=== PATIENT | male | born 2000 | race Caucasian/White ===

== ENCOUNTER 2022-01-24 13:25 | Inpatient (IN) | payer OTHER, MEDICAID, SELFPAY ==
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
[2022-01-24 14:04] VITALS: BP 133/87; PULSE 103; RESP 18; TEMP 37.3; O2SAT 97; BMI 18.3
[2022-01-24 14:35] LABS: MANUAL DIFF FLAG NO
[2022-01-24 14:39] LABS: Appearance Urine HAZY; Color Urine YELLOW; Glucose Urine UA NEG (NEG); Leukocyte Esterase Urine NEG (NEG); Nitrite Urine NEG (NEG); Specific Gravity - Urine 1.015 (1.005-1.025); Urine Blood NEG (NEG); Urine Ketones NEG (NEG); Urine Protein NEG (NEG-TRACE)
[2022-01-24 14:39] LABS: Basophils Percent Auto 0.5 % (0-2); Eosinophils Percent Auto 0.2 % (0-4); Hematocrit 44.8 % (42.0-52.0); Hemoglobin 14.4 g/dl (14.0-18.0); Imm Gran Abs Auto 0.03 X10*3/uL (0.00-0.03); Imm Gran Pct Auto 0.5 % (0.0-0.4); Lymphocytes Absolute Auto 1.4 X10*3/uL (1.2-4.9); Lymphocytes Percent Auto 23.1 % (20-40); Mean Corpuscular HGB Conc 32.1 g/dl (31.0-36.0); Mean Corpuscular Hemoglobin 29.4 pg (27.0-33.0); Mean Corpuscular Volume 91.4 fL (80.0-98.0); Monocytes Absolute Auto 0.4 X10*3/uL (0.1-1.2); Monocytes Percent Auto 7.1 % (2-11); Neutrophils Percent Auto 68.6 % (45-73); Platelet Count 352 X10*3/uL (160-400); Red Cell Distribution Width 12.4 % (11.0-16.0); White Blood Count 5.9 X10*3/uL (4.8-10.8)
[2022-01-24] MEDS: OLANZapine 5 MG TABLET PO (14:42)
--- NOTE | 2022-01-24 14:46 | PC.NURSE ---
Pt medicated with zyprexa as charted, pt states he is going to try to take a nap.
[2022-01-24 14:54] LABS: Ethanol 35 mg/dL
[2022-01-24 14:55] LABS: COVID-19 Test Negative (Negative); IDNOW Serial# 16C4AD1C
[2022-01-24 14:56] LABS: Amphetamine Screen Urine Not Detected (Not Detect); Barbiturates, Urine Not Detected (Not Detect); Benzodiazepines Screen Urine Not Detected (Not Detect); Cannabinoid Screen Urine POSITIVE (Not Detect); Cocaine Screen Urine Not Detected (Not Detect); Fentanyl, urine Not Detected (Not Detect); Opiate Screen Urine Not Detected (Not Detect); Phencyclidine Screen Urine Not Detected (Not Detect)
[2022-01-24 14:58] LABS: Alanine Aminotransferase 16 U/L (0-40); Albumin Level 5.2 g/dL (3.5-5.0); Alkaline Phosphatase 48 U/L (39-117); Anion Gap 13 (12-20); Aspartate Amino Transferase 20 U/L (5-37); Bilirubin Direct 0.3 mg/dL (0.0-0.5); Bilirubin Total 0.6 mg/dL (0.0-1.0); Blood Urea Nitrogen 10 mg/dL (9-16); Calcium 10.7 mg/dL (8.4-10.2); Carbon Dioxide 28 mmol/L (22-29); Chloride 106 mmol/L (96-108); Creatinine Clr Calc Pharmacy 106.9; Estimated Glomerular Filt Rate > 60; Glucose Random 77 mg/dL (60-115); Magnesium 2.6 mg/dL (1.6-2.6); Potassium 4.8 mmol/L (3.3-5.1); Sodium 142 mmol/L (135-145); Total Protein 7.7 g/dL (6.5-8.0)
--- NOTE | 2022-01-24 15:45 | PC.NURSE ---
Pt sleeping at thsi time
--- NOTE | 2022-01-24 16:10 | PC.NURSE ---
Marlee sent to [facility]
--- NOTE | 2022-01-25 00:58 | MHC.CARE ---
Late entry- [facility] was unable to send a clinician for evaluation. CARE team completed assessment, plan is for inpt psych admission. Sect 12a is in chart.
[2022-01-25 06:06] VITALS: BP 97/62; PULSE 70; RESP 16; TEMP 36.7; O2SAT 99
[2022-01-25] MEDS: Nicotine Polacrilex 2 MG GUM BUCCAL ×2 (06:35→23:08)
--- NOTE | 2022-01-25 06:39 | PC.NURSE ---
Patient slept through the night, no distress observed/reported, med rec completed/off medication/ pending provider's approval, disposition per care team is section 12 inpatient bed search, VSS, behavior pleasant and respectful, thought process coherent without any paranoia
--- NOTE | 2022-01-25 07:02 | PC.NURSE ---
Report received. Pt currently resting, denies complaints, in no apparent distress. PT is inpatient bedsearch.
[2022-01-25 10:37] VITALS: BP 112/76; PULSE 76; TEMP 36.9; O2SAT 99
[2022-01-25 11:26] LABS: COVID-19 Test Negative (Negative); IDNOW Serial# 55D5AD1C
[2022-01-25 15:48] VITALS: BP 128/77; PULSE 68; RESP 16; TEMP 36.7
[2022-01-25 16:35] VITALS: BP 159/84; PULSE 72; RESP 20; TEMP 36.1; O2SAT 99
[2022-01-25 18:00] VITALS: BP 120/71; PULSE 60; RESP 16
--- NOTE | 2022-01-25 18:16 | PC.NURSE ---
PT signed a 3 day notice
--- NOTE | 2022-01-25 18:17 | PC.NURSE ---
PT signed a 3 day notice on 01/25/2022
--- NOTE | 2022-01-25 18:17 | PC.ADMIT ---
PT is a 21 year old bahamian speaking male that was admitted onto this unit at 16:32 via wheelchair from [facility] on a conditional voluntary basis. PT was brought to the ED by his mother due to recent delusional and paranoid thought processes. PT has not been attending to ADLS at home, has been drinking alcohol everyday and currently believes there are bots implanted in him and only Francesco Henryk can help him and he has been in contact with him. PT is tearful on admission and speech is tangential and delusional. COVID antigen negative, TOX screen + for marijuana, ETOH 35 upon arrival to ER. PT denies any symptoms of ETOH withdrawl at this time. PT is a current everyday drinker of approximately 4 beers and uses a nicotine vape pen daily. Smoking cessation initiated. PT has not had a flu vaccine this season and refuses upon admission. PT denies SI/HI, AH/VH at this time but describes seeing figures in the past, feels safe on unit. PT signed a 3 day notice shortly after arriving on unit. All legals signed, treatment plan done, safety tool still needs to be completed as patient is unable to complete it due to mental status at this time.
[2022-01-25] MEDS: traZODone HCL 50 MG TABLET PO ×3 (20:49→23:06)
--- NOTE | 2022-01-25 20:55 | PC.NURSE ---
PT currently scoring 0 on CIWA scale. Discussed w/ pt that symptoms may occur due to amount and frequency of alcohol intake and to seek out RN if any symptoms begin to occur. VSS at this time, resting in bed, respirations even and unlabored.
[2022-01-25] MEDS: LORazepam 1 MG TABLET PO (23:07)
[2022-01-25] MEDS: Acetaminophen 325 MG TABLET 650 MG PO (23:07)
--- NOTE | 2022-01-26 | ECG_ITS ---
Test Reason : check qt Blood Pressure : / mmHG Vent. Rate : 070 BPM Atrial Rate : 070 BPM P-R Int : 158 ms QRS Dur : 086 ms QT Int : 366 ms P-R-T Axes : 012 074 042 degrees QTc Int : 395 ms Normal sinus rhythm with sinus arrhythmia Normal ECG No previous ECGs available Referred By: Albino Miranda Electronically Signed By:URSULA CRUM MD
[2022-01-26] MEDS: LORazepam 1 MG TABLET PO ×3 (08:27→20:22)
[2022-01-26] MEDS: Thiamine HCL 100 MG TABLET PO (08:27)
[2022-01-26] MEDS: Multivitamin TABLET 1 TAB PO (08:28)
[2022-01-26 08:30] VITALS: BP 133/81; PULSE 81; TEMP 36.9
[2022-01-26 09:42] LABS: Alanine Aminotransferase 12 U/L (0-40); Albumin Level 4.7 g/dL (3.5-5.0); Alkaline Phosphatase 44 U/L (39-117); Aspartate Amino Transferase 17 U/L (5-37); Bilirubin Direct 0.2 mg/dL (0.0-0.5); Bilirubin Total 0.4 mg/dL (0.0-1.0); Cholesterol 137 mg/dL; HDL Cholesterol 50 mg/dL; LDL Cholesterol Calculated 65 mg/dl; Magnesium 2.3 mg/dL (1.6-2.6); Total Protein 6.9 g/dL (6.5-8.0); Triglycerides 111 mg/dL
[2022-01-26 10:07] LABS: Free T4 (Free Thyroxine) 1.14 ng/dL (0.71-1.85); Thyroid Stimulating Hormone 0.91 uIU/mL (0.32-4.0)
[2022-01-26 10:21] LABS: Estimated Average Glucose 91 mg/dL; Hemoglobin A1c % 4.8 %
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
[2022-01-26 10:28] LABS: Folate 12.9 ng/mL (> or = 4.0); Vitamin B12 296 pg/mL (200-900)
[2022-01-26] MEDS: OLANZapine 10 MG TABLET PO (11:14)
[2022-01-26] MEDS: Divalproex Sodium ER 250 MG TAB.ER.24H PO (12:56)
[2022-01-26 18:00] VITALS: BP 124/66; PULSE 81; TEMP 36.8
[2022-01-26] MEDS: Divalproex Sodium ER 500 MG TAB.ER.24H PO (20:22)
[2022-01-26] MEDS: Magnesium Hydrox/Alum Hydrox 30 ML ORAL.SUSP PO (22:26)
[2022-01-27 06:00] VITALS: BP 124/66; PULSE 118; RESP 18; TEMP 36.7; O2SAT 99
[2022-01-27] MEDS: Divalproex Sodium ER 500 MG TAB.ER.24H PO (09:22)
[2022-01-27] MEDS: Thiamine HCL 100 MG TABLET PO (09:22)
[2022-01-27] MEDS: LORazepam 1 MG TABLET PO ×2 (09:22→20:41)
[2022-01-27] MEDS: Multivitamin TABLET 1 TAB PO (09:22)
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
[2022-01-27 17:32] VITALS: BP 146/72; PULSE 104; RESP 14; TEMP 36.9; O2SAT 99
[2022-01-27] MEDS: Divalproex Sodium ER 250 MG TAB.ER.24H 750 MG PO (20:41)
[2022-01-27] MEDS: risperiDONE 2 MG TABLET PO (20:41)
[2022-01-27] MEDS: traZODone HCL 50 MG TABLET PO (21:56)
[2022-01-27] MEDS: Nicotine Polacrilex 2 MG GUM BUCCAL (21:58)
[2022-01-28 06:00] VITALS: BP 118/75; PULSE 101; RESP 16; TEMP 37; O2SAT 98
[2022-01-28] MEDS: Thiamine HCL 100 MG TABLET PO (08:33)
[2022-01-28] MEDS: Divalproex Sodium ER 250 MG TAB.ER.24H PO (08:33)
[2022-01-28] MEDS: Multivitamin TABLET 1 TAB PO (08:33)
[2022-01-28] MEDS: LORazepam 1 MG TABLET PO ×2 (08:33→21:05)
--- NOTE | 2022-01-28 13:08 | PC.NURSE ---
pt retracted three day notice
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
[2022-01-28 18:00] VITALS: BP 111/76; PULSE 91; RESP 20; TEMP 37.2; O2SAT 97
[2022-01-28] MEDS: traZODone HCL 50 MG TABLET PO (21:05)
[2022-01-29 06:00] VITALS: BP 123/70; PULSE 103; RESP 16; TEMP 37.1; O2SAT 97
[2022-01-29] MEDS: LORazepam 1 MG TABLET PO ×2 (08:18→20:13)
[2022-01-29] MEDS: Divalproex Sodium ER 250 MG TAB.ER.24H PO (08:18)
[2022-01-29] MEDS: Thiamine HCL 100 MG TABLET PO (08:18)
[2022-01-29] MEDS: Multivitamin TABLET 1 TAB PO (08:18)
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
[2022-01-29 18:00] VITALS: BP 128/80; PULSE 113; RESP 16; TEMP 36.8; O2SAT 98
[2022-01-29] MEDS: Divalproex Sodium ER 250 MG TAB.ER.24H 750 MG PO (20:13)
[2022-01-29] MEDS: risperiDONE 2 MG TABLET 4 MG PO (20:13)
[2022-01-30 06:00] VITALS: BP 121/77; PULSE 100; RESP 18; TEMP 36.3; O2SAT 99
[2022-01-30] MEDS: LORazepam 1 MG TABLET PO (07:52)
[2022-01-30] MEDS: Thiamine HCL 100 MG TABLET PO (07:52)
[2022-01-30] MEDS: Divalproex Sodium ER 250 MG TAB.ER.24H PO (07:52)
[2022-01-30] MEDS: Multivitamin TABLET 1 TAB PO (07:52)
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
[2022-01-30] MEDS: Acetaminophen 325 MG TABLET 650 MG PO (12:25)
--- NOTE | 2022-01-30 16:24 | PC.NURSE ---
Patient retracted his 3 day notice on 01/30/22
[2022-01-30 18:00] VITALS: BP 136/66; PULSE 95; TEMP 36.8; O2SAT 99
[2022-01-30] MEDS: Divalproex Sodium ER 250 MG TAB.ER.24H 750 MG PO (20:38)
[2022-01-30] MEDS: risperiDONE 2 MG TABLET 4 MG PO (20:39)
[2022-01-31 05:13] VITALS: BP 107/65; PULSE 78; RESP 16; TEMP 36.3; O2SAT 99
[2022-01-31 08:30] LABS: Ammonia 35 umol/L (13-55)
[2022-01-31 08:33] LABS: Alanine Aminotransferase 23 U/L (0-40); Albumin Level 4.6 g/dL (3.5-5.0); Alkaline Phosphatase 43 U/L (39-117); Aspartate Amino Transferase 19 U/L (5-37); Total Protein 6.8 g/dL (6.5-8.0)
[2022-01-31 08:38] LABS: Valproate 43.5 mcg/mL (50.0-100.0)
[2022-01-31 08:48] LABS: Bilirubin Direct < 0.2 mg/dL (0.0-0.5); Bilirubin Total 0.2 mg/dL (0.0-1.0)
[2022-01-31] MEDS: Multivitamin TABLET 1 TAB PO (09:16)
[2022-01-31] MEDS: Divalproex Sodium ER 250 MG TAB.ER.24H PO (09:16)
[2022-01-31] MEDS: Thiamine HCL 100 MG TABLET PO (09:16)
[2022-01-31] MEDS: Magnesium Hydrox/Alum Hydrox 30 ML ORAL.SUSP PO (12:41)
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
--- NOTE | 2022-01-31 19:15 | PC.NURSE ---
Pt submitted a 3-Day Notice on Sunday01/31/2022, up on Sunday02/03/2022.
[2022-01-31 19:25] VITALS: BP 139/89; PULSE 94; TEMP 36.9
[2022-01-31] MEDS: Divalproex Sodium ER 500 MG TAB.ER.24H 1000 MG PO (21:55)
[2022-01-31] MEDS: risperiDONE 2 MG TABLET 4 MG PO (21:56)
[2022-02-01 06:00] VITALS: BP 128/77; PULSE 92; RESP 16; TEMP 36.8; O2SAT 99
[2022-02-01] MEDS: Multivitamin TABLET 1 TAB PO (08:13)
[2022-02-01] MEDS: Divalproex Sodium ER 250 MG TAB.ER.24H PO (08:13)
[2022-02-01] MEDS: Thiamine HCL 100 MG TABLET PO (08:13)
[2022-02-01 18:00] VITALS: BP 141/72; PULSE 99; TEMP 36.9; O2SAT 98
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
[2022-02-01] MEDS: Divalproex Sodium ER 500 MG TAB.ER.24H 1000 MG PO (20:37)
[2022-02-01] MEDS: risperiDONE 2 MG TABLET 4 MG PO (20:37)
[2022-02-02] MEDS: traZODone HCL 50 MG TABLET PO ×2 (00:07→20:00)
[2022-02-02 06:00] VITALS: BP 132/58; PULSE 103; RESP 18; TEMP 36.8; O2SAT 98
[2022-02-02] MEDS: Divalproex Sodium ER 250 MG TAB.ER.24H PO (08:59)
[2022-02-02] MEDS: Acetaminophen 325 MG TABLET 650 MG PO ×2 (08:59→21:01)
[2022-02-02] MEDS: Thiamine HCL 100 MG TABLET PO (08:59)
[2022-02-02] MEDS: Multivitamin TABLET 1 TAB PO (08:59)
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
--- NOTE | 2022-02-02 16:53 | P.DS_ITS ---
DS: Providers Provider Date of Service: 02/03/22 Date of admission: 01/25/22 15:22 Date of discharge: 02/03/22 Primary care physician: Unknown Physician Attending physician on admission: Albino Miranda Attending physician on discharge: Albino Miranda DS: Diagnosis Discharge Diagnosis (1) Bipolar disorder, current episode manic severe with psychotic features: Status: Acute DS: Medications Discharge Medications Home Medications: Previous Rx's Medication Instructions Recorded divalproex 250 mg tablet,extended 250 mg PO BEDTIME 30 Days #30 tab 02/02/22 release 24 hr divalproex 500 mg tablet,extended 1,000 mg PO BEDTIME 30 Days #60 tab 02/02/22 release 24 hr risperidone 4 mg tablet 4 mg PO BEDTIME 30 Days #30 tab 02/02/22 trazodone 50 mg tablet 50 mg PO BEDTIME PRN 30 Days #30 02/02/22 tab Mental Status Exam Mental Status Exam Narrative: Alert, oriented, mood and affect are euthymic, flat. Thought process/content without perceptual alterations, paranoia or delusions. Denies SI, HI. Data Data Completed and Pending Completed studies during hospitalization [Text1]: 01/31/22 01/31/22 07:49 07:49 Total Bilirubin 0.2 Direct Bilirubin < 0.2 AST 19 ALT 23 Alkaline Phosphatase 43 Ammonia 35 Total Protein 6.8 Albumin 4.6 Valproic Acid 43.5 L DS: Summary Hospital Course Hospital Course: HPI: Patient is a 21-year-old male with unknown psychiatric history who presents for chauncey and persecutory delusions.? Patient is hyperverbal but interruptible.? He explains in detail how he came to the conclusion that he is in the middle of a Zaira bot wore and the need to defend himself against evil Zaira-bots. On admission Patient has pressured speech however his thought process is linear and he is interruptible.? Per care team note and patient's report he has not been sleeping much or at all for the past few weeks making bipolar disorder leading diagnosis.? Patient reportedly has some genetic loading for bipolar disorder, his mother saying that his biological father may also have this illness.? It? is not clear how long patient has been struggling with symptoms; he says this started about 2 and half years ago.? Hospital course: On Admission, Patient was floridly delusional wth manic symptoms, pressured speech and paranoid delusions believing he was being persecuted by space aliens and that he is part of a space force program to combat these aliens, headed by Francesco Merlos...? which he believes is 100% true. However although patient lacked all insight into his delusional thoughts he was willing to take medication and agreed to Ativan and Depakote which started to mitigate his symptoms. Zyprexa had been started but was discontinued since not helpful and Depakote Risperdal started instead. For several days patient remained floridly delusional with persecutory paranoid thoughts. However he remained willing to stay for treatment, thankful to staff and he retracted his 3 day notice. Patient's medications were titrated and were well tolerated. Patient started to sleep through the night and no longer felt attacked by aliens. He continued to sleep well and his paranoid delusions slowly began to subside. Also his speech became much less pressured. Patient's delusional thinking lingered but he was aware that they were concerning to others and was willing to keep him private. He said I just want to go back to normal life... ? 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 Computer System Specialist Inquired how he envisions handling working with others and navigating his beliefs to which patient shared that he Has no intention at all of discussing his beliefs on the job and that while at working that is all he will be doing; he says he understands this topic is controversial for others and will keep his beliefs to himself.? Patient remained on the unit however and as more time continued and medications were therapeutic his paranoid delusions also began to kishor and eventually seemed to fully resolve. Patients insight significantly improved and he accepted that he has a psychiatric illness of bipolar disorder and that he needed medications in order to remain stable. Throughout his time in the unit, patient was appropriate with peers and staff, interacting in a respectful and polite manner; he did not demonstrate any dangerous behaviors to himself or others and rather demonstrated impulse control and overall good behaviors. He denied any SI or HI or AVH. Patient said he was feeling much better and placed a 3 day notice feeling ready to discharge. Patient's mother Lenora was involved and confirmed the patient had no history of aggression or being unsafe with himself or anyone else and she agreed that he was ready for discharge. Discharging to supportive environment at [facility], future oriented. Safe, stable, appropriate for discharge. He is not in imminent risk for harm to self or others and is able to take care of himself in the community. Patient's request for discharge honored Time spent discussing smoking cessation with patient: 3 to 10 minutes Status at Discharge Functional status at discharge: independent ambulation Overall status at discharge: patient is back to baseline Time Spent with Patient Time attestation: Total time spent providing and/or coordinating discharge services: Time spent: Less than 30 minutes Discharge Plan Discharge Patient Disposition: Home, Self-Care Discharge Diagnosis: Bipolar disorder type 1, single episode, severe with psychotic features in remission Referrals: [facility] ([facility]) [Other] - 1 Week (Please contact [facility] at the above number for assistance with obtaining work) Therapy: Vita Arredondo [Other] - 02/07/22 10:00 am (This is an in-office appointment ) Psychiatric Med Evaluation: Marlene Amador [Other] - 03/06/22 2:00 pm (This is a virtual Telehealth appointment) Psychiatric Med Management: Marlene Amador [Other] - 04/03/22 10:00 am (This is a virtual Telehealth appointment ) leana peacock [Other] - 02/17/22 11:00 am (in house) Discharge Medications: New divalproex 500 mg Tablet Extended Release 24 Hr 1,000 mg PO BEDTIME 30 Days Qty: 60 0RF Rx Instructions: take with 250mg tab divalproex 250 mg Tablet Extended Release 24 Hr 250 mg PO BEDTIME 30 Days Qty: 30 0RF risperidone 4 mg tablet 4 mg PO BEDTIME 30 Days Qty: 30 0RF trazodone 50 mg Tablet 50 mg PO BEDTIME PRN (Reason: Insomnia) 30 Days Qty: 30 0RF Discontinued amitriptyline 50 mg tablet 1 tab PO BEDTIME 0RF No Action levofloxacin 750 mg tablet 750 mg PO Q24H Qty: 6 0RF metronidazole 500 mg tablet 500 mg PO Q8H 7 Days Qty: 21 0RF Discharge Orders: Discharge Order (Routine); Ordered 02/03/22 Ordered By: Albino Miranda Diet: regular diet Activity on Discharge: As tolerated Stand Alone Forms: Patient Portal Discharge page, Community Support Care Plan Goals: Maintain mood and safe behaviors Take medications as prescribed Continue to pursue sobriety Practice coping skills Continue with outpatient providers and reach out to them as needed Health Concerns: Mood stability and behaviors Sobriety Plan of Treatment: Follow up with your psychiatric provider and other outpatient providers regarding above concerns Take medications as prescribed Assessment: Risk assessment at time of discharge:? Patient was interviewed prior to discharge and found to be fully oriented and without any SI or HI. Patient has insight and demonstrates good judgment in terms of wanting to pursue treatment. Patient is not in imminent risk of harm to self or others and has a safety plan that includes presenting to the closest ER or calling 911 if feeling unsafe.? Patient has been observed closely by nursing and unit staff throughout admission; patient has not engaged in any behaviors that suggest dangerousness to self or others and has demonstrated appropriate behaviors and impulse control Discharge Date/Time: 02/03/22 13:40
[2022-02-02] MEDS: risperiDONE 2 MG TABLET 4 MG PO (19:59)
[2022-02-02] MEDS: Divalproex Sodium ER 500 MG TAB.ER.24H 1000 MG PO (20:00)
[2022-02-03 06:00] VITALS: BP 123/68; PULSE 103; RESP 16; TEMP 36.6; O2SAT 98
[2022-02-03] MEDS: Thiamine HCL 100 MG TABLET PO (08:09)
[2022-02-03] MEDS: Multivitamin TABLET 1 TAB PO (08:09)
[2022-02-03] MEDS: Divalproex Sodium ER 250 MG TAB.ER.24H PO (08:09)
[2022-02-03 09:16] LABS: Ammonia 34 umol/L (13-55)
[2022-02-03 09:26] LABS: Valproate 50.7 mcg/mL (50.0-100.0)
[2022-02-03 09:42] LABS: Alanine Aminotransferase 62 U/L (0-40); Albumin Level 4.7 g/dL (3.5-5.0); Alkaline Phosphatase 42 U/L (39-117); Aspartate Amino Transferase 45 U/L (5-37); Bilirubin Direct < 0.2 mg/dL (0.0-0.5); Bilirubin Total 0.3 mg/dL (0.0-1.0); Total Protein 7.1 g/dL (6.5-8.0)
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
== END 2022-02-03 13:40 | disposition home or self-care (01) | DRG 753 ==
LOC: HO.ED 01-25 08:57 → HO.PM5 01-25 15:39
PROVIDERS: Clinical Nurse Specialist Psychiatric/Mental Health, Adult; Nurse Practitioner Family; Physician Assistant; Admitting Provider Psychiatry & Neurology Psychiatry; Emergency Provider Emergency Medicine; Visit Provider Psychiatry & Neurology Psychiatry
DX: F31.2 Bipolar disorder, current episode manic severe with psychotic features (principal); F10.10 Alcohol abuse, uncomplicated; F17.290 Nicotine dependence, other tobacco product, uncomplicated; Z71.6 Tobacco abuse counseling; Z20.822 Contact with and (suspected) exposure to COVID-19; Z79.899 Other long term (current) drug therapy
CPT/HCPCS: 36415; 80048; 80061; 80076; 80164; 80307; 81003; 82077; 82140; 82607; 82746; 83036; 83735; 84439; 84443; 85025; 87635; 93005; 99285

== ENCOUNTER 2022-02-22 15:51 | Emergency (ER) | payer MEDICAID, SELFPAY ==
--- NOTE | ~2022-02-22 | CT_ITS ---
EXAMINATION: CT ABDOMEN AND PELVIS WITHOUT CONTRAST CLINICAL INFORMATION: Red blood per rectum, family history of colon cancer COMPARISON: None TECHNIQUE: Multidetector volumetric imaging was performed from the superior aspect of the liver through the pubic symphysis. Sagittal and coronal reformatted images were obtained on the technologist's workstation. This CT examination was performed using dose optimization techniques as appropriate, variously including the following: *Automated exposure control *Adjustment of mA and/or kV according to patient size (this includes techniques or standardized protocols for targeted exams where dose is matched to indication/reason for exam; i.e. extremities or head) *Use of iterative reconstruction technique DLP: 389 mGy-cm FINDINGS: LUNG BASES: The visualized lung bases are unremarkable. LIVER, GALLBLADDER, AND BILIARY TREE: The liver is normal in size, shape, and attenuation. No focal hepatic lesion or biliary ductal dilatation is present. The gallbladder is unremarkable with no evidence of radiopaque gallstones, gallbladder wall thickening, or obvious pericholecystic inflammatory changes. PANCREAS: Unremarkable. SPLEEN: Unremarkable. ADRENAL GLANDS: Unremarkable. KIDNEYS AND URETERS: The kidneys are normal in size, shape, and attenuation. No hydronephrosis, hydroureter, or calculi seen. No perinephric stranding. BLADDER: Unremarkable. GASTROINTESTINAL TRACT: The bowel pattern is felt to be nonobstructing. There is no free fluid. The appendix is felt to be within normal limits. Cannot exclude some mild mucosal thickening of the jejunal loops ABDOMINAL WALL: No significant hernia is appreciated. LYMPH NODES: Some mildly prominent nodes in the mesentery. No bulky adenopathy. VASCULAR: Unremarkable. PELVIC VISCERA: Unremarkable. OSSEOUS STRUCTURES: Unremarkable. CT/CT abdomen pelvis wo con IMPRESSION: Cannot exclude some mild thickening of the jejunal loops. Enteritis would be a consideration. The bowel pattern is nonobstructing. There is no free fluid. Fleischner guidelines were followed.
[2022-02-22 16:26] VITALS: BP 124/70; PULSE 86; RESP 17; TEMP 37; O2SAT 98; BMI 21.2
[2022-02-22 16:34] LABS: MANUAL DIFF FLAG NO
[2022-02-22 16:38] LABS: Basophils Percent Auto 0.7 % (0-2); Eosinophils Percent Auto 0.7 % (0-4); Hematocrit 41.9 % (42.0-52.0); Hemoglobin 13.9 g/dl (14.0-18.0); Imm Gran Abs Auto 0.03 X10*3/uL (0.00-0.03); Imm Gran Pct Auto 0.5 % (0.0-0.4); Lymphocytes Absolute Auto 2.1 X10*3/uL (1.2-4.9); Lymphocytes Percent Auto 36.8 % (20-40); Mean Corpuscular HGB Conc 33.2 g/dl (31.0-36.0); Mean Corpuscular Hemoglobin 30.6 pg (27.0-33.0); Mean Corpuscular Volume 92.3 fL (80.0-98.0); Monocytes Absolute Auto 0.5 X10*3/uL (0.1-1.2); Monocytes Percent Auto 9.6 % (2-11); Neutrophils Absolute Auto 2.9 x10*3/uL (2.0-8.3); Neutrophils Percent Auto 51.7 % (45-73); Platelet Count 303 X10*3/uL (160-400); Red Blood Count 4.54 X10*6/uL (4.60-5.80); Red Cell Distribution Width 12.7 % (11.0-16.0); White Blood Count 5.6 X10*3/uL (4.8-10.8)
[2022-02-22 16:53] LABS: Alanine Aminotransferase 14 U/L (0-40); Albumin Level 5.3 g/dL (3.5-5.0); Alkaline Phosphatase 35 U/L (39-117); Anion Gap 15 (12-20); Aspartate Amino Transferase 18 U/L (5-37); Bilirubin Total 0.4 mg/dL (0.0-1.0); Blood Urea Nitrogen 9 mg/dL (9-16); Calcium 10.9 mg/dL (8.4-10.2); Carbon Dioxide 28 mmol/L (22-29); Chloride 104 mmol/L (96-108); Creatinine Clr Calc Pharmacy 125.9; Estimated Glomerular Filt Rate > 60; Glucose Random 84 mg/dL (60-115); Potassium 4.5 mmol/L (3.3-5.1); Sodium 142 mmol/L (135-145)
[2022-02-22 16:57] LABS: COVID-19 Test Negative (Negative); IDNOW Serial# 55D5AD1C
[2022-02-22 17:01] LABS: Influenza A Negative (Negative); Influenza B2 Negative (Negative)
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
[2022-02-22 17:21] VITALS: BP 109/62; PULSE 65; RESP 16; TEMP 36.8; O2SAT 97
[2022-02-22 18:09] LABS: Valproate 2.6 mcg/mL (50.0-100.0)
[2022-02-22 19:14] VITALS: BP 101/59; PULSE 79; RESP 14; TEMP 36.6; O2SAT 99
[2022-02-22] MEDS: levoFLOXacin 750 MG TABLET PO (19:15)
[2022-02-22] MEDS: Divalproex Sodium 500 MG TABLET.DR 1000 MG PO (19:15)
== END 2022-02-22 19:23 | disposition home or self-care (01) ==
PROVIDERS: Nurse Practitioner Family; Emergency Provider Emergency Medicine
DX: K52.9 Noninfective gastroenteritis and colitis, unspecified (principal); K62.5 Hemorrhage of anus and rectum; F31.9 Bipolar disorder, unspecified; Z79.899 Other long term (current) drug therapy; Z20.822 Contact with and (suspected) exposure to COVID-19
CPT/HCPCS: 36415; 74176; 80053; 80164; 85025; 87502; 87635; 99284

== ENCOUNTER 2022-04-18 16:34 | Inpatient (IN) | payer OTHER, MEDICAID, SELFPAY ==
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
--- NOTE | 2022-04-18 17:06 | ECG_ITS ---
Test Reason : MEDICAL CLEARANCE Blood Pressure : / mmHG Vent. Rate : 063 BPM Atrial Rate : 063 BPM P-R Int : 156 ms QRS Dur : 088 ms QT Int : 362 ms P-R-T Axes : 050 077 070 degrees QTc Int : 370 ms Sinus rhythm with marked sinus arrhythmia Early repolarization Otherwise normal ECG When compared with ECG of 26-JAN-2022 18:27, No significant change was found Referred By: Mariia Hidalgo Electronically Signed By:ZOHREH SHABAZZ
[2022-04-18 17:10] VITALS: BP 122/72; BP 122/77; PULSE 80; RESP 18; TEMP 36.9; O2SAT 98; O2SAT 99; BMI 21.4
[2022-04-18 18:01] LABS: Appearance Urine CLEAR; COVID-19 Test Negative (Negative); Color Urine YELLOW; Glucose Urine UA NEG (NEG); Leukocyte Esterase Urine NEG (NEG); Nitrite Urine NEG (NEG); PH 6.5 (5.0-8.0); Urine Blood NEG (NEG); Urine Ketones >=80 MG/DL (NEG); Urine Protein NEG (NEG-TRACE)
[2022-04-18 18:03] LABS: Fentanyl, urine Not Detected (Not Detect)
[2022-04-18 18:11] LABS: Amphetamine Screen Urine Not Detected (Not Detect); Barbiturates, Urine Not Detected (Not Detect); Cannabinoid Screen Urine POSITIVE (Not Detect); Cocaine Screen Urine Not Detected (Not Detect); Opiate Screen Urine Not Detected (Not Detect); Phencyclidine Screen Urine Not Detected (Not Detect)
[2022-04-18 18:15] LABS: MANUAL DIFF FLAG NO
[2022-04-18 18:29] LABS: Basophils Percent Auto 0.2 % (0-2); Eosinophils Percent Auto 0.5 % (0-4); Hematocrit 35.2 % (42.0-52.0); Hemoglobin 11.6 g/dl (14.0-18.0); Lymphocytes Absolute Auto 1.7 X10*3/uL (1.2-4.9); Lymphocytes Percent Auto 29.5 % (20-40); Mean Platelet Volume 9.6 fL (9.4-12.4); Monocytes Absolute Auto 0.6 X10*3/uL (0.1-1.2); Monocytes Percent Auto 9.7 % (2-11); Neutrophils Absolute Auto 3.4 x10*3/uL (2.0-8.3); Neutrophils Percent Auto 60.1 % (45-73); Platelet Count 288 X10*3/uL (160-400); Red Cell Distribution Width 11.9 % (11.0-16.0); White Blood Count 5.7 X10*3/uL (4.8-10.8)
[2022-04-18 18:36] LABS: Anion Gap 12 (12-20); Blood Urea Nitrogen 6 mg/dL (9-16); Calcium 9.8 mg/dL (8.4-10.2); Carbon Dioxide 26 mmol/L (22-29); Chloride 107 mmol/L (96-108); Creatinine Clr Calc Pharmacy 128.1; Estimated Glomerular Filt Rate > 60; Ethanol < 10 mg/dL; Glucose Random 83 mg/dL (60-115); Sodium 141 mmol/L (135-145)
[2022-04-19 00:56] VITALS: BP 125/86; PULSE 80; RESP 16; TEMP 37.1; O2SAT 100
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
[2022-04-19 09:52] VITALS: BP 122/69; PULSE 93; TEMP 37.3; O2SAT 95
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
[2022-04-19] MEDS: Ziprasidone 20 MG CAPSULE PO ×2 (13:16→18:00)
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
[2022-04-19] MEDS: clonazePAM 0.5 MG TABLET PO (18:00)
[2022-04-19 19:50] VITALS: BP 189/86; PULSE 76; TEMP 36.4
[2022-04-19] MEDS: Zolpidem Tartrate 5 MG TABLET PO (22:34)
[2022-04-20 08:41] LABS: Benzodiazepines Screen Urine NOT DETECTED (Not Detect)
[2022-04-20] MEDS: clonazePAM 0.5 MG TABLET PO (08:56)
[2022-04-20] MEDS: Ziprasidone 20 MG CAPSULE PO (08:57)
[2022-04-20] MEDS: Multivitamin TABLET 1 TAB PO (08:57)
[2022-04-20 09:07] VITALS: BP 125/78; PULSE 104; RESP 15; TEMP 36.6; O2SAT 95
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
[2022-04-20 10:29] LABS: Alanine Aminotransferase 14 U/L (0-40); Albumin Level 4.8 g/dL (3.5-5.0); Alkaline Phosphatase 36 U/L (39-117); Anion Gap 11 (12-20); Aspartate Amino Transferase 15 U/L (5-37); Bilirubin Total 0.5 mg/dL (0.0-1.0); Blood Urea Nitrogen 7 mg/dL (9-16); Calcium 9.6 mg/dL (8.4-10.2); Carbon Dioxide 25 mmol/L (22-29); Chloride 108 mmol/L (96-108); Cholesterol 131 mg/dL; Creatinine Clr Calc Pharmacy 131.2; Estimated Glomerular Filt Rate > 60; Glucose Fasting 95 mg/dL (60-99); HDL Cholesterol 54 mg/dL; LDL Cholesterol Calculated 67 mg/dl; Magnesium 2.2 mg/dL (1.6-2.6); Potassium 4.4 mmol/L (3.3-5.1); Sodium 140 mmol/L (135-145); Total Protein 6.8 g/dL (6.5-8.0); Triglycerides 53 mg/dL
[2022-04-20 10:52] LABS: Free T4 (Free Thyroxine) 1.26 ng/dL (0.71-1.85); Thyroid Stimulating Hormone 0.98 uIU/mL (0.32-4.0)
[2022-04-20 11:23] LABS: Folate 14.7 ng/mL (> or = 4.0); Vitamin B12 369 pg/mL (200-900)
[2022-04-20] MEDS: Ziprasidone 40 MG CAPSULE PO (17:04)
[2022-04-20 18:00] VITALS: BP 115/78; PULSE 95; RESP 16; TEMP 36.6; O2SAT 99
[2022-04-20] MEDS: Zolpidem Tartrate 5 MG TABLET PO (20:44)
[2022-04-21 06:00] VITALS: BP 121/76; PULSE 94; RESP 16; TEMP 36.6; O2SAT 98
[2022-04-21] MEDS: Multivitamin TABLET 1 TAB PO (08:37)
[2022-04-21] MEDS: clonazePAM 0.5 MG TABLET PO (08:38)
[2022-04-21] MEDS: Ziprasidone 40 MG CAPSULE PO ×2 (08:38→16:47)
--- NOTE | 2022-04-21 13:50 | PC.NURSE ---
PT SIGNED A 3 DAY NOTICE ON Sunday04/21/22 THAT WILL BE UP ON Sunday04/27/22.
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
[2022-04-21 18:00] VITALS: BP 121/76; PULSE 94; RESP 16; TEMP 36.6; O2SAT 98
[2022-04-21] MEDS: Lithium Carbonate ER 300 MG TABLET.ER PO (20:16)
[2022-04-21] MEDS: Zolpidem Tartrate 5 MG TABLET PO (20:16)
[2022-04-22 06:00] VITALS: BP 128/71; PULSE 84; TEMP 36.7; O2SAT 98
[2022-04-22] MEDS: Ziprasidone 40 MG CAPSULE PO ×2 (08:50→18:51)
[2022-04-22] MEDS: Multivitamin TABLET 1 TAB PO (08:50)
[2022-04-22] MEDS: clonazePAM 0.5 MG TABLET PO (08:50)
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
[2022-04-22] MEDS: LORazepam 1 MG TABLET PO (16:52)
[2022-04-22] MEDS: Acetaminophen 325 MG TABLET 650 MG PO (16:52)
[2022-04-22 18:00] VITALS: BP 124/82; PULSE 86; TEMP 36.8; O2SAT 98
[2022-04-22] MEDS: Lithium Carbonate ER 300 MG TABLET.ER PO (20:46)
[2022-04-22] MEDS: Zolpidem Tartrate 5 MG TABLET PO (20:46)
[2022-04-23 06:43] VITALS: BP 123/70; PULSE 107; RESP 14; TEMP 36.7; O2SAT 98
[2022-04-23] MEDS: Ziprasidone 40 MG CAPSULE PO ×2 (08:35→18:27)
[2022-04-23] MEDS: clonazePAM 0.5 MG TABLET PO (08:36)
[2022-04-23] MEDS: Multivitamin TABLET 1 TAB PO (08:36)
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
[2022-04-23 18:25] VITALS: BP 115/71; PULSE 82; TEMP 36.6; O2SAT 97
[2022-04-23] MEDS: Zolpidem Tartrate 5 MG TABLET PO (22:01)
[2022-04-23] MEDS: Lithium Carbonate ER 300 MG TABLET.ER PO (22:01)
[2022-04-24 06:00] VITALS: BP 111/62; PULSE 72; TEMP 36.8; O2SAT 100
[2022-04-24] MEDS: Ziprasidone 40 MG CAPSULE PO ×2 (09:25→16:30)
[2022-04-24] MEDS: clonazePAM 0.5 MG TABLET PO (09:25)
[2022-04-24] MEDS: Multivitamin TABLET 1 TAB PO (09:26)
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
[2022-04-24 21:40] VITALS: BP 105/71; PULSE 100; TEMP 36.6
[2022-04-24] MEDS: traZODone HCL 50 MG TABLET PO (22:12)
[2022-04-24] MEDS: diphenhydrAMINE HCL 25 MG TABLET 50 MG PO (22:13)
[2022-04-24] MEDS: Lithium Carbonate ER 300 MG TABLET.ER PO (22:13)
[2022-04-25 06:00] VITALS: BP 117/60; PULSE 77; RESP 16; TEMP 36.6; O2SAT 100
[2022-04-25] MEDS: Ziprasidone 40 MG CAPSULE PO ×2 (09:12→17:55)
[2022-04-25] MEDS: Multivitamin TABLET 1 TAB PO (09:12)
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
[2022-04-25] MEDS: chlorproMAZINE HCl 25 MG TABLET PO (12:42)
[2022-04-25] MEDS: Lithium Carbonate ER 300 MG TABLET.ER PO (12:42)
[2022-04-25 21:15] VITALS: BP 134/85; PULSE 100; TEMP 36.4; O2SAT 99
[2022-04-25] MEDS: diphenhydrAMINE HCL 25 MG TABLET 50 MG PO (21:22)
[2022-04-25] MEDS: Lithium Carbonate ER 300 MG TABLET.ER 600 MG PO (21:22)
[2022-04-26 06:00] VITALS: BP 115/55; PULSE 96; TEMP 36.6; O2SAT 99
[2022-04-26] MEDS: Ziprasidone 40 MG CAPSULE PO ×2 (09:12→18:08)
[2022-04-26] MEDS: Multivitamin TABLET 1 TAB PO (09:13)
[2022-04-26] MEDS: Lithium Carbonate ER 300 MG TABLET.ER PO (11:27)
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
[2022-04-26] MEDS: OLANZapine 5 MG TABLET PO (12:07)
[2022-04-26] MEDS: chlorproMAZINE HCl 25 MG TABLET 50 MG PO (14:03)
[2022-04-26] MEDS: clonazePAM 0.5 MG TABLET PO ×2 (14:22→21:45)
[2022-04-26 18:00] VITALS: BP 120/72; PULSE 92; TEMP 36.6; O2SAT 99
--- NOTE | 2022-04-26 20:14 | PC.NURSE ---
Patient's mother called at 1999 this evening worried about the patient. She said she will be working tomorrow and was concerned the patient was coming home. This play writer told her that patient retracted his 3 day notice. Mother also said she has not heard from anyone about the [facility] paperwork she sent over. Mother wanted to know why no one is calling her back about her son's progress or lack thereof. Mother was reassured information would be passed along.
[2022-04-26] MEDS: Lithium Carbonate ER 300 MG TABLET.ER 600 MG PO (21:45)
[2022-04-27 06:00] VITALS: BP 108/66; PULSE 88; TEMP 36.9; O2SAT 98
[2022-04-27 07:00] VITALS: BMI 20.9
[2022-04-27] MEDS: Lithium Carbonate 300 MG TABLET PO (08:37)
[2022-04-27] MEDS: clonazePAM 0.5 MG TABLET PO ×2 (08:37→20:14)
[2022-04-27] MEDS: Ziprasidone 40 MG CAPSULE PO ×2 (08:37→16:23)
[2022-04-27] MEDS: Multivitamin TABLET 1 TAB PO (08:37)
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
[2022-04-27 18:00] VITALS: BP 137/77; PULSE 101; TEMP 35.8; O2SAT 99
[2022-04-27] MEDS: Lithium Carbonate ER 300 MG TABLET.ER 600 MG PO (20:15)
[2022-04-27] MEDS: chlorproMAZINE HCl 25 MG TABLET 50 MG PO (20:37)
[2022-04-28 06:00] VITALS: BP 119/62; PULSE 98; RESP 18; TEMP 36.4; O2SAT 99
--- NOTE | 2022-04-28 07:00 | ECG_ITS ---
Test Reason : CHECK QTC Blood Pressure : / mmHG Vent. Rate : 079 BPM Atrial Rate : 079 BPM P-R Int : 178 ms QRS Dur : 090 ms QT Int : 362 ms P-R-T Axes : 065 074 055 degrees QTc Int : 415 ms Normal sinus rhythm with sinus arrhythmia Normal ECG When compared with ECG of 18-APR-2022 19:09, No significant change was found Referred By: Albino Miranda Electronically Signed By:Gio Juarez
[2022-04-28] MEDS: clonazePAM 0.5 MG TABLET PO ×2 (09:07→20:37)
[2022-04-28] MEDS: Multivitamin TABLET 1 TAB PO (09:07)
[2022-04-28] MEDS: Lithium Carbonate 300 MG TABLET PO (09:07)
[2022-04-28] MEDS: Ziprasidone 40 MG CAPSULE PO (09:07)
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
[2022-04-28] MEDS: Ziprasidone 20 MG CAPSULE PO (12:27)
[2022-04-28] MEDS: chlorproMAZINE HCl 25 MG TABLET 50 MG PO ×2 (12:28→20:45)
[2022-04-28] MEDS: diphenhydrAMINE HCL 25 MG TABLET 50 MG PO ×2 (15:53→20:44)
[2022-04-28 16:55] VITALS: BP 112/72; PULSE 88; TEMP 36.2
[2022-04-28] MEDS: Ziprasidone 60 MG CAPSULE PO (18:14)
[2022-04-28] MEDS: Lithium Carbonate ER 300 MG TABLET.ER 600 MG PO (20:36)
[2022-04-29 04:31] VITALS: BP 115/70; PULSE 93; RESP 16; TEMP 36.1; O2SAT 100
[2022-04-29] MEDS: chlorproMAZINE HCl 25 MG TABLET 50 MG PO ×2 (04:34→11:31)
[2022-04-29] MEDS: OLANZapine 5 MG TABLET PO (04:34)
[2022-04-29] MEDS: Ziprasidone 60 MG CAPSULE PO ×2 (08:30→16:44)
[2022-04-29] MEDS: Lithium Carbonate 300 MG TABLET PO (08:30)
[2022-04-29] MEDS: clonazePAM 0.5 MG TABLET PO ×2 (08:30→21:32)
[2022-04-29] MEDS: Multivitamin TABLET 1 TAB PO (08:30)
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
[2022-04-29 18:00] VITALS: BP 124/77; PULSE 97; RESP 14
[2022-04-29] MEDS: Lithium Carbonate ER 300 MG TABLET.ER 600 MG PO (21:32)
[2022-04-30 06:00] VITALS: BP 113/59; PULSE 99; RESP 18; TEMP 36.9; O2SAT 99
[2022-04-30 07:38] LABS: Lithium 0.36 mmol/L (0.60-1.20)
[2022-04-30 07:46] LABS: Anion Gap 13 (12-20); Blood Urea Nitrogen 13 mg/dL (9-16); Carbon Dioxide 28 mmol/L (22-29); Chloride 103 mmol/L (96-108); Estimated Glomerular Filt Rate > 60; Potassium 4.5 mmol/L (3.3-5.1); Sodium 139 mmol/L (135-145)
[2022-04-30 08:09] LABS: TSH reflex Free T4 1.96 uIU/mL (0.32-4.0)
[2022-04-30] MEDS: Lithium Carbonate 300 MG TABLET PO (08:43)
[2022-04-30] MEDS: Ziprasidone 60 MG CAPSULE PO ×2 (08:43→18:19)
[2022-04-30] MEDS: Multivitamin TABLET 1 TAB PO (08:43)
[2022-04-30] MEDS: clonazePAM 0.5 MG TABLET PO ×2 (08:43→21:18)
[2022-04-30] MEDS: chlorproMAZINE HCl 25 MG TABLET 50 MG PO ×2 (12:50→19:33)
[2022-04-30] MEDS: diphenhydrAMINE HCL 25 MG TABLET 50 MG PO ×2 (13:44→21:21)
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
[2022-04-30 18:00] VITALS: BP 112/68; PULSE 68
[2022-04-30] MEDS: Lithium Carbonate ER 300 MG TABLET.ER 600 MG PO (21:18)
[2022-04-30] MEDS: traZODone HCL 50 MG TABLET PO (22:30)
[2022-05-01 06:00] VITALS: BP 130/75; PULSE 101; RESP 18; TEMP 36.6; O2SAT 98
[2022-05-01] MEDS: Ziprasidone 60 MG CAPSULE PO (08:31)
[2022-05-01] MEDS: clonazePAM 0.5 MG TABLET PO ×2 (08:31→19:48)
[2022-05-01] MEDS: Lithium Carbonate 300 MG TABLET PO (08:32)
[2022-05-01] MEDS: Multivitamin TABLET 1 TAB PO (08:33)
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
[2022-05-01] MEDS: chlorproMAZINE HCl 25 MG TABLET 50 MG PO (13:50)
[2022-05-01] MEDS: diphenhydrAMINE HCL 25 MG TABLET 50 MG PO (13:50)
[2022-05-01] MEDS: OLANZapine 5 MG TABLET PO (15:04)
[2022-05-01] MEDS: Ziprasidone 80 MG CAPSULE PO (16:49)
[2022-05-01 17:38] VITALS: BP 123/81; PULSE 104; RESP 15; TEMP 36.4; O2SAT 98
[2022-05-01] MEDS: Lithium Carbonate ER 450 MG TABLET.ER 900 MG PO (19:48)
[2022-05-02 06:00] VITALS: BP 108/69; PULSE 80; RESP 16; TEMP 36.2; O2SAT 98
[2022-05-02] MEDS: Multivitamin TABLET 1 TAB PO (08:42)
[2022-05-02] MEDS: Lithium Carbonate 300 MG TABLET PO (08:43)
[2022-05-02] MEDS: Ziprasidone 80 MG CAPSULE PO ×2 (08:43→17:47)
[2022-05-02] MEDS: clonazePAM 0.5 MG TABLET PO ×2 (08:43→21:21)
[2022-05-02] MEDS: OLANZapine 5 MG TABLET PO (11:46)
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
[2022-05-02 17:18] VITALS: BP 118/75; PULSE 95; RESP 16; TEMP 37.1; O2SAT 99
[2022-05-02] MEDS: Lithium Carbonate ER 450 MG TABLET.ER 900 MG PO (21:21)
[2022-05-02] MEDS: diphenhydrAMINE HCL 25 MG TABLET 50 MG PO (21:21)
[2022-05-02] MEDS: traZODone HCL 50 MG TABLET PO (23:16)
[2022-05-03] MEDS: diphenhydrAMINE HCL 25 MG TABLET 50 MG PO ×2 (03:58→23:54)
[2022-05-03 06:00] VITALS: BP 111/65; PULSE 85; TEMP 36.4; O2SAT 98
[2022-05-03] MEDS: Multivitamin TABLET 1 TAB PO (08:47)
[2022-05-03] MEDS: Lithium Carbonate 300 MG TABLET PO (08:47)
[2022-05-03] MEDS: clonazePAM 0.5 MG TABLET PO ×2 (08:47→20:58)
[2022-05-03] MEDS: Ziprasidone 80 MG CAPSULE PO ×2 (08:47→17:27)
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
[2022-05-03] MEDS: chlorproMAZINE HCl 25 MG TABLET 50 MG PO (14:29)
[2022-05-03] MEDS: Acetaminophen 325 MG TABLET 650 MG PO (15:21)
[2022-05-03] MEDS: Lithium Carbonate ER 450 MG TABLET.ER 900 MG PO (20:58)
[2022-05-03 21:00] VITALS: BP 132/82; PULSE 94; TEMP 35.9; O2SAT 99
[2022-05-03] MEDS: traZODone HCL 50 MG TABLET PO (21:43)
[2022-05-04 07:01] VITALS: BP 115/67; PULSE 93; RESP 16; TEMP 36.1; O2SAT 98
[2022-05-04] MEDS: clonazePAM 0.5 MG TABLET PO (08:50)
[2022-05-04] MEDS: Ziprasidone 80 MG CAPSULE PO (08:50)
[2022-05-04] MEDS: Lithium Carbonate 300 MG TABLET PO (08:50)
[2022-05-04] MEDS: Multivitamin TABLET 1 TAB PO (08:51)
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
== END 2022-05-04 16:15 | disposition home or self-care (01) | DRG 753 ==
LOC: HO.ED 18:04 → HO.PM5 04-19 04:58
PROVIDERS: Clinical Nurse Specialist Psychiatric/Mental Health, Adult; Nurse Practitioner Family; Admitting Provider Psychiatry & Neurology Psychiatry; Emergency Provider Internal Medicine; Visit Provider Psychiatry & Neurology Psychiatry
DX: F31.2 Bipolar disorder, current episode manic severe with psychotic features (principal); F17.290 Nicotine dependence, other tobacco product, uncomplicated; F43.12 Post-traumatic stress disorder, chronic; Z71.6 Tobacco abuse counseling; Z20.822 Contact with and (suspected) exposure to COVID-19; Z79.899 Other long term (current) drug therapy
CPT/HCPCS: 36415; 80048; 80051; 80053; 80061; 80178; 80307; 81003; 82077; 82565; 82607; 82746; 83735; 84439; 84443; 84520; 85025; 87635; 93005; 99285; Q0163

== ENCOUNTER 2022-05-08 11:35 | Outpatient (REF) | payer MEDICAID, SELFPAY ==
[2022-05-08 12:49] LABS: Lithium 0.38 mmol/L (0.60-1.20)
[2022-05-08 12:59] LABS: Blood Urea Nitrogen 13 mg/dL (9-16); Estimated Glomerular Filt Rate > 60
[2022-05-08 13:20] LABS: TSH reflex Free T4 2.06 uIU/mL (0.32-4.0)
== END 2022-05-08 11:36 | disposition home or self-care (01) ==
LOC: HO.LAB 11:35
PROVIDERS: Visit Provider Psychiatry & Neurology Psychiatry
DX: Z51.81 Encounter for therapeutic drug level monitoring (principal); Z79.899 Other long term (current) drug therapy
CPT/HCPCS: 36415; 80178; 82565; 84443; 84520

== ENCOUNTER 2022-05-09 15:14 | Outpatient (REF) | payer MEDICAID, SELFPAY ==
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
== END 2022-05-09 15:15 | disposition home or self-care (01) ==
LOC: HO.XRAY 15:14
PROVIDERS: Visit Provider Psychiatry & Neurology Neurology
DX: S06.0X9A Concussion with loss of consciousness of unspecified duration, initial encounter (principal)
CPT/HCPCS: 70260

== ENCOUNTER 2022-06-09 07:59 | Emergency (ER) | payer MEDICAID, SELFPAY ==
[2022-06-09 08:53] VITALS: BP 102/63; PULSE 71; RESP 17; TEMP 36.7; O2SAT 98; BMI 18.8
[2022-06-09 09:19] LABS: MANUAL DIFF FLAG NO
[2022-06-09] MEDS: 0.9 % Sodium Chloride 1,000 ML 999 ML IVCONT (09:19)
[2022-06-09 09:23] LABS: Appearance Urine Clear; Color Urine Colorless; Glucose Urine UA Negative (Negative); Leukocyte Esterase Urine Negative (Negative); Nitrite Urine Negative (Negative); PH 7.5 (5.0-8.0); Specific Gravity - Urine <= 1.005 (1.005-1.025); Urine Blood Negative (Negative); Urine Ketones Negative (Negative); Urine Protein Negative (Neg-Trace)
[2022-06-09 09:28] LABS: Basophils Percent Auto 0.4 % (0-2); Eosinophils Percent Auto 0.6 % (0-4); Hematocrit 39.1 % (42.0-52.0); Hemoglobin 12.7 g/dl (14.0-18.0); Imm Gran Abs Auto 0.02 X10*3/uL (0.00-0.03); Imm Gran Pct Auto 0.3 % (0.0-0.4); Lymphocytes Absolute Auto 1.2 X10*3/uL (1.2-4.9); Lymphocytes Percent Auto 17.7 % (20-40); Mean Corpuscular HGB Conc 32.5 g/dl (31.0-36.0); Mean Corpuscular Hemoglobin 29.7 pg (27.0-33.0); Mean Corpuscular Volume 91.4 fL (80.0-98.0); Mean Platelet Volume 9.9 fL (9.4-12.4); Monocytes Absolute Auto 0.5 X10*3/uL (0.1-1.2); Monocytes Percent Auto 6.6 % (2-11); Neutrophils Absolute Auto 5.2 x10*3/uL (2.0-8.3); Neutrophils Percent Auto 74.4 % (45-73); Platelet Count 327 X10*3/uL (160-400); Red Blood Count 4.28 X10*6/uL (4.60-5.80); Red Cell Distribution Width 12.3 % (11.0-16.0)
--- NOTE | 2022-06-09 09:28 | ED_ITS ---
HPI - Abdominal Pain General Chief Complaint: Abdominal Pain Stated Complaint: abd pain Time Seen by Provider: 06/09/22 08:48 Source: patient, family and old records reviewed Mode of arrival: ambulatory Limitations: no limitations History of Present Illness HPI narrative: 22-year-old male with history of bipolar disorder, history of chauncey with psychotic features, PTSD, presents to the ER for evaluation of middle abdominal pain for the last 6 weeks. He also reports intermittent nausea, diarrhea and vomiting for the last couple of days. He has been drinking alcohol, last drink a six-pack last night. He threw up last night as well. His mom instructed him not to take his lithium because he was drinking. Mom is worried about his alcohol consumption and taking his psychiatric medications at the same time. MD elicited complaint: abdominal pain Pertinent past history: none Onset (ago): week(s) (6) Pain Consistency: intermittent Location: diffuse Severity: mild Quality: cramping Radiation: none Migration to: no migration Exacerbating factors: eating and other (Alcohol) Relieving factors: nothing Context: history of similar episodes Associated symptoms: nausea, vomiting and diarrhea Related Data Previous Rx's Medication Instructions Recorded chlorpromazine 50 mg tablet 50 mg PO TID PRN anxiety 30 days 05/04/22 #60 tabs clonazepam 0.5 mg tablet 0.5 mg PO DAILY 5 days #5 tabs 05/04/22 diphenhydramine HCl 50 mg capsule 50 mg PO BID PRN anxiety 30 days 05/04/22 #30 caps lithium carbonate 300 mg tablet 300 mg PO BID 30 days #60 tabs 05/04/22 lithium carbonate 600 mg capsule 600 mg PO BEDTIME 30 days #30 caps 05/04/22 ziprasidone HCl 80 mg capsule 80 mg PO BIDWM 30 days #60 caps 05/04/22 ondansetron 4 mg disintegrating 4 mg PO Q8H PRN nausea and 06/09/22 tablet vomiting #10 tabs pantoprazole 40 mg tablet,delayed 40 mg PO DAILY #14 tabs 06/09/22 release (Protonix) Allergies Allergy/AdvReac Type Severity Reaction Status Date / Time No Known Allergies Allergy Verified 02/22/22 16:29 Review of Systems Review of Systems Constitutional: No Fever, No Chills ENT/Mouth: No sore throat, No Rhinorrhea, No Swallowing Difficulty Eyes: No Eye Pain, No Swelling, No Redness Cardiovascular: No Chest Pain, No SOB, No Orthopnea, No Edema Respiratory: No Cough, No Sputum, No Wheezing, No dyspnea Gastrointestinal: + Nausea, + Vomiting, No Diarrhea, + abdominal Pain, No Hematochezia, No Melena Genitourinary: No Dysuria, No Urinary Frequency, No Hematuria Musculoskeletal: No joint pain, No Myalgias Skin: No Skin Lesions, No rash Neuro: No Weakness, No Numbness, No Dizziness, No Headache Psych: + Anxiety/Panic, No Depression, No SI, No HI Heme/Lymph: No Bruising, No Lymphadenopathy Endocrine: No Polyuria, No Polydipsia [facility] Past Medical History Medical History (Updated 06/09/22 @ 11:06 by CALEB Marie) Bipolar disorder, current episode manic severe with psychotic features Social History Social History Household Members: Family Housing: House Do you presently have visiting nurse or other home services: No Alcohol intake: never Patient Tobacco Use Status: Never used Tobacco Tobacco use type: Smokeless Tobacco e-Cigarette/Vaping Use: Currently Using Second Hand Smoke Exposure: No Substance Use Type: Marijuana Advance Directives: No Advance Directives Information Provided: No service: No Sexual orientation: Did not discuss Physical Exam ED Vital Signs: Vital Signs - 24 hr 06/09/22 08:53 Temperature 98.1 F Pulse Rate 71 Respiratory Rate 17 Blood Pressure 102/63 Pulse Oximetry 98 Oxygen Delivery Method Room Air BMI result Body Mass Index 18.8 Appearance: Alert. Oriented X3. No acute distress. Eyes: Pupils equal, round and reactive to light. ENT: Pharynx normal. Neck: Normal inspection. Neck supple. CVS: Normal heart rate and rhythm. Pulses normal. Respiratory: No respiratory distress. Breath sounds normal. Abdomen: Soft and nontender. +BS x4 Skin: Skin warm and dry. Normal skin color. Normal skin turgor. No rashes. Extremities: No lower extremity edema. Neuro/psych: Oriented X 3. No motor deficit. No sensory deficit. Conversant, normal thought process. No hallucinations Course Course Course Narrative: 22-year-old male with a history of bipolar disorder, PTSD presenting with intermittent abdominal pain and vomiting. His exam is benign and he appears well. He wants to go home. Spoke with his mother at length who is concerned about his alcohol intake in combination with his psychiatric medications. He did not take his lithium last night. Will check lab workup, lithium level. Will hold off on CT scan given he is nontender at this time. Reevaluation(s) Reevaluation #1: Lab workup was unremarkable. He is tolerating p.o.. [place] level slightly low, which it has been in the past. He does not meet inpatient psychiatric criteria at this time, he is stable for discharge home with plan to follow up with his outpatient psychiatrist. Will start him on a PPI for probable alcoholic gastritis. No evidence of upper GI bleeding. Patient counseled on the importance of abstaining from alcohol, he declined need for detox. Stable for DC home with his mom. MDM - Abdominal Pain Lab Data Result diagrams: 06/09/22 09:14 06/09/22 09:14 Labs: Lab Results 06/09/22 06/09/22 06/09/22 Range/Units 09:04 09:07 09:14 WBC 7.0 (4.8-10.8) X10*3/uL RBC 4.28 L (4.60-5.80) X10*6/uL Hgb 12.7 L (14.0-18.0) g/dl Hct 39.1 L (42.0-52.0) % MCV 91.4 (80.0-98.0) fL MCH 29.7 (27.0-33.0) pg MCHC 32.5 (31.0-36.0) g/dl RDW 12.3 (11.0-16.0) % Plt Count 327 (160-400) X10*3/uL MPV 9.9 (9.4-12.4) fL Immature Gran % (Auto) 0.3 (0.0-0.4) % Neut % (Auto) 74.4 H (45-73) % Lymph % (Auto) 17.7 L (20-40) % [place] % (Auto) 6.6 (2-11) % Eos % (Auto) 0.6 (0-4) % Baso % (Auto) 0.4 (0-2) % Lymph # (Auto) 1.2 (1.2-4.9) X10*3/uL [place] # (Auto) 0.5 (0.1-1.2) X10*3/uL Eos # (Auto) 0.0 (0.0-0.4) X10*3/uL Baso # (Auto) 0.0 (0.0-0.2) X10*3/uL Abs Immat Gran (auto) 0.02 (0.00-0.03) X10*3/uL Absolute Neuts (auto) 5.2 (2.0-8.3) x10*3/uL Absolute Nucleated RBC 0.000 (0.0-0.012) X10*3/uL Nucleated RBC % (auto) 0.0 (0.0-0.2) /100WBC Sodium (135-145) mmol/L Potassium (3.3-5.1) mmol/L Chloride (96-108) mmol/L Carbon Dioxide (22-29) mmol/L Anion Gap (12-20) BUN (9-16) mg/dL Creatinine (0.5-1.4) mg/dL Estim Creat Clear Calc Estimated GFR Random Glucose (60-115) mg/dL Calcium (8.4-10.2) mg/dL Magnesium (1.6-2.6) mg/dL Total Bilirubin (0.0-1.0) mg/dL Direct Bilirubin (0.0-0.5) mg/dL AST (5-37) U/L ALT (0-40) U/L Alkaline Phosphatase (39-117) U/L Total Protein (6.5-8.0) g/dL Albumin (3.5-5.0) g/dL Lipase (8-78) U/L Urine Color Colorless Urine Appearance Clear Urine pH 7.5 (5.0-8.0) Ur Specific [place] <= 1.005 (1.005-1.025) Urine Protein Negative (Neg-Trace) mg/dL Urine Glucose (UA) Negative (Negative) mg/dL Urine Ketones Negative (Negative) mg/dL Urine Blood Negative (Negative) Urine Nitrite Negative (Negative) Ur Leukocyte Esterase Negative (Negative) [place] (0.60-1.20) mmol/L Ethyl Alcohol mg/dL COVID-19 (CATHERINE) Negative (Negative) COVID-19 Clin Com See Note 06/09/22 06/09/2222 Range/Units 09:14 10:02 10:02 WBC (4.8-10.8) X10*3/uL RBC (4.60-5.80) X10*6/uL Hgb (14.0-18.0) g/dl Hct (42.0-52.0) % MCV (80.0-98.0) fL MCH (27.0-33.0) pg MCHC (31.0-36.0) g/dl RDW (11.0-16.0) % Plt Count (160-400) X10*3/uL MPV (9.4-12.4) fL Immature Gran % (Auto) (0.0-0.4) % Neut % (Auto) (45-73) % Lymph % (Auto) (20-40) % [place] % (Auto) (2-11) % Eos % (Auto) (0-4) % Baso % (Auto) (0-2) % Lymph # (Auto) (1.2-4.9) X10*3/uL [place] # (Auto) (0.1-1.2) X10*3/uL Eos # (Auto) (0.0-0.4) X10*3/uL Baso # (Auto) (0.0-0.2) X10*3/uL Abs Immat Gran (auto) (0.00-0.03) X10*3/uL Absolute Neuts (auto) (2.0-8.3) x10*3/uL Absolute Nucleated RBC (0.0-0.012) X10*3/uL Nucleated RBC % (auto) (0.0-0.2) /100WBC Sodium 139 (135-145) mmol/L Potassium 4.2 (3.3-5.1) mmol/L Chloride 102 (96-108) mmol/L Carbon Dioxide 28 (22-29) mmol/L Anion Gap 13 (12-20) BUN 6 L D (9-16) mg/dL Creatinine 0.89 (0.5-1.4) mg/dL Estim Creat Clear Calc 110.8 Estimated GFR > 60 Random Glucose 88 (60-115) mg/dL Calcium 10.2 D (8.4-10.2) mg/dL Magnesium 2.4 (1.6-2.6) mg/dL Total Bilirubin 0.6 (0.0-1.0) mg/dL Direct Bilirubin 0.2 (0.0-0.5) mg/dL AST 21 (5-37) U/L ALT 13 (0-40) U/L Alkaline Phosphatase 35 L (39-117) U/L Total Protein 7.3 (6.5-8.0) g/dL Albumin 5.0 (3.5-5.0) g/dL Lipase 17 (8-78) U/L Urine Color Urine Appearance Urine pH (5.0-8.0) Ur Specific [place] (1.005-1.025) Urine Protein (Neg-Trace) mg/dL Urine Glucose (UA) (Negative) mg/dL Urine Ketones (Negative) mg/dL Urine Blood (Negative) Urine Nitrite (Negative) Ur Leukocyte Esterase (Negative) [place] 0.36 L (0.60-1.20) mmol/L Ethyl Alcohol < 10 mg/dL COVID-19 (CATHERINE) (Negative) COVID-19 Clin Com Discharge Plan Discharge Clinical Impression: Alcoholic gastritis Patient Disposition: Home, Self-Care Instructions: Gastritis (ED), Diet for Stomach Ulcers and Gastritis (ED), Abuse of Alcohol (ED) Additional Instructions: Your lab workup today was unremarkable. Your pain is most likely due to gastritis which is and irritation and inflammation of your stomach lining. Start taking the prescribed medication as directed for this. Stick to a bland diet. Avoid foods high in acid, avoid alcohol and NSAID medications like Aleve, Motrin, Advil or ibuprofen. STOP DRINKING ALCOHOL. Follow up with your doctor as needed. Follow up with GI doctor if you symptoms persist despite dietary modifications and medication. Recommend following up with Dr. Miranda as well. Take all of you medications as prescribed. If you develop new or worsening symptoms call 911 or come back to the ER for further evaluation. Prescriptions: New pantoprazole [Protonix] 40 mg tablet,delayed release (DR/EC) 40 mg PO DAILY Qty: 14 0RF ondansetron 4 mg tablet,disintegrating 4 mg PO Q8H PRN (Reason: nausea and vomiting) Qty: 10 0RF No Action diphenhydramine HCl 50 mg capsule 50 mg PO BID PRN (Reason: anxiety) 30 Days Qty: 30 1RF chlorpromazine 50 mg tablet 50 mg PO TID PRN (Reason: anxiety) 30 Days Qty: 60 1RF clonazepam 0.5 mg Tablet 0.5 mg PO DAILY 5 Days Qty: 5 0RF lithium carbonate 300 mg Tablet 300 mg PO BID 30 Days Qty: 60 1RF Rx Instructions: take 1 capsule in morning and 1 capsule at bedtime (with the 600mg cap) lithium carbonate 600 mg capsule 600 mg PO BEDTIME 30 Days Qty: 30 1RF Rx Instructions: take with one 300mg capsule ziprasidone HCl 80 mg Capsule 80 mg PO BIDWM 30 Days Qty: 60 1RF Rx Instructions: take 1 WITH breakfast and 1 WITH dinner Referrals: Albino Miranda MD [Physician] - (bipolar) Jeremy Oro [Physician] - (alcoholic gastritis) Interventions: ED Discharge Assessment Last Done: 06/09/22 11:19 Discharge Date/Time: 06/09/22 11:20
[2022-06-09 09:42] LABS: COVID-19 Test Negative (Negative); IDNOW Serial# 16C4AD1C
[2022-06-09 09:50] LABS: Alanine Aminotransferase 13 U/L (0-40); Alkaline Phosphatase 35 U/L (39-117); Anion Gap 13 (12-20); Aspartate Amino Transferase 21 U/L (5-37); Bilirubin Direct 0.2 mg/dL (0.0-0.5); Bilirubin Total 0.6 mg/dL (0.0-1.0); Blood Urea Nitrogen 6 mg/dL (9-16); Calcium 10.2 mg/dL (8.4-10.2); Carbon Dioxide 28 mmol/L (22-29); Chloride 102 mmol/L (96-108); Creatinine Clr Calc Pharmacy 110.8; Estimated Glomerular Filt Rate > 60; Glucose Random 88 mg/dL (60-115); Lipase 17 U/L (8-78); Magnesium 2.4 mg/dL (1.6-2.6); Potassium 4.2 mmol/L (3.3-5.1); Sodium 139 mmol/L (135-145); Total Protein 7.3 g/dL (6.5-8.0)
[2022-06-09 10:15] LABS: Lithium 0.36 mmol/L (0.60-1.20)
[2022-06-09 10:28] LABS: Ethanol < 10 mg/dL
== END 2022-06-09 11:20 | disposition home or self-care (01) ==
PROVIDERS: Physician Assistant; Emergency Provider Student in an Organized Health Care Education/Training Program
DX: K29.20 Alcoholic gastritis without bleeding (principal); R10.9 Unspecified abdominal pain; Z20.822 Contact with and (suspected) exposure to COVID-19; Z79.899 Other long term (current) drug therapy
CPT/HCPCS: 36415; 80048; 80076; 80178; 81003; 82077; 83690; 83735; 85025; 87635; 96360; 99284

== ENCOUNTER 2022-10-27 21:38 | Inpatient (IN) | payer MEDICAID, OTHER, SELFPAY ==
[2022-10-27 21:42] VITALS: BP 127/85; PULSE 80; RESP 16; TEMP 36.9; O2SAT 99; BMI 18.8
[2022-10-27 22:08] LABS: MANUAL DIFF FLAG NO
[2022-10-27 22:08] LABS: Amphetamine Screen Urine Not Detected (Not Detect); Barbiturates, Urine Not Detected (Not Detect); Benzodiazepines Screen Urine Not Detected (Not Detect); Cannabinoid Screen Urine POSITIVE (Not Detect); Cocaine Screen Urine Not Detected (Not Detect); Fentanyl, urine Not Detected (Not Detect); Opiate Screen Urine Not Detected (Not Detect); Phencyclidine Screen Urine Not Detected (Not Detect)
[2022-10-27 22:09] LABS: Basophils Percent Auto 0.4 % (0-2); Eosinophils Absolute Auto 0.1 X10*3/uL (0.0-0.4); Hematocrit 39.8 % (42.0-52.0); Hemoglobin 13.2 g/dl (14.0-18.0); Imm Gran Abs Auto 0.02 X10*3/uL (0.00-0.03); Imm Gran Pct Auto 0.4 % (0.0-0.4); Lymphocytes Percent Auto 41.6 % (20-40); Mean Corpuscular HGB Conc 33.2 g/dl (31.0-36.0); Mean Corpuscular Hemoglobin 29.7 pg (27.0-33.0); Mean Corpuscular Volume 89.4 fL (80.0-98.0); Mean Platelet Volume 9.8 fL (9.4-12.4); Monocytes Absolute Auto 0.4 X10*3/uL (0.1-1.2); Monocytes Percent Auto 8.6 % (2-11); Neutrophils Absolute Auto 2.3 x10*3/uL (2.0-8.3); Platelet Count 269 X10*3/uL (160-400); Red Blood Count 4.45 X10*6/uL (4.60-5.80); Red Cell Distribution Width 12.2 % (11.0-16.0); White Blood Count 4.9 X10*3/uL (4.8-10.8)
[2022-10-27 22:23] LABS: Lithium < 0.10 mmol/L (0.60-1.20)
[2022-10-27 22:38] LABS: Alanine Aminotransferase 14 U/L (0-40); Albumin Level 4.6 g/dL (3.5-5.0); Alkaline Phosphatase 47 U/L (39-117); Aspartate Amino Transferase 18 U/L (5-37); Bilirubin Total 0.3 mg/dL (0.0-1.0); Blood Urea Nitrogen 9 mg/dL (9-16); Calcium 9.6 mg/dL (8.4-10.2); Carbon Dioxide 23 mmol/L (22-29); Creatinine Clr Calc Pharmacy 129.8; Estimated Glomerular Filt Rate > 60; Ethanol 15 mg/dL; Glucose Random 87 mg/dL (60-115); Total Protein 6.7 g/dL (6.5-8.0)
[2022-10-27 22:40] LABS: COVID-19 Test Negative (Negative); IDNOW Serial# 6674DD1D
[2022-10-27 22:46] LABS: Chloride 107 mmol/L (96-108); Potassium 3.8 mmol/L (3.3-5.1); Sodium 140 mmol/L (135-145)
[2022-10-27 22:52] LABS: Anion Gap 14 (12-20)
--- NOTE | 2022-10-28 01:24 | ED_ITS ---
HPI - Psych General Chief Complaint: Psychiatric Symptoms Stated Complaint: SEC 12, AMS per EMS Time Seen by Provider: 10/27/22 21:55 Source: patient and EMS Mode of arrival: EMS Limitations: no limitations History of Present Illness HPI Narrative: Patient comes to the emergency room complaining that he is delusional, hallucinations. Patient states that he is aware that he is not doing well and is also aware that he is seeing things and having believes that do not make sense. Patient has been off his medications for approximately 3 or more months. Patient denies suicidal or homicidal ideation. Patient called himself 911, escorted by police department. Patient admits being not compliant with his medication. Related Data Home Medications Medication Instructions Recorded Confirmed ziprasidone HCl 80 mg capsule 80 mg PO BID 10/27/22 10/27/22 Previous Rx's Medication Instructions Recorded lithium carbonate 300 mg tablet 300 mg PO BID 30 days #60 tabs 05/04/22 lithium carbonate 600 mg capsule 600 mg PO BEDTIME 30 days #30 caps 05/04/22 Allergies Allergy/AdvReac Type Severity Reaction Status Date / Time No Known Allergies Allergy Verified 02/22/22 16:29 Review of Systems Review of Systems: Constitutional : No Weight loss, No Fever, No Chills, No Night Sweats, No Fatigue, No Malaise ENT/Mouth : No Hearing loss, No Ear Pain, No Nasal Congestion, No Sinus Pain, No Hoarseness, No sore throat, No Rhinorrhea, No Swallowing Difficulty Eyes: No Eye Pain, No Swelling, No Redness, No Foreign Body, No Discharge, No Vision Changes Cardiovascular : No Chest Pain, No SOB, No Dyspnea on Exertion, No Orthopnea, No Edema, No Palpitations Respiratory : No Cough, No Sputum, No Wheezing, No Smoke Exposure, No Dyspnea Gastrointestinal : No Nausea, No Vomiting, No Diarrhea, No Constipation, No abdominal Pain, No Hematochezia, No Melena Genitourinary : no irregular bleeding, No Dysuria, No Urinary Frequency, No Hematuria, No Urinary Incontinence, No Urgency, No Flank Pain, No Urinary Flow Changes, No Hesitancy Musculoskeletal : No joint pain, No Myalgias, No Joint Swelling Skin : No Skin Lesions, No rash Neuro : No Weakness, No Numbness, No Paresthesias, No Loss of Consciousness, No Dizziness, No Headache Psych : No Anxiety/Panic, No Depression, denies SI or HI, complaining of delusions and hallucinations Heme/Lymph: No Bruising, No Bleeding,No Lymphadenopathy Endocrine : No Polyuria, No Polydipsia, No Temperature Intolerance [facility] Past Medical History Medical History Bipolar disorder, current episode manic severe with psychotic features Social History Social History Household Members: Family Housing: House Do you presently have visiting nurse or other home services: No Alcohol intake: never Patient Tobacco Use Status: Never used Tobacco Tobacco use type: Smokeless Tobacco e-Cigarette/Vaping Use: Currently Using Second Hand Smoke Exposure: No Substance Use Type: Marijuana Advance Directives: No Advance Directives Information Provided: No service: No Sexual orientation: Did not discuss Physical Exam Vital Signs: Vital Signs: Last Vital Signs Temp 98.5 F 10/27/22 21:42 Pulse 80 10/27/22 21:42 Resp 16 10/27/22 21:42 BP 127/85 10/27/22 21:42 Pulse Ox 99 10/27/22 21:42 O2 Del Method 10/27/22 21:42 BMI result Body Mass Index 18.8 Const: Other: Appearance: Alert. Oriented X3. No acute distress. Eyes: Pupils equal, round and reactive to light. ENT: Pharynx normal. Neck: Normal inspection. Neck supple. No lymph nodes noted. No crepitus CVS: Normal heart rate and rhythm. Pulses normal. Normal S1 and S2 Respiratory: No respiratory distress. Breath sounds normal. No Wheezing. No rales Abdomen: Soft and nontender. No rigidity. No distention. Skin: Skin warm and dry. Normal skin color. Normal skin turgor. Extremities: No lower extremity edema. No Lacerations. No Rash Neuro: Oriented X 3. No motor deficit. No sensory deficit. Moving all extremities. No slurred speech. CN 2 through 12 grossly intact Psych: calm, cooperative, normal affect, coherent Course Course Course Narrative: Care team consult pending. I was informed by the patient's nurse that patient is pacing, getting naked, trying to walk around the butt naked. Patient is willing to take p.o. medications. Patient states that he has not been able to sleep in 15 days. Patient agreeable to take Haldol, Benadryl, Ativan p.o. Sign-out given to Dr. Wallace Medical Decision Making Differential Diagnosis Differential Diagnoses: The differential diagnosis associated with the presentation includes (Delusional, substance abuse, schizophrenia, multiple psychiatric disorders) Admission/Observation Consideration of admission/observation: Escalation of care including admission/observation considered (We will observe the patient until the morning, care team consult pending) Lab Data MDM Lab Attestation statement: I reviewed the patient's lab results. 10/27/22 22:03 10/27/22 22:03 Labs: Lab Results 10/27/22 10/27/22 10/27/22 Range/Units 21:52 21:52 22:03 WBC (4.8-10.8) X10*3/uL RBC (4.60-5.80) X10*6/uL Hgb (14.0-18.0) g/dl Hct (42.0-52.0) % MCV (80.0-98.0) fL MCH (27.0-33.0) pg MCHC (31.0-36.0) g/dl RDW (11.0-16.0) % Plt Count (160-400) X10*3/uL MPV (9.4-12.4) fL Immature Gran % (Auto) (0.0-0.4) % Neut % (Auto) (45-73) % Lymph % (Auto) (20-40) % [place] % (Auto) (2-11) % Eos % (Auto) (0-4) % Baso % (Auto) (0-2) % Lymph # (Auto) (1.2-4.9) X10*3/uL [place] # (Auto) (0.1-1.2) X10*3/uL Eos # (Auto) (0.0-0.4) X10*3/uL Baso # (Auto) (0.0-0.2) X10*3/uL Abs Immat Gran (auto) (0.00-0.03) X10*3/uL Absolute Neuts (auto) (2.0-8.3) x10*3/uL Absolute Nucleated RBC (0.0-0.012) X10*3/uL Nucleated RBC % (auto) (0.0-0.2) /100WBC Sodium 140 (135-145) mmol/L Potassium 3.8 (3.3-5.1) mmol/L Chloride 107 (96-108) mmol/L Carbon Dioxide 23 (22-29) mmol/L Anion Gap 14 (12-20) BUN 9 (9-16) mg/dL Creatinine 0.76 (0.5-1.4) mg/dL Estim Creat Clear Calc 129.8 Estimated GFR > 60 Random Glucose 87 (60-115) mg/dL Calcium 9.6 (8.4-10.2) mg/dL Total Bilirubin 0.3 (0.0-1.0) mg/dL AST 18 (5-37) U/L ALT 14 (0-40) U/L Alkaline Phosphatase 47 (39-117) U/L Total Protein 6.7 (6.5-8.0) g/dL Albumin 4.6 (3.5-5.0) g/dL Urine Opiates Screen Not Detected (Not Detect) Urine Fentanyl Screen Not Detected (Not Detect) Ur Barbiturates Screen Not Detected (Not Detect) Ur Phencyclidine Scrn Not Detected (Not Detect) Ur Amphetamines Screen Not Detected (Not Detect) U Benzodiazepines Scrn Not Detected (Not Detect) [place] (0.60-1.20) mmol/L Urine Cocaine Screen Not Detected (Not Detect) U Marijuana (THC) Screen POSITIVE H (Not Detect) Ethyl Alcohol 15 mg/dL COVID-19 (CATHERINE) Negative (Negative) COVID-19 Clin Com See Note 10/27/22 10/27/22 Range/Units 22:03 22:03 WBC 4.9 (4.8-10.8) X10*3/uL RBC 4.45 L (4.60-5.80) X10*6/uL Hgb 13.2 L (14.0-18.0) g/dl Hct 39.8 L (42.0-52.0) % MCV 89.4 (80.0-98.0) fL MCH 29.7 (27.0-33.0) pg MCHC 33.2 (31.0-36.0) g/dl RDW 12.2 (11.0-16.0) % Plt Count 269 (160-400) X10*3/uL MPV 9.8 (9.4-12.4) fL Immature Gran % (Auto) 0.4 (0.0-0.4) % Neut % (Auto) 47.0 (45-73) % Lymph % (Auto) 41.6 H (20-40) % [place] % (Auto) 8.6 (2-11) % Eos % (Auto) 2.0 (0-4) % Baso % (Auto) 0.4 (0-2) % Lymph # (Auto) 2.0 (1.2-4.9) X10*3/uL [place] # (Auto) 0.4 (0.1-1.2) X10*3/uL Eos # (Auto) 0.1 (0.0-0.4) X10*3/uL Baso # (Auto) 0.0 (0.0-0.2) X10*3/uL Abs Immat Gran (auto) 0.02 (0.00-0.03) X10*3/uL Absolute Neuts (auto) 2.3 (2.0-8.3) x10*3/uL Absolute Nucleated RBC 0.000 (0.0-0.012) X10*3/uL Nucleated RBC % (auto) 0.0 (0.0-0.2) /100WBC Sodium (135-145) mmol/L Potassium (3.3-5.1) mmol/L Chloride (96-108) mmol/L Carbon Dioxide (22-29) mmol/L Anion Gap (12-20) BUN (9-16) mg/dL Creatinine (0.5-1.4) mg/dL Estim Creat Clear Calc Estimated GFR Random Glucose (60-115) mg/dL Calcium (8.4-10.2) mg/dL Total Bilirubin (0.0-1.0) mg/dL AST (5-37) U/L ALT (0-40) U/L Alkaline Phosphatase (39-117) U/L Total Protein (6.5-8.0) g/dL Albumin (3.5-5.0) g/dL Urine Opiates Screen (Not Detect) Urine Fentanyl Screen (Not Detect) Ur Barbiturates Screen (Not Detect) Ur Phencyclidine Scrn (Not Detect) Ur Amphetamines Screen (Not Detect) U Benzodiazepines Scrn (Not Detect) [place] < 0.10 L (0.60-1.20) mmol/L Urine Cocaine Screen (Not Detect) U Marijuana (THC) Screen (Not Detect) Ethyl Alcohol mg/dL COVID-19 (CATHERINE) (Negative) COVID-19 Clin Com Discharge Plan Discharge Clinical Impression: Delusions Patient Disposition: Still a Patient Prescriptions: No Action lithium carbonate 300 mg Tablet 300 mg PO BID 30 Days Qty: 60 1RF Rx Instructions: take 1 capsule in morning and 1 capsule at bedtime (with the 600mg cap) lithium carbonate 600 mg capsule 600 mg PO BEDTIME 30 Days Qty: 30 1RF Rx Instructions: take with one 300mg capsule ziprasidone HCl 80 mg capsule 80 mg PO BID Rx Instructions: take 1 WITH breakfast and 1 WITH dinner
[2022-10-28] MEDS: diphenhydrAMINE HCL 25 MG CAPSULE 50 MG PO (01:48)
[2022-10-28] MEDS: HaloperidoL 5 MG TABLET PO (01:48)
[2022-10-28] MEDS: LORazepam 1 MG TABLET 2 MG PO (01:48)
[2022-10-28 04:04] VITALS: BP 125/82; PULSE 79; RESP 16; TEMP 37.1; O2SAT 99
--- NOTE | 2022-10-28 06:29 | PC.NURSE ---
Patient has been off his medication for months, thought content paranoid delusional, hyper-sexual at time disrobing in his room, self dialoguing, provider notified/ordered Ativan 2 mg PO, Haldol 5 mg po, and Benadryl 50 mg PO administered at 0148 with + effect, patient slept intermittently, no distress observed/reported, disposition per care team is section 12 inpatient bed search, will continue to monitor.
--- NOTE | 2022-10-28 08:02 | PC.NURSE ---
Pt calm and cooperative at this time, requesting shower, set up for shower by staff. No complaints at this time, NAD.
[2022-10-28 08:51] VITALS: BP 121/71; PULSE 74; RESP 16; TEMP 36.8; O2SAT 100
[2022-10-28] MEDS: Lithium Carbonate 300 MG CAPSULE PO ×2 (09:09→19:39)
--- NOTE | 2022-10-28 09:18 | PC.NURSE ---
Pt informed he will be going to [facility] today, pt agreeable to this plan at this time.
[2022-10-28] MEDS: Ziprasidone 80 MG CAPSULE PO ×2 (09:28→19:39)
--- NOTE | 2022-10-28 09:45 | PC.NURSE ---
Pt medicated as charted, CV signed and on chart.
--- NOTE | 2022-10-28 10:11 | ECG_ITS ---
Test Reason : MED CLEARANCE Blood Pressure : / mmHG Vent. Rate : 062 BPM Atrial Rate : 062 BPM P-R Int : 192 ms QRS Dur : 084 ms QT Int : 390 ms P-R-T Axes : -23 072 052 degrees QTc Int : 395 ms Sinus rhythm with marked sinus arrhythmia Otherwise normal ECG When compared with ECG of 28-APR-2022 09:57, No significant change was found Referred By: Bautista Parekh Electronically Signed By:ZOHREH SHABAZZ
--- NOTE | 2022-10-28 15:33 | PC.ADMIT ---
22 y/o male admitted from [facility] psychiatric POD. He has been non compliant with his medications at home. As a result he has been hallucinating and has been delusional. Pt. realizes taht he is not at his baseline and is requesting help in getting back on his medications so he can stabilize. He was fully cooperative with the admimssion process though somewhat sleepy. Legal signatures deferred.
[2022-10-28] MEDS: clonazePAM 0.5 MG TABLET PO ×2 (16:50→19:39)
[2022-10-28 18:00] VITALS: BP 130/78; PULSE 82; RESP 16; TEMP 36.6; O2SAT 99
[2022-10-28] MEDS: traZODone HCL 50 MG TABLET PO (19:39)
[2022-10-28] MEDS: Lithium Carbonate 300 MG CAPSULE 600 MG PO (19:39)
[2022-10-29 06:00] VITALS: BP 118/81; PULSE 120; RESP 14; TEMP 36.7; O2SAT 97
[2022-10-29 08:10] LABS: Estimated Average Glucose 94 mg/dL; Hemoglobin A1C 120.0421 umol/L; Hemoglobin A1c % 4.9 %
[2022-10-29 08:18] LABS: Cholesterol 160 mg/dL; HDL Cholesterol 68 mg/dL; LDL Cholesterol Calculated 79 mg/dl; Triglycerides 69 mg/dL
[2022-10-29] MEDS: Multivitamin TABLET 1 TAB PO (08:46)
[2022-10-29] MEDS: Lithium Carbonate 300 MG CAPSULE PO ×2 (08:46→20:32)
[2022-10-29] MEDS: clonazePAM 0.5 MG TABLET PO ×2 (08:46→20:34)
[2022-10-29] MEDS: Ziprasidone 80 MG CAPSULE PO (08:47)
[2022-10-29] MEDS: Folic Acid 1 MG TABLET PO (08:47)
[2022-10-29] MEDS: Thiamine HCL 100 MG TABLET PO (08:47)
--- NOTE | 2022-10-29 11:04 | P.HPPS_ITS ---
HPI Date of Service: 10/29/22 Chief Complaint: chauncey Sources of Information: patient interviewed, chart reviewed and crisis/core team assessment reviewed HPI Subjective Notes: Mendoza Warning and Conditional Voluntary Narrative: Patient is a 22-year-old male with history of bipolar disorder type 1, alcohol abuse/dependence, PtSD, discharged from 05/04/2022, who Self presents for paranoid ideations that he is being followed by people who want to harm him in the face of having gone off his medication this past summer and relapsing with alcohol. Patient was restarted on medications in the ED however when he 1st presented it is recorded that patient was pacing, getting naked, trying to walk around the butt naked...Patient states that he has not been able to sleep in 15 days. ?Patient is calm and cooperative on approach. He says he stopped his medications about a month after discharge because did not want them to get in the way of drinking alcohol. Photo Mask Inspector inquired further and he says I like to drink a lot of alcohol and that the amount he intakes would interfere with medications. He then went on to say he does not like taking medications and does not want to take them. However on further discussion he agreed that off me dications, he feels scared and anxious that people are coming after him to harm him but since taking medications now this anxiety has resolved; to this and he agrees to get back on his medications but would like them to be at a lower dose. Patient denies any SI or HI. He says he was having auditory hallucinations but not since coming to the emergency room and getting back on medication. To this medical technical writer he denied and did not express any other paranoid ideations, however to staff he talked about UFO's. Patient denies alcohol withdrawal symptoms Patient had purging dystonic reaction which resolved with Benadryl; started on Cogentin Past Psychiatric History: Psychiatrically hospitalized January 2022 at [facility] Possibly psychiatric hospitalization february 2022 Some traumatic events in childhood relating to living with his father who is a combination of bipolar and antisocial. Patient has had several years in his 20's of trouble holding down a job with what seems to be relational conflicts with either peers or the boss. Some mild low level scientologist preoccupation over the past 3 years in early but mother says nothing out of the ordinary and was only in December 2021 that his obsessive thinking and delusional ideas intensified and patient had manic symptoms. Med trials: Risperdal plus Depakote: No effect per patient (discharged on these 2 meds January 2022) Zyprexa: short trial; not sure effect Medical Evaluation Reviewed: Yes [facility] Medical History (Updated 10/28/22 @ 01:29 by Luna Marcum MD) Alcohol abuse Bipolar disorder, current episode manic severe with psychotic features Family History: Father: bipolar/antisocial Social History: Did not graduate high school and only completed the 9th grade. He says he does did not fit in. 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, staying at a friend's house Trauma History: Childhood trauma from living with his father Diagnostics Vital Signs (24Hr): Vital Signs - 24 hr 10/28/22 18:00 10/29/22 06:00 Temperature 98 F 98.1 F Pulse Rate 82 120 H Respiratory Rate 16 14 Blood Pressure 130/78 118/81 Pulse Oximetry 99 97 Oxygen Delivery Method Room Air Room Air BMI result Body Mass Index 1.8 Labs 10/27/22 22:03 10/27/22 22:03 Labs: Laboratory Results - last 48 hr 10/27/22 10/27/22 10/27/22 21:52 21:52 22:03 WBC RBC Hgb Hct MCV MCH MCHC RDW Plt Count MPV Immature Gran % (Auto) Neut % (Auto) Lymph % (Auto) Hendry % (Auto) Eos % (Auto) Baso % (Auto) Lymph # (Auto) Hendry # (Auto) Eos # (Auto) Baso # (Auto) Abs Immat Gran (auto) Absolute Neuts (auto) Absolute Nucleated RBC Nucleated RBC % (auto) Sodium 140 Potassium 3.8 Chloride 107 Carbon Dioxide 23 Anion Gap 14 BUN 9 Creatinine 0.76 Estim Creat Clear Calc 129.8 Estimated GFR > 60 Random Glucose 87 Estimat Average Glucose Hemoglobin A1c % Calcium 9.6 Total Bilirubin 0.3 AST 18 ALT 14 Alkaline Phosphatase 47 Total Protein 6.7 Albumin 4.6 Triglycerides Cholesterol LDL Cholesterol, Calc HDL Cholesterol Urine Opiates Screen Not Detected Urine Fentanyl Screen Not Detected Ur Barbiturates Screen Not Detected Ur Phencyclidine Scrn Not Detected Ur Amphetamines Screen Not Detected U Benzodiazepines Scrn Not Detected Hildebran Urine Cocaine Screen Not Detected U Marijuana (THC) Screen POSITIVE H Ethyl Alcohol 15 COVID-19 (CATHERINE) Negative COVID-19 Clin Com See Note 10/27/22 10/27/22 10/29/22 22:03 22:03 07:49 WBC 4.9 RBC 4.45 L Hgb 13.2 L Hct 39.8 L MCV 89.4 MCH 29.7 MCHC 33.2 RDW 12.2 Plt Count 269 MPV 9.8 Immature Gran % (Auto) 0.4 Neut % (Auto) 47.0 Lymph % (Auto) 41.6 H Hendry % (Auto) 8.6 Eos % (Auto) 2.0 Baso % (Auto) 0.4 Lymph # (Auto) 2.0 Hendry # (Auto) 0.4 Eos # (Auto) 0.1 Baso # (Auto) 0.0 Abs Immat Gran (auto) 0.02 Absolute Neuts (auto) 2.3 Absolute Nucleated RBC 0.000 Nucleated RBC % (auto) 0.0 Sodium Potassium Chloride Carbon Dioxide Anion Gap BUN Creatinine Estim Creat Clear Calc Estimated GFR Random Glucose Estimat Average Glucose 94 Hemoglobin A1c % 4.9 Calcium Total Bilirubin AST ALT Alkaline Phosphatase Total Protein Albumin Triglycerides Cholesterol LDL Cholesterol, Calc HDL Cholesterol Urine Opiates Screen Urine Fentanyl Screen Ur Barbiturates Screen Ur Phencyclidine Scrn Ur Amphetamines Screen U Benzodiazepines Scrn Hildebran < 0.10 L Urine Cocaine Screen U Marijuana (THC) Screen Ethyl Alcohol COVID-19 (CATHERINE) COVID-19 Clin Com 10/29/22 07:49 WBC RBC Hgb Hct MCV MCH MCHC RDW Plt Count MPV Immature Gran % (Auto) Neut % (Auto) Lymph % (Auto) Hendry % (Auto) Eos % (Auto) Baso % (Auto) Lymph # (Auto) Hendry # (Auto) Eos # (Auto) Baso # (Auto) Abs Immat Gran (auto) Absolute Neuts (auto) Absolute Nucleated RBC Nucleated RBC % (auto) Sodium Potassium Chloride Carbon Dioxide Anion Gap BUN Creatinine Estim Creat Clear Calc Estimated GFR Random Glucose Estimat Average Glucose Hemoglobin A1c % Calcium Total Bilirubin AST ALT Alkaline Phosphatase Total Protein Albumin Triglycerides 69 Cholesterol 160 LDL Cholesterol, Calc 79 HDL Cholesterol 68 Urine Opiates Screen Urine Fentanyl Screen Ur Barbiturates Screen Ur Phencyclidine Scrn Ur Amphetamines Screen U Benzodiazepines Scrn Hildebran Urine Cocaine Screen U Marijuana (THC) Screen Ethyl Alcohol COVID-19 (CATHERINE) COVID-19 Clin Com Meds/Allergies Meds Home Medications Medication Instructions Recorded Confirmed Type ziprasidone HCl 80 mg capsule 80 mg PO BID 10/27/22 10/27/22 History Allergies Allergies Allergy/AdvReac Type Severity Reaction Status Date / Time No Known Allergies Allergy Verified 02/22/22 16:29 Mental Status Exam Mental Status Exam Narrative: Pt is alert and oriented; behavior is cooperative, though also guarded; dressed in casual attire with long, unkempt hair but adequate hygiene; mood is described as ok and affect constricted, anxious; eye contact appropriate; Speech is normal rate, volume and prosody and not pressured; no psychomotor agitation/retardation present; thought process is goal directed; Thought content is on dealing with delusional thoughts, tx; otherwise pertinent to relevant topics; no grandiose ideas expressed; denies any SI/HI. Denies AVH however seems internally preoccupied at times. Patients insight and judgment are impaired Assessment & Plan Assessment & Plan (1) Bipolar disorder, current episode manic severe with psychotic features: Status: Acute Code(s): F31.2 - Bipolar disorder, current episode manic severe with psychotic features (2) Chronic post-traumatic stress disorder (PTSD): Status: Acute Code(s): F43.12 - Post-traumatic stress disorder, chronic (3) Alcohol abuse: Status: Acute Code(s): F10.10 - Alcohol abuse, uncomplicated Plan Patient is a 22-year-old male with history of bipolar disorder type 1, alcohol abuse/dependence, PTSD discharged from 05/04/2022, who Self presents for paranoid ideations that he is being followed by people who want to harm him in the face of having gone off his medication this past summer and relapsing with alcohol. -patient has history of severe manic episodes with significant psychotic features and extensive delusional beliefs that render him unable to function. Patient also has PTSD and seems to frequently looked alcohol as a coping strategy. On medication symptoms significantly decrease but it has never been clear whether patient has insight Plan: CV Q 15 minute checks CIWA Restart Geodon but will lowered to 40 mg b.i.d. (normally 80 mg) at patient's request Restart lithium. Will try to make it all 1 time dose Will check lithium and associated lab work Start Cogentin 0.5 mg b.i.d.; not sure if dystonic reaction was from Haldol received in the ED or from Geodon or just combination; might make it a p.r.n.. -reviewed ED note; reviewed medical technical writer's notes from past admission Patient educated on: diagnosis, medication risk/benefits and substance abuse Informed Consent: understands, does not understand and further education needed Reason for continued inpatient stay Substantial Risk for: inability to function and rapid decompensation Statement Statement: I have reviewed the history and physical and performed a pertinent examination on my patient. No changes have occurred unless specified. If the History and Physical was not performed prior to admission, the Hospitalist's service will be consulted for completing the admission physical. Time Spent With Patient Time: Total time managing care of this patient today ____ minutes.
[2022-10-29] MEDS: diphenhydrAMINE HCL 25 MG CAPSULE 50 MG PO (13:25)
[2022-10-29] MEDS: Benztropine Mesylate 0.5 MG TABLET PO ×2 (15:56→20:32)
[2022-10-29 16:00] VITALS: BP 115/72; PULSE 111; TEMP 36.2
[2022-10-29] MEDS: chlorproMAZINE HCl 25 MG TABLET 50 MG PO (16:11)
[2022-10-29] MEDS: Ziprasidone 40 MG CAPSULE PO (20:33)
[2022-10-29] MEDS: Lithium Carbonate 300 MG CAPSULE 600 MG PO (20:33)
[2022-10-30 06:00] VITALS: BP 131/67; PULSE 82; RESP 14; TEMP 36.6; O2SAT 100
[2022-10-30] MEDS: Benztropine Mesylate 0.5 MG TABLET PO ×2 (07:59→21:36)
[2022-10-30] MEDS: Folic Acid 1 MG TABLET PO (07:59)
[2022-10-30] MEDS: Multivitamin TABLET 1 TAB PO (07:59)
[2022-10-30] MEDS: Lithium Carbonate 300 MG CAPSULE PO ×2 (07:59→21:36)
[2022-10-30] MEDS: Thiamine HCL 100 MG TABLET PO (07:59)
[2022-10-30] MEDS: clonazePAM 0.5 MG TABLET PO ×2 (07:59→21:36)
[2022-10-30] MEDS: Ziprasidone 40 MG CAPSULE PO ×2 (07:59→21:36)
--- NOTE | 2022-10-30 10:29 | P.PNPSI_ITS ---
Subjective Subjective Date of Service: 10/30/22 Reason For Visit: chauncey Interim History: late entry note for patient seen on 10/30/22 Patient walking around making the sign of the cross to people who passed by.; talking to staff about UFO's; walking rose internally preoccupied. Patient odd ly overly polite with literary writer, bowing with head down saying yes sir/no sir. He says think you very much for the medications and that he is feeling more clear minded and is no longer or feeling worried. Difficult to engage with further Mental Status Exam Mental Status Exam Narrative: Pt is alert and oriented; behavior is cooperative, but odd and guarded; dressed in casual attire with long, unkempt hair, marginal hygiene; mood is described as better yet affect constricted, anxious; eye contact appropriate; Speech is normal rate, volume and prosody and not pressured; no psychomotor agitation/retardation present; thought process is goal directed; Thought content is with delusional thoughts; otherwise pertinent to relevant topics when asked; denies any SI/HI. Denies AVH however is internally preoccupied at times. Patients insight and judgment are impaired Diagnostics Vital Signs (24Hr): Vital Signs - 24 hr 10/30/22 19:30 10/31/22 08:30 Temperature 98.0 F 99.3 F Pulse Rate 104 H 83 Respiratory Rate 16 Blood Pressure 121/78 129/86 Pulse Oximetry 99 98 Oxygen Delivery Method Room Air Room Air BMI result Body Mass Index 1.8 Labs 10/27/22 22:03 10/27/22 22:03 Medications Medications Current Medications Acetaminophen (Acetaminophen 325 Mg Tablet) 650 mg PO Q6H PRN PRN Reason: Headache/Pain Mild Scale (1-3) Al Hydroxide/Mg Hydroxide (Magnesium Hydrox/Alum Hydrox 30 Ml Oral.Susp) 30 ml PO Q6H PRN PRN Reason: Heartburn/Nausea Benztropine Mesylate (Benztropine Mesylate 0.5 Mg Tablet) 0.5 mg PO BID [facility] Last Admin: 10/31/22 09:20 Dose: 0.5 mg Benztropine Mesylate (Benztropine Mesylate 0.5 Mg Tablet) 0.5 mg PO TID PRN PRN Reason: Extrapyramidal Effects Chlorpromazine HCl (Chlorpromazine Hcl 25 Mg Tablet) 50 mg PO Q4H PRN PRN Reason: anxiety/agitation Last Admin: 10/29/22 16:11 Dose: 50 mg Clonazepam (Clonazepam 0.5 Mg Tablet) 0.5 mg PO BID [facility] Last Admin: 10/31/22 09:15 Dose: 0.5 mg Folic Acid (Folic Acid 1 Mg Tablet) 1 mg PO DAILY [facility] Last Admin: 10/31/22 09:16 Dose: 1 mg Driftwood Carbonate (Driftwood Carbonate 300 Mg Capsule) 300 mg PO BID [facility] Last Admin: 10/31/22 09:16 Dose: 300 mg Driftwood Carbonate (Driftwood Carbonate 300 Mg Capsule) 600 mg PO BEDTIME [facility] Last Admin: 10/30/22 21:36 Dose: 600 mg Magnesium Hydroxide (Milk Of Magnesia 30 Ml Oral.Susp) 30 ml PO DAILY PRN PRN Reason: Constipation Multivitamins/Vitamin C (Multivitamin Tablet) 1 tab PO DAILY [facility] Last Admin: 10/31/22 09:16 Dose: 1 tab Nicotine Polacrilex (Nicotine Polacrilex 2 Mg Gum) 4 mg BUCCAL Q2H PRN PRN Reason: Nicotine Cravings Thiamine HCl (Thiamine Hcl 100 Mg Tablet) 100 mg PO DAILY [facility] Last Admin: 10/31/22 09:21 Dose: 100 mg Trazodone HCl (Trazodone Hcl 50 Mg Tablet) 50 mg PO BEDTIME PRN PRN Reason: Insomnia Last Admin: 10/28/22 19:39 Dose: 50 mg Allergies Allergies Allergy/AdvReac Type Severity Reaction Status Date / Time No Known Allergies Allergy Verified 02/22/22 16:29 Assessment & Plan Assessment & Plan (1) Bipolar disorder, current episode manic severe with psychotic features: Status: Acute Code(s): F31.2 - Bipolar disorder, current episode manic severe with psychotic features (2) Chronic post-traumatic stress disorder (PTSD): Status: Acute Code(s): F43.12 - Post-traumatic stress disorder, chronic (3) Alcohol abuse: Status: Acute Code(s): F10.10 - Alcohol abuse, uncomplicated Plan Patient is a 22-year-old male with history of bipolar disorder type 1, alcohol abuse/dependence, PTSD discharged from 05/04/2022, who Self presents for paranoid ideations that he is being followed by people who want to harm him in the face of having gone off his medication this past summer and relapsing with alcohol. In the ED patient disrobing, disorganized; received Haldol for p.r.n. received Haldol as a p.r.n. -patient has history of severe manic episodes with significant psychotic feat ures and extensive delusional beliefs that render him unable to function. Patient also has PTSD and seems to frequently looked alcohol as a coping strategy. On medication symptoms significantly decrease but it has never been clear whether patient has insight 10/30 patient remains with odd behavior; he is guarded and does not reveal much; remains internally preoccupied Plan: CV Q 15 minute checks CIWA Restarted Geodon but at lower dose of 40 mg b.i.d. (normally 80 mg) at patient's request Restarted lithium. Will try to make it all 1 time dose Will check lithium and associated lab work Start Cogentin 0.5 mg b.i.d.; not sure if dystonic reaction was from Haldol received in the ED or from Geodon or just combination; might make it a p.r.n.. -reviewed ED note; reviewed literary writer's notes from past admission Patient educated on: diagnosis Informed Consent: does not understand Reason for contiued inpatient stay Substantial Risk for: inability to function Time Spent With Patient Time: Total time managing care of this patient today ____ minutes.
[2022-10-30 19:30] VITALS: BP 121/78; PULSE 104; TEMP 36.7; O2SAT 99
[2022-10-30] MEDS: Lithium Carbonate 300 MG CAPSULE 600 MG PO (21:36)
--- NOTE | 2022-10-30 23:28 | PC.NURSE ---
Patient was very labile this shift. At times he was polite and cooperative and at other times he was yelling and demanding a security office to come speak with him. The patient is convinced that another patient wants to kill him and he does not feel safe. His CIWA assessments were low.
[2022-10-31 08:30] VITALS: BP 129/86; PULSE 83; RESP 16; TEMP 37.4; O2SAT 98
[2022-10-31] MEDS: Ziprasidone 40 MG CAPSULE PO (09:15)
[2022-10-31] MEDS: clonazePAM 0.5 MG TABLET PO ×2 (09:15→19:46)
[2022-10-31] MEDS: Folic Acid 1 MG TABLET PO (09:16)
[2022-10-31] MEDS: Multivitamin TABLET 1 TAB PO (09:16)
[2022-10-31] MEDS: Lithium Carbonate 300 MG CAPSULE PO ×2 (09:16→19:46)
[2022-10-31] MEDS: Benztropine Mesylate 0.5 MG TABLET PO ×2 (09:20→19:47)
[2022-10-31] MEDS: Thiamine HCL 100 MG TABLET PO (09:21)
--- NOTE | 2022-10-31 17:51 | HO.PSYCHPN ---
Subjective Subjective Date of Service: 10/31/22 Reason For Visit: chauncey Interim History: Late entry note for patient seen 10/31 Patient says Francesco Merlos has sent people to harm him in the hospital. Patient is visibly upset and points out 3 peers whom he says have banded together to intimidate him and were sent by Francesco Merlos. Patient makes references to staff who he believes are also partially involved in conspiracy. Patient says that these 3 peers were making stabbing gestures at him and that 1 peer said he was going to kill him. Tractor Crane Engineer discussed case with staff who was present during these interactions which occurred last night and staff denies that any threats at all over made or that these 3 peers hardly even interacted with patient though it is accurate that 1 of them was yelling in a silly way last night outside patient's room. Patient showed sign writer hand a shrine he made for protection and explained the rolled up his pants he placed on a sock, with some art work next to it and another item; he then demonstrated to sign writer hand how he prayed to it. Patient said he is staying in his room for safety. He was relieved to know that staff will be attentive to him to help no he safe. Regarding alcohol consumption, patient says he has been drinking only a little the past few weeks since he has no money, maybe a beer a day if even that. Discussed case with team who talked with patient's mother who reports patient been acting bizarrely at home, screaming out the street, wants took off his pants in the middle of the street yelling Mental Status Exam Mental Status Exam Narrative: Pt is alert and oriented; behavior is cooperative, guarded; dressed in casual attire with long, unkempt hair, marginal hygiene; mood is described as not safe and affect constricted, anxious; eye contact appropriate; Speech is normal rate, volume and prosody and not pressured; no psychomotor agitation/retardation present; thought process is goal directed; Thought content is with paranoid delusional thoughts; otherwise pertinent to relevant topics when asked; denies any SI/HI. Denies AVH however is internally preoccupied at times. Patients insight and judgment are impaired Diagnostics Vital Signs (24Hr): Vital Signs - 24 hr 10/31/22 18:00 11/01/22 08:45 Temperature 97.6 F 97.3 F Pulse Rate 69 93 Respiratory Rate 16 18 Blood Pressure 128/69 125/82 Pulse Oximetry 98 99 Oxygen Delivery Method Room Air Room Air BMI result Body Mass Index 1.8 Labs 10/27/22 22:03 10/27/22 22:03 Medications Medications Current Medications Acetaminophen (Acetaminophen 325 Mg Tablet) 650 mg PO Q6H PRN PRN Reason: Headache/Pain Mild Scale (1-3) Last Admin: 11/01/22 12:15 Dose: 650 mg Al Hydroxide/Mg Hydroxide (Magnesium Hydrox/Alum Hydrox 30 Ml Oral.Susp) 30 ml PO Q6H PRN PRN Reason: Heartburn/Nausea Benztropine Mesylate (Benztropine Mesylate 0.5 Mg Tablet) 0.5 mg PO BID [facility] Last Admin: 11/01/22 09:02 Dose: 0.5 mg Benztropine Mesylate (Benztropine Mesylate 0.5 Mg Tablet) 0.5 mg PO TID PRN PRN Reason: Extrapyramidal Effects Chlorpromazine HCl (Chlorpromazine Hcl 25 Mg Tablet) 50 mg PO Q4H PRN PRN Reason: anxiety/agitation Last Admin: 11/01/22 10:24 Dose: 50 mg Clonazepam (Clonazepam 0.5 Mg Tablet) 0.5 mg PO BID [facility] Last Admin: 11/01/22 08:58 Dose: 0.5 mg Folic Acid (Folic Acid 1 Mg Tablet) 1 mg PO DAILY [facility] Last Admin: 11/01/22 08:58 Dose: 1 mg Morrill Carbonate (Morrill Carbonate 300 Mg Capsule) 300 mg PO BID [facility] Last Admin: 11/01/22 08:58 Dose: 300 mg Morrill Carbonate (Morrill Carbonate 300 Mg Capsule) 600 mg PO BEDTIME [facility] Last Admin: 10/31/22 19:44 Dose: 600 mg Magnesium Hydroxide (Milk Of Magnesia 30 Ml Oral.Susp) 30 ml PO DAILY PRN PRN Reason: Constipation Multivitamins/Vitamin C (Multivitamin Tablet) 1 tab PO DAILY [facility] Last Admin: 11/01/22 08:58 Dose: 1 tab Nicotine Polacrilex (Nicotine Polacrilex 2 Mg Gum) 4 mg BUCCAL Q2H PRN PRN Reason: Nicotine Cravings Last Admin: 11/01/22 16:54 Dose: 4 mg Thiamine HCl (Thiamine Hcl 100 Mg Tablet) 100 mg PO DAILY [facility] Last Admin: 11/01/22 08:58 Dose: 100 mg Trazodone HCl (Trazodone Hcl 50 Mg Tablet) 50 mg PO BEDTIME PRN PRN Reason: Insomnia Last Admin: 10/31/22 23:54 Dose: 50 mg Ziprasidone (Ziprasidone 80 Mg Capsule) 80 mg PO BID [facility] Last Admin: 11/01/22 08:58 Dose: 80 mg Allergies Allergies Allergy/AdvReac Type Severity Reaction Status Date / Time No Known Allergies Allergy Verified 02/22/22 16:29 Assessment & Plan Assessment & Plan (1) Schizoaffective disorder, bipolar type: Status: Acute Code(s): F25.0 - Schizoaffective disorder, bipolar type (2) Chronic post-traumatic stress disorder (PTSD): Status: Acute Code(s): F43.12 - Post-traumatic stress disorder, chronic (3) Alcohol abuse: Status: Acute Code(s): F10.10 - Alcohol abuse, uncomplicated Plan Patient is a 22-year-old male with history of bipolar disorder type 1, alcohol abuse/dependence, PTSD discharged from 05/04/2022, who Self presents for paranoid ideations that he is being followed by people who want to harm him in the face of having gone off his medication this past summer and relapsing with alcohol. In the ED patient disrobing, disorganized; received Haldol for p.r.n. received Haldol as a p.r.n. -patient has history of severe manic episodes with significant psychotic features and extensive delusional beliefs that render him unable to function. Patient also has PTSD and seems to frequently looked alcohol as a coping strategy. On medication symptoms significantly decrease but it has never been clear whether patient has insight 10/30 patient remains with odd behavior; he is guarded and does not reveal much; remains internally preoccupied 10/31 patient psychotic with paranoid delusions. Tractor Crane Engineer reassess is diagnosis and sees that patient has psychotic symptoms even when not manic and will change diagnosis to schizoaffective. Patient says it is okay for sign writer hand to adjust medications and that he will take whatever sign writer hand thinks past Plan: CV Q 15 minute checks DC CIWA; patient not scoring Increase Geodon back to previous home dose of 80 mg b.i.d. Continue lithium. Will try to make it all 1 time dose Will check lithium and associated lab work Start Cogentin 0.5 mg b.i.d.; not sure if dystonic reaction was from Haldol received in the ED or from Geodon or just combination; might make it a p.r.n.. -reviewed ED note; reviewed sign writer hand's notes from past admission Patient educated on: diagnosis and medication risk/benefits Informed Consent: does not understand Reason for contiued inpatient stay Substantial Risk for: inability to function Time Spent With Patient Time: Total time managing care of this patient today ____ minutes.
[2022-10-31 18:00] VITALS: BP 128/69; PULSE 69; RESP 16; TEMP 36.4; O2SAT 98
[2022-10-31] MEDS: traZODone HCL 50 MG TABLET PO ×2 (19:44→23:54)
[2022-10-31] MEDS: Lithium Carbonate 300 MG CAPSULE 600 MG PO (19:44)
[2022-10-31] MEDS: Ziprasidone 80 MG CAPSULE PO (19:47)
[2022-10-31] MEDS: chlorproMAZINE HCl 25 MG TABLET 50 MG PO (23:54)
[2022-11-01 08:45] VITALS: BP 125/82; PULSE 93; RESP 18; TEMP 36.3; O2SAT 99
[2022-11-01] MEDS: Lithium Carbonate 300 MG CAPSULE PO ×2 (08:58→20:59)
[2022-11-01] MEDS: Thiamine HCL 100 MG TABLET PO (08:58)
[2022-11-01] MEDS: Folic Acid 1 MG TABLET PO (08:58)
[2022-11-01] MEDS: Ziprasidone 80 MG CAPSULE PO ×2 (08:58→21:00)
[2022-11-01] MEDS: clonazePAM 0.5 MG TABLET PO ×2 (08:58→21:00)
[2022-11-01] MEDS: Multivitamin TABLET 1 TAB PO (08:58)
[2022-11-01] MEDS: Benztropine Mesylate 0.5 MG TABLET PO ×2 (09:02→20:59)
[2022-11-01] MEDS: chlorproMAZINE HCl 25 MG TABLET 50 MG PO (10:24)
[2022-11-01] MEDS: Acetaminophen 325 MG TABLET 650 MG PO (12:15)
[2022-11-01] MEDS: Nicotine Polacrilex 2 MG GUM 4 MG BUCCAL (16:54)
[2022-11-01 18:00] VITALS: BP 133/78; PULSE 108; TEMP 36.9; O2SAT 99
--- NOTE | 2022-11-01 18:02 | P.PNPSI_ITS ---
Subjective Subjective Date of Service: 11/01/22 Reason For Visit: chauncey Interim History: Patient remains anxious with paranoid delusions. He says he feels he is being hunted. He says of 4th fully on the unit as joint forces and got in his personal space in order to lead the attack on him. He saw this 4th female peer talking on the phone and says he knows she was talking about him, telling someone on the outside to hurt him. He agrees he did not actually hear her say this but knows it is true. One reason he knows it is true is because there are sit living across the street from his house who once flashed a green light at him from their house which he knows was a sign they want to kill. He later saw 1 of these people walking on the street talking on his cell phone and overheard him say let us go which patient is convinced was a call to insight violence against him. Police Shift Commander discussed medications and brought up the option of clozapine. Patient does not like weekly blood draws saying he does not know what type of clandestine testing will be done on his blood and does not want any Shady shit to go on. Patient said he is willing to retract his 3 day and stay on the unit longer; patient did so Mental Status Exam Mental Status Exam Narrative: Pt is alert and oriented; behavior is cooperative, guarded; dressed in casual attire with long, unkempt but washed hair, adequate hygiene; mood is described as anxious and affect constricted, anxious; eye contact appropriate; Speech is normal rate, volume and prosody and not pressured; no psychomotor agitation/ retardation present; thought process is goal directed; Thought content is with paranoid delusional thoughts; otherwise pertinent to relevant topics when asked; denies any SI/HI. Denies AVH however is internally preoccupied at times. Patients insight and judgment are impaired Diagnostics Vital Signs (24Hr): Vital Signs - 24 hr 11/01/22 08:45 Temperature 97.3 F Pulse Rate 93 Respiratory Rate 18 Blood Pressure 125/82 Pulse Oximetry 99 Oxygen Delivery Method Room Air BMI result Body Mass Index 1.8 Labs 10/27/22 22:03 10/27/22 22:03 Medications Medications Current Medications Acetaminophen (Acetaminophen 325 Mg Tablet) 650 mg PO Q6H PRN PRN Reason: Headache/Pain Mild Scale (1-3) Last Admin: 11/01/22 12:15 Dose: 650 mg Al Hydroxide/Mg Hydroxide (Magnesium Hydrox/Alum Hydrox 30 Ml Oral.Susp) 30 ml PO Q6H PRN PRN Reason: Heartburn/Nausea Benztropine Mesylate (Benztropine Mesylate 0.5 Mg Tablet) 0.5 mg PO BID [facility] Last Admin: 11/01/22 09:02 Dose: 0.5 mg Benztropine Mesylate (Benztropine Mesylate 0.5 Mg Tablet) 0.5 mg PO TID PRN PRN Reason: Extrapyramidal Effects Chlorpromazine HCl (Chlorpromazine Hcl 25 Mg Tablet) 50 mg PO Q4H PRN PRN Reason: anxiety/agitation Last Admin: 11/01/22 10:24 Dose: 50 mg Clonazepam (Clonazepam 0.5 Mg Tablet) 0.5 mg PO BID [facility] Last Admin: 11/01/22 08:58 Dose: 0.5 mg Folic Acid (Folic Acid 1 Mg Tablet) 1 mg PO DAILY [facility] Last Admin: 11/01/22 08:58 Dose: 1 mg [place] Carbonate ([place] Carbonate 300 Mg Capsule) 300 mg PO BID [facility] Last Admin: 11/01/22 08:58 Dose: 300 mg [place] Carbonate ([place] Carbonate 300 Mg Capsule) 600 mg PO BEDTIME [facility] Last Admin: 10/31/22 19:44 Dose: 600 mg Magnesium Hydroxide (Milk Of Magnesia 30 Ml Oral.Susp) 30 ml PO DAILY PRN PRN Reason: Constipation Multivitamins/Vitamin C (Multivitamin Tablet) 1 tab PO DAILY [facility] Last Admin: 11/01/22 08:58 Dose: 1 tab Nicotine Polacrilex (Nicotine Polacrilex 2 Mg Gum) 4 mg BUCCAL Q2H PRN PRN Reason: Nicotine Cravings Last Admin: 11/01/22 16:54 Dose: 4 mg Thiamine HCl (Thiamine Hcl 100 Mg Tablet) 100 mg PO DAILY [facility] Last Admin: 11/01/22 08:58 Dose: 100 mg Trazodone HCl (Trazodone Hcl 50 Mg Tablet) 50 mg PO BEDTIME PRN PRN Reason: Insomnia Last Admin: 10/31/22 23:54 Dose: 50 mg Ziprasidone (Ziprasidone 80 Mg Capsule) 80 mg PO BID [facility] Last Admin: 11/01/22 08:58 Dose: 80 mg Allergies Allergies Allergy/AdvReac Type Severity Reaction Status Date / Time No Known Allergies Allergy Verified 02/22/22 16:29 Assessment & Plan Assessment & Plan (1) Schizoaffective disorder, bipolar type: Status: Acute Code(s): F25.0 - Schizoaffective disorder, bipolar type (2) Chronic post-traumatic stress disorder (PTSD): Status: Acute Code(s): F43.12 - Post-traumatic stress disorder, chronic (3) Alcohol abuse: Status: Acute Code(s): F10.10 - Alcohol abuse, uncomplicated Plan Patient is a 22-year-old male with history of bipolar disorder type 1, alcohol abuse/dependence, PTSD discharged from 05/04/2022, who Self presents for paranoid ideations that he is being followed by people who want to harm him in the face of having gone off his medication this past summer and relapsing with alcohol. In the ED patient disrobing, disorganized; received Haldol for p.r.n. received Haldol as a p.r.n. -patient has history of severe manic episodes with significant psychotic features and extensive delusional beliefs that render him unable to function. Patient also has PTSD and seems to frequently looked alcohol as a coping strategy. On medication symptoms significantly decrease but it has never been clear whether patient has insight 10/30 patient remains with odd behavior; he is guarded and does not reveal much; remains internally preoccupied 10/31 patient psychotic with paranoid delusions. Police Shift Commander reassess is diagnosis and sees that patient has psychotic symptoms even when not manic and will devi ge diagnosis to schizoaffective. Patient says it is okay for board writer to adjust medications and that he will take whatever board writer thinks past 11/01 remains with severe paranoid delusions Plan: CV; retracted 3 day Q 15 minute checks DC CIWA; patient not scoring Increase Geodon back to previous home dose of 80 mg b.i.d. Continue lithium. Will try to make it all 1 time dose Will check lithium and associated lab work Start Cogentin 0.5 mg b.i.d.; not sure if dystonic reaction was from Haldol received in the ED or from Geodon or just combination; might make it a p.r.n.. -reviewed ED note; reviewed board writer's notes from past admission Patient educated on: diagnosis and medication risk/benefits Informed Consent: understands, does not understand and further education needed Reason for contiued inpatient stay Substantial Risk for: inability to function Time Spent With Patient Time: Total time managing care of this patient today ____ minutes.
--- NOTE | 2022-11-01 18:36 | PC.NURSE ---
Pt signed a 3-day up on November 07. SW, MORAIMA, and aware.
[2022-11-01] MEDS: Lithium Carbonate 300 MG CAPSULE 600 MG PO (20:59)
[2022-11-01] MEDS: traZODone HCL 50 MG TABLET PO (21:00)
--- NOTE | 2022-11-02 | ECG_ITS ---
Test Reason : Check QTC Blood Pressure : / mmHG Vent. Rate : 088 BPM Atrial Rate : 088 BPM P-R Int : 202 ms QRS Dur : 074 ms QT Int : 338 ms P-R-T Axes : 060 065 037 degrees QTc Int : 408 ms Normal sinus rhythm with sinus arrhythmia Normal ECG When compared with ECG of 28-OCT-2022 10:14, No significant change was found Referred By: Albino Miranda Electronically Signed By:Gio Juarez
[2022-11-02 07:00] VITALS: BMI 22.6
[2022-11-02 08:00] VITALS: BP 100/61; PULSE 98; RESP 16; TEMP 36.3; O2SAT 98
[2022-11-02] MEDS: Ziprasidone 80 MG CAPSULE PO ×2 (08:33→19:34)
[2022-11-02] MEDS: clonazePAM 0.5 MG TABLET PO ×2 (08:33→19:33)
[2022-11-02] MEDS: Lithium Carbonate 300 MG CAPSULE PO ×2 (08:33→19:31)
[2022-11-02] MEDS: Benztropine Mesylate 0.5 MG TABLET PO ×2 (08:33→19:33)
[2022-11-02] MEDS: Folic Acid 1 MG TABLET PO (08:33)
[2022-11-02] MEDS: Thiamine HCL 100 MG TABLET PO (08:33)
[2022-11-02 09:02] LABS: Lithium 0.48 mmol/L (0.60-1.20)
[2022-11-02 09:07] LABS: Anion Gap 9 (12-20); Blood Urea Nitrogen 10 mg/dL (9-16); Carbon Dioxide 26 mmol/L (22-29); Chloride 108 mmol/L (96-108); Creatinine Clr Calc Pharmacy 11.5; Estimated Glomerular Filt Rate > 60; Potassium 3.9 mmol/L (3.3-5.1); Sodium 139 mmol/L (135-145)
[2022-11-02 09:25] LABS: TSH reflex Free T4 1.72 uIU/mL (0.32-4.0)
[2022-11-02] MEDS: chlorproMAZINE HCl 25 MG TABLET 50 MG PO ×3 (13:52→19:32)
--- NOTE | 2022-11-02 13:58 | PC.NURSE ---
pt refused EKG this morning; provider notified
--- NOTE | 2022-11-02 16:19 | P.PNPSI_ITS ---
Subjective Subjective Date of Service: 11/02/22 Reason For Visit: chauncey Interim History: Continued psychotic symptoms. Patient remains convinced that several peers are in conspiracy to bully him. Patient place another 3 day notice saying that he really wants to go home on promises to continue taking his medications. 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 Junior Administrative Assistant overheard patient telling another peer that he was a spy and something about technology he is aware of and its relationship to a flying saucer. Also overheard telling peer about the people he perceives or bullies on the unit and to watch out for them. Mental Status Exam Mental Status Exam Narrative: Pt is alert and oriented; behavior is cooperative, guarded; dressed in casual a ttire with long, unkempt but washed hair, adequate hygiene; mood is described as ok and affect constricted, anxious; eye contact appropriate; Speech is normal rate, volume and prosody and not pressured; no psychomotor agitation/retardation present; thought process is goal directed; Thought content is with paranoid delusional thoughts; otherwise pertinent to relevant topics when asked; denies any SI/HI. Denies AVH however is internally preoccupied at times. Patients insight and judgment are impaired Diagnostics Vital Signs (24Hr): Vital Signs - 24 hr 11/01/22 18:00 11/02/22 08:00 Temperature 98.4 F 97.4 F Pulse Rate 108 H 98 Respiratory Rate 16 Blood Pressure 133/78 100/61 Pulse Oximetry 99 98 Oxygen Delivery Method Room Air Room Air BMI result Body Mass Index 22.6 Labs 10/27/22 22:03 11/02/22 08:41 Labs: Laboratory Results - last 48 hr 11/02/22 11/02/22 08:41 08:41 Sodium 139 Potassium 3.9 Chloride 108 Carbon Dioxide 26 Anion Gap 9 L BUN 10 Creatinine 0.82 Estim Creat Clear Calc 11.5 Estimated GFR > 60 TSH 1.72 Alvan 0.48 L Medications Medications Current Medications Acetaminophen (Acetaminophen 325 Mg Tablet) 650 mg PO Q6H PRN PRN Reason: Headache/Pain Mild Scale (1-3) Last Admin: 11/01/22 12:15 Dose: 650 mg Al Hydroxide/Mg Hydroxide (Magnesium Hydrox/Alum Hydrox 30 Ml Oral.Susp) 30 ml PO Q6H PRN PRN Reason: Heartburn/Nausea Benztropine Mesylate (Benztropine Mesylate 0.5 Mg Tablet) 0.5 mg PO BID [facility] Last Admin: 11/02/22 08:33 Dose: 0.5 mg Benztropine Mesylate (Benztropine Mesylate 0.5 Mg Tablet) 0.5 mg PO TID PRN PRN Reason: Extrapyramidal Effects Chlorpromazine HCl (Chlorpromazine Hcl 25 Mg Tablet) 50 mg PO Q4H PRN PRN Reason: anxiety/agitation Last Admin: 11/02/22 13:52 Dose: 50 mg Clonazepam (Clonazepam 0.5 Mg Tablet) 0.5 mg PO BID [facility] Last Admin: 11/02/22 08:33 Dose: 0.5 mg Folic Acid (Folic Acid 1 Mg Tablet) 1 mg PO DAILY [facility] Last Admin: 11/02/22 08:33 Dose: 1 mg [place] Carbonate ([place] Carbonate 300 Mg Capsule) 300 mg PO BID [facility] Last Admin: 11/02/22 08:33 Dose: 300 mg [place] Carbonate ([place] Carbonate 300 Mg Capsule) 600 mg PO BEDTIME [facility] Last Admin: 11/01/22 20:59 Dose: 600 mg Magnesium Hydroxide (Milk Of Magnesia 30 Ml Oral.Susp) 30 ml PO DAILY PRN PRN Reason: Constipation Multivitamins/Vitamin C (Multivitamin Tablet) 1 tab PO DAILY [facility] Last Admin: 11/02/22 08:36 Dose: Not Given Nicotine Polacrilex (Nicotine Polacrilex 2 Mg Gum) 4 mg BUCCAL Q2H PRN PRN Reason: Nicotine Cravings Last Admin: 11/01/22 16:54 Dose: 4 mg Thiamine HCl (Thiamine Hcl 100 Mg Tablet) 100 mg PO DAILY [facility] Last Admin: 11/02/22 08:33 Dose: 100 mg Trazodone HCl (Trazodone Hcl 50 Mg Tablet) 50 mg PO BEDTIME PRN PRN Reason: Insomnia Last Admin: 11/01/22 21:00 Dose: 50 mg Ziprasidone (Ziprasidone 80 Mg Capsule) 80 mg PO BID [facility] Last Admin: 11/02/22 08:33 Dose: 80 mg Allergies Allergies Allergy/AdvReac Type Severity Reaction Status Date / Time No Known Allergies Allergy Verified 02/22/22 16:29 Assessment & Plan Assessment & Plan (1) Schizoaffective disorder, bipolar type: Status: Acute Code(s): F25.0 - Schizoaffective disorder, bipolar type (2) Chronic post-traumatic stress disorder (PTSD): Status: Acute Code(s): F43.12 - Post-traumatic stress disorder, chronic (3) Alcohol abuse: Status: Acute Code(s): F10.10 - Alcohol abuse, uncomplicated Plan Patient is a 22-year-old male with history of bipolar disorder type 1, alcohol abuse/dependence, PTSD discharged from 05/04/2022, who Self presents for paranoid ideations that he is being followed by people who want to harm him in the face of having gone off his medication this past summer and relapsing with alcohol. In the ED patient disrobing, disorganized; received Haldol for p.r.n. received Haldol as a p.r.n. -patient has history of severe manic episodes with significant psychotic f eatures and extensive delusional beliefs that render him unable to function. Patient also has PTSD and seems to frequently looked alcohol as a coping strategy. On medication symptoms significantly decrease but it has never been clear whether patient has insight 10/30 patient remains with odd behavior; he is guarded and does not reveal much; remains internally preoccupied 10/31 patient psychotic with paranoid delusions. Junior Administrative Assistant reassess is diagnosis and sees that patient has psychotic symptoms even when not manic and will change diagnosis to schizoaffective. Patient says it is okay for personal lines underwriter to adjust medications and that he will take whatever personal lines underwriter thinks past 11/01 remains with severe paranoid delusions 11/02 patient sleeping and hypomanic; remains with intense paranoid delusions including feeling that there are peers on the unit conspiring to intimidate him; patient does agree that he seems to run into trouble when he stops taking his medications, however no insight into psychiatric illness Plan: CV; retracted 3 day Q 15 minute checks Increase Geodon back to previous home dose of 80 mg b.i.d. Continue lithium. Will try to make it all 1 time dose Will check lithium and associated lab work Start Cogentin 0.5 mg b.i.d.; not sure if dystonic reaction was from Haldol received in the ED or from Geodon or just combination; might make it a p.r.n.. -reviewed ED note; reviewed personal lines underwriter's notes from past admission Patient educated on: diagnosis and medication risk/benefits Informed Consent: does not understand Reason for contiued inpatient stay Substantial Risk for: inability to function Time Spent With Patient Time: Total time managing care of this patient today ____ minutes.
[2022-11-02 18:00] VITALS: BP 127/68; PULSE 82; RESP 16; TEMP 36.4; O2SAT 98
[2022-11-02] MEDS: Lithium Carbonate 300 MG CAPSULE 600 MG PO (19:31)
[2022-11-02] MEDS: traZODone HCL 50 MG TABLET PO ×2 (19:33→23:51)
[2022-11-02] MEDS: Nicotine Polacrilex 2 MG GUM 4 MG BUCCAL (23:51)
[2022-11-03] MEDS: chlorproMAZINE HCl 25 MG TABLET 50 MG PO ×4 (01:48→16:36)
[2022-11-03] MEDS: Acetaminophen 325 MG TABLET 650 MG PO ×2 (02:56→16:36)
[2022-11-03 07:59] VITALS: BP 128/64; PULSE 98; RESP 16; TEMP 36.4; O2SAT 98
[2022-11-03 08:23] LABS: Lithium 0.46 mmol/L (0.60-1.20)
[2022-11-03] MEDS: clonazePAM 0.5 MG TABLET PO ×2 (08:30→19:16)
[2022-11-03] MEDS: Benztropine Mesylate 0.5 MG TABLET PO ×2 (08:30→19:16)
[2022-11-03] MEDS: Thiamine HCL 100 MG TABLET PO (08:30)
[2022-11-03] MEDS: Multivitamin TABLET 1 TAB PO (08:31)
[2022-11-03] MEDS: Ziprasidone 80 MG CAPSULE PO ×2 (08:31→19:16)
[2022-11-03] MEDS: Folic Acid 1 MG TABLET PO (08:31)
[2022-11-03] MEDS: Lithium Carbonate 300 MG CAPSULE PO (08:31)
[2022-11-03 08:33] LABS: Anion Gap 11 (12-20); Blood Urea Nitrogen 11 mg/dL (9-16); Carbon Dioxide 26 mmol/L (22-29); Chloride 107 mmol/L (96-108); Creatinine Clr Calc Pharmacy 150.3; Estimated Glomerular Filt Rate > 60; Potassium 3.8 mmol/L (3.3-5.1); Sodium 140 mmol/L (135-145)
[2022-11-03 08:52] LABS: TSH reflex Free T4 2.54 uIU/mL (0.32-4.0)
--- NOTE | 2022-11-03 16:52 | HO.PSYCHPN ---
Subjective Subjective Date of Service: 11/03/22 Reason For Visit: chauncey Interim History: Patient remains with paranoid delusions and with manic behaviors. last night patient yelling and swearing into a banana he was using as a phone; also yelling that the Reji Ricans in the kitchen are messing with his food. Patient asked female staff member on a date; pt patient broke a pitcher to use it as a make shift pick for the guitar and when asked for back yelled FU to staff. This morning, Patient screaming about another female peer sexually harassing him (peer has been no where near patient); he then yelled at this female peer you know what you're doing...you're sexually harassing me... which triggered this patient who started yelling back until patient was able to be redirected. Patient told his mother who reported to social science instructor that he believes there are 9 patient's on the unit conspiring with plans to hurt him and he says he has been getting hit notes. Patient remains without any insight. Focused Factory Manager went to see patient later on in the day who was asleep; patient woke from sleep and said hello but that he is really tired and wants to continue sleeping to which service writer agreed. Mental Status Exam Mental Status Exam Narrative: Pt is alert and oriented; behavior is hypomanic, guarded. disorganized; can be cooperative; dressed in casual attire with long, unkempt but adequate hygiene; mood is described as paranoid and affect constricted, anxious; eye contact appropriate; Speech is normal rate, volume and prosody and not pressured; psychomotor agitation present; thought process is goal directed; Thought content is with paranoid, delusional thoughts; otherwise pertinent to relevant topics when asked; denies any SI/HI. Denies AVH however is internally preoccupied at times. Patients insight and judgment are impaired Diagnostics Vital Signs (24Hr): Vital Signs - 24 hr 11/02/22 18:00 11/03/22 07:59 Temperature 97.6 F 97.6 F Pulse Rate 82 98 Respiratory Rate 16 16 Blood Pressure 127/68 128/64 Pulse Oximetry 98 98 Oxygen Delivery Method Room Air Room Air BMI result Body Mass Index 22.6 Labs 10/27/22 22:03 11/03/22 07:51 Labs: Laboratory Results - last 48 hr 11/02/22 11/02/22 11/03/22 08:41 08:41 07:51 Sodium 139 140 Potassium 3.9 3.8 Chloride 108 107 Carbon Dioxide 26 26 Anion Gap 9 L 11 L BUN 10 11 Creatinine 0.82 0.79 Estim Creat Clear Calc 11.5 150.3 Estimated GFR > 60 > 60 TSH 1.72 2.54 [place] 0.48 L 11/03/22 07:51 Sodium Potassium Chloride Carbon Dioxide Anion Gap BUN Creatinine Estim Creat Clear Calc Estimated GFR TSH [place] 0.46 L Medications Medications Current Medications Acetaminophen (Acetaminophen 325 Mg Tablet) 650 mg PO Q6H PRN PRN Reason: Headache/Pain Mild Scale (1-3) Last Admin: 11/03/22 16:36 Dose: 650 mg Al Hydroxide/Mg Hydroxide (Magnesium Hydrox/Alum Hydrox 30 Ml Oral.Susp) 30 ml PO Q6H PRN PRN Reason: Heartburn/Nausea Benztropine Mesylate (Benztropine Mesylate 0.5 Mg Tablet) 0.5 mg PO BID [facility] Last Admin: 11/03/22 08:30 Dose: 0.5 mg Benztropine Mesylate (Benztropine Mesylate 0.5 Mg Tablet) 0.5 mg PO TID PRN PRN Reason: Extrapyramidal Effects Chlorpromazine HCl (Chlorpromazine Hcl 25 Mg Tablet) 50 mg PO Q4H PRN PRN Reason: anxiety/agitation Last Admin: 11/03/22 16:36 Dose: 50 mg Clonazepam (Clonazepam 0.5 Mg Tablet) 0.5 mg PO BID [facility] Last Admin: 11/03/22 08:30 Dose: 0.5 mg Folic Acid (Folic Acid 1 Mg Tablet) 1 mg PO DAILY [facility] Last Admin: 11/03/22 08:31 Dose: 1 mg [place] Carbonate ([place] Carbonate 300 Mg Capsule) 300 mg PO DAILY [facility] [place] Carbonate ([place] Carbonate 300 Mg Capsule) 1,200 mg PO BEDTIME [facility] Magnesium Hydroxide (Milk Of Magnesia 30 Ml Oral.Susp) 30 ml PO DAILY PRN PRN Reason: Constipation Multivitamins/Vitamin C (Multivitamin Tablet) 1 tab PO DAILY [facility] Last Admin: 11/03/22 08:31 Dose: 1 tab Nicotine Polacrilex (Nicotine Polacrilex 2 Mg Gum) 4 mg BUCCAL Q2H PRN PRN Reason: Nicotine Cravings Last Admin: 11/02/22 23:51 Dose: 4 mg Thiamine HCl (Thiamine Hcl 100 Mg Tablet) 100 mg PO DAILY [facility] Last Admin: 11/03/22 08:30 Dose: 100 mg Trazodone HCl (Trazodone Hcl 50 Mg Tablet) 50 mg PO BEDTIME PRN PRN Reason: Insomnia Last Admin: 11/02/22 23:51 Dose: 50 mg Ziprasidone (Ziprasidone 80 Mg Capsule) 80 mg PO BID [facility] Last Admin: 11/03/22 08:31 Dose: 80 mg Allergies Allergies Allergy/AdvReac Type Severity Reaction Status Date / Time No Known Allergies Allergy Verified 02/22/22 16:29 Assessment & Plan Assessment & Plan (1) Schizoaffective disorder, bipolar type: Status: Acute Code(s): F25.0 - Schizoaffective disorder, bipolar type (2) Chronic post-traumatic stress disorder (PTSD): Status: Acute Code(s): F43.12 - Post-traumatic stress disorder, chronic (3) Alcohol abuse: Status: Acute Code(s): F10.10 - Alcohol abuse, uncomplicated Plan Patient is a 22-year-old male with history of bipolar disorder type 1, alcohol abuse/dependence, PTSD discharged from 05/04/2022, who Self presents for paranoid ideations that he is being followed by people who want to harm him in the face of having gone off his medication this past summer and relapsing with alcohol. In the ED patient disrobing, disorganized; received Haldol for p.r.n. received Haldol as a p.r.n. -patient has history of severe manic episodes with significant psychotic features and extensive delusional beliefs that render him unable to function. Patient also has PTSD and seems to frequently looked alcohol as a coping strategy. On medication symptoms significantly decrease but it has never been clear whether patient has insight 10/30 patient remains with odd behavior; he is guarded and does not reveal much; remains internally preoccupied 10/31 patient psychotic with paranoid delusions. Focused Factory Manager reassess is diagnosis and sees that patient has psychotic symptoms even when not manic and will change diagnosis to schizoaffective. Patient says it is okay for service writer to adjust medications and that he will take whatever service writer thinks past 11/01 remains with severe paranoid delusions 11/02 patient sleeping and hypomanic; remains with intense paranoid delusions including feeling that there are peers on the unit conspiring to intimidate him; patient does agree that he seems to run into trouble when he stops taking his medications, however no insight into psychiatric illness 11/03 paranoid delusions and manic behaviors persist; patient is paranoid making accusations against multiple peers thinking there conspiring against him. Patient has no insight. Labs returned today showing subtherapeutic lithium dose so will increase. Patient put in another 3 day. However he remains paranoid and accusatory to other peers, provoking them and at this time is unsafe to return to the community Plan: 3 day Q 15 minute checks Continue Geodon 80 mg b.i.d. Continue lithium ER 300 mg daily Increase lithium ER to 1200 mg q.h.s. since level is subtherapeutic; BUN creatinine, TSH, lytes within normal limits Will recheck lithium and associated lab work Started Cogentin 0.5 mg b.i.d.; not sure if dystonic reaction was from Haldol received in the ED or from Geodon or just combination; might make it a p.r.n.. -reviewed ED note; reviewed service writer's notes from past admission Reason for contiued inpatient stay Substantial Risk for: inability to function Time Spent With Patient Time: Total time managing care of this patient today ____ minutes.
[2022-11-03 19:15] VITALS: BP 126/76; PULSE 102; RESP 16; TEMP 36.5
[2022-11-03] MEDS: traZODone HCL 50 MG TABLET PO (19:16)
[2022-11-03] MEDS: Lithium Carbonate 300 MG CAPSULE 1200 MG PO (19:17)
[2022-11-04] MEDS: chlorproMAZINE HCl 25 MG TABLET 50 MG PO ×3 (05:26→21:18)
[2022-11-04 08:10] VITALS: BP 112/58; PULSE 117; RESP 16; TEMP 36.5; O2SAT 98
[2022-11-04] MEDS: Thiamine HCL 100 MG TABLET PO (08:22)
[2022-11-04] MEDS: Ziprasidone 80 MG CAPSULE PO ×2 (08:22→21:17)
[2022-11-04] MEDS: Multivitamin TABLET 1 TAB PO (08:22)
[2022-11-04] MEDS: Benztropine Mesylate 0.5 MG TABLET PO ×2 (08:22→21:18)
[2022-11-04] MEDS: clonazePAM 0.5 MG TABLET PO ×2 (08:22→22:04)
[2022-11-04] MEDS: Folic Acid 1 MG TABLET PO (08:22)
[2022-11-04] MEDS: Lithium Carbonate 300 MG CAPSULE PO (08:23)
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
[2022-11-04 18:00] VITALS: BP 117/71; PULSE 97; RESP 18; TEMP 36.9; O2SAT 99
[2022-11-04] MEDS: Magnesium Hydrox/Alum Hydrox 30 ML ORAL.SUSP PO (18:23)
[2022-11-04] MEDS: Lithium Carbonate 300 MG CAPSULE 1200 MG PO (21:18)
[2022-11-04] MEDS: traZODone HCL 50 MG TABLET PO (21:18)
[2022-11-05] MEDS: Nicotine Polacrilex 2 MG GUM 4 MG BUCCAL ×2 (06:11→11:23)
[2022-11-05] MEDS: chlorproMAZINE HCl 25 MG TABLET 50 MG PO ×3 (06:12→21:15)
[2022-11-05] MEDS: Folic Acid 1 MG TABLET PO (08:29)
[2022-11-05] MEDS: Ziprasidone 80 MG CAPSULE PO ×2 (08:29→21:15)
[2022-11-05] MEDS: clonazePAM 0.5 MG TABLET PO ×2 (08:29→21:14)
[2022-11-05] MEDS: Lithium Carbonate 300 MG CAPSULE PO (08:29)
[2022-11-05] MEDS: Benztropine Mesylate 0.5 MG TABLET PO ×2 (08:30→21:14)
[2022-11-05] MEDS: Thiamine HCL 100 MG TABLET PO (08:30)
[2022-11-05] MEDS: Multivitamin TABLET 1 TAB PO (08:30)
[2022-11-05 09:33] VITALS: BP 117/63; PULSE 113; RESP 16; TEMP 36.8; O2SAT 98
[2022-11-05] MEDS: Magnesium Hydrox/Alum Hydrox 30 ML ORAL.SUSP PO ×2 (12:29→18:07)
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
[2022-11-05 18:00] VITALS: BP 138/79; PULSE 110; RESP 18; TEMP 36; O2SAT 98
[2022-11-05] MEDS: traZODone HCL 50 MG TABLET PO (21:15)
[2022-11-05] MEDS: Lithium Carbonate 300 MG CAPSULE 1200 MG PO (21:44)
[2022-11-06 06:00] VITALS: BP 127/68; PULSE 91; RESP 14; TEMP 36.4; O2SAT 98
[2022-11-06] MEDS: Ziprasidone 80 MG CAPSULE PO (08:37)
[2022-11-06] MEDS: Folic Acid 1 MG TABLET PO (08:37)
[2022-11-06] MEDS: Thiamine HCL 100 MG TABLET PO (08:37)
[2022-11-06] MEDS: Benztropine Mesylate 0.5 MG TABLET PO ×2 (08:37→20:06)
[2022-11-06] MEDS: Lithium Carbonate 300 MG CAPSULE PO (08:37)
[2022-11-06] MEDS: Multivitamin TABLET 1 TAB PO (08:37)
[2022-11-06] MEDS: clonazePAM 0.5 MG TABLET PO ×2 (08:37→20:06)
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
[2022-11-06] MEDS: chlorproMAZINE HCl 25 MG TABLET 50 MG PO ×2 (10:59→23:57)
[2022-11-06] MEDS: Magnesium Hydrox/Alum Hydrox 30 ML ORAL.SUSP PO ×2 (11:42→16:38)
[2022-11-06] MEDS: Nicotine Polacrilex 2 MG GUM 4 MG BUCCAL ×2 (16:01→23:04)
[2022-11-06 18:00] VITALS: BP 130/68; PULSE 94; RESP 14; TEMP 36.6; O2SAT 99
[2022-11-06] MEDS: traZODone HCL 100 MG TABLET PO (20:06)
[2022-11-07] MEDS: chlorproMAZINE HCl 25 MG TABLET 50 MG PO ×4 (03:58→14:54)
[2022-11-07] MEDS: Nicotine Polacrilex 2 MG GUM 4 MG BUCCAL (03:59)
[2022-11-07] MEDS: Acetaminophen 325 MG TABLET 650 MG PO ×2 (05:22→12:28)
[2022-11-07 08:15] VITALS: BP 131/63; PULSE 97; RESP 16; TEMP 36.8; O2SAT 98
[2022-11-07] MEDS: Benztropine Mesylate 0.5 MG TABLET PO ×2 (08:26→21:28)
[2022-11-07] MEDS: Ziprasidone 80 MG CAPSULE PO ×2 (08:26→21:28)
[2022-11-07] MEDS: clonazePAM 0.5 MG TABLET PO ×3 (08:26→21:28)
[2022-11-07] MEDS: Multivitamin TABLET 1 TAB PO (08:26)
[2022-11-07] MEDS: Lithium Carbonate 300 MG CAPSULE PO (08:26)
[2022-11-07] MEDS: Thiamine HCL 100 MG TABLET PO (08:26)
[2022-11-07] MEDS: Folic Acid 1 MG TABLET PO (08:26)
[2022-11-07 21:20] VITALS: BP 99/54; PULSE 114; TEMP 36.4; O2SAT 97
[2022-11-07] MEDS: Lithium Carbonate 300 MG CAPSULE 900 MG PO (21:28)
[2022-11-07] MEDS: traZODone HCL 100 MG TABLET PO (21:32)
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
[2022-11-08 09:21] LABS: Lithium 0.66 mmol/L (0.60-1.20)
[2022-11-08 09:27] LABS: Anion Gap 12 (12-20); Blood Urea Nitrogen 10 mg/dL (9-16); Carbon Dioxide 27 mmol/L (22-29); Chloride 104 mmol/L (96-108); Creatinine Clr Calc Pharmacy 146.5; Estimated Glomerular Filt Rate > 60; Potassium 4.4 mmol/L (3.3-5.1); Sodium 139 mmol/L (135-145)
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
[2022-11-08 10:10] VITALS: BP 126/71; PULSE 94; RESP 16; TEMP 36.8; O2SAT 100
[2022-11-08] MEDS: Ziprasidone 80 MG CAPSULE PO ×2 (10:10→20:43)
[2022-11-08] MEDS: Lithium Carbonate 300 MG CAPSULE PO (10:10)
[2022-11-08] MEDS: Thiamine HCL 100 MG TABLET PO (10:10)
[2022-11-08] MEDS: Benztropine Mesylate 0.5 MG TABLET PO ×2 (10:10→20:43)
[2022-11-08] MEDS: Folic Acid 1 MG TABLET PO (10:10)
[2022-11-08] MEDS: clonazePAM 0.5 MG TABLET PO ×2 (10:10→20:43)
[2022-11-08] MEDS: Multivitamin TABLET 1 TAB PO (10:11)
[2022-11-08] MEDS: Lithium Carbonate 300 MG CAPSULE 900 MG PO (20:43)
[2022-11-08] MEDS: traZODone HCL 100 MG TABLET PO (20:55)
[2022-11-09] MEDS: chlorproMAZINE HCl 25 MG TABLET 50 MG PO ×2 (02:55→18:44)
[2022-11-09 07:00] VITALS: BMI 22.9
[2022-11-09] MEDS: Multivitamin TABLET 1 TAB PO (09:50)
[2022-11-09] MEDS: Folic Acid 1 MG TABLET PO (09:50)
[2022-11-09] MEDS: Lithium Carbonate 300 MG CAPSULE PO (09:50)
[2022-11-09] MEDS: Thiamine HCL 100 MG TABLET PO (09:50)
[2022-11-09] MEDS: Benztropine Mesylate 0.5 MG TABLET PO ×2 (09:51→18:40)
[2022-11-09] MEDS: Ziprasidone 80 MG CAPSULE PO (09:51)
[2022-11-09] MEDS: clonazePAM 0.5 MG TABLET PO ×2 (09:51→18:41)
--- NOTE | 2022-11-09 10:10 | P.PNPSI_ITS ---
Subjective Subjective Date of Service: 11/09/22 Reason For Visit: chauncey Interim History: met w/ patient; discussed with nursing on several occasions; discussed with SW pt refused zypexa this morning and told writer technical publications it's my right to refuse medication to which writer technical publications agreed. Then patient said he wants to be med complaint and avoid court... after talking about medications he agreed to take Zyprexa. Lot's of talking about Francesco Musk, UFO's and telecommunication with aliens...Says staff is harassing him by purposely slamming door to nursing station to keep him up at night (though this was complaint earlier this week and he is now in room away from nursing station); does not accept it is accidental. Mental Status Exam Mental Status Exam Narrative: Pt is alert and oriented; behavior is manic, predominantly agitated, accusatory, guarded and disorganized; can be cooperative and calm at times; dressed in casual attire with long, unkempt, glasses, sometimes wearing a blanket as a cape; with adequate hygiene; mood is described as paranoid and affect constricted to angry; often anxious; eye contact appropriate to glaring; Speech is normal rate, volume often loud; normal prosody; not pressured; psychomotor agitation present; thought process is goal directed; Thought content is with paranoid, persecutory delusional thoughts; can be pertinent to relevant topics when asked; denies any SI/HI. Denies AVH however is internally preoccupied at times. Patients insight and judgment are impaired Diagnostics Vital Signs (24Hr): BMI result Body Mass Index 22.6 Labs 10/27/22 22:03 11/08/22 08:34 Labs: Laboratory Results - last 48 hr 11/08/22 11/08/22 08:34 08:34 Sodium 139 Potassium 4.4 Chloride 104 Carbon Dioxide 27 Anion Gap 12 BUN 10 Creatinine 0.81 Estim Creat Clear Calc 146.5 Estimated GFR > 60 [place] 0.66 Medications Medications Current Medications Acetaminophen (Acetaminophen 325 Mg Tablet) 650 mg PO Q6H PRN PRN Reason: Headache/Pain Mild Scale (1-3) Last Admin: 11/07/22 12:28 Dose: 650 mg Al Hydroxide/Mg Hydroxide (Magnesium Hydrox/Alum Hydrox 30 Ml Oral.Susp) 30 ml PO Q6H PRN PRN Reason: Heartburn/Nausea Last Admin: 11/06/22 16:38 Dose: 30 ml Benztropine Mesylate (Benztropine Mesylate 0.5 Mg Tablet) 0.5 mg PO BID [facility] Last Admin: 11/09/22 09:51 Dose: 0.5 mg Benztropine Mesylate (Benztropine Mesylate 0.5 Mg Tablet) 0.5 mg PO TID PRN PRN Reason: Extrapyramidal Effects Chlorpromazine HCl (Chlorpromazine Hcl 25 Mg Tablet) 50 mg PO Q4H PRN PRN Reason: anxiety/agitation Last Admin: 11/09/22 02:55 Dose: 50 mg Clonazepam (Clonazepam 0.5 Mg Tablet) 0.5 mg PO BID [facility] Last Admin: 11/09/22 09:51 Dose: 0.5 mg Folic Acid (Folic Acid 1 Mg Tablet) 1 mg PO DAILY [facility] Last Admin: 11/09/22 09:50 Dose: 1 mg [place] Carbonate ([place] Carbonate 300 Mg Capsule) 300 mg PO DAILY [facility] Last Admin: 11/09/22 09:50 Dose: 300 mg [place] Carbonate ([place] Carbonate 300 Mg Capsule) 900 mg PO BEDTIME [facility] Last Admin: 11/08/22 20:43 Dose: 900 mg Magnesium Hydroxide (Milk Of Magnesia 30 Ml Oral.Susp) 30 ml PO DAILY PRN PRN Reason: Constipation Multivitamins/Vitamin C (Multivitamin Tablet) 1 tab PO DAILY [facility] Last Admin: 11/09/22 09:50 Dose: 1 tab Nicotine Polacrilex (Nicotine Polacrilex 2 Mg Gum) 4 mg BUCCAL Q2H PRN PRN Reason: Nicotine Cravings Last Admin: 11/07/22 03:59 Dose: 4 mg Olanzapine (Olanzapine 10 Mg Tablet) 10 mg PO BID [facility] Thiamine HCl (Thiamine Hcl 100 Mg Tablet) 100 mg PO DAILY [facility] Last Admin: 11/09/22 09:50 Dose: 100 mg Trazodone HCl (Trazodone Hcl 100 Mg Tablet) 100 mg PO BEDTIME PRN PRN Reason: Insomnia Last Admin: 11/08/22 20:55 Dose: 100 mg Allergies Allergies Allergy/AdvReac Type Severity Reaction Status Date / Time No Known Allergies Allergy Verified 02/22/22 16:29 Assessment & Plan Assessment & Plan (1) Schizoaffective disorder, bipolar type: Status: Acute Code(s): F25.0 - Schizoaffective disorder, bipolar type (2) Chronic post-traumatic stress disorder (PTSD): Status: Acute Code(s): F43.12 - Post-traumatic stress disorder, chronic (3) Alcohol abuse: Status: Acute Code(s): F10.10 - Alcohol abuse, uncomplicated Plan Patient is a 22-year-old male with history of bipolar disorder type 1, alcohol abuse/dependence, PTSD discharged from 05/04/2022 and here for his 3rd [facility], [place], operated by [facility] admission in less than 1 year,, who Self presents for paranoid ideations that he is being followed by people who want to harm him in the face of having gone off his medication this past summer and relapsing with alcohol. In the ED patient disrobing, disorganized; received Haldol for p.r.n. received Haldol as a p.r.n. -patient has history of severe manic episodes with significant psychotic fe atures and extensive delusional beliefs that render him unable to function. Patient also has PTSD and seems to frequently looked alcohol as a coping strategy. On medication symptoms significantly decrease but it has never been clear whether patient has insight 10/30 patient remains with odd behavior; he is guarded and does not reveal much; remains internally preoccupied 10/31 patient psychotic with paranoid delusions. Dip Painter reassess is diagnosis and sees that patient has psychotic symptoms even when not manic and will change diagnosis to schizoaffective. Patient says it is okay for writer technical publications to adjust medications and that he will take whatever writer technical publications thinks past 11/01 remains with severe paranoid delusions 11/02 patient sleeping and hypomanic; remains with intense paranoid delusions including feeling that there are peers on the unit conspiring to intimidate him; patient does agree that he seems to run into trouble when he stops taking his medications, however no insight into psychiatric illness 11/03 paranoid delusions and manic behaviors persist; patient is paranoid making accusations against multiple peers thinking there conspiring against him. Patient has no insight. Labs returned today showing subtherapeutic lithium dose so will increase. Patient put in another 3 day. However he remains paranoid and accusatory to other peers, provoking them and at this time is unsafe to r eturn to the community 11/04 remains with paranoid delusions;?Discussed case with nursing; met with isha deras; reviewed vitals and tachycardic 11/05 no change; continues to have paranoid and delusional thoughts; unwanted approaches to other peers on the unit who are afraid of him due to his behaviors. Continues to insist that multiple people on the unit and in the community have plans to harm him and that he is afraid. At this time writer technical publications is concerned for his safety. [place] dose recently increased and needs time to become therapeutic. Will continue to assess. 11/06 patient remains with severe paranoid and grandiose delusions; he thinks that peers are conspiring against him and says he is afraid for his safety; remains without any insight. Says he does not want to take Geodon or lithium. Patient is accusatory and sometimes aggressively posturing towards staff and peers. Patient is at risk for inciting pre-emptive or retaliatory aggression from others he is accusing and challenging. Dip Painter and team agreed that patient is not safe for discharge to the community. Discussed with team who agree that while sometimes patients chauncey can be addressed with medication, medications have yet to significantly erode paranoid delusions; however patient is not open to medication changes at this time. 11/07 severe, paranoid persecutory delusions, just during provoking to others whom he delusionally believes are conspiring against him. Refused medications last night, though took them today. 11/08 remains with paranoid delusions, but did sleep last night. Agrees to trial of Zyprexa (will go with this med since some partial response in past and may have gotten dystonia from typical antipsychotic in ED) Plan: Petition court for involuntary commitment and medication Q 15 minute checks STARTed Zyprexa 10mg BID (and dc Geodon since has not helped resolve psychotic symptoms) Continue lithium ER 1200mg 300 mg qhs (this does was subtherapeutic but said nauseus at higher dose); BUN creatinine, TSH, lytes within normal limits Started Cogentin 0.5 mg b.i.d.; not sure if dystonic reaction was from Haldol received in the ED or from Geodon or just combination; might make it a p.r.n.. -reviewed ED note; reviewed writer technical publications's notes from past admission In the past, these meds partially stabilized manic behaviors but did not resolve delusions: -Depakote ER 250 mg in the morning and 1000 mg q.h.s. -Risperdal 4 mg Med trial Zyprexa: ?partially helpful as prn. Patient educated on: diagnosis and medication risk/benefits Informed Consent: does not understand and further education needed Reason for contiued inpatient stay Substantial Risk for: harm to self, harm to others and inability to function Time Spent With Patient Time: Total time managing care of this patient today ____ minutes.
[2022-11-09] MEDS: OLANZapine 10 MG TABLET PO ×2 (12:56→18:42)
[2022-11-09] MEDS: Magnesium Hydrox/Alum Hydrox 30 ML ORAL.SUSP PO (15:54)
[2022-11-09 18:00] VITALS: BP 118/72; PULSE 109; TEMP 36.6; O2SAT 98
[2022-11-09] MEDS: traZODone HCL 100 MG TABLET PO (18:41)
[2022-11-10] MEDS: chlorproMAZINE HCl 25 MG TABLET 50 MG PO ×2 (04:38→14:42)
[2022-11-10] MEDS: Magnesium Hydrox/Alum Hydrox 30 ML ORAL.SUSP PO ×2 (05:23→15:00)
[2022-11-10 06:00] VITALS: BP 133/83; PULSE 93; RESP 14; TEMP 36.9; O2SAT 99
[2022-11-10] MEDS: OLANZapine 10 MG TABLET PO ×2 (08:12→20:57)
[2022-11-10] MEDS: Folic Acid 1 MG TABLET PO (08:12)
[2022-11-10] MEDS: Benztropine Mesylate 0.5 MG TABLET PO ×2 (08:12→20:57)
[2022-11-10] MEDS: clonazePAM 0.5 MG TABLET PO ×2 (08:12→20:57)
[2022-11-10] MEDS: Multivitamin TABLET 1 TAB PO (08:12)
[2022-11-10] MEDS: Thiamine HCL 100 MG TABLET PO (08:12)
--- NOTE | 2022-11-10 11:47 | HO.PSYCHPN ---
Subjective Subjective Date of Service: 11/10/22 Reason For Visit: chauncey Subjective Notes: Section 7 Interim History: Pt reports sleeping better which he reports due to trazodone and people are not knocking on my door all night long telling me they will kill me. He reports he will keep his agreement, which he states he discussed with his trial attorney: 1) medication compliance, 2)avoid court, 3) ask Dr. Miranda what he hopes to see so I can be discharged. He denies SI/HI. He reports less AH. Per nursing, pt asked them to mail letters to Francesco Merlos. No behavioral concerns, taking meds as prescribed. Review of Systems Review of Systems Constitutional : No Weight loss, No Fever, No Chills, No Night Sweats, No Fatigue, No Malaise ENT/Mouth : No Hearing loss, No Ear Pain, No Nasal Congestion, No Sinus Pain, No Hoarseness, No sore throat, No Rhinorrhea, No Swallowing Difficulty Eyes: No Eye Pain, No Swelling, No Redness, No Foreign Body, No Discharge, No Vision Changes Cardiovascular : No Chest Pain, No SOB, No Dyspnea on Exertion, No Orthopnea, No Edema, No Palpitations Respiratory : No Cough, No Sputum, No Wheezing, No Smoke Exposure, No Dyspnea Gastrointestinal : No Nausea, No Vomiting, No Diarrhea, No Constipation, No abdominal Pain, No Hematochezia, No Melena Genitourinary : no irregular bleeding, No Dysuria, No Urinary Frequency, No Hematuria, No Urinary Incontinence, No Urgency, No Flank Pain, No Urinary Flow Changes, No Hesitancy Musculoskeletal : No joint pain, No Myalgias, No Joint Swelling Skin : No Skin Lesions, No rash Neuro : No Weakness, No Numbness, No Paresthesias, No Loss of Consciousness, No Dizziness, No Headache Psych : No Anxiety/Panic, No Depression, denies SI or HI, complaining of delusions and hallucinations Heme/Lymph: No Bruising, No Bleeding,No Lymphadenopathy Endocrine : No Polyuria, No Polydipsia, No Temperature Intolerance Mental Status Exam Mental Status Exam Narrative: Pt is alert and oriented; behavior is cooperative and pleasant; dressed in casual attire with long, unkempt, glasses, sometimes wearing a blanket as a cape; with adequate hygiene; mood is described as paranoid and affect constricted to angry; often anxious; eye contact appropriate to glaring; Speech is normal rate, volume often loud; normal prosody; not pressured; psychomotor agitation present; thought process is goal directed; Thought content is with paranoid, persecutory delusional thoughts; can be pertinent to relevant topics when asked; denies any SI/HI. Denies AVH however is internally preoccupied at times. Patients insight and judgment are impaired Diagnostics Vital Signs (24Hr): Vital Signs - 24 hr 11/09/22 18:00 11/10/22 06:00 Temperature 98 F 98.4 F Pulse Rate 109 H 93 Respiratory Rate 14 Blood Pressure 118/72 133/83 Pulse Oximetry 98 99 Oxygen Delivery Method Room Air Room Air BMI result Body Mass Index 22.9 Labs 10/27/22 22:03 11/08/22 08:34 Medications Medications Current Medications Acetaminophen (Acetaminophen 325 Mg Tablet) 650 mg PO Q6H PRN PRN Reason: Headache/Pain Mild Scale (1-3) Last Admin: 11/07/22 12:28 Dose: 650 mg Al Hydroxide/Mg Hydroxide (Magnesium Hydrox/Alum Hydrox 30 Ml Oral.Susp) 30 ml PO Q6H PRN PRN Reason: Heartburn/Nausea Last Admin: 11/10/22 05:23 Dose: 30 ml Benztropine Mesylate (Benztropine Mesylate 0.5 Mg Tablet) 0.5 mg PO BID [facility] Last Admin: 11/10/22 08:12 Dose: 0.5 mg Benztropine Mesylate (Benztropine Mesylate 0.5 Mg Tablet) 0.5 mg PO TID PRN PRN Reason: Extrapyramidal Effects Chlorpromazine HCl (Chlorpromazine Hcl 25 Mg Tablet) 50 mg PO Q4H PRN PRN Reason: anxiety/agitation Last Admin: 11/10/22 04:38 Dose: 50 mg Clonazepam (Clonazepam 0.5 Mg Tablet) 0.5 mg PO BID [facility] Last Admin: 11/10/22 08:12 Dose: 0.5 mg Folic Acid (Folic Acid 1 Mg Tablet) 1 mg PO DAILY [facility] Last Admin: 11/10/22 08:12 Dose: 1 mg [place] Carbonate ([place] Carbonate 300 Mg Capsule) 1,200 mg PO BEDTIME [facility] Magnesium Hydroxide (Milk Of Magnesia 30 Ml Oral.Susp) 30 ml PO DAILY PRN PRN Reason: Constipation Multivitamins/Vitamin C (Multivitamin Tablet) 1 tab PO DAILY [facility] Last Admin: 11/10/22 08:12 Dose: 1 tab Nicotine Polacrilex (Nicotine Polacrilex 2 Mg Gum) 4 mg BUCCAL Q2H PRN PRN Reason: Nicotine Cravings Last Admin: 11/07/22 03:59 Dose: 4 mg Olanzapine (Olanzapine 10 Mg Tablet) 10 mg PO BID [facility] Last Admin: 11/10/22 08:12 Dose: 10 mg Thiamine HCl (Thiamine Hcl 100 Mg Tablet) 100 mg PO DAILY [facility] Last Admin: 11/10/22 08:12 Dose: 100 mg Trazodone HCl (Trazodone Hcl 100 Mg Tablet) 100 mg PO BEDTIME PRN PRN Reason: Insomnia Last Admin: 11/09/22 18:41 Dose: 100 mg Allergies Allergies Allergy/AdvReac Type Severity Reaction Status Date / Time No Known Allergies Allergy Verified 02/22/22 16:29 Assessment & Plan Assessment & Plan (1) Schizoaffective disorder, bipolar type: Status: Acute Code(s): F25.0 - Schizoaffective disorder, bipolar type (2) Chronic post-traumatic stress disorder (PTSD): Status: Acute Code(s): F43.12 - Post-traumatic stress disorder, chronic (3) Alcohol abuse: Status: Acute Code(s): F10.10 - Alcohol abuse, uncomplicated Plan Patient is a 22-year-old male with history of bipolar disorder type 1, alcohol abuse/dependence, PTSD discharged from 05/04/2022 and here for his 3rd inpatient admission in less than 1 year,, who Self presents for paranoid ideations that he is being followed by people who want to harm him in the face of having gone off his medication this past summer and relapsing with alcohol. In the ED patient disrobing, disorganized; received Haldol for p.r.n. received Haldol as a p.r.n. -patient has history of severe manic episodes with significant psychotic features and extensive delusional beliefs that render him unable to function. Patient also has PTSD and seems to frequently looked alcohol as a coping strategy. On medication symptoms significantly decrease but it has never been clear whether patient has insight 10/30 patient remains with odd behavior; he is guarded and does not reveal much; remains internally preoccupied 10/31 patient psychotic with paranoid delusions. Petrophysicist reassess is diagnosis and sees that patient has psychotic symptoms even when not manic and will change diagnosis to schizoaffective. Patient says it is okay for technical writer and editor to adjust medications and that he will take whatever technical writer and editor thinks past 11/01 remains with severe paranoid delusions 11/02 patient sleeping and hypomanic; remains with intense paranoid delusions including feeling that there are peers on the unit conspiring to intimidate him; patient does agree that he seems to run into trouble when he stops taking his medications, however no insight into psychiatric illness 11/03 paranoid delusions and manic behaviors persist; patient is paranoid making accusations against multiple peers thinking there conspiring against him. Patient has no insight. Labs returned today showing subtherapeutic lithium dose so will increase. Patient put in another 3 day. However he remains paranoid and accusatory to other peers, provoking them and at this time is unsafe to return to the community 11/04 remains with paranoid delusions;?Discussed case with nursing; met with patient; reviewed vitals and tachycardic 11/05 no change; continues to have paranoid and delusional thoughts; unwanted approaches to other peers on the unit who are afraid of him due to his behaviors. Continues to insist that multiple people on the unit and in the community have plans to harm him and that he is afraid. At this time technical writer and editor is concerned for his safety. [place] dose recently increased and needs time to become therapeutic. Will continue to assess. 11/06 patient remains with severe paranoid and grandiose delusions; he thinks that peers are conspiring against him and says he is afraid for his safety; remains without any insight. Says he does not want to take Geodon or lithium. Patient is accusatory and sometimes aggressively posturing towards staff and peers. Patient is at risk for inciting pre-emptive or retaliatory aggression from others he is accusing and challenging. Petrophysicist and team agreed that patient is not safe for discharge to the community. Discussed with team who agree that while sometimes patients chauncey can be addressed with medication, medications have yet to significantly erode paranoid delusions; however patient is not open to medication changes at this time. 11/07 severe, paranoid persecutory delusions, just during provoking to others whom he delusionally believes are conspiring against him. Refused medications last night, though took them today. 11/08 remains with paranoid delusions, but did sleep last night. Agrees to trial of Zyprexa (will go with this med since some partial response in past and may have gotten dystonia from typical antipsychotic in ED) 11/[address] Miranda, continue current tx. Plan: Petition court for involuntary commitment and medication Q 15 minute checks Will likely switch to Zyprexa and dc Geodon but for now, Continue Geodon 80 mg b.i.d. Continue lithium ER 300 mg daily; will convert to bedtime dose Lower back to lithium ER to 900 mg q.h.s. (patient said increase makes him nauseous and he will not take increased dose even though level was subtherapeutic); BUN creatinine, TSH, lytes within normal limits Will recheck lithium and associated lab work Started Cogentin 0.5 mg b.i.d.; not sure if dystonic reaction was from Haldol received in the ED or from Geodon or just combination; might make it a p.r.n.. -reviewed ED note; reviewed technical writer and editor's notes from past admission In the past, these meds partially stabilized manic behaviors but did not resolve delusions: -Depakote ER 250 mg in the morning and 1000 mg q.h.s. -Risperdal 4 mg Med trial Zyprexa: ?partially helpful as prn. Reason for contiued inpatient stay Substantial Risk for: inability to function Time Spent With Patient Time: Total time managing care of this patient today ____ minutes.
[2022-11-10] MEDS: Acetaminophen 325 MG TABLET 650 MG PO (15:54)
[2022-11-10 17:00] VITALS: BP 111/78; PULSE 110; TEMP 36.6
[2022-11-10] MEDS: Lithium Carbonate 300 MG CAPSULE 1200 MG PO (20:55)
[2022-11-10] MEDS: traZODone HCL 100 MG TABLET PO (20:57)
[2022-11-11] MEDS: chlorproMAZINE HCl 25 MG TABLET 50 MG PO ×2 (02:52→12:08)
[2022-11-11] MEDS: Acetaminophen 325 MG TABLET 650 MG PO (02:52)
[2022-11-11] MEDS: traZODone HCL 100 MG TABLET PO ×2 (02:52→20:05)
[2022-11-11] MEDS: Magnesium Hydrox/Alum Hydrox 30 ML ORAL.SUSP PO ×2 (05:28→17:24)
[2022-11-11 06:00] VITALS: BP 130/82; PULSE 105; RESP 14; TEMP 36.1; O2SAT 98
[2022-11-11] MEDS: Multivitamin TABLET 1 TAB PO (08:56)
[2022-11-11] MEDS: Folic Acid 1 MG TABLET PO (08:56)
[2022-11-11] MEDS: OLANZapine 10 MG TABLET PO ×2 (08:56→20:05)
[2022-11-11] MEDS: Thiamine HCL 100 MG TABLET PO (08:56)
[2022-11-11] MEDS: Benztropine Mesylate 0.5 MG TABLET PO ×2 (08:56→20:05)
[2022-11-11] MEDS: clonazePAM 0.5 MG TABLET PO ×2 (08:56→20:05)
[2022-11-11] MEDS: Nicotine Polacrilex 2 MG GUM 4 MG BUCCAL (16:52)
[2022-11-11 17:25] VITALS: BP 118/70; PULSE 70; RESP 18; TEMP 37.2; O2SAT 100
[2022-11-11] MEDS: Lithium Carbonate 300 MG CAPSULE 1200 MG PO (20:05)
--- NOTE | 2022-11-11 20:14 | P.PNPSI_ITS ---
Subjective Subjective Date of Service: 11/11/22 Reason For Visit: chauncey Interim History: Reviewed with nursing. Continues with lability and at times inappropriate with peers. Approachable, disorganized and isolative. Reports he feels well. Did discuss why medicine is needed however responded well to that discussion, Medication Compliance: Yes Side effects from medications: No Attending Groups: No Review of Systems Acute medical concerns: No Medical Review of Systems: unchanged Mental Status Exam Mental Status Exam Patient Appearance: Unkempt Patient Orientation: Person and Place Level of Consciousness: Alert Patient Behavior: Talkative and Distractible Mood Description: Hostile and Labile Affect Description: Hostile and Labile Patient Cognition Impaired: Yes Ability to Follow Directions: Fair Speech Pattern: Spontaneous Speech Memory Description: Remote Impaired and Episodic Impaired Hallucinations: Auditory Delusions: Paranoid Ideation and Present Thought Process: Illogical and Distracted Thought Content: positive for Racing, positive for Tangential, positive for Disorganized and positive for Suicidal Ideation (denies) Judgement: Poor Diagnostics Vital Signs (24Hr): Vital Signs - 24 hr 11/11/22 06:00 11/11/22 17:25 Temperature 97 F 98.9 F Pulse Rate 105 H 70 Respiratory Rate 14 18 Blood Pressure 130/82 118/70 Pulse Oximetry 98 100 Oxygen Delivery Method Room Air Room Air BMI result Body Mass Index 22.9 Labs 10/27/22 22:03 11/08/22 08:34 Medications Medications Current Medications Acetaminophen (Acetaminophen 325 Mg Tablet) 650 mg PO Q6H PRN PRN Reason: Headache/Pain Mild Scale (1-3) Last Admin: 11/11/22 02:52 Dose: 650 mg Al Hydroxide/Mg Hydroxide (Magnesium Hydrox/Alum Hydrox 30 Ml Oral.Susp) 30 ml PO Q6H PRN PRN Reason: Heartburn/Nausea Last Admin: 11/11/22 17:24 Dose: 30 ml Benztropine Mesylate (Benztropine Mesylate 0.5 Mg Tablet) 0.5 mg PO BID [facility] Last Admin: 11/11/22 20:05 Dose: 0.5 mg Benztropine Mesylate (Benztropine Mesylate 0.5 Mg Tablet) 0.5 mg PO TID PRN PRN Reason: Extrapyramidal Effects Chlorpromazine HCl (Chlorpromazine Hcl 25 Mg Tablet) 50 mg PO Q4H PRN PRN Reason: anxiety/agitation Last Admin: 11/11/22 12:08 Dose: 50 mg Clonazepam (Clonazepam 0.5 Mg Tablet) 0.5 mg PO BID [facility] Last Admin: 11/11/22 20:05 Dose: 0.5 mg Folic Acid (Folic Acid 1 Mg Tablet) 1 mg PO DAILY [facility] Last Admin: 11/11/22 08:56 Dose: 1 mg [place] Carbonate ([place] Carbonate 300 Mg Capsule) 1,200 mg PO BEDTIME [facility] Last Admin: 11/11/22 20:05 Dose: 1,200 mg Magnesium Hydroxide (Milk Of Magnesia 30 Ml Oral.Susp) 30 ml PO DAILY PRN PRN Reason: Constipation Multivitamins/Vitamin C (Multivitamin Tablet) 1 tab PO DAILY [facility] Last Admin: 11/11/22 08:56 Dose: 1 tab Nicotine Polacrilex (Nicotine Polacrilex 2 Mg Gum) 4 mg BUCCAL Q2H PRN PRN Reason: Nicotine Cravings Last Admin: 11/11/22 16:52 Dose: 4 mg Olanzapine (Olanzapine 10 Mg Tablet) 10 mg PO BID [facility] Last Admin: 11/11/22 20:05 Dose: 10 mg Omeprazole (Omeprazole 20 Mg Capsule.Dr) 20 mg PO DAILY@0630 [facility] Thiamine HCl (Thiamine Hcl 100 Mg Tablet) 100 mg PO DAILY [facility] Last Admin: 11/11/22 08:56 Dose: 100 mg Trazodone HCl (Trazodone Hcl 100 Mg Tablet) 100 mg PO BEDTIME PRN PRN Reason: Insomnia Last Admin: 11/11/22 20:05 Dose: 100 mg Allergies Allergies Allergy/AdvReac Type Severity Reaction Status Date / Time No Known Allergies Allergy Verified 02/22/22 16:29 Assessment & Plan Assessment & Plan (1) Schizoaffective disorder, bipolar type: Status: Acute Code(s): F25.0 - Schizoaffective disorder, bipolar type (2) Chronic post-traumatic stress disorder (PTSD): Status: Acute Code(s): F43.12 - Post-traumatic stress disorder, chronic (3) Alcohol abuse: Status: Acute Code(s): F10.10 - Alcohol abuse, uncomplicated Plan Patient is a 22-year-old male with history of bipolar disorder type 1, alcohol abuse/dependence, PTSD discharged from 05/04/2022 and here for his 3rd inpatient admission in less than 1 year,, who Self presents for paranoid ideations that he is being followed by people who want to harm him in the face of having gone off his medication this past summer and relapsing with alcohol. In the ED patient disrobing, disorganized; received Haldol for p.r.n. received Haldol as a p.r.n. -patient has history of severe manic episodes with significant psychotic features and extensive delusional beliefs that render him unable to function. Patient also has PTSD and seems to frequently looked alcohol as a coping strategy. On medication symptoms significantly decrease but it has never been clear whether patient has insight 10/30 patient remains with odd behavior; he is guarded and does not reveal much; remains internally preoccupied 10/31 patient psychotic with paranoid delusions. Folder Stitcher Operator reassess is diagnosis and sees that patient has psychotic symptoms even when not manic and will change diagnosis to schizoaffective. Patient says it is okay for ad copy writer to adjust medications and that he will take whatever ad copy writer thinks past 11/01 remains with severe paranoid delusions 11/02 patient sleeping and hypomanic; remains with intense paranoid delusions including feeling that there are peers on the unit conspiring to intimidate him; patient does agree that he seems to run into trouble when he stops taking his medications, however no insight into psychiatric illness 11/03 paranoid delusions and manic behaviors persist; patient is paranoid making accusations against multiple peers thinking there conspiring against him. Patient has no insight. Labs returned today showing subtherapeutic lithium dose so will increase. Patient put in another 3 day. However he remains paranoid and accusatory to other peers, provoking them and at this time is unsafe to return to the community 11/04 remains with paranoid delusions;?Discussed case with nursing; met with patient; reviewed vitals and tachycardic 11/05 no change; continues to have paranoid and delusional thoughts; unwanted approaches to other peers on the unit who are afraid of him due to his behaviors. Continues to insist that multiple people on the unit and in the community have plans to harm him and that he is afraid. At this time ad copy writer is concerned for his safety. [place] dose recently increased and needs time to become therapeutic. Will continue to assess. 11/06 patient remains with severe paranoid and grandiose delusions; he thinks that peers are conspiring against him and says he is afraid for his safety; remains without any insight. Says he does not want to take Geodon or lithium. Patient is accusatory and sometimes aggressively posturing towards staff and pee rs. Patient is at risk for inciting pre-emptive or retaliatory aggression from others he is accusing and challenging. Folder Stitcher Operator and team agreed that patient is not safe for discharge to the community. Discussed with team who agree that while sometimes patients chauncey can be addressed with medication, medications have yet to significantly erode paranoid delusions; however patient is not open to medication changes at this time. 11/07 severe, paranoid persecutory delusions, just during provoking to others whom he delusionally believes are conspiring against him. Refused medications last night, though took them today. 11/08 remains with paranoid delusions, but did sleep last night. Agrees to trial of Zyprexa (will go with this med since some partial response in past and may have gotten dystonia from typical antipsychotic in ED) 11/[address] Miranda, continue current tx. 11/11/22- continue current plan of care. Section VII Plan: Petition court for involuntary commitment and medication Q 15 minute checks Will likely switch to Zyprexa and dc Geodon but for now, Continue Geodon 80 mg b.i.d. Continue lithium ER 300 mg daily; will convert to bedtime dose Lower back to lithium ER to 900 mg q.h.s. (patient said increase makes him nauseous and he will not take increased dose even though level was subtherapeutic); BUN creatinine, TSH, lytes within normal limits Will recheck lithium and associated lab work Started Cogentin 0.5 mg b.i.d.; not sure if dystonic reaction was from Haldol received in the ED or from Geodon or just combination; might make it a p.r.n.. -reviewed ED note; reviewed ad copy writer's notes from past admission In the past, these meds partially stabilized manic behaviors but did not resolve delusions: -Depakote ER 250 mg in the morning and 1000 mg q.h.s. -Risperdal 4 mg Med trial Zyprexa: ?partially helpful as prn. Informed Consent: does not understand Reason for contiued inpatient stay Substantial Risk for: rapid decompensation Time Spent With Patient Time: Total time managing care of this patient today ____ minutes.
[2022-11-12 06:00] VITALS: BP 128/73; PULSE 100; RESP 14; TEMP 36.6; O2SAT 99
[2022-11-12] MEDS: Omeprazole 20 MG CAPSULE.DR PO (06:33)
[2022-11-12] MEDS: Thiamine HCL 100 MG TABLET PO (08:28)
[2022-11-12] MEDS: Folic Acid 1 MG TABLET PO (08:28)
[2022-11-12] MEDS: Multivitamin TABLET 1 TAB PO (08:28)
[2022-11-12] MEDS: Benztropine Mesylate 0.5 MG TABLET PO ×2 (08:28→19:45)
[2022-11-12] MEDS: clonazePAM 0.5 MG TABLET PO ×2 (08:28→19:45)
[2022-11-12] MEDS: OLANZapine 10 MG TABLET PO ×2 (08:28→19:45)
[2022-11-12] MEDS: Nicotine Polacrilex 2 MG GUM 4 MG BUCCAL (16:10)
[2022-11-12] MEDS: chlorproMAZINE HCl 25 MG TABLET 50 MG PO (16:11)
[2022-11-12 18:00] VITALS: BP 136/86; PULSE 104; RESP 16; TEMP 36.8; O2SAT 97
--- NOTE | 2022-11-12 19:27 | HO.PSYCHPN ---
Subjective Subjective Date of Service: 11/12/22 Reason For Visit: chauncey Subjective Notes: [facility] Proxy: No Guardianship: No Medical Problems Affecting Mental Status: No Interim History: Pt continues to be intrusive. Team have asked him to stay out of the common area at this time as he is targeting of others, making inappropriate comments to peers. Reports he is feeling well. Denies struggling with peers, just speaking honestly . Brief periods of clarity when approached today. Side effects from medications: No Attending Groups: No Review of Systems Acute medical concerns: No Medical Review of Systems: unchanged Mental Status Exam Mental Status Exam Patient Appearance: Unkempt Patient Orientation: Person and Place Level of Consciousness: Alert Patient Behavior: Talkative and Distractible Mood Description: Hostile and Labile Affect Description: Hostile and Labile Patient Cognition Impaired: Yes Ability to Follow Directions: Fair Speech Pattern: Spontaneous Speech Memory Description: Remote Impaired and Episodic Impaired Hallucinations: Auditory Delusions: Paranoid Ideation and Present Thought Process: Illogical and Distracted Thought Content: positive for Racing, positive for Tangential, positive for Disorganized and positive for Suicidal Ideation (denies) Judgement: Poor Diagnostics Vital Signs (24Hr): Vital Signs - 24 hr 11/12/22 06:00 11/12/22 18:00 Temperature 97.8 F 98.2 F Pulse Rate 100 104 H Respiratory Rate 14 16 Blood Pressure 128/73 136/86 Pulse Oximetry 99 97 Oxygen Delivery Method Room Air Room Air BMI result Body Mass Index 22.9 Labs 10/27/22 22:03 11/08/22 08:34 Medications Medications Current Medications Acetaminophen (Acetaminophen 325 Mg Tablet) 650 mg PO Q6H PRN PRN Reason: Headache/Pain Mild Scale (1-3) Last Admin: 11/11/22 02:52 Dose: 650 mg Al Hydroxide/Mg Hydroxide (Magnesium Hydrox/Alum Hydrox 30 Ml Oral.Susp) 30 ml PO Q6H PRN PRN Reason: Heartburn/Nausea Last Admin: 11/11/22 17:24 Dose: 30 ml Benztropine Mesylate (Benztropine Mesylate 0.5 Mg Tablet) 0.5 mg PO BID [facility] Last Admin: 11/12/22 08:28 Dose: 0.5 mg Benztropine Mesylate (Benztropine Mesylate 0.5 Mg Tablet) 0.5 mg PO TID PRN PRN Reason: Extrapyramidal Effects Chlorpromazine HCl (Chlorpromazine Hcl 25 Mg Tablet) 50 mg PO Q4H PRN PRN Reason: anxiety/agitation Last Admin: 11/12/22 16:11 Dose: 50 mg Clonazepam (Clonazepam 0.5 Mg Tablet) 0.5 mg PO BID [facility] Last Admin: 11/12/22 08:28 Dose: 0.5 mg Folic Acid (Folic Acid 1 Mg Tablet) 1 mg PO DAILY [facility] Last Admin: 11/12/22 08:28 Dose: 1 mg [place] Carbonate ([place] Carbonate 300 Mg Capsule) 1,200 mg PO BEDTIME [facility] Last Admin: 11/11/22 20:05 Dose: 1,200 mg Magnesium Hydroxide (Milk Of Magnesia 30 Ml Oral.Susp) 30 ml PO DAILY PRN PRN Reason: Constipation Multivitamins/Vitamin C (Multivitamin Tablet) 1 tab PO DAILY [facility] Last Admin: 11/12/22 08:28 Dose: 1 tab Nicotine Polacrilex (Nicotine Polacrilex 2 Mg Gum) 4 mg [place]CC[place] Q2H PRN PRN Reason: Nicotine Cravings Last Admin: 11/12/22 16:10 Dose: 4 mg Olanzapine (Olanzapine 10 Mg Tablet) 10 mg PO BID [facility] Last Admin: 11/12/22 08:28 Dose: 10 mg Omeprazole (Omeprazole 20 Mg Capsule.Dr) 20 mg PO DAILY@0630 [facility] Last Admin: 11/12/22 06:33 Dose: 20 mg Thiamine HCl (Thiamine Hcl 100 Mg Tablet) 100 mg PO DAILY [facility] Last Admin: 11/12/22 08:28 Dose: 100 mg Trazodone HCl (Trazodone Hcl 100 Mg Tablet) 100 mg PO BEDTIME PRN PRN Reason: Insomnia Last Admin: 11/11/22 20:05 Dose: 100 mg Allergies Allergies Allergy/AdvReac Type Severity Reaction Status Date / Time No Known Allergies Allergy Verified 02/22/22 16:29 Assessment & Plan Assessment & Plan (1) Schizoaffective disorder, bipolar type: Status: Acute Code(s): F25.0 - Schizoaffective disorder, bipolar type (2) Chronic post-traumatic stress disorder (PTSD): Status: Acute Code(s): F43.12 - Post-traumatic stress disorder, chronic (3) Alcohol abuse: Status: Acute Code(s): F10.10 - Alcohol abuse, uncomplicated Plan Patient is a 22-year-old male with history of bipolar disorder type 1, alcohol abuse/dependence, PTSD discharged from 05/04/2022 and here for his 3rd inpatient admission in less than 1 year,, who Self presents for paranoid ideations that he is being followed by people who want to harm him in the face of having gone off his medication this past summer and relapsing with alcohol. In the ED patient disrobing, disorganized; received Haldol for p.r.n. received Haldol as a p.r.n. -patient has history of severe manic episodes with significant psychotic features and extensive delusional beliefs that render him unable to function. Patient also has PTSD and seems to frequently looked alcohol as a coping strategy. On medication symptoms significantly decrease but it has never been clear whether patient has insight 10/30 patient remains with odd behavior; he is guarded and does not reveal much; remains internally preoccupied 10/31 patient psychotic with paranoid delusions. Rn Research reassess is diagnosis and sees that patient has psychotic symptoms even when not manic and will change diagnosis to schizoaffective. Patient says it is okay for proposal manager writer to adjust medications and that he will take whatever proposal manager writer thinks past 11/01 remains with severe paranoid delusions 11/02 patient sleeping and hypomanic; remains with intense paranoid delusions including feeling that there are peers on the unit conspiring to intimidate him; patient does agree that he seems to run into trouble when he stops taking his medications, however no insight into psychiatric illness 11/03 paranoid delusions and manic behaviors persist; patient is paranoid making accusations against multiple peers thinking there conspiring against him. Patient has no insight. Labs returned today showing subtherapeutic lithium dose so will increase. Patient put in another 3 day. However he remains paranoid and accusatory to other peers, provoking them and at this time is unsafe to return to the community 11/04 remains with paranoid delusions;?Discussed case with nursing; met with patient; reviewed vitals and tachycardic 11/05 no change; continues to have paranoid and delusional thoughts; unwanted approaches to other peers on the unit who are afraid of him due to his behaviors. Continues to insist that multiple people on the unit and in the community have plans to harm him and that he is afraid. At this time proposal manager writer is concerned for his safety. [place] dose recently increased and needs time to become therapeutic. Will continue to assess. 11/06 patient remains with severe paranoid and grandiose delusions; he thinks that peers are conspiring against him and says he is afraid for his safety; remains without any insight. Says he does not want to take Geodon or lithium. Patient is accusatory and sometimes aggressively posturing towards staff and peers. Patient is at risk for inciting pre-emptive or retaliatory aggression from others he is accusing and challenging. Rn Research and team agreed that patient is not safe for discharge to the community. Discussed with team who agree that while sometimes patients chauncey can be addressed with medication, medications have yet to significantly erode paranoid delusions; however patient is not open to medication changes at this time. 11/07 severe, paranoid persecutory delusions, just during provoking to others whom he delusionally believes are conspiring against him. Refused medications last night, though took them today. 11/08 remains with paranoid delusions, but did sleep last night. Agrees to trial of Zyprexa (will go with this med since some partial response in past and may have gotten dystonia from typical antipsychotic in ED) 11/[address] Miranda, continue current tx. 11/12/22 continue current treatment plan. Plan: Petition court for involuntary commitment and medication Q 15 minute checks Will likely switch to Zyprexa and dc Geodon but for now, Continue Geodon 80 mg b.i.d. Continue lithium ER 300 mg daily; will convert to bedtime dose Lower back to lithium ER to 900 mg q.h.s. (patient said increase makes him nauseous and he will not take increased dose even though level was subtherapeutic); BUN creatinine, TSH, lytes within normal limits Will recheck lithium and associated lab work Started Cogentin 0.5 mg b.i.d.; not sure if dystonic reaction was from Haldol received in the ED or from Geodon or just combination; might make it a p.r.n.. -reviewed ED note; reviewed proposal manager writer's notes from past admission In the past, these meds partially stabilized manic behaviors but did not resolve delusions: -Depakote ER 250 mg in the morning and 1000 mg q.h.s. -Risperdal 4 mg Med trial Zyprexa: ?partially helpful as prn. Informed Consent: does not understand Reason for contiued inpatient stay Substantial Risk for: rapid decompensation Time Spent With Patient Time: Total time managing care of this patient today ____ minutes.
[2022-11-12] MEDS: traZODone HCL 100 MG TABLET PO (19:45)
[2022-11-12] MEDS: Lithium Carbonate 300 MG CAPSULE 1200 MG PO (19:45)
[2022-11-13 06:00] VITALS: BP 120/77; PULSE 106; RESP 14; TEMP 36.6; O2SAT 97
[2022-11-13] MEDS: Acetaminophen 325 MG TABLET 650 MG PO (08:19)
[2022-11-13] MEDS: Thiamine HCL 100 MG TABLET PO (08:20)
[2022-11-13] MEDS: clonazePAM 0.5 MG TABLET PO ×2 (08:20→13:55)
[2022-11-13] MEDS: Folic Acid 1 MG TABLET PO (08:20)
[2022-11-13] MEDS: Omeprazole 20 MG CAPSULE.DR PO (08:20)
[2022-11-13] MEDS: Multivitamin TABLET 1 TAB PO (08:20)
[2022-11-13] MEDS: OLANZapine 10 MG TABLET PO (08:20)
--- NOTE | 2022-11-13 09:30 | HO.PSYCHPN ---
Subjective Subjective Date of Service: 11/13/22 Reason For Visit: chauncey Interim History: Met with patient; discussed with team; reviewed covering providers weekend notes Patient remains manic with paranoid delusions. Over the weekend patient was barred from the day room for antagonizing patient is having called 1 patient fat and another queer. Told staff that staff person would be left behind when the aliens come. Today patient remains paranoid, and provocative and aggressively said to peer stop looking at me you fat idiot.. Called another peer a junky which angered peer but who stayed in self-control. Patient told another staff member there was a vampire in the [employer]. [employer] attempted reality testing but patient remains adamant that peers on the unit conspire against him. He agreed to increasing Zyprexa at bedtime for not sleeping. Mental Status Exam Mental Status Exam Narrative: Pt is alert and oriented; behavior is manic, predominantly agitated, accusatory, guarded and disorganized; can be cooperative and calm at times; dressed in casual attire with long, unkempt, glasses, sometimes wearing a blanket as a cape; with adequate hygiene; mood is described as paranoid and affect constricted to angry; often anxious; eye contact appropriate to glaring; Speech is normal rate, volume often loud; normal prosody; not pressured; psychomotor agitation present; thought process is goal directed; Thought content is with paranoid, persecutory delusional thoughts; can be pertinent to relevant topics when asked; denies any SI/HI. Denies AVH however is internally preoccupied at times. Patients insight and judgment are impaired Diagnostics Vital Signs (24Hr): Vital Signs - 24 hr 11/12/22 18:00 Temperature 98.2 F Pulse Rate 104 H Respiratory Rate 16 Blood Pressure 136/86 Pulse Oximetry 97 Oxygen Delivery Method Room Air BMI result Body Mass Index 22.9 Labs 10/27/22 22:03 11/08/22 08:34 Medications Medications Current Medications Acetaminophen (Acetaminophen 325 Mg Tablet) 650 mg PO Q6H PRN PRN Reason: Headache/Pain Mild Scale (1-3) Last Admin: 11/13/22 08:19 Dose: 650 mg Al Hydroxide/Mg Hydroxide (Magnesium Hydrox/Alum Hydrox 30 Ml Oral.Susp) 30 ml PO Q6H PRN PRN Reason: Heartburn/Nausea Last Admin: 11/11/22 17:24 Dose: 30 ml Benztropine Mesylate (Benztropine Mesylate 0.5 Mg Tablet) 0.5 mg PO BID [facility] Last Admin: 11/12/22 19:45 Dose: 0.5 mg Benztropine Mesylate (Benztropine Mesylate 0.5 Mg Tablet) 0.5 mg PO TID PRN PRN Reason: Extrapyramidal Effects Chlorpromazine HCl (Chlorpromazine Hcl 25 Mg Tablet) 50 mg PO Q4H PRN PRN Reason: anxiety/agitation Last Admin: 11/12/22 16:11 Dose: 50 mg Clonazepam (Clonazepam 0.5 Mg Tablet) 0.5 mg PO BID [facility] Last Admin: 11/13/22 08:20 Dose: 0.5 mg Folic Acid (Folic Acid 1 Mg Tablet) 1 mg PO DAILY [facility] Last Admin: 11/13/22 08:20 Dose: 1 mg [place] Carbonate ([place] Carbonate 300 Mg Capsule) 1,200 mg PO BEDTIME [facility] Last Admin: 11/12/22 19:45 Dose: 1,200 mg Magnesium Hydroxide (Milk Of Magnesia 30 Ml Oral.Susp) 30 ml PO DAILY PRN PRN Reason: Constipation Multivitamins/Vitamin C (Multivitamin Tablet) 1 tab PO DAILY [facility] Last Admin: 11/13/22 08:20 Dose: 1 tab Nicotine Polacrilex (Nicotine Polacrilex 2 Mg Gum) 4 mg BUCCAL Q2H PRN PRN Reason: Nicotine Cravings Last Admin: 11/12/22 16:10 Dose: 4 mg Olanzapine (Olanzapine 10 Mg Tablet) 10 mg PO DAILY [facility] Last Admin: 11/13/22 08:20 Dose: 10 mg Olanzapine (Olanzapine 10 Mg Tablet) 20 mg PO BEDTIME [facility] Omeprazole (Omeprazole 20 Mg Capsule.Dr) 20 mg PO DAILY@0630 [facility] Last Admin: 11/13/22 08:20 Dose: 20 mg Thiamine HCl (Thiamine Hcl 100 Mg Tablet) 100 mg PO DAILY [facility] Last Admin: 11/13/22 08:20 Dose: 100 mg Trazodone HCl (Trazodone Hcl 100 Mg Tablet) 100 mg PO BEDTIME PRN PRN Reason: Insomnia Last Admin: 11/12/22 19:45 Dose: 100 mg Allergies Allergies Allergy/AdvReac Type Severity Reaction Status Date / Time No Known Allergies Allergy Verified 02/22/22 16:29 Assessment & Plan Assessment & Plan (1) Schizoaffective disorder, bipolar type: Status: Acute Code(s): F25.0 - Schizoaffective disorder, bipolar type (2) Chronic post-traumatic stress disorder (PTSD): Status: Acute Code(s): F43.12 - Post-traumatic stress disorder, chronic (3) Alcohol abuse: Status: Acute Code(s): F10.10 - Alcohol abuse, uncomplicated Plan Patient is a 22-year-old male with history of bipolar disorder type 1, alcohol abuse/dependence, PTSD discharged from 05/04/2022 and here for his 3rd inpatient admission in less than 1 year,, who Self presents for paranoid ideations that he is being followed by people who want to harm him in the face of having gone off his medication this past summer and relapsing with alcohol. In the ED patient disrobing, disorganized; received Haldol for p.r.n. received Haldol as a p.r.n. -patient has history of severe manic episodes with significant psychotic features and extensive delusional beliefs that render him unable to function. Patient also has PTSD and seems to frequently looked alcohol as a coping strategy. On medication symptoms significantly decrease but it has never been clear whether patient has insight 10/30 patient remains with odd behavior; he is guarded and does not reveal much; remains internally preoccupied 10/31 patient psychotic with paranoid delusions. [employer] reassess is diagnosis and sees that patient has psychotic symptoms even when not manic and will change diagnosis to schizoaffective. Patient says it is okay for grant writer to adjust medications and that he will take whatever grant writer thinks past 11/01 remains with severe paranoid delusions 11/02 patient sleeping and hypomanic; remains with intense paranoid delusions including feeling that there are peers on the unit conspiring to intimidate him; patient does agree that he seems to run into trouble when he stops taking his medications, however no insight into psychiatric illness 11/03 paranoid delusions and manic behaviors persist; patient is paranoid making accusations against multiple peers thinking there conspiring against him. Patient has no insight. Labs returned today showing subtherapeutic lithium dose so will increase. Patient put in another 3 day. However he remains paranoid and accusatory to other peers, provoking them and at this time is unsafe to return to the community 11/04 remains with paranoid delusions;?Discussed case with nursing; met with patient; reviewed vitals and tachycardic 11/05 no change; continues to have paranoid and delusional thoughts; unwanted approaches to other peers on the unit who are afraid of him due to his behaviors. Continues to insist that multiple people on the unit and in the community have plans to harm him and that he is afraid. At this time grant writer is concerned for his safety. [place] dose recently increased and needs time to become therapeutic. Will continue to assess. 11/06 patient remains with severe paranoid and grandiose delusions; he thinks that peers are conspiring against him and says he is afraid for his safety; remains without any insight. Says he does not want to take Geodon or lithium. Patient is accusatory and sometimes aggressively posturing towards staff and peers. Patient is at risk for inciting pre-emptive or retaliatory aggression from others he is accusing and challenging. [employer] and team agreed that patient is not safe for discharge to the community. Discussed with team who agree that while sometimes patients chauncey can be addressed with medication, medications have yet to significantly erode paranoid delusions; however patient is not open to medication changes at this time. 11/07 severe, paranoid persecutory delusions, just during provoking to others whom he delusionally believes are conspiring against him. Refused medications last night, though took them today. 11/08 remains with paranoid delusions, but did sleep last night. Agrees to trial of Zyprexa (will go with this med since some partial response in past and may have gotten dystonia from typical antipsychotic in ED) 11/13 remains with paranoid delusions, grandiose, or provocative towards peers whom he believes are conspiring against him. Plan: Petition court for involuntary commitment and medication Q 15 minute checks Increase to Zyprexa 10mg daily and 20 mg q.h.s. Continue lithium ER 1200mg 300 mg qhs (this does was subtherapeutic but said nauseus at higher dose); BUN creatinine, TSH, lytes within normal limits Changed to Cogentin 0.5 mg PRN (not sure if dystonic reaction was from Haldol received in the ED or from Geodon or just combination, but has not returned) -reviewed ED note; reviewed grant writer's notes from past admission In the past, these meds partially stabilized manic behaviors but did not resolve delusions: -Depakote ER 250 mg in the morning and 1000 mg q.h.s. -Risperdal 4 mg -Geodon: not effective Med trial Zyprexa: ?partially helpful as prn. Patient educated on: diagnosis and medication risk/benefits Informed Consent: does not understand and further education needed Reason for contiued inpatient stay Substantial Risk for: inability to function Time Spent With Patient Time: Total time managing care of this patient today ____ minutes.
[2022-11-13] MEDS: chlorproMAZINE HCl 25 MG TABLET 50 MG PO (15:43)
[2022-11-13 17:00] VITALS: BP 120/64; PULSE 98; TEMP 36.8
[2022-11-13] MEDS: Lithium Carbonate 300 MG CAPSULE 1200 MG PO (19:55)
[2022-11-13] MEDS: clonazePAM 1 MG TABLET PO (19:56)
[2022-11-13] MEDS: traZODone HCL 100 MG TABLET PO (19:57)
[2022-11-13] MEDS: OLANZapine 10 MG TABLET 20 MG PO (19:57)
[2022-11-14] MEDS: Multivitamin TABLET 1 TAB PO (08:56)
[2022-11-14] MEDS: OLANZapine 10 MG TABLET PO (08:56)
[2022-11-14] MEDS: Omeprazole 20 MG CAPSULE.DR PO (08:56)
[2022-11-14] MEDS: clonazePAM 0.5 MG TABLET PO ×2 (08:56→14:21)
[2022-11-14] MEDS: Folic Acid 1 MG TABLET PO (08:56)
[2022-11-14] MEDS: chlorproMAZINE HCl 25 MG TABLET 50 MG PO (08:56)
[2022-11-14] MEDS: Thiamine HCL 100 MG TABLET PO (08:56)
[2022-11-14 11:49] VITALS: BP 129/80; PULSE 108; RESP 18; TEMP 37.2; O2SAT 97
--- NOTE | 2022-11-14 14:02 | HO.PSYCHPN ---
Subjective Subjective Date of Service: 11/14/22 Reason For Visit: chauncey Interim History: Late entry note for patient seen 11/14 Met with patient; discussed in teams Patient remains with paranoid delusions and is anxious and provocative towards peers. Patient continues to refer his relationshiop with Francesco Merlos. He tells functional tester typewriters that one peer made a sh sh sh noise near him and accused a new peer of making a stabbing sign...which is a shank sign. He continues to say that peers are making threats against him and trying to kill me. Patient says he does not want to go to court and that if he does it will break [his] mothers heart... Steam Trap Worker and patient discussed his past more which involves traumatic upbringing with overbearing and bullying family members. Patient said that he realized he never emotionally matured past 8 years old and that he still thinks and behaves like a 8-year-old. Steam Trap Worker tried to make a connection between this traumatic history and his current paranoid feelings with peers however patient was without insight. Mental Status Exam Mental Status Exam Narrative: Pt is alert and oriented; behavior is manic, predominantly agitated, accusatory, guarded and disorganized; can be cooperative and calm at times; dressed in casual attire with long, unkempt, glasses, sometimes wearing a blanket as a cape; with adequate hygiene; mood is described as paranoid and affect constricted to angry; often anxious; eye contact appropriate to glaring; Speech is normal rate, volume often loud; normal prosody; not pressured; psychomotor agitation present; thought process is goal directed; Thought content is with paranoid, persecutory delusional thoughts; can be pertinent to relevant topics when asked; denies any SI/HI. Denies AVH however is internally preoccupied at times. Patients insight and judgment are impaired Diagnostics Vital Signs (24Hr): Vital Signs - 24 hr 11/14/22 18:50 11/15/22 08:25 Temperature 99 F 98.3 F Pulse Rate 99 91 Respiratory Rate 16 16 Blood Pressure 132/80 124/85 Pulse Oximetry 98 97 Oxygen Delivery Method Room Air Room Air BMI result Body Mass Index 22.9 Labs 10/27/22 22:03 11/08/22 08:34 Medications Medications Current Medications Acetaminophen (Acetaminophen 325 Mg Tablet) 650 mg PO Q6H PRN PRN Reason: Headache/Pain Mild Scale (1-3) Last Admin: 11/13/22 08:19 Dose: 650 mg Al Hydroxide/Mg Hydroxide (Magnesium Hydrox/Alum Hydrox 30 Ml Oral.Susp) 30 ml PO Q6H PRN PRN Reason: Heartburn/Nausea Last Admin: 11/11/22 17:24 Dose: 30 ml Benztropine Mesylate (Benztropine Mesylate 0.5 Mg Tablet) 0.5 mg PO TID PRN PRN Reason: Extrapyramidal Effects Chlorpromazine HCl (Chlorpromazine Hcl 25 Mg Tablet) 50 mg PO Q4H PRN PRN Reason: anxiety/agitation Last Admin: 11/15/22 02:40 Dose: 50 mg Clonazepam (Clonazepam 0.5 Mg Tablet) 0.5 mg PO BID@0900,1400 [facility] Last Admin: 11/15/22 13:52 Dose: 0.5 mg Clonazepam (Clonazepam 1 Mg Tablet) 1 mg PO BEDTIME [facility] Last Admin: 11/14/22 19:43 Dose: 1 mg Folic Acid (Folic Acid 1 Mg Tablet) 1 mg PO DAILY [facility] Last Admin: 11/15/22 08:28 Dose: 1 mg [place] Carbonate ([place] Carbonate 300 Mg Capsule) 1,200 mg PO BEDTIME [facility] Last Admin: 11/14/22 19:43 Dose: 1,200 mg Magnesium Hydroxide (Milk Of Magnesia 30 Ml Oral.Susp) 30 ml PO DAILY PRN PRN Reason: Constipation Multivitamins/Vitamin C (Multivitamin Tablet) 1 tab PO DAILY [facility] Last Admin: 11/15/22 08:29 Dose: 1 tab Nicotine Polacrilex (Nicotine Polacrilex 2 Mg Gum) 4 mg BUCCAL Q2H PRN PRN Reason: Nicotine Cravings Last Admin: 11/12/22 16:10 Dose: 4 mg Olanzapine (Olanzapine 10 Mg Tablet) 10 mg PO DAILY [facility] Last Admin: 11/15/22 08:29 Dose: 10 mg Olanzapine (Olanzapine 10 Mg Tablet) 30 mg PO BEDTIME [facility] Omeprazole (Omeprazole 20 Mg Capsule.Dr) 20 mg PO DAILY@0630 [facility] Last Admin: 11/15/22 08:28 Dose: 20 mg Thiamine HCl (Thiamine Hcl 100 Mg Tablet) 100 mg PO DAILY [facility] Last Admin: 11/15/22 08:29 Dose: 100 mg Zolpidem Tartrate (Zolpidem Tartrate 5 Mg Tablet) 5 mg PO BEDTIME [facility] Allergies Allergies Allergy/AdvReac Type Severity Reaction Status Date / Time No Known Allergies Allergy Verified 02/22/22 16:29 Assessment & Plan Assessment & Plan (1) Schizoaffective disorder, bipolar type: Status: Acute Code(s): F25.0 - Schizoaffective disorder, bipolar type (2) Chronic post-traumatic stress disorder (PTSD): Status: Acute Code(s): F43.12 - Post-traumatic stress disorder, chronic (3) Alcohol abuse: Status: Acute Code(s): F10.10 - Alcohol abuse, uncomplicated Plan Patient is a 22-year-old male with history of bipolar disorder type 1, alcohol abuse/dependence, PTSD discharged from 05/04/2022 and here for his 3rd inpatient admission in less than 1 year,, who Self presents for paranoid ideations that he is being followed by people who want to harm him in the face of having gone off his medication this past summer and relapsing with alcohol. In the ED patient disrobing, disorganized; received Haldol for p.r.n. received Haldol as a p.r.n. -patient has history of severe manic episodes with significant psychotic features and extensive delusional beliefs that render him unable to function. Patient also has PTSD and seems to frequently looked alcohol as a coping strategy. On medication symptoms significantly decrease but it has never been clear whether patient has insight 10/30 patient remains with odd behavior; he is guarded and does not reveal much; remains internally preoccupied 10/31 patient psychotic with paranoid delusions. Steam Trap Worker reassess is diagnosis and sees that patient has psychotic symptoms even when not manic and will change diagnosis to schizoaffective. Patient says it is okay for functional tester typewriters to adjust medications and that he will take whatever functional tester typewriters thinks past 11/01 remains with severe paranoid delusions 11/02 patient sleeping and hypomanic; remains with intense paranoid delusions including feeling that there are peers on the unit conspiring to intimidate him; patient does agree that he seems to run into trouble when he stops taking his medications, however no insight into psychiatric illness 11/03 paranoid delusions and manic behaviors persist; patient is paranoid making accusations against multiple peers thinking there conspiring against him. Patient has no insight. Labs returned today showing subtherapeutic lithium dose so will increase. Patient put in another 3 day. However he remains paranoid and accusatory to other peers, provoking them and at this time is unsafe to return to the community 11/04 remains with paranoid delusions;?Discussed case with nursing; met with patient; reviewed vitals and tachycardic 11/05 no change; continues to have paranoid and delusional thoughts; unwanted approaches to other peers on the unit who are afraid of him due to his behaviors. Continues to insist that multiple people on the unit and in the community have plans to harm him and that he is afraid. At this time functional tester typewriters is concerned for his safety. [place] dose recently increased and needs time to become therapeutic. Will continue to assess. 11/06 patient remains with severe paranoid and grandiose delusions; he thinks that peers are conspiring against him and says he is afraid for his safety; remains without any insight. Says he does not want to take Geodon or lithium. Patient is accusatory and sometimes aggressively posturing towards staff and peers. Patient is at risk for inciting pre-emptive or retaliatory aggression from others he is accusing and challenging. Steam Trap Worker and team agreed that patient is not safe for discharge to the community. Discussed with team who agree that while sometimes patients chauncey can be addressed with medication, medications have yet to significantly erode paranoid delusions; however patient is not open to medication changes at this time. 11/07 severe, paranoid persecutory delusions, just during provoking to others whom he delusionally believes are conspiring against him. Refused medications last night, though took them today. 11/08 remains with paranoid delusions, but did sleep last night. Agrees to trial of Zyprexa (will go with this med since some partial response in past and may have gotten dystonia from typical antipsychotic in ED) 11/13 remains with paranoid delusions, grandiose, or provocative towards peers whom he believes are conspiring against him. 11/14 remains with paranoid delusions, thinks people on the unit are trying to kill him. Plan: Petition court for involuntary commitment and medication Q 15 minute checks Continue Zyprexa 10mg daily and 20 mg q.h.s. Continue lithium ER 1200mg 300 mg qhs (this does was subtherapeutic but said nauseus at higher dose); BUN creatinine, TSH, lytes within normal limits Changed to Cogentin 0.5 mg PRN (not sure if dystonic reaction was from Haldol received in the ED or from Geodon or just combination, but has not returned) -reviewed ED note; reviewed functional tester typewriters's notes from past admission In the past, these meds partially stabilized manic behaviors but did not resolve delusions: -Depakote ER 250 mg in the morning and 1000 mg q.h.s. -Risperdal 4 mg -Geodon: not effective Med trial Zyprexa: ?partially helpful as prn. Patient educated on: diagnosis Informed Consent: does not understand Reason for contiued inpatient stay Substantial Risk for: harm to self, harm to others and inability to function Time Spent With Patient Time: Total time managing care of this patient today ____ minutes.
[2022-11-14 18:50] VITALS: BP 132/80; PULSE 99; RESP 16; TEMP 37.2; O2SAT 98
[2022-11-14] MEDS: traZODone HCL 100 MG TABLET PO (19:43)
[2022-11-14] MEDS: Lithium Carbonate 300 MG CAPSULE 1200 MG PO (19:43)
[2022-11-14] MEDS: clonazePAM 1 MG TABLET PO (19:43)
[2022-11-14] MEDS: OLANZapine 10 MG TABLET 20 MG PO (19:43)
[2022-11-15] MEDS: chlorproMAZINE HCl 25 MG TABLET 50 MG PO (02:40)
[2022-11-15 08:25] VITALS: BP 124/85; PULSE 91; RESP 16; TEMP 36.8; O2SAT 97
[2022-11-15] MEDS: Omeprazole 20 MG CAPSULE.DR PO (08:28)
[2022-11-15] MEDS: Folic Acid 1 MG TABLET PO (08:28)
[2022-11-15] MEDS: OLANZapine 10 MG TABLET PO (08:29)
[2022-11-15] MEDS: Thiamine HCL 100 MG TABLET PO (08:29)
[2022-11-15] MEDS: Multivitamin TABLET 1 TAB PO (08:29)
[2022-11-15] MEDS: clonazePAM 0.5 MG TABLET PO ×2 (08:29→13:52)
--- NOTE | 2022-11-15 14:11 | HO.PSYCHPN ---
Subjective Subjective Date of Service: 11/15/22 Reason For Visit: chauncey Interim History: Met with Patient and discussed patient with team Patient reports that he did not sleep very much at all last night. He thinks that while the trazodone was 1st helpful, it is now having the opposite effect. Patient again reports that a peer made stabbing motion, implying a threat. With staff, patient makes frequent comments about Francesco Merlos. Patient's mother communicated she is worried about a vitamin-D and B deficiency and patient agrees to having labs drawn. Mental Status Exam Mental Status Exam Narrative: Pt is alert and oriented; behavior is manic, predominantly agitated, accusatory, guarded and disorganized; can be cooperative and calm at times; dressed in casual attire with long, unkempt, glasses, sometimes wearing a blanket as a cape; with adequate hygiene; mood is described as paranoid and affect constricted to angry; often anxious; eye contact appropriate to glaring; Speech is normal rate, volume often loud; normal prosody; not pressured; psychomotor agitation present; thought process is goal directed; Thought content is with paranoid, persecutory delusional thoughts; can be pertinent to relevant topics when asked; denies any SI/HI. Denies AVH however is internally preoccupied at times. Patients insight and judgment are impaired Diagnostics Vital Signs (24Hr): Vital Signs - 24 hr 11/14/22 18:50 11/15/22 08:25 Temperature 99 F 98.3 F Pulse Rate 99 91 Respiratory Rate 16 16 Blood Pressure 132/80 124/85 Pulse Oximetry 98 97 Oxygen Delivery Method Room Air Room Air BMI result Body Mass Index 22.9 Labs 10/27/22 22:03 11/08/22 08:34 Medications Medications Current Medications Acetaminophen (Acetaminophen 325 Mg Tablet) 650 mg PO Q6H PRN PRN Reason: Headache/Pain Mild Scale (1-3) Last Admin: 11/13/22 08:19 Dose: 650 mg Al Hydroxide/Mg Hydroxide (Magnesium Hydrox/Alum Hydrox 30 Ml Oral.Susp) 30 ml PO Q6H PRN PRN Reason: Heartburn/Nausea Last Admin: 11/11/22 17:24 Dose: 30 ml Benztropine Mesylate (Benztropine Mesylate 0.5 Mg Tablet) 0.5 mg PO TID PRN PRN Reason: Extrapyramidal Effects Chlorpromazine HCl (Chlorpromazine Hcl 25 Mg Tablet) 50 mg PO Q4H PRN PRN Reason: anxiety/agitation Last Admin: 11/15/22 02:40 Dose: 50 mg Clonazepam (Clonazepam 0.5 Mg Tablet) 0.5 mg PO BID@0900,1400 [facility] Last Admin: 11/15/22 13:52 Dose: 0.5 mg Clonazepam (Clonazepam 1 Mg Tablet) 1 mg PO BEDTIME [facility] Last Admin: 11/14/22 19:43 Dose: 1 mg Folic Acid (Folic Acid 1 Mg Tablet) 1 mg PO DAILY [facility] Last Admin: 11/15/22 08:28 Dose: 1 mg [place] Carbonate ([place] Carbonate 300 Mg Capsule) 1,200 mg PO BEDTIME [facility] Last Admin: 11/14/22 19:43 Dose: 1,200 mg Magnesium Hydroxide (Milk Of Magnesia 30 Ml Oral.Susp) 30 ml PO DAILY PRN PRN Reason: Constipation Multivitamins/Vitamin C (Multivitamin Tablet) 1 tab PO DAILY [facility] Last Admin: 11/15/22 08:29 Dose: 1 tab Nicotine Polacrilex (Nicotine Polacrilex 2 Mg Gum) 4 mg BUCCAL Q2H PRN PRN Reason: Nicotine Cravings Last Admin: 11/12/22 16:10 Dose: 4 mg Olanzapine (Olanzapine 10 Mg Tablet) 10 mg PO DAILY [facility] Last Admin: 11/15/22 08:29 Dose: 10 mg Olanzapine (Olanzapine 10 Mg Tablet) 30 mg PO BEDTIME [facility] Omeprazole (Omeprazole 20 Mg Capsule.Dr) 20 mg PO DAILY@0630 [facility] Last Admin: 11/15/22 08:28 Dose: 20 mg Thiamine HCl (Thiamine Hcl 100 Mg Tablet) 100 mg PO DAILY [facility] Last Admin: 11/15/22 08:29 Dose: 100 mg Zolpidem Tartrate (Zolpidem Tartrate 5 Mg Tablet) 5 mg PO BEDTIME [facility] Allergies Allergies Allergy/AdvReac Type Severity Reaction Status Date / Time No Known Allergies Allergy Verified 02/22/22 16:29 Assessment & Plan Assessment & Plan (1) Schizoaffective disorder, bipolar type: Status: Acute Code(s): F25.0 - Schizoaffective disorder, bipolar type (2) Chronic post-traumatic stress disorder (PTSD): Status: Acute Code(s): F43.12 - Post-traumatic stress disorder, chronic (3) Alcohol abuse: Status: Acute Code(s): F10.10 - Alcohol abuse, uncomplicated Plan Patient is a 22-year-old male with history of bipolar disorder type 1, alcohol abuse/dependence, PTSD discharged from 05/04/2022 and here for his 3rd inpatient admission in less than 1 year,, who Self presents for paranoid ideations that he is being followed by people who want to harm him in the face of having gone off his medication this past summer and relapsing with alcohol. In the ED patient disrobing, disorganized; received Haldol for p.r.n. received Haldol as a p.r.n. -patient has history of severe manic episodes with significant psychotic features and extensive delusional beliefs that render him unable to function. Patient also has PTSD and seems to frequently looked alcohol as a coping strategy. On medication symptoms significantly decrease but it has never been clear whether patient has insight 10/30 patient remains with odd behavior; he is guarded and does not reveal much; remains internally preoccupied 10/31 patient psychotic with paranoid delusions. Assistant Golf Coach reassess is diagnosis and sees that patient has psychotic symptoms even when not manic and will change diagnosis to schizoaffective. Patient says it is okay for health technical writer to adjust medications and that he will take whatever health technical writer thinks past 11/01 remains with severe paranoid delusions 11/02 patient sleeping and hypomanic; remains with intense paranoid delusions including feeling that there are peers on the unit conspiring to intimidate him; patient does agree that he seems to run into trouble when he stops taking his medications, however no insight into psychiatric illness 11/03 paranoid delusions and manic behaviors persist; patient is paranoid making accusations against multiple peers thinking there conspiring against him. Patient has no insight. Labs returned today showing subtherapeutic lithium dose so will increase. Patient put in another 3 day. However he remains paranoid and accusatory to other peers, provoking them and at this time is unsafe to return to the community 11/04 remains with paranoid delusions;?Discussed case with nursing; met with patient; reviewed vitals and tachycardic 11/05 no change; continues to have paranoid and delusional thoughts; unwanted approaches to other peers on the unit who are afraid of him due to his behaviors. Continues to insist that multiple people on the unit and in the community have plans to harm him and that he is afraid. At this time health technical writer is concerned for his safety. [place] dose recently increased and needs time to become therapeutic. Will continue to assess. 11/06 patient remains with severe paranoid and grandiose delusions; he thinks that peers are conspiring against him and says he is afraid for his safety; remains without any insight. Says he does not want to take Geodon or lithium. Patient is accusatory and sometimes aggressively posturing towards staff and peers. Patient is at risk for inciting pre-emptive or retaliatory aggression from others he is accusing and challenging. Assistant Golf Coach and team agreed that patient is not safe for discharge to the community. Discussed with team who agree that while sometimes patients chauncey can be addressed with medication, medications have yet to significantly erode paranoid delusions; however patient is not open to medication changes at this time. 11/07 severe, paranoid persecutory delusions, just during provoking to others whom he delusionally believes are conspiring against him. Refused medications last night, though took them today. 11/08 remains with paranoid delusions, but did sleep last night. Agrees to trial of Zyprexa (will go with this med since some partial response in past and may have gotten dystonia from typical antipsychotic in ED) 11/13 remains with paranoid delusions, grandiose, or provocative towards peers whom he believes are conspiring against him. 11/14 remains with paranoid delusions, thinks people on the unit are trying to kill him. 11/15 no reduction in symptoms; will increase total daily Zyprexa dose to 40 mg. Literature shows that typically if an antipsychotic is going to work terminal manager for a person, it affords some reduction in symptoms early on even within a day or two; if patient's psychotic symptoms do not improve soon, will conclude that Zyprexa is not effective. Clozapine remains the preferred medication however patient currently refuses. Some concern for dystonic reaction from Haldol received in the emergency room; will consider alternative 1st generation antipsychotics as well. -patient's mother is worried about vitamin-D and vitamin B deficiency; while these are rare and even less likely to have a clinical significance, will order lab work as patient agrees. Plan: Petition court for involuntary commitment and medication Q 15 minute checks START Ambien 5mg qhs; if patient can sleep, this will help chauncey to break; conversely insomnia risks worsening symptoms Discontinue trazodone; patient says seems to have activated him Obtain [place] level: Was subtherapeutic at last blood drawl, however patient at that time did not tolerate increase. Continue Zyprexa 10mg daily Increased to Zyprexa 30 mg q.h.s.. Continue lithium ER 1200mg 300 mg qhs (this does was subtherapeutic but said nauseus at higher dose); BUN creatinine, TSH, lytes within normal limits Changed to Cogentin 0.5 mg PRN (not sure if dystonic reaction was from Haldol received in the ED or from Geodon or just combination, but has not returned) -reviewed ED note; reviewed health technical writer's notes from past admission In the past, these meds partially stabilized manic behaviors but did not resolve delusions: -Depakote ER 250 mg in the morning and 1000 mg q.h.s. -Risperdal 4 mg -Geodon: not effective Med trial Zyprexa: ?partially helpful as prn. Patient educated on: diagnosis and medication risk/benefits Informed Consent: does not understand and further education needed Reason for contiued inpatient stay Substantial Risk for: harm to self, harm to others and inability to function Time Spent With Patient Time: Total time managing care of this patient today ____ minutes.
[2022-11-15 17:18] VITALS: BP 140/75; PULSE 98; TEMP 37.5; O2SAT 98
[2022-11-15] MEDS: OLANZapine 10 MG TABLET 30 MG PO (19:42)
[2022-11-15] MEDS: Zolpidem Tartrate 5 MG TABLET PO (19:42)
[2022-11-15] MEDS: clonazePAM 1 MG TABLET PO (19:42)
[2022-11-15] MEDS: Lithium Carbonate 300 MG CAPSULE 1200 MG PO (19:43)
[2022-11-16 06:00] VITALS: BP 126/82; PULSE 100; RESP 14; TEMP 36.6; O2SAT 100
[2022-11-16 07:00] VITALS: BMI 23.3
[2022-11-16] MEDS: clonazePAM 0.5 MG TABLET PO ×2 (08:35→13:21)
[2022-11-16] MEDS: Thiamine HCL 100 MG TABLET PO (08:35)
[2022-11-16] MEDS: Omeprazole 20 MG CAPSULE.DR PO (08:35)
[2022-11-16] MEDS: OLANZapine 10 MG TABLET PO (08:35)
[2022-11-16] MEDS: Folic Acid 1 MG TABLET PO (08:35)
[2022-11-16] MEDS: Multivitamin TABLET 1 TAB PO (08:35)
[2022-11-16 17:49] VITALS: BP 116/67; PULSE 97; TEMP 36.9; O2SAT 98
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
[2022-11-16] MEDS: clonazePAM 1 MG TABLET PO (19:38)
[2022-11-16] MEDS: Lithium Carbonate 300 MG CAPSULE 1200 MG PO (19:38)
--- NOTE | 2022-11-16 19:40 | PC.NURSE ---
Addendum entered by Adan Rendon RN 11/16/22 23:09: Pt changed his mind and took night meds. Original Note: Pt verbalized around 6pm that he was not going to take night time meds. He turned around later and requested to take klonopin and lithium refusing ambien and zyprexa. Provider made aware.
[2022-11-16] MEDS: OLANZapine ODT 10 MG TAB.RAPDIS 30 MG TRANSLINGU (20:01)
[2022-11-16] MEDS: Zolpidem Tartrate 5 MG TABLET PO (20:08)
[2022-11-17 06:00] VITALS: BP 118/74; PULSE 105; RESP 16; TEMP 36.6; O2SAT 98
[2022-11-17] MEDS: Omeprazole 20 MG CAPSULE.DR PO (06:20)
[2022-11-17] MEDS: clonazePAM 0.5 MG TABLET PO ×2 (08:36→13:15)
[2022-11-17] MEDS: Multivitamin TABLET 1 TAB PO (08:36)
[2022-11-17] MEDS: Folic Acid 1 MG TABLET PO (08:36)
[2022-11-17] MEDS: OLANZapine ODT 10 MG TAB.RAPDIS TRANSLINGU (08:36)
[2022-11-17] MEDS: Thiamine HCL 100 MG TABLET PO (08:36)
[2022-11-17 13:53] LABS: Lithium 0.31 mmol/L (0.60-1.20)
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
[2022-11-17 18:00] VITALS: BP 126/70; PULSE 88; RESP 14; TEMP 36.4
[2022-11-17] MEDS: OLANZapine ODT 10 MG TAB.RAPDIS 30 MG TRANSLINGU (20:39)
[2022-11-17] MEDS: Melatonin 3 MG TABLET 9 MG PO (20:40)
[2022-11-17] MEDS: Lithium Carbonate 300 MG CAPSULE 1200 MG PO (20:40)
[2022-11-17] MEDS: clonazePAM 1 MG TABLET PO (20:40)
[2022-11-18 08:17] VITALS: BP 131/82; PULSE 114; RESP 18; TEMP 36.8; O2SAT 98
[2022-11-18] MEDS: Omeprazole 20 MG CAPSULE.DR PO (08:19)
[2022-11-18] MEDS: Folic Acid 1 MG TABLET PO (08:19)
[2022-11-18] MEDS: OLANZapine ODT 10 MG TAB.RAPDIS TRANSLINGU (08:19)
[2022-11-18] MEDS: Multivitamin TABLET 1 TAB PO (08:19)
[2022-11-18] MEDS: Thiamine HCL 100 MG TABLET PO (08:19)
[2022-11-18] MEDS: clonazePAM 0.5 MG TABLET PO ×2 (08:19→13:42)
--- NOTE | 2022-11-18 12:00 | P.PNPSI_ITS ---
Subjective Subjective Date of Service: 11/18/22 Reason For Visit: chauncey Interim History: Met with patient; discussed with RN Patient continues to present as paranoid. Patient reports he is feeling happy today. He however appeared intense and serious. He kept referring to this entry writer and answering with yes sir . Out of respect for authority. He denied hallucinations. He continues paranoid per staff. He is somewhat intrusive. Concern for patient cheeking medications, but RN reports doing mouth checks. Mental Status Exam Mental Status Exam Narrative: Pt is alert and oriented; behavior is manic, predominantly guarded and disorganized; can be cooperative and calm at times; dressed in casual attire with long, unkempt, glasses,; with adequate hygiene; mood is described good...i 'm happy however affect is anxious and? constricted; eye contact appropriate to glaring; Speech is normal rate, volume; normal prosody; not pressured; psychomotor agitation present; thought process is goal directed; Thought content is with paranoid, persecutory delusional and grandiose thoughts; can be pertinent to relevant topics when asked;? denies any SI/HI.? Denies AVH however is internally preoccupied at times. ?Patients insight and judgment are impaired Patient Appearance: Unkempt Patient Orientation: Person and Place Level of Consciousness: Alert Patient Behavior: Talkative and Distractible Mood Description: Hostile and Labile Affect Description: Hostile and Labile Patient Cognition Impaired: Yes Ability to Follow Directions: Fair Speech Pattern: Spontaneous Speech Memory Description: Remote Impaired and Episodic Impaired Diagnostics Vital Signs (24Hr): Vital Signs - 24 hr 11/18/22 08:17 11/18/22 18:00 Temperature 98.2 F 98.3 F Pulse Rate 114 H 120 H Respiratory Rate 18 Blood Pressure 131/82 132/83 Pulse Oximetry 98 98 Oxygen Delivery Method Room Air Room Air BMI result Body Mass Index 23.3 Labs 10/27/22 22:03 11/08/22 08:34 Labs: Laboratory Results - last 48 hr 11/17/22 13:35 [place] 0.31 L Medications Medications Current Medications Acetaminophen (Acetaminophen 325 Mg Tablet) 650 mg PO Q6H PRN PRN Reason: Headache/Pain Mild Scale (1-3) Last Admin: 11/13/22 08:19 Dose: 650 mg Al Hydroxide/Mg Hydroxide (Magnesium Hydrox/Alum Hydrox 30 Ml Oral.Susp) 30 ml PO Q6H PRN PRN Reason: Heartburn/Nausea Last Admin: 11/11/22 17:24 Dose: 30 ml Benztropine Mesylate (Benztropine Mesylate 0.5 Mg Tablet) 0.5 mg PO TID PRN PRN Reason: Extrapyramidal Effects Chlorpromazine HCl (Chlorpromazine Hcl 25 Mg Tablet) 50 mg PO Q4H PRN PRN Reason: anxiety/agitation Last Admin: 11/18/22 16:15 Dose: 50 mg Clonazepam (Clonazepam 0.5 Mg Tablet) 0.5 mg PO BID@0900,1400 [facility] Last Admin: 11/18/22 13:42 Dose: 0.5 mg Clonazepam (Clonazepam 1 Mg Tablet) 1 mg PO BEDTIME [facility] Last Admin: 11/18/22 21:19 Dose: 1 mg Folic Acid (Folic Acid 1 Mg Tablet) 1 mg PO DAILY [facility] Last Admin: 11/18/22 08:19 Dose: 1 mg [place] Carbonate ([place] Carbonate 300 Mg Capsule) 1,200 mg PO BEDTIME [facility] Last Admin: 11/18/22 21:19 Dose: 1,200 mg Magnesium Hydroxide (Milk Of Magnesia 30 Ml Oral.Susp) 30 ml PO DAILY PRN PRN Reason: Constipation Melatonin (Melatonin 3 Mg Tablet) 9 mg PO BEDTIME PRN PRN Reason: Insomnia Last Admin: 11/18/22 23:53 Dose: 9 mg Multivitamins/Vitamin C (Multivitamin Tablet) 1 tab PO DAILY [facility] Last Admin: 11/18/22 08:19 Dose: 1 tab Nicotine Polacrilex (Nicotine Polacrilex 2 Mg Gum) 4 mg BUCCAL Q2H PRN PRN Reason: Nicotine Cravings Last Admin: 11/12/22 16:10 Dose: 4 mg Olanzapine (Olanzapine Odt 10 Mg Tab.Rapdis) 30 mg TRANSLINGU BEDTIME [facility] Last Admin: 11/18/22 21:19 Dose: 30 mg Olanzapine (Olanzapine Odt 10 Mg Tab.Rapdis) 10 mg TRANSLINGU DAILY [facility] Last Admin: 11/18/22 08:19 Dose: 10 mg Omeprazole (Omeprazole 20 Mg Capsule.Dr) 20 mg PO DAILY@0630 [facility] Last Admin: 11/18/22 08:19 Dose: 20 mg Thiamine HCl (Thiamine Hcl 100 Mg Tablet) 100 mg PO DAILY [facility] Last Admin: 11/18/22 08:19 Dose: 100 mg Allergies Allergies Allergy/AdvReac Type Severity Reaction Status Date / Time No Known Allergies Allergy Verified 02/22/22 16:29 Assessment & Plan Assessment & Plan (1) Schizoaffective disorder, bipolar type: Status: Acute Code(s): F25.0 - Schizoaffective disorder, bipolar type (2) Chronic post-traumatic stress disorder (PTSD): Status: Acute Code(s): F43.12 - Post-traumatic stress disorder, chronic (3) Alcohol abuse: Status: Acute Code(s): F10.10 - Alcohol abuse, uncomplicated Plan Patient is a 22-year-old male with history of bipolar disorder type 1, alcohol abuse/dependence, PTSD discharged from 05/04/2022 and here for his 3rd inpatient admission in less than 1 year,, who Self presents for paranoid ideations that he is being followed by people who want to harm him in the face of having gone off his medication this past summer and relapsing with alcohol.? In the ED patient disrobing, disorganized; received Haldol for p.r.n. received Haldol as a p.r.n. -patient has history of severe manic episodes with significant psychotic features and extensive delusional beliefs that render him unable to function.? Patient also has PTSD and seems to frequently looked alcohol as a coping strategy.? On medication symptoms significantly decrease but it has never been clear whether patient has insight 10/30 patient remains with odd behavior; he is guarded and does not reveal much; remains internally preoccupied 10/31 patient psychotic with paranoid delusions.? Professor In Family Studies reassess is diagnosis and sees that patient has psychotic symptoms even when not? manic and will change diagnosis to schizoaffective.? Patient says it is okay for entry writer to adjust medications and that he will take whatever entry writer thinks past 11/01 remains with severe paranoid delusions 11/02 patient sleeping and hypomanic; remains with intense paranoid delusions including feeling that there are peers on the unit conspiring to intimidate him; patient does agree that he seems to run into trouble when he stops taking his medications, however no insight into psychiatric illness 11/03 paranoid delusions and manic behaviors persist; patient is paranoid making accusations against multiple peers thinking there conspiring against him.? Patient has no insight.? Labs returned today showing subtherapeutic lithium dose so will increase.? Patient put in another 3 day.? However he remains paranoid and accusatory to other peers, provoking them and at this time is unsafe to return to the community 11/04 remains with paranoid delusions;?Discussed case with nursing; met with patient; reviewed vitals and tachycardic 11/05 no change; continues to have paranoid and delusional thoughts; unwanted approaches to other peers on the unit who are afraid of him due to his behaviors.? Continues to insist that multiple people on the unit and in the community have plans to harm him and that he is afraid.? At this time entry writer is concerned for his safety.? [place] dose recently increased and needs time to become therapeutic.? Will continue to assess. 11/06 patient remains with severe paranoid and grandiose delusions; he thinks that peers are conspiring against him and says he is afraid for his safety; remains without any insight.? Says he does not want to take Geodon or lithium.? Patient is accusatory and sometimes aggressively posturing towards staff and peers.? Patient is at risk for inciting pre-emptive or retaliatory aggression from others he is accusing and challenging.? Professor In Family Studies and team agreed that patient is not safe for discharge to the community.? Discussed with team who agree that while sometimes patients chauncey can be addressed with medication, medications have yet to significantly erode paranoid delusions; however patient is not open to medication changes at this time. 11/07 severe, paranoid persecutory delusions, just during provoking to others whom he delusionally believes are conspiring against him.? Refused medications last night, though took them today. 11/08 remains with paranoid delusions, but did sleep last night. Agrees to trial of Zyprexa (will go with this med since some partial response in past and may have gotten dystonia from typical antipsychotic in ED) 11/13 remains with paranoid delusions, grandiose, or provocative towards peers whom he believes are conspiring against him. 11/14 remains with paranoid delusions, thinks people on the unit are trying to kill him. 11/15 no reduction in symptoms; will increase total daily Zyprexa dose to 40 mg.? Literature shows that typically if an antipsychotic is going to work halfway for a person, it affords some reduction in symptoms early on even within a day or two; if patient's psychotic symptoms do not improve soon, will conclude that Zyprexa is not effective.? Clozapine remains the preferred medication however patient currently refuses.? Some concern for dystonic reaction from Haldol received in the emergency room;? will consider alternative 1st generation antipsychotics as well. -patient's mother is worried about vitamin-D and vitamin B deficiency; while these are rare and even less likely to have a clinical significance, will order lab work as patient agrees. 11/16 pt opening up about hx of trauma; unable to make connection with current paranoid delusion. Pt says he hates medications and thinks they are hurting him. Nursing concerned that patient is trying to check medication; will switch to Zydis 11/17 little less provocative towards peers but remains with florid paranoid and grandiose delusions. Last night patient initially refused his medications, but then later decided to take them. Today patient said he is trying to decide whether or not he should stop taking all the medications and challenge this entry writer in court or just continue taking medications, be in compliance and discharge.? He says he does not think the meds are working; does not think he needs them... 11/18: Continue current tx plan. Professor In Family Studies has concerns that patient is not taking medication as prescribed.? He consistently says things like he does not like them, thinks they are bad for him, does not want them.? Nursing concerned that patient trying to cheek his medication, prompting entry writer to change Zyprexa to oral disintegrating tablet Zydis, which is much more quickly bioavailable.? Also his lithium level on 11/17 is subtherapeutic at 0.31 And it is lower than it was when patient was taking a lower dose of lithium measured on 11/03 (0.46)implying that patient has been avoiding taking this medication consistently. Pt taking total daily [place] dose of 900mg. [place] level 0.46 on 11/03/22 Pt taking total daily [place] dose of 1200mg. [place] level 0.31 on 11/17/22 At this point entry writer still does not know if these medications can be effective as it seems likely patient is not adhering with regimen; this also makes it hard to know if they should be titrated (given risk of lithium toxicity). And Even while he's getting some amount of medication in him, he remains with florid paranoid, persecutory and grandiose delusions and mistakenly thinks others are conspiring and threatening to harm him. Patient has little to no insight into his psychiatric illness.? Professor In Family Studies has no reason to believe that patient will continue taking medications on discharge; almost daily, he expresses his belief that the medications are bad for him and he does not need them...and, it's questionable that he's fully taking them even now, despite having 24/ supervision and redirection from trained staff.? If patient to discharge at this time, he would remain unsafe in the community. Plan: Petition court for involuntary commitment and medication Q 15 minute checks add melatonin (at pt's request) GILSON Serna; pt does not like (did help sleep however) Discontinue trazodone; patient says seems to have activated him [place] level: 0.31 (subtherapeutic despite being therapeutic at 0.6 6 at same dose). Continue ZYDIS 10 mg daily (switched to zydis out of concern for cheeking meds) Continue ZYIDIS 30mg qhs . Continue lithium ER 1200mg qhs (this does was subtherapeutic but said nauseus at higher dose); BUN creatinine, TSH, lytes within normal limits Changed to Cogentin 0.5 mg PRN (not sure if dystonic reaction was from Haldol received in the ED or from Geodon or just combination, but has not returned) -reviewed ED note; reviewed entry writer's notes from past admission In the past, these meds partially stabilized manic behaviors but did not resolve delusions: -Depakote ER 250 mg in the morning and 1000 mg q.h.s. -Risperdal 4 mg -Geodon: not effective Med trial Zyprexa: ?partially helpful as prn. Reason for contiued inpatient stay Substantial Risk for: inability to function and rapid decompensation Time Spent With Patient Time: Total time managing care of this patient today ____ minutes.
[2022-11-18] MEDS: chlorproMAZINE HCl 25 MG TABLET 50 MG PO (16:15)
[2022-11-18 18:00] VITALS: BP 132/83; PULSE 120; TEMP 36.8; O2SAT 98
[2022-11-18] MEDS: Lithium Carbonate 300 MG CAPSULE 1200 MG PO (21:19)
[2022-11-18] MEDS: OLANZapine ODT 10 MG TAB.RAPDIS 30 MG TRANSLINGU (21:19)
[2022-11-18] MEDS: clonazePAM 1 MG TABLET PO (21:19)
--- NOTE | 2022-11-18 23:21 | PC.NURSE ---
Patient was pleasant with this flex o writer operator, compliant with medications and meals. He asked permission to play one song in the art group and said it was a song he personally wrote. Patient seemed pleased with the applause he received from other patients.
[2022-11-18] MEDS: Melatonin 3 MG TABLET 9 MG PO (23:53)
[2022-11-19 08:16] VITALS: BP 124/67; PULSE 104; RESP 18; TEMP 36.6; O2SAT 98
[2022-11-19] MEDS: Omeprazole 20 MG CAPSULE.DR PO (09:16)
[2022-11-19] MEDS: OLANZapine ODT 10 MG TAB.RAPDIS TRANSLINGU (09:16)
[2022-11-19] MEDS: Folic Acid 1 MG TABLET PO (09:16)
[2022-11-19] MEDS: Thiamine HCL 100 MG TABLET PO (09:17)
[2022-11-19] MEDS: clonazePAM 0.5 MG TABLET PO ×2 (09:17→14:22)
[2022-11-19] MEDS: Multivitamin TABLET 1 TAB PO (09:21)
--- NOTE | 2022-11-19 15:00 | HO.PSYCHPN ---
Subjective Subjective Date of Service: 11/20/22 Reason For Visit: chauncey Interim History: Met with patient; discussed with RN Patient has been more relaxed than other days. He says the medications have been helpfu; He denies side effects. His affect continues to be guarded. Patient continues to present as paranoid. Patient reports he is feeling happy today. He however appeared intense and serious. He kept referring to this insurance underwriter sales and answering with yes sir . Out of respect for authority. He denied hallucinations. He continues paranoid per staff. He is somewhat intrusive. Concern for patient cheeking medications, but RN reports doing mouth checks. Mental Status Exam Mental Status Exam Narrative: Pt is alert and oriented; behavior is manic, predominantly guarded and disorganized; can be cooperative and calm at times; dressed in casual attire with long, unkempt, glasses,; with adequate hygiene; mood is described good...i'm happy however affect is anxious and? constricted; eye contact appropriate to glaring; Speech is normal rate, volume; normal prosody; not pressured; psychomotor agitation present; thought process is goal directed; Thought content is with paranoid, persecutory delusional and grandiose thoughts; can be pertinent to relevant topics when asked;? denies any SI/HI.? Denies AVH however is internally preoccupied at times. ?Patients insight and judgment are impaired Patient Appearance: Unkempt Patient Orientation: Person and Place Level of Consciousness: Alert Patient Behavior: Talkative and Distractible Mood Description: Hostile and Labile Affect Description: Hostile and Labile Patient Cognition Impaired: Yes Ability to Follow Directions: Fair Speech Pattern: Spontaneous Speech Memory Description: Remote Impaired and Episodic Impaired Diagnostics Vital Signs (24Hr): Vital Signs - 24 hr 11/19/22 08:16 11/19/22 17:25 Temperature 97.8 F 97.0 F Pulse Rate 104 H 104 H Respiratory Rate 18 Blood Pressure 124/67 121/79 Pulse Oximetry 98 98 Oxygen Delivery Method Room Air Room Air BMI result Body Mass Index 23.3 Labs 10/27/22 22:03 11/08/22 08:34 Medications Medications Current Medications Acetaminophen (Acetaminophen 325 Mg Tablet) 650 mg PO Q6H PRN PRN Reason: Headache/Pain Mild Scale (1-3) Last Admin: 11/13/22 08:19 Dose: 650 mg Al Hydroxide/Mg Hydroxide (Magnesium Hydrox/Alum Hydrox 30 Ml Oral.Susp) 30 ml PO Q6H PRN PRN Reason: Heartburn/Nausea Last Admin: 11/11/22 17:24 Dose: 30 ml Benztropine Mesylate (Benztropine Mesylate 0.5 Mg Tablet) 0.5 mg PO TID PRN PRN Reason: Extrapyramidal Effects Chlorpromazine HCl (Chlorpromazine Hcl 25 Mg Tablet) 50 mg PO Q4H PRN PRN Reason: anxiety/agitation Last Admin: 11/18/22 16:15 Dose: 50 mg Clonazepam (Clonazepam 0.5 Mg Tablet) 0.5 mg PO BID@0900,1400 [facility] Last Admin: 11/19/22 14:22 Dose: 0.5 mg Clonazepam (Clonazepam 1 Mg Tablet) 1 mg PO BEDTIME [facility] Last Admin: 11/19/22 20:15 Dose: 1 mg Folic Acid (Folic Acid 1 Mg Tablet) 1 mg PO DAILY [facility] Last Admin: 11/19/22 09:16 Dose: 1 mg [place] Carbonate ([place] Carbonate 300 Mg Capsule) 1,200 mg PO BEDTIME [facility] Last Admin: 11/19/22 20:15 Dose: 1,200 mg Magnesium Hydroxide (Milk Of Magnesia 30 Ml Oral.Susp) 30 ml PO DAILY PRN PRN Reason: Constipation Melatonin (Melatonin 3 Mg Tablet) 9 mg PO BEDTIME PRN PRN Reason: Insomnia Last Admin: 11/19/22 22:04 Dose: 9 mg Multivitamins/Vitamin C (Multivitamin Tablet) 1 tab PO DAILY [facility] Last Admin: 11/19/22 09:21 Dose: 1 tab Nicotine Polacrilex (Nicotine Polacrilex 2 Mg Gum) 4 mg BUCCAL Q2H PRN PRN Reason: Nicotine Cravings Last Admin: 11/12/22 16:10 Dose: 4 mg Olanzapine (Olanzapine Odt 10 Mg Tab.Rapdis) 30 mg TRANSLINGU BEDTIME [facility] Last Admin: 11/19/22 20:14 Dose: 30 mg Olanzapine (Olanzapine Odt 10 Mg Tab.Rapdis) 10 mg TRANSLINGU DAILY [facility] Last Admin: 11/19/22 09:16 Dose: 10 mg Omeprazole (Omeprazole 20 Mg Capsule.Dr) 20 mg PO DAILY@0630 [facility] Last Admin: 11/19/22 09:16 Dose: 20 mg Thiamine HCl (Thiamine Hcl 100 Mg Tablet) 100 mg PO DAILY [facility] Last Admin: 11/19/22 09:17 Dose: 100 mg Allergies Allergies Allergy/AdvReac Type Severity Reaction Status Date / Time No Known Allergies Allergy Verified 02/22/22 16:29 Assessment & Plan Assessment & Plan (1) Schizoaffective disorder, bipolar type: Status: Acute Code(s): F25.0 - Schizoaffective disorder, bipolar type (2) Chronic post-traumatic stress disorder (PTSD): Status: Acute Code(s): F43.12 - Post-traumatic stress disorder, chronic (3) Alcohol abuse: Status: Acute Code(s): F10.10 - Alcohol abuse, uncomplicated Plan Patient is a 22-year-old male with history of bipolar disorder type 1, alcohol abuse/dependence, PTSD discharged from 05/04/2022 and here for his 3rd inpatient admission in less than 1 year,, who Self presents for paranoid ideations that he is being followed by people who want to harm him in the face of having gone off his medication this past summer and relapsing with alcohol.? In the ED patient disrobing, disorganized; received Haldol for p.r.n. received Haldol as a p.r.n. -patient has history of severe manic episodes with significant psychotic features and extensive delusional beliefs that render him unable to function.? Patient also has PTSD and seems to frequently looked alcohol as a coping strategy.? On medication symptoms significantly decrease but it has never been clear whether patient has insight 10/30 patient remains with odd behavior; he is guarded and does not reveal much; remains internally preoccupied 10/31 patient psychotic with paranoid delusions.? Legal Assistant reassess is diagnosis and sees that patient has psychotic symptoms even when not? manic and will change diagnosis to schizoaffective.? Patient says it is okay for insurance underwriter sales to adjust medications and that he will take whatever insurance underwriter sales thinks past 11/01 remains with severe paranoid delusions 11/02 patient sleeping and hypomanic; remains with intense paranoid delusions including feeling that there are peers on the unit conspiring to intimidate him; patient does agree that he seems to run into trouble when he stops taking his medications, however no insight into psychiatric illness 11/03 paranoid delusions and manic behaviors persist; patient is paranoid making accusations against multiple peers thinking there conspiring against him.? Patient has no insight.? Labs returned today showing subtherapeutic lithium dose so will increase.? Patient put in another 3 day.? However he remains paranoid and accusatory to other peers, provoking them and at this time is unsafe to return to the community 11/04 remains with paranoid delusions;?Discussed case with nursing; met with patient; reviewed vitals and tachycardic 11/05 no change; continues to have paranoid and delusional thoughts; unwanted approaches to other peers on the unit who are afraid of him due to his behaviors.? Continues to insist that multiple people on the unit and in the community have plans to harm him and that he is afraid.? At this time insurance underwriter sales is concerned for his safety.? [place] dose recently increased and needs time to become therapeutic.? Will continue to assess. 11/06 patient remains with severe paranoid and grandiose delusions; he thinks that peers are conspiring against him and says he is afraid for his safety; remains without any insight.? Says he does not want to take Geodon or lithium.? Patient is accusatory and sometimes aggressively posturing towards staff and peers.? Patient is at risk for inciting pre-emptive or retaliatory aggression from others he is accusing and challenging.? Legal Assistant and team agreed that patient is not safe for discharge to the community.? Discussed with team who agree that while sometimes patients chauncey can be addressed with medication, medications have yet to significantly erode paranoid delusions; however patient is not open to medication changes at this time. 11/07 severe, paranoid persecutory delusions, just during provoking to others whom he delusionally believes are conspiring against him.? Refused medications last night, though took them today. 11/08 remains with paranoid delusions, but did sleep last night. Agrees to trial of Zyprexa (will go with this med since some partial response in past and may have gotten dystonia from typical antipsychotic in ED) 11/13 remains with paranoid delusions, grandiose, or provocative towards peers whom he believes are conspiring against him. 11/14 remains with paranoid delusions, thinks people on the unit are trying to kill him. 11/15 no reduction in symptoms; will increase total daily Zyprexa dose to 40 mg.? Literature shows that typically if an antipsychotic is going to work fpc for a person, it affords some reduction in symptoms early on even within a day or two; if patient's psychotic symptoms do not improve soon, will conclude that Zyprexa is not effective.? Clozapine remains the preferred medication however patient currently refuses.? Some concern for dystonic reaction from Haldol received in the emergency room;? will consider alternative 1st generation antipsychotics as well. -patient's mother is worried about vitamin-D and vitamin B deficiency; while these are rare and even less likely to have a clinical significance, will order lab work as patient agrees. 11/16 pt opening up about hx of trauma; unable to make connection with current paranoid delusion. Pt says he hates medications and thinks they are hurting him. Nursing concerned that patient is trying to check medication; will switch to Zydis 11/17 little less provocative towards peers but remains with florid paranoid and grandiose delusions. Last night patient initially refused his medications, but then later decided to take them. Today patient said he is trying to decide whether or not he should stop taking all the medications and challenge this insurance underwriter sales in court or just continue taking medications, be in compliance and discharge.? He says he does not think the meds are working; does not think he needs them... 11/18: Continue current tx plan. Legal Assistant has concerns that patient is not taking medication as prescribed.? He consistently says things like he does not like them, thinks they are bad for him, does not want them.? Nursing concerned that patient trying to cheek his medication, prompting insurance underwriter sales to change Zyprexa to oral disintegrating tablet Zydis, which is much more quickly bioavailable.? Also his lithium level on 11/17 is subtherapeutic at 0.31 And it is lower than it was when patient was taking a lower dose of lithium measured on 11/03 (0.46)implying that patient has been avoiding taking this medication consistently. Pt taking total daily [place] dose of 900mg. [place] level 0.46 on 11/03/22 Pt taking total daily [place] dose of 1200mg. [place] level 0.31 on 11/17/22 At this point insurance underwriter sales still does not know if these medications can be effective as it seems likely patient is not adhering with regimen; this also makes it hard to know if they should be titrated (given risk of lithium toxicity). And Even while he's getting some amount of medication in him, he remains with florid paranoid, persecutory and grandiose delusions and mistakenly thinks others are conspiring and threatening to harm him. Patient has little to no insight into his psychiatric illness.? Legal Assistant has no reason to believe that patient will continue taking medications on discharge; almost daily, he expresses his belief that the medications are bad for him and he does not need them...and, it's questionable that he's fully taking them even now, despite having 24/ supervision and redirection from trained staff.? If patient to discharge at this time, he would remain unsafe in the community. Plan: Petition court for involuntary commitment and medication Q 15 minute checks add melatonin (at pt's request) GILSON Serna; pt does not like (did help sleep however) Discontinue trazodone; patient says seems to have activated him [place] level: 0.31 (subtherapeutic despite being therapeutic at 0.6 6 at same dose). Continue ZYDIS 10 mg daily (switched to zydis out of concern for cheeking meds) Continue ZYIDIS 30mg qhs . Continue lithium ER 1200mg qhs (this does was subtherapeutic but said nauseus at higher dose); BUN creatinine, TSH, lytes within normal limits Changed to Cogentin 0.5 mg PRN (not sure if dystonic reaction was from Haldol received in the ED or from Geodon or just combination, but has not returned) -reviewed ED note; reviewed insurance underwriter sales's notes from past admission In the past, these meds partially stabilized manic behaviors but did not resolve delusions: -Depakote ER 250 mg in the morning and 1000 mg q.h.s. -Risperdal 4 mg -Geodon: not effective Med trial Zyprexa: ?partially helpful as prn. Reason for contiued inpatient stay Substantial Risk for: harm to self and inability to function Time Spent With Patient Time: Total time managing care of this patient today ____ minutes.
[2022-11-19 17:25] VITALS: BP 121/79; PULSE 104; TEMP 36.1; O2SAT 98
[2022-11-19] MEDS: OLANZapine ODT 10 MG TAB.RAPDIS 30 MG TRANSLINGU (20:14)
[2022-11-19] MEDS: Lithium Carbonate 300 MG CAPSULE 1200 MG PO (20:15)
[2022-11-19] MEDS: clonazePAM 1 MG TABLET PO (20:15)
[2022-11-19] MEDS: Melatonin 3 MG TABLET 9 MG PO (22:04)
[2022-11-20 06:00] VITALS: BP 138/73; PULSE 120; RESP 16; TEMP 37.1; O2SAT 96
[2022-11-20] MEDS: Omeprazole 20 MG CAPSULE.DR PO (06:48)
[2022-11-20] MEDS: Multivitamin TABLET 1 TAB PO (08:45)
[2022-11-20] MEDS: OLANZapine ODT 10 MG TAB.RAPDIS TRANSLINGU (08:45)
[2022-11-20] MEDS: clonazePAM 0.5 MG TABLET PO ×2 (08:45→13:20)
[2022-11-20] MEDS: Thiamine HCL 100 MG TABLET PO (08:45)
[2022-11-20] MEDS: Folic Acid 1 MG TABLET PO (08:45)
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
[2022-11-20 18:00] VITALS: BP 128/78; PULSE 86; RESP 14; TEMP 36.1
[2022-11-20] MEDS: Lithium Carbonate 300 MG CAPSULE 1200 MG PO (20:17)
[2022-11-20] MEDS: OLANZapine ODT 10 MG TAB.RAPDIS 30 MG TRANSLINGU (20:18)
[2022-11-20] MEDS: clonazePAM 1 MG TABLET PO (20:18)
[2022-11-21 06:00] VITALS: BP 133/69; PULSE 99; RESP 16; TEMP 37.1; O2SAT 98
[2022-11-21] MEDS: Multivitamin TABLET 1 TAB PO (08:45)
[2022-11-21] MEDS: clonazePAM 0.5 MG TABLET PO ×2 (08:45→14:55)
[2022-11-21] MEDS: Thiamine HCL 100 MG TABLET PO (08:45)
[2022-11-21] MEDS: Omeprazole 20 MG CAPSULE.DR PO (08:45)
[2022-11-21] MEDS: Folic Acid 1 MG TABLET PO (08:46)
[2022-11-21] MEDS: OLANZapine ODT 10 MG TAB.RAPDIS TRANSLINGU (08:46)
--- NOTE | 2022-11-21 10:19 | HO.PSYCHPN ---
Subjective Subjective Date of Service: 11/21/22 Reason For Visit: chauncey Interim History: Met with patient; discussed with team Patient little more calm on the milieu. Daily letters to Francesco Merlos. Interacts with remote mortgage underwriter in an overly formal way, calling remote mortgage underwriter and and jesus. He denies that there have been any current threats made from peers. Says he is sleeping better and reiterates he hopes to go home next week. Mental Status Exam Mental Status Exam Narrative: Pt is alert and oriented; behavior is manic, predominantly agitated, accusatory, guarded and disorganized; can be cooperative and calm at times; dressed in casual attire with long, unkempt, glasses,; with adequate hygiene; mood is described It's going and affect is anxious and constricted; eye contact appropriate to glaring; Speech is normal rate, volume; normal prosody; not pressured; psychomotor agitation present; thought process is goal directed; Thought content is with paranoid, persecutory delusional and grandiose thoughts; can be pertinent to relevant topics when asked; denies any SI/HI. Denies AVH however is internally preoccupied at times. Patients insight and judgment are impaired Diagnostics Vital Signs (24Hr): Vital Signs - 24 hr 11/20/22 18:00 11/21/22 06:00 Temperature 97 F 98.7 F Pulse Rate 86 99 Respiratory Rate 14 16 Blood Pressure 128/78 133/69 Pulse Oximetry 98 Oxygen Delivery Method Room Air BMI result Body Mass Index 23.3 Labs 10/27/22 22:03 11/08/22 08:34 Medications Medications Current Medications Acetaminophen (Acetaminophen 325 Mg Tablet) 650 mg PO Q6H PRN PRN Reason: Headache/Pain Mild Scale (1-3) Last Admin: 11/13/22 08:19 Dose: 650 mg Al Hydroxide/Mg Hydroxide (Magnesium Hydrox/Alum Hydrox 30 Ml Oral.Susp) 30 ml PO Q6H PRN PRN Reason: Heartburn/Nausea Last Admin: 11/11/22 17:24 Dose: 30 ml Benztropine Mesylate (Benztropine Mesylate 0.5 Mg Tablet) 0.5 mg PO TID PRN PRN Reason: Extrapyramidal Effects Chlorpromazine HCl (Chlorpromazine Hcl 25 Mg Tablet) 50 mg PO Q4H PRN PRN Reason: anxiety/agitation Last Admin: 11/18/22 16:15 Dose: 50 mg Clonazepam (Clonazepam 0.5 Mg Tablet) 0.5 mg PO BID@0900,1400 [facility] Last Admin: 11/21/22 08:45 Dose: 0.5 mg Clonazepam (Clonazepam 1 Mg Tablet) 1 mg PO BEDTIME [facility] Last Admin: 11/20/22 20:18 Dose: 1 mg Folic Acid (Folic Acid 1 Mg Tablet) 1 mg PO DAILY [facility] Last Admin: 11/21/22 08:46 Dose: 1 mg [place] Carbonate ([place] Carbonate 300 Mg Capsule) 1,200 mg PO BEDTIME [facility] Last Admin: 11/20/22 20:17 Dose: 1,200 mg Magnesium Hydroxide (Milk Of Magnesia 30 Ml Oral.Susp) 30 ml PO DAILY PRN PRN Reason: Constipation Melatonin (Melatonin 3 Mg Tablet) 9 mg PO BEDTIME PRN PRN Reason: Insomnia Last Admin: 11/19/22 22:04 Dose: 9 mg Multivitamins/Vitamin C (Multivitamin Tablet) 1 tab PO DAILY [facility] Last Admin: 11/21/22 08:45 Dose: 1 tab Nicotine Polacrilex (Nicotine Polacrilex 2 Mg Gum) 4 mg BUCCAL Q2H PRN PRN Reason: Nicotine Cravings Last Admin: 11/12/22 16:10 Dose: 4 mg Olanzapine (Olanzapine Odt 10 Mg Tab.Rapdis) 30 mg TRANSLINGU BEDTIME [facility] Last Admin: 11/20/22 20:18 Dose: 30 mg Olanzapine (Olanzapine Odt 10 Mg Tab.Rapdis) 10 mg TRANSLINGU DAILY [facility] Last Admin: 11/21/22 08:46 Dose: 10 mg Omeprazole (Omeprazole 20 Mg Capsule.Dr) 20 mg PO DAILY@0630 [facility] Last Admin: 11/21/22 08:45 Dose: 20 mg Thiamine HCl (Thiamine Hcl 100 Mg Tablet) 100 mg PO DAILY [facility] Last Admin: 11/21/22 08:45 Dose: 100 mg Allergies Allergies Allergy/AdvReac Type Severity Reaction Status Date / Time No Known Allergies Allergy Verified 02/22/22 16:29 Assessment & Plan Assessment & Plan (1) Schizoaffective disorder, bipolar type: Status: Acute Code(s): F25.0 - Schizoaffective disorder, bipolar type (2) Chronic post-traumatic stress disorder (PTSD): Status: Acute Code(s): F43.12 - Post-traumatic stress disorder, chronic (3) Alcohol abuse: Status: Acute Code(s): F10.10 - Alcohol abuse, uncomplicated Plan Patient is a 22-year-old male with history of bipolar disorder type 1, alcohol abuse/dependence, PTSD discharged from 05/04/2022 and here for his 3rd inpatient admission in less than 1 year,, who Self presents for paranoid ideations that he is being followed by people who want to harm him in the face of having gone off his medication this past summer and relapsing with alcohol.? In the ED patient disrobing, disorganized; received Haldol for p.r.n. received Haldol as a p.r.n. -patient has history of severe manic episodes with significant psychotic features and extensive delusional beliefs that render him unable to function.? Patient also has PTSD and seems to frequently looked alcohol as a coping strategy.? On medication symptoms significantly decrease but it has never been clear whether patient has insight 10/30 patient remains with odd behavior; he is guarded and does not reveal much; remains internally preoccupied 10/31 patient psychotic with paranoid delusions.? [employer] reassess is diagnosis and sees that patient has psychotic symptoms even when not? manic and will change diagnosis to schizoaffective.? Patient says it is okay for remote mortgage underwriter to adjust medications and that he will take whatever remote mortgage underwriter thinks past 11/01 remains with severe paranoid delusions 11/02 patient sleeping and hypomanic; remains with intense paranoid delusions including feeling that there are peers on the unit conspiring to intimidate him; patient does agree that he seems to run into trouble when he stops taking his medications, however no insight into psychiatric illness 11/03 paranoid delusions and manic behaviors persist; patient is paranoid making accusations against multiple peers thinking there conspiring against him.? Patient has no insight.? Labs returned today showing subtherapeutic lithium dose so will increase.? Patient put in another 3 day.? However he remains paranoid and accusatory to other peers, provoking them and at this time is unsafe to return to the community 11/04 remains with paranoid delusions;?Discussed case with nursing; met with patient; reviewed vitals and tachycardic 11/05 no change; continues to have paranoid and delusional thoughts; unwanted approaches to other peers on the unit who are afraid of him due to his behaviors.? Continues to insist that multiple people on the unit and in the community have plans to harm him and that he is afraid.? At this time remote mortgage underwriter is concerned for his safety.? [place] dose recently increased and needs time to become therapeutic.? Will continue to assess. 11/06 patient remains with severe paranoid and grandiose delusions; he thinks that peers are conspiring against him and says he is afraid for his safety; remains without any insight.? Says he does not want to take Geodon or lithium.? Patient is accusatory and sometimes aggressively posturing towards staff and peers.? Patient is at risk for inciting pre-emptive or retaliatory aggression from others he is accusing and challenging.? [employer] and team agreed that patient is not safe for discharge to the community.? Discussed with team who agree that while sometimes patients chauncey can be addressed with medication, medications have yet to significantly erode paranoid delusions; however patient is not open to medication changes at this time. 11/07 severe, paranoid persecutory delusions, just during provoking to others whom he delusionally believes are conspiring against him.? Refused medications last night, though took them today. 11/08 remains with paranoid delusions, but did sleep last night. Agrees to trial of Zyprexa (will go with this med since some partial response in past and may have gotten dystonia from typical antipsychotic in ED) 11/13 remains with paranoid delusions, grandiose, or provocative towards peers whom he believes are conspiring against him. 11/14 remains with paranoid delusions, thinks people on the unit are trying to kill him. 11/15 no reduction in symptoms; will increase total daily Zyprexa dose to 40 mg.? Literature shows that typically if an antipsychotic is going to work moth exterminator for a person, it affords some reduction in symptoms early on even within a day or two; if patient's psychotic symptoms do not improve soon, will conclude that Zyprexa is not effective.? Clozapine remains the preferred medication however patient currently refuses.? Some concern for dystonic reaction from Haldol received in the emergency room;? will consider alternative 1st generation antipsychotics as well. -patient's mother is worried about vitamin-D and vitamin B deficiency; while these are rare and even less likely to have a clinical significance, will order lab work as patient agrees. 11/16 pt opening up about hx of trauma; unable to make connection with current paranoid delusion. Pt says he hates medications and thinks they are hurting him. Nursing concerned that patient is trying to check medication; will switch to Zydis 11/17 little less provocative towards peers but remains with florid paranoid and grandiose delusions. Last night patient initially refused his medications, but then later decided to take them. Today patient said he is trying to decide whether or not he should stop taking all the medications and challenge this remote mortgage underwriter in court or just continue taking medications, be in compliance and discharge.? He says he does not think the meds are working; does not think he needs them... 11/18: Continue current tx plan. [employer] has concerns that patient is not taking medication as prescribed.? He consistently says things like he does not like them, thinks they are bad for him, does not want them.? Nursing concerned that patient trying to cheek his medication, prompting remote mortgage underwriter to change Zyprexa to oral disintegrating tablet Zydis, which is much more quickly bioavailable.? Also his lithium level on 11/17 is subtherapeutic at 0.31 And it is lower than it was when patient was taking a lower dose of lithium measured on 11/03 (0.46)implying that patient has been avoiding taking this medication consistently. Pt taking total daily [place] dose of 900mg. [place] level 0.46 on 11/03/22 Pt taking total daily [place] dose of 1200mg. [place] level 0.31 on 11/17/22 At this point remote mortgage underwriter still does not know if these medications can be effective as it seems likely patient is not adhering with regimen; this also makes it hard to know if they should be titrated (given risk of lithium toxicity). And Even while he's getting some amount of medication in him, he remains with florid paranoid, persecutory and grandiose delusions and mistakenly thinks others are conspiring and threatening to harm him. Patient has little to no insight into his psychiatric illness.? [employer] has no reason to believe that patient will continue taking medications on discharge; almost daily, he expresses his belief that the medications are bad for him and he does not need them...and, it's questionable that he's fully taking them even now, despite having 14/05 supervision and redirection from trained staff.? If patient to discharge at this time, he would remain unsafe in the community. 11/21 patient less agitated and provocative on the unit, more calm. He does not bring up paranoid delusional thinking unless it is solicited. That said, patient remains with paranoid and grandiose delusions. And remote mortgage underwriter thinks it is unlikely that patient will continue medications once discharged. Concern is that current medication regimen seems able to calm down the chauncey, and perhaps taken edge off some of the moment to moment paranoid thinking, however they do not seem to resolve the paranoid/grandiose delusions. Plan: Petition court for involuntary commitment and medication Q 15 minute checks add melatonin (at pt's request) DC Daphne; pt does not like (did help sleep however) Discontinue trazodone; patient says seems to have activated him [place] level: 0.31 (subtherapeutic despite being therapeutic at 0.6 6 at same dose). Continue ZYDIS 10 mg daily (switched to zydis out of concern for cheeking meds) Continue ZYIDIS 30mg qhs . Continue lithium ER 1200mg qhs (this does was subtherapeutic but said nauseus at higher dose); BUN creatinine, TSH, lytes within normal limits Changed to Cogentin 0.5 mg PRN (not sure if dystonic reaction was from Haldol received in the ED or from Geodon or just combination, but has not returned) -reviewed ED note; reviewed remote mortgage underwriter's notes from past admission In the past, these meds partially stabilized manic behaviors but did not resolve delusions: -Depakote ER 250 mg in the morning and 1000 mg q.h.s. -Risperdal 4 mg -Geodon: not effective Med trial Zyprexa: ?partially helpful as prn. Patient educated on: diagnosis and medication risk/benefits Informed Consent: does not understand and further education needed Reason for contiued inpatient stay Substantial Risk for: rapid decompensation Time Spent With Patient Time: Total time managing care of this patient today ____ minutes.
[2022-11-21 14:39] LABS: Vitamin B6 36.5 ng/mL (2.1-21.7)
[2022-11-21 16:43] LABS: Vitamin B1 41 nmol/L (8-30)
[2022-11-21 17:45] VITALS: BP 123/74; PULSE 106; TEMP 36
[2022-11-21] MEDS: Lithium Carbonate 300 MG CAPSULE 1200 MG PO (21:00)
[2022-11-21] MEDS: Melatonin 3 MG TABLET PO (21:01)
[2022-11-21] MEDS: OLANZapine ODT 10 MG TAB.RAPDIS 30 MG TRANSLINGU (21:01)
[2022-11-21] MEDS: clonazePAM 1 MG TABLET PO (21:05)
[2022-11-22 06:00] VITALS: BP 118/64; PULSE 89; RESP 16
[2022-11-22] MEDS: Multivitamin TABLET 1 TAB PO (07:55)
[2022-11-22] MEDS: Folic Acid 1 MG TABLET PO (07:55)
[2022-11-22] MEDS: OLANZapine ODT 10 MG TAB.RAPDIS TRANSLINGU (07:55)
[2022-11-22] MEDS: Thiamine HCL 100 MG TABLET PO (07:55)
[2022-11-22] MEDS: Omeprazole 20 MG CAPSULE.DR PO (07:55)
[2022-11-22] MEDS: clonazePAM 0.5 MG TABLET PO ×2 (07:55→13:54)
--- NOTE | 2022-11-22 12:18 | P.PNPSI_ITS ---
Subjective Subjective Date of Service: 11/22/22 Reason For Visit: chauncey Interim History: Met with patient; discussed with social work Patient still intermittently provocative to others, giving 1 peer the middle finger. Still refers to past bullying but says no new threats from peers; slept; more calm on unit overall Mental Status Exam Mental Status Exam Narrative: Pt is alert and oriented; behavior is more calm, more cooperative; still some accusatory remarks; odd excessive formality with life insurance underwriter yes sir ; dressed in casual attire with long, unkempt hair but adequate hygiene; glasses; mood is described good but affect is anxious and constricted; eye contact appropriate; Speech is normal rate, volume; normal prosody; not pressured; no psychomotor agitation; thought process is goal directed; Thought content is with paranoid, persecutory delusional and grandiose thoughts but expressing them much less; can be pertinent to relevant topics when asked; denies any SI/HI. Denies AVH however is internally preoccupied at times. Patients insight and judgment are impaired Diagnostics Vital Signs (24Hr): Vital Signs - 24 hr 11/21/22 17:45 11/22/22 06:00 Temperature 96.8 F Pulse Rate 106 H 89 Respiratory Rate 16 Blood Pressure 123/74 118/64 Oxygen Delivery Method Room Air BMI result Body Mass Index 23.3 Labs 10/27/22 22:03 11/08/22 08:34 Labs: Laboratory Results - last 48 hr 11/16/22 08:29 Vitamin B1 41 H Vitamin B6 36.5 H Medications Medications Current Medications Acetaminophen (Acetaminophen 325 Mg Tablet) 650 mg PO Q6H PRN PRN Reason: Headache/Pain Mild Scale (1-3) Last Admin: 11/13/22 08:19 Dose: 650 mg Al Hydroxide/Mg Hydroxide (Magnesium Hydrox/Alum Hydrox 30 Ml Oral.Susp) 30 ml PO Q6H PRN PRN Reason: Heartburn/Nausea Last Admin: 11/11/22 17:24 Dose: 30 ml Benztropine Mesylate (Benztropine Mesylate 0.5 Mg Tablet) 0.5 mg PO TID PRN PRN Reason: Extrapyramidal Effects Chlorpromazine HCl (Chlorpromazine Hcl 25 Mg Tablet) 50 mg PO Q4H PRN PRN Reason: anxiety/agitation Last Admin: 11/18/22 16:15 Dose: 50 mg Clonazepam (Clonazepam 0.5 Mg Tablet) 0.5 mg PO BID@0900,1400 [facility] Last Admin: 11/22/22 07:55 Dose: 0.5 mg Clonazepam (Clonazepam 1 Mg Tablet) 1 mg PO BEDTIME [facility] Last Admin: 11/21/22 21:05 Dose: 1 mg Folic Acid (Folic Acid 1 Mg Tablet) 1 mg PO DAILY [facility] Last Admin: 11/22/22 07:55 Dose: 1 mg [place] Carbonate ([place] Carbonate 300 Mg Capsule) 1,200 mg PO BEDTIME [facility] Last Admin: 11/21/22 21:00 Dose: 1,200 mg Magnesium Hydroxide (Milk Of Magnesia 30 Ml Oral.Susp) 30 ml PO DAILY PRN PRN Reason: Constipation Melatonin (Melatonin 3 Mg Tablet) 3 mg PO BEDTIME [facility] Last Admin: 11/21/22 21:01 Dose: 3 mg Melatonin (Melatonin 3 Mg Tablet) 3 mg PO BEDTIME PRN PRN Reason: continued insomnia Multivitamins/Vitamin C (Multivitamin Tablet) 1 tab PO DAILY [facility] Last Admin: 11/22/22 07:55 Dose: 1 tab Nicotine Polacrilex (Nicotine Polacrilex 2 Mg Gum) 4 mg BUCCAL Q2H PRN PRN Reason: Nicotine Cravings Last Admin: 11/12/22 16:10 Dose: 4 mg Olanzapine (Olanzapine Odt 10 Mg Tab.Rapdis) 30 mg TRANSLINGU BEDTIME [facility] Last Admin: 11/21/22 21:01 Dose: 30 mg Olanzapine (Olanzapine Odt 10 Mg Tab.Rapdis) 10 mg TRANSLINGU DAILY [facility] Last Admin: 11/22/22 07:55 Dose: 10 mg Omeprazole (Omeprazole 20 Mg Capsule.Dr) 20 mg PO DAILY@0630 [facility] Last Admin: 11/22/22 07:55 Dose: 20 mg Thiamine HCl (Thiamine Hcl 100 Mg Tablet) 100 mg PO DAILY [facility] Last Admin: 11/22/22 07:55 Dose: 100 mg Allergies Allergies Allergy/AdvReac Type Severity Reaction Status Date / Time No Known Allergies Allergy Verified 02/22/22 16:29 Assessment & Plan Assessment & Plan (1) Schizoaffective disorder, bipolar type: Status: Acute Code(s): F25.0 - Schizoaffective disorder, bipolar type (2) Chronic post-traumatic stress disorder (PTSD): Status: Acute Code(s): F43.12 - Post-traumatic stress disorder, chronic (3) Alcohol abuse: Status: Acute Code(s): F10.10 - Alcohol abuse, uncomplicated Plan Patient is a 22-year-old male with history of bipolar disorder type 1, alcohol abuse/dependence, PTSD discharged from 05/04/2022 and here for his 3rd inpatient admission in less than 1 year,, who Self presents for paranoid ideations that he is being followed by people who want to harm him in the face of having gone off his medication this past summer and relapsing with alcohol.? In the ED patient disrobing, disorganized; received Haldol for p.r.n. received Haldol as a p.r.n. -patient has history of severe manic episodes with significant psychotic features and extensive delusional beliefs that render him unable to function.? Patient also has PTSD and seems to frequently looked alcohol as a coping strategy.? On medication symptoms significantly decrease but it has never been clear whether patient has insight 10/30 patient remains with odd behavior; he is guarded and does not reveal much; remains internally preoccupied 10/31 patient psychotic with paranoid delusions.? Wirer Helper reassess is diagnosis and sees that patient has psychotic symptoms even when not? manic and will change diagnosis to schizoaffective.? Patient says it is okay for life insurance underwriter to adjust medications and that he will take whatever life insurance underwriter thinks past 11/01 remains with severe paranoid delusions 11/02 patient sleeping and hypomanic; remains with intense paranoid delusions including feeling that there are peers on the unit conspiring to intimidate him; patient does agree that he seems to run into trouble when he stops taking his medications, however no insight into psychiatric illness 11/03 paranoid delusions and manic behaviors persist; patient is paranoid making accusations against multiple peers thinking there conspiring against him.? Patient has no insight.? Labs returned today showing subtherapeutic lithium dose so will increase.? Patient put in another 3 day.? However he remains paranoid and accusatory to other peers, provoking them and at this time is unsafe to return to the community 11/04 remains with paranoid delusions;?Discussed case with nursing; met with patient; reviewed vitals and tachycardic 1/15 no change; continues to have paranoid and delusional thoughts; unwanted approaches to other peers on the unit who are afraid of him due to his behaviors.? Continues to insist that multiple people on the unit and in the community have plans to harm him and that he is afraid.? At this time life insurance underwriter is concerned for his safety.? [place] dose recently increased and needs time to become therapeutic.? Will continue to assess. 11/06 patient remains with severe paranoid and grandiose delusions; he thinks that peers are conspiring against him and says he is afraid for his safety; remains without any insight.? Says he does not want to take Geodon or lithium.? Patient is accusatory and sometimes aggressively posturing towards staff and peers.? Patient is at risk for inciting pre-emptive or retaliatory aggression from others he is accusing and challenging.? Wirer Helper and team agreed that patient is not safe for discharge to the community.? Discussed with team who agree that while sometimes patients chauncey can be addressed with medication, medications have yet to significantly erode paranoid delusions; however patient is not open to medication changes at this time. 11/07 severe, paranoid persecutory delusions, just during provoking to others whom he delusionally believes are conspiring against him.? Refused medications last night, though took them today. 11/08 remains with paranoid delusions, but did sleep last night. Agrees to trial of Zyprexa (will go with this med since some partial response in past and may have gotten dystonia from typical antipsychotic in ED) 11/13 remains with paranoid delusions, grandiose, or provocative towards peers whom he believes are conspiring against him. 11/14 remains with paranoid delusions, thinks people on the unit are trying to kill him. 11/15 no reduction in symptoms; will increase total daily Zyprexa dose to 40 mg.? Literature shows that typically if an antipsychotic is going to work detention for a person, it affords some reduction in symptoms early on even within a day or two; if patient's psychotic symptoms do not improve soon, will conclude that Zyprexa is not effective.? Clozapine remains the preferred medication however patient currently refuses.? Some concern for dystonic reaction from Haldol received in the emergency room;? will consider alternative 1st generation antipsychotics as well. -patient's mother is worried about vitamin-D and vitamin B deficiency; while these are rare and even less likely to have a clinical significance, will order lab work as patient agrees. 11/16 pt opening up about hx of trauma; unable to make connection with current paranoid delusion. Pt says he hates medications and thinks they are hurting him. Nursing concerned that patient is trying to check medication; will switch to Zydis 11/17 little less provocative towards peers but remains with florid paranoid and grandiose delusions. Last night patient initially refused his medications, but then later decided to take them. Today patient said he is trying to decide whether or not he should stop taking all the medications and challenge this life insurance underwriter in court or just continue taking medications, be in compliance and discharge.? He says he does not think the meds are working; does not think he needs them... 11/18: Continue current tx plan. Wirer Helper has concerns that patient is not taking medication as prescribed.? He consistently says things like he does not like them, thinks they are bad for him, does not want them.? Nursing concerned that patient trying to cheek his medication, prompting life insurance underwriter to change Zyprexa to oral disintegrating tablet Zydis, which is much more quickly bioavailable.? Also his lithium level on 11/17 is subtherapeutic at 0.31 And it is lower than it was when patient was taking a lower dose of lithium measured on 11/03 (0.46)implying that patient has been avoiding taking this medication consistently. Pt taking total daily [place] dose of 900mg. [place] level 0.46 on 11/03/22 Pt taking total daily [place] dose of 1200mg. [place] level 0.31 on 11/17/22 At this point life insurance underwriter still does not know if these medications can be effective as it seems likely patient is not adhering with regimen; this also makes it hard to know if they should be titrated (given risk of lithium toxicity). And Even while he's getting some amount of medication in him, he remains with florid paranoid, persecutory and grandiose delusions and mistakenly thinks others are conspiring and threatening to harm him. Patient has little to no insight into his psychiatric illness.? Wirer Helper has no reason to believe that patient will continue taking medications on discharge; almost daily, he expresses his belief that the medications are bad for him and he does not need them...and, it's questionable that he's fully taking them even now, despite having 14/05 supervision and redirection from trained staff.? If patient to discharge at this time, he would remain unsafe in the community. 11/21 patient less agitated and provocative on the unit, more calm. He does not bring up paranoid delusional thinking unless it is solicited. That said, patient remains with paranoid and grandiose delusions. And life insurance underwriter thinks it is unlikely that patient will continue medications once discharged. Concern is that current medication regimen seems able to calm down the chauncey, and perhaps taken edge off some of the moment to moment paranoid thinking, however they do not seem to resolve the paranoid/grandiose delusions. 11/22 less manic; less intrusive to others; still delusional but not expressing as much Plan: Petition court for involuntary commitment and medication Q 15 minute checks add melatonin (at pt's request) GILSON Serna; pt does not like (did help sleep however) Discontinue trazodone; patient says seems to have activated him [place] level: 0.31 (subtherapeutic despite being therapeutic at 0.6 6 at same dose). Continue ZYDIS 10 mg daily (switched to zydis out of concern for cheeking meds) Continue ZYIDIS 30mg qhs . Continue lithium ER 1200mg qhs (this does was subtherapeutic but said nauseus at higher dose); BUN creatinine, TSH, lytes within normal limits Changed to Cogentin 0.5 mg PRN (not sure if dystonic reaction was from Haldol received in the ED or from Geodon or just combination, but has not returned) -reviewed ED note; reviewed life insurance underwriter's notes from past admission In the past, these meds partially stabilized manic behaviors but did not resolve delusions: -Depakote ER 250 mg in the morning and 1000 mg q.h.s. -Risperdal 4 mg -Geodon: not effective Med trial Zyprexa: ?partially helpful as prn. Patient educated on: diagnosis Informed Consent: does not understand Reason for contiued inpatient stay Substantial Risk for: inability to function Time Spent With Patient Time: Total time managing care of this patient today ____ minutes.
[2022-11-22 18:00] VITALS: BP 130/80; PULSE 78; RESP 16; TEMP 36.6; O2SAT 97
[2022-11-22] MEDS: Lithium Carbonate 300 MG CAPSULE 1200 MG PO (20:13)
[2022-11-22] MEDS: clonazePAM 1 MG TABLET PO (20:14)
[2022-11-22] MEDS: OLANZapine ODT 10 MG TAB.RAPDIS 30 MG TRANSLINGU (20:14)
[2022-11-22] MEDS: Melatonin 3 MG TABLET PO (20:14)
[2022-11-23 06:00] VITALS: BP 118/69; PULSE 103; RESP 16; TEMP 36.7; O2SAT 98
[2022-11-23 07:00] VITALS: BMI 24.1
[2022-11-23] MEDS: Folic Acid 1 MG TABLET PO (08:41)
[2022-11-23] MEDS: Thiamine HCL 100 MG TABLET PO (08:41)
[2022-11-23] MEDS: Omeprazole 20 MG CAPSULE.DR PO (08:41)
[2022-11-23] MEDS: clonazePAM 0.5 MG TABLET PO ×3 (08:41→21:09)
[2022-11-23] MEDS: Multivitamin TABLET 1 TAB PO (08:41)
[2022-11-23] MEDS: OLANZapine ODT 10 MG TAB.RAPDIS TRANSLINGU (08:41)
[2022-11-23 18:00] VITALS: BP 123/79; PULSE 98; TEMP 36.8; O2SAT 99
[2022-11-23] MEDS: Nicotine Polacrilex 2 MG GUM 4 MG BUCCAL (20:56)
[2022-11-23] MEDS: Melatonin 3 MG TABLET PO (21:08)
[2022-11-23] MEDS: Lithium Carbonate 300 MG CAPSULE 1200 MG PO (21:08)
[2022-11-23] MEDS: OLANZapine ODT 10 MG TAB.RAPDIS 30 MG TRANSLINGU (21:08)
--- NOTE | 2022-11-23 23:18 | HO.PSYCHPN ---
Subjective Subjective Date of Service: 11/23/22 Reason For Visit: chauncey Interim History: met w/ patient; discussed in teams; called and discussed case with mother pt calmer on unit; polite w/ staff and peers; again, denies any new perceived threats by staff, though believes earlier perceived threats were real. Says he would like to discharge, that he will be able to best heal if he goes home to his momma but accepts staying longer. Pt continues to write daily letters to Francesco Merlos. Pt had list of questions for magnetic tape typewriter operator such as if there were concerns which magnetic tape typewriter operator said remain, though agreed pt is improving. SW and magnetic tape typewriter operator discussed case with his mother, including improved behaviors, resolution of overt chauncey but ongoing delusional thoughts; risk of stopping meds. Mental Status Exam Mental Status Exam Narrative: Pt is alert and oriented; behavior is more calm, cooperative; still some accusatory remarks; odd excessive formality with magnetic tape typewriter operator yes sir ; dressed in casual attire with long, unkempt hair but adequate hygiene; glasses; mood is described ok but affect is anxious and constricted; eye contact appropriate; Speech is normal rate, volume; normal prosody; not pressured; no psychomotor agitation; thought process is goal directed; Thought content is with paranoid, persecutory delusional and grandiose thoughts but not expressing them unless asked about and even then, hesitantly so; otherwise, pertinent to relevant topics; denies any SI/HI. Denies AVH however is internally preoccupied at times. Patients insight and judgment are impaired though some improvement. Diagnostics Vital Signs (24Hr): Vital Signs - 24 hr 11/23/22 06:00 11/23/22 18:00 Temperature 98.1 F 98.3 F Pulse Rate 103 H 98 Respiratory Rate 16 Blood Pressure 118/69 123/79 Pulse Oximetry 98 99 Oxygen Delivery Method Room Air Room Air BMI result Body Mass Index 23.3 Labs 10/27/22 22:03 11/08/22 08:34 Medications Medications Current Medications Acetaminophen (Acetaminophen 325 Mg Tablet) 650 mg PO Q6H PRN PRN Reason: Headache/Pain Mild Scale (1-3) Last Admin: 11/13/22 08:19 Dose: 650 mg Al Hydroxide/Mg Hydroxide (Magnesium Hydrox/Alum Hydrox 30 Ml Oral.Susp) 30 ml PO Q6H PRN PRN Reason: Heartburn/Nausea Last Admin: 11/11/22 17:24 Dose: 30 ml Benztropine Mesylate (Benztropine Mesylate 0.5 Mg Tablet) 0.5 mg PO TID PRN PRN Reason: Extrapyramidal Effects Chlorpromazine HCl (Chlorpromazine Hcl 25 Mg Tablet) 50 mg PO Q4H PRN PRN Reason: anxiety/agitation Last Admin: 11/18/22 16:15 Dose: 50 mg Clonazepam (Clonazepam 0.5 Mg Tablet) 0.5 mg PO BEDTIME [facility] Last Admin: 11/23/22 21:09 Dose: 0.5 mg Folic Acid (Folic Acid 1 Mg Tablet) 1 mg PO DAILY [facility] Last Admin: 11/23/22 08:41 Dose: 1 mg [place] Carbonate ([place] Carbonate 300 Mg Capsule) 1,200 mg PO BEDTIME [facility] Last Admin: 11/23/22 21:08 Dose: 1,200 mg Magnesium Hydroxide (Milk Of Magnesia 30 Ml Oral.Susp) 30 ml PO DAILY PRN PRN Reason: Constipation Melatonin (Melatonin 3 Mg Tablet) 3 mg PO BEDTIME [facility] Last Admin: 11/23/22 21:08 Dose: 3 mg Melatonin (Melatonin 3 Mg Tablet) 3 mg PO BEDTIME PRN PRN Reason: continued insomnia Nicotine Polacrilex (Nicotine Polacrilex 2 Mg Gum) 4 mg BUCCAL Q2H PRN PRN Reason: Nicotine Cravings Last Admin: 11/23/22 20:56 Dose: 4 mg Olanzapine (Olanzapine Odt 10 Mg Tab.Rapdis) 30 mg TRANSLINGU BEDTIME [facility] Last Admin: 11/23/22 21:08 Dose: 30 mg Allergies Allergies Allergy/AdvReac Type Severity Reaction Status Date / Time No Known Allergies Allergy Verified 02/22/22 16:29 Assessment & Plan Assessment & Plan (1) Schizoaffective disorder, bipolar type: Status: Acute Code(s): F25.0 - Schizoaffective disorder, bipolar type (2) Chronic post-traumatic stress disorder (PTSD): Status: Acute Code(s): F43.12 - Post-traumatic stress disorder, chronic (3) Alcohol abuse: Status: Acute Code(s): F10.10 - Alcohol abuse, uncomplicated Plan Patient is a 22-year-old male with history of bipolar disorder type 1, alcohol abuse/dependence, PTSD discharged from [facility] 05/04/2022 and here for his 3rd inpatient admission in less than 1 year,, who Self presents for paranoid ideations that he is being followed by people who want to harm him in the face of having gone off his medication this past summer and relapsing with alcohol.? In the ED patient disrobing, disorganized; received Haldol for p.r.n. received Haldol as a p.r.n. -patient has history of severe manic episodes with significant psychotic features and extensive delusional beliefs that render him unable to function.? Patient also has PTSD and seems to frequently looked alcohol as a coping strategy.? On medication symptoms significantly decrease but it has never been clear whether patient has insight 10/30 patient remains with odd behavior; he is guarded and does not reveal much; remains internally preoccupied 10/31 patient psychotic with paranoid delusions.? Connie Scratcher reassess is diagnosis and sees that patient has psychotic symptoms even when not? manic and will change diagnosis to schizoaffective.? Patient says it is okay for magnetic tape typewriter operator to adjust medications and that he will take whatever magnetic tape typewriter operator thinks past 11/01 remains with severe paranoid delusions 11/02 patient sleeping and hypomanic; remains with intense paranoid delusions including feeling that there are peers on the unit conspiring to intimidate him; patient does agree that he seems to run into trouble when he stops taking his medications, however no insight into psychiatric illness 11/03 paranoid delusions and manic behaviors persist; patient is paranoid making accusations against multiple peers thinking there conspiring against him.? Patient has no insight.? Labs returned today showing subtherapeutic lithium dose so will increase.? Patient put in another 3 day.? However he remains paranoid and accusatory to other peers, provoking them and at this time is unsafe to return to the community 11/04 remains with paranoid delusions;?Discussed case with nursing; met with patient; reviewed vitals and tachycardic 11/05 no change; continues to have paranoid and delusional thoughts; unwanted approaches to other peers on the unit who are afraid of him due to his behaviors.? Continues to insist that multiple people on the unit and in the community have plans to harm him and that he is afraid.? At this time magnetic tape typewriter operator is concerned for his safety.? [place] dose recently increased and needs time to become therapeutic.? Will continue to assess. 11/06 patient remains with severe paranoid and grandiose delusions; he thinks that peers are conspiring against him and says he is afraid for his safety; remains without any insight.? Says he does not want to take Geodon or lithium.? Patient is accusatory and sometimes aggressively posturing towards staff and peers.? Patient is at risk for inciting pre-emptive or retaliatory aggression from others he is accusing and challenging.? Connie Scratcher and team agreed that patient is not safe for discharge to the community.? Discussed with team who agree that while sometimes patients chauncey can be addressed with medication, medications have yet to significantly erode paranoid delusions; however patient is not open to medication changes at this time. 11/07 severe, paranoid persecutory delusions, just during provoking to others whom he delusionally believes are conspiring against him.? Refused medications last night, though took them today. 11/08 remains with paranoid delusions, but did sleep last night. Agrees to trial of Zyprexa (will go with this med since some partial response in past and may have gotten dystonia from typical antipsychotic in ED) 11/13 remains with paranoid delusions, grandiose, or provocative towards peers whom he believes are conspiring against him. 11/14 remains with paranoid delusions, thinks people on the unit are trying to kill him. 11/15 no reduction in symptoms; will increase total daily Zyprexa dose to 40 mg.? Literature shows that typically if an antipsychotic is going to work machine long goods helper for a person, it affords some reduction in symptoms early on even within a day or two; if patient's psychotic symptoms do not improve soon, will conclude that Zyprexa is not effective.? Clozapine remains the preferred medication however patient currently refuses.? Some concern for dystonic reaction from Haldol received in the emergency room;? will consider alternative 1st generation antipsychotics as well. -patient's mother is worried about vitamin-D and vitamin B deficiency; while these are rare and even less likely to have a clinical significance, will order lab work as patient agrees. 11/16 pt opening up about hx of trauma; unable to make connection with current paranoid delusion. Pt says he hates medications and thinks they are hurting him. Nursing concerned that patient is trying to check medication; will switch to Zydis 11/17 little less provocative towards peers but remains with florid paranoid and grandiose delusions. Last night patient initially refused his medications, but then later decided to take them. Today patient said he is trying to decide whether or not he should stop taking all the medications and challenge this magnetic tape typewriter operator in court or just continue taking medications, be in compliance and discharge.? He says he does not think the meds are working; does not think he needs them... 11/18: Continue current tx plan. Connie Scratcher has concerns that patient is not taking medication as prescribed.? He consistently says things like he does not like them, thinks they are bad for him, does not want them.? Nursing concerned that patient trying to cheek his medication, prompting magnetic tape typewriter operator to change Zyprexa to oral disintegrating tablet Zydis, which is much more quickly bioavailable.? Also his lithium level on 11/17 is subtherapeutic at 0.31 And it is lower than it was when patient was taking a lower dose of lithium measured on 11/03 (0.46)implying that patient has been avoiding taking this medication consistently. Pt taking total daily [place] dose of 900mg. [place] level 0.46 on 11/03/22 Pt taking total daily [place] dose of 1200mg. [place] level 0.31 on 11/17/22 At this point magnetic tape typewriter operator still does not know if these medications can be effective as it seems likely patient is not adhering with regimen; this also makes it hard to know if they should be titrated (given risk of lithium toxicity). And Even while he's getting some amount of medication in him, he remains with florid paranoid, persecutory and grandiose delusions and mistakenly thinks others are conspiring and threatening to harm him. Patient has little to no insight into his psychiatric illness.? Connie Scratcher has no reason to believe that patient will continue taking medications on discharge; almost daily, he expresses his belief that the medications are bad for him and he does not need them...and, it's questionable that he's fully taking them even now, despite having 24/ supervision and redirection from trained staff.? If patient to discharge at this time, he would remain unsafe in the community. 11/21 patient less agitated and provocative on the unit, more calm. He does not bring up paranoid delusional thinking unless it is solicited. That said, patient remains with paranoid and grandiose delusions. And magnetic tape typewriter operator thinks it is unlikely that patient will continue medications once discharged. Concern is that current medication regimen seems able to calm down the chauncey, and perhaps taken edge off some of the moment to moment paranoid thinking, however they do not seem to resolve the paranoid/grandiose delusions. 11/22 less manic; less intrusive to others; still delusional but not expressing as much 11/23 dc morning Zydis since pt may remain at current stability at total daily dose of 30mg and once a day dosing will help encourage continued adherence post discharge; will also dc vitamins as pt is eating well and again, to lessen pill-taking burden in effort to enhance adherence Plan: Petition court for involuntary commitment and medication Q 15 minute checks add melatonin (at pt's request) DC Ambien; pt does not like (did help sleep however) Discontinue trazodone; patient says seems to have activated him [place] level: 0.31 (subtherapeutic despite being therapeutic at 0.6 6 at same dose). DC ZYDIS 10 mg daily Continue ZYIDIS 30mg qhs . Continue lithium ER 1200mg qhs (this does was subtherapeutic but said nauseus at higher dose); BUN creatinine, TSH, lytes within normal limits Changed to Cogentin 0.5 mg PRN (not sure if dystonic reaction was from Haldol received in the ED or from Geodon or just combination, but has not returned) dc omeprazole; pt says only had couple days of gerd and does not think needs it In the past, these meds partially stabilized manic behaviors but did not resolve delusions: -Depakote ER 250 mg in the morning and 1000 mg q.h.s. -Risperdal 4 mg -Geodon: not effective Med trial Zyprexa: ?partially helpful as prn. Patient educated on: diagnosis Informed Consent: does not understand and further education needed Reason for contiued inpatient stay Substantial Risk for: rapid decompensation Time Spent With Patient Time: Total time managing care of this patient today ____ minutes.
[2022-11-24 06:00] VITALS: BP 107/66; PULSE 86; RESP 14; TEMP 36.2; O2SAT 98
[2022-11-24] MEDS: Folic Acid 1 MG TABLET PO (08:35)
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
[2022-11-24] MEDS: Nicotine Polacrilex 2 MG GUM 4 MG BUCCAL (17:22)
[2022-11-24 18:00] VITALS: BP 141/86; PULSE 103; TEMP 36.7; O2SAT 96
[2022-11-24] MEDS: Lithium Carbonate 300 MG CAPSULE 1200 MG PO (20:03)
[2022-11-24] MEDS: OLANZapine ODT 10 MG TAB.RAPDIS 30 MG TRANSLINGU (20:04)
[2022-11-24] MEDS: Melatonin 3 MG TABLET PO (20:04)
[2022-11-24] MEDS: clonazePAM 0.5 MG TABLET PO (20:04)
[2022-11-25 06:00] VITALS: BP 130/78; PULSE 103; RESP 14; TEMP 36.6; O2SAT 97
--- NOTE | 2022-11-25 17:18 | P.PNPSI_ITS ---
Subjective Subjective Date of Service: 11/25/22 Reason For Visit: chauncey Medical Problems Affecting Mental Status: No Interim History: chart reviewed. Met with patient. Discussed with Nursing. Overall remains psychotic. Adherent with meds. Patient today presents is overly bright, intrusive, reports feeling good and has slept well for the last 3-4 days. Repo rts looking forward to going home and seeing his mother. 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 Medication Compliance: Yes Side effects from medications: No Attending Groups: Intermittent Review of Systems Acute medical concerns: No Review of Systems Review of Systems Yes all other systems are reviewed and are negative Mental Status Exam Mental Status Exam Narrative: pleasant. Engaged. Fairly presented. Intrusive. Does appear euphoric. No SI. No HI. Does appear to have grandiose delusions. Insight and judgment limited Diagnostics Vital Signs (24Hr): Vital Signs - 24 hr 11/24/22 18:00 11/25/22 06:00 Temperature 98.1 F 97.9 F Pulse Rate 103 H 103 H Respiratory Rate 14 Blood Pressure 141/86 H 130/78 Pulse Oximetry 96 97 Oxygen Delivery Method Room Air Room Air BMI result Body Mass Index 24.1 Labs 10/27/22 22:03 11/08/22 08:34 Medications Medications Current Medications Acetaminophen (Acetaminophen 325 Mg Tablet) 650 mg PO Q6H PRN PRN Reason: Headache/Pain Mild Scale (1-3) Last Admin: 11/13/22 08:19 Dose: 650 mg Al Hydroxide/Mg Hydroxide (Magnesium Hydrox/Alum Hydrox 30 Ml Oral.Susp) 30 ml PO Q6H PRN PRN Reason: Heartburn/Nausea Last Admin: 11/11/22 17:24 Dose: 30 ml Benztropine Mesylate (Benztropine Mesylate 0.5 Mg Tablet) 0.5 mg PO TID PRN PRN Reason: Extrapyramidal Effects Chlorpromazine HCl (Chlorpromazine Hcl 25 Mg Tablet) 50 mg PO Q4H PRN PRN Reason: anxiety/agitation Last Admin: 11/18/22 16:15 Dose: 50 mg Clonazepam (Clonazepam 0.5 Mg Tablet) 0.5 mg PO BEDTIME VIC Last Admin: 11/24/22 20:04 Dose: 0.5 mg [place] Carbonate ([place] Carbonate 300 Mg Capsule) 1,200 mg PO BEDTIME VIC Last Admin: 11/24/22 20:03 Dose: 1,200 mg Magnesium Hydroxide (Milk Of Magnesia 30 Ml Oral.Susp) 30 ml PO DAILY PRN PRN Reason: Constipation Melatonin (Melatonin 3 Mg Tablet) 3 mg PO BEDTIME VIC Last Admin: 11/24/22 20:04 Dose: 3 mg Melatonin (Melatonin 3 Mg Tablet) 3 mg PO BEDTIME PRN PRN Reason: continued insomnia Nicotine Polacrilex (Nicotine Polacrilex 2 Mg Gum) 4 mg BUCCAL Q2H PRN PRN Reason: Nicotine Cravings Last Admin: 11/24/22 17:22 Dose: 4 mg Olanzapine (Olanzapine Odt 10 Mg Tab.Rapdis) 30 mg TRANSLINGU BEDTIME VIC Last Admin: 11/24/22 20:04 Dose: 30 mg Allergies Allergies Allergy/AdvReac Type Severity Reaction Status Date / Time No Known Allergies Allergy Verified 02/22/22 16:29 Assessment & Plan Assessment & Plan (1) Schizoaffective disorder, bipolar type: Status: Acute Code(s): F25.0 - Schizoaffective disorder, bipolar type (2) Chronic post-traumatic stress disorder (PTSD): Status: Acute Code(s): F43.12 - Post-traumatic stress disorder, chronic (3) Alcohol abuse: Status: Acute Code(s): F10.10 - Alcohol abuse, uncomplicated Plan Patient is a 22-year-old male with history of bipolar disorder type 1, alcohol abuse/dependence, PTSD discharged from 05/04/2022 and here for his 3rd inpatient admission in less than 1 year,, who Self presents for paranoid ideations that he is being followed by people who want to harm him in the face of having gone off his medication this past summer and relapsing with alcohol.? In the ED patient disrobing, disorganized; received Haldol for p.r.n. received Haldol as a p.r.n. -patient has history of severe manic episodes with significant psychotic features and extensive delusional beliefs that render him unable to function.? Patient also has PTSD and seems to frequently looked alcohol as a coping strategy.? On medication symptoms significantly decrease but it has never been clear whether patient has insight 10/30 patient remains with odd behavior; he is guarded and does not reveal much; remains internally preoccupied 10/31 patient psychotic with paranoid delusions.? Simulation Analyst reassess is diagnosis and sees that patient has psychotic symptoms even when not? manic and will change diagnosis to schizoaffective.? Patient says it is okay for lyric writer to adjust medications and that he will take whatever lyric writer thinks past 11/01 remains with severe paranoid delusions 11/02 patient sleeping and hypomanic; remains with intense paranoid delusions including feeling that there are peers on the unit conspiring to intimidate him; patient does agree that he seems to run into trouble when he stops taking his medications, however no insight into psychiatric illness 11/03 paranoid delusions and manic behaviors persist; patient is paranoid making accusations against multiple peers thinking there conspiring against him.? Patient has no insight.? Labs returned today showing subtherapeutic lithium dose so will increase.? Patient put in another 3 day.? However he remains paranoid and accusatory to other peers, provoking them and at this time is unsafe to return to the community 11/04 remains with paranoid delusions;?Discussed case with nursing; met with patient; reviewed vitals and tachycardic 11/05 no change; continues to have paranoid and delusional thoughts; unwanted approaches to other peers on the unit who are afraid of him due to his behaviors.? Continues to insist that multiple people on the unit and in the community have plans to harm him and that he is afraid.? At this time lyric writer is concerned for his safety.? [place] dose recently increased and needs time to become therapeutic.? Will continue to assess. 11/06 patient remains with severe paranoid and grandiose delusions; he thinks that peers are conspiring against him and says he is afraid for his safety; remains without any insight.? Says he does not want to take Geodon or lithium.? Patient is accusatory and sometimes aggressively posturing towards staff and peers.? Patient is at risk for inciting pre-emptive or retaliatory aggression from others he is accusing and challenging.? Simulation Analyst and team agreed that patient is not safe for discharge to the community.? Discussed with team who agree that while sometimes patients chauncey can be addressed with medication, medications have yet to significantly erode paranoid delusions; however patient is not open to medication changes at this time. 11/07 severe, paranoid persecutory delusions, just during provoking to others whom he delusionally believes are conspiring against him.? Refused medications last night, though took them today. 11/08 remains with paranoid delusions, but did sleep last night. Agrees to trial of Zyprexa (will go with this med since some partial response in past and may have gotten dystonia from typical antipsychotic in ED) 11/13 remains with paranoid delusions, grandiose, or provocative towards peers whom he believes are conspiring against him. 11/14 remains with paranoid delusions, thinks people on the unit are trying to kill him. 11/15 no reduction in symptoms; will increase total daily Zyprexa dose to 40 mg.? Literature shows that typically if an antipsychotic is going to work termite inspector for a person, it affords some reduction in symptoms early on even within a day or two; if patient's psychotic symptoms do not improve soon, will conclude that Zyprexa is not effective.? Clozapine remains the preferred medication however patient currently refuses.? Some concern for dystonic reaction from Haldol received in the emergency room;? will consider alternative 1st generation antipsychotics as well. -patient's mother is worried about vitamin-D and vitamin B deficiency; while these are rare and even less likely to have a clinical significance, will order lab work as patient agrees. 11/16 pt opening up about hx of trauma; unable to make connection with current paranoid delusion. Pt says he hates medications and thinks they are hurting him. Nursing concerned that patient is trying to check medication; will switch to Zydis 11/17 little less provocative towards peers but remains with florid paranoid and grandiose delusions. Last night patient initially refused his medications, but then later decided to take them. Today patient said he is trying to decide whether or not he should stop taking all the medications and challenge this lyric writer in court or just continue taking medications, be in compliance and discharge.? He says he does not think the meds are working; does not think he needs them... 11/18: Continue current tx plan. Simulation Analyst has concerns that patient is not taking medication as prescribed.? He consistently says things like he does not like them, thinks they are bad for him, does not want them.? Nursing concerned that patient trying to cheek his medication, prompting lyric writer to change Zyprexa to oral disintegrating tablet Zydis, which is much more quickly bioavailable.? Also his lithium level on 11/17 is subtherapeutic at 0.31 And it is lower than it was when patient was taking a lower dose of lithium measured on 11/03 (0.46)implying that patient has been avoiding taking this medication consistently. Pt taking total daily [place] dose of 900mg. [place] level 0.46 on 11/03/22 Pt taking total daily [place] dose of 1200mg. [place] level 0.31 on 11/17/22 At this point lyric writer still does not know if these medications can be effective as it seems likely patient is not adhering with regimen; this also makes it hard to know if they should be titrated (given risk of lithium toxicity). And Even while he's getting some amount of medication in him, he remains with florid paranoid, persecutory and grandiose delusions and mistakenly thinks others are conspiring and threatening to harm him. Patient has little to no insight into his psychiatric illness.? Simulation Analyst has no reason to believe that patient will continue taking medications on discharge; almost daily, he expresses his belief that the medications are bad for him and he does not need them...and, it's questionable that he's fully taking them even now, despite having 24/ supervision and redirection from trained staff.? If patient to discharge at this time, he would remain unsafe in the community. 11/21 patient less agitated and provocative on the unit, more calm. He does not bring up paranoid delusional thinking unless it is solicited. That said, patient remains with paranoid and grandiose delusions. And lyric writer thinks it is unlikely that patient will continue medications once discharged. Concern is that current medication regimen seems able to calm down the chauncey, and perhaps taken edge off some of the moment to moment paranoid thinking, however they do not seem to resolve the paranoid/grandiose delusions. 2/1 less manic; less intrusive to others; still delusional but not expressing as much 2/2 dc morning Zydis since pt may remain at current stability at total daily dose of 30mg and once a day dosing will help encourage continued adherence post discharge; will also dc vitamins as pt is eating well and again, to lessen pill- taking burden in effort to enhance adherence 2/3 expresses improved insight, sharing his consideration that beliefs may have been dreams and current ambivalence regarding if beliefs are delusional vs true. That said, in the past, pt once admitted to lyric writer that he fooled lyric writer by pretending to no longer believe his delusional thoughts, saying they delusions....only since he knew that was what lyric writer wanted to hear. It's possible that pt is ambivalent and also that if he remains on meds, insight will improve -currently pt is no longer perceiving threats from peers and he's no longer intrusive; not talking about delusional thoughts to others; he's sleeping and eating well; taking his meds; if he remains at current level of stability will consider dc home as mother feels ok about his discharge. He refuses to try clozapine which would be main reason to keep him longer. 11/25/22: no changes Plan: Petition court for involuntary commitment and medication Q 15 minute checks add melatonin (at pt's request) DC [place]; pt does not like (did help sleep however) Discontinue trazodone; patient says seems to have activated him [place] level: 0.31 (subtherapeutic despite being therapeutic at 0.6 6 at same dose). DC ZYDIS 10 mg daily Continue ZYIDIS 30mg qhs . Continue lithium ER 1200mg qhs (this does was subtherapeutic but said nauseus at higher dose); BUN creatinine, TSH, lytes within normal limits Changed to Cogentin 0.5 mg PRN (not sure if dystonic reaction was from Haldol r eceived in the ED or from Geodon or just combination, but has not returned) dc omeprazole; pt says only had couple days of gerd and does not think needs it In the past, these meds partially stabilized manic behaviors but did not resolve delusions: -Depakote ER 250 mg in the morning and 1000 mg q.h.s. -Risperdal 4 mg -Geodon: not effective Med trial Zyprexa: ?partially helpful as prn. Reason for contiued inpatient stay Substantial Risk for: rapid decompensation Time Spent With Patient Time: Total time managing care of this patient today ____ minutes.
[2022-11-25 18:49] VITALS: BP 154/84; PULSE 106; RESP 14; TEMP 37.1
[2022-11-25] MEDS: clonazePAM 0.5 MG TABLET PO (19:45)
[2022-11-25] MEDS: Melatonin 3 MG TABLET PO (19:45)
[2022-11-25] MEDS: OLANZapine ODT 10 MG TAB.RAPDIS 30 MG TRANSLINGU (19:45)
[2022-11-25] MEDS: Lithium Carbonate 300 MG CAPSULE 1200 MG PO (19:45)
[2022-11-26 06:00] VITALS: BP 128/77; PULSE 110; RESP 14; TEMP 36.9; O2SAT 96
[2022-11-26] MEDS: chlorproMAZINE HCl 25 MG TABLET 50 MG PO ×2 (12:45→17:28)
--- NOTE | 2022-11-26 13:17 | HO.PSYCHPN ---
Subjective Subjective Date of Service: 11/26/22 Reason For Visit: chauncey Interim History: chart reviewed. Met with patient. Discussed with Nursing. Overall remains psychotic. Adherent with meds. Continues to present as he is euphoric. Was talking about 10 as low a. 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 Less intrusive today. R Medication Compliance: Yes Side effects from medications: No Attending Groups: Yes Review of Systems Review of Systems Yes all other systems are reviewed and are negative Mental Status Exam Mental Status Exam Narrative: pleasant. Engaged. Fairly presented. Intrusive. Does appear euphoric. No SI. No HI. Appears to have grandiose delusions. Insight and judgment limited Diagnostics Vital Signs (24Hr): Vital Signs - 24 hr 11/25/22 18:49 11/26/22 06:00 Temperature 98.8 F 98.5 F Pulse Rate 106 H 110 H Respiratory Rate 14 14 Blood Pressure 154/84 H 128/77 Pulse Oximetry 96 Oxygen Delivery Method Room Air BMI result Body Mass Index 24.1 Labs 10/27/22 22:03 11/08/22 08:34 Medications Medications Current Medications Acetaminophen (Acetaminophen 325 Mg Tablet) 650 mg PO Q6H PRN PRN Reason: Headache/Pain Mild Scale (1-3) Last Admin: 11/13/22 08:19 Dose: 650 mg Al Hydroxide/Mg Hydroxide (Magnesium Hydrox/Alum Hydrox 30 Ml Oral.Susp) 30 ml PO Q6H PRN PRN Reason: Heartburn/Nausea Last Admin: 11/11/22 17:24 Dose: 30 ml Benztropine Mesylate (Benztropine Mesylate 0.5 Mg Tablet) 0.5 mg PO TID PRN PRN Reason: Extrapyramidal Effects Chlorpromazine HCl (Chlorpromazine Hcl 25 Mg Tablet) 50 mg PO Q4H PRN PRN Reason: anxiety/agitation Last Admin: 11/26/22 12:45 Dose: 50 mg Clonazepam (Clonazepam 0.5 Mg Tablet) 0.5 mg PO BEDTIME VIC Last Admin: 11/25/22 19:45 Dose: 0.5 mg [place] Carbonate ([place] Carbonate 300 Mg Capsule) 1,200 mg PO BEDTIME VIC Last Admin: 11/25/22 19:45 Dose: 1,200 mg Magnesium Hydroxide (Milk Of Magnesia 30 Ml Oral.Susp) 30 ml PO DAILY PRN PRN Reason: Constipation Melatonin (Melatonin 3 Mg Tablet) 3 mg PO BEDTIME [facility] Last Admin: 11/25/22 19:45 Dose: 3 mg Melatonin (Melatonin 3 Mg Tablet) 3 mg PO BEDTIME PRN PRN Reason: continued insomnia Nicotine Polacrilex (Nicotine Polacrilex 2 Mg Gum) 4 mg BUCCAL Q2H PRN PRN Reason: Nicotine Cravings Last Admin: 11/24/22 17:22 Dose: 4 mg Olanzapine (Olanzapine Odt 10 Mg Tab.Rapdis) 30 mg TRANSLINGU BEDTIME [facility] Last Admin: 11/25/22 19:45 Dose: 30 mg Allergies Allergies Allergy/AdvReac Type Severity Reaction Status Date / Time No Known Allergies Allergy Verified 02/22/22 16:29 Assessment & Plan Assessment & Plan (1) Schizoaffective disorder, bipolar type: Status: Acute Code(s): F25.0 - Schizoaffective disorder, bipolar type (2) Chronic post-traumatic stress disorder (PTSD): Status: Acute Code(s): F43.12 - Post-traumatic stress disorder, chronic (3) Alcohol abuse: Status: Acute Code(s): F10.10 - Alcohol abuse, uncomplicated Plan Patient is a 22-year-old male with history of bipolar disorder type 1, alcohol abuse/dependence, PTSD discharged from 05/04/2022 and here for his 3rd inpatient admission in less than 1 year,, who Self presents for paranoid ideations that he is being followed by people who want to harm him in the face of having gone off his medication this past summer and relapsing with alcohol.? In the ED patient disrobing, disorganized; received Haldol for p.r.n. received Haldol as a p.r.n. -patient has history of severe manic episodes with significant psychotic features and extensive delusional beliefs that render him unable to function.? Patient also has PTSD and seems to frequently looked alcohol as a coping strategy.? On medication symptoms significantly decrease but it has never been clear whether patient has insight 10/30 patient remains with odd behavior; he is guarded and does not reveal much; remains internally preoccupied 10/31 patient psychotic with paranoid delusions.? [employer] reassess is diagnosis and sees that patient has psychotic symptoms even when not? manic and will change diagnosis to schizoaffective.? Patient says it is okay for selling underwriter to adjust medications and that he will take whatever selling underwriter thinks past 11/01 remains with severe paranoid delusions 11/02 patient sleeping and hypomanic; remains with intense paranoid delusions including feeling that there are peers on the unit conspiring to intimidate him; patient does agree that he seems to run into trouble when he stops taking his medications, however no insight into psychiatric illness 11/03 paranoid delusions and manic behaviors persist; patient is paranoid making accusations against multiple peers thinking there conspiring against him.? Patient has no insight.? Labs returned today showing subtherapeutic lithium dose so will increase.? Patient put in another 3 day.? However he remains paranoid and accusatory to other peers, provoking them and at this time is unsafe to return to the community 11/04 remains with paranoid delusions;?Discussed case with nursing; met with patient; reviewed vitals and tachycardic 11/05 no change; continues to have paranoid and delusional thoughts; unwanted approaches to other peers on the unit who are afraid of him due to his behaviors.? Continues to insist that multiple people on the unit and in the community have plans to harm him and that he is afraid.? At this time selling underwriter is concerned for his safety.? Kaneo[place] dose recently increased and needs time to become therapeutic.? Will continue to assess. 11/06 patient remains with severe paranoid and grandiose delusions; he thinks that peers are conspiring against him and says he is afraid for his safety; remains without any insight.? Says he does not want to take Geodon or lithium.? Patient is accusatory and sometimes aggressively posturing towards staff and peers.? Patient is at risk for inciting pre-emptive or retaliatory aggression from others he is accusing and challenging.? [employer] and team agreed that patient is not safe for discharge to the community.? Discussed with team who agree that while sometimes patients chauncey can be addressed with medication, medications have yet to significantly erode paranoid delusions; however patient is not open to medication changes at this time. 11/07 severe, paranoid persecutory delusions, just during provoking to others whom he delusionally believes are conspiring against him.? Refused medications last night, though took them today. 11/08 remains with paranoid delusions, but did sleep last night. Agrees to trial of Zyprexa (will go with this med since some partial response in past and may have gotten dystonia from typical antipsychotic in ED) 11/13 remains with paranoid delusions, grandiose, or provocative towards peers whom he believes are conspiring against him. 11/14 remains with paranoid delusions, thinks people on the unit are trying to kill him. 11/15 no reduction in symptoms; will increase total daily Zyprexa dose to 40 mg.? Literature shows that typically if an antipsychotic is going to work [facility] for a person, it affords some reduction in symptoms early on even within a day or two; if patient's psychotic symptoms do not improve soon, will conclude that Zyprexa is not effective.? Clozapine remains the preferred medication however patient currently refuses.? Some concern for dystonic reaction from Haldol received in the emergency room;? will consider alternative 1st generation antipsychotics as well. -patient's mother is worried about vitamin-D and vitamin B deficiency; while these are rare and even less likely to have a clinical significance, will order lab work as patient agrees. 11/16 pt opening up about hx of trauma; unable to make connection with current paranoid delusion. Pt says he hates medications and thinks they are hurting him. Nursing concerned that patient is trying to check medication; will switch to Zydis 11/17 little less provocative towards peers but remains with florid paranoid and grandiose delusions. Last night patient initially refused his medications, but then later decided to take them. Today patient said he is trying to decide whether or not he should stop taking all the medications and challenge this selling underwriter in court or just continue taking medications, be in compliance and discharge.? He says he does not think the meds are working; does not think he needs them... 11/18: Continue current tx plan. [employer] has concerns that patient is not taking medication as prescribed.? He consistently says things like he does not like them, thinks they are bad for him, does not want them.? Nursing concerned that patient trying to cheek his medication, prompting selling underwriter to change Zyprexa to oral disintegrating tablet Zydis, which is much more quickly bioavailable.? Also his lithium level on 11/17 is subtherapeutic at 0.31 And it is lower than it was when patient was taking a lower dose of lithium measured on 11/03 (0.46)implying that patient has been avoiding taking this medication consistently. Pt taking total daily [place] dose of 900mg. [place] level 0.46 on 11/03/22 Pt taking total daily [place] dose of 1200mg. [place] level 0.31 on 11/17/22 At this point selling underwriter still does not know if these medications can be effective as it seems likely patient is not adhering with regimen; this also makes it hard to know if they should be titrated (given risk of lithium toxicity). And Even while he's getting some amount of medication in him, he remains with florid paranoid, persecutory and grandiose delusions and mistakenly thinks others are conspiring and threatening to harm him. Patient has little to no insight into his psychiatric illness.? [employer] has no reason to believe that patient will continue taking medications on discharge; almost daily, he expresses his belief that the medications are bad for him and he does not need them...and, it's questionable that he's fully taking them even now, despite having / supervision and redirection from trained staff.? If patient to discharge at this time, he would remain unsafe in the community. 11/21 patient less agitated and provocative on the unit, more calm. He does not bring up paranoid delusional thinking unless it is solicited. That said, patient remains with paranoid and grandiose delusions. And selling underwriter thinks it is unlikely that patient will continue medications once discharged. Concern is that current medication regimen seems able to calm down the chauncey, and perhaps taken edge off some of the moment to moment paranoid thinking, however they do not seem to resolve the paranoid/grandiose delusions. 2/1 less manic; less intrusive to others; still delusional but not expressing as much 2/2 dc morning Zydis since pt may remain at current stability at total daily dose of 30mg and once a day dosing will help encourage continued adherence post discharge; will also dc vitamins as pt is eating well and again, to lessen pill-taking burden in effort to enhance adherence 2/3 expresses improved insight, sharing his consideration that beliefs may have been dreams and current ambivalence regarding if beliefs are delusional vs true. That said, in the past, pt once admitted to selling underwriter that he fooled selling underwriter by pretending to no longer believe his delusional thoughts, saying they delusions....only since he knew that was what selling underwriter wanted to hear. It's possible that pt is ambivalent and also that if he remains on meds, insight will improve -currently pt is no longer perceiving threats from peers and he's no longer intrusive; not talking about delusional thoughts to others; he's sleeping and eating well; taking his meds; if he remains at current level of stability will consider dc home as mother feels ok about his discharge. He refuses to try clozapine which would be main reason to keep him longer. 11/26/22: no changes Plan: Petition court for involuntary commitment and medication Q 15 minute checks add melatonin (at pt's request) GILSON Serna; pt does not like (did help sleep however) Discontinue trazodone; patient says seems to have activated him [place] level: 0.31 (subtherapeutic despite being therapeutic at 0.6 6 at same dose). DC ZYDIS 10 mg daily Continue ZYIDIS 30mg qhs . Continue lithium ER 1200mg qhs (this does was subtherapeutic but said nauseus at higher dose); BUN creatinine, TSH, lytes within normal limits Changed to Cogentin 0.5 mg PRN (not sure if dystonic reaction was from Haldol received in the ED or from Geodon or just combination, but has not returned) dc omeprazole; pt says only had couple days of gerd and does not think needs it In the past, these meds partially stabilized manic behaviors but did not resolve delusions: -Depakote ER 250 mg in the morning and 1000 mg q.h.s. -Risperdal 4 mg -Geodon: not effective Med trial Zyprexa: ?partially helpful as prn. Reason for contiued inpatient stay Substantial Risk for: inability to function Time Spent With Patient Time: Total time managing care of this patient today ____ minutes.
[2022-11-26 18:00] VITALS: BP 134/76; PULSE 111; RESP 14; TEMP 36.7
[2022-11-26] MEDS: Acetaminophen 325 MG TABLET 650 MG PO (19:51)
[2022-11-26] MEDS: Lithium Carbonate 300 MG CAPSULE 1200 MG PO (19:52)
[2022-11-26] MEDS: OLANZapine ODT 10 MG TAB.RAPDIS 30 MG TRANSLINGU (19:52)
[2022-11-26] MEDS: Melatonin 3 MG TABLET PO (19:53)
[2022-11-26] MEDS: clonazePAM 0.5 MG TABLET PO (19:53)
[2022-11-27 09:42] VITALS: BP 122/65; PULSE 103; RESP 18; TEMP 37.2; O2SAT 96
[2022-11-27 17:10] VITALS: BP 134/88; PULSE 97; RESP 16; TEMP 37.1; O2SAT 98
[2022-11-27] MEDS: chlorproMAZINE HCl 25 MG TABLET 50 MG PO (17:14)
[2022-11-27] MEDS: Lithium Carbonate 300 MG CAPSULE 1200 MG PO (19:05)
[2022-11-27] MEDS: OLANZapine ODT 10 MG TAB.RAPDIS 30 MG TRANSLINGU (19:05)
[2022-11-27] MEDS: clonazePAM 0.5 MG TABLET PO (19:06)
[2022-11-27] MEDS: Melatonin 3 MG TABLET PO (19:06)
[2022-11-28 08:47] VITALS: BP 128/78; PULSE 96; RESP 18; TEMP 36.4; O2SAT 98
[2022-11-28] MEDS: chlorproMAZINE HCl 25 MG TABLET 50 MG PO ×2 (08:49→14:08)
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
[2022-11-28 11:03] LABS: MANUAL DIFF FLAG NO
[2022-11-28 11:05] LABS: Basophils Percent Auto 0.3 % (0-2); Eosinophils Absolute Auto 0.1 X10*3/uL (0.0-0.4); Eosinophils Percent Auto 1.7 % (0-4); Hemoglobin 12.8 g/dl (14.0-18.0); Imm Gran Abs Auto 0.02 X10*3/uL (0.00-0.03); Imm Gran Pct Auto 0.3 % (0.0-0.4); Lymphocytes Absolute Auto 1.2 X10*3/uL (1.2-4.9); Lymphocytes Percent Auto 19.6 % (20-40); Mean Corpuscular HGB Conc 32.8 g/dl (31.0-36.0); Mean Corpuscular Hemoglobin 29.2 pg (27.0-33.0); Mean Corpuscular Volume 88.8 fL (80.0-98.0); Monocytes Absolute Auto 0.5 X10*3/uL (0.1-1.2); Monocytes Percent Auto 8.2 % (2-11); Neutrophils Absolute Auto 4.2 x10*3/uL (2.0-8.3); Neutrophils Percent Auto 69.9 % (45-73); Platelet Count 275 X10*3/uL (160-400); Red Blood Count 4.39 X10*6/uL (4.60-5.80); Red Cell Distribution Width 12.3 % (11.0-16.0)
[2022-11-28 11:17] LABS: Lithium 0.39 mmol/L (0.60-1.20)
[2022-11-28] MEDS: cloZAPine 25 MG TABLET PO (11:17)
--- NOTE | 2022-11-28 17:13 | HO.PSYCHPN ---
Subjective Subjective Date of Service: 11/28/22 Reason For Visit: chauncey Interim History: Met with patient; discussed in teams; met again with patient and social director. Called Dr. Brian outpatient provider and left message. Enrolled patient in clozapine rems program Patient ambivalent about clozapine but agrees to continue taking it. He is adamant that he will be discharged in 2 weeks which loan underwriter said that is the goal but reiterated that will continue taking 1 day at a time and have to continually assess. Patient accepted this. Patient came to loan underwriter several other times during the day to have the same conversation again but seemed to be accepting. No medication side effect He denies any new perceived threats from patients, though continues to believe the old ones are real. Mental Status Exam Mental Status Exam Narrative: Pt is alert and oriented; behavior is less agitated,but anxious and guarded; overly formal calling loan underwriter sir; little more can be cooperative and calm; dressed in casual attire with long, unkempt, glasses,; with adequate hygiene; mood is described ok and affect is anxious and constricted; eye contact appropriate to glaring; Speech is normal rate, volume; normal prosody; not pressured; psychomotor agitation present; thought process is goal directed; Thought content is with paranoid, persecutory delusional and grandiose thoughts and on discharge; can be pertinent to relevant topics when asked; denies any SI/HI. Denies AVH however is internally preoccupied at times. Patients insight and judgment are impaired Diagnostics Vital Signs (24Hr): Vital Signs - 24 hr 11/28/22 08:47 Temperature 97.6 F Pulse Rate 96 Respiratory Rate 18 Blood Pressure 128/78 Pulse Oximetry 98 Oxygen Delivery Method Room Air BMI result Body Mass Index 24.1 Labs 11/28/22 10:59 11/08/22 08:34 Labs: Laboratory Results - last 48 hr 11/28/22 11/28/22 10:59 10:59 WBC 6.0 RBC 4.39 L Hgb 12.8 L Hct 39.0 L MCV 88.8 MCH 29.2 MCHC 32.8 RDW 12.3 Plt Count 275 MPV 10.0 Immature Gran % (Auto) 0.3 Neut % (Auto) 69.9 Lymph % (Auto) 19.6 L [place] % (Auto) 8.2 Eos % (Auto) 1.7 Baso % (Auto) 0.3 Lymph # (Auto) 1.2 [place] # (Auto) 0.5 Eos # (Auto) 0.1 Baso # (Auto) 0.0 Abs Immat Gran (auto) 0.02 Absolute Neuts (auto) 4.2 Absolute Nucleated RBC 0.000 Nucleated RBC % (auto) 0.0 [place] 0.39 L Medications Medications Current Medications Acetaminophen (Acetaminophen 325 Mg Tablet) 650 mg PO Q6H PRN PRN Reason: Headache/Pain Mild Scale (1-3) Last Admin: 11/26/22 19:51 Dose: 650 mg Al Hydroxide/Mg Hydroxide (Magnesium Hydrox/Alum Hydrox 30 Ml Oral.Susp) 30 ml PO Q6H PRN PRN Reason: Heartburn/Nausea Last Admin: 11/11/22 17:24 Dose: 30 ml Benztropine Mesylate (Benztropine Mesylate 0.5 Mg Tablet) 0.5 mg PO TID PRN PRN Reason: Extrapyramidal Effects Chlorpromazine HCl (Chlorpromazine Hcl 25 Mg Tablet) 50 mg PO Q4H PRN PRN Reason: anxiety/agitation Last Admin: 11/28/22 14:08 Dose: 50 mg Clonazepam (Clonazepam 0.5 Mg Tablet) 0.5 mg PO BEDTIME VIC Last Admin: 11/27/22 19:06 Dose: 0.5 mg [place] Carbonate ([place] Carbonate 300 Mg Capsule) 1,200 mg PO BEDTIME VIC Last Admin: 11/27/22 19:05 Dose: 1,200 mg Magnesium Hydroxide (Milk Of Magnesia 30 Ml Oral.Susp) 30 ml PO DAILY PRN PRN Reason: Constipation Melatonin (Melatonin 3 Mg Tablet) 3 mg PO BEDTIME VIC Last Admin: 11/27/22 19:06 Dose: 3 mg Melatonin (Melatonin 3 Mg Tablet) 3 mg PO BEDTIME PRN PRN Reason: continued insomnia Nicotine Polacrilex (Nicotine Polacrilex 2 Mg Gum) 4 mg BUCCAL Q2H PRN PRN Reason: Nicotine Cravings Last Admin: 11/24/22 17:22 Dose: 4 mg Olanzapine (Olanzapine Odt 10 Mg Tab.Rapdis) 30 mg TRANSLINGU BEDTIME VIC Last Admin: 11/27/22 19:05 Dose: 30 mg Allergies Allergies Allergy/AdvReac Type Severity Reaction Status Date / Time No Known Allergies Allergy Verified 02/22/22 16:29 Assessment & Plan Assessment & Plan (1) Schizoaffective disorder, bipolar type: Status: Acute Code(s): F25.0 - Schizoaffective disorder, bipolar type (2) Chronic post-traumatic stress disorder (PTSD): Status: Acute Code(s): F43.12 - Post-traumatic stress disorder, chronic (3) Alcohol abuse: Status: Acute Code(s): F10.10 - Alcohol abuse, uncomplicated Plan Patient is a 22-year-old male with history of bipolar disorder type 1, alcohol abuse/dependence, PTSD discharged from 05/04/2022 and here for his 3rd inpatient admission in less than 1 year,, who Self presents for paranoid ideations that he is being followed by people who want to harm him in the face of having gone off his medication this past summer and relapsing with alcohol.? In the ED patient disrobing, disorganized; received Haldol for p.r.n. received Haldol as a p.r.n. -patient has history of severe manic episodes with significant psychotic features and extensive delusional beliefs that render him unable to function.? Patient also has PTSD and seems to frequently looked alcohol as a coping strategy.? On medication symptoms significantly decrease but it has never been clear whether patient has insight 10/30 patient remains with odd behavior; he is guarded and does not reveal much; remains internally preoccupied 10/31 patient psychotic with paranoid delusions.? Edging Machine Setter reassess is diagnosis and sees that patient has psychotic symptoms even when not? manic and will change diagnosis to schizoaffective.? Patient says it is okay for loan underwriter to adjust medications and that he will take whatever loan underwriter thinks past 11/01 remains with severe paranoid delusions 11/02 patient sleeping and hypomanic; remains with intense paranoid delusions including feeling that there are peers on the unit conspiring to intimidate him; patient does agree that he seems to run into trouble when he stops taking his medications, however no insight into psychiatric illness 11/03 paranoid delusions and manic behaviors persist; patient is paranoid making accusations against multiple peers thinking there conspiring against him.? Patient has no insight.? Labs returned today showing subtherapeutic lithium dose so will increase.? Patient put in another 3 day.? However he remains paranoid and accusatory to other peers, provoking them and at this time is unsafe to return to the community 11/04 remains with paranoid delusions;?Discussed case with nursing; met with patient; reviewed vitals and tachycardic 11/05 no change; continues to have paranoid and delusional thoughts; unwanted approaches to other peers on the unit who are afraid of him due to his behaviors.? Continues to insist that multiple people on the unit and in the community have plans to harm him and that he is afraid.? At this time loan underwriter is concerned for his safety.? Mahtowa dose recently increased and needs time to become therapeutic.? Will continue to assess. 11/06 patient remains with severe paranoid and grandiose delusions; he thinks that peers are conspiring against him and says he is afraid for his safety; remains without any insight.? Says he does not want to take Geodon or lithium.? Patient is accusatory and sometimes aggressively posturing towards staff and peers.? Patient is at risk for inciting pre-emptive or retaliatory aggression from others he is accusing and challenging.? Edging Machine Setter and team agreed that patient is not safe for discharge to the community.? Discussed with team who agree that while sometimes patients chauncey can be addressed with medication, medications have yet to significantly erode paranoid delusions; however patient is not open to medication changes at this time. 11/07 severe, paranoid persecutory delusions, just during provoking to others whom he delusionally believes are conspiring against him.? Refused medications last night, though took them today. 11/08 remains with paranoid delusions, but did sleep last night. Agrees to trial of Zyprexa (will go with this med since some partial response in past and may have gotten dystonia from typical antipsychotic in ED) 11/13 remains with paranoid delusions, grandiose, or provocative towards peers whom he believes are conspiring against him. 11/14 remains with paranoid delusions, thinks people on the unit are trying to kill him. 11/15 no reduction in symptoms; will increase total daily Zyprexa dose to 40 mg.? Literature shows that typically if an antipsychotic is going to work skilled nursing for a person, it affords some reduction in symptoms early on even within a day or two; if patient's psychotic symptoms do not improve soon, will conclude that Zyprexa is not effective.? Clozapine remains the preferred medication however patient currently refuses.? Some concern for dystonic reaction from Haldol received in the emergency room;? will consider alternative 1st generation antipsychotics as well. -patient's mother is worried about vitamin-D and vitamin B deficiency; while these are rare and even less likely to have a clinical significance, will order lab work as patient agrees. 11/16 pt opening up about hx of trauma; unable to make connection with current paranoid delusion. Pt says he hates medications and thinks they are hurting him. Nursing concerned that patient is trying to check medication; will switch to Zydis 11/17 little less provocative towards peers but remains with florid paranoid and grandiose delusions. Last night patient initially refused his medications, but then later decided to take them. Today patient said he is trying to decide whether or not he should stop taking all the medications and challenge this loan underwriter in court or just continue taking medications, be in compliance and discharge.? He says he does not think the meds are working; does not think he needs them... 11/18: Continue current tx plan. Edging Machine Setter has concerns that patient is not taking medication as prescribed.? He consistently says things like he does not like them, thinks they are bad for him, does not want them.? Nursing concerned that patient trying to cheek his medication, prompting loan underwriter to change Zyprexa to oral disintegrating tablet Zydis, which is much more quickly bioavailable.? Also his lithium level on 11/17 is subtherapeutic at 0.31 And it is lower than it was when patient was taking a lower dose of lithium measured on 11/03 (0.46)implying that patient has been avoiding taking this medication consistently. Pt taking total daily Mahtowa dose of 900mg. Mahtowa level 0.46 on 11/03/22 Pt taking total daily Mahtowa dose of 1200mg. Mahtowa level 0.31 on 11/17/22 At this point loan underwriter still does not know if these medications can be effective as it seems likely patient is not adhering with regimen; this also makes it hard to know if they should be titrated (given risk of lithium toxicity). And Even while he's getting some amount of medication in him, he remains with florid paranoid, persecutory and grandiose delusions and mistakenly thinks others are conspiring and threatening to harm him. Patient has little to no insight into his psychiatric illness.? Edging Machine Setter has no reason to believe that patient will continue taking medications on discharge; almost daily, he expresses his belief that the medications are bad for him and he does not need them...and, it's questionable that he's fully taking them even now, despite having 14/05 supervision and redirection from trained staff.? If patient to discharge at this time, he would remain unsafe in the community. 11/21 patient less agitated and provocative on the unit, more calm. He does not bring up paranoid delusional thinking unless it is solicited. That said, patient remains with paranoid and grandiose delusions. And loan underwriter thinks it is unlikely that patient will continue medications once discharged. Concern is that current medication regimen seems able to calm down the chauncey, and perhaps taken edge off some of the moment to moment paranoid thinking, however they do not seem to resolve the paranoid/grandiose delusions. 2/ less manic; less intrusive to others; still delusional but not expressing as much 2/2 dc morning Zydis since pt may remain at current stability at total daily dose of 30mg and once a day dosing will help encourage continued adherence post discharge; will also dc vitamins as pt is eating well and again, to lessen pill-taking burden in effort to enhance adherence 2/3 expresses improved insight, sharing his consideration that beliefs may have been dreams and current ambivalence regarding if beliefs are delusional vs true. That said, in the past, pt once admitted to loan underwriter that he fooled loan underwriter by pretending to no longer believe his delusional thoughts, saying they delusions....only since he knew that was what loan underwriter wanted to hear. It's possible that pt is ambivalent and also that if he remains on meds, insight will improve -currently pt is no longer perceiving threats from peers and he's no longer intrusive; not talking about delusional thoughts to others; he's sleeping and eating well; taking his meds; if he remains at current level of stability will consider dc home as mother feels ok about his discharge. He refuses to try clozapine which would be main reason to keep him longer. 11/26/22: no changes 11/27 patient decompensated, and is again expressing feeling threatened on the unit by peers and going on about paranoid, grandiose delusions; possibly due to Zyprexa being lowered to 30 mg, down from 40 mg; patient however also revealed that last week he was just telling loan underwriter what loan underwriter wanted to hear. Regardless, patient has regressed back to being unable to contain paranoid delusions. Patient at 1st refused any medication changes demanding discharge or court. Later patient changed his mind and said he is willing to stay longer intake clozapine. Despite taking medications which her delivered to him by staff, patient's symptoms have worsened and Patient is again mistakenly accusing others of making violent threats towards him; he is again confrontational. Currently patient requires staff supervision 14/05 to help with redirection and to avert conflict with peers. Patient is also checked every 15 minutes. At this time there is no less restrictive setting for patient. He has no insight at all and has almost daily said he does not want medication or treatment and does not think he needs it. The only time he says he will take it is and a written statement saying that he will be adherent with his medication as it pertains to him being allowed to discharge. Edging Machine Setter has no reason to believe patient will continue taking medications in the community. Furthermore in the community patient is without trained staff present 24 hours a day to help patient avoid conflict with others. Patient is accusatory and willing to confront people he delusionally perceives is threatening and risks being harmed in the community. 11/28 starting clozapine 25 mg; will titrate; will cross taper Zyprexa as clinically indicated Plan: Petition court for involuntary commitment and medication Q 15 minute checks Start clozapine 25 mg; will titrate ANC weekly ANC checked and within normal limits; patient registered in clozapine rems program add melatonin (at pt's request) GILSON Serna; pt does not like (did help sleep however) Discontinue trazodone; patient says seems to have activated him [place]owa level: 0.31 (subtherapeutic despite being therapeutic at 0.6 6 at same dose). DC ZYDIS 10 mg daily Continue ZYIDIS 30mg qhs . Continue lithium ER 1200mg qhs (this does was subtherapeutic but said nauseus at higher dose); BUN creatinine, TSH, lytes within normal limits Changed to Cogentin 0.5 mg PRN (not sure if dystonic reaction was from Haldol received in the ED or from Geodon or just combination, but has not returned) dc omeprazole; pt says only had couple days of gerd and does not think needs it In the past, these meds partially stabilized manic behaviors but did not resolve delusions: -Depakote ER 250 mg in the morning and 1000 mg q.h.s. -Risperdal 4 mg -Geodon: not effective Med trial Zyprexa: ?partially helpful as prn. Patient educated on: diagnosis and medication risk/benefits Informed Consent: does not understand and further education needed Reason for contiued inpatient stay Substantial Risk for: inability to function Time Spent With Patient Time: Total time managing care of this patient today ____ minutes.
[2022-11-28 19:27] VITALS: BP 118/78; PULSE 82; RESP 16; TEMP 36.6; O2SAT 98
[2022-11-28] MEDS: Lithium Carbonate 300 MG CAPSULE 1200 MG PO (20:07)
[2022-11-28] MEDS: Melatonin 3 MG TABLET PO (20:08)
[2022-11-28] MEDS: OLANZapine ODT 10 MG TAB.RAPDIS 30 MG TRANSLINGU (20:08)
[2022-11-28] MEDS: clonazePAM 0.5 MG TABLET PO (20:08)
[2022-11-29] MEDS: cloZAPine 25 MG TABLET PO ×2 (08:20→20:05)
[2022-11-29 08:30] VITALS: BP 122/76; PULSE 116; RESP 18; TEMP 36.7; O2SAT 98
--- NOTE | 2022-11-29 10:07 | HO.PSYCHPN ---
Subjective Subjective Date of Service: 11/29/22 Reason For Visit: chauncey Interim History: met with patient; discussed in teams pt expressed some paranoid thinking about peers to other staff, but to specification writer said he is not feeling any new threats from peers. He told specification writer that he now believes he was having delusional thinking; however, specification writer discussed that it's ok to believe things different from specification writer and that it's better if he can remain open w/ specification writer regarding what he does and does not believe. Pt expressed much relief hearing this and acknowledged that he does in fact believe these things are true, adding that he experiences them as true, but now will feel more comfortable let specification writer know. He continuous to say he'll take Clozapine and deneis side-effects. Mental Status Exam Mental Status Exam Narrative: Pt is alert and oriented; behavior is less agitated,but anxious and guarded; overly formal calling specification writer sir; little more can be cooperative and calm; dressed in casual attire with long, unkempt, glasses,; with adequate hygiene; mood is described ok and affect is anxious and constricted; eye contact appropriate to glaring; Speech is normal rate, volume; normal prosody; not pressured; psychomotor agitation present; thought process is goal directed; Thought content is with paranoid, persecutory delusional and grandiose thoughts and on discharge; can be pertinent to relevant topics when asked; denies any SI/HI. Denies AVH however is internally preoccupied at times. Patients insight and judgment are impaired Diagnostics Vital Signs (24Hr): Vital Signs - 24 hr 11/28/22 19:27 11/29/22 08:30 Temperature 97.8 F 98.0 F Pulse Rate 82 116 H Respiratory Rate 16 18 Blood Pressure 118/78 122/76 Pulse Oximetry 98 98 Oxygen Delivery Method Room Air Room Air BMI result Body Mass Index 24.1 Labs 11/28/22 10:59 11/08/22 08:34 Labs: Laboratory Results - last 48 hr 11/28/22 11/28/22 10:59 10:59 WBC 6.0 RBC 4.39 L Hgb 12.8 L Hct 39.0 L MCV 88.8 MCH 29.2 MCHC 32.8 RDW 12.3 Plt Count 275 MPV 10.0 Immature Gran % (Auto) 0.3 Neut % (Auto) 69.9 Lymph % (Auto) 19.6 L Fergus % (Auto) 8.2 Eos % (Auto) 1.7 Baso % (Auto) 0.3 Lymph # (Auto) 1.2 Fergus # (Auto) 0.5 Eos # (Auto) 0.1 Baso # (Auto) 0.0 Abs Immat Gran (auto) 0.02 Absolute Neuts (auto) 4.2 Absolute Nucleated RBC 0.000 Nucleated RBC % (auto) 0.0 Lindstrom 0.39 L Medications Medications Current Medications Acetaminophen (Acetaminophen 325 Mg Tablet) 650 mg PO Q6H PRN PRN Reason: Headache/Pain Mild Scale (1-3) Last Admin: 11/26/22 19:51 Dose: 650 mg Al Hydroxide/Mg Hydroxide (Magnesium Hydrox/Alum Hydrox 30 Ml Oral.Susp) 30 ml PO Q6H PRN PRN Reason: Heartburn/Nausea Last Admin: 11/11/22 17:24 Dose: 30 ml Benztropine Mesylate (Benztropine Mesylate 0.5 Mg Tablet) 0.5 mg PO TID PRN PRN Reason: Extrapyramidal Effects Chlorpromazine HCl (Chlorpromazine Hcl 25 Mg Tablet) 50 mg PO Q4H PRN PRN Reason: anxiety/agitation Last Admin: 11/28/22 14:08 Dose: 50 mg Clozapine (Clozapine 25 Mg Tablet) 25 mg PO BID [facility] Last Admin: 11/29/22 08:20 Dose: 25 mg Lindstrom Carbonate (Lindstrom Carbonate 300 Mg Capsule) 1,200 mg PO BEDTIME VIC Last Admin: 11/28/22 20:07 Dose: 1,200 mg Magnesium Hydroxide (Milk Of Magnesia 30 Ml Oral.Susp) 30 ml PO DAILY PRN PRN Reason: Constipation Melatonin (Melatonin 3 Mg Tablet) 3 mg PO BEDTIME VIC Last Admin: 11/28/22 20:08 Dose: 3 mg Melatonin (Melatonin 3 Mg Tablet) 3 mg PO BEDTIME PRN PRN Reason: continued insomnia Nicotine Polacrilex (Nicotine Polacrilex 2 Mg Gum) 4 mg BUCCAL Q2H PRN PRN Reason: Nicotine Cravings Last Admin: 11/24/22 17:22 Dose: 4 mg Olanzapine (Olanzapine Odt 10 Mg Tab.Rapdis) 30 mg TRANSLINGU BEDTIME VIC Last Admin: 11/28/22 20:08 Dose: 30 mg Allergies Allergies Allergy/AdvReac Type Severity Reaction Status Date / Time No Known Allergies Allergy Verified 02/22/22 16:29 Assessment & Plan Assessment & Plan (1) Schizoaffective disorder, bipolar type: Status: Acute Code(s): F25.0 - Schizoaffective disorder, bipolar type (2) Chronic post-traumatic stress disorder (PTSD): Status: Acute Code(s): F43.12 - Post-traumatic stress disorder, chronic (3) Alcohol abuse: Status: Acute Code(s): F10.10 - Alcohol abuse, uncomplicated Plan Patient is a 22-year-old male with history of bipolar disorder type 1, alcohol abuse/dependence, PTSD discharged from 05/04/2022 and here for his 3rd inpatient admission in less than 1 year,, who Self presents for paranoid ideations that he is being followed by people who want to harm him in the face of having gone off his medication this past summer and relapsing with alcohol.? In the ED patient disrobing, disorganized; received Haldol for p.r.n. received Haldol as a p.r.n. -patient has history of severe manic episodes with significant psychotic features and extensive delusional beliefs that render him unable to function.? Patient also has PTSD and seems to frequently looked alcohol as a coping strategy.? On medication symptoms significantly decrease but it has never been clear whether patient has insight 10/30 patient remains with odd behavior; he is guarded and does not reveal much; remains internally preoccupied 10/31 patient psychotic with paranoid delusions.? Skein Winder reassess is diagnosis and sees that patient has psychotic symptoms even when not? manic and will change diagnosis to schizoaffective.? Patient says it is okay for specification writer to adjust medications and that he will take whatever specification writer thinks past 11/01 remains with severe paranoid delusions 11/02 patient sleeping and hypomanic; remains with intense paranoid delusions including feeling that there are peers on the unit conspiring to intimidate him; patient does agree that he seems to run into trouble when he stops taking his medications, however no insight into psychiatric illness 11/03 paranoid delusions and manic behaviors persist; patient is paranoid making accusations against multiple peers thinking there conspiring against him.? Patient has no insight.? Labs returned today showing subtherapeutic lithium dose so will increase.? Patient put in another 3 day.? However he remains paranoid and accusatory to other peers, provoking them and at this time is unsafe to return to the community 11/04 remains with paranoid delusions;?Discussed case with nursing; met with patient; reviewed vitals and tachycardic 11/05 no change; continues to have paranoid and delusional thoughts; unwanted approaches to other peers on the unit who are afraid of him due to his behaviors.? Continues to insist that multiple people on the unit and in the community have plans to harm him and that he is afraid.? At this time specification writer is concerned for his safety.? Lindstrom dose recently increased and needs time to become therapeutic.? Will continue to assess. 11/06 patient remains with severe paranoid and grandiose delusions; he thinks that peers are conspiring against him and says he is afraid for his safety; remains without any insight.? Says he does not want to take Geodon or lithium.? Patient is accusatory and sometimes aggressively posturing towards staff and peers.? Patient is at risk for inciting pre-emptive or retaliatory aggression from others he is accusing and challenging.? Skein Winder and team agreed that patient is not safe for discharge to the community.? Discussed with team who agree that while sometimes patients chauncey can be addressed with medication, medications have yet to significantly erode paranoid delusions; however patient is not open to medication changes at this time. 11/07 severe, paranoid persecutory delusions, just during provoking to others whom he delusionally believes are conspiring against him.? Refused medications last night, though took them today. 11/08 remains with paranoid delusions, but did sleep last night. Agrees to trial of Zyprexa (will go with this med since some partial response in past and may have gotten dystonia from typical antipsychotic in ED) 11/13 remains with paranoid delusions, grandiose, or provocative towards peers whom he believes are conspiring against him. 11/14 remains with paranoid delusions, thinks people on the unit are trying to kill him. 11/15 no reduction in symptoms; will increase total daily Zyprexa dose to 40 mg.? Literature shows that typically if an antipsychotic is going to work jail for a person, it affords some reduction in symptoms early on even within a day or two; if patient's psychotic symptoms do not improve soon, will conclude that Zyprexa is not effective.? Clozapine remains the preferred medication however patient currently refuses.? Some concern for dystonic reaction from Haldol received in the emergency room;? will consider alternative 1st generation antipsychotics as well. -patient's mother is worried about vitamin-D and vitamin B deficiency; while these are rare and even less likely to have a clinical significance, will order lab work as patient agrees. 11/16 pt opening up about hx of trauma; unable to make connection with current paranoid delusion. Pt says he hates medications and thinks they are hurting him. Nursing concerned that patient is trying to check medication; will switch to Zydis 11/17 little less provocative towards peers but remains with florid paranoid and grandiose delusions. Last night patient initially refused his medications, but then later decided to take them. Today patient said he is trying to decide whether or not he should stop taking all the medications and challenge this specification writer in court or just continue taking medications, be in compliance and discharge.? He says he does not think the meds are working; does not think he needs them... 11/18: Continue current tx plan. Skein Winder has concerns that patient is not taking medication as prescribed.? He consistently says things like he does not like them, thinks they are bad for him, does not want them.? Nursing concerned that patient trying to cheek his medication, prompting specification writer to change Zyprexa to oral disintegrating tablet Zydis, which is much more quickly bioavailable.? Also his lithium level on 11/17 is subtherapeutic at 0.31 And it is lower than it was when patient was taking a lower dose of lithium measured on 11/03 (0.46)implying that patient has been avoiding taking this medication consistently. Pt taking total daily Lindstrom dose of 900mg. Lindstrom level 0.46 on 11/03/22 Pt taking total daily Lindstrom dose of 1200mg. Lindstrom level 0.31 on 11/17/22 At this point specification writer still does not know if these medications can be effective as it seems likely patient is not adhering with regimen; this also makes it hard to know if they should be titrated (given risk of lithium toxicity). And Even while he's getting some amount of medication in him, he remains with florid paranoid, persecutory and grandiose delusions and mistakenly thinks others are conspiring and threatening to harm him. Patient has little to no insight into his psychiatric illness.? Skein Winder has no reason to believe that patient will continue taking medications on discharge; almost daily, he expresses his belief that the medications are bad for him and he does not need them...and, it's questionable that he's fully taking them even now, despite having 14/05 supervision and redirection from trained staff.? If patient to discharge at this time, he would remain unsafe in the community. 11/21 patient less agitated and provocative on the unit, more calm. He does not bring up paranoid delusional thinking unless it is solicited. That said, patient remains with paranoid and grandiose delusions. And specification writer thinks it is unlikely that patient will continue medications once discharged. Concern is that current medication regimen seems able to calm down the chauncey, and perhaps taken edge off some of the moment to moment paranoid thinking, however they do not seem to resolve the paranoid/grandiose delusions. 2/1 less manic; less intrusive to others; still delusional but not expressing as much 2/2 dc morning Zydis since pt may remain at current stability at total daily dose of 30mg and once a day dosing will help encourage continued adherence post discharge; will also dc vitamins as pt is eating well and again, to lessen pill-taking burden in effort to enhance adherence 2/3 expresses improved insight, sharing his consideration that beliefs may have been dreams and current ambivalence regarding if beliefs are delusional vs true. That said, in the past, pt once admitted to specification writer that he fooled specification writer by pretending to no longer believe his delusional thoughts, saying they delusions....only since he knew that was what specification writer wanted to hear. It's possible that pt is ambivalent and also that if he remains on meds, insight will improve -currently pt is no longer perceiving threats from peers and he's no longer intrusive; not talking about delusional thoughts to others; he's sleeping and eating well; taking his meds; if he remains at current level of stability will consider dc home as mother feels ok about his discharge. He refuses to try clozapine which would be main reason to keep him longer. 11/26/22: no changes 11/27 patient decompensated, and is again expressing feeling threatened on the unit by peers and going on about paranoid, grandiose delusions; possibly due to Zyprexa being lowered to 30 mg, down from 40 mg; patient however also revealed that last week he was just telling specification writer what specification writer wanted to hear. Regardless, patient has regressed back to being unable to contain paranoid delusions. Patient at 1st refused any medication changes demanding discharge or court. Later patient changed his mind and said he is willing to stay longer intake clozapine. Despite taking medications which her delivered to him by staff, patient's symptoms have worsened and Patient is again mistakenly accusing others of making violent threats towards him; he is again confrontational. Currently patient requires staff supervision 14/05 to help with redirection and to avert conflict with peers. Patient is also checked every 15 minutes. At this time there is no less restrictive setting for patient. He has no insight at all and has almost daily said he does not want medication or treatment and does not think he needs it. The only time he says he will take it is and a written statement saying that he will be adherent with his medication as it pertains to him being allowed to discharge. Skein Winder has no reason to believe patient will continue taking medications in the community. Furthermore in the community patient is without trained staff present 24 hours a day to help patient avoid conflict with others. Patient is accusatory and willing to confront people he delusionally perceives is threatening and risks being harmed in the community. 11/28 starting clozapine 25 mg; will titrate; will cross taper Zyprexa as clinically indicated 11/29 continue tx Plan: Petition court for involuntary commitment and medication Q 15 minute checks Continue clozapine 25 mg in AM Clozapine 25mg qhs; will titrate, increase by 25mg daily as tolerated ANC weekly ANC checked and within normal limits; patient registered in clozapine rems program add melatonin (at pt's request) DC Daphne; pt does not like (did help sleep however) Discontinue trazodone; patient says seems to have activated him Lindstrom level: 0.31 (subtherapeutic despite being therapeutic at 0.6 6 at same dose). DC ZYDIS 10 mg daily Continue ZYIDIS 30mg qhs . Continue lithium ER 1200mg qhs (this does was subtherapeutic but said nauseus at higher dose); BUN creatinine, TSH, lytes within normal limits Changed to Cogentin 0.5 mg PRN (not sure if dystonic reaction was from Haldol received in the ED or from Geodon or just combination, but has not returned) dc omeprazole; pt says only had couple days of gerd and does not think needs it In the past, these meds partially stabilized manic behaviors but did not resolve delusions: -Depakote ER 250 mg in the morning and 1000 mg q.h.s. -Risperdal 4 mg -Geodon: not effective Med trial Zyprexa: ?partially helpful as prn. Patient educated on: diagnosis, medication risk/benefits and therapeutic strategies Informed Consent: understands Reason for contiued inpatient stay Substantial Risk for: inability to function Time Spent With Patient Time: Total time managing care of this patient today ____ minutes.
[2022-11-29] MEDS: chlorproMAZINE HCl 25 MG TABLET 50 MG PO (14:09)
[2022-11-29 18:00] VITALS: BP 130/77; PULSE 96; TEMP 36.7; O2SAT 99
[2022-11-29] MEDS: Lithium Carbonate 300 MG CAPSULE 1200 MG PO (20:05)
[2022-11-29] MEDS: OLANZapine ODT 10 MG TAB.RAPDIS 30 MG TRANSLINGU (20:05)
[2022-11-29] MEDS: Melatonin 3 MG TABLET PO (20:05)
[2022-11-30 06:00] VITALS: BP 130/75; PULSE 76; RESP 16; TEMP 36.7; O2SAT 100
[2022-11-30] MEDS: cloZAPine 25 MG TABLET PO (08:13)
[2022-11-30 08:46] VITALS: BMI 24.0
--- NOTE | 2022-11-30 10:26 | P.PNPSI_ITS ---
Subjective Subjective Date of Service: 11/30/22 Reason For Visit: chauncey Interim History: Met with patient; discussed in teams Patient says he is doing okay and agrees to continue taking clozapine and stay the remaining 2 weeks. He says he is very anxious that he will be discharged to weeks from now but accepted that this is the overall plan and that teletypewriter installer is hopeful it will work out this way. Patient said that he talked with his mother who is very encouraged he is on clozapine and says she will take him every week to get his blood drawn. Patient denies having feeling any threats from an AP years; says he slept well last night. No other complaints or requests. Mental Status Exam Mental Status Exam Narrative: Pt is alert and oriented; behavior is cooperative and more calm; anxious but less so; overly formal calling teletypewriter installer sir; ; dressed in casual attire with long, unkempt hair, glasses,; with adequate hygiene; mood is described ok and affect is anxious and constricted; eye contact appropriate; Speech is normal rate, volume; normal prosody; not pressured; some mild to moderate psychomotor agitation present; thought process is goal directed; Thought content is with paranoid delusions and grandiose thoughts but not expressing unless asked; able to be pertinent to relevant topics discussed; denies any SI/HI. Denies AVH; though some internal preoccupations. Patients insight and judgment are impaired Diagnostics Vital Signs (24Hr): Vital Signs - 24 hr 11/29/22 18:00 11/30/22 06:00 Temperature 98.0 F 98.1 F Pulse Rate 96 76 Respiratory Rate 16 Blood Pressure 130/77 130/75 Pulse Oximetry 99 100 Oxygen Delivery Method Room Air Room Air BMI result Body Mass Index 24.0 Labs 11/28/22 10:59 11/08/22 08:34 Labs: Laboratory Results - last 48 hr 11/28/22 11/28/22 10:59 10:59 WBC 6.0 RBC 4.39 L Hgb 12.8 L Hct 39.0 L MCV 88.8 MCH 29.2 MCHC 32.8 RDW 12.3 Plt Count 275 MPV 10.0 Immature Gran % (Auto) 0.3 Neut % (Auto) 69.9 Lymph % (Auto) 19.6 L [place] % (Auto) 8.2 Eos % (Auto) 1.7 Baso % (Auto) 0.3 Lymph # (Auto) 1.2 [place] # (Auto) 0.5 Eos # (Auto) 0.1 Baso # (Auto) 0.0 Abs Immat Gran (auto) 0.02 Absolute Neuts (auto) 4.2 Absolute Nucleated RBC 0.000 Nucleated RBC % (auto) 0.0 Penrose 0.39 L Medications Medications Current Medications Acetaminophen (Acetaminophen 325 Mg Tablet) 650 mg PO Q6H PRN PRN Reason: Headache/Pain Mild Scale (1-3) Last Admin: 11/26/22 19:51 Dose: 650 mg Al Hydroxide/Mg Hydroxide (Magnesium Hydrox/Alum Hydrox 30 Ml Oral.Susp) 30 ml PO Q6H PRN PRN Reason: Heartburn/Nausea Last Admin: 11/11/22 17:24 Dose: 30 ml Benztropine Mesylate (Benztropine Mesylate 0.5 Mg Tablet) 0.5 mg PO TID PRN PRN Reason: Extrapyramidal Effects Chlorpromazine HCl (Chlorpromazine Hcl 25 Mg Tablet) 50 mg PO Q4H PRN PRN Reason: anxiety/agitation Last Admin: 11/29/22 14:09 Dose: 50 mg Clonazepam (Clonazepam 0.5 Mg Tablet) 0.5 mg PO BEDTIME PRN PRN Reason: insomnia Clozapine (Clozapine 25 Mg Tablet) 25 mg PO BID PENDING SALE TO [facility] Last Admin: 11/30/22 08:13 Dose: 25 mg Penrose Carbonate (Penrose Carbonate 300 Mg Capsule) 1,200 mg PO BEDTIME VIC Last Admin: 11/29/22 20:05 Dose: 1,200 mg Magnesium Hydroxide (Milk Of Magnesia 30 Ml Oral.Susp) 30 ml PO DAILY PRN PRN Reason: Constipation Melatonin (Melatonin 3 Mg Tablet) 3 mg PO BEDTIME VIC Last Admin: 11/29/22 20:05 Dose: 3 mg Melatonin (Melatonin 3 Mg Tablet) 3 mg PO BEDTIME PRN PRN Reason: continued insomnia Nicotine Polacrilex (Nicotine Polacrilex 2 Mg Gum) 4 mg BUCCAL Q2H PRN PRN Reason: Nicotine Cravings Last Admin: 11/24/22 17:22 Dose: 4 mg Olanzapine (Olanzapine Odt 10 Mg Tab.Rapdis) 30 mg TRANSLINGU BEDTIME VIC Last Admin: 11/29/22 20:05 Dose: 30 mg Allergies Allergies Allergy/AdvReac Type Severity Reaction Status Date / Time No Known Allergies Allergy Verified 02/22/22 16:29 Assessment & Plan Assessment & Plan (1) Schizoaffective disorder, bipolar type: Status: Acute Code(s): F25.0 - Schizoaffective disorder, bipolar type (2) Chronic post-traumatic stress disorder (PTSD): Status: Acute Code(s): F43.12 - Post-traumatic stress disorder, chronic (3) Alcohol abuse: Status: Acute Code(s): F10.10 - Alcohol abuse, uncomplicated Plan Patient is a 22-year-old male with history of bipolar disorder type 1, alcohol abuse/dependence, PTSD discharged from 05/04/2022 and here for his 3rd inpatient admission in less than 1 year,, who Self presents for paranoid ideations that he is being followed by people who want to harm him in the face of having gone off his medication this past summer and relapsing with alcohol.? In the ED patient disrobing, disorganized; received Haldol for p.r.n. received Haldol as a p.r.n. -patient has history of severe manic episodes with significant psychotic features and extensive delusional beliefs that render him unable to function.? Patient also has PTSD and seems to frequently looked alcohol as a coping strategy.? On medication symptoms significantly decrease but it has never been clear whether patient has insight 10/30 patient remains with odd behavior; he is guarded and does not reveal much; remains internally preoccupied 10/31 patient psychotic with paranoid delusions.? Rehabilitation Consultant reassess is diagnosis and sees that patient has psychotic symptoms even when not? manic and will change diagnosis to schizoaffective.? Patient says it is okay for teletypewriter installer to adjust medications and that he will take whatever teletypewriter installer thinks past 11/01 remains with severe paranoid delusions 11/02 patient sleeping and hypomanic; remains with intense paranoid delusions including feeling that there are peers on the unit conspiring to intimidate him; patient does agree that he seems to run into trouble when he stops taking his medications, however no insight into psychiatric illness 11/03 paranoid delusions and manic behaviors persist; patient is paranoid making accusations against multiple peers thinking there conspiring against him.? Patient has no insight.? Labs returned today showing subtherapeutic lithium dose so will increase.? Patient put in another 3 day.? However he remains paranoid and accusatory to other peers, provoking them and at this time is unsafe to return to the community 11/04 remains with paranoid delusions;?Discussed case with nursing; met with patient; reviewed vitals and tachycardic 11/05 no change; continues to have paranoid and delusional thoughts; unwanted approaches to other peers on the unit who are afraid of him due to his be haviors.? Continues to insist that multiple people on the unit and in the community have plans to harm him and that he is afraid.? At this time teletypewriter installer is concerned for his safety.? Penrose dose recently increased and needs time to become therapeutic.? Will continue to assess. 11/06 patient remains with severe paranoid and grandiose delusions; he thinks that peers are conspiring against him and says he is afraid for his safety; remains without any insight.? Says he does not want to take Geodon or lithium.? Patient is accusatory and sometimes aggressively posturing towards staff and peers.? Patient is at risk for inciting pre-emptive or retaliatory aggression from others he is accusing and challenging.? Rehabilitation Consultant and team agreed that patient is not safe for discharge to the community.? Discussed with team who agree that while sometimes patients chauncey can be addressed with medication, medications have yet to significantly erode paranoid delusions; however patient is not open to medication changes at this time. 11/07 severe, paranoid persecutory delusions, just during provoking to others whom he delusionally believes are conspiring against him.? Refused medications last night, though took them today. 11/08 remains with paranoid delusions, but did sleep last night. Agrees to trial of Zyprexa (will go with this med since some partial response in past and may have gotten dystonia from typical antipsychotic in ED) 11/13 remains with paranoid delusions, grandiose, or provocative towards peers whom he believes are conspiring against him. 11/14 remains with paranoid delusions, thinks people on the unit are trying to kill him. 11/15 no reduction in symptoms; will increase total daily Zyprexa dose to 40 mg.? Literature shows that typically if an antipsychotic is going to work custodial for a person, it affords some reduction in symptoms early on even within a day or two; if patient's psychotic symptoms do not improve soon, will conclude that Zyprexa is not effective.? Clozapine remains the preferred medication however patient currently refuses.? Some concern for dystonic reaction from Haldol received in the emergency room;? will consider alternative 1st generation antipsychotics as well. -patient's mother is worried about vitamin-D and vitamin B deficiency; while these are rare and even less likely to have a clinical significance, will order lab work as patient agrees. 11/16 pt opening up about hx of trauma; unable to make connection with current paranoid delusion. Pt says he hates medications and thinks they are hurting him. Nursing concerned that patient is trying to check medication; will switch to Zydis 11/17 little less provocative towards peers but remains with florid paranoid and grandiose delusions. Last night patient initially refused his medications, but then later decided to take them. Today patient said he is trying to decide whether or not he should stop taking all the medications and challenge this teletypewriter installer in court or just continue taking medications, be in compliance and discharge.? He says he does not think the meds are working; does not think he needs them... 11/18: Continue current tx plan. Rehabilitation Consultant has concerns that patient is not taking medication as prescribed.? He consistently says things like he does not like them, thinks they are bad for hi m, does not want them.? Nursing concerned that patient trying to cheek his medication, prompting teletypewriter installer to change Zyprexa to oral disintegrating tablet Zydis, which is much more quickly bioavailable.? Also his lithium level on 11/17 is subtherapeutic at 0.31 And it is lower than it was when patient was taking a lower dose of lithium measured on 11/03 (0.46)implying that patient has been avoiding taking this medication consistently. Pt taking total daily Penrose dose of 900mg. Penrose level 0.46 on 11/03/22 Pt taking total daily Penrose dose of 1200mg. Penrose level 0.31 on 11/17/22 At this point teletypewriter installer still does not know if these medications can be effective as it seems likely patient is not adhering with regimen; this also makes it hard to know if they should be titrated (given risk of lithium toxicity). And Even while he's getting some amount of medication in him, he remains with florid p aranoid, persecutory and grandiose delusions and mistakenly thinks others are conspiring and threatening to harm him. Patient has little to no insight into his psychiatric illness.? Rehabilitation Consultant has no reason to believe that patient will continue taking medications on discharge; almost daily, he expresses his belief that the medications are bad for him and he does not need them...and, it's questionable that he's fully taking them even now, despite having 14/05 supervision and redirection from trained staff.? If patient to discharge at this time, he would remain unsafe in the community. 11/21 patient less agitated and provocative on the unit, more calm. He does not bring up paranoid delusional thinking unless it is solicited. That said, patient remains with paranoid and grandiose delusions. And teletypewriter installer thinks it is unlikely that patient will continue medications once discharged. Concern is th at current medication regimen seems able to calm down the chauncey, and perhaps taken edge off some of the moment to moment paranoid thinking, however they do not seem to resolve the paranoid/grandiose delusions. 2/1 less manic; less intrusive to others; still delusional but not expressing as much 2/2 dc morning Zydis since pt may remain at current stability at total daily dose of 30mg and once a day dosing will help encourage continued adherence post discharge; will also dc vitamins as pt is eating well and again, to lessen pill- taking burden in effort to enhance adherence 2/3 expresses improved insight, sharing his consideration that beliefs may have been dreams and current ambivalence regarding if beliefs are delusional vs true. That said, in the past, pt once admitted to teletypewriter installer that he fooled teletypewriter installer by pretending to no longer believe his delusional thoughts, saying they delusions....only since he knew that was what teletypewriter installer wanted to hear. It's possible that pt is ambivalent and also that if he remains on meds, insight will improve -currently pt is no longer perceiving threats from peers and he's no longer intrusive; not talking about delusional thoughts to others; he's sleeping and eating well; taking his meds; if he remains at current level of stability will consider dc home as mother feels ok about his discharge. He refuses to try clozapine which would be main reason to keep him longer. 11/26/22: no changes 11/27 patient decompensated, and is again expressing feeling threatened on the unit by peers and going on about paranoid, grandiose delusions; possibly due to Zyprexa being lowered to 30 mg, down from 40 mg; patient however also revealed that last week he was just telling teletypewriter installer what teletypewriter installer wanted to hear. Regardless, patient has regressed back to being unable to contain paranoid delusions. Patient at 1st refused any medication changes demanding discharge or court. Later patient changed his mind and said he is willing to stay longer intake clozapine. Despite taking medications which her delivered to him by staff, patient's symptoms have worsened and Patient is again mistakenly accusing others of making violent threats towards him; he is again confrontational. Currently patient requires staff supervision 14/05 to help with redirection and to avert conflict with peers. Patient is also checked every 15 minutes. At this time there is no less restrictive setting for patient. He has no insight at all and has almost daily said he does not want medication or treatment and does not think he needs it. The only time he says he will take it is and a written statement saying that he will be adherent with his medication as it pertains to him being allowed to discharge. Rehabilitation Consultant has no reason to believe patient will continue taking medications in the community. Furthermore in the community patient is without trained staff present 24 hours a day to help patient avoid conflict with others. Patient is accusatory and willing to confront people he delusionally perceives is threatening and risks being harmed in the community. 11/28 starting clozapine 25 mg; will titrate; will cross taper Zyprexa as clinically indicated 11/29 continue tx 11/30 continue titration of clozapine; patient denies any new experiences of threats from peers Plan: Petition court for involuntary commitment and medication; currently continuance Q 15 minute checks Continue clozapine 25 mg in AM INCrease to Clozapine 50mg qhs; (will titrate, increase by 25mg daily as tolerated) ANC weekly ANC checked and within normal limits; patient registered in clozapine rems program add melatonin (at pt's request) GILSON Serna; pt does not like (did help sleep however) Discontinue trazodone; patient says seems to have activated him Penrose level: 0.31 (subtherapeutic despite being therapeutic at 0.6 6 at same dose). DC ZYDIS 10 mg daily Continue ZYIDIS 30mg qhs . Continue lithium ER 1200mg qhs (this does was subtherapeutic but said nauseus at higher dose); BUN creatinine, TSH, lytes within normal limits Changed to Cogentin 0.5 mg PRN (not sure if dystonic reaction was from Haldol received in the ED or from Geodon or just combination, but has not returned) dc omeprazole; pt says only had couple days of gerd and does not think needs it In the past, these meds partially stabilized manic behaviors but did not resolve delusions: -Depakote ER 250 mg in the morning and 1000 mg q.h.s. -Risperdal 4 mg -Geodon: not effective Med trial Zyprexa: ?partially helpful as prn. Patient educated on: diagnosis Informed Consent: understands and further education needed Reason for contiued inpatient stay Substantial Risk for: rapid decompensation Time Spent With Patient Time: Total time managing care of this patient today ____ minutes.
[2022-11-30] MEDS: chlorproMAZINE HCl 25 MG TABLET 50 MG PO ×2 (10:49→16:46)
[2022-11-30] MEDS: cloZAPine 25 MG TABLET 50 MG PO (20:59)
[2022-11-30] MEDS: Lithium Carbonate 300 MG CAPSULE 1200 MG PO (20:59)
[2022-11-30] MEDS: OLANZapine ODT 10 MG TAB.RAPDIS 30 MG TRANSLINGU (21:00)
[2022-11-30] MEDS: clonazePAM 0.5 MG TABLET PO (21:01)
[2022-11-30] MEDS: Melatonin 3 MG TABLET PO (21:02)
[2022-11-30 21:10] VITALS: BP 118/69; PULSE 101; RESP 14; TEMP 36.6
[2022-12-01] MEDS: cloZAPine 25 MG TABLET PO (08:24)
[2022-12-01 08:50] VITALS: BP 128/79; PULSE 106; RESP 16; TEMP 36.4; O2SAT 100
[2022-12-01] MEDS: chlorproMAZINE HCl 25 MG TABLET 50 MG PO (09:43)
--- NOTE | 2022-12-01 10:15 | HO.PSYCHPN ---
Subjective Subjective Date of Service: 12/01/22 Reason For Visit: chauncey Interim History: Met with patient; discussed in teams Patient reports that he is doing well; again asked about discharge and if it could be early but accepts to continue with current plan. Says he remains on board with clozapine and that his mother will drive him to and from for blood draws. Says no perceived threats from peers. Sleeping fine Mental Status Exam Mental Status Exam Narrative: Pt is alert and oriented; behavior is cooperative and more calm; anxious but less so; overly formal calling senior mortgage underwriter sir; dressed in casual attire with long, unkempt hair, glasses,; with adequate hygiene; mood is described good and affect is sometimes anxious and constricted but can be calm too; eye contact appropriate; Speech is normal rate, volume; normal prosody; not pressured; some mild to moderate psychomotor agitation present; thought process is goal directed; Thought content is with paranoid delusions and grandiose thoughts but not expressing unless asked; able to be pertinent to relevant topics discussed; denies any SI/HI. Denies AVH; though some internal preoccupations. Patients insight and judgment are impaired Diagnostics Vital Signs (24Hr): Vital Signs - 24 hr 11/30/22 21:10 12/01/22 08:50 Temperature 97.8 F 97.5 F Pulse Rate 101 H 106 H Respiratory Rate 14 16 Blood Pressure 118/69 128/79 Pulse Oximetry 100 Oxygen Delivery Method Room Air BMI result Body Mass Index 24.0 Labs 11/28/22 10:59 11/08/22 08:34 Medications Medications Current Medications Acetaminophen (Acetaminophen 325 Mg Tablet) 650 mg PO Q6H PRN PRN Reason: Headache/Pain Mild Scale (1-3) Last Admin: 11/26/22 19:51 Dose: 650 mg Al Hydroxide/Mg Hydroxide (Magnesium Hydrox/Alum Hydrox 30 Ml Oral.Susp) 30 ml PO Q6H PRN PRN Reason: Heartburn/Nausea Last Admin: 11/11/22 17:24 Dose: 30 ml Benztropine Mesylate (Benztropine Mesylate 0.5 Mg Tablet) 0.5 mg PO TID PRN PRN Reason: Extrapyramidal Effects Chlorpromazine HCl (Chlorpromazine Hcl 25 Mg Tablet) 50 mg PO Q4H PRN PRN Reason: anxiety/agitation Last Admin: 12/01/22 09:43 Dose: 50 mg Clonazepam (Clonazepam 0.5 Mg Tablet) 0.5 mg PO BEDTIME PRN PRN Reason: insomnia Last Admin: 11/30/22 21:01 Dose: 0.5 mg Clozapine (Clozapine 25 Mg Tablet) 25 mg PO DAILY VIC Last Admin: 12/01/22 08:24 Dose: 25 mg Clozapine (Clozapine 25 Mg Tablet) 50 mg PO BEDTIME VIC Last Admin: 11/30/22 20:59 Dose: 50 mg [place] Carbonate ([place] Carbonate 300 Mg Capsule) 1,200 mg PO BEDTIME VIC Last Admin: 11/30/22 20:59 Dose: 1,200 mg Magnesium Hydroxide (Milk Of Magnesia 30 Ml Oral.Susp) 30 ml PO DAILY PRN PRN Reason: Constipation Melatonin (Melatonin 3 Mg Tablet) 3 mg PO BEDTIME VIC Last Admin: 11/30/22 21:02 Dose: 3 mg Melatonin (Melatonin 3 Mg Tablet) 3 mg PO BEDTIME PRN PRN Reason: continued insomnia Nicotine Polacrilex (Nicotine Polacrilex 2 Mg Gum) 4 mg BUCCAL Q2H PRN PRN Reason: Nicotine Cravings Last Admin: 11/24/22 17:22 Dose: 4 mg Olanzapine (Olanzapine Odt 10 Mg Tab.Rapdis) 30 mg TRANSLINGU BEDTIME VIC Last Admin: 11/30/22 21:00 Dose: 30 mg Allergies Allergies Allergy/AdvReac Type Severity Reaction Status Date / Time No Known Allergies Allergy Verified 02/22/22 16:29 Assessment & Plan Assessment & Plan (1) Schizoaffective disorder, bipolar type: Status: Acute Code(s): F25.0 - Schizoaffective disorder, bipolar type (2) Chronic post-traumatic stress disorder (PTSD): Status: Acute Code(s): F43.12 - Post-traumatic stress disorder, chronic (3) Alcohol abuse: Status: Acute Code(s): F10.10 - Alcohol abuse, uncomplicated Plan Patient is a 22-year-old male with history of bipolar disorder type 1, alcohol abuse/dependence, PTSD discharged from 05/04/2022 and here for his 3rd inpatient admission in less than 1 year,, who Self presents for paranoid ideations that he is being followed by people who want to harm him in the face of having gone off his medication this past summer and relapsing with alcohol.? In the ED patient disrobing, disorganized; received Haldol for p.r.n. received Haldol as a p.r.n. -patient has history of severe manic episodes with significant psychotic features and extensive delusional beliefs that render him unable to function.? Patient also has PTSD and seems to frequently looked alcohol as a coping strategy.? On medication symptoms significantly decrease but it has never been clear whether patient has insight 10/30 patient remains with odd behavior; he is guarded and does not reveal much; remains internally preoccupied 10/31 patient psychotic with paranoid delusions.? Bleach Plant Operator reassess is diagnosis and sees that patient has psychotic symptoms even when not? manic and will change diagnosis to schizoaffective.? Patient says it is okay for senior mortgage underwriter to adjust medications and that he will take whatever senior mortgage underwriter thinks past 11/01 remains with severe paranoid delusions 11/02 patient sleeping and hypomanic; remains with intense paranoid delusions including feeling that there are peers on the unit conspiring to intimidate him; patient does agree that he seems to run into trouble when he stops taking his medications, however no insight into psychiatric illness 11/03 paranoid delusions and manic behaviors persist; patient is paranoid making accusations against multiple peers thinking there conspiring against him.? Patient has no insight.? Labs returned today showing subtherapeutic lithium dose so will increase.? Patient put in another 3 day.? However he remains paranoid and accusatory to other peers, provoking them and at this time is unsafe to return to the community 11/04 remains with paranoid delusions;?Discussed case with nursing; met with patient; reviewed vitals and tachycardic 11/05 no change; continues to have paranoid and delusional thoughts; unwanted approaches to other peers on the unit who are afraid of him due to his behaviors.? Continues to insist that multiple people on the unit and in the community have plans to harm him and that he is afraid.? At this time senior mortgage underwriter is concerned for his safety.? [place] dose recently increased and needs time to become therapeutic.? Will continue to assess. 11/06 patient remains with severe paranoid and grandiose delusions; he thinks that peers are conspiring against him and says he is afraid for his safety; remains without any insight.? Says he does not want to take Geodon or lithium.? Patient is accusatory and sometimes aggressively posturing towards staff and peers.? Patient is at risk for inciting pre-emptive or retaliatory aggression from others he is accusing and challenging.? Bleach Plant Operator and team agreed that patient is not safe for discharge to the community.? Discussed with team who agree that while sometimes patients chauncey can be addressed with medication, medications have yet to significantly erode paranoid delusions; however patient is not open to medication changes at this time. 11/07 severe, paranoid persecutory delusions, just during provoking to others whom he delusionally believes are conspiring against him.? Refused medications last night, though took them today. 11/08 remains with paranoid delusions, but did sleep last night. Agrees to trial of Zyprexa (will go with this med since some partial response in past and may have gotten dystonia from typical antipsychotic in ED) 11/13 remains with paranoid delusions, grandiose, or provocative towards peers whom he believes are conspiring against him. 11/14 remains with paranoid delusions, thinks people on the unit are trying to kill him. 11/15 no reduction in symptoms; will increase total daily Zyprexa dose to 40 mg.? Literature shows that typically if an antipsychotic is going to work oysterman for a person, it affords some reduction in symptoms early on even within a day or two; if patient's psychotic symptoms do not improve soon, will conclude that Zyprexa is not effective.? Clozapine remains the preferred medication however patient currently refuses.? Some concern for dystonic reaction from Haldol received in the emergency room;? will consider alternative 1st generation antipsychotics as well. -patient's mother is worried about vitamin-D and vitamin B deficiency; while these are rare and even less likely to have a clinical significance, will order lab work as patient agrees. 11/16 pt opening up about hx of trauma; unable to make connection with current paranoid delusion. Pt says he hates medications and thinks they are hurting him. Nursing concerned that patient is trying to check medication; will switch to Zydis 11/17 little less provocative towards peers but remains with florid paranoid and grandiose delusions. Last night patient initially refused his medications, but then later decided to take them. Today patient said he is trying to decide whether or not he should stop taking all the medications and challenge this senior mortgage underwriter in court or just continue taking medications, be in compliance and discharge.? He says he does not think the meds are working; does not think he needs them... 11/18: Continue current tx plan. Bleach Plant Operator has concerns that patient is not taking medication as prescribed.? He consistently says things like he does not like them, thinks they are bad for him, does not want them.? Nursing concerned that patient trying to cheek his medication, prompting senior mortgage underwriter to change Zyprexa to oral disintegrating tablet Zydis, which is much more quickly bioavailable.? Also his lithium level on 11/17 is subtherapeutic at 0.31 And it is lower than it was when patient was taking a lower dose of lithium measured on 11/03 (0.46)implying that patient has been avoiding taking this medication consistently. Pt taking total daily [place] dose of 900mg. [place] level 0.46 on 11/03/22 Pt taking total daily [place] dose of 1200mg. [place] level 0.31 on 11/17/22 At this point senior mortgage underwriter still does not know if these medications can be effective as it seems likely patient is not adhering with regimen; this also makes it hard to know if they should be titrated (given risk of lithium toxicity). And Even while he's getting some amount of medication in him, he remains with florid paranoid, persecutory and grandiose delusions and mistakenly thinks others are conspiring and threatening to harm him. Patient has little to no insight into his psychiatric illness.? Bleach Plant Operator has no reason to believe that patient will continue taking medications on discharge; almost daily, he expresses his belief that the medications are bad for him and he does not need them...and, it's questionable that he's fully taking them even now, despite having / supervision and redirection from trained staff.? If patient to discharge at this time, he would remain unsafe in the community. 11/21 patient less agitated and provocative on the unit, more calm. He does not bring up paranoid delusional thinking unless it is solicited. That said, patient remains with paranoid and grandiose delusions. And senior mortgage underwriter thinks it is unlikely that patient will continue medications once discharged. Concern is that current medication regimen seems able to calm down the chauncey, and perhaps taken edge off some of the moment to moment paranoid thinking, however they do not seem to resolve the paranoid/grandiose delusions. 2/1 less manic; less intrusive to others; still delusional but not expressing as much 2/2 dc morning Zydis since pt may remain at current stability at total daily dose of 30mg and once a day dosing will help encourage continued adherence post discharge; will also dc vitamins as pt is eating well and again, to lessen pill-taking burden in effort to enhance adherence 2/3 expresses improved insight, sharing his consideration that beliefs may have been dreams and current ambivalence regarding if beliefs are delusional vs true. That said, in the past, pt once admitted to senior mortgage underwriter that he fooled senior mortgage underwriter by pretending to no longer believe his delusional thoughts, saying they delusions....only since he knew that was what senior mortgage underwriter wanted to hear. It's possible that pt is ambivalent and also that if he remains on meds, insight will improve -currently pt is no longer perceiving threats from peers and he's no longer intrusive; not talking about delusional thoughts to others; he's sleeping and eating well; taking his meds; if he remains at current level of stability will consider dc home as mother feels ok about his discharge. He refuses to try clozapine which would be main reason to keep him longer. 11/26/22: no changes 2/ patient decompensated, and is again expressing feeling threatened on the unit by peers and going on about paranoid, grandiose delusions; possibly due to Zyprexa being lowered to 30 mg, down from 40 mg; patient however also revealed that last week he was just telling senior mortgage underwriter what senior mortgage underwriter wanted to hear. Regardless, patient has regressed back to being unable to contain paranoid delusions. Patient at 1st refused any medication changes demanding discharge or court. Later patient changed his mind and said he is willing to stay longer intake clozapine. Despite taking medications which her delivered to him by staff, patient's symptoms have worsened and Patient is again mistakenly accusing others of making violent threats towards him; he is again confrontational. Currently patient requires staff supervision 14/05 to help with redirection and to avert conflict with peers. Patient is also checked every 15 minutes. At this time there is no less restrictive setting for patient. He has no insight at all and has almost daily said he does not want medication or treatment and does not think he needs it. The only time he says he will take it is and a written statement saying that he will be adherent with his medication as it pertains to him being allowed to discharge. Bleach Plant Operator has no reason to believe patient will continue taking medications in the community. Furthermore in the community patient is without trained staff present 24 hours a day to help patient avoid conflict with others. Patient is accusatory and willing to confront people he delusionally perceives is threatening and risks being harmed in the community. 11/28 starting clozapine 25 mg; will titrate; will cross taper Zyprexa as clinically indicated 11/29 continue tx 11/30 continue titration of clozapine; patient denies any new experiences of threats from peers Plan: Petition court for involuntary commitment and medication; currently continuance Q 15 minute checks Continue clozapine 25 mg in AM INCreased to Clozapine 75mg qhs; (will titrate, increase by 25mg daily as tolerated) ANC weekly ANC checked and within normal limits; patient registered in clozapine rems program add melatonin (at pt's request) GILSON Serna; pt does not like (did help sleep however) Discontinue trazodone; patient says seems to have activated him [place] level: 0.31 (subtherapeutic despite being therapeutic at 0.6 6 at same dose). DC ZYDIS 10 mg daily Continue ZYIDIS 30mg qhs . Continue lithium ER 1200mg qhs (this does was subtherapeutic but said nauseus at higher dose); BUN creatinine, TSH, lytes within normal limits Changed to Cogentin 0.5 mg PRN (not sure if dystonic reaction was from Haldol received in the ED or from Geodon or just combination, but has not returned) dc omeprazole; pt says only had couple days of gerd and does not think needs it In the past, these meds partially stabilized manic behaviors but did not resolve delusions: -Depakote ER 250 mg in the morning and 1000 mg q.h.s. -Risperdal 4 mg -Geodon: not effective Med trial Zyprexa: ?partially helpful as prn. Patient educated on: diagnosis and medication risk/benefits Informed Consent: understands, does not understand and further education needed Reason for contiued inpatient stay Substantial Risk for: rapid decompensation Time Spent With Patient Time: Total time managing care of this patient today ____ minutes.
[2022-12-01] MEDS: Melatonin 3 MG TABLET PO (19:09)
[2022-12-01] MEDS: cloZAPine 25 MG TABLET 75 MG PO (19:09)
[2022-12-01] MEDS: clonazePAM 0.5 MG TABLET PO (19:10)
[2022-12-01] MEDS: OLANZapine ODT 10 MG TAB.RAPDIS 30 MG TRANSLINGU (19:10)
[2022-12-01] MEDS: Lithium Carbonate 300 MG CAPSULE 1200 MG PO (19:10)
[2022-12-01 19:12] VITALS: BP 128/78; PULSE 106; RESP 14; TEMP 36.8
[2022-12-02] MEDS: cloZAPine 25 MG TABLET PO (08:27)
[2022-12-02 09:30] VITALS: BP 124/71; PULSE 106; RESP 18; TEMP 36.3; O2SAT 98
[2022-12-02 18:00] VITALS: BP 137/80; PULSE 115; RESP 16; TEMP 36.2; O2SAT 98
--- NOTE | 2022-12-02 18:30 | P.PNPSI_ITS ---
Subjective Subjective Date of Service: 12/02/22 Reason For Visit: chauncey Interim History: Met with patient; discussed in teams Patient said that he had a talk with his father today which was nice. He says he has not talked him in quite a while. Otherwise patient reports he is doing well no side effects. Asks again about discharge wanted to confirm when it will be. Says sleeping well; denies any perceived threats on the unit Mental Status Exam Mental Status Exam Narrative: Pt is alert and oriented; behavior is cooperative and more calm; anxious but less so; overly formal calling typewriter assembler sir; dressed in casual attire with long, unkempt hair, glasses,; with adequate hygiene; mood is described good and affect is sometimes anxious and constricted but can be calm too; eye contact appropriate; Speech is normal rate, volume; normal prosody; not pressured; some mild to moderate psychomotor agitation present; thought process is goal directed; Thought content is with paranoid delusions and grandiose thoughts but not expressing unless asked; able to be pertinent to relevant topics discussed; denies any SI/HI. Denies AVH; though some internal preoccupations. Patients insight and judgment are impaired Diagnostics Vital Signs (24Hr): Vital Signs - 24 hr 12/01/22 19:12 12/02/22 09:30 12/02/22 18:00 Temperature 98.2 F 97.3 F 97.1 F Pulse Rate 106 H 106 H 115 H Respiratory Rate 14 18 16 Blood Pressure 128/78 124/71 137/80 Pulse Oximetry 98 98 Oxygen Delivery Method Room Air Room Air BMI result Body Mass Index 24.0 Labs 11/28/22 10:59 11/08/22 08:34 Medications Medications Current Medications Acetaminophen (Acetaminophen 325 Mg Tablet) 650 mg PO Q6H PRN PRN Reason: Headache/Pain Mild Scale (1-3) Last Admin: 11/26/22 19:51 Dose: 650 mg Al Hydroxide/Mg Hydroxide (Magnesium Hydrox/Alum Hydrox 30 Ml Oral.Susp) 30 ml PO Q6H PRN PRN Reason: Heartburn/Nausea Last Admin: 11/11/22 17:24 Dose: 30 ml Benztropine Mesylate (Benztropine Mesylate 0.5 Mg Tablet) 0.5 mg PO TID PRN PRN Reason: Extrapyramidal Effects Chlorpromazine HCl (Chlorpromazine Hcl 25 Mg Tablet) 50 mg PO Q4H PRN PRN Reason: anxiety/agitation Last Admin: 12/01/22 09:43 Dose: 50 mg Clonazepam (Clonazepam 0.5 Mg Tablet) 0.5 mg PO BEDTIME PRN PRN Reason: insomnia Last Admin: 12/01/22 19:10 Dose: 0.5 mg Clozapine (Clozapine 25 Mg Tablet) 25 mg PO DAILY VIC Last Admin: 12/02/22 08:27 Dose: 25 mg Clozapine (Clozapine 100 Mg Tablet) 100 mg PO BEDTIME VIC [place] Carbonate ([place] Carbonate 300 Mg Capsule) 1,200 mg PO BEDTIME VIC Last Admin: 12/01/22 19:10 Dose: 1,200 mg Magnesium Hydroxide (Milk Of Magnesia 30 Ml Oral.Susp) 30 ml PO DAILY PRN PRN Reason: Constipation Melatonin (Melatonin 3 Mg Tablet) 3 mg PO BEDTIME VIC Last Admin: 12/01/22 19:09 Dose: 3 mg Melatonin (Melatonin 3 Mg Tablet) 3 mg PO BEDTIME PRN PRN Reason: continued insomnia Nicotine Polacrilex (Nicotine Polacrilex 2 Mg Gum) 4 mg BUCCAL Q2H PRN PRN Reason: Nicotine Cravings Last Admin: 11/24/22 17:22 Dose: 4 mg Olanzapine (Olanzapine Odt 10 Mg Tab.Rapdis) 30 mg TRANSLINGU BEDTIME VIC Last Admin: 12/01/22 19:10 Dose: 30 mg Allergies Allergies Allergy/AdvReac Type Severity Reaction Status Date / Time No Known Allergies Allergy Verified 02/22/22 16:29 Assessment & Plan Assessment & Plan (1) Schizoaffective disorder, bipolar type: Status: Acute Code(s): F25.0 - Schizoaffective disorder, bipolar type (2) Chronic post-traumatic stress disorder (PTSD): Status: Acute Code(s): F43.12 - Post-traumatic stress disorder, chronic (3) Alcohol abuse: Status: Acute Code(s): F10.10 - Alcohol abuse, uncomplicated Plan Patient is a 22-year-old male with history of bipolar disorder type 1, alcohol abuse/dependence, PTSD discharged from 05/04/2022 and here for his 3rd inp atient admission in less than 1 year,, who Self presents for paranoid ideations that he is being followed by people who want to harm him in the face of having gone off his medication this past summer and relapsing with alcohol.? In the ED patient disrobing, disorganized; received Haldol for p.r.n. received Haldol as a p.r.n. -patient has history of severe manic episodes with significant psychotic features and extensive delusional beliefs that render him unable to function.? Patient also has PTSD and seems to frequently looked alcohol as a coping strategy.? On medication symptoms significantly decrease but it has never been clear whether patient has insight 10/30 patient remains with odd behavior; he is guarded and does not reveal much; remains internally preoccupied 10/31 patient psychotic with paranoid delusions.? Sewing Machine Maintenance Mechanic reassess is diagnosis and sees that patient has psychotic symptoms even when not? manic and will change diagnosis to schizoaffective.? Patient says it is okay for typewriter assembler to adjust medications and that he will take whatever typewriter assembler thinks past 11/01 remains with severe paranoid delusions 11/02 patient sleeping and hypomanic; remains with intense paranoid delusions including feeling that there are peers on the unit conspiring to intimidate him; patient does agree that he seems to run into trouble when he stops taking his medications, however no insight into psychiatric illness 11/03 paranoid delusions and manic behaviors persist; patient is paranoid making accusations against multiple peers thinking there conspiring against him.? Patient has no insight.? Labs returned today showing subtherapeutic lithium dose so will increase.? Patient put in another 3 day.? However he remains paranoid and accusatory to other peers, provoking them and at this time is unsafe to return to the community 11/04 remains with paranoid delusions;?Discussed case with nursing; met with patient; reviewed vitals and tachycardic 11/05 no change; continues to have paranoid and delusional thoughts; unwanted approaches to other peers on the unit who are afraid of him due to his behaviors.? Continues to insist that multiple people on the unit and in the community have plans to harm him and that he is afraid.? At this time typewriter assembler is concerned for his safety.? [place] dose recently increased and needs time to become therapeutic.? Will continue to assess. 11/06 patient remains with severe paranoid and grandiose delusions; he thinks that peers are conspiring against him and says he is afraid for his safety; remains without any insight.? Says he does not want to take Geodon or lithium.? Patient is accusatory and sometimes aggressively posturing towards staff and peers.? Patient is at risk for inciting pre-emptive or retaliatory aggression from others he is accusing and challenging.? Sewing Machine Maintenance Mechanic and team agreed that patient is not safe for discharge to the community.? Discussed with team who agree that while sometimes patients chauncey can be addressed with medication, medications have yet to significantly erode paranoid delusions; however patient is not open to medication changes at this time. 11/07 severe, paranoid persecutory delusions, just during provoking to others whom he delusionally believes are conspiring against him.? Refused medications last night, though took them today. 11/08 remains with paranoid delusions, but did sleep last night. Agrees to trial of Zyprexa (will go with this med since some partial response in past and may have gotten dystonia from typical antipsychotic in ED) 11/13 remains with paranoid delusions, grandiose, or provocative towards peers whom he believes are conspiring against him. 11/14 remains with paranoid delusions, thinks people on the unit are trying to kill him. 11/15 no reduction in symptoms; will increase total daily Zyprexa dose to 40 mg.? Literature shows that typically if an antipsychotic is going to work usp for a person, it affords some reduction in symptoms early on even within a day or two; if patient's psychotic symptoms do not improve soon, will conclude that Zyprexa is not effective.? Clozapine remains the preferred medication however patient currently refuses.? Some concern for dystonic reaction from Haldol r eceived in the emergency room;? will consider alternative 1st generation antipsychotics as well. -patient's mother is worried about vitamin-D and vitamin B deficiency; while these are rare and even less likely to have a clinical significance, will order lab work as patient agrees. 11/16 pt opening up about hx of trauma; unable to make connection with current paranoid delusion. Pt says he hates medications and thinks they are hurting him. Nursing concerned that patient is trying to check medication; will switch to Zydis 11/17 little less provocative towards peers but remains with florid paranoid and grandiose delusions. Last night patient initially refused his medications, but then later decided to take them. Today patient said he is trying to decide whether or not he should stop taking all the medications and challenge this typewriter assembler in court or just continue taking medications, be in compliance and discharge.? He says he does not think the meds are working; does not think he needs them... 11/18: Continue current tx plan. Sewing Machine Maintenance Mechanic has concerns that patient is not taking medication as prescribed.? He consistently says things like he does not like them, thinks they are bad for him, does not want them.? Nursing concerned that patient trying to cheek his medication, prompting typewriter assembler to change Zyprexa to oral disintegrating tablet Zydis, which is much more quickly bioavailable.? Also his lithium level on 11/17 is subtherapeutic at 0.31 And it is lower than it was when patient was taking a lower dose of lithium measured on 11/03 (0.46)implying that patient has been avoiding taking this medication consistently. Pt taking total daily [place] dose of 900mg. [place] level 0.46 on 11/03/22 Pt taking total daily [place] dose of 1200mg. [place] level 0.31 on 11/17/22 At this point typewriter assembler still does not know if these medications can be effective as it seems likely patient is not adhering with regimen; this also makes it hard to know if they should be titrated (given risk of lithium toxicity). And Even while he's getting some amount of medication in him, he remains with florid paranoid, persecutory and grandiose delusions and mistakenly thinks others are conspiring and threatening to harm him. Patient has little to no insight into his psychiatric illness.? Sewing Machine Maintenance Mechanic has no reason to believe that patient will continue taking medications on discharge; almost daily, he expresses his belief that the medications are bad for him and he does not need them...and, it's questionable that he's fully taking them even now, despite having 24/ supervision and redirection from trained staff.? If patient to discharge at this time, he would remain unsafe in the community. 11/21 patient less agitated and provocative on the unit, more calm. He does not bring up paranoid delusional thinking unless it is solicited. That said, patient remains with paranoid and grandiose delusions. And typewriter assembler thinks it is unlikely that patient will continue medications once discharged. Concern is that current medication regimen seems able to calm down the chauncey, and perhaps taken edge off some of the moment to moment paranoid thinking, however they do not seem to resolve the paranoid/grandiose delusions. 2/1 less manic; less intrusive to others; still delusional but not expressing as much 2/2 dc morning Zydis since pt may remain at current stability at total daily dose of 30mg and once a day dosing will help encourage continued adherence post discharge; will also dc vitamins as pt is eating well and again, to lessen pill- taking burden in effort to enhance adherence 2/3 expresses improved insight, sharing his consideration that beliefs may have been dreams and current ambivalence regarding if beliefs are delusional vs true. That said, in the past, pt once admitted to typewriter assembler that he fooled typewriter assembler by pretending to no longer believe his delusional thoughts, saying they delusions....only since he knew that was what typewriter assembler wanted to hear. It's possible that pt is ambivalent and also that if he remains on meds, insight will improve -currently pt is no longer perceiving threats from peers and he's no longer intrusive; not talking about delusional thoughts to others; he's sleeping and eating well; taking his meds; if he remains at current level of stability will consider dc home as mother feels ok about his discharge. He refuses to try clozapine which would be main reason to keep him longer. 11/26/22: no changes 2/6 patient decompensated, and is again expressing feeling threatened on the unit by peers and going on about paranoid, grandiose delusions; possibly due to Zyprexa being lowered to 30 mg, down from 40 mg; patient however also revealed that last week he was just telling typewriter assembler what typewriter assembler wanted to hear. Regardless, patient has regressed back to being unable to contain paranoid delusions. Patient at 1st refused any medication changes demanding discharge or court. Later patient changed his mind and said he is willing to stay longer intake clozapine. Despite taking medications which her delivered to him by staff, patient's symptoms have worsened and Patient is again mistakenly accusing others of making violent threats towards him; he is again confrontational. Cu rrently patient requires staff supervision 14/05 to help with redirection and to avert conflict with peers. Patient is also checked every 15 minutes. At this time there is no less restrictive setting for patient. He has no insight at all and has almost daily said he does not want medication or treatment and does not think he needs it. The only time he says he will take it is and a written state ment saying that he will be adherent with his medication as it pertains to him being allowed to discharge. Sewing Machine Maintenance Mechanic has no reason to believe patient will continue taking medications in the community. Furthermore in the community patient is without trained staff present 24 hours a day to help patient avoid conflict with others. Patient is accusatory and willing to confront people he delusionally perceives is threatening and risks being harmed in the community. 11/28 starting clozapine 25 mg; will titrate; will cross taper Zyprexa as clinically indicated 11/29 continue tx 11/30 continue titration of clozapine; patient denies any new experiences of threats from peers 12/02 patient continues with clozapine; overall more calm on the unit. Plan: Petition court for involuntary commitment and medication; currently continuance Q 15 minute checks Continue clozapine 25 mg in AM INCreased to Clozapine 100mg qhs; (will titrate, increase by 25mg daily as tolerated) ANC weekly ANC checked and within normal limits; patient registered in clozapine rems program add melatonin (at pt's request) GILSON Serna; pt does not like (did help sleep however) Discontinue trazodone; patient says seems to have activated him [place] level: 0.31 (subtherapeutic despite being therapeutic at 0.6 6 at same dose). DC ZYDIS 10 mg daily Continue ZYIDIS 30mg qhs . Continue lithium ER 1200mg qhs (this does was subtherapeutic but said nauseus at higher dose); BUN creatinine, TSH, lytes within normal limits Changed to Cogentin 0.5 mg PRN (not sure if dystonic reaction was from Haldol received in the ED or from Geodon or just combination, but has not returned) dc omeprazole; pt says only had couple days of gerd and does not think needs it In the past, these meds partially stabilized manic behaviors but did not resolve delusions: -Depakote ER 250 mg in the morning and 1000 mg q.h.s. -Risperdal 4 mg -Geodon: not effective Med trial Zyprexa: ?partially helpful as prn. Reason for contiued inpatient stay Substantial Risk for: rapid decompensation Time Spent With Patient Time: Total time managing care of this patient today ____ minutes.
[2022-12-02] MEDS: OLANZapine ODT 10 MG TAB.RAPDIS 30 MG TRANSLINGU (19:45)
[2022-12-02] MEDS: Lithium Carbonate 300 MG CAPSULE 1200 MG PO (19:45)
[2022-12-02] MEDS: cloZAPine 100 MG TABLET PO (19:45)
[2022-12-02] MEDS: Melatonin 3 MG TABLET PO (19:46)
[2022-12-03] MEDS: cloZAPine 25 MG TABLET PO (09:03)
[2022-12-03 09:06] VITALS: BP 117/79; PULSE 112; RESP 18; TEMP 36.5; O2SAT 99
[2022-12-03] MEDS: Magnesium Hydrox/Alum Hydrox 30 ML ORAL.SUSP PO (12:23)
--- NOTE | 2022-12-03 13:33 | P.PNPSI_ITS ---
Subjective Subjective Date of Service: 12/03/22 Reason For Visit: chauncey Interim History: With patient; discussed in teams Patient reports he felt a little lightheaded this morning which lasted about an hour. Also said it was a little harder to sleep up few times overnight. Overall says he is doing well. Staff reports still writing [place] [employer] letters. Mental Status Exam Mental Status Exam Narrative: Pt is alert and oriented; behavior is cooperative and more calm; anxious but less so; overly formal calling screenplay writer sir; dressed in casual attire with long, unkempt hair, glasses,; with adequate hygiene; mood is described good and affect is sometimes anxious and constricted but can be calm too; eye contact appropriate; Speech is normal rate, volume; normal prosody; not pressured; some mild to moderate psychomotor agitation present; thought process is goal directed; Thought content is with paranoid delusions and grandiose thoughts but not expressing unless asked; able to be pertinent to relevant topics discussed; denies any SI/HI. Denies AVH; though some internal preoccupations. Patients insight and judgment are impaired Diagnostics Vital Signs (24Hr): Vital Signs - 24 hr 12/02/22 18:00 12/03/22 09:06 Temperature 97.1 F 97.7 F Pulse Rate 115 H 112 H Respiratory Rate 16 18 Blood Pressure 137/80 117/79 Pulse Oximetry 98 99 Oxygen Delivery Method Room Air Room Air BMI result Body Mass Index 24.0 Labs 11/28/22 10:59 11/08/22 08:34 Medications Medications Current Medications Acetaminophen (Acetaminophen 325 Mg Tablet) 650 mg PO Q6H PRN PRN Reason: Headache/Pain Mild Scale (1-3) Last Admin: 11/26/22 19:51 Dose: 650 mg Al Hydroxide/Mg Hydroxide (Magnesium Hydrox/Alum Hydrox 30 Ml Oral.Susp) 30 ml PO Q6H PRN PRN Reason: Heartburn/Nausea Last Admin: 12/03/22 12:23 Dose: 30 ml Benztropine Mesylate (Benztropine Mesylate 0.5 Mg Tablet) 0.5 mg PO TID PRN PRN Reason: Extrapyramidal Effects Chlorpromazine HCl (Chlorpromazine Hcl 25 Mg Tablet) 50 mg PO Q4H PRN PRN Reason: anxiety/agitation Last Admin: 12/01/22 09:43 Dose: 50 mg Clonazepam (Clonazepam 0.5 Mg Tablet) 0.5 mg PO BEDTIME PRN PRN Reason: insomnia Last Admin: 12/01/22 19:10 Dose: 0.5 mg Clozapine (Clozapine 25 Mg Tablet) 25 mg PO DAILY VIC Last Admin: 12/03/22 09:03 Dose: 25 mg Clozapine (Clozapine 100 Mg Tablet) 100 mg PO BEDTIME VIC Last Admin: 12/02/22 19:45 Dose: 100 mg [place] Carbonate ([place] Carbonate 300 Mg Capsule) 1,200 mg PO BEDTIME VIC Last Admin: 12/02/22 19:45 Dose: 1,200 mg Magnesium Hydroxide (Milk Of Magnesia 30 Ml Oral.Susp) 30 ml PO DAILY PRN PRN Reason: Constipation Melatonin (Melatonin 3 Mg Tablet) 3 mg PO BEDTIME VIC Last Admin: 12/02/22 19:46 Dose: 3 mg Melatonin (Melatonin 3 Mg Tablet) 3 mg PO BEDTIME PRN PRN Reason: continued insomnia Nicotine Polacrilex (Nicotine Polacrilex 2 Mg Gum) 4 mg BUCCAL Q2H PRN PRN Reason: Nicotine Cravings Last Admin: 11/24/22 17:22 Dose: 4 mg Olanzapine (Olanzapine Odt 10 Mg Tab.Rapdis) 30 mg TRANSLINGU BEDTIME VIC Last Admin: 12/02/22 19:45 Dose: 30 mg Allergies Allergies Allergy/AdvReac Type Severity Reaction Status Date / Time No Known Allergies Allergy Verified 02/22/22 16:29 Assessment & Plan Assessment & Plan (1) Schizoaffective disorder, bipolar type: Status: Acute Code(s): F25.0 - Schizoaffective disorder, bipolar type (2) Chronic post-traumatic stress disorder (PTSD): Status: Acute Code(s): F43.12 - Post-traumatic stress disorder, chronic (3) Alcohol abuse: Status: Acute Code(s): F10.10 - Alcohol abuse, uncomplicated Plan Patient is a 22-year-old male with history of bipolar disorder type 1, alcohol abuse/dependence, PTSD discharged from 05/04/2022 and here for his 3rd inpatient admission in less than 1 year,, who Self presents for paranoid i deations that he is being followed by people who want to harm him in the face of having gone off his medication this past summer and relapsing with alcohol.? In the ED patient disrobing, disorganized; received Haldol for p.r.n. received Haldol as a p.r.n. -patient has history of severe manic episodes with significant psychotic features and extensive delusional beliefs that render him unable to function.? Patient also has PTSD and seems to frequently looked alcohol as a coping strategy.? On medication symptoms significantly decrease but it has never been clear whether patient has insight 10/30 patient remains with odd behavior; he is guarded and does not reveal much; remains internally preoccupied 10/31 patient psychotic with paranoid delusions.? Acute Care Nurse Practitioner reassess is diagnosis and sees that patient has psychotic symptoms even when not? manic and will change diagnosis to schizoaffective.? Patient says it is okay for screenplay writer to adjust medications and that he will take whatever screenplay writer thinks past 11/01 remains with severe paranoid delusions 11/02 patient sleeping and hypomanic; remains with intense paranoid delusions including feeling that there are peers on the unit conspiring to intimidate him; patient does agree that he seems to run into trouble when he stops taking his medications, however no insight into psychiatric illness 11/03 paranoid delusions and manic behaviors persist; patient is paranoid making accusations against multiple peers thinking there conspiring against him.? Patie nt has no insight.? Labs returned today showing subtherapeutic lithium dose so will increase.? Patient put in another 3 day.? However he remains paranoid and accusatory to other peers, provoking them and at this time is unsafe to return to the community 11/04 remains with paranoid delusions;?Discussed case with nursing; met with patient; reviewed vitals and tachycardic 11/05 no change; continues to have paranoid and delusional thoughts; unwanted approaches to other peers on the unit who are afraid of him due to his behaviors.? Continues to insist that multiple people on the unit and in the community have plans to harm him and that he is afraid.? At this time screenplay writer is concerned for his safety.? [place] dose recently increased and needs time to become therapeutic.? Will continue to assess. 11/06 patient remains with severe paranoid and grandiose delusions; he thinks that peers are conspiring against him and says he is afraid for his safety; remains without any insight.? Says he does not want to take Geodon or lithium.? Patient is accusatory and sometimes aggressively posturing towards staff and peers.? Patient is at risk for inciting pre-emptive or retaliatory aggression from others he is accusing and challenging.? Acute Care Nurse Practitioner and team agreed that patient is not safe for discharge to the community.? Discussed with team who agree that while sometimes patients chauncey can be addressed with medication, medications have yet to significantly erode paranoid delusions; however patient is not open to medication changes at this time. 11/07 severe, paranoid persecutory delusions, just during provoking to others whom he delusionally believes are conspiring against him.? Refused medications last night, though took them today. 11/08 remains with paranoid delusions, but did sleep last night. Agrees to trial of Zyprexa (will go with this med since some partial response in past and may have gotten dystonia from typical antipsychotic in ED) 11/13 remains with paranoid delusions, grandiose, or provocative towards peers whom he believes are conspiring against him. 11/14 remains with paranoid delusions, thinks people on the unit are trying to kill him. 11/15 no reduction in symptoms; will increase total daily Zyprexa dose to 40 mg.? Literature shows that typically if an antipsychotic is going to work jail for a person, it affords some reduction in symptoms early on even within a day or two; if patient's psychotic symptoms do not improve soon, will conclude that Zyprexa is not effective.? Clozapine remains the preferred medication however patient currently refuses.? Some concern for dystonic reaction from Haldol received in the emergency room;? will consider alternative 1st generation antipsychotics as well. -patient's mother is worried about vitamin-D and vitamin B deficiency; while these are rare and even less likely to have a clinical significance, will order lab work as patient agrees. 11/16 pt opening up about hx of trauma; unable to make connection with current paranoid delusion. Pt says he hates medications and thinks they are hurting him. Nursing concerned that patient is trying to check medication; will switch to Zydis 11/17 little less provocative towards peers but remains with florid paranoid and grandiose delusions. Last night patient initially refused his medications, but then later decided to take them. Today patient said he is trying to decide whether or not he should stop taking all the medications and challenge this screenplay writer in court or just continue taking medications, be in compliance and discharge.? He says he does not think the meds are working; does not think he needs them... 11/18: Continue current tx plan. Acute Care Nurse Practitioner has concerns that patient is not taking medication as prescribed.? He consistently says things like he does not like them, thinks they are bad for him, does not want them.? Nursing concerned that patient trying to cheek his medication, prompting screenplay writer to change Zyprexa to oral disintegrating tablet Zydis, which is much more quickly bioavailable.? Also his lithium level on 11/17 is subtherapeutic at 0.31 And it is lower than it was when patient was taking a lower dose of lithium measured on 11/03 (0.46)implying that patient has been avoiding taking this medication consistently. Pt taking total daily [place] dose of 900mg. [place] level 0.46 on 11/03/22 Pt taking total daily [place] dose of 1200mg. [place] level 0.31 on 11/17/22 At this point screenplay writer still does not know if these medications can be effective as it seems likely patient is not adhering with regimen; this also makes it hard to know if they should be titrated (given risk of lithium toxicity). And Even while he's getting some amount of medication in him, he remains with florid paranoid, persecutory and grandiose delusions and mistakenly thinks others are c onspiring and threatening to harm him. Patient has little to no insight into his psychiatric illness.? Acute Care Nurse Practitioner has no reason to believe that patient will continue taking medications on discharge; almost daily, he expresses his belief that the medications are bad for him and he does not need them...and, it's questionable that he's fully taking them even now, despite having / supervision and redir ection from trained staff.? If patient to discharge at this time, he would remain unsafe in the community. 11/21 patient less agitated and provocative on the unit, more calm. He does not bring up paranoid delusional thinking unless it is solicited. That said, patient remains with paranoid and grandiose delusions. And screenplay writer thinks it is unlikely that patient will continue medications once discharged. Concern is that current medication regimen seems able to calm down the chauncey, and perhaps taken edge off some of the moment to moment paranoid thinking, however they do not seem to resolve the paranoid/grandiose delusions. 2/1 less manic; less intrusive to others; still delusional but not expressing as much 2/2 dc morning Zydis since pt may remain at current stability at total daily dose of 30mg and once a day dosing will help encourage continued adherence post discharge; will also dc vitamins as pt is eating well and again, to lessen pill- taking burden in effort to enhance adherence 2/3 expresses improved insight, sharing his consideration that beliefs may have been dreams and current ambivalence regarding if beliefs are delusional vs true. That said, in the past, pt once admitted to screenplay writer that he fooled screenplay writer by pretending to no longer believe his delusional thoughts, saying they delusions....only since he knew that was what screenplay writer wanted to hear. It's possible that pt is ambivalent and also that if he remains on meds, insight will improve -currently pt is no longer perceiving threats from peers and he's no longer intrusive; not talking about delusional thoughts to others; he's sleeping and eating well; taking his meds; if he remains at current level of stability will consider dc home as mother feels ok about his discharge. He refuses to try clozapine which would be main reason to keep him longer. 11/26/22: no changes 2/ patient decompensated, and is again expressing feeling threatened on the unit by peers and going on about paranoid, grandiose delusions; possibly due to Zyprexa being lowered to 30 mg, down from 40 mg; patient however also revealed that last week he was just telling screenplay writer what screenplay writer wanted to hear. Regardless, patient has regressed back to being unable to contain paranoid delusions. Patient at 1st refused any medication changes demanding discharge or court. Later patient changed his mind and said he is willing to stay longer intake clozapine. Despite taking medications which her delivered to him by staff, patient's symptoms have worsened and Patient is again mistakenly accusing others of making violent threats towards him; he is again confrontational. Currently patient requires staff supervision 14/05 to help with redirection and to avert conflict with peers. Patient is also checked every 15 minutes. At this time there is no less restrictive setting for patient. He has no insight at all and has almost daily said he does not want medication or treatment and does not think he needs it. The only time he says he will take it is and a written statement saying that he will be adherent with his medication as it pertains to him being allowed to discharge. Acute Care Nurse Practitioner has no reason to believe patient will continue taking medications in the community. Furthermore in the community patient is without trained staff present 24 hours a day to help patient avoid conflict with others. Patient is accusatory and willing to conf ront people he delusionally perceives is threatening and risks being harmed in the community. 11/28 starting clozapine 25 mg; will titrate; will cross taper Zyprexa as clinically indicated 11/29 continue tx 11/30 continue titration of clozapine; patient denies any new experiences of threats from peers 12/02 patient continues with clozapine; overall more calm on the unit. 12/03 will leave Clozapine bedtime dose at 100mg given lightheadedness this am Plan: Petition court for involuntary commitment and medication; currently continuance Q 15 minute checks Continue clozapine 25 mg in AM Continue Clozapine 100mg qhs; (will titrate, increase by 25mg daily as tolerated) ANC weekly ANC checked and within normal limits; patient registered in clozapine rems program add melatonin (at pt's request) GILSON Serna; pt does not like (did help sleep however) Discontinue trazodone; patient says seems to have activated him [place] level: 0.31 (subtherapeutic despite being therapeutic at 0.6 6 at same dose). DC ZYDIS 10 mg daily Continue ZYIDIS 30mg qhs . Continue lithium ER 1200mg qhs (this does was subtherapeutic but said nauseus at higher dose); BUN creatinine, TSH, lytes within normal limits Changed to Cogentin 0.5 mg PRN (not sure if dystonic reaction was from Haldol received in the ED or from Geodon or just combination, but has not returned) dc omeprazole; pt says only had couple days of gerd and does not think needs it In the past, these meds partially stabilized manic behaviors but did not resolve delusions: -Depakote ER 250 mg in the morning and 1000 mg q.h.s. -Risperdal 4 mg -Geodon: not effective Med trial Zyprexa: ?partially helpful as prn. Patient educated on: diagnosis and medication risk/benefits Informed Consent: understands and further education needed Reason for contiued inpatient stay Substantial Risk for: med/psych decompensation Time Spent With Patient Time: Total time managing care of this patient today ____ minutes.
[2022-12-03 18:00] VITALS: BP 118/70; PULSE 110; RESP 18; TEMP 36.6; O2SAT 18
[2022-12-03] MEDS: clonazePAM 0.5 MG TABLET PO (20:38)
[2022-12-03] MEDS: Lithium Carbonate 300 MG CAPSULE 1200 MG PO (20:38)
[2022-12-03] MEDS: Melatonin 3 MG TABLET PO ×2 (20:38→20:39)
[2022-12-03] MEDS: cloZAPine 100 MG TABLET PO (20:38)
[2022-12-03] MEDS: OLANZapine ODT 10 MG TAB.RAPDIS 30 MG TRANSLINGU (20:39)
[2022-12-04 06:00] VITALS: BP 133/84; PULSE 110; RESP 18; TEMP 36.7
[2022-12-04] MEDS: cloZAPine 25 MG TABLET PO (08:21)
--- NOTE | 2022-12-04 16:43 | HO.PSYCHPN ---
Subjective Subjective Date of Service: 12/04/22 Reason For Visit: chauncey Interim History: Late entry note for patient seen on 12/04 Met with patient; discussed with team. Patient reported to staff that he has decided to no longer send letters to [facility]. Patient denies medication side effects says he is well. Says he thinks that the clozapine is helping though vague reasoning Mental Status Exam Mental Status Exam Narrative: Pt is alert and oriented; behavior is cooperative and more calm; anxious but less so; overly formal calling music writer sir; dressed in casual attire with long, unkempt hair, glasses,; with adequate hygiene; mood is described good and affect is sometimes anxious and constricted but can be calm too; eye contact appropriate; Speech is normal rate, volume; normal prosody; not pressured; some mild to moderate psychomotor agitation present; thought process is goal directed; Thought content is with paranoid delusions and grandiose thoughts but not expressing unless asked; able to be pertinent to relevant topics discussed; denies any SI/HI. Denies AVH; though some internal preoccupations. Patients insight and judgment are impaired Diagnostics Vital Signs (24Hr): Vital Signs - 24 hr 12/04/22 19:54 12/05/22 06:00 12/05/22 16:30 Temperature 98.7 F 98.3 F Pulse Rate 107 H 112 H 102 H Respiratory Rate 14 16 Blood Pressure 140/83 H 131/85 129/78 Oxygen Delivery Method Room Air BMI result Body Mass Index 24.0 Labs 11/28/22 10:59 11/08/22 08:34 Labs: Laboratory Results - last 48 hr 12/05/22 07:57 Absolute Neuts (auto) 3.6 Medications Medications Current Medications Acetaminophen (Acetaminophen 325 Mg Tablet) 650 mg PO Q6H PRN PRN Reason: Headache/Pain Mild Scale (1-3) Last Admin: 11/26/22 19:51 Dose: 650 mg Al Hydroxide/Mg Hydroxide (Magnesium Hydrox/Alum Hydrox 30 Ml Oral.Susp) 30 ml PO Q6H PRN PRN Reason: Heartburn/Nausea Last Admin: 12/03/22 12:23 Dose: 30 ml Benztropine Mesylate (Benztropine Mesylate 0.5 Mg Tablet) 0.5 mg PO TID PRN PRN Reason: Extrapyramidal Effects Chlorpromazine HCl (Chlorpromazine Hcl 25 Mg Tablet) 50 mg PO Q4H PRN PRN Reason: anxiety/agitation Last Admin: 12/01/22 09:43 Dose: 50 mg Clonazepam (Clonazepam 0.5 Mg Tablet) 0.5 mg PO BEDTIME PRN PRN Reason: insomnia Last Admin: 12/04/22 19:48 Dose: 0.5 mg Clozapine (Clozapine 25 Mg Tablet) 125 mg PO BEDTIME VIC [place] Carbonate ([place] Carbonate 300 Mg Capsule) 1,200 mg PO BEDTIME VIC Last Admin: 12/04/22 19:47 Dose: 1,200 mg Magnesium Hydroxide (Milk Of Magnesia 30 Ml Oral.Susp) 30 ml PO DAILY PRN PRN Reason: Constipation Melatonin (Melatonin 3 Mg Tablet) 3 mg PO BEDTIME VIC Last Admin: 12/04/22 19:48 Dose: 3 mg Melatonin (Melatonin 3 Mg Tablet) 3 mg PO BEDTIME PRN PRN Reason: continued insomnia Last Admin: 12/03/22 20:39 Dose: 3 mg Nicotine Polacrilex (Nicotine Polacrilex 2 Mg Gum) 4 mg BUCCAL Q2H PRN PRN Reason: Nicotine Cravings Last Admin: 11/24/22 17:22 Dose: 4 mg Olanzapine (Olanzapine Odt 10 Mg Tab.Rapdis) 30 mg TRANSLINGU BEDTIME VIC Last Admin: 12/04/22 19:48 Dose: 30 mg Allergies Allergies Allergy/AdvReac Type Severity Reaction Status Date / Time No Known Allergies Allergy Verified 02/22/22 16:29 Assessment & Plan Assessment & Plan (1) Schizoaffective disorder, bipolar type: Status: Acute Code(s): F25.0 - Schizoaffective disorder, bipolar type (2) Chronic post-traumatic stress disorder (PTSD): Status: Acute Code(s): F43.12 - Post-traumatic stress disorder, chronic (3) Alcohol abuse: Status: Acute Code(s): F10.10 - Alcohol abuse, uncomplicated Plan Patient is a 22-year-old male with history of bipolar disorder type 1, alcohol abuse/dependence, PTSD discharged from 05/04/2022 and here for his 3rd inpatient admission in less than 1 year,, who Self presents for paranoid ideations that he is being followed by people who want to harm him in the face of having gone off his medication this past summer and relapsing with alcohol.? In the ED patient disrobing, disorganized; received Haldol for p.r.n. received Haldol as a p.r.n. -patient has history of severe manic episodes with significant psychotic features and extensive delusional beliefs that render him unable to function.? Patient also has PTSD and seems to frequently looked alcohol as a coping strategy.? On medication symptoms significantly decrease but it has never been clear whether patient has insight 10/30 patient remains with odd behavior; he is guarded and does not reveal much; remains internally preoccupied 10/31 patient psychotic with paranoid delusions.? [employer] reassess is diagnosis and sees that patient has psychotic symptoms even when not? manic and will change diagnosis to schizoaffective.? Patient says it is okay for music writer to adjust medications and that he will take whatever music writer thinks past 11/01 remains with severe paranoid delusions 11/02 patient sleeping and hypomanic; remains with intense paranoid delusions including feeling that there are peers on the unit conspiring to intimidate him; patient does agree that he seems to run into trouble when he stops taking his medications, however no insight into psychiatric illness 11/03 paranoid delusions and manic behaviors persist; patient is paranoid making accusations against multiple peers thinking there conspiring against him.? Patient has no insight.? Labs returned today showing subtherapeutic lithium dose so will increase.? Patient put in another 3 day.? However he remains paranoid and accusatory to other peers, provoking them and at this time is unsafe to return to the community 11/04 remains with paranoid delusions;?Discussed case with nursing; met with patient; reviewed vitals and tachycardic 11/05 no change; continues to have paranoid and delusional thoughts; unwanted approaches to other peers on the unit who are afraid of him due to his behaviors.? Continues to insist that multiple people on the unit and in the community have plans to harm him and that he is afraid.? At this time music writer is concerned for his safety.? Rock[place] dose recently increased and needs time to become therapeutic.? Will continue to assess. 11/06 patient remains with severe paranoid and grandiose delusions; he thinks that peers are conspiring against him and says he is afraid for his safety; remains without any insight.? Says he does not want to take Geodon or lithium.? Patient is accusatory and sometimes aggressively posturing towards staff and peers.? Patient is at risk for inciting pre-emptive or retaliatory aggression from others he is accusing and challenging.? [employer] and team agreed that patient is not safe for discharge to the community.? Discussed with team who agree that while sometimes patients chauncey can be addressed with medication, medications have yet to significantly erode paranoid delusions; however patient is not open to medication changes at this time. 11/07 severe, paranoid persecutory delusions, just during provoking to others whom he delusionally believes are conspiring against him.? Refused medications last night, though took them today. 11/08 remains with paranoid delusions, but did sleep last night. Agrees to trial of Zyprexa (will go with this med since some partial response in past and may have gotten dystonia from typical antipsychotic in ED) 11/13 remains with paranoid delusions, grandiose, or provocative towards peers whom he believes are conspiring against him. 11/14 remains with paranoid delusions, thinks people on the unit are trying to kill him. 11/15 no reduction in symptoms; will increase total daily Zyprexa dose to 40 mg.? Literature shows that typically if an antipsychotic is going to work correction for a person, it affords some reduction in symptoms early on even within a day or two; if patient's psychotic symptoms do not improve soon, will conclude that Zyprexa is not effective.? Clozapine remains the preferred medication however patient currently refuses.? Some concern for dystonic reaction from Haldol received in the emergency room;? will consider alternative 1st generation antipsychotics as well. -patient's mother is worried about vitamin-D and vitamin B deficiency; while these are rare and even less likely to have a clinical significance, will order lab work as patient agrees. 11/16 pt opening up about hx of trauma; unable to make connection with current paranoid delusion. Pt says he hates medications and thinks they are hurting him. Nursing concerned that patient is trying to check medication; will switch to Zydis 11/17 little less provocative towards peers but remains with florid paranoid and grandiose delusions. Last night patient initially refused his medications, but then later decided to take them. Today patient said he is trying to decide whether or not he should stop taking all the medications and challenge this music writer in court or just continue taking medications, be in compliance and discharge.? He says he does not think the meds are working; does not think he needs them... 11/18: Continue current tx plan. [employer] has concerns that patient is not taking medication as prescribed.? He consistently says things like he does not like them, thinks they are bad for him, does not want them.? Nursing concerned that patient trying to cheek his medication, prompting music writer to change Zyprexa to oral disintegrating tablet Zydis, which is much more quickly bioavailable.? Also his lithium level on 11/17 is subtherapeutic at 0.31 And it is lower than it was when patient was taking a lower dose of lithium measured on 11/03 (0.46)implying that patient has been avoiding taking this medication consistently. Pt taking total daily [place] dose of 900mg. [place] level 0.46 on 11/03/22 Pt taking total daily [place] dose of 1200mg. [place] level 0.31 on 11/17/22 At this point music writer still does not know if these medications can be effective as it seems likely patient is not adhering with regimen; this also makes it hard to know if they should be titrated (given risk of lithium toxicity). And Even while he's getting some amount of medication in him, he remains with florid paranoid, persecutory and grandiose delusions and mistakenly thinks others are conspiring and threatening to harm him. Patient has little to no insight into his psychiatric illness.? [employer] has no reason to believe that patient will continue taking medications on discharge; almost daily, he expresses his belief that the medications are bad for him and he does not need them...and, it's questionable that he's fully taking them even now, despite having / supervision and redirection from trained staff.? If patient to discharge at this time, he would remain unsafe in the community. 11/21 patient less agitated and provocative on the unit, more calm. He does not bring up paranoid delusional thinking unless it is solicited. That said, patient remains with paranoid and grandiose delusions. And music writer thinks it is unlikely that patient will continue medications once discharged. Concern is that current medication regimen seems able to calm down the chauncey, and perhaps taken edge off some of the moment to moment paranoid thinking, however they do not seem to resolve the paranoid/grandiose delusions. 2/1 less manic; less intrusive to others; still delusional but not expressing as much 2/2 dc morning Zydis since pt may remain at current stability at total daily dose of 30mg and once a day dosing will help encourage continued adherence post discharge; will also dc vitamins as pt is eating well and again, to lessen pill-taking burden in effort to enhance adherence 2/3 expresses improved insight, sharing his consideration that beliefs may have been dreams and current ambivalence regarding if beliefs are delusional vs true. That said, in the past, pt once admitted to music writer that he fooled music writer by pretending to no longer believe his delusional thoughts, saying they delusions....only since he knew that was what music writer wanted to hear. It's possible that pt is ambivalent and also that if he remains on meds, insight will improve -currently pt is no longer perceiving threats from peers and he's no longer intrusive; not talking about delusional thoughts to others; he's sleeping and eating well; taking his meds; if he remains at current level of stability will consider dc home as mother feels ok about his discharge. He refuses to try clozapine which would be main reason to keep him longer. 11/26/22: no changes 2/6 patient decompensated, and is again expressing feeling threatened on the unit by peers and going on about paranoid, grandiose delusions; possibly due to Zyprexa being lowered to 30 mg, down from 40 mg; patient however also revealed that last week he was just telling music writer what music writer wanted to hear. Regardless, patient has regressed back to being unable to contain paranoid delusions. Patient at 1st refused any medication changes demanding discharge or court. Later patient changed his mind and said he is willing to stay longer intake clozapine. Despite taking medications which her delivered to him by staff, patient's symptoms have worsened and Patient is again mistakenly accusing others of making violent threats towards him; he is again confrontational. Currently patient requires staff supervision 14/05 to help with redirection and to avert conflict with peers. Patient is also checked every 15 minutes. At this time there is no less restrictive setting for patient. He has no insight at all and has almost daily said he does not want medication or treatment and does not think he needs it. The only time he says he will take it is and a written statement saying that he will be adherent with his medication as it pertains to him being allowed to discharge. [employer] has no reason to believe patient will continue taking medications in the community. Furthermore in the community patient is without trained staff present 24 hours a day to help patient avoid conflict with others. Patient is accusatory and willing to confront people he delusionally perceives is threatening and risks being harmed in the community. 11/28 starting clozapine 25 mg; will titrate; will cross taper Zyprexa as clinically indicated 11/29 continue tx 11/30 continue titration of clozapine; patient denies any new experiences of threats from peers 12/02 patient continues with clozapine; overall more calm on the unit. 12/03 will leave Clozapine bedtime dose at 100mg given lightheadedness this am 12/04 says he will stop sending letters Mosesn Chelita; increasing Clozapine Plan: Petition court for involuntary commitment and medication; currently continuance Q 15 minute checks Continue clozapine 25 mg in AM Increase Clozapine 125mg qhs; (will titrate, increase by 25mg daily as tolerated) ANC weekly ANC checked and within normal limits; patient registered in clozapine rems program add melatonin (at pt's request) GILSON Serna; pt does not like (did help sleep however) Discontinue trazodone; patient says seems to have activated him [place] level: 0.31 (subtherapeutic despite being therapeutic at 0.6 6 at same dose). DC ZYDIS 10 mg daily Continue ZYIDIS 30mg qhs . Continue lithium ER 1200mg qhs (this does was subtherapeutic but said nauseus at higher dose); BUN creatinine, TSH, lytes within normal limits Changed to Cogentin 0.5 mg PRN (not sure if dystonic reaction was from Haldol received in the ED or from Geodon or just combination, but has not returned) dc omeprazole; pt says only had couple days of gerd and does not think needs it In the past, these meds partially stabilized manic behaviors but did not resolve delusions: -Depakote ER 250 mg in the morning and 1000 mg q.h.s. -Risperdal 4 mg -Geodon: not effective Med trial Zyprexa: ?partially helpful as prn. Reason for contiued inpatient stay Substantial Risk for: med/psych decompensation Time Spent With Patient Time: Total time managing care of this patient today ____ minutes.
[2022-12-04] MEDS: Lithium Carbonate 300 MG CAPSULE 1200 MG PO (19:47)
[2022-12-04] MEDS: cloZAPine 25 MG TABLET 125 MG PO (19:47)
[2022-12-04] MEDS: clonazePAM 0.5 MG TABLET PO (19:48)
[2022-12-04] MEDS: Melatonin 3 MG TABLET PO (19:48)
[2022-12-04] MEDS: OLANZapine ODT 10 MG TAB.RAPDIS 30 MG TRANSLINGU (19:48)
[2022-12-04 19:54] VITALS: BP 140/83; PULSE 107; RESP 14; TEMP 37.1
[2022-12-05 06:00] VITALS: BP 131/85; PULSE 112; RESP 16
[2022-12-05] MEDS: cloZAPine 25 MG TABLET PO ×2 (08:25→20:02)
[2022-12-05 08:44] LABS: Neut%MD 61.4 %; Neutrophils Absolute Auto 3.6 x10*3/uL (2.0-8.3); WBCANC 5.8 X10*3/uL
[2022-12-05 16:30] VITALS: BP 129/78; PULSE 102; TEMP 36.8
--- NOTE | 2022-12-05 16:46 | HO.PSYCHPN ---
Subjective Subjective Date of Service: 12/05/22 Reason For Visit: chauncey Interim History: Met with patient; discussed in teams; reviewed labs and ANC 3.6 Patient reports he again felt dizzy this morning and a little jittery; screenplay writer examines hands and they are mildly tremulous. He again says that the medications are helping. On inquiry patient says he is feeling more clear minded. Rip Saw Operator inquired about letter writing and he said he is going to stop writing Francesco Musk. He feels he has communicated enough and that the 2 of them understand each other. He does say that he requested to be a was ordered for Francesco Musk for the bargan garcia of $500,000 but says he has not heard back. Mental Status Exam Mental Status Exam Narrative: Pt is alert and oriented; behavior is cooperative and more calm; anxious but less so; overly formal calling screenplay writer sir; dressed in casual attire with long, unkempt hair, glasses,; with adequate hygiene; mood is described good and affect is sometimes anxious and constricted but can be calm too; eye contact appropriate; Speech is normal rate, volume; normal prosody; not pressured; some mild to moderate psychomotor agitation present; thought process is goal directed; Thought content is with paranoid delusions and grandiose thoughts but not expressing unless asked; able to be pertinent to relevant topics discussed; denies any SI/HI. Denies AVH; though some internal preoccupations. Patients insight and judgment are impaired Diagnostics Vital Signs (24Hr): Vital Signs - 24 hr 12/04/22 19:54 12/05/22 06:00 12/05/22 16:30 Temperature 98.7 F 98.3 F Pulse Rate 107 H 112 H 102 H Respiratory Rate 14 16 Blood Pressure 140/83 H 131/85 129/78 Oxygen Delivery Method Room Air BMI result Body Mass Index 24.0 Labs 11/28/22 10:59 11/08/22 08:34 Labs: Laboratory Results - last 48 hr 12/05/22 07:57 Absolute Neuts (auto) 3.6 Medications Medications Current Medications Acetaminophen (Acetaminophen 325 Mg Tablet) 650 mg PO Q6H PRN PRN Reason: Headache/Pain Mild Scale (1-3) Last Admin: 11/26/22 19:51 Dose: 650 mg Al Hydroxide/Mg Hydroxide (Magnesium Hydrox/Alum Hydrox 30 Ml Oral.Susp) 30 ml PO Q6H PRN PRN Reason: Heartburn/Nausea Last Admin: 12/03/22 12:23 Dose: 30 ml Benztropine Mesylate (Benztropine Mesylate 0.5 Mg Tablet) 0.5 mg PO TID PRN PRN Reason: Extrapyramidal Effects Chlorpromazine HCl (Chlorpromazine Hcl 25 Mg Tablet) 50 mg PO Q4H PRN PRN Reason: anxiety/agitation Last Admin: 12/01/22 09:43 Dose: 50 mg Clonazepam (Clonazepam 0.5 Mg Tablet) 0.5 mg PO BEDTIME PRN PRN Reason: insomnia Last Admin: 12/04/22 19:48 Dose: 0.5 mg Clozapine (Clozapine 25 Mg Tablet) 125 mg PO BEDTIME VIC Clozapine (Clozapine 100 Mg Tablet) 100 mg PO BEDTIME VIC Clozapine (Clozapine 25 Mg Tablet) 25 mg PO BEDTIME VIC [place] Carbonate ([place] Carbonate 300 Mg Capsule) 1,200 mg PO BEDTIME VIC Last Admin: 12/04/22 19:47 Dose: 1,200 mg Magnesium Hydroxide (Milk Of Magnesia 30 Ml Oral.Susp) 30 ml PO DAILY PRN PRN Reason: Constipation Melatonin (Melatonin 3 Mg Tablet) 3 mg PO BEDTIME VIC Last Admin: 12/04/22 19:48 Dose: 3 mg Melatonin (Melatonin 3 Mg Tablet) 3 mg PO BEDTIME PRN PRN Reason: continued insomnia Last Admin: 12/03/22 20:39 Dose: 3 mg Nicotine Polacrilex (Nicotine Polacrilex 2 Mg Gum) 4 mg BUCCAL Q2H PRN PRN Reason: Nicotine Cravings Last Admin: 11/24/22 17:22 Dose: 4 mg Olanzapine (Olanzapine Odt 10 Mg Tab.Rapdis) 30 mg TRANSLINGU BEDTIME VIC Last Admin: 12/04/22 19:48 Dose: 30 mg Allergies Allergies Allergy/AdvReac Type Severity Reaction Status Date / Time No Known Allergies Allergy Verified 02/22/22 16:29 Assessment & Plan Assessment & Plan (1) Schizoaffective disorder, bipolar type: Status: Acute Code(s): F25.0 - Schizoaffective disorder, bipolar type (2) Chronic post-traumatic stress disorder (PTSD): Status: Acute Code(s): F43.12 - Post-traumatic stress disorder, chronic (3) Alcohol abuse: Status: Acute Code(s): F10.10 - Alcohol abuse, uncomplicated Plan Patient is a 22-year-old male with history of bipolar disorder type 1, alcohol abuse/dependence, PTSD discharged from 05/04/2022 and here for his 3rd inpatient admission in less than 1 year,, who Self presents for paranoid ideations that he is being followed by people who want to harm him in the face of having gone off his medication this past summer and relapsing with alcohol.? In the ED patient disrobing, disorganized; received Haldol for p.r.n. received Haldol as a p.r.n. -patient has history of severe manic episodes with significant psychotic features and extensive delusional beliefs that render him unable to function.? Patient also has PTSD and seems to frequently looked alcohol as a coping strategy.? On medication symptoms significantly decrease but it has never been clear whether patient has insight 10/30 patient remains with odd behavior; he is guarded and does not reveal much; remains internally preoccupied 10/31 patient psychotic with paranoid delusions.? Rip Saw Operator reassess is diagnosis and sees that patient has psychotic symptoms even when not? manic and will change diagnosis to schizoaffective.? Patient says it is okay for screenplay writer to adjust medications and that he will take whatever screenplay writer thinks past 11/01 remains with severe paranoid delusions 11/02 patient sleeping and hypomanic; remains with intense paranoid delusions including feeling that there are peers on the unit conspiring to intimidate him; patient does agree that he seems to run into trouble when he stops taking his medications, however no insight into psychiatric illness 11/03 paranoid delusions and manic behaviors persist; patient is paranoid making accusations against multiple peers thinking there conspiring against him.? Patient has no insight.? Labs returned today showing subtherapeutic lithium dose so will increase.? Patient put in another 3 day.? However he remains paranoid and accusatory to other peers, provoking them and at this time is unsafe to return to the community 11/04 remains with paranoid delusions;?Discussed case with nursing; met with patient; reviewed vitals and tachycardic 11/05 no change; continues to have paranoid and delusional thoughts; unwanted approaches to other peers on the unit who are afraid of him due to his behaviors.? Continues to insist that multiple people on the unit and in the community have plans to harm him and that he is afraid.? At this time screenplay writer is concerned for his safety.? [place] dose recently increased and needs time to become therapeutic.? Will continue to assess. 11/06 patient remains with severe paranoid and grandiose delusions; he thinks that peers are conspiring against him and says he is afraid for his safety; remains without any insight.? Says he does not want to take Geodon or lithium.? Patient is accusatory and sometimes aggressively posturing towards staff and peers.? Patient is at risk for inciting pre-emptive or retaliatory aggression from others he is accusing and challenging.? Rip Saw Operator and team agreed that patient is not safe for discharge to the community.? Discussed with team who agree that while sometimes patients chauncey can be addressed with medication, medications have yet to significantly erode paranoid delusions; however patient is not open to medication changes at this time. 11/07 severe, paranoid persecutory delusions, just during provoking to others whom he delusionally believes are conspiring against him.? Refused medications last night, though took them today. 11/08 remains with paranoid delusions, but did sleep last night. Agrees to trial of Zyprexa (will go with this med since some partial response in past and may have gotten dystonia from typical antipsychotic in ED) 11/13 remains with paranoid delusions, grandiose, or provocative towards peers whom he believes are conspiring against him. 11/14 remains with paranoid delusions, thinks people on the unit are trying to kill him. 11/15 no reduction in symptoms; will increase total daily Zyprexa dose to 40 mg.? Literature shows that typically if an antipsychotic is going to work jail for a person, it affords some reduction in symptoms early on even within a day or two; if patient's psychotic symptoms do not improve soon, will conclude that Zyprexa is not effective.? Clozapine remains the preferred medication however patient currently refuses.? Some concern for dystonic reaction from Haldol received in the emergency room;? will consider alternative 1st generation antipsychotics as well. -patient's mother is worried about vitamin-D and vitamin B deficiency; while these are rare and even less likely to have a clinical significance, will order lab work as patient agrees. 11/16 pt opening up about hx of trauma; unable to make connection with current paranoid delusion. Pt says he hates medications and thinks they are hurting him. Nursing concerned that patient is trying to check medication; will switch to Zydis 11/17 little less provocative towards peers but remains with florid paranoid and grandiose delusions. Last night patient initially refused his medications, but then later decided to take them. Today patient said he is trying to decide whether or not he should stop taking all the medications and challenge this screenplay writer in court or just continue taking medications, be in compliance and discharge.? He says he does not think the meds are working; does not think he needs them... 11/18: Continue current tx plan. Rip Saw Operator has concerns that patient is not taking medication as prescribed.? He consistently says things like he does not like them, thinks they are bad for him, does not want them.? Nursing concerned that patient trying to cheek his medication, prompting screenplay writer to change Zyprexa to oral disintegrating tablet Zydis, which is much more quickly bioavailable.? Also his lithium level on 11/17 is subtherapeutic at 0.31 And it is lower than it was when patient was taking a lower dose of lithium measured on 11/03 (0.46)implying that patient has been avoiding taking this medication consistently. Pt taking total daily [place] dose of 900mg. [place] level 0.46 on 11/03/22 Pt taking total daily [place] dose of 1200mg. [place] level 0.31 on 11/17/22 At this point screenplay writer still does not know if these medications can be effective as it seems likely patient is not adhering with regimen; this also makes it hard to know if they should be titrated (given risk of lithium toxicity). And Even while he's getting some amount of medication in him, he remains with florid paranoid, persecutory and grandiose delusions and mistakenly thinks others are conspiring and threatening to harm him. Patient has little to no insight into his psychiatric illness.? Rip Saw Operator has no reason to believe that patient will continue taking medications on discharge; almost daily, he expresses his belief that the medications are bad for him and he does not need them...and, it's questionable that he's fully taking them even now, despite having 24/ supervision and redirection from trained staff.? If patient to discharge at this time, he would remain unsafe in the community. 11/21 patient less agitated and provocative on the unit, more calm. He does not bring up paranoid delusional thinking unless it is solicited. That said, patient remains with paranoid and grandiose delusions. And screenplay writer thinks it is unlikely that patient will continue medications once discharged. Concern is that current medication regimen seems able to calm down the chauncey, and perhaps taken edge off some of the moment to moment paranoid thinking, however they do not seem to resolve the paranoid/grandiose delusions. 11/22 less manic; less intrusive to others; still delusional but not expressing as much 2/ dc morning Zydis since pt may remain at current stability at total daily dose of 30mg and once a day dosing will help encourage continued adherence post discharge; will also dc vitamins as pt is eating well and again, to lessen pill-taking burden in effort to enhance adherence 2/3 expresses improved insight, sharing his consideration that beliefs may have been dreams and current ambivalence regarding if beliefs are delusional vs true. That said, in the past, pt once admitted to screenplay writer that he fooled screenplay writer by pretending to no longer believe his delusional thoughts, saying they delusions....only since he knew that was what screenplay writer wanted to hear. It's possible that pt is ambivalent and also that if he remains on meds, insight will improve -currently pt is no longer perceiving threats from peers and he's no longer intrusive; not talking about delusional thoughts to others; he's sleeping and eating well; taking his meds; if he remains at current level of stability will consider dc home as mother feels ok about his discharge. He refuses to try clozapine which would be main reason to keep him longer. 11/26/22: no changes 11/27 patient decompensated, and is again expressing feeling threatened on the unit by peers and going on about paranoid, grandiose delusions; possibly due to Zyprexa being lowered to 30 mg, down from 40 mg; patient however also revealed that last week he was just telling screenplay writer what screenplay writer wanted to hear. Regardless, patient has regressed back to being unable to contain paranoid delusions. Patient at 1st refused any medication changes demanding discharge or court. Later patient changed his mind and said he is willing to stay longer intake clozapine. Despite taking medications which her delivered to him by staff, patient's symptoms have worsened and Patient is again mistakenly accusing others of making violent threats towards him; he is again confrontational. Currently patient requires staff supervision 14/05 to help with redirection and to avert conflict with peers. Patient is also checked every 15 minutes. At this time there is no less restrictive setting for patient. He has no insight at all and has almost daily said he does not want medication or treatment and does not think he needs it. The only time he says he will take it is and a written statement saying that he will be adherent with his medication as it pertains to him being allowed to discharge. Rip Saw Operator has no reason to believe patient will continue taking medications in the community. Furthermore in the community patient is without trained staff present 24 hours a day to help patient avoid conflict with others. Patient is accusatory and willing to confront people he delusionally perceives is threatening and risks being harmed in the community. 11/28 starting clozapine 25 mg; will titrate; will cross taper Zyprexa as clinically indicated 11/29 continue tx 11/30 continue titration of clozapine; patient denies any new experiences of threats from peers 12/02 patient continues with clozapine; overall more calm on the unit. 12/03 will leave Clozapine bedtime dose at 100mg given lightheadedness this am 12/04 says he will stop sending letters Sherwin Merlos; increasing Clozapine 12/05 maybe some side effects from clozapine; will hold tonight's dose, discontinue the morning dose and leave bedtime dose at 125 mg starting 12/06. Is hard to say if patient has improved much since starting clozapine. The fact that he says he will no longer write letters to Francesco Merlos is possibly progress; he has also been overall more calm and peaceful on the unit, not feeling threatened by anyone. He remains without insight. Plan: Petition court for involuntary commitment and medication; currently continuance Q 15 minute checks DC clozapine in AM HOLD Clozapine 125mg qhs, due to side effects; restart 12/06 Continue Zydis 30mg qhs Continue lithium ER 1200mg qhs (this does was subtherapeutic but said nauseus at higher dose); BUN creatinine, TSH, lytes within normal limits ANC weekly ANC checked and within normal limits; patient registered in clozapine rems program add melatonin (at pt's request) DC Ambien; pt does not like (did help sleep however) Dc trazodone; patient says seems to have activated him DC ZYDIS 10 mg daily Changed to Cogentin 0.5 mg PRN (not sure if dystonic reaction was from Haldol received in the ED or from Geodon or just combination, but has not returned) dc omeprazole; pt says only had couple days of gerd and does not think needs it In the past, these meds partially stabilized manic behaviors but did not resolve delusions: -Depakote ER 250 mg in the morning and 1000 mg q.h.s. -Risperdal 4 mg -Geodon: not effective Med trial Zyprexa: ?partially helpful Patient educated on: diagnosis and medication risk/benefits Informed Consent: understands, does not understand and further education needed Reason for contiued inpatient stay Substantial Risk for: med/psych decompensation Time Spent With Patient Time: Total time managing care of this patient today ____ minutes.
[2022-12-05] MEDS: OLANZapine ODT 10 MG TAB.RAPDIS 30 MG TRANSLINGU (20:01)
[2022-12-05] MEDS: cloZAPine 100 MG TABLET PO (20:02)
[2022-12-05] MEDS: Lithium Carbonate 300 MG CAPSULE 1200 MG PO (20:02)
[2022-12-05] MEDS: Melatonin 3 MG TABLET PO (20:03)
[2022-12-06 09:25] VITALS: BP 135/76; PULSE 119; RESP 16; TEMP 36.6; O2SAT 98
--- NOTE | 2022-12-06 09:53 | P.PNPSI_ITS ---
Subjective Subjective Date of Service: 12/06/22 Reason For Visit: chauncey Interim History: met with patient; discussed in teams discussed delusional thoughts; pt said he still believes these things are true (EDGARDO maurice, thinks his book got leaked), but then qualified his comments saying at least they're real to me...but i'm done with it...i'm done with kaylene...it does not matter if i believe it or not it just gets me in trouble...idon't want to go down the rabbit hole again... says will keep taking clozapine and other medications on discharge Mental Status Exam Mental Status Exam Narrative: Pt is alert and oriented; behavior is cooperative, calm, friendly; dressed in casual attire with long, combed hair, glasses; with adequate hygiene; mood is described good and affect is sometimes anxious and constricted but can be calm too; eye contact appropriate; Speech is normal rate, volume; normal prosody; not pressured; no psychomotor agitation present; thought process is goal directed; Thought content is with paranoid delusions and grandiose thoughts but not expressing unless asked; able to be pertinent to relevant topics discussed; denies any SI/HI. Denies AVH; Patients insight and judgment are impaired but improved. Diagnostics Vital Signs (24Hr): Vital Signs - 24 hr 12/05/22 16:30 12/06/22 09:25 Temperature 98.3 F 97.8 F Pulse Rate 102 H 119 H Respiratory Rate 16 Blood Pressure 129/78 135/76 Pulse Oximetry 98 Oxygen Delivery Method Room Air Room Air BMI result Body Mass Index 24.0 Labs 11/28/22 10:59 11/08/22 08:34 Labs: Laboratory Results - last 48 hr 12/05/22 07:57 Absolute Neuts (auto) 3.6 Medications Medications Current Medications Acetaminophen (Acetaminophen 325 Mg Tablet) 650 mg PO Q6H PRN PRN Reason: Headache/Pain Mild Scale (1-3) Last Admin: 11/26/22 19:51 Dose: 650 mg Al Hydroxide/Mg Hydroxide (Magnesium Hydrox/Alum Hydrox 30 Ml Oral.Susp) 30 ml PO Q6H PRN PRN Reason: Heartburn/Nausea Last Admin: 12/03/22 12:23 Dose: 30 ml Benztropine Mesylate (Benztropine Mesylate 0.5 Mg Tablet) 0.5 mg PO TID PRN PRN Reason: Extrapyramidal Effects Chlorpromazine HCl (Chlorpromazine Hcl 25 Mg Tablet) 50 mg PO Q4H PRN PRN Reason: anxiety/agitation Last Admin: 12/01/22 09:43 Dose: 50 mg Clonazepam (Clonazepam 0.5 Mg Tablet) 0.5 mg PO BEDTIME PRN PRN Reason: insomnia Last Admin: 12/04/22 19:48 Dose: 0.5 mg Clozapine (Clozapine 100 Mg Tablet) 100 mg PO BEDTIME VIC Last Admin: 12/05/22 20:02 Dose: 100 mg Clozapine (Clozapine 25 Mg Tablet) 25 mg PO BEDTIME VIC Last Admin: 12/05/22 20:02 Dose: 25 mg [place] Carbonate ([place] Carbonate 300 Mg Capsule) 1,200 mg PO BEDTIME VIC Last Admin: 12/05/22 20:02 Dose: 1,200 mg Magnesium Hydroxide (Milk Of Magnesia 30 Ml Oral.Susp) 30 ml PO DAILY PRN PRN Reason: Constipation Melatonin (Melatonin 3 Mg Tablet) 3 mg PO BEDTIME VIC Last Admin: 12/05/22 20:03 Dose: 3 mg Melatonin (Melatonin 3 Mg Tablet) 3 mg PO BEDTIME PRN PRN Reason: continued insomnia Last Admin: 12/03/22 20:39 Dose: 3 mg Nicotine Polacrilex (Nicotine Polacrilex 2 Mg Gum) 4 mg BUCCAL Q2H PRN PRN Reason: Nicotine Cravings Last Admin: 11/24/22 17:22 Dose: 4 mg Olanzapine (Olanzapine Odt 10 Mg Tab.Rapdis) 30 mg TRANSLINGU BEDTIME VIC Last Admin: 12/05/22 20:01 Dose: 30 mg Allergies Allergies Allergy/AdvReac Type Severity Reaction Status Date / Time No Known Allergies Allergy Verified 02/22/22 16:29 Assessment & Plan Assessment & Plan (1) Schizoaffective disorder, bipolar type: Status: Acute Code(s): F25.0 - Schizoaffective disorder, bipolar type (2) Chronic post-traumatic stress disorder (PTSD): Status: Acute Code(s): F43.12 - Post-traumatic stress disorder, chronic (3) Alcohol abuse: Status: Acute Code(s): F10.10 - Alcohol abuse, uncomplicated Plan Patient is a 22-year-old male with history of bipolar disorder type 1, alcohol abuse/dependence, PTSD discharged from 05/04/2022 and here for his 3rd inpatient admission in less than 1 year,, who Self presents for paranoid ideations that he is being followed by people who want to harm him in the face of having gone off his medication this past summer and relapsing with alcohol.? In the ED patient disrobing, disorganized; received Haldol for p.r.n. received Haldol as a p.r.n. -patient has history of severe manic episodes with significant psychotic features and extensive delusional beliefs that render him unable to function.? Patient also has PTSD and seems to frequently looked alcohol as a coping strategy.? On medication symptoms significantly decrease but it has never been clear whether patient has insight 10/30 patient remains with odd behavior; he is guarded and does not reveal much; remains internally preoccupied 10/31 patient psychotic with paranoid delusions.? Salvage Machine Operator reassess is diagnosis and sees that patient has psychotic symptoms even when not? manic and will change diagnosis to schizoaffective.? Patient says it is okay for aligner typewriter to adjust medications and that he will take whatever aligner typewriter thinks past 11/01 remains with severe paranoid delusions 11/02 patient sleeping and hypomanic; remains with intense paranoid delusions including feeling that there are peers on the unit conspiring to intimidate him; patient does agree that he seems to run into trouble when he stops taking his medications, however no insight into psychiatric illness 11/03 paranoid delusions and manic behaviors persist; patient is paranoid making accusations against multiple peers thinking there conspiring against him.? Patient has no insight.? Labs returned today showing subtherapeutic lithium dose so will increase.? Patient put in another 3 day.? However he remains paranoid and accusatory to other peers, provoking them and at this time is unsafe to return to the community 11/04 remains with paranoid delusions;?Discussed case with nursing; met with patient; reviewed vitals and tachycardic 11/05 no change; continues to have paranoid and delusional thoughts; unwanted approaches to other peers on the unit who are afraid of him due to his behaviors.? Continues to insist that multiple people on the unit and in the community have plans to harm him and that he is afraid.? At this time aligner typewriter is concerned for his safety.? [place] dose recently increased and needs time to become therapeutic.? Will continue to assess. 11/06 patient remains with severe paranoid and grandiose delusions; he thinks that peers are conspiring against him and says he is afraid for his safety; remains without any insight.? Says he does not want to take Geodon or lithium.? Patient is accusatory and sometimes aggressively posturing towards staff and peers.? Patient is at risk for inciting pre-emptive or retaliatory aggression from others he is accusing and challenging.? Salvage Machine Operator and team agreed that patient is not safe for discharge to the community.? Discussed with team who agree that while sometimes patients chauncey can be addressed with medication, medications have yet to significantly erode paranoid delusions; however patient is not open to medication changes at this time. 11/07 severe, paranoid persecutory delusions, just during provoking to others whom he delusionally believes are conspiring against him.? Refused medications last night, though took them today. 11/08 remains with paranoid delusions, but did sleep last night. Agrees to trial of Zyprexa (will go with this med since some partial response in past and may have gotten dystonia from typical antipsychotic in ED) 11/13 remains with paranoid delusions, grandiose, or provocative towards peers whom he believes are conspiring against him. 11/14 remains with paranoid delusions, thinks people on the unit are trying to kill him. 11/15 no reduction in symptoms; will increase total daily Zyprexa dose to 40 mg.? Literature shows that typically if an antipsychotic is going to work long-term for a person, it affords some reduction in symptoms early on even within a day or two; if patient's psychotic symptoms do not improve soon, will conclude that Zyprexa is not effective.? Clozapine remains the preferred medication however patient currently refuses.? Some concern for dystonic reaction from Haldol received in the emergency room;? will consider alternative 1st generation antips ychotics as well. -patient's mother is worried about vitamin-D and vitamin B deficiency; while these are rare and even less likely to have a clinical significance, will order lab work as patient agrees. 11/16 pt opening up about hx of trauma; unable to make connection with current paranoid delusion. Pt says he hates medications and thinks they are hurting him. Nursing concerned that patient is trying to check medication; will switch to Zydis 11/17 little less provocative towards peers but remains with florid paranoid and grandiose delusions. Last night patient initially refused his medications, but then later decided to take them. Today patient said he is trying to decide whether or not he should stop taking all the medications and challenge this aligner typewriter in court or just continue taking medications, be in compliance and discharge.? He says he does not think the meds are working; does not think he needs them... 11/18: Continue current tx plan. Salvage Machine Operator has concerns that patient is not taking medication as prescribed.? He consistently says things like he does not like them, thinks they are bad for him, does not want them.? Nursing concerned that patient trying to cheek his medication, prompting aligner typewriter to change Zyprexa to oral disintegrating tablet Zydis, which is much more quickly bioavailable.? Also his lithium level on 11/17 is subtherapeutic at 0.31 And it is lower than it was when patient was taking a lower dose of lithium measured on 11/03 (0.46)implying that patient has been avoiding taking this medication consistently. Pt taking total daily [place] dose of 900mg. [place] level 0.46 on 11/03/22 Pt taking total daily [place] dose of 1200mg. [place] level 0.31 on 11/17/22 At this point aligner typewriter still does not know if these medications can be effective as it seems likely patient is not adhering with regimen; this also makes it hard to know if they should be titrated (given risk of lithium toxicity). And Even while he's getting some amount of medication in him, he remains with florid paranoid, persecutory and grandiose delusions and mistakenly thinks others are conspiring and threatening to harm him. Patient has little to no insight into his psychiatric illness.? Salvage Machine Operator has no reason to believe that patient will continue taking medications on discharge; almost daily, he expresses his belief that the medications are bad for him and he does not need them...and, it's questionable that he's fully taking them even now, despite having 24/7 supervision and redirection from trained staff.? If patient to discharge at this time, he would remain unsafe in the community. 11/21 patient less agitated and provocative on the unit, more calm. He does not bring up paranoid delusional thinking unless it is solicited. That said, patient remains with paranoid and grandiose delusions. And aligner typewriter thinks it is unlikely that patient will continue medications once discharged. Concern is that current medication regimen seems able to calm down the chauncey, and perhaps taken edge off some of the moment to moment paranoid thinking, however they do not seem to resolve the paranoid/grandiose delusions. 11/22 less manic; less intrusive to others; still delusional but not expressing as much 2/ dc morning Zydis since pt may remain at current stability at total daily dose of 30mg and once a day dosing will help encourage continued adherence post discharge; will also dc vitamins as pt is eating well and again, to lessen pill- taking burden in effort to enhance adherence 2/3 expresses improved insight, sharing his consideration that beliefs may have been dreams and current ambivalence regarding if beliefs are delusional vs true. That said, in the past, pt once admitted to aligner typewriter that he fooled aligner typewriter by pretending to no longer believe his delusional thoughts, saying they del usions....only since he knew that was what aligner typewriter wanted to hear. It's possible that pt is ambivalent and also that if he remains on meds, insight will improve -currently pt is no longer perceiving threats from peers and he's no longer intrusive; not talking about delusional thoughts to others; he's sleeping and eating well; taking his meds; if he remains at current level of stability will consider dc home as mother feels ok about his discharge. He refuses to try clozapine which would be main reason to keep him longer. 11/26/22: no changes 2 patient decompensated, and is again expressing feeling threatened on the unit by peers and going on about paranoid, grandiose delusions; possibly due to Zyprexa being lowered to 30 mg, down from 40 mg; patient however also revealed that last week he was just telling aligner typewriter what aligner typewriter wanted to hear. Regardless, patient has regressed back to being unable to contain paranoid delusions. Patient at 1st refused any medication changes demanding discharge or court. Later patient changed his mind and said he is willing to stay longer intake clozapine. Despite taking medications which her delivered to him by staff, patient's symptoms have worsened and Patient is again mistakenly accusing others of making violent threats towards him; he is again confrontational. Currently patient requires staff supervision 14/05 to help with redirection and to avert conflict with peers. Patient is also checked every 15 minutes. At this time there is no less restrictive setting for patient. He has no insight at all and has almost daily said he does not want medication or treatment and does not think he needs it. The only time he says he will take it is and a written statement saying that he will be adherent with his medication as it pertains to him being allowed to discharge. Salvage Machine Operator has no reason to believe patient will continue taking medications in the community. Furthermore in the community patient is without trained staff present 24 hours a day to help patient avoid conflict with others. Patient is accusatory and willing to confront people he delusionally perceives is threatening and risks being harmed in the community. 11/28 starting clozapine 25 mg; will titrate; will cross taper Zyprexa as clinically indicated 11/29 continue tx 11/30 continue titration of clozapine; patient denies any new experiences of threats from peers 12/02 patient continues with clozapine; overall more calm on the unit. 12/03 will leave Clozapine bedtime dose at 100mg given lightheadedness this am 12/04 says he will stop sending letters Sherwin Merlos; increasing Clozapine 12/05 maybe some side effects from clozapine; will hold tonight's dose, discontinue the morning dose and leave bedtime dose at 125 mg starting 12/06. Is hard to say if patient has improved much since starting clozapine. The fact that he says he will no longer write letters to Francesco Merlos is possibly progress; he has also been overall more calm and peaceful on the unit, not feeling threate piage by anyone. He remains without insight. 12/06 still has delusional thoughts (grandiose but no longer w/ paranoia) but is more able to compartmentalize them and operate w/out being as influenced by them; no paranoid thoughts about peers, others. More calm, pleasant and able to joke appropriately with others. Plan: Petition court for involuntary commitment and medication; currently continuance Q 15 minute checks DC clozapine in AM Continue Clozapine 125mg qhs, Continue Zydis 30mg qhs Continue lithium ER 1200mg qhs (this does was subtherapeutic but said nauseus at higher dose); BUN creatinine, TSH, lytes within normal limits ANC weekly ANC checked and within normal limits; patient registered in clozapine rems program add melatonin (at pt's request) DC Ambien; pt does not like (did help sleep however) Dc trazodone; patient says seems to have activated him DC ZYDIS 10 mg daily Changed to Cogentin 0.5 mg PRN (not sure if dystonic reaction was from Haldol received in the ED or from Geodon or just combination, but has not returned) dc omeprazole; pt says only had couple days of gerd and does not think needs it In the past, these meds partially stabilized manic behaviors but did not resolve delusions: -Depakote ER 250 mg in the morning and 1000 mg q.h.s. -Risperdal 4 mg -Geodon: not effective Med trial Zyprexa: ?partially helpful Patient educated on: diagnosis and medication risk/benefits Informed Consent: understands, does not understand and further education needed Reason for contiued inpatient stay Substantial Risk for: stable for discharge Time Spent With Patient Time: Total time managing care of this patient today ____ minutes.
[2022-12-06 18:00] VITALS: BP 137/93; PULSE 114; RESP 20; TEMP 36.1; O2SAT 98
[2022-12-06] MEDS: cloZAPine 100 MG TABLET PO (20:03)
[2022-12-06] MEDS: cloZAPine 25 MG TABLET PO (20:03)
[2022-12-06] MEDS: Melatonin 3 MG TABLET PO (20:04)
[2022-12-06] MEDS: Lithium Carbonate 300 MG CAPSULE 1200 MG PO (20:04)
[2022-12-06] MEDS: OLANZapine ODT 10 MG TAB.RAPDIS 30 MG TRANSLINGU (20:04)
[2022-12-07 06:00] VITALS: BP 130/70; PULSE 94; TEMP 36.6; O2SAT 99
[2022-12-07 12:49] VITALS: BMI 23.6
[2022-12-07 16:38] VITALS: BP 127/76; PULSE 105
--- NOTE | 2022-12-07 18:19 | HO.PSYCHPN ---
Subjective Subjective Date of Service: 12/07/22 Reason For Visit: chauncey Interim History: pt seen; discussed in teams pt overheard on phone saying he does not like Clozapine, that it's not good for him and will stop taking it at home. Program Evaluator inquired and he said he does not remember saying this...but that he talked to his mother who made an appointment with [facility] provider that treats with diet rather then medications; he said there are hospitals in [facility] that dont treat psychosis with medications...He said however that he'll continue taking his medications until that appointment. Mental Status Exam Mental Status Exam Narrative: Pt is alert and oriented; behavior is cooperative, calm, friendly; dressed in casual attire with long, combed hair, glasses; with adequate hygiene; mood is described good and affect is sometimes anxious and constricted but can be calm too; eye contact appropriate; Speech is normal rate, volume; normal prosody; not pressured; no psychomotor agitation present; thought process is goal directed; Thought content is with paranoid delusions and grandiose thoughts but not expressing unless asked; able to be pertinent to relevant topics discussed; denies any SI/HI. Denies AVH; Patients insight and judgment are impaired but improved. Diagnostics Vital Signs (24Hr): Vital Signs - 24 hr 12/07/22 06:00 12/07/22 16:38 Temperature 97.8 F Pulse Rate 94 105 H Blood Pressure 130/70 127/76 Pulse Oximetry 99 Oxygen Delivery Method Room Air BMI result Body Mass Index 23.6 Labs 11/28/22 10:59 11/08/22 08:34 Medications Medications Current Medications Acetaminophen (Acetaminophen 325 Mg Tablet) 650 mg PO Q6H PRN PRN Reason: Headache/Pain Mild Scale (1-3) Last Admin: 11/26/22 19:51 Dose: 650 mg Al Hydroxide/Mg Hydroxide (Magnesium Hydrox/Alum Hydrox 30 Ml Oral.Susp) 30 ml PO Q6H PRN PRN Reason: Heartburn/Nausea Last Admin: 12/03/22 12:23 Dose: 30 ml Benztropine Mesylate (Benztropine Mesylate 0.5 Mg Tablet) 0.5 mg PO TID PRN PRN Reason: Extrapyramidal Effects Chlorpromazine HCl (Chlorpromazine Hcl 25 Mg Tablet) 50 mg PO Q4H PRN PRN Reason: anxiety/agitation Last Admin: 12/01/22 09:43 Dose: 50 mg Clonazepam (Clonazepam 0.5 Mg Tablet) 0.5 mg PO BEDTIME PRN PRN Reason: insomnia Last Admin: 12/04/22 19:48 Dose: 0.5 mg Clozapine (Clozapine 100 Mg Tablet) 100 mg PO BEDTIME VIC Last Admin: 12/06/22 20:03 Dose: 100 mg Clozapine (Clozapine 25 Mg Tablet) 25 mg PO BEDTIME VIC Last Admin: 12/06/22 20:03 Dose: 25 mg [place] Carbonate ([place] Carbonate 300 Mg Capsule) 1,200 mg PO BEDTIME IVC Last Admin: 12/06/22 20:04 Dose: 1,200 mg Magnesium Hydroxide (Milk Of Magnesia 30 Ml Oral.Susp) 30 ml PO DAILY PRN PRN Reason: Constipation Melatonin (Melatonin 3 Mg Tablet) 3 mg PO BEDTIME VIC Last Admin: 12/06/22 20:04 Dose: 3 mg Melatonin (Melatonin 3 Mg Tablet) 3 mg PO BEDTIME PRN PRN Reason: continued insomnia Last Admin: 12/03/22 20:39 Dose: 3 mg Nicotine Polacrilex (Nicotine Polacrilex 2 Mg Gum) 4 mg BUCCAL Q2H PRN PRN Reason: Nicotine Cravings Last Admin: 11/24/22 17:22 Dose: 4 mg Olanzapine (Olanzapine Odt 10 Mg Tab.Rapdis) 30 mg TRANSLINGU BEDTIME VIC Last Admin: 12/06/22 20:04 Dose: 30 mg Allergies Allergies Allergy/AdvReac Type Severity Reaction Status Date / Time No Known Allergies Allergy Verified 02/22/22 16:29 Assessment & Plan Assessment & Plan (1) Schizoaffective disorder, bipolar type: Status: Acute Code(s): F25.0 - Schizoaffective disorder, bipolar type (2) Chronic post-traumatic stress disorder (PTSD): Status: Acute Code(s): F43.12 - Post-traumatic stress disorder, chronic (3) Alcohol abuse: Status: Acute Code(s): F10.10 - Alcohol abuse, uncomplicated Plan Patient is a 22-year-old male with history of bipolar disorder type 1, alcohol abuse/dependence, PTSD discharged from 05/04/2022 and here for his 3rd inpatient admission in less than 1 year,, who Self presents for paranoid ideations that he is being followed by people who want to harm him in the face of having gone off his medication this past summer and relapsing with alcohol.? In the ED patient disrobing, disorganized; received Haldol for p.r.n. received Haldol as a p.r.n. -patient has history of severe manic episodes with significant psychotic features and extensive delusional beliefs that render him unable to function.? Patient also has PTSD and seems to frequently looked alcohol as a coping strategy.? On medication symptoms significantly decrease but it has never been clear whether patient has insight 10/30 patient remains with odd behavior; he is guarded and does not reveal much; remains internally preoccupied 10/31 patient psychotic with paranoid delusions.? Program Evaluator reassess is diagnosis and sees that patient has psychotic symptoms even when not? manic and will change diagnosis to schizoaffective.? Patient says it is okay for typewriter operator automatic to adjust medications and that he will take whatever typewriter operator automatic thinks past 11/01 remains with severe paranoid delusions 11/02 patient sleeping and hypomanic; remains with intense paranoid delusions including feeling that there are peers on the unit conspiring to intimidate him; patient does agree that he seems to run into trouble when he stops taking his medications, however no insight into psychiatric illness 11/03 paranoid delusions and manic behaviors persist; patient is paranoid making accusations against multiple peers thinking there conspiring against him.? Patient has no insight.? Labs returned today showing subtherapeutic lithium dose so will increase.? Patient put in another 3 day.? However he remains paranoid and accusatory to other peers, provoking them and at this time is unsafe to return to the community 11/04 remains with paranoid delusions;?Discussed case with nursing; met with patient; reviewed vitals and tachycardic 11/05 no change; continues to have paranoid and delusional thoughts; unwanted approaches to other peers on the unit who are afraid of him due to his behaviors.? Continues to insist that multiple people on the unit and in the community have plans to harm him and that he is afraid.? At this time typewriter operator automatic is concerned for his safety.? [place] dose recently increased and needs time to become therapeutic.? Will continue to assess. 11/06 patient remains with severe paranoid and grandiose delusions; he thinks that peers are conspiring against him and says he is afraid for his safety; remains without any insight.? Says he does not want to take Geodon or lithium.? Patient is accusatory and sometimes aggressively posturing towards staff and peers.? Patient is at risk for inciting pre-emptive or retaliatory aggression from others he is accusing and challenging.? Program Evaluator and team agreed that patient is not safe for discharge to the community.? Discussed with team who agree that while sometimes patients chauncey can be addressed with medication, medications have yet to significantly erode paranoid delusions; however patient is not open to medication changes at this time. 11/07 severe, paranoid persecutory delusions, just during provoking to others whom he delusionally believes are conspiring against him.? Refused medications last night, though took them today. 11/08 remains with paranoid delusions, but did sleep last night. Agrees to trial of Zyprexa (will go with this med since some partial response in past and may have gotten dystonia from typical antipsychotic in ED) 11/13 remains with paranoid delusions, grandiose, or provocative towards peers whom he believes are conspiring against him. 11/14 remains with paranoid delusions, thinks people on the unit are trying to kill him. 11/15 no reduction in symptoms; will increase total daily Zyprexa dose to 40 mg.? Literature shows that typically if an antipsychotic is going to work termite exterminator for a person, it affords some reduction in symptoms early on even within a day or two; if patient's psychotic symptoms do not improve soon, will conclude that Zyprexa is not effective.? Clozapine remains the preferred medication however patient currently refuses.? Some concern for dystonic reaction from Haldol received in the emergency room;? will consider alternative 1st generation antipsychotics as well. -patient's mother is worried about vitamin-D and vitamin B deficiency; while these are rare and even less likely to have a clinical significance, will order lab work as patient agrees. 11/16 pt opening up about hx of trauma; unable to make connection with current paranoid delusion. Pt says he hates medications and thinks they are hurting him. Nursing concerned that patient is trying to check medication; will switch to Zydis 1/27 little less provocative towards peers but remains with florid paranoid and grandiose delusions. Last night patient initially refused his medications, but then later decided to take them. Today patient said he is trying to decide whether or not he should stop taking all the medications and challenge this typewriter operator automatic in court or just continue taking medications, be in compliance and discharge.? He says he does not think the meds are working; does not think he needs them... 11/18: Continue current tx plan. Program Evaluator has concerns that patient is not taking medication as prescribed.? He consistently says things like he does not like them, thinks they are bad for him, does not want them.? Nursing concerned that patient trying to cheek his medication, prompting typewriter operator automatic to change Zyprexa to oral disintegrating tablet Zydis, which is much more quickly bioavailable.? Also his lithium level on 11/17 is subtherapeutic at 0.31 And it is lower than it was when patient was taking a lower dose of lithium measured on 11/03 (0.46)implying that patient has been avoiding taking this medication consistently. Pt taking total daily [place] dose of 900mg. [place] level 0.46 on 11/03/22 Pt taking total daily [place] dose of 1200mg. [place] level 0.31 on 11/17/22 At this point typewriter operator automatic still does not know if these medications can be effective as it seems likely patient is not adhering with regimen; this also makes it hard to know if they should be titrated (given risk of lithium toxicity). And Even while he's getting some amount of medication in him, he remains with florid paranoid, persecutory and grandiose delusions and mistakenly thinks others are conspiring and threatening to harm him. Patient has little to no insight into his psychiatric illness.? Program Evaluator has no reason to believe that patient will continue taking medications on discharge; almost daily, he expresses his belief that the medications are bad for him and he does not need them...and, it's questionable that he's fully taking them even now, despite having 24/ supervision and redirection from trained staff.? If patient to discharge at this time, he would remain unsafe in the community. 11/21 patient less agitated and provocative on the unit, more calm. He does not bring up paranoid delusional thinking unless it is solicited. That said, patient remains with paranoid and grandiose delusions. And typewriter operator automatic thinks it is unlikely that patient will continue medications once discharged. Concern is that current medication regimen seems able to calm down the chauncey, and perhaps taken edge off some of the moment to moment paranoid thinking, however they do not seem to resolve the paranoid/grandiose delusions. 2/1 less manic; less intrusive to others; still delusional but not expressing as much 2/2 dc morning Zydis since pt may remain at current stability at total daily dose of 30mg and once a day dosing will help encourage continued adherence post discharge; will also dc vitamins as pt is eating well and again, to lessen pill-taking burden in effort to enhance adherence 2/3 expresses improved insight, sharing his consideration that beliefs may have been dreams and current ambivalence regarding if beliefs are delusional vs true. That said, in the past, pt once admitted to typewriter operator automatic that he fooled typewriter operator automatic by pretending to no longer believe his delusional thoughts, saying they delusions....only since he knew that was what typewriter operator automatic wanted to hear. It's possible that pt is ambivalent and also that if he remains on meds, insight will improve -currently pt is no longer perceiving threats from peers and he's no longer intrusive; not talking about delusional thoughts to others; he's sleeping and eating well; taking his meds; if he remains at current level of stability will consider dc home as mother feels ok about his discharge. He refuses to try clozapine which would be main reason to keep him longer. 11/26/22: no changes 2/6 patient decompensated, and is again expressing feeling threatened on the unit by peers and going on about paranoid, grandiose delusions; possibly due to Zyprexa being lowered to 30 mg, down from 40 mg; patient however also revealed that last week he was just telling typewriter operator automatic what typewriter operator automatic wanted to hear. Regardless, patient has regressed back to being unable to contain paranoid delusions. Patient at 1st refused any medication changes demanding discharge or court. Later patient changed his mind and said he is willing to stay longer intake clozapine. Despite taking medications which her delivered to him by staff, patient's symptoms have worsened and Patient is again mistakenly accusing others of making violent threats towards him; he is again confrontational. Currently patient requires staff supervision 14/05 to help with redirection and to avert conflict with peers. Patient is also checked every 15 minutes. At this time there is no less restrictive setting for patient. He has no insight at all and has almost daily said he does not want medication or treatment and does not think he needs it. The only time he says he will take it is and a written statement saying that he will be adherent with his medication as it pertains to him being allowed to discharge. Program Evaluator has no reason to believe patient will continue taking medications in the community. Furthermore in the community patient is without trained staff present 24 hours a day to help patient avoid conflict with others. Patient is accusatory and willing to confront people he delusionally perceives is threatening and risks being harmed in the community. 11/28 starting clozapine 25 mg; will titrate; will cross taper Zyprexa as clinically indicated 11/29 continue tx 11/30 continue titration of clozapine; patient denies any new experiences of threats from peers 12/02 patient continues with clozapine; overall more calm on the unit. 12/03 will leave Clozapine bedtime dose at 100mg given lightheadedness this am 12/04 says he will stop sending letters Sherwin Merlos; increasing Clozapine 12/05 maybe some side effects from clozapine; will hold tonight's dose, discontinue the morning dose and leave bedtime dose at 125 mg starting 12/06. Is hard to say if patient has improved much since starting clozapine. The fact that he says he will no longer write letters to Francesco Merlos is possibly progress; he has also been overall more calm and peaceful on the unit, not feeling threatened by anyone. He remains without insight. 12/06 still has delusional thoughts (grandiose but no longer w/ paranoia) but is more able to compartmentalize them and operate w/out being as influenced by them; no paranoid thoughts about peers, others. More calm, pleasant and able to joke appropriately with others.? 12/07 ambivalence about need for medications and whether alternative therapies might work; influenced by his mothers perspective; typewriter operator automatic has discussed patients need for medication with his mother numerous times and how alternative/diet therapy will likely result in complete return of chauncey and delusions. Program Evaluator provided education to patient how going off medications will result in return of symptoms and very likely return to hospital; pt thanked typewriter operator automatic for education and will continue to consider staying on meds -that said, pt remains in good mood, congenial w/ staff and peers, sleeping well, eating well, no paranoia. If patient remains stable, will likely dc next week. Plan: Petition court for involuntary commitment and medication; currently continuance Q 15 minute checks Continue Clozapine 125mg qhs,? Continue Zydis 30mg qhs Continue lithium ER 1200mg qhs (this does was subtherapeutic but said nauseus at higher dose); BUN creatinine, TSH, lytes within normal limits ANC weekly ANC checked and within normal limits; patient registered in clozapine rems program add melatonin (at pt's request) DC Ambien; pt does not like (did help sleep however) Dc trazodone; patient says seems to have activated him DC ZYDIS 10 mg daily Changed to Cogentin 0.5 mg PRN (not sure if dystonic reaction was from Haldol received in the ED or from Geodon or just combination, but has not returned) dc omeprazole; pt says only had couple days of gerd and does not think needs it In the past, these meds partially stabilized manic behaviors but did not resolve delusions: -Depakote ER 250 mg in the morning and 1000 mg q.h.s. -Risperdal 4 mg -Geodon: not effective Med trial Zyprexa: ?partially helpful Patient educated on: diagnosis and medication risk/benefits Informed Consent: does not understand and further education needed Reason for contiued inpatient stay Substantial Risk for: stable for discharge Time Spent With Patient Time: Total time managing care of this patient today ____ minutes.
[2022-12-07] MEDS: cloZAPine 100 MG TABLET PO (19:30)
[2022-12-07] MEDS: Lithium Carbonate 300 MG CAPSULE 1200 MG PO (19:30)
[2022-12-07] MEDS: Melatonin 3 MG TABLET PO (19:31)
[2022-12-07] MEDS: cloZAPine 25 MG TABLET PO (19:31)
[2022-12-07] MEDS: OLANZapine ODT 10 MG TAB.RAPDIS 30 MG TRANSLINGU (19:31)
[2022-12-08 06:00] VITALS: BP 137/76; PULSE 100; RESP 14; TEMP 36.3; O2SAT 99
[2022-12-08 16:37] VITALS: BP 138/84; PULSE 102
--- NOTE | 2022-12-08 18:01 | P.PNPSI_ITS ---
Subjective Subjective Date of Service: 12/08/22 Reason For Visit: chauncey Interim History: met with patient; discussed in teams no change in presentation; friendly calm, no paranoia; limited insight but adherent w/ plan; says will continue meds on discharge. Mental Status Exam Mental Status Exam Narrative: Pt is alert and oriented; behavior is cooperative, calm, friendly; dressed in casual attire with long, combed hair, glasses; with adequate hygiene; mood is described good and affect is congruent, more calm and relaxed; sometimes anxious; eye contact appropriate; Speech is normal rate, volume; normal prosody; not pressured; no psychomotor agitation present; thought process is goal directed; Thought content is with paranoid delusions and grandiose thoughts but not expressing unless asked; able to be pertinent to relevant topics discussed; denies any SI/HI. Denies AVH; Patients insight and judgment are impaired but improved. Diagnostics Vital Signs (24Hr): Vital Signs - 24 hr 12/08/22 06:00 12/08/22 16:37 Temperature 97.3 F Pulse Rate 100 102 H Respiratory Rate 14 Blood Pressure 137/76 138/84 Pulse Oximetry 99 Oxygen Delivery Method Room Air BMI result Body Mass Index 23.6 Labs 11/28/22 10:59 11/08/22 08:34 Medications Medications Current Medications Acetaminophen (Acetaminophen 325 Mg Tablet) 650 mg PO Q6H PRN PRN Reason: Headache/Pain Mild Scale (1-3) Last Admin: 11/26/22 19:51 Dose: 650 mg Al Hydroxide/Mg Hydroxide (Magnesium Hydrox/Alum Hydrox 30 Ml Oral.Susp) 30 ml PO Q6H PRN PRN Reason: Heartburn/Nausea Last Admin: 12/03/22 12:23 Dose: 30 ml Benztropine Mesylate (Benztropine Mesylate 0.5 Mg Tablet) 0.5 mg PO TID PRN PRN Reason: Extrapyramidal Effects Chlorpromazine HCl (Chlorpromazine Hcl 25 Mg Tablet) 50 mg PO Q4H PRN PRN Reason: anxiety/agitation Last Admin: 12/01/22 09:43 Dose: 50 mg Clonazepam (Clonazepam 0.5 Mg Tablet) 0.5 mg PO BEDTIME PRN PRN Reason: insomnia Last Admin: 12/04/22 19:48 Dose: 0.5 mg Clozapine (Clozapine 100 Mg Tablet) 100 mg PO BEDTIME VIC Last Admin: 12/07/22 19:30 Dose: 100 mg Clozapine (Clozapine 25 Mg Tablet) 25 mg PO BEDTIME VIC Last Admin: 12/07/22 19:31 Dose: 25 mg Famotidine (Famotidine 20 Mg Tablet) 20 mg PO BID PRN PRN Reason: gerd Del Aire Carbonate (Del Aire Carbonate 300 Mg Capsule) 1,200 mg PO BEDTIME VIC Last Admin: 12/07/22 19:30 Dose: 1,200 mg Magnesium Hydroxide (Milk Of Magnesia 30 Ml Oral.Susp) 30 ml PO DAILY PRN PRN Reason: Constipation Melatonin (Melatonin 3 Mg Tablet) 3 mg PO BEDTIME VIC Last Admin: 12/07/22 19:31 Dose: 3 mg Melatonin (Melatonin 3 Mg Tablet) 3 mg PO BEDTIME PRN PRN Reason: continued insomnia Last Admin: 12/03/22 20:39 Dose: 3 mg Nicotine Polacrilex (Nicotine Polacrilex 2 Mg Gum) 4 mg BUCCAL Q2H PRN PRN Reason: Nicotine Cravings Last Admin: 11/24/22 17:22 Dose: 4 mg Olanzapine (Olanzapine Odt 10 Mg Tab.Rapdis) 30 mg TRANSLINGU BEDTIME VIC Last Admin: 12/07/22 19:31 Dose: 30 mg Allergies Allergies Allergy/AdvReac Type Severity Reaction Status Date / Time No Known Allergies Allergy Verified 02/22/22 16:29 Assessment & Plan Assessment & Plan (1) Schizoaffective disorder, bipolar type: Status: Acute Code(s): F25.0 - Schizoaffective disorder, bipolar type (2) Chronic post-traumatic stress disorder (PTSD): Status: Acute Code(s): F43.12 - Post-traumatic stress disorder, chronic (3) Alcohol abuse: Status: Acute Code(s): F10.10 - Alcohol abuse, uncomplicated Plan Patient is a 22-year-old male with history of bipolar disorder type 1, alcohol abuse/dependence, PTSD discharged from 05/04/2022 and here for his 3rd inpatient admission in less than 1 year,, who Self presents for paranoid ideations that he is being followed by people who want to harm him in the face of having gone off his medication this past summer and relapsing with alcohol.? In the ED patient disrobing, disorganized; received Haldol for p.r.n. received Haldol as a p.r.n. -patient has history of severe manic episodes with significant psychotic features and extensive delusional beliefs that render him unable to function.? Patient also has PTSD and seems to frequently looked alcohol as a coping strategy.? On medication symptoms significantly decrease but it has never been clear whether patient has insight 10/30 patient remains with odd behavior; he is guarded and does not reveal much; remains internally preoccupied 10/31 patient psychotic with paranoid delusions.? Sheet Rock Taper Helper reassess is diagnosis and sees that patient has psychotic symptoms even when not? manic and will change diagnosis to schizoaffective.? Patient says it is okay for short story writer to adjust medications and that he will take whatever short story writer thinks past 11/01 remains with severe paranoid delusions 11/02 patient sleeping and hypomanic; remains with intense paranoid delusions including feeling that there are peers on the unit conspiring to intimidate him; patient does agree that he seems to run into trouble when he stops taking his medications, however no insight into psychiatric illness 11/03 paranoid delusions and manic behaviors persist; patient is paranoid making accusations against multiple peers thinking there conspiring against him.? Patient has no insight.? Labs returned today showing subtherapeutic lithium dose so will increase.? Patient put in another 3 day.? However he remains paranoid and accusatory to other peers, provoking them and at this time is unsafe to return to the community 11/04 remains with paranoid delusions;?Discussed case with nursing; met with patient; reviewed vitals and tachycardic 11/05 no change; continues to have paranoid and delusional thoughts; unwanted approaches to other peers on the unit who are afraid of him due to his behaviors.? Continues to insist that multiple people on the unit and in the community have plans to harm him and that he is afraid.? At this time short story writer is concerned for his safety.? Del Aire dose recently increased and needs time to become therapeutic.? Will continue to assess. 11/06 patient remains with severe paranoid and grandiose delusions; he thinks that peers are conspiring against him and says he is afraid for his safety; remains without any insight.? Says he does not want to take Geodon or lithium.? Patient is accusatory and sometimes aggressively posturing towards staff and peers.? Patient is at risk for inciting pre-emptive or retaliatory aggression from others he is accusing and challenging.? Sheet Rock Taper Helper and team agreed that patient is not safe for discharge to the community.? Discussed with team who agree that while sometimes patients chauncey can be addressed with medication, medications have yet to significantly erode paranoid delusions; however patient is not open to medication changes at this time. 11/07 severe, paranoid persecutory delusions, just during provoking to others whom he delusionally believes are conspiring against him.? Refused medications last night, though took them today. 11/08 remains with paranoid delusions, but did sleep last night. Agrees to trial of Zyprexa (will go with this med since some partial response in past and may hercules ve gotten dystonia from typical antipsychotic in ED) 11/13 remains with paranoid delusions, grandiose, or provocative towards peers whom he believes are conspiring against him. 11/14 remains with paranoid delusions, thinks people on the unit are trying to kill him. 11/15 no reduction in symptoms; will increase total daily Zyprexa dose to 40 mg.? Literature shows that typically if an antipsychotic is going to work detention for a person, it affords some reduction in symptoms early on even within a day or two; if patient's psychotic symptoms do not improve soon, will conclude that Zyprexa is not effective.? Clozapine remains the preferred medication however patient currently refuses.? Some concern for dystonic reaction from Haldol received in the emergency room;? will consider alternative 1st generation antipsychotics as well. -patient's mother is worried about vitamin-D and vitamin B deficiency; while these are rare and even less likely to have a clinical significance, will order lab work as patient agrees. 11/16 pt opening up about hx of trauma; unable to make connection with current paranoid delusion. Pt says he hates medications and thinks they are hurting him. Nursing concerned that patient is trying to check medication; will switch to Zydis 11/17 little less provocative towards peers but remains with florid paranoid and grandiose delusions. Last night patient initially refused his medications, but then later decided to take them. Today patient said he is trying to decide whether or not he should stop taking all the medications and challenge this short story writer in court or just continue taking medications, be in compliance and discharge.? He says he does not think the meds are working; does not think he needs them... 11/18: Continue current tx plan. Sheet Rock Taper Helper has concerns that patient is not taking medication as prescribed.? He consistently says things like he does not like them, thinks they are bad for him, does not want them.? Nursing concerned that patient trying to cheek his medication, prompting short story writer to change Zyprexa to oral disintegrating tablet Zydis, which is much more quickly bioavailable.? Also his lithium level on 11/17 is subtherapeutic at 0.31 And it is lower than it was when patient was taking a lower dose of lithium measured on 11/03 (0.46)implying that patient has been avoiding taking this medication consistently. Pt taking total daily Del Aire dose of 900mg. Del Aire level 0.46 on 11/03/22 Pt taking total daily Del Aire dose of 1200mg. Del Aire level 0.31 on 11/17/22 At this point short story writer still does not know if these medications can be effective as it seems likely patient is not adhering with regimen; this also makes it hard to know if they should be titrated (given risk of lithium toxicity). And Even while he's getting some amount of medication in him, he remains with florid paranoid, persecutory and grandiose delusions and mistakenly thinks others are conspiring and threatening to harm him. Patient has little to no insight into his psychiatric illness.? Sheet Rock Taper Helper has no reason to believe that patient will continue taking medications on discharge; almost daily, he expresses his belief that the medications are bad for him and he does not need them...and, it's questionable that he's fully taking them even now, despite having 24/ supervision and redirection from trained staff.? If patient to discharge at this time, he would remain unsafe in the community. 11/21 patient less agitated and provocative on the unit, more calm. He does not bring up paranoid delusional thinking unless it is solicited. That said, patient remains with paranoid and grandiose delusions. And short story writer thinks it is unlikely that patient will continue medications once discharged. Concern is that current medication regimen seems able to calm down the chauncey, and perhaps taken edge off some of the moment to moment paranoid thinking, however they do not seem to resolve the paranoid/grandiose delusions. 2/1 less manic; less intrusive to others; still delusional but not expressing as much 2/2 dc morning Zydis since pt may remain at current stability at total daily dose of 30mg and once a day dosing will help encourage continued adherence post discharge; will also dc vitamins as pt is eating well and again, to lessen pill- taking burden in effort to enhance adherence 2/3 expresses improved insight, sharing his consideration that beliefs may have been dreams and current ambivalence regarding if beliefs are delusional vs true. That said, in the past, pt once admitted to short story writer that he fooled short story writer by pretending to no longer believe his delusional thoughts, saying they delusions....only since he knew that was what short story writer wanted to hear. It's possible that pt is ambivalent and also that if he remains on meds, insight will improve -currently pt is no longer perceiving threats from peers and he's no longer intrusive; not talking about delusional thoughts to others; he's sleeping and eating well; taking his meds; if he remains at current level of stability will consider dc home as mother feels ok about his discharge. He refuses to try clozapine which would be main reason to keep him longer. 11/26/22: no changes 2/6 patient decompensated, and is again expressing feeling threatened on the unit by peers and going on about paranoid, grandiose delusions; possibly due to Zyprexa being lowered to 30 mg, down from 40 mg; patient however also revealed that last week he was just telling short story writer what short story writer wanted to hear. Regardless, patient has regressed back to being unable to contain paranoid delusions. Patient at 1st refused any medication changes demanding discharge or court. Later patient changed his mind and said he is willing to stay longer intake clozapine. Despite taking medications which her delivered to him by staff, patient's symptoms have worsened and Patient is again mistakenly accusing others of making violent threats towards him; he is again confrontational. Currently patient requires staff supervision 14/05 to help with redirection and to avert conflict with peers. Patient is also checked every 15 minutes. At this time there is no less restrictive setting for patient. He has no insight at all and has almost daily said he does not want medication or treatment and does not think he needs it. The only time he says he will take it is and a written statement saying that he will be adherent with his medication as it pertains to him being allowed to discharge. Sheet Rock Taper Helper has no reason to believe patient will continue taking medications in the community. Furthermore in the community patient is without trained staff present 24 hours a day to help patient avoid conflict with others. Patient is accusatory and willing to confront people he delusionally perceives is threatening and risks being harmed in the community. 11/28 starting clozapine 25 mg; will titrate; will cross taper Zyprexa as clinically indicated 11/29 continue tx 11/30 continue titration of clozapine; patient denies any new experiences of threats from peers 12/02 patient continues with clozapine; overall more calm on the unit. 12/03 will leave Clozapine bedtime dose at 100mg given lightheadedness this am 12/04 says he will stop sending letters Sherwin Merlos; increasing Clozapine 12/05 maybe some side effects from clozapine; will hold tonight's dose, di scontinue the morning dose and leave bedtime dose at 125 mg starting 12/06. Is hard to say if patient has improved much since starting clozapine. The fact that he says he will no longer write letters to Francesco Merlos is possibly progress; he has also been overall more calm and peaceful on the unit, not feeling threatened by anyone. He remains without insight. 12/06 still has delusional thoughts (grandiose but no longer w/ paranoia) but is more able to compartmentalize them and operate w/out being as influenced by them; no paranoid thoughts about peers, others. More calm, pleasant and able to joke appropriately with others.? 12/07 ambivalence about need for medications and whether alternative therapies might work; influenced by his mothers perspective; short story writer has discussed patients need for medication with his mother numerous times and how alternative/diet therapy will likely result in complete return of chauncey and delusions. Sheet Rock Taper Helper provided education to patient how going off medications will result in return of symptoms and very likely return to hospital; pt thanked short story writer for education and will continue to consider staying on meds -that said, pt remains in good mood, congenial w/ staff and peers, sleeping well, eating well, no paranoia. If patient remains stable, will likely dc next week.? 12/08 pt remains stable. On current regimen, he remains w/ grandiose delusions but much more able to compartmentalize them and avoid being overly influenced by them; they are not expressed unless pt is probed to do so and even then, he is hesitant to discuss; his interactions w/ staff and peers are appropriate. He remains vulnerable to decompenstation as his insight is limited and he remains ambivalent about his needs for meds, but he is not in imminent risk for harm to self or others. Patient had minor side-effect from titration of clozapine so leaving it at 125mg for now. He has outpt providers who know him and at this time, he is appropriate to continue treatment in the community. will proceed w/ discharge planning Plan: Petition court for involuntary commitment and medication; currently continuance Q 15 minute checks Clozapine 125mg qhs, Continue Zydis 30mg qhs Continue lithium ER 1200mg qhs (this does was subtherapeutic but said nauseus at higher dose); BUN creatinine, TSH, lytes within normal limits ANC weekly ANC checked and within normal limits; patient registered in clozapine rems program add melatonin (at pt's request) DC Ambien; pt does not like (did help sleep however) Dc trazodone; patient says seems to have activated him DC ZYDIS 10 mg daily Changed to Cogentin 0.5 mg PRN (not sure if dystonic reaction was from Haldol received in the ED or from Geodon or just combination, but has not returned) dc omeprazole; pt says only had couple days of gerd and does not think needs it In the past, these meds partially stabilized manic behaviors but did not resolve delusions: -Depakote ER 250 mg in the morning and 1000 mg q.h.s. -Risperdal 4 mg -Geodon: not effective Med trial Zyprexa: ?partially helpful Patient educated on: diagnosis and medication risk/benefits Informed Consent: understands, does not understand and further education needed Reason for contiued inpatient stay Substantial Risk for: stable for discharge Time Spent With Patient Time: Total time managing care of this patient today ____ minutes.
[2022-12-08] MEDS: OLANZapine ODT 10 MG TAB.RAPDIS 30 MG TRANSLINGU (19:41)
[2022-12-08] MEDS: Lithium Carbonate 300 MG CAPSULE 1200 MG PO (19:41)
[2022-12-08] MEDS: cloZAPine 100 MG TABLET PO (19:42)
[2022-12-08] MEDS: cloZAPine 25 MG TABLET PO (19:42)
[2022-12-08] MEDS: Melatonin 3 MG TABLET PO (19:42)
[2022-12-09 06:00] VITALS: BP 108/70; PULSE 115; RESP 14; TEMP 36.9; O2SAT 98
--- NOTE | 2022-12-09 10:27 | HO.PSYCHPN ---
Subjective Subjective Date of Service: 12/09/22 Reason For Visit: chauncey Subjective Notes: Conditional Voluntary Healthcare Proxy: No Guardianship: No Medical Problems Affecting Mental Status: No Interim History: Patient was seen and discussed in rounds today. Records and plans were reviewed. He has been mostly pleasant and cooperative. He is compliant with his treatment regimen and medications. He does appear to be improved. He is safe on the unit. He is mostly isolative. He is looking forward to discharge, possibly on 12/11. No changes were made today Medication Compliance: Yes Side effects from medications: No Attending Groups: Yes Diagnostics Vital Signs (24Hr): Vital Signs - 24 hr 12/08/22 16:37 12/09/22 06:00 Temperature 98.5 F Pulse Rate 102 H 115 H Respiratory Rate 14 Blood Pressure 138/84 108/70 Pulse Oximetry 98 Oxygen Delivery Method Room Air BMI result Body Mass Index 23.6 Labs 11/28/22 10:59 11/08/22 08:34 Medications Medications Current Medications Acetaminophen (Acetaminophen 325 Mg Tablet) 650 mg PO Q6H PRN PRN Reason: Headache/Pain Mild Scale (1-3) Last Admin: 11/26/22 19:51 Dose: 650 mg Al Hydroxide/Mg Hydroxide (Magnesium Hydrox/Alum Hydrox 30 Ml Oral.Susp) 30 ml PO Q6H PRN PRN Reason: Heartburn/Nausea Last Admin: 12/03/22 12:23 Dose: 30 ml Benztropine Mesylate (Benztropine Mesylate 0.5 Mg Tablet) 0.5 mg PO TID PRN PRN Reason: Extrapyramidal Effects Chlorpromazine HCl (Chlorpromazine Hcl 25 Mg Tablet) 50 mg PO Q4H PRN PRN Reason: anxiety/agitation Last Admin: 12/01/22 09:43 Dose: 50 mg Clonazepam (Clonazepam 0.5 Mg Tablet) 0.5 mg PO BEDTIME PRN PRN Reason: insomnia Last Admin: 12/04/22 19:48 Dose: 0.5 mg Clozapine (Clozapine 100 Mg Tablet) 100 mg PO BEDTIME VIC Last Admin: 12/08/22 19:42 Dose: 100 mg Clozapine (Clozapine 25 Mg Tablet) 25 mg PO BEDTIME VIC Last Admin: 12/08/22 19:42 Dose: 25 mg Famotidine (Famotidine 20 Mg Tablet) 20 mg PO BID PRN PRN Reason: gerd Dufur Carbonate (Dufur Carbonate 300 Mg Capsule) 1,200 mg PO BEDTIME VIC Last Admin: 12/08/22 19:41 Dose: 1,200 mg Magnesium Hydroxide (Milk Of Magnesia 30 Ml Oral.Susp) 30 ml PO DAILY PRN PRN Reason: Constipation Melatonin (Melatonin 3 Mg Tablet) 3 mg PO BEDTIME VIC Last Admin: 12/08/22 19:42 Dose: 3 mg Melatonin (Melatonin 3 Mg Tablet) 3 mg PO BEDTIME PRN PRN Reason: continued insomnia Last Admin: 12/03/22 20:39 Dose: 3 mg Nicotine Polacrilex (Nicotine Polacrilex 2 Mg Gum) 4 mg BUCCAL Q2H PRN PRN Reason: Nicotine Cravings Last Admin: 11/24/22 17:22 Dose: 4 mg Olanzapine (Olanzapine Odt 10 Mg Tab.Rapdis) 30 mg TRANSLINGU BEDTIME VIC Last Admin: 12/08/22 19:41 Dose: 30 mg Allergies Allergies Allergy/AdvReac Type Severity Reaction Status Date / Time No Known Allergies Allergy Verified 02/22/22 16:29 Assessment & Plan Assessment & Plan (1) Schizoaffective disorder, bipolar type: Status: Acute Code(s): F25.0 - Schizoaffective disorder, bipolar type (2) Chronic post-traumatic stress disorder (PTSD): Status: Acute Code(s): F43.12 - Post-traumatic stress disorder, chronic (3) Alcohol abuse: Status: Acute Code(s): F10.10 - Alcohol abuse, uncomplicated Plan Patient is a 22-year-old male with history of bipolar disorder type 1, alcohol abuse/dependence, PTSD discharged from 05/04/2022 and here for his 3rd inpatient admission in less than 1 year,, who Self presents for paranoid ideations that he is being followed by people who want to harm him in the face of having gone off his medication this past summer and relapsing with alcohol.? In the ED patient disrobing, disorganized; received Haldol for p.r.n. received Haldol as a p.r.n. -patient has history of severe manic episodes with significant psychotic features and extensive delusional beliefs that render him unable to function.? Patient also has PTSD and seems to frequently looked alcohol as a coping strategy.? On medication symptoms significantly decrease but it has never been clear whether patient has insight 10/30 patient remains with odd behavior; he is guarded and does not reveal much; remains internally preoccupied 10/31 patient psychotic with paranoid delusions.? Major Account Representative reassess is diagnosis and sees that patient has psychotic symptoms even when not? manic and will change diagnosis to schizoaffective.? Patient says it is okay for com writer to adjust medications and that he will take whatever com writer thinks past 11/01 remains with severe paranoid delusions 11/02 patient sleeping and hypomanic; remains with intense paranoid delusions including feeling that there are peers on the unit conspiring to intimidate him; patient does agree that he seems to run into trouble when he stops taking his medications, however no insight into psychiatric illness 11/03 paranoid delusions and manic behaviors persist; patient is paranoid making accusations against multiple peers thinking there conspiring against him.? Patient has no insight.? Labs returned today showing subtherapeutic lithium dose so will increase.? Patient put in another 3 day.? However he remains paranoid and accusatory to other peers, provoking them and at this time is unsafe to return to the community 11/04 remains with paranoid delusions;?Discussed case with nursing; met with patient; reviewed vitals and tachycardic 11/05 no change; continues to have paranoid and delusional thoughts; unwanted approaches to other peers on the unit who are afraid of him due to his behaviors.? Continues to insist that multiple people on the unit and in the community have plans to harm him and that he is afraid.? At this time com writer is concerned for his safety.? Dufur dose recently increased and needs time to become therapeutic.? Will continue to assess. 11/06 patient remains with severe paranoid and grandiose delusions; he thinks that peers are conspiring against him and says he is afraid for his safety; remains without any insight.? Says he does not want to take Geodon or lithium.? Patient is accusatory and sometimes aggressively posturing towards staff and peers.? Patient is at risk for inciting pre-emptive or retaliatory aggression from others he is accusing and challenging.? Major Account Representative and team agreed that patient is not safe for discharge to the community.? Discussed with team who agree that while sometimes patients chauncey can be addressed with medication, medications have yet to significantly erode paranoid delusions; however patient is not open to medication changes at this time. 11/07 severe, paranoid persecutory delusions, just during provoking to others whom he delusionally believes are conspiring against him.? Refused medications last night, though took them today. 11/08 remains with paranoid delusions, but did sleep last night. Agrees to trial of Zyprexa (will go with this med since some partial response in past and may have gotten dystonia from typical antipsychotic in ED) 11/13 remains with paranoid delusions, grandiose, or provocative towards peers whom he believes are conspiring against him. 11/14 remains with paranoid delusions, thinks people on the unit are trying to kill him. 11/15 no reduction in symptoms; will increase total daily Zyprexa dose to 40 mg.? 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 Clozapine remains the preferred medication however patient currently refuses.? Some concern for dystonic reaction from Haldol received in the emergency room;? will consider alternative 1st generation antipsychotics as well. -patient's mother is worried about vitamin-D and vitamin B deficiency; while these are rare and even less likely to have a clinical significance, will order lab work as patient agrees. 11/16 pt opening up about hx of trauma; unable to make connection with current paranoid delusion. Pt says he hates medications and thinks they are hurting him. Nursing concerned that patient is trying to check medication; will switch to Zydis 11/17 little less provocative towards peers but remains with florid paranoid and grandiose delusions. Last night patient initially refused his medications, but then later decided to take them. Today patient said he is trying to decide whether or not he should stop taking all the medications and challenge this com writer in court or just continue taking medications, be in compliance and discharge.? He says he does not think the meds are working; does not think he needs them... 11/18: Continue current tx plan. Major Account Representative has concerns that patient is not taking medication as prescribed.? He consistently says things like he does not like them, thinks they are bad for him, does not want them.? Nursing concerned that patient trying to cheek his medication, prompting com writer to change Zyprexa to oral disintegrating tablet Zydis, which is much more quickly bioavailable.? Also his lithium level on 11/17 is subtherapeutic at 0.31 And it is lower than it was when patient was taking a lower dose of lithium measured on 11/03 (0.46)implying that patient has been avoiding taking this medication consistently. Pt taking total daily Dufur dose of 900mg. Dufur level 0.46 on 11/03/22 Pt taking total daily Dufur dose of 1200mg. Dufur level 0.31 on 11/17/22 At this point com writer still does not know if these medications can be effective as it seems likely patient is not adhering with regimen; this also makes it hard to know if they should be titrated (given risk of lithium toxicity). And Even while he's getting some amount of medication in him, he remains with florid paranoid, persecutory and grandiose delusions and mistakenly thinks others are conspiring and threatening to harm him. Patient has little to no insight into his psychiatric illness.? Major Account Representative has no reason to believe that patient will continue taking medications on discharge; almost daily, he expresses his belief that the medications are bad for him and he does not need them...and, it's questionable that he's fully taking them even now, despite having 24/ supervision and redirection from trained staff.? If patient to discharge at this time, he would remain unsafe in the community. 11/21 patient less agitated and provocative on the unit, more calm. He does not bring up paranoid delusional thinking unless it is solicited. That said, patient remains with paranoid and grandiose delusions. And com writer thinks it is unlikely that patient will continue medications once discharged. Concern is that current medication regimen seems able to calm down the chauncey, and perhaps taken edge off some of the moment to moment paranoid thinking, however they do not seem to resolve the paranoid/grandiose delusions. 2/ less manic; less intrusive to others; still delusional but not expressing as much 2/2 dc morning Zydis since pt may remain at current stability at total daily dose of 30mg and once a day dosing will help encourage continued adherence post discharge; will also dc vitamins as pt is eating well and again, to lessen pill-taking burden in effort to enhance adherence 2/3 expresses improved insight, sharing his consideration that beliefs may have been dreams and current ambivalence regarding if beliefs are delusional vs true. That said, in the past, pt once admitted to com writer that he fooled com writer by pretending to no longer believe his delusional thoughts, saying they delusions....only since he knew that was what com writer wanted to hear. It's possible that pt is ambivalent and also that if he remains on meds, insight will improve -currently pt is no longer perceiving threats from peers and he's no longer intrusive; not talking about delusional thoughts to others; he's sleeping and eating well; taking his meds; if he remains at current level of stability will consider dc home as mother feels ok about his discharge. He refuses to try clozapine which would be main reason to keep him longer. 11/26/22: no changes 2/6 patient decompensated, and is again expressing feeling threatened on the unit by peers and going on about paranoid, grandiose delusions; possibly due to Zyprexa being lowered to 30 mg, down from 40 mg; patient however also revealed that last week he was just telling com writer what com writer wanted to hear. Regardless, patient has regressed back to being unable to contain paranoid delusions. Patient at 1st refused any medication changes demanding discharge or court. Later patient changed his mind and said he is willing to stay longer intake clozapine. Despite taking medications which her delivered to him by staff, patient's symptoms have worsened and Patient is again mistakenly accusing others of making violent threats towards him; he is again confrontational. Currently patient requires staff supervision 14/05 to help with redirection and to avert conflict with peers. Patient is also checked every 15 minutes. At this time there is no less restrictive setting for patient. He has no insight at all and has almost daily said he does not want medication or treatment and does not think he needs it. The only time he says he will take it is and a written statement saying that he will be adherent with his medication as it pertains to him being allowed to discharge. Major Account Representative has no reason to believe patient will continue taking medications in the community. Furthermore in the community patient is without trained staff present 24 hours a day to help patient avoid conflict with others. Patient is accusatory and willing to confront people he delusionally perceives is threatening and risks being harmed in the community. 11/28 starting clozapine 25 mg; will titrate; will cross taper Zyprexa as clinically indicated 11/29 continue tx 11/30 continue titration of clozapine; patient denies any new experiences of threats from peers 12/02 patient continues with clozapine; overall more calm on the unit. 12/03 will leave Clozapine bedtime dose at 100mg given lightheadedness this am 12/04 says he will stop sending letters Sherwin Merlos; increasing Clozapine 12/05 maybe some side effects from clozapine; will hold tonight's dose, discontinue the morning dose and leave bedtime dose at 125 mg starting 12/06. Is hard to say if patient has improved much since starting clozapine. The fact that he says he will no longer write letters to Francesco Merlos is possibly progress; he has also been overall more calm and peaceful on the unit, not feeling threatened by anyone. He remains without insight. 12/06 still has delusional thoughts (grandiose but no longer w/ paranoia) but is more able to compartmentalize them and operate w/out being as influenced by them; no paranoid thoughts about peers, others. More calm, pleasant and able to joke appropriately with others.? 12/07 ambivalence about need for medications and whether alternative therapies might work; influenced by his mothers perspective; com writer has discussed patients need for medication with his mother numerous times and how alternative/diet therapy will likely result in complete return of chauncey and delusions. Major Account Representative provided education to patient how going off medications will result in return of symptoms and very likely return to hospital; pt thanked com writer for education and will continue to consider staying on meds -that said, pt remains in good mood, congenial w/ staff and peers, sleeping well, eating well, no paranoia. If patient remains stable, will likely dc next week.? 12/08 pt remains stable. On current regimen, he remains w/ grandiose delusions but much more able to compartmentalize them and avoid being overly influenced by them; they are not expressed unless pt is probed to do so and even then, he is hesitant to discuss; his interactions w/ staff and peers are appropriate. He remains vulnerable to decompenstation as his insight is limited and he remains ambivalent about his needs for meds, but he is not in imminent risk for harm to self or others. Patient had minor side-effect from titration of clozapine so leaving it at 125mg for now. He has outpt providers who know him and at this time, he is appropriate to continue treatment in the community. will proceed w/ discharge planning 12/09: Continue current regimen and plans, possible discharge next week Plan: Petition court for involuntary commitment and medication; currently continuance Q 15 minute checks Clozapine 125mg qhs, Continue Zydis 30mg qhs Continue lithium ER 1200mg qhs (this does was subtherapeutic but said nauseus at higher dose); BUN creatinine, TSH, lytes within normal limits ANC weekly ANC checked and within normal limits; patient registered in clozapine rems program add melatonin (at pt's request) DC Ambien; pt does not like (did help sleep however) Dc trazodone; patient says seems to have activated him DC ZYDIS 10 mg daily Changed to Cogentin 0.5 mg PRN (not sure if dystonic reaction was from Haldol received in the ED or from Geodon or just combination, but has not returned) dc omeprazole; pt says only had couple days of gerd and does not think needs it In the past, these meds partially stabilized manic behaviors but did not resolve delusions: -Depakote ER 250 mg in the morning and 1000 mg q.h.s. -Risperdal 4 mg -Geodon: not effective Med trial Zyprexa: ?partially helpful Reason for contiued inpatient stay Substantial Risk for: med/psych decompensation Time Spent With Patient Time: Total time managing care of this patient today ____ minutes.
[2022-12-09 15:53] VITALS: BP 134/73; PULSE 120; RESP 16; TEMP 37.3; O2SAT 98
[2022-12-09] MEDS: Acetaminophen 325 MG TABLET 650 MG PO (16:47)
[2022-12-09] MEDS: Lithium Carbonate 300 MG CAPSULE 1200 MG PO (19:39)
[2022-12-09] MEDS: cloZAPine 25 MG TABLET PO (19:39)
[2022-12-09] MEDS: Melatonin 3 MG TABLET PO (19:40)
[2022-12-09] MEDS: cloZAPine 100 MG TABLET PO (19:40)
[2022-12-09] MEDS: OLANZapine ODT 10 MG TAB.RAPDIS 30 MG TRANSLINGU (19:40)
[2022-12-10] MEDS: Acetaminophen 325 MG TABLET 650 MG PO ×3 (03:45→16:07)
[2022-12-10 06:00] VITALS: BP 114/65; PULSE 104; RESP 14; TEMP 36.8; O2SAT 98
--- NOTE | 2022-12-10 08:29 | P.PNPSI_ITS ---
Subjective Subjective Date of Service: 12/09/22 Reason For Visit: chauncey Subjective Notes: Conditional Voluntary Healthcare Proxy: No Guardianship: No Medical Problems Affecting Mental Status: No Interim History: Patient was seen and discussed in rounds today. Records and plans were reviewed. He is doing very well and is getting ready for discharge tomorrow which was previously planned. He is eating and sleeping adequately. No SI. No complaints or side effects. No changes were made today Medication Compliance: Yes Side effects from medications: No Attending Groups: Yes Review of Systems Review of Systems Yes all other systems are reviewed and are negative Diagnostics Vital Signs (24Hr): Vital Signs - 24 hr 12/09/22 15:53 12/10/22 06:00 Temperature 99.2 F 98.2 F Pulse Rate 120 H 104 H Respiratory Rate 16 14 Blood Pressure 134/73 114/65 Pulse Oximetry 98 98 Oxygen Delivery Method Room Air Room Air BMI result Body Mass Index 23.6 Labs 11/28/22 10:59 11/08/22 08:34 Medications Medications Current Medications Acetaminophen (Acetaminophen 325 Mg Tablet) 650 mg PO Q6H PRN PRN Reason: Headache/Pain Mild Scale (1-3) Last Admin: 12/10/22 03:45 Dose: 650 mg Al Hydroxide/Mg Hydroxide (Magnesium Hydrox/Alum Hydrox 30 Ml Oral.Susp) 30 ml PO Q6H PRN PRN Reason: Heartburn/Nausea Last Admin: 12/03/22 12:23 Dose: 30 ml Benztropine Mesylate (Benztropine Mesylate 0.5 Mg Tablet) 0.5 mg PO TID PRN PRN Reason: Extrapyramidal Effects Chlorpromazine HCl (Chlorpromazine Hcl 25 Mg Tablet) 50 mg PO Q4H PRN PRN Reason: anxiety/agitation Last Admin: 12/01/22 09:43 Dose: 50 mg Clonazepam (Clonazepam 0.5 Mg Tablet) 0.5 mg PO BEDTIME PRN PRN Reason: insomnia Last Admin: 12/04/22 19:48 Dose: 0.5 mg Clozapine (Clozapine 100 Mg Tablet) 100 mg PO BEDTIME VIC Last Admin: 12/09/22 19:40 Dose: 100 mg Clozapine (Clozapine 25 Mg Tablet) 25 mg PO BEDTIME VIC Last Admin: 12/09/22 19:39 Dose: 25 mg Famotidine (Famotidine 20 Mg Tablet) 20 mg PO BID PRN PRN Reason: gerd [place] Carbonate ([place] Carbonate 300 Mg Capsule) 1,200 mg PO BEDTIME VIC Last Admin: 12/09/22 19:39 Dose: 1,200 mg Magnesium Hydroxide (Milk Of Magnesia 30 Ml Oral.Susp) 30 ml PO DAILY PRN PRN Reason: Constipation Melatonin (Melatonin 3 Mg Tablet) 3 mg PO BEDTIME VIC Last Admin: 12/09/22 19:40 Dose: 3 mg Melatonin (Melatonin 3 Mg Tablet) 3 mg PO BEDTIME PRN PRN Reason: continued insomnia Last Admin: 12/03/22 20:39 Dose: 3 mg Nicotine Polacrilex (Nicotine Polacrilex 2 Mg Gum) 4 mg BUCCAL Q2H PRN PRN Reason: Nicotine Cravings Last Admin: 11/24/22 17:22 Dose: 4 mg Olanzapine (Olanzapine Odt 10 Mg Tab.Rapdis) 30 mg TRANSLINGU BEDTIME VIC Last Admin: 12/09/22 19:40 Dose: 30 mg Allergies Allergies Allergy/AdvReac Type Severity Reaction Status Date / Time No Known Allergies Allergy Verified 02/22/22 16:29 Assessment & Plan Assessment & Plan (1) Schizoaffective disorder, bipolar type: Status: Acute Code(s): F25.0 - Schizoaffective disorder, bipolar type (2) Chronic post-traumatic stress disorder (PTSD): Status: Acute Code(s): F43.12 - Post-traumatic stress disorder, chronic (3) Alcohol abuse: Status: Acute Code(s): F10.10 - Alcohol abuse, uncomplicated Plan Patient is a 22-year-old male with history of bipolar disorder type 1, alcohol abuse/dependence, PTSD discharged from 05/04/2022 and here for his 3rd inpatient admission in less than 1 year,, who Self presents for paranoid ideations that he is being followed by people who want to harm him in the face of having gone off his medication this past summer and relapsing with alcohol.? In the ED patient disrobing, disorganized; received Haldol for p.r.n. received Haldol as a p.r.n. -patient has history of severe manic episodes with significant psychotic features and extensive delusional beliefs that render him unable to function.? Patient also has PTSD and seems to frequently looked alcohol as a coping strategy.? On medication symptoms significantly decrease but it has never been clear whether patient has insight 10/30 patient remains with odd behavior; he is guarded and does not reveal much; remains internally preoccupied 10/31 patient psychotic with paranoid delusions.? Sie[employer] C[employer] Developer reassess is diagnosis and sees that patient has psychotic symptoms even when not? manic and will change diagnosis to schizoaffective.? Patient says it is okay for commercial real estate underwriter to adjust medications and that he will take whatever commercial real estate underwriter thinks past 11/01 remains with severe paranoid delusions 11/02 patient sleeping and hypomanic; remains with intense paranoid delusions i ncluding feeling that there are peers on the unit conspiring to intimidate him; patient does agree that he seems to run into trouble when he stops taking his medications, however no insight into psychiatric illness 11/03 paranoid delusions and manic behaviors persist; patient is paranoid making accusations against multiple peers thinking there conspiring against him.? Patient has no insight.? Labs returned today showing subtherapeutic lithium dose so will increase.? Patient put in another 3 day.? However he remains paranoid and accusatory to other peers, provoking them and at this time is unsafe to return to the community 11/04 remains with paranoid delusions;?Discussed case with nursing; met with patient; reviewed vitals and tachycardic 11/05 no change; continues to have paranoid and delusional thoughts; unwanted approaches to other peers on the unit who are afraid of him due to his behavi ors.? Continues to insist that multiple people on the unit and in the community have plans to harm him and that he is afraid.? At this time commercial real estate underwriter is concerned for his safety.? [place] dose recently increased and needs time to become therapeutic.? Will continue to assess. 11/06 patient remains with severe paranoid and grandiose delusions; he thinks that peers are conspiring against him and says he is afraid for his safety; remains without any insight.? Says he does not want to take Geodon or lithium.? Patient is accusatory and sometimes aggressively posturing towards staff and peers.? Patient is at risk for inciting pre-emptive or retaliatory aggression from others he is accusing and challenging.? [employer] C[employer] Developer and team agreed that patient is not safe for discharge to the community.? Discussed with team who agree that while sometimes patients chauncey can be addressed with medication, medications h ave yet to significantly erode paranoid delusions; however patient is not open to medication changes at this time. 11/07 severe, paranoid persecutory delusions, just during provoking to others whom he delusionally believes are conspiring against him.? Refused medications last night, though took them today. 11/08 remains with paranoid delusions, but did sleep last night. Agrees to trial of Zyprexa (will go with this med since some partial response in past and may have gotten dystonia from typical antipsychotic in ED) 11/13 remains with paranoid delusions, grandiose, or provocative towards peers wh om he believes are conspiring against him. 11/14 remains with paranoid delusions, thinks people on the unit are trying to kill him. 11/15 no reduction in symptoms; will increase total daily Zyprexa dose to 40 mg.? Literature shows that typically if an antipsychotic is going to work manager terminal for a person, it affords some reduction in symptoms early on even within a day or two; if patient's psychotic symptoms do not improve soon, will conclude that Zyprexa is not effective.? Clozapine remains the preferred medication however patient currently refuses.? Some concern for dystonic reaction from Haldol received in the emergency room;? will consider alternative 1st generation antipsychotics as well. -patient's mother is worried about vitamin-D and vitamin B deficiency; while these are rare and even less likely to have a clinical significance, will order lab work as patient agrees. 11/16 pt opening up about hx of trauma; unable to make connection with current paranoid delusion. Pt says he hates medications and thinks they are hurting him. Nursing concerned that patient is trying to check medication; will switch to Zydis 11/17 little less provocative towards peers but remains with florid paranoid and grandiose delusions. Last night patient initially refused his medications, but then later decided to take them. Today patient said he is trying to decide whether or not he should stop taking a ll the medications and challenge this commercial real estate underwriter in court or just continue taking medications, be in compliance and discharge.? He says he does not think the meds are working; does not think he needs them... 11/18: Continue current tx plan. Sie[employer] C[employer] Developer has concerns that patient is not taking medication as prescribed.? He consistently says things like he does not like them, thinks they are bad for him, does not want them.? Nursing concerned that patient trying to cheek his medication, prompting commercial real estate underwriter to change Zyprexa to oral disintegrating tablet Zydis, which is much more quickly bioavailable.? Also his lithium level on 11/17 is subtherapeutic at 0.31 And it is lower than it was when patient was taking a lower dose of lithium measured on 11/03 (0.46)implying that patient has been avoiding taking this medication consistently. Pt taking total daily [place] dose of 900mg. [place] level 0.46 on 11/03/22 Pt taking total daily [place] dose of 1200mg. [place] level 0.31 on 11/17/22 At this point commercial real estate underwriter still does not know if these medications can be effective as it seems likely patient is not adhering with regimen; this also makes it hard to know if they should be titrated (given risk of lithium toxicity). And Even while he's getting some amount of medication in him, he remains with florid paranoid, persecutory and grandiose delusions and mistakenly thinks others are conspiring and threatening to harm him. Patient has little to no insight into his psychiatric illness.? Siebel C[employer] Developer has no reason to believe that patient will continue taking medications on discharge; almost daily, he expresses his belief that the medications are bad for him and he does not need them...and, it's questionable that he's fully taking them even now, despite having / supervision and redirection from trained staff.? If patient to discharge at this time, he would remain unsafe in the community. 11/21 patient less agitated and provocative on the unit, more calm. He does not bring up paranoid delusional thinking unless it is solicited. That said, patient remains with paranoid and grandiose delusions. And commercial real estate underwriter thinks it is unlikely that patient will continue medications once discharged. Concern is that current medication regimen seems able to calm down the chauncey, and perhaps taken edge off some of the moment to moment paranoid thinking, however they do not seem to resolve the paranoid/grandiose delusions. 11/22 less manic; less intrusive to others; still delusional but not expressing as much 2/2 dc morning Zydis since pt may remain at current stability at total daily dose of 30mg and once a day dosing will help encourage continued adherence post discharge; will also dc vitamins as pt is eating well and again, to lessen pill- taking burden in effort to enhance adherence 2/3 expresses improved insight, sharing his consideration that beliefs may have been dreams and current ambivalence regarding if beliefs are delusional vs true. That said, in the past, pt once admitted to commercial real estate underwriter that he fooled commercial real estate underwriter by pretending to no longer believe his delusional thoughts, saying they delusions....only since he knew that was what commercial real estate underwriter wanted to hear. It's possible that pt is ambivalent and also that if he remains on meds, insight will improve -currently pt is no longer perceiving threats from peers and he's no longer intrusive; not talking about delusional thoughts to others; he's sleeping and eating well; taking his meds; if he remains at current level of stability will consider dc home as mother feels ok about his discharge. He refuses to try clozapine which would be main reason to keep him longer. 11/26/22: no changes 2/6 patient decompensated, and is again expressing feeling threatened on the unit by peers and going on about paranoid, grandiose delusions; possibly due to Zyprexa being lowered to 30 mg, down from 40 mg; patient however also revealed that last week he was just telling commercial real estate underwriter what commercial real estate underwriter wanted to hear. Regardless, patient has regressed back to being unable to contain paranoid delusions. Patient at 1st refused any medication changes demanding discharge or court. Later patient changed his mind and said he is willing to stay longer intake clozapine. Despite taking medications which her delivered to him by staff, patient's symptoms have worsened and Patient is again mistakenly accusing others of making violent threats towards him; he is again confrontational. Currently patient requires staff supervision 14/05 to help with redirection and to avert conflict with peers. Patient is also checked every 15 minutes. At this time there is no less restrictive setting for patient. He has no insight at all and has almost daily said he does not want medication or treatment and does not think he needs it. The only time he says he will take it is and a written statement saying that he will be adherent with his medication as it pertains to him being allowed to discharge. Siebel Crm Developer has no reason to believe patient will continue taking medications in the community. Furthermore in the community patient is without trained staff present 24 hours a day to help pat ient avoid conflict with others. Patient is accusatory and willing to confront people he delusionally perceives is threatening and risks being harmed in the community. 11/28 starting clozapine 25 mg; will titrate; will cross taper Zyprexa as clinically indicated 11/29 continue tx 11/30 continue titration of clozapine; patient denies any new experiences of threats from peers 12/02 patient continues with clozapine; overall more calm on the unit. 12/03 will leave Clozapine bedtime dose at 100mg given lightheadedness this am 12/04 says he will stop sending letters Sherwin Merlos; increasing Clozapine 12/05 maybe some side effects from clozapine; will hold tonight's dose, discontinue the morning dose and leave bedtime dose at 125 mg starting 12/06. Is hard to say if patient has improved much since starting clozapine. The fact that he says he will no longer write letters to Francesco Merlos is possibly progress; he has also been overall more calm and peaceful on the unit, not feeling threatened by anyone. He remains without insight. 12/06 still has delusional thoughts (grandiose but no longer w/ paranoia) but is more able to compartmentalize them and operate w/out being as influenced by them; no paranoid thoughts about peers, others. More calm, pleasant and able to joke appropriately with others.? 12/07 ambivalence about need for medications and whether alternative therapies might work; influenced by his mothers perspective; commercial real estate underwriter has discussed patients need for medication with his mother numerous times and how alternative/diet therapy will likely result in complete return of chauncey and delusions. Siebel Crm Developer provided education to patient how going off medications will result in return of symptoms and very likely return to hospital; pt thanked commercial real estate underwriter for education and will continue to consider staying on meds -that said, pt remains in good mood, congenial w/ staff and peers, sleeping well, eating well, no paranoia. If patient remains stable, will likely dc next week.? 12/08 pt remains stable. On current regimen, he remains w/ grandiose delusions but much more able to compartmentalize them and avoid being overly influenced by them; they are not expressed unless pt is probed to do so and even then, he is hesitant to discuss; his interactions w/ staff and peers are appropriate. He remains vulnerable to decompenstation as his insight is limited and he remains ambivalent about his needs for meds, but he is not in imminent risk for harm to self or others. Patient had minor side-effect from titration of clozapine so leaving it at 125mg for now. He has outpt providers who know him and at this time, he is appropriate to continue treatment in the community. will proceed w/ discharge planning 12/09: Continue current regimen and plans, possible discharge next week 12/10: Continue current plans and regimen and possible discharge tomorrow as planned Plan: Petition court for involuntary commitment and medication; currently continuance Q 15 minute checks Clozapine 125mg qhs, Continue Zydis 30mg qhs Continue lithium ER 1200mg qhs (this does was subtherapeutic but said nauseus at higher dose); BUN creatinine, TSH, lytes within normal limits ANC weekly ANC checked and within normal limits; patient registered in clozapine rems program add melatonin (at pt's request) DC Ambien; pt does not like (did help sleep however) Dc trazodone; patient says seems to have activated him DC ZYDIS 10 mg daily Changed to Cogentin 0.5 mg PRN (not sure if dystonic reaction was from Haldol received in the ED or from Geodon or just combination, but has not returned) dc omeprazole; pt says only had couple days of gerd and does not think needs it In the past, these meds partially stabilized manic behaviors but did not resolve delusions: -Depakote ER 250 mg in the morning and 1000 mg q.h.s. -Risperdal 4 mg -Geodon: not effective Med trial Zyprexa: ?partially helpful Reason for contiued inpatient stay Substantial Risk for: med/psych decompensation Time Spent With Patient Time: Total time managing care of this patient today ____ minutes.
--- NOTE | 2022-12-10 16:08 | PC.NURSE ---
PT complaining of neck pain 01/29 that was treated this morning with acetaminophen 650mg. PT requesting another PRN dose for the same pain. Offered Cogentin in case of EPS, pt refused stating I know it's not that .
[2022-12-10 19:34] VITALS: BP 141/75; PULSE 118; RESP 16; TEMP 36.4
[2022-12-10] MEDS: Lithium Carbonate 300 MG CAPSULE 1200 MG PO (19:37)
[2022-12-10] MEDS: Melatonin 3 MG TABLET PO (19:37)
[2022-12-10] MEDS: cloZAPine 25 MG TABLET PO (19:38)
[2022-12-10] MEDS: cloZAPine 100 MG TABLET PO (19:38)
[2022-12-10] MEDS: OLANZapine ODT 10 MG TAB.RAPDIS 30 MG TRANSLINGU (19:38)
[2022-12-11] MEDS: Acetaminophen 325 MG TABLET 650 MG PO (03:40)
[2022-12-11 08:30] LABS: Neut%MD 74.1 %; WBCANC 8.1 X10*3/uL
[2022-12-11 09:35] VITALS: BP 130/76; PULSE 122; RESP 16; TEMP 36.9; O2SAT 99
--- NOTE | 2022-12-11 21:41 | P.DS_ITS ---
DS: Providers Provider Date of Service: 12/11/22 Date of admission: 10/28/22 11:37 Date of discharge: 12/11/22 Primary care physician: Unknown Physician Attending physician on admission: Albino Miranda Attending physician on discharge: Albino Miranda DS: Diagnosis Discharge Diagnosis (1) Schizoaffective disorder, bipolar type: Status: Acute (2) Chronic post-traumatic stress disorder (PTSD): Status: Acute (3) Alcohol abuse: Status: Acute DS: Medications Discharge Medications Home Medications: Previous Rx's Medication Instructions Recorded clozapine 100 mg tablet 100 mg PO BEDTIME 30 days #30 tabs 12/10/22 clozapine 25 mg tablet 25 mg PO BEDTIME 30 days #30 tabs 12/10/22 lithium carbonate 600 mg capsule 1,200 mg PO BEDTIME 30 days #60 12/10/22 caps melatonin 3 mg tablet 3 mg PO BEDTIME PRN continued 12/10/22 insomnia #0 tabs melatonin 3 mg tablet 3 mg PO BEDTIME PRN sleep 30 days 12/10/22 #30 tabs olanzapine 15 mg tablet (Zyprexa) 30 mg PO BEDTIME 30 days #60 tabs 12/10/22 Mental Status Exam Mental Status Exam Narrative: Pt is alert and oriented; behavior is cooperative, calm, friendly; dressed in casual attire with long, combed hair, glasses; with adequate hygiene; mood is described good and affect is congruent, more calm and relaxed; sometimes anxious; eye contact appropriate; Speech is normal rate, volume; normal prosody; not pressured; no psychomotor agitation present; thought process is goal directed; Thought content is with paranoid delusions and grandiose thoughts but not expressing unless asked; able to be pertinent to relevant topics discussed; denies any SI/HI. Denies AVH; Patients insight and judgment are impaired but improved. Data Data Completed and Pending Completed studies during hospitalization [Text1]: 12/05/22 12/07/22 12/09/22 07:57 14:12 14:54 Absolute Neuts (auto) 3.6 Clozapine Pending Pending Norclozapine Pending Pending DS: Summary Hospital Course Hospital Course: HPI: Patient is a 22-year-old male with history of bipolar disorder type 1, alcohol abuse/dependence, PTSD discharged from 05/04/2022 and here for his 3rd inpatient admission in less than 1 year,, who Self presents for paranoid ideations that he is being followed by people who want to harm him in the face of having gone off his medication this past summer and relapsing with alcohol.? In the ED patient disrobing, disorganized; received Haldol for p.r.n. received Haldol as a p.r.n. -patient has history of severe manic episodes with significant psychotic features and extensive delusional beliefs that render him unable to function.? Patient also has PTSD and seems to frequently looked alcohol as a coping strategy.? On medication symptoms significantly decrease but it has never been clear whether patient has insight Hospital course: Admission, patient was with severe paranoid and grandiose delusions for much of his admission. Lupe resolved with lithium however his paranoid delusions remained and affected his ability to function; he was consistently fearful that patient's were conspiring against him and in his misguided response, incited retaliatory aggression from others by accusing and challenging peers; he also remained with grandiose beliefs about aliens and his role in a cosmetic stahl. Zyprexa helped some however did not resolve paranoid delusions, but only took the edge off his interactions. Patient never developed insight however with the encouragement of his litigation attorney associate, agreed to remain on the unit and try clozapine. Patient has paranoid delusions never resolved however ostensibly with the addition of clozapine, they did significantly decrease in their influence over his day-to-day interactions. His grandiose delusions quietly continued, but the paranoid thoughts significantly decreased and he was much more able to compartmentalize these delusions and avoid being overly influenced by them, only expressing them if inquired. Patient's insight remained limited; he understood he has bipolar disorder and can get manic, however continued to believe delusions were true. Patient said he would continue medications on discharge, however there were several times he leaked out that his willingness to do so was ambivalent at best (contributing to this ambivalence was his supportive, well- meaning mother who remained curious about dietary causes and remedies for his p sychiatric illness). That said, patient no longer felt fearful of peers and his demeanor returned to his regular buoyant and affable self; he was cooperative and remained appropriate with peers and staff, demonstrating good behavioral and impulse control throughout the remainder of his time on the unit. Patient requested discharge and the agreed court continuance had come due. Soccer Ball Assembler discussed case with team and outpatient psychiatrist and it is agreed that patient will very likely remained chronically vulnerable to decompensation and/or relapse with alcohol; however this vulnerability will not resolve with a longer inpatient stay and patient is not in imminent risk for harm to self or others and does not rise to the level of involuntary commitment. Patient's request for discharge honored. In the past, these meds partially stabilized manic behaviors but did not resolve delusions: -Depakote ER 250 mg in the morning and 1000 mg q.h.s. -Risperdal 4 mg -Geodon: not effective -Haldol: possible dystonic reaction Time spent discussing smoking cessation with patient: 3 to 10 minutes Status at Discharge Functional status at discharge: independent ambulation Overall status at discharge: patient is progressing back to baseline Time Spent with Patient Time attestation: Total time managing care of this patient today ____ minutes. Time spent: Less than 30 minutes Discharge Plan Discharge Anticipated Discharge Date/Time: 12/11/22 11:00 Patient Disposition: Home, Self-Care Discharge Diagnosis: Schizoaffective disorder, bipolar type in partial remission Referrals: Therapy: Raúl Grimes ([facility]) [Other] - 12/12/22 1:00 pm (Appointment is in person at the office ) Psychiatrist: Dr. Marlene Amador ([facility]) [Other] - 01/08/23 2:00 pm Discharge Medications: New clozapine 100 mg Tablet 100 mg PO BEDTIME 30 Days Qty: 30 1RF Rx Instructions: take with 25mg tab clozapine 25 mg Tablet 25 mg PO BEDTIME 30 Days Qty: 30 1RF Rx Instructions: take with 100mg tab melatonin 3 mg Tablet 3 mg PO BEDTIME PRN (Reason: continued insomnia) Qty: 0 0RF melatonin 3 mg Tablet 3 mg PO BEDTIME PRN (Reason: sleep) 30 Days Qty: 30 1RF olanzapine [Zyprexa] 15 mg tablet 30 mg PO BEDTIME 30 Days Qty: 60 1RF Changed lithium carbonate 600 mg capsule 1,200 mg PO BEDTIME 30 Days Qty: 60 1RF Discontinued lithium carbonate 300 mg Tablet 300 mg PO BID 30 Days Qty: 60 1RF Rx Instructions: take 1 capsule in morning and 1 capsule at bedtime (with the 600mg cap) ziprasidone HCl 80 mg capsule 80 mg PO BID Rx Instructions: take 1 WITH breakfast and 1 WITH dinner Discharge Orders: Discharge Order (Routine); Ordered 12/11/22 Ordered By: Albino Miranda Diet: Regular diet Activity on Discharge: As tolerated Stand Alone Forms: Patient Portal Discharge page, Community Support Other Ambulatory Orders: Absolute Neutrophil Count (QWEEK) Timeframe: 20221219 Facility: [facility] - Location: Laboratory Ordered By: Albino Miranda Absolute Neutrophil Count (QWEEK) Timeframe: 20221226 Facility: [facility] - Location: Laboratory Ordered By: Albino Miranda Absolute Neutrophil Count (QWEEK) Timeframe: 20230102 Facility: [facility] - Location: Laboratory Ordered By: Albino Miranda Absolute Neutrophil Count (QWEEK) Timeframe: 20230109 Facility: [facility] - Location: Laboratory Ordered By: Albino Miranda Absolute Neutrophil Count (QWEEK) Timeframe: 20230116 Facility: [facility] - Location: Laboratory Ordered By: Albino Miranda Care Plan Goals: Maintain mood and safe behaviors Take medications as prescribed Continue to pursue sobriety Practice coping skills Continue with outpatient providers and reach out to them as needed Health Concerns: Mood stability and behaviors Sobriety Plan of Treatment: Follow up with your Psychiatric provider and other outpatient providers regarding above concerns Take medications as prescribed Assessment: Risk assessment at time of discharge:? Patient was interviewed prior to discharge and found to be fully oriented and without any SI or HI. Patient has insight and demonstrates good judgment in terms of wanting to pursue treatment. Patient is not in imminent risk of harm to self or others and has a safety plan that includes presenting to the closest ER or calling 911 if feeling unsafe.? Patient has been observed closely by nursing and unit staff throughout admission; patient has not engaged in any behaviors that suggest dangerousness to self or others and has demonstrated appropriate behaviors and impulse control Discharge Date/Time: 12/11/22 11:49
[2022-12-13 08:54] LABS: Clozapine (Clozaril) 89 mcg/L; Norclozapine 84 mcg/L (25-400)
[2022-12-13 17:38] LABS: Clozapine (Clozaril) 124 mcg/L; Norclozapine 92 mcg/L (25-400)
== END 2022-12-11 11:49 | disposition home or self-care (01) | DRG 750 ==
LOC: HO.ED 10-28 06:30 → HO.PM5 10-28 11:41
PROVIDERS: Emergency Medicine; Admitting Provider Psychiatry & Neurology Psychiatry; Emergency Provider Emergency Medicine Emergency Medical Services; Visit Provider Psychiatry & Neurology Psychiatry
DX: F25.0 Schizoaffective disorder, bipolar type (principal); F10.10 Alcohol abuse, uncomplicated; F43.12 Post-traumatic stress disorder, chronic; Z20.822 Contact with and (suspected) exposure to COVID-19; Z79.899 Other long term (current) drug therapy
CPT/HCPCS: 36415; 80051; 80053; 80061; 80159; 80178; 80307; 82077; 82565; 83036; 84207; 84425; 84443; 84520; 85025; 85048; 87635; 93005; 99285; S9485

== ENCOUNTER 2023-03-10 05:08 | Inpatient (IN) | payer MEDICAID, OTHER, SELFPAY ==
[2023-03-10 05:12] VITALS: BP 134/88; PULSE 92; RESP 16; TEMP 37; O2SAT 97; BMI 23.0
[2023-03-10 05:33] LABS: MANUAL DIFF FLAG NO
[2023-03-10 05:34] LABS: Basophils Percent Auto 0.5 % (0-2); Eosinophils Percent Auto 0.2 % (0-4); Hematocrit 42.4 % (42.0-52.0); Imm Gran Abs Auto 0.02 X10*3/uL (0.00-0.03); Imm Gran Pct Auto 0.3 % (0.0-0.4); Lymphocytes Absolute Auto 1.3 X10*3/uL (1.2-4.9); Lymphocytes Percent Auto 19.6 % (20-40); Mean Corpuscular Hemoglobin 28.5 pg (27.0-33.0); Mean Corpuscular Volume 86.4 fL (80.0-98.0); Mean Platelet Volume 9.9 fL (9.4-12.4); Monocytes Absolute Auto 0.8 X10*3/uL (0.1-1.2); Monocytes Percent Auto 11.9 % (2-11); Neutrophils Absolute Auto 4.5 x10*3/uL (2.0-8.3); Neutrophils Percent Auto 67.5 % (45-73); Platelet Count 362 X10*3/uL (160-400); Red Blood Count 4.91 X10*6/uL (4.60-5.80); Red Cell Distribution Width 12.9 % (11.0-16.0); White Blood Count 6.6 X10*3/uL (4.8-10.8)
[2023-03-10 05:45] LABS: Amphetamine Screen Urine Not Detected (Not Detect); Barbiturates, Urine Not Detected (Not Detect); Benzodiazepines Screen Urine Not Detected (Not Detect); Cannabinoid Screen Urine POSITIVE (Not Detect); Cocaine Screen Urine Not Detected (Not Detect); Fentanyl, urine Not Detected (Not Detect); Opiate Screen Urine Not Detected (Not Detect); Phencyclidine Screen Urine Not Detected (Not Detect)
[2023-03-10 05:45] LABS: COVID-19 Test Negative (Negative); IDNOW Serial# 6674DD1D
[2023-03-10 05:49] LABS: Lithium < 0.10 mmol/L (0.60-1.20)
[2023-03-10 05:55] LABS: Alanine Aminotransferase 59 U/L (0-40); Albumin Level 5.1 g/dL (3.5-5.0); Alkaline Phosphatase 55 U/L (39-117); Anion Gap 17 (12-20); Aspartate Amino Transferase 41 U/L (5-37); Bilirubin Total 1.4 mg/dL (0.0-1.0); Blood Urea Nitrogen 9 mg/dL (9-16); Calcium 10.1 mg/dL (8.4-10.2); Carbon Dioxide 23 mmol/L (22-29); Chloride 104 mmol/L (96-108); Estimated Glomerular Filt Rate > 60; Ethanol < 10 mg/dL; Glucose Random 118 mg/dL (60-115); Potassium 3.6 mmol/L (3.3-5.1); Sodium 140 mmol/L (135-145); Total Protein 7.5 g/dL (6.5-8.0)
--- NOTE | 2023-03-10 06:26 | PC.NURSE ---
Patient currently in bed testing, patient is off his medication since 12/11/22 as evidenced by lithium level (0.10) and patient report admitting off his medication after discharge because it makes him better off medication, care consult ordered/pending evaluation, med rec completed/documented as off medication, thought content paranoid and blocking, will continue to monitor.
--- NOTE | 2023-03-10 06:41 | ED.PSYCH ---
HPI - Psych General Chief Complaint: Psychiatric Symptoms Stated Complaint: Crisis Time Seen by Provider: 03/10/23 05:19 History of Present Illness HPI Narrative: Patient is a 23-year-old male with a history of schizoaffective disorder presented today with having paranoia. Patient suspect the [employer] service is going after him. Patient denies any suicidal homicidal ideations. Baseline patient is on Clozaril, olanzapine. Patient has not been compliant with his medication. He was admitted to the hospital few months ago. Since discharge has not been taking his meds. No fever no chills no chest pain or shortness breath no nausea no vomiting. Patient is still withdrawn. Has no complaints. Related Data Home Medications Medication Instructions Recorded Confirmed No Known Home Meds 03/10/23 03/10/23 Allergies Allergy/AdvReac Type Severity Reaction Status Date / Time No Known Allergies Allergy Verified 02/22/22 16:29 Review of Systems Review of Systems: No fever no chills no chest pain Yes all other systems are reviewed and are negative [facility] Past Medical History Attestation statement: The following information was validated with the patient. Medical History Alcohol abuse Schizoaffective disorder, bipolar type Social History Social History Household Members: Family Housing: House Do you presently have visiting nurse or other home services: No Alcohol intake: never Patient Tobacco Use Status: Never used Tobacco Tobacco use type: Smokeless Tobacco e-Cigarette/Vaping Use: Currently Using Second Hand Smoke Exposure: No Substance Use Type: Marijuana Advance Directives: No Advance Directives Information Provided: Yes service: No Sexual orientation: Did not discuss Physical Exam Vital Signs: Vital Signs: Last Vital Signs Temp 98.6 F 03/10/23 05:12 Pulse 92 03/10/23 05:12 Resp 16 03/10/23 05:12 BP 134/88 03/10/23 05:12 Pulse Ox 97 03/10/23 05:12 O2 Del Method Room Air 03/10/23 05:12 BMI result Body Mass Index 23.0 Appearance: Alert. Oriented X3. No acute distress. Eyes: Pupils equal, round and reactive to light. ENT: Pharynx normal. Neck: Normal inspection. Neck supple. No lymph nodes noted. No crepitus CVS: Normal heart rate and rhythm. Pulses normal. Normal S1 and S2 Respiratory: No respiratory distress. Breath sounds normal. No Wheezing. No rales Abdomen: Soft and nontender. No rigidity. No distention. good BS x4 Skin: Skin warm and dry. Normal skin color. Normal skin turgor. Extremities: No lower extremity edema. Neurovascular intact to all extremities. No Lacerations. No Rash Neuro: Oriented X 3. No motor deficit. No sensory deficit. Moving all extermities. No slurred speech. Cranial nerves grossly intact Medical Decision Making Medical Decision Making [facility] Narrative: Well-appearing no acute distress. Patient have extreme paranoia. History of schizoaffective disorder. Not taking his medication. Will get crisis involved to evaluate patient. Labs are pending. Patient's tox screen positive for marijuana only. Her white count is normal. Hemoglobin is normal. Electrolytes unremarkable. Currently awaiting crisis evaluation Differential Diagnosis Differential Diagnoses: The differential diagnosis associated with the presentation includes Schizoaffective disorder, bipolar Admission/Observation Consideration of admission/observation: Escalation of care including admission/observation considered Lab Data 03/10/23 05:26 03/10/23 05:26 Labs: Lab Results 03/10/23 03/10/23 03/10/23 Range/Units 05:26 05:26 05:26 WBC 6.6 (4.8-10.8) X10*3/uL RBC 4.91 (4.60-5.80) X10*6/uL Hgb 14.0 (14.0-18.0) g/dl Hct 42.4 (42.0-52.0) % MCV 86.4 (80.0-98.0) fL MCH 28.5 (27.0-33.0) pg MCHC 33.0 (31.0-36.0) g/dl RDW 12.9 (11.0-16.0) % Plt Count 362 D (160-400) X10*3/uL MPV 9.9 (9.4-12.4) fL Immature Gran % (Auto) 0.3 (0.0-0.4) % Neut % (Auto) 67.5 (45-73) % Lymph % (Auto) 19.6 L (20-40) % [place] % (Auto) 11.9 H (2-11) % Eos % (Auto) 0.2 (0-4) % Baso % (Auto) 0.5 (0-2) % Lymph # (Auto) 1.3 (1.2-4.9) X10*3/uL [place] # (Auto) 0.8 (0.1-1.2) X10*3/uL Eos # (Auto) 0.0 (0.0-0.4) X10*3/uL Baso # (Auto) 0.0 (0.0-0.2) X10*3/uL Abs Immat Gran (auto) 0.02 (0.00-0.03) X10*3/uL Absolute Neuts (auto) 4.5 (2.0-8.3) x10*3/uL Absolute Nucleated RBC 0.000 (0.0-0.012) X10*3/uL Nucleated RBC % (auto) 0.0 (0.0-0.2) /100WBC Sodium 140 (135-145) mmol/L Potassium 3.6 (3.3-5.1) mmol/L Chloride 104 (96-108) mmol/L Carbon Dioxide 23 (22-29) mmol/L Anion Gap 17 (12-20) BUN 9 (9-16) mg/dL Creatinine 1.03 (0.5-1.4) mg/dL Estim Creat Clear Calc 116.0 Estimated GFR > 60 Random Glucose 118 H (60-115) mg/dL Calcium 10.1 (8.4-10.2) mg/dL Total Bilirubin 1.4 H (0.0-1.0) mg/dL AST 41 H (5-37) U/L ALT 59 H (0-40) U/L Alkaline Phosphatase 55 (39-117) U/L Total Protein 7.5 (6.5-8.0) g/dL Albumin 5.1 H (3.5-5.0) g/dL Urine Opiates Screen (Not Detect) Urine Fentanyl Screen (Not Detect) Ur Barbiturates Screen (Not Detect) Ur Phencyclidine Scrn (Not Detect) Ur Amphetamines Screen (Not Detect) U Benzodiazepines Scrn (Not Detect) [place] (0.60-1.20) mmol/L Urine Cocaine Screen (Not Detect) U Marijuana (THC) Screen (Not Detect) Ethyl Alcohol < 10 mg/dL COVID-19 (CATHERINE) Negative (Negative) COVID-19 Clin Com See Note 03/10/23 03/10/23 Range/Units 05:26 05:27 WBC (4.8-10.8) X10*3/uL RBC (4.60-5.80) X10*6/uL Hgb (14.0-18.0) g/dl Hct (42.0-52.0) % MCV (80.0-98.0) fL MCH (27.0-33.0) pg MCHC (31.0-36.0) g/dl RDW (11.0-16.0) % Plt Count (160-400) X10*3/uL MPV (9.4-12.4) fL Immature Gran % (Auto) (0.0-0.4) % Neut % (Auto) (45-73) % Lymph % (Auto) (20-40) % [place] % (Auto) (2-11) % Eos % (Auto) (0-4) % Baso % (Auto) (0-2) % Lymph # (Auto) (1.2-4.9) X10*3/uL [place] # (Auto) (0.1-1.2) X10*3/uL Eos # (Auto) (0.0-0.4) X10*3/uL Baso # (Auto) (0.0-0.2) X10*3/uL Abs Immat Gran (auto) (0.00-0.03) X10*3/uL Absolute Neuts (auto) (2.0-8.3) x10*3/uL Absolute Nucleated RBC (0.0-0.012) X10*3/uL Nucleated RBC % (auto) (0.0-0.2) /100WBC Sodium (135-145) mmol/L Potassium (3.3-5.1) mmol/L Chloride (96-108) mmol/L Carbon Dioxide (22-29) mmol/L Anion Gap (12-20) BUN (9-16) mg/dL Creatinine (0.5-1.4) mg/dL Estim Creat Clear Calc Estimated GFR Random Glucose (60-115) mg/dL Calcium (8.4-10.2) mg/dL Total Bilirubin (0.0-1.0) mg/dL AST (5-37) U/L ALT (0-40) U/L Alkaline Phosphatase (39-117) U/L Total Protein (6.5-8.0) g/dL Albumin (3.5-5.0) g/dL Urine Opiates Screen Not Detected (Not Detect) Urine Fentanyl Screen Not Detected (Not Detect) Ur Barbiturates Screen Not Detected (Not Detect) Ur Phencyclidine Scrn Not Detected (Not Detect) Ur Amphetamines Screen Not Detected (Not Detect) U Benzodiazepines Scrn Not Detected (Not Detect) [place] < 0.10 L (0.60-1.20) mmol/L Urine Cocaine Screen Not Detected (Not Detect) U Marijuana (THC) Screen POSITIVE H (Not Detect) Ethyl Alcohol mg/dL COVID-19 (CATHERINE) (Negative) COVID-19 Clin Com Discharge Plan Discharge Clinical Impression: Schizoaffective disorder, bipolar type Patient Disposition: Still a Patient Prescriptions: No Action No Known Home Meds Interventions: [place]-Suicide Risk Severity Scale Last Done: 03/10/23 06:23
--- NOTE | 2023-03-10 07:57 | PC.NURSE ---
Pt alert, and oriented to time. He reports having a Birthday recently. He says he is living with his Mother and Grandmother. He ate a small Breakfast. Expresses he has not slept much. He is having VH and AH. He is experiencing delusions. Thinks he just landed a job working for [employer]. He is excited, happy and pacing the hallway at this time.
--- NOTE | 2023-03-10 08:24 | PC.NURSE ---
Pt seems to be having periods of catatonia.
[2023-03-10] MEDS: diphenhydrAMINE HCL 25 MG CAPSULE 50 MG PO (09:36)
[2023-03-10] MEDS: LORazepam 1 MG TABLET 2 MG PO (09:37)
[2023-03-10] MEDS: HaloperidoL 5 MG TABLET 10 MG PO (09:37)
--- NOTE | 2023-03-10 13:22 | MHC.CARE ---
patient seen by CARE team for LOC assessment, determined inpatient psych unit. Pending placement.
--- NOTE | 2023-03-10 13:29 | ECG_ITS ---
Test Reason : CHECK PROLONG QT Blood Pressure : / mmHG Vent. Rate : 067 BPM Atrial Rate : 067 BPM P-R Int : 148 ms QRS Dur : 094 ms QT Int : 384 ms P-R-T Axes : -22 070 034 degrees QTc Int : 405 ms Sinus rhythm with marked sinus arrhythmia Otherwise normal ECG When compared with ECG of 02-NOV-2022 15:00, Nonspecific T wave abnormality now evident in Anterior leads Referred By: Bautista Parehk Electronically Signed By:Gio Juarez
--- NOTE | 2023-03-10 18:13 | PC.NURSE ---
Pt pending admittance to [facility] room [facility]. Report given to Yanni PARK.
--- NOTE | 2023-03-10 21:37 | PC.ADMIT ---
pt is a 23 year old male who presented to [facility] ED with [employer] from [place] [employer] for delusional thought. pt has been reportedly calling the police repeatedly and saying delusional statements. pt was PMH of inpatient hospitalizations, cannabis use, and bipolar disorder with delusional features. pt last hospitalization was on M5 in October 2022. pt signed a CV. during admission, pt signed legals, but appeared to stare into space having to be redirected during the process. pt appears to be thought blocking. pt has been talking to himself and saying some delusional statements. pt reports he showers to cope.
[2023-03-10] MEDS: Melatonin 3 MG TABLET PO (22:02)
[2023-03-11] MEDS: diphenhydrAMINE HCL 25 MG CAPSULE 50 MG PO ×2 (02:31→20:21)
[2023-03-11 06:00] VITALS: BP 131/72; PULSE 89; RESP 18
[2023-03-11 08:05] LABS: Cholesterol 156 mg/dL; HDL Cholesterol 47 mg/dL; LDL Cholesterol Calculated 94 mg/dl; Magnesium 2.2 mg/dL (1.6-2.6); Triglycerides 79 mg/dL
[2023-03-11] MEDS: Lithium Carbonate 300 MG CAPSULE PO ×2 (08:13→20:21)
[2023-03-11 08:30] LABS: Estimated Average Glucose 100 mg/dL; Hemoglobin A1c % 5.1 %
[2023-03-11 08:36] LABS: Folate 15.1 ng/mL (> or = 4.0); Free T4 (Free Thyroxine) 1.27 ng/dL (0.71-1.85); Thyroid Stimulating Hormone 0.78 uIU/mL (0.32-4.0); Vitamin B12 325 pg/mL (200-900)
[2023-03-11] MEDS: hydrOXYzine HCL 25 MG TABLET PO (12:08)
--- NOTE | 2023-03-11 17:11 | HO.PSYADMNOT ---
HPI Date of Service: 03/11/23 Chief Complaint: Schizoaffective disorder, bipolar type Sources of Information: patient interviewed, chart reviewed and crisis/core team assessment reviewed HPI Subjective Notes: [place] Warning and Conditional Voluntary Healthcare Proxy: No Guardianship: No Medical Problems Affecting Mental Status: No Narrative: 23 yo male, section 12 to ER with police for delusional and paranoid symptoms. Stopped Olanzapine and Clozapine 12/11/22 (no current REVS enrollment). He believes he was brought in by special agents of the [facility]. Family tells crisis increase in decompensation since his birthday-increase in showers, self-dialoguing. Denies SI/HI. Met tw at the door this a.m. we have to talk . Quiet, appropriate , tearful, depressed. I will take [place], that is it . Discussed not feeling respected during his last admission- I am not crazy. I don't want to have people treat me like I am, I want Dr. Miranda to have respect for me as a person, not a patient. I will give you all two weeks, because I care about you and I know all of you care about me, but that is it. Past Psychiatric History: Psychiatrically hospitalized January 2022 at [facility] Possibly psychiatric hospitalization february 2022 Some traumatic events in childhood relating to living with his father who is a combination of bipolar and antisocial. Patient has had several years in his 20's of trouble holding down a job with what seems to be relational conflicts with either peers or the boss. Some mild low level mormon preoccupation over the past 3 years in early but mother says nothing out of the ordinary and was only in December 2021 that his obsessive thinking and delusional ideas intensified and patient had manic symptoms. Med trials: Risperdal plus Depakote: No effect per patient (discharged on these 2 meds January 2022) Zyprexa: short trial; not sure effect Medical Evaluation Reviewed: Yes [facility] Medical History Alcohol abuse Schizoaffective disorder, bipolar type Family History: Father: bipolar/antisocial Social History: Did not graduate high school and only completed the 9th grade. He says he does did not fit in. In hindsight he realizes that he was being persecuted by aliens Was recently working in [place] at a [employer], staying at a friend's house Substance History: denies Trauma History: Childhood trauma from living with his father Diagnostics Vital Signs (24Hr): Vital Signs - 24 hr 03/11/23 06:00 Pulse Rate 89 Respiratory Rate 18 Blood Pressure 131/72 Oxygen Delivery Method Room Air BMI result Body Mass Index 23.0 Labs 03/10/23 05:26 03/10/23 05:26 Labs: Laboratory Results - last 48 hr 03/10/23 03/10/23 03/10/23 05:26 05:26 05:26 WBC 6.6 RBC 4.91 Hgb 14.0 Hct 42.4 MCV 86.4 MCH 28.5 MCHC 33.0 RDW 12.9 Plt Count 362 D MPV 9.9 Immature Gran % (Auto) 0.3 Neut % (Auto) 67.5 Lymph % (Auto) 19.6 L [place] % (Auto) 11.9 H Eos % (Auto) 0.2 Baso % (Auto) 0.5 Lymph # (Auto) 1.3 [place] # (Auto) 0.8 Eos # (Auto) 0.0 Baso # (Auto) 0.0 Abs Immat Gran (auto) 0.02 Absolute Neuts (auto) 4.5 Absolute Nucleated RBC 0.000 Nucleated RBC % (auto) 0.0 Sodium 140 Potassium 3.6 Chloride 104 Carbon Dioxide 23 Anion Gap 17 BUN 9 Creatinine 1.03 Estim Creat Clear Calc 116.0 Estimated GFR > 60 Random Glucose 118 H Estimat Average Glucose Hemoglobin A1c % Calcium 10.1 Magnesium Total Bilirubin 1.4 H AST 41 H ALT 59 H Alkaline Phosphatase 55 Total Protein 7.5 Albumin 5.1 H Triglycerides Cholesterol LDL Cholesterol, Calc HDL Cholesterol Vitamin B12 Folate TSH Free T4 Urine Opiates Screen Urine Fentanyl Screen Ur Barbiturates Screen Ur Phencyclidine Scrn Ur Amphetamines Screen U Benzodiazepines Scrn [place] Urine Cocaine Screen U Marijuana (THC) Screen Ethyl Alcohol < 10 COVID-19 (CATHERINE) Negative COVID-19 Clin Com See Note 03/10/23 03/10/23 03/11/23 05:26 05:27 07:15 WBC RBC Hgb Hct MCV MCH MCHC RDW Plt Count MPV Immature Gran % (Auto) Neut % (Auto) Lymph % (Auto) [place] % (Auto) Eos % (Auto) Baso % (Auto) Lymph # (Auto) [place] # (Auto) Eos # (Auto) Baso # (Auto) Abs Immat Gran (auto) Absolute Neuts (auto) Absolute Nucleated RBC Nucleated RBC % (auto) Sodium Potassium Chloride Carbon Dioxide Anion Gap BUN Creatinine Estim Creat Clear Calc Estimated GFR Random Glucose Estimat Average Glucose 100 Hemoglobin A1c % 5.1 Calcium Magnesium Total Bilirubin AST ALT Alkaline Phosphatase Total Protein Albumin Triglycerides Cholesterol LDL Cholesterol, Calc HDL Cholesterol Vitamin B12 Folate TSH Free T4 Urine Opiates Screen Not Detected Urine Fentanyl Screen Not Detected Ur Barbiturates Screen Not Detected Ur Phencyclidine Scrn Not Detected Ur Amphetamines Screen Not Detected U Benzodiazepines Scrn Not Detected [place] < 0.10 L Urine Cocaine Screen Not Detected U Marijuana (THC) Screen POSITIVE H Ethyl Alcohol COVID-19 ([facility]ATH[facility]INE) COVID-[facility] 03/11/23 07:15 WBC RBC Hgb Hct MCV MCH MCHC RDW Plt Count MPV Immature Gran % (Auto) Neut % (Auto) Lymph % (Auto) [place] % (Auto) Eos % (Auto) Baso % (Auto) Lymph # (Auto) [place] # (Auto) Eos # (Auto) Baso # (Auto) Abs Immat Gran (auto) Absolute Neuts (auto) Absolute Nucleated RBC Nucleated RBC % (auto) Sodium Potassium Chloride Carbon Dioxide Anion Gap BUN Creatinine Estim Creat Clear Calc Estimated GFR Random Glucose Estimat Average Glucose Hemoglobin A1c % Calcium Magnesium 2.2 Total Bilirubin AST ALT Alkaline Phosphatase Total Protein Albumin Triglycerides 79 Cholesterol 156 LDL Cholesterol, Calc 94 HDL Cholesterol 47 Vitamin B12 325 Folate 15.1 TSH 0.78 Free T4 1.27 Urine Opiates Screen Urine Fentanyl Screen Ur Barbiturates Screen Ur Phencyclidine Scrn Ur Amphetamines Screen U Benzodiazepines Scrn [place] Urine Cocaine Screen U Marijuana (THC) Screen Ethyl Alcohol COVID-19 (CATHERINE) COVID-19 [place] Meds/Allergies Meds Home Medications Medication Instructions Recorded Confirmed Type No Known Home Meds 03/10/23 03/10/23 History Allergies Allergies Allergy/AdvReac Type Severity Reaction Status Date / Time No Known Allergies Allergy Verified 02/22/22 16:29 Mental Status Exam Mental Status Exam Patient Appearance: Fatigued Patient Orientation: Person, Place, Time and Situation Level of Consciousness: Alert Patient Behavior: Talkative, Cooperative, Good Eye Contact and Crying Mood Description: Depressed Affect Description: Flat Patient Cognition Impaired: No Ability to Follow Directions: Good Speech Pattern: Spontaneous Speech Memory Description: Episodic Impaired Hallucinations: None Delusions: Being Controlled, Paranoid Ideation and Present Perceptual Disturbances: Depersonalization and Derealization Thought Process: Rumination Thought Content: positive for Circumstantial, positive for Perseveration and positive for Disorganized Depressive Symptoms: Thoughts of /Suicide (denies) Abnormal Motor Activity Signs and Symptoms: Restlessness Judgement: Poor Assessment & Plan Assessment & Plan (1) Schizoaffective disorder, bipolar type: Status: Acute Code(s): F25.0 - Schizoaffective disorder, bipolar type (2) Chronic post-traumatic stress disorder (PTSD): Status: Acute Code(s): F43.12 - Post-traumatic stress disorder, chronic Plan 23 yo male, history of schizoaffective disorder and PTSD, well known to M5, returns for admission with active symptoms after stopping medications in Nov 2022 after discharge. Pt experiencing return of psychotic sx, lability. States he is only willing to accept [place]. Plan: Re-establish alliance Encourage medications. Support, educate. Patient educated on: medication risk/benefits and therapeutic strategies Informed Consent: further education needed Reason for continued inpatient stay Substantial Risk for: rapid decompensation Statement Statement: I have reviewed the history and physical and performed a pertinent examination on my patient. No changes have occurred unless specified. If the History and Physical was not performed prior to admission, the Hospitalist's service will be consulted for completing the admission physical. Time Spent With Patient Time: Total time managing care of this patient today ____ minutes.
[2023-03-11 17:24] LABS: Appearance Urine Clear; Color Urine Yellow; Glucose Urine UA Negative (Negative); Leukocyte Esterase Urine Negative (Negative); Nitrite Urine Negative (Negative); Specific Gravity - Urine <= 1.005 (1.005-1.025); Urine Blood Negative (Negative); Urine Ketones Negative (Negative); Urine Protein Negative (Neg-Trace)
[2023-03-11 17:26] VITALS: BP 121/74; PULSE 93; TEMP 36.7; O2SAT 99
[2023-03-11 17:26] LABS: Bacteria Urine None Seen (None Seen); Hyaline Casts Urine 0-2 /LPF (0-2); RBC Urine 0-2 /HPF (0-2); Squamous Epithelial Cell Urine 0-2 /HPF (0-2); WBC Urine 0-5 /HPF (0-5)
[2023-03-11] MEDS: OLANZapine 10 MG TABLET 20 MG PO (20:21)
[2023-03-11] MEDS: Melatonin 3 MG TABLET PO (20:21)
[2023-03-12 08:19] VITALS: BP 134/73; PULSE 79; RESP 16; TEMP 37.4; O2SAT 98
[2023-03-12] MEDS: Lithium Carbonate 300 MG CAPSULE PO (09:03)
--- NOTE | 2023-03-12 10:09 | P.PNPSI_ITS ---
Subjective Subjective Date of Service: 03/12/23 Reason For Visit: Schizoaffective disorder, bipolar type Interim History: Met with patient; discussed with team Patient reports that he stopped taking his medications almost immediately on discharge. He went to 1 appointment but decided he did want medications anyway so quit going. Patient also said he got very busy on a big project that was taking all of his time... A writing projects; patient verifies that it is the same writing project with which he was engaged last admission dealing with his paranoid, grandiose delusional thoughts. Patient has been drinking about a six- pack a day Patient said that about 2 weeks ago his mental health started to decline. He says he was not sleeping well for the past several days. Patient is vague on the details but said he self presented knowing that he needed help. He also said You guys were right.. You said if I stopped taking my medications I would end up coming back to the hospital and here i am.... And that from now on he is going to continue taking his medications. He does not want clozapine saying it made him feel badly, physically. He is willing to take both lithium and Zyprexa. He denies any worries that anyone, including neighbors have thoughts of hurting him and his mother corroborates no dangerousness/no worries about harm. Mental Status Exam Mental Status Exam Narrative: Pt is alert and oriented; behavior is cooperative, calm, friendly; dressed in casual attire with long, combed hair, glasses; with adequate hygiene; mood is described having a hard time and affect is congruent; eye contact appropriate; Speech is normal rate, volume; normal prosody; not pressured; no psychomotor agitation present; thought process is goal directed; Thought content is with paranoid delusions and grandiose thoughts but not expressing unless asked; able to be pertinent to relevant topics discussed; denies any SI/HI. Denies AVH; Patients insight and judgment are impaired but close to baseline. Diagnostics Vital Signs (24Hr): Vital Signs - 24 hr 03/11/23 17:26 03/12/23 08:19 Temperature 98.1 F 99.4 F Pulse Rate 93 79 Respiratory Rate 16 Blood Pressure 121/74 134/73 Pulse Oximetry 99 98 Oxygen Delivery Method Room Air Room Air BMI result Body Mass Index 23.0 Labs 03/10/23 05:26 03/10/23 05:26 Labs: Laboratory Results - last 48 hr 03/11/23 03/11/23 03/11/23 07:15 07:15 17:15 Estimat Average Glucose 100 Hemoglobin A1c % 5.1 Magnesium 2.2 Triglycerides 79 Cholesterol 156 LDL Cholesterol, Calc 94 HDL Cholesterol 47 Vitamin B12 325 Folate 15.1 TSH 0.78 Free T4 1.27 Urine Color Yellow Urine Appearance Clear Urine pH 7.0 Ur Specific [place] <= 1.005 Urine Protein Negative Urine Glucose (UA) Negative Urine Ketones Negative Urine Blood Negative Urine Nitrite Negative Ur Leukocyte Esterase Negative Urine RBC 0-2 Urine WBC 0-5 Ur Squamous Epith Cells 0-2 Urine Bacteria None Seen Hyaline Casts 0-2 Medications Medications Current Medications Acetaminophen (Acetaminophen 325 Mg Tablet) 650 mg PO Q6H PRN PRN Reason: Headache/Pain Mild Scale (1-3) Al Hydroxide/Mg Hydroxide (Magnesium Hydrox/Alum Hydrox 30 Ml Oral.Susp) 30 ml PO Q6H PRN PRN Reason: Heartburn/Nausea Benztropine Mesylate (Benztropine Mesylate 0.5 Mg Tablet) 0.5 mg PO BID PRN PRN Reason: EPS Chlorpromazine HCl (Chlorpromazine Hcl 25 Mg Tablet) 50 mg PO Q4H PRN PRN Reason: psychosis Clonazepam (Clonazepam 0.5 Mg Tablet) 0.5 mg PO BEDTIME PRN PRN Reason: anxiety Diphenhydramine HCl (Diphenhydramine Hcl 25 Mg Capsule) 50 mg PO BEDTIME PRN PRN Reason: Insomnia Last Admin: 03/11/23 20:21 Dose: 50 mg Famotidine (Famotidine 20 Mg Tablet) 20 mg PO BID PRN PRN Reason: dyspepsia Hydroxyzine HCl (Hydroxyzine Hcl 25 Mg Tablet) 25 mg PO Q6H PRN PRN Reason: Anxiety Last Admin: 03/11/23 12:08 Dose: 25 mg [place] Carbonate ([place] Carbonate 300 Mg Capsule) 300 mg PO BID VIC Last Admin: 03/12/23 09:03 Dose: 300 mg Magnesium Hydroxide (Milk Of Magnesia 30 Ml Oral.Susp) 30 ml PO DAILY PRN PRN Reason: Constipation Melatonin (Melatonin 3 Mg Tablet) 3 mg PO BEDTIME PRN PRN Reason: insomnia Last Admin: 03/11/23 20:21 Dose: 3 mg Nicotine Polacrilex (Nicotine Polacrilex 2 Mg Gum) 4 mg BUCCAL Q2H PRN PRN Reason: Nicotine Cravings Olanzapine (Olanzapine 10 Mg Tablet) 20 mg PO BEDTIME VIC Last Admin: 03/11/23 20:21 Dose: 20 mg Trazodone HCl (Trazodone Hcl 50 Mg Tablet) 50 mg PO BEDTIME MRX1 PRN PRN Reason: Insomnia Allergies Allergies Allergy/AdvReac Type Severity Reaction Status Date / Time No Known Allergies Allergy Verified 02/22/22 16:29 Assessment & Plan Assessment & Plan (1) Schizoaffective disorder, bipolar type: Status: Acute Code(s): F25.0 - Schizoaffective disorder, bipolar type (2) Chronic post-traumatic stress disorder (PTSD): Status: Acute Code(s): F43.12 - Post-traumatic stress disorder, chronic Plan 23 yo male, history of schizoaffective disorder and PTSD, well known to M5, returns for admission with active symptoms after stopping medications in Nov 2022 after discharge. Pt experiencing return of psychotic sx, lability. States he is only willing to accept [place]. Hospital course: 03/12 patient with paranoid and grandiose delusions however able to keep them to himself. Agrees to take medication. Will increase lithium ER to 900 mg q.h.s., he was on 1200 mg at last admission; was going to increase Zyprexa to 30 mg however not sure if there was much difference from 20-30 mg so will keep it at 20 mg for now. Plan: CV q15 min checks Increase [place] ER to 900mg qhs (was on 1200 mg at last admission) Zyprexa 20 mg; will consider increasing as he was on 30 mg last time he was here, however not sure how much difference the extra 10 mg made Re-establish alliance Encourage medications. Support, educate. Patient educated on: diagnosis, medication risk/benefits and substance abuse Informed Consent: understands Reason for continued inpatient stay Substantial Risk for: rapid decompensation Time Spent With Patient Time: Total time managing care of this patient today ____ minutes.
[2023-03-12] MEDS: OLANZapine 10 MG TABLET 20 MG PO (20:48)
[2023-03-12] MEDS: Lithium Carbonate 300 MG CAPSULE 600 MG PO (20:48)
[2023-03-12] MEDS: Melatonin 3 MG TABLET PO (20:49)
[2023-03-12 21:30] VITALS: BP 128/76; PULSE 84; TEMP 36.3
[2023-03-12] MEDS: clonazePAM 0.5 MG TABLET PO (22:26)
[2023-03-12] MEDS: diphenhydrAMINE HCL 25 MG CAPSULE 50 MG PO (22:26)
[2023-03-12] MEDS: hydrOXYzine HCL 25 MG TABLET PO (23:04)
[2023-03-12] MEDS: traZODone HCL 50 MG TABLET PO (23:04)
[2023-03-13] MEDS: traZODone HCL 50 MG TABLET PO ×2 (00:31→21:24)
[2023-03-13 06:00] VITALS: BP 121/64; PULSE 77; RESP 16; TEMP 37; O2SAT 96
--- NOTE | 2023-03-13 10:22 | P.PNPSI_ITS ---
Subjective Subjective Date of Service: 03/13/23 Reason For Visit: Schizoaffective disorder, bipolar type Interim History: Met with patient; discussed with team Patient reports he is sleeping well. He says he is feeling better. 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 Patient however says that feeling better would be to feel more grounded and less consumed by this project which he thinks the medications are complicating. Patient said that he hopes to return home soon. Mental Status Exam Mental Status Exam Narrative: Pt is alert and oriented; behavior is cooperative, calm, friendly; dressed in casual attire with long, combed hair, glasses; with adequate hygiene; mood is described good and affect is congruent, brighter, calm; eye contact appropriate; Speech is normal rate, volume; normal prosody; not pressured; no psychomotor agitation present; thought process is goal directed; Thought content is with delusions and grandiose thoughts but not expressing unless asked; able to be pertinent to relevant topics discussed; denies any SI/HI. Denies AVH; Patients insight and judgment are impaired but at baseline. Diagnostics Vital Signs (24Hr): Vital Signs - 24 hr 03/12/23 21:30 Temperature 97.4 F Pulse Rate 84 Blood Pressure 128/76 BMI result Body Mass Index 23.0 Labs 03/10/23 05:26 03/10/23 05:26 Labs: Laboratory Results - last 48 hr 03/11/23 17:15 Urine Color Yellow Urine Appearance Clear Urine pH 7.0 Ur Specific [place] <= 1.005 Urine Protein Negative Urine Glucose (UA) Negative Urine Ketones Negative Urine Blood Negative Urine Nitrite Negative Ur Leukocyte Esterase Negative Urine RBC 0-2 Urine WBC 0-5 Ur Squamous Epith Cells 0-2 Urine Bacteria None Seen Hyaline Casts 0-2 Medications Medications Current Medications Acetaminophen (Acetaminophen 325 Mg Tablet) 650 mg PO Q6H PRN PRN Reason: Headache/Pain Mild Scale (1-3) Al Hydroxide/Mg Hydroxide (Magnesium Hydrox/Alum Hydrox 30 Ml Oral.Susp) 30 ml PO Q6H PRN PRN Reason: Heartburn/Nausea Benztropine Mesylate (Benztropine Mesylate 0.5 Mg Tablet) 0.5 mg PO BID PRN PRN Reason: EPS Chlorpromazine HCl (Chlorpromazine Hcl 25 Mg Tablet) 50 mg PO Q4H PRN PRN Reason: psychosis Clonazepam (Clonazepam 0.5 Mg Tablet) 0.5 mg PO BEDTIME PRN PRN Reason: anxiety Last Admin: 03/12/23 22:26 Dose: 0.5 mg Diphenhydramine HCl (Diphenhydramine Hcl 25 Mg Capsule) 50 mg PO BEDTIME PRN PRN Reason: Insomnia Last Admin: 03/12/23 22:26 Dose: 50 mg Famotidine (Famotidine 20 Mg Tablet) 20 mg PO BID PRN PRN Reason: dyspepsia Hydroxyzine HCl (Hydroxyzine Hcl 25 Mg Tablet) 25 mg PO Q6H PRN PRN Reason: Anxiety Last Admin: 03/12/23 23:04 Dose: 25 mg [place] Carbonate ([place] Carbonate Er 450 Mg Tablet.Er) 900 mg PO BEDTIME VIC Magnesium Hydroxide (Milk Of Magnesia 30 Ml Oral.Susp) 30 ml PO DAILY PRN PRN Reason: Constipation Melatonin (Melatonin 3 Mg Tablet) 3 mg PO BEDTIME PRN PRN Reason: insomnia Last Admin: 03/12/23 20:49 Dose: 3 mg Nicotine Polacrilex (Nicotine Polacrilex 2 Mg Gum) 4 mg BUCCAL Q2H PRN PRN Reason: Nicotine Cravings Olanzapine (Olanzapine 10 Mg Tablet) 20 mg PO BEDTIME VIC Last Admin: 03/12/23 20:48 Dose: 20 mg Trazodone HCl (Trazodone Hcl 50 Mg Tablet) 50 mg PO BEDTIME MRX1 PRN PRN Reason: Insomnia Last Admin: 03/13/23 00:31 Dose: 50 mg Allergies Allergies Allergy/AdvReac Type Severity Reaction Status Date / Time No Known Allergies Allergy Verified 02/22/22 16:29 Assessment & Plan Assessment & Plan (1) Schizoaffective disorder, bipolar type: Status: Acute Code(s): F25.0 - Schizoaffective disorder, bipolar type (2) Chronic post-traumatic stress disorder (PTSD): Status: Acute Code(s): F43.12 - Post-traumatic stress disorder, chronic Plan 23 yo male, history of schizoaffective disorder and PTSD, well known to alisa Mcbride for admission with active symptoms after stopping medications in Nov 2022 after discharge. Pt experiencing return of psychotic sx, lability. States he is only willing to accept [place]. Hospital course: 03/12 patient with paranoid and grandiose delusions however able to keep them to himself. Agrees to take medication. Will increase lithium ER to 900 mg q.h.s., he was on 1200 mg at last admission; was going to increase Zyprexa to 30 mg however not sure if there was much difference from 20-30 mg so will keep it at 20 mg for now. 03/13 patient remains with delusional content however the bothersome part of it seems to be resolving. Patient is friendly, calm and appropriate with peers and staff, demonstrating good behavioral do impulse control. Sleeping through the night. Tolerating medications. Will leave medication doses as they are and get levels; If patient remains stable will proceed with discharge plans. fur floor worker talked with patient's mother who feels good about him coming home soon. Plan: CV q15 min checks Continue [place] ER to 900mg qhs (was on 1200 mg at last admission) Zyprexa 20 mg; will consider increasing as he was on 30 mg last time he was here, however not sure how much difference the extra 10 mg made Will order lithium level and associated labs Re-establish alliance Encourage medications. Support, educate. Patient educated on: diagnosis and medication risk/benefits Informed Consent: understands, does not understand and further education needed Reason for continued inpatient stay Substantial Risk for: rapid decompensation Time Spent With Patient Time: Total time managing care of this patient today ____ minutes.
[2023-03-13 18:00] VITALS: BP 132/87; PULSE 108; RESP 18; TEMP 36.5; O2SAT 99
[2023-03-13] MEDS: diphenhydrAMINE HCL 25 MG CAPSULE 50 MG PO (21:22)
[2023-03-13] MEDS: OLANZapine 10 MG TABLET 20 MG PO (21:22)
[2023-03-13] MEDS: Lithium Carbonate ER 450 MG TABLET.ER 900 MG PO (21:23)
[2023-03-13] MEDS: clonazePAM 0.5 MG TABLET PO (21:24)
[2023-03-14 08:18] LABS: Lithium 0.44 mmol/L (0.60-1.20)
--- NOTE | 2023-03-14 10:01 | P.PNPSI_ITS ---
Subjective Subjective Date of Service: 03/14/23 Reason For Visit: Schizoaffective disorder, bipolar type Interim History: Met with patient; discussed with team Patient remains in good behavioral and impulse control, getting along with peers and staff. 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 Discussed alcoholism and patient says he drinks about 12 beers a day saying that he purposely minimized it earlier. He denies ever having withdrawal symptoms. 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 He says he never wants to stop drinking, does not want any other substitute for dealing with the stress and does not think it is a problem; typewriter assembly and parts inspector discussed the complications and medical problems alcoholism can cause however patient is unconcerned.. That said, he reports that since he has been on the unit he has not thought about beer or having a drink at all. Mental Status Exam Mental Status Exam Narrative: Pt is alert and oriented; behavior is cooperative, calm, friendly; dressed in casual attire with long, combed hair, glasses; with adequate hygiene; mood is described calm and content and affect is congruent, brighter, calm; eye contact appropriate; Speech is normal rate, volume; normal prosody; not pressured; no psychomotor agitation present; thought process is goal directed; Thought content is with paranoid delusions and grandiose thoughts but not expressing unless asked; able to be pertinent to relevant topics discussed; denies any SI/HI. Denies AVH; Patients insight and judgment are impaired but at baseline. Diagnostics Vital Signs (24Hr): Vital Signs - 24 hr 03/13/23 18:00 Temperature 97.7 F Pulse Rate 108 H Respiratory Rate 18 Blood Pressure 132/87 Pulse Oximetry 99 Oxygen Delivery Method Room Air BMI result Body Mass Index 23.0 Labs 03/10/23 05:26 03/10/23 05:26 Labs: Laboratory Results - last 48 hr 03/14/23 07:53 [place] 0.44 L Medications Medications Current Medications Acetaminophen (Acetaminophen 325 Mg Tablet) 650 mg PO Q6H PRN PRN Reason: Headache/Pain Mild Scale (1-3) Al Hydroxide/Mg Hydroxide (Magnesium Hydrox/Alum Hydrox 30 Ml Oral.Susp) 30 ml PO Q6H PRN PRN Reason: Heartburn/Nausea Benztropine Mesylate (Benztropine Mesylate 0.5 Mg Tablet) 0.5 mg PO BID PRN PRN Reason: EPS Chlorpromazine HCl (Chlorpromazine Hcl 25 Mg Tablet) 50 mg PO Q4H PRN PRN Reason: psychosis Clonazepam (Clonazepam 0.5 Mg Tablet) 0.5 mg PO BEDTIME PRN PRN Reason: anxiety Last Admin: 03/13/23 21:24 Dose: 0.5 mg Diphenhydramine HCl (Diphenhydramine Hcl 25 Mg Capsule) 50 mg PO BEDTIME PRN PRN Reason: Insomnia Last Admin: 03/13/23 21:22 Dose: 50 mg Famotidine (Famotidine 20 Mg Tablet) 20 mg PO BID PRN PRN Reason: dyspepsia Hydroxyzine HCl (Hydroxyzine Hcl 25 Mg Tablet) 25 mg PO Q6H PRN PRN Reason: Anxiety Last Admin: 03/12/23 23:04 Dose: 25 mg [place] Carbonate ([place] Carbonate Er 450 Mg Tablet.Er) 900 mg PO BEDTIME VIC Last Admin: 03/13/23 21:23 Dose: 900 mg Magnesium Hydroxide (Milk Of Magnesia 30 Ml Oral.Susp) 30 ml PO DAILY PRN PRN Reason: Constipation Melatonin (Melatonin 3 Mg Tablet) 3 mg PO BEDTIME PRN PRN Reason: insomnia Last Admin: 03/12/23 20:49 Dose: 3 mg Nicotine Polacrilex (Nicotine Polacrilex 2 Mg Gum) 4 mg BUCCAL Q2H PRN PRN Reason: Nicotine Cravings Olanzapine (Olanzapine 10 Mg Tablet) 20 mg PO BEDTIME VIC Last Admin: 03/13/23 21:22 Dose: 20 mg Trazodone HCl (Trazodone Hcl 50 Mg Tablet) 50 mg PO BEDTIME MRX1 PRN PRN Reason: Insomnia Last Admin: 03/13/23 21:24 Dose: 50 mg Allergies Allergies Allergy/AdvReac Type Severity Reaction Status Date / Time No Known Allergies Allergy Verified 02/22/22 16:29 Assessment & Plan Assessment & Plan (1) Schizoaffective disorder, bipolar type: Status: Acute Code(s): F25.0 - Schizoaffective disorder, bipolar type (2) Chronic post-traumatic stress disorder (PTSD): Status: Acute Code(s): F43.12 - Post-traumatic stress disorder, chronic Plan 23 yo male, history of schizoaffective disorder and PTSD, well known to M5, returns for admission with active symptoms after stopping medications in Nov 2022 after discharge. Pt experiencing return of psychotic sx, lability. States he is only willing to accept [place]. Hospital course: 03/12 patient with paranoid and grandiose delusions however able to keep them to himself. Agrees to take medication. Will increase lithium ER to 900 mg q.h.s., he was on 1200 mg at last admission; was going to increase Zyprexa to 30 mg however not sure if there was much difference from 20-30 mg so will keep it at 20 mg for now. 03/13 patient remains with delusional content however the bothersome part of it seems to be resolving. Patient is friendly, calm and appropriate with peers and staff, demonstrating good behavioral do impulse control. Sleeping through the night. Tolerating medications. Will leave medication doses as they are and get levels; If patient remains stable will proceed with discharge plans. stock worker talked with patient's mother who feels good about him coming home soon. 03/14 patient remains in good behavioral control, able to sleep, no manic symptoms; he also remains with strong paranoid, grandiose delusional believes that consume his thoughts; however he does not express these delusional thoughts unless he is asked about them and is otherwise able to interact with peers and s taff appropriately. Patient remains flat any insight however he is utilizing improved judgment saying he needs medications and will continue taking them. No interest in substance abuse treatment Plan: CV q15 min checks Continue [place] ER to 900mg qhs (was on 1200 mg at last admission) Zyprexa 20 mg; will consider increasing as he was on 30 mg last time he was here, however not sure how much difference the extra 10 mg made Will order lithium level and associated labs Re-establish alliance Encourage medications. Support, educate. Patient educated on: diagnosis, medication risk/benefits and substance abuse Informed Consent: understands Reason for continued inpatient stay Substantial Risk for: rapid decompensation and med/psych decompensation Time Spent With Patient Time: Total time managing care of this patient today ____ minutes.
[2023-03-14 10:57] VITALS: BP 129/80; PULSE 100; RESP 16; TEMP 36.8; O2SAT 97
[2023-03-14 16:15] VITALS: BP 126/86; PULSE 78; TEMP 36.8
[2023-03-14] MEDS: clonazePAM 0.5 MG TABLET PO (20:23)
[2023-03-14] MEDS: OLANZapine 10 MG TABLET 20 MG PO (20:23)
[2023-03-14] MEDS: diphenhydrAMINE HCL 25 MG CAPSULE 50 MG PO (20:24)
[2023-03-14] MEDS: Lithium Carbonate ER 450 MG TABLET.ER 900 MG PO (20:24)
[2023-03-14] MEDS: traZODone HCL 50 MG TABLET PO (20:24)
[2023-03-15 06:00] VITALS: BP 121/76; PULSE 91; RESP 16; TEMP 36.7; O2SAT 99
[2023-03-15] MEDS: Acetaminophen 325 MG TABLET 650 MG PO (07:02)
[2023-03-15] MEDS: Magnesium Hydrox/Alum Hydrox 30 ML ORAL.SUSP PO ×2 (07:02→21:47)
--- NOTE | 2023-03-15 08:56 | HO.PSYCHPN ---
Subjective Subjective Date of Service: 03/15/23 Reason For Visit: Schizoaffective disorder, bipolar type Interim History: Met With patient; discussed with team Patient said that he is doing well and that my anxiety and depression are 0... Discussed sleeping medications and feels trazodone makes him too groggy in the morning; he will try Remeron instead. He remains with paranoid and grandiose delusions, but still only sharing them when inquired. Otherwise polite and friendly with peers and staff. Sleeping through the night Mental Status Exam Mental Status Exam Narrative: Pt is alert and oriented; behavior is cooperative, calm, friendly; dressed in casual attire with long, combed hair, glasses; with adequate hygiene; mood is described anxiety and depression are 0 and affect is congruent, brighter, calm; eye contact appropriate; Speech is normal rate, volume; normal prosody; not pressured; no psychomotor agitation present; thought process is goal directed; Thought content is with paranoid delusions and grandiose thoughts but not expressing unless asked; able to be pertinent to relevant topics discussed; denies any SI/HI. Denies AVH; Patients insight and judgment are impaired but at baseline. Diagnostics Vital Signs (24Hr): Vital Signs - 24 hr 03/14/23 10:57 03/14/23 16:15 03/15/23 06:00 Temperature 98.2 F 98.2 F 98.0 F Pulse Rate 100 78 91 Respiratory Rate 16 16 Blood Pressure 129/80 126/86 121/76 Pulse Oximetry 97 99 Oxygen Delivery Method Room Air Room Air BMI result Body Mass Index 23.0 Labs 03/10/23 05:26 03/10/23 05:26 Labs: Laboratory Results - last 48 hr 03/14/23 07:53 [place] 0.44 L Medications Medications Current Medications Acetaminophen (Acetaminophen 325 Mg Tablet) 650 mg PO Q6H PRN PRN Reason: Headache/Pain Mild Scale (1-3) Last Admin: 03/15/23 07:02 Dose: 650 mg Al Hydroxide/Mg Hydroxide (Magnesium Hydrox/Alum Hydrox 30 Ml Oral.Susp) 30 ml PO Q6H PRN PRN Reason: Heartburn/Nausea Last Admin: 03/15/23 07:02 Dose: 30 ml Benztropine Mesylate (Benztropine Mesylate 0.5 Mg Tablet) 0.5 mg PO BID PRN PRN Reason: EPS Chlorpromazine HCl (Chlorpromazine Hcl 25 Mg Tablet) 50 mg PO Q4H PRN PRN Reason: psychosis Clonazepam (Clonazepam 0.5 Mg Tablet) 0.5 mg PO BEDTIME PRN PRN Reason: anxiety Last Admin: 03/14/23 20:23 Dose: 0.5 mg Diphenhydramine HCl (Diphenhydramine Hcl 25 Mg Capsule) 50 mg PO BEDTIME PRN PRN Reason: Insomnia Last Admin: 03/14/23 20:24 Dose: 50 mg Famotidine (Famotidine 20 Mg Tablet) 20 mg PO BID PRN PRN Reason: dyspepsia Hydroxyzine HCl (Hydroxyzine Hcl 25 Mg Tablet) 25 mg PO Q6H PRN PRN Reason: Anxiety Last Admin: 03/12/23 23:04 Dose: 25 mg [place] Carbonate ([place] Carbonate Er 450 Mg Tablet.Er) 900 mg PO BEDTIME VIC Last Admin: 03/14/23 20:24 Dose: 900 mg Magnesium Hydroxide (Milk Of Magnesia 30 Ml Oral.Susp) 30 ml PO DAILY PRN PRN Reason: Constipation Melatonin (Melatonin 3 Mg Tablet) 3 mg PO BEDTIME PRN PRN Reason: insomnia Last Admin: 03/12/23 20:49 Dose: 3 mg Nicotine Polacrilex (Nicotine Polacrilex 2 Mg Gum) 4 mg BUCCAL Q2H PRN PRN Reason: Nicotine Cravings Olanzapine (Olanzapine 10 Mg Tablet) 20 mg PO BEDTIME VIC Last Admin: 03/14/23 20:23 Dose: 20 mg Trazodone HCl (Trazodone Hcl 50 Mg Tablet) 50 mg PO BEDTIME MRX1 PRN PRN Reason: Insomnia Last Admin: 03/14/23 20:24 Dose: 50 mg Allergies Allergies Allergy/AdvReac Type Severity Reaction Status Date / Time No Known Allergies Allergy Verified 02/22/22 16:29 Assessment & Plan Assessment & Plan (1) Schizoaffective disorder, bipolar type: Status: Acute Code(s): F25.0 - Schizoaffective disorder, bipolar type (2) Chronic post-traumatic stress disorder (PTSD): Status: Acute Code(s): F43.12 - Post-traumatic stress disorder, chronic Plan 23 yo male, history of schizoaffective disorder and PTSD, well known to , returns for admission with active symptoms after stopping medications in Nov 2022 after discharge. Pt experiencing return of psychotic sx, lability. States he is only willing to accept [place]. Hospital course: 03/12 patient with paranoid and grandiose delusions however able to keep them to himself. Agrees to take medication. Will increase lithium ER to 900 mg q.h.s., he was on 1200 mg at last admission; was going to increase Zyprexa to 30 mg however not sure if there was much difference from 20-30 mg so will keep it at 20 mg for now. 03/13 patient remains with delusional content however the bothersome part of it seems to be resolving. Patient is friendly, calm and appropriate with peers and staff, demonstrating good behavioral do impulse control. Sleeping through the night. Tolerating medications. Will leave medication doses as they are and get levels; If patient remains stable will proceed with discharge plans. lube worker talked with patient's mother who feels good about him coming home soon. 03/14 patient remains in good behavioral control, able to sleep, no manic symptoms; he also remains with strong paranoid, grandiose delusional believes that consume his thoughts; however he does not express these delusional thoughts unless he is asked about them and is otherwise able to interact with peers and staff appropriately. Patient remains flat any insight however he is utilizing improved judgment saying he needs medications and will continue taking them. No interest in substance abuse treatment 03/15 continue current treatment plan Plan: CV q15 min checks Continue [place] ER to 900mg qhs (was on 1200 mg at last admission) Zyprexa 20 mg; will consider increasing as he was on 30 mg last time he was here, however not sure how much difference the extra 10 mg made Will order lithium level and associated labs Re-establish alliance Encourage medications. Support, educate. Patient educated on: diagnosis and medication risk/benefits Informed Consent: understands and does not understand Reason for continued inpatient stay Substantial Risk for: stable for discharge Time Spent With Patient Time: Total time managing care of this patient today ____ minutes.
[2023-03-15] MEDS: chlorproMAZINE HCl 25 MG TABLET 50 MG PO ×3 (10:34→21:07)
[2023-03-15] MEDS: hydrOXYzine HCL 25 MG TABLET PO (12:08)
[2023-03-15] MEDS: Throat Lozenge, Medicated LOZENGE 1 LOZENGE MUCOUS MEM ×2 (15:06→18:54)
[2023-03-15 16:22] VITALS: BP 139/86; PULSE 115; TEMP 36.4
[2023-03-15] MEDS: OLANZapine 10 MG TABLET 20 MG PO (21:04)
[2023-03-15] MEDS: Melatonin 3 MG TABLET PO (21:04)
[2023-03-15] MEDS: Lithium Carbonate ER 450 MG TABLET.ER 900 MG PO (21:04)
[2023-03-15] MEDS: clonazePAM 0.5 MG TABLET PO (21:04)
[2023-03-15] MEDS: diphenhydrAMINE HCL 25 MG CAPSULE 50 MG PO (21:05)
[2023-03-16] MEDS: chlorproMAZINE HCl 25 MG TABLET 50 MG PO ×2 (04:00→14:02)
[2023-03-16 06:00] VITALS: BP 132/80; PULSE 87; RESP 16; TEMP 36.4; O2SAT 98
--- NOTE | 2023-03-16 09:16 | HO.PSYCHPN ---
Subjective Subjective Date of Service: 03/16/23 Reason For Visit: Schizoaffective disorder, bipolar type Interim History: Met with patient; discussed with team Patient remains with delusional and grandiose thoughts; little more vocal about him. 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 However he shares enthusiastically that this current admission is been very helpful and is grateful for the medication. Mental Status Exam Mental Status Exam Narrative: Pt is alert and oriented; behavior is cooperative, calm, friendly; dressed in casual attire with long, combed hair, glasses; with adequate hygiene; mood is described anxiety and depression are 0 and affect is congruent, brighter, calm; eye contact appropriate; Speech is normal rate, volume; normal prosody; not pressured; no psychomotor agitation present; thought process is goal directed; Thought content is with paranoid delusions and grandiose thoughts, little more vocal about them but redirectable; able to be pertinent to relevant topics discussed; denies any SI/HI. Denies AVH; Patients insight and judgment are impaired but at baseline. Diagnostics Vital Signs (24Hr): Vital Signs - 24 hr 03/15/23 16:22 03/16/23 06:00 Temperature 97.5 F 97.5 F Pulse Rate 115 H 87 Respiratory Rate 16 Blood Pressure 139/86 132/80 Pulse Oximetry 98 Oxygen Delivery Method Room Air BMI result Body Mass Index 23.0 Labs 03/10/23 05:26 03/10/23 05:26 Medications Medications Current Medications Acetaminophen (Acetaminophen 325 Mg Tablet) 650 mg PO Q6H PRN PRN Reason: Headache/Pain Mild Scale (1-3) Last Admin: 03/15/23 07:02 Dose: 650 mg Al Hydroxide/Mg Hydroxide (Magnesium Hydrox/Alum Hydrox 30 Ml Oral.Susp) 30 ml PO Q6H PRN PRN Reason: Heartburn/Nausea Last Admin: 03/15/23 21:47 Dose: 30 ml Benzocaine (Throat Lozenge, Medicated Lozenge) 1 lozenge MUCOUS MEM Q2H PRN PRN Reason: Sore Throat Last Admin: 03/15/23 18:54 Dose: 1 lozenge Benztropine Mesylate (Benztropine Mesylate 0.5 Mg Tablet) 0.5 mg PO BID PRN PRN Reason: EPS Chlorpromazine HCl (Chlorpromazine Hcl 25 Mg Tablet) 50 mg PO Q4H PRN PRN Reason: agitation Last Admin: 03/16/23 04:00 Dose: 50 mg Clonazepam (Clonazepam 0.5 Mg Tablet) 0.5 mg PO BEDTIME PRN PRN Reason: nighttime anxiety Last Admin: 03/15/23 21:04 Dose: 0.5 mg Diphenhydramine HCl (Diphenhydramine Hcl 25 Mg Capsule) 50 mg PO BEDTIME PRN PRN Reason: Insomnia Last Admin: 03/15/23 21:05 Dose: 50 mg Famotidine (Famotidine 20 Mg Tablet) 20 mg PO BID PRN PRN Reason: dyspepsia Hydroxyzine HCl (Hydroxyzine Hcl 25 Mg Tablet) 25 mg PO Q6H PRN PRN Reason: Anxiety Last Admin: 03/15/23 12:08 Dose: 25 mg [place] Carbonate ([place] Carbonate Er 450 Mg Tablet.Er) 900 mg PO BEDTIME VIC Last Admin: 03/15/23 21:04 Dose: 900 mg Magn[place] Hydroxide (Milk Of Magnesia 30 Ml Oral.Susp) 30 ml PO DAILY PRN PRN Reason: Constipation Melatonin (Melatonin 3 Mg Tablet) 3 mg PO BEDTIME PRN PRN Reason: insomnia Last Admin: 03/15/23 21:04 Dose: 3 mg Nicotine Polacrilex (Nicotine Polacrilex 2 Mg Gum) 4 mg BUCCAL Q2H PRN PRN Reason: Nicotine Cravings Olanzapine (Olanzapine 10 Mg Tablet) 20 mg PO BEDTIME VIC Last Admin: 03/15/23 21:04 Dose: 20 mg Trazodone HCl (Trazodone Hcl 50 Mg Tablet) 50 mg PO BEDTIME MRX1 PRN PRN Reason: Insomnia Last Admin: 03/14/23 20:24 Dose: 50 mg Allergies Allergies Allergy/AdvReac Type Severity Reaction Status Date / Time No Known Allergies Allergy Verified 02/22/22 16:29 Assessment & Plan Assessment & Plan (1) Schizoaffective disorder, bipolar type: Status: Acute Code(s): F25.0 - Schizoaffective disorder, bipolar type (2) Chronic post-traumatic stress disorder (PTSD): Status: Acute Code(s): F43.12 - Post-traumatic stress disorder, chronic Plan 23 yo male, history of schizoaffective disorder and PTSD, well known to M5, returns for admission with active symptoms after stopping medications in Nov 2022 after discharge. Pt experiencing return of psychotic sx, lability. States he is only willing to accept [place]. Hospital course: 03/12 patient with paranoid and grandiose delusions however able to keep them to himself. Agrees to take medication. Will increase lithium ER to 900 mg q.h.s., he was on 1200 mg at last admission; was going to increase Zyprexa to 30 mg however not sure if there was much difference from 20-30 mg so will keep it at 20 mg for now. 03/13 patient remains with delusional content however the bothersome part of it seems to be resolving. Patient is friendly, calm and appropriate with peers and staff, demonstrating good behavioral do impulse control. Sleeping through the night. Tolerating medications. Will leave medication doses as they are and get levels; If patient remains stable will proceed with discharge plans. front desk worker talked with patient's mother who feels good about him coming home soon. 03/14 patient remains in good behavioral control, able to sleep, no manic symptoms; he also remains with strong paranoid, grandiose delusional believes that consume his thoughts; however he does not express these delusional thoughts unless he is asked about them and is otherwise able to interact with peers and staff appropriately. Patient remains flat any insight however he is utilizing improved judgment saying he needs medications and will continue taking them. No interest in substance abuse treatment 03/15 continue current treatment plan 03/16 patient remains with grandiose delusions, sometimes paranoid however he is not in imminent risk for harm to self or others and does not rise to the level of involuntary commitment. Patient returns to live with his mother who is supportive; continue current treatment plan. While lithium level might prove to be subtherapeutic, patient not comfortable taking higher dose at this time and it seems that he is overall more stable despite subtherapeutic dosing. -plan to discharge on Sunday Plan: CV q15 min checks PLAN TO DISCHARGE MONDAY 03/19 Continue [place] ER to 900mg qhs (was on 1200 mg at last admission) Zyprexa 20 mg; will consider increasing as he was on 30 mg last time he was here, however not sure how much difference the extra 10 mg made Will order lithium level and associated labs Re-establish alliance Encourage medications. Support, educate. Patient educated on: diagnosis and medication risk/benefits Informed Consent: understands, does not understand and further education needed Reason for continued inpatient stay Substantial Risk for: stable for discharge Time Spent With Patient Time: Total time managing care of this patient today ____ minutes.
[2023-03-16] MEDS: hydrOXYzine HCL 25 MG TABLET PO (16:43)
--- NOTE | 2023-03-16 17:01 | PM.PSYDC ---
DS: Providers Provider Date of Service: 03/19/23 Date of admission: 03/10/23 18:03 Date of discharge: 03/19/23 Primary care physician: Unknown Physician DS: Diagnosis Discharge Diagnosis (1) Schizoaffective disorder, bipolar type: Status: Acute (2) Chronic post-traumatic stress disorder (PTSD): Status: Acute DS: Medications Discharge Medications Home Medications: Previous Rx's Medication Instructions Recorded chlorpromazine 25 mg tablet 50 mg PO Q4H PRN agitation 30 days 03/16/23 #30 tabs diphenhydramine HCl 25 mg capsule 50 mg PO BEDTIME PRN Insomnia 30 03/16/23 days #60 caps hydroxyzine HCl 25 mg tablet 25 mg PO Q6H PRN Anxiety 30 days 03/16/23 #60 tabs lithium carbonate 450 mg 900 mg PO BEDTIME 30 days #60 tabs 03/16/23 tablet,extended release melatonin 3 mg tablet 3 mg PO BEDTIME PRN insomnia 30 03/16/23 days #30 tabs olanzapine 20 mg tablet 20 mg PO BEDTIME 30 days #30 tabs 03/16/23 Mental Status Exam Mental Status Exam Narrative: Pt is alert and oriented; behavior is cooperative, calm, friendly; dressed in casual attire with long, combed hair, glasses; with adequate hygiene; mood is described anxiety and depression are 0 and affect is congruent, brighter, calm; eye contact appropriate; Speech is pressured, volume; normal prosody;restless; no psychomotor agitation present; thought process is goal directed; Thought content is with paranoid delusions and grandiose thoughts, little more vocal about them but redirectable; able to be pertinent to relevant topics discussed; denies any SI/HI. Denies AVH; Patients insight and judgment are impaired but at baseline. Patient Appearance: Fatigued Patient Orientation: Person, Place, Time and Situation Level of Consciousness: Alert Patient Behavior: Talkative, Cooperative and Good Eye Contact Mood Description: Depressed Affect Description: Flat Patient Cognition Impaired: No Ability to Follow Directions: Good Speech Pattern: Spontaneous Speech Memory Description: Episodic Impaired Data Data Completed and Pending Completed studies during hospitalization [Text1]: 03/10/23 03/10/23 03/10/23 05:26 05:26 05:26 WBC 6.6 RBC 4.91 Hgb 14.0 Hct 42.4 MCV 86.4 MCH 28.5 MCHC 33.0 RDW 12.9 Plt Count 362 D MPV 9.9 Immature Gran % (Auto) 0.3 Neut % (Auto) 67.5 Lymph % (Auto) 19.6 L [place] % (Auto) 11.9 H Eos % (Auto) 0.2 Baso % (Auto) 0.5 Lymph # (Auto) 1.3 [place] # (Auto) 0.8 Eos # (Auto) 0.0 Baso # (Auto) 0.0 Abs Immat Gran (auto) 0.02 Absolute Neuts (auto) 4.5 Absolute Nucleated RBC 0.000 Nucleated RBC % (auto) 0.0 Sodium 140 Potassium 3.6 Chloride 104 Carbon Dioxide 23 Anion Gap 17 BUN 9 Creatinine 1.03 Estim Creat Clear Calc 116.0 Estimated GFR > 60 Random Glucose 118 H Estimat Average Glucose Hemoglobin A1c % Calcium 10.1 Magnesium Total Bilirubin 1.4 H AST 41 H ALT 59 H Alkaline Phosphatase 55 Total Protein 7.5 Albumin 5.1 H Triglycerides Cholesterol LDL Cholesterol, Calc HDL Cholesterol Vitamin B12 Folate TSH Free T4 Urine Color Urine Appearance Urine pH Ur Specific [place] Urine Protein Urine Glucose (UA) Urine Ketones Urine Blood Urine Nitrite Ur Leukocyte Esterase Urine RBC Urine WBC Ur Squamous Epith Cells Urine Bacteria Hyaline Casts Urine Opiates Screen Urine Fentanyl Screen Ur Barbiturates Screen Ur Phencyclidine Scrn Ur Amphetamines Screen U Benzodiazepines Scrn [place] Urine Cocaine Screen U Marijuana (THC) Screen Ethyl Alcohol < 10 COVID-19 (CATHERINE) Negative COVID-19 Clin Com See Note 03/10/23 03/10/23 03/11/23 05:26 05:27 07:15 WBC RBC Hgb Hct MCV MCH MCHC RDW Plt Count MPV Immature Gran % (Auto) Neut % (Auto) Lymph % (Auto) [place] % (Auto) Eos % (Auto) Baso % (Auto) Lymph # (Auto) [place] # (Auto) Eos # (Auto) Baso # (Auto) Abs Immat Gran (auto) Absolute Neuts (auto) Absolute Nucleated RBC Nucleated RBC % (auto) Sodium Potassium Chloride Carbon Dioxide Anion Gap BUN Creatinine Estim Creat Clear Calc Estimated GFR Random Glucose Estimat Average Glucose 100 Hemoglobin A1c % 5.1 Calcium Magnesium Total Bilirubin AST ALT Alkaline Phosphatase Total Protein Albumin Triglycerides Cholesterol LDL Cholesterol, Calc HDL Cholesterol Vitamin B12 Folate TSH Free T4 Urine Color Urine Appearance Urine pH Ur Specific [place] Urine Protein Urine Glucose (UA) Urine Ketones Urine Blood Urine Nitrite Ur Leukocyte Esterase Urine RBC Urine WBC Ur Squamous Epith Cells Urine Bacteria Hyaline Casts Urine Opiates Screen Not Detected Urine Fentanyl Screen Not Detected Ur Barbiturates Screen Not Detected Ur Phencyclidine Scrn Not Detected Ur Amphetamines Screen Not Detected U Benzodiazepines Scrn Not Detected [place] < 0.10 L Urine Cocaine Screen Not Detected U Marijuana (THC) Screen POSITIVE H Ethyl Alcohol COVID-19 (CATHERINE) COVID-19 Clin Com 03/11/23 03/11/23 03/14/23 07:15 17:15 07:53 WBC RBC Hgb Hct MCV MCH MCHC RDW Plt Count MPV Immature Gran % (Auto) Neut % (Auto) Lymph % (Auto) [place] % (Auto) Eos % (Auto) Baso % (Auto) Lymph # (Auto) [place] # (Auto) Eos # (Auto) Baso # (Auto) Abs Immat Gran (auto) Absolute Neuts (auto) Absolute Nucleated RBC Nucleated RBC % (auto) Sodium Potassium Chloride Carbon Dioxide Anion Gap BUN Creatinine Estim Creat Clear Calc Estimated GFR Random Glucose Estimat Average Glucose Hemoglobin A1c % Calcium Magnesium 2.2 Total Bilirubin AST ALT Alkaline Phosphatase Total Protein Albumin Triglycerides 79 Cholesterol 156 LDL Cholesterol, Calc 94 HDL Cholesterol 47 Vitamin B12 325 Folate 15.1 TSH 0.78 Free T4 1.27 Urine Color Yellow Urine Appearance Clear Urine pH 7.0 Ur Specific [place] <= 1.005 Urine Protein Negative Urine Glucose (UA) Negative Urine Ketones Negative Urine Blood Negative Urine Nitrite Negative Ur Leukocyte Esterase Negative Urine RBC 0-2 Urine WBC 0-5 Ur Squamous Epith Cells 0-2 Urine Bacteria None Seen Hyaline Casts 0-2 Urine Opiates Screen Urine Fentanyl Screen Ur Barbiturates Screen Ur Phencyclidine Scrn Ur Amphetamines Screen U Benzodiazepines Scrn [place] 0.44 L Urine Cocaine Screen U Marijuana (THC) Screen Ethyl Alcohol COVID-19 (CATHERINE) COVID-19 Clin Com DS: Summary Hospital Course Hospital Course: 23 yo male, history of schizoaffective disorder and PTSD, well known to M5, returns for admission for grandiose and paranoid delusions and some residual chauncey after stopping medications in Nov 2022 after discharge and relapsing w/ alcohol. On admission, pt is mildly hypomanic with grandiose, paranoid delusions, common to patient and consistent with all his past admissions. He is pleasant, more calm and asking to get back on [place] and Zyprexa. He says unlike his last admission he wanted to come to unit and get help saying he was starting to feel scared at home (due to delusions) and said you guys were right...i need medication. He refused Clozapine. Pt discussed Alcohol abuse; he was without and denies any w/drawal symptoms; pt had no interested in cutting down Etoh intake. On medications, Pt started sleeping well; he behaviors were appropriate, calm and friendly and he was w/out any paranoid delusions regarding peers or other people and he staying in good impulse control throughout his stay. He was restarted on [place] and zyprexa which he tolerated well. He remained w/ paranoid delusions and would talk about them with select staff given the opportunity, but also able to be redirected and keep his thoughts to himself if asked. Pt reported he was feeling much better he would like to DC home agreeing to remain to get lithium levels. Mother involved in care who corroborated no unsafe behaviors or thoughts/beliefs at home and that he seemed fine to return. [place] level sub-therapeutic as expected however given that medications thus far (over multiple admissions) have only mildly reduced symptoms (not resolved), medication regimen designed to best support his adherence. Given patients history of poor insight, medication non-adherence, poor follow-up and alcohol abuse, it remains likely that at some point pt will again decompensate. However, Pt was not in imminent risk for harm to self or others and did not rise to the level of involuntary commitment. His request for discharge honored. Time spent discussing smoking cessation with patient: 3 to 10 minutes Status at Discharge Functional status at discharge: independent ambulation Overall status at discharge: patient is back to baseline Time Spent with Patient Time attestation: Total time managing care of this patient today ____ minutes. Time spent: Less than 30 minutes Discharge Plan Discharge Anticipated Discharge Date/Time: 03/19/23 11:00 Patient Disposition: Home, Self-Care Discharge Diagnosis: Schizoaffective disorder, bipolar type Referrals: [facility] [employer] Deckhand: Kavitha Smallwood [Other] - 1 Week (Call to follow up with Kavitha as needed ) Therapy Intake:Lidia Montoya([facility]) [Other] - 03/21/23 2:00 pm (Telehealth ) Psychiatrist: Marlene Amador ([facility]) [Other] - 04/19/23 9:30 am (Telehealth ) Psychiatrist: Marlene Amador ([facility]) [Other] - 05/17/23 12:00 pm (Telehealth ) Physician,Unknown J [Primary Care Provider] - 1 Week Discharge Medications: New diphenhydramine HCl 25 mg Capsule 50 mg PO BEDTIME PRN (Reason: Insomnia) 30 Days Qty: 60 0RF chlorpromazine 25 mg Tablet 50 mg PO Q4H PRN (Reason: agitation) 30 Days Qty: 30 0RF lithium carbonate 450 mg Tablet Extended Release 900 mg PO BEDTIME 30 Days Qty: 60 0RF olanzapine 20 mg tablet 20 mg PO BEDTIME 30 Days Qty: 30 0RF melatonin 3 mg Tablet 3 mg PO BEDTIME PRN (Reason: insomnia) 30 Days Qty: 30 0RF hydroxyzine HCl 25 mg Tablet 25 mg PO Q6H PRN (Reason: Anxiety) 30 Days Qty: 60 0RF Discharge Orders: Discharge Order (Routine); Ordered 03/19/23 Ordered By: Albino Miranda Diet: Regular diet Activity on Discharge: As tolerated Stand Alone Forms: Patient Portal Discharge page, Community Support Care Plan Goals: Maintain mood and safe behaviors Take medications as prescribed Continue to pursue sobriety Practice coping skills Continue with outpatient providers and reach out to them as needed Health Concerns: Mood stability and behaviors Sobriety Plan of Treatment: Follow up with your PCP, psychiatric provider and other outpatient providers regarding above concerns Take medications as prescribed Assessment: Risk assessment at time of discharge:? Patient was interviewed prior to discharge and found to be fully oriented and without any SI or HI. Patient has insight and demonstrates good judgment in terms of wanting to pursue treatment. Patient is not in imminent risk of harm to self or others and has a safety plan that includes presenting to the closest ER or calling 911 if feeling unsafe.? Patient has been observed closely by nursing and unit staff throughout admission; patient has not engaged in any behaviors that suggest dangerousness to self or others and has demonstrated appropriate behaviors and impulse control Discharge Date/Time: 03/19/23 11:03
[2023-03-16 17:13] VITALS: BP 127/78; PULSE 90; TEMP 36.8; O2SAT 97
[2023-03-16] MEDS: Lithium Carbonate ER 450 MG TABLET.ER 900 MG PO (20:44)
[2023-03-16] MEDS: OLANZapine 10 MG TABLET 20 MG PO (20:44)
[2023-03-16] MEDS: Melatonin 3 MG TABLET PO (20:45)
[2023-03-16] MEDS: diphenhydrAMINE HCL 25 MG CAPSULE 50 MG PO (20:48)
[2023-03-16] MEDS: clonazePAM 0.5 MG TABLET PO (20:48)
[2023-03-16] MEDS: traZODone HCL 50 MG TABLET PO (23:59)
[2023-03-17 06:00] VITALS: BP 121/75; PULSE 16; RESP 16; TEMP 36.5; O2SAT 99
[2023-03-17 07:46] LABS: Blood Urea Nitrogen 10 mg/dL (9-16); Creatinine Clr Calc Pharmacy 134.3; Estimated Glomerular Filt Rate > 60
[2023-03-17] MEDS: Magnesium Hydrox/Alum Hydrox 30 ML ORAL.SUSP PO (08:00)
[2023-03-17 08:03] LABS: TSH reflex Free T4 1.63 uIU/mL (0.32-4.0)
--- NOTE | 2023-03-17 10:54 | P.PNPSI_ITS ---
Subjective Subjective Date of Service: 03/17/23 Reason For Visit: Schizoaffective disorder, bipolar type Interim History: Met with patient; discussed with team. Patient continues grossly psychotic but without behavioral incidents. 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 When asked what it is he said it is related to [place]. He believes he had encounters with aliens. Believes the government performed a sting ray on his phone and verified all the information on his phone as being correct. He plays the guitar well and sings as a way of coping on the unit. Medication Compliance: Yes Side effects from medications: No Review of Systems Review of Systems No fever no chills no chest pain Yes all other systems are reviewed and are negative Mental Status Exam Mental Status Exam Narrative: Pt is alert and oriented; behavior is cooperative, calm, friendly; dressed in casual attire with long, combed hair, glasses; with adequate hygiene; mood is described anxiety and depression are 0 and affect is congruent, brighter, calm; eye contact appropriate; Speech is pressured, volume; normal prosody;restless; no psychomotor agitation present; thought process is goal directed; Thought content is with paranoid delusions and grandiose thoughts, little more vocal about them but redirectable; able to be pertinent to relevant topics discussed; denies any SI/HI. Denies AVH; Patients insight and judgment are impaired but at baseline. Patient Appearance: Fatigued Patient Orientation: Person, Place, Time and Situation Level of Consciousness: Alert Patient Behavior: Talkative, Cooperative, Good Eye Contact and Crying Mood Description: Depressed Affect Description: Flat Patient Cognition Impaired: No Ability to Follow Directions: Good Speech Pattern: Spontaneous Speech Memory Description: Episodic Impaired Diagnostics Vital Signs (24Hr): Vital Signs - 24 hr 03/16/23 17:13 03/17/23 06:00 Temperature 98.3 F 97.7 F Pulse Rate 90 16 L Respiratory Rate 16 Blood Pressure 127/78 121/75 Pulse Oximetry 97 99 Oxygen Delivery Method Room Air Room Air BMI result Body Mass Index 23.0 Labs 03/10/23 05:26 03/17/23 07:08 Labs: Laboratory Results - last 48 hr 03/17/23 03/17/23 07:08 07:08 BUN 10 Creatinine 0.89 Estim Creat Clear Calc 134.3 Estimated GFR > 60 TSH 1.63 [place] 0.50 L Medications Medications Current Medications Acetaminophen (Acetaminophen 325 Mg Tablet) 650 mg PO Q6H PRN PRN Reason: Headache/Pain Mild Scale (1-3) Last Admin: 03/15/23 07:02 Dose: 650 mg Al Hydroxide/Mg Hydroxide (Magnesium Hydrox/Alum Hydrox 30 Ml Oral.Susp) 30 ml PO Q6H PRN PRN Reason: Heartburn/Nausea Last Admin: 03/17/23 08:00 Dose: 30 ml Benzocaine (Throat Lozenge, Medicated Lozenge) 1 lozenge MUCOUS MEM Q2H PRN PRN Reason: Sore Throat Last Admin: 03/15/23 18:54 Dose: 1 lozenge Benztropine Mesylate (Benztropine Mesylate 0.5 Mg Tablet) 0.5 mg PO BID PRN PRN Reason: EPS Chlorpromazine HCl (Chlorpromazine Hcl 25 Mg Tablet) 50 mg PO Q4H PRN PRN Reason: agitation Last Admin: 03/16/23 14:02 Dose: 50 mg Clonazepam (Clonazepam 0.5 Mg Tablet) 0.5 mg PO BEDTIME PRN PRN Reason: nighttime anxiety Last Admin: 03/16/23 20:48 Dose: 0.5 mg Diphenhydramine HCl (Diphenhydramine Hcl 25 Mg Capsule) 50 mg PO BEDTIME PRN PRN Reason: Insomnia Last Admin: 03/16/23 20:48 Dose: 50 mg Famotidine (Famotidine 20 Mg Tablet) 20 mg PO BID PRN PRN Reason: dyspepsia Hydroxyzine HCl (Hydroxyzine Hcl 25 Mg Tablet) 25 mg PO Q6H PRN PRN Reason: Anxiety Last Admin: 03/16/23 16:43 Dose: 25 mg [place] Carbonate ([place] Carbonate Er 450 Mg Tablet.Er) 900 mg PO BEDTIME VIC Last Admin: 03/16/23 20:44 Dose: 900 mg Magnesium Hydroxide (Milk Of Magnesia 30 Ml Oral.Susp) 30 ml PO DAILY PRN PRN Reason: Constipation Melatonin (Melatonin 3 Mg Tablet) 3 mg PO BEDTIME PRN PRN Reason: insomnia Last Admin: 03/16/23 20:45 Dose: 3 mg Nicotine Polacrilex (Nicotine Polacrilex 2 Mg Gum) 4 mg BUCCAL Q2H PRN PRN Reason: Nicotine Cravings Olanzapine (Olanzapine 10 Mg Tablet) 20 mg PO BEDTIME VIC Last Admin: 03/16/23 20:44 Dose: 20 mg Trazodone HCl (Trazodone Hcl 50 Mg Tablet) 50 mg PO BEDTIME MRX1 PRN PRN Reason: Insomnia Last Admin: 03/16/23 23:59 Dose: 50 mg Allergies Allergies Allergy/AdvReac Type Severity Reaction Status Date / Time No Known Allergies Allergy Verified 02/22/22 16:29 Assessment & Plan Assessment & Plan (1) Schizoaffective disorder, bipolar type: Status: Acute Code(s): F25.0 - Schizoaffective disorder, bipolar type (2) Chronic post-traumatic stress disorder (PTSD): Status: Acute Code(s): F43.12 - Post-traumatic stress disorder, chronic Plan 23 yo male, history of schizoaffective disorder and PTSD, well known to M5, returns for admission with active symptoms after stopping medications in Nov 23 after discharge. Pt experiencing return of psychotic sx, lability. States he is only willing to accept [place]. Hospital course: 03/12 patient with paranoid and grandiose delusions however able to keep them to himself. Agrees to take medication. Will increase lithium ER to 900 mg q.h.s., he was on 1200 mg at last admission; was going to increase Zyprexa to 30 mg how ever not sure if there was much difference from 20-30 mg so will keep it at 20 mg for now. 03/13 patient remains with delusional content however the bothersome part of it seems to be resolving. Patient is friendly, calm and appropriate with peers and staff, demonstrating good behavioral do impulse control. Sleeping through the night. Tolerating medications. Will leave medication doses as they are and get levels; If patient remains stable will proceed with discharge plans. herbarium worker talked with patient's mother who feels good about him coming home soon. 03/14 patient remains in good behavioral control, able to sleep, no manic symptoms; he also remains with strong paranoid, grandiose delusional believes that consume his thoughts; however he does not express these delusional thoughts unless he is asked about them and is otherwise able to interact with peers and staff appropriately. Patient remains flat any insight however he is utilizing improved judgment saying he needs medications and will continue taking them. No interest in substance abuse treatment 03/15 continue current treatment plan 03/16 patient remains with grandiose delusions, sometimes paranoid however he is not in imminent risk for harm to self or others and does not rise to the level of involuntary commitment. Patient returns to live with his mother who is supportive; continue current treatment plan. While lithium level might prove to be subtherapeutic, patient not comfortable taking higher dose at this time and it seems that he is overall more stable despite subtherapeutic dosing. -plan to discharge on Saturday 03/17: Cpntinue current treatment plan. Li level 0.5. Consider increase. Plan: CV q15 min checks PLAN TO DISCHARGE MONDAY 03/19 Continue [place] ER to 900mg qhs (was on 1200 mg at last admission) Zyprexa 20 mg; will consider increasing as he was on 30 mg last time he was here, however not sure how much difference the extra 10 mg made Will order lithium level and associated labs Re-establish alliance Encourage medications. Support, educate. Reason for continued inpatient stay Substantial Risk for: inability to function and rapid decompensation Time Spent With Patient Time: Total time managing care of this patient today ____ minutes.
[2023-03-17] MEDS: chlorproMAZINE HCl 25 MG TABLET 50 MG PO (15:29)
[2023-03-17 18:51] VITALS: BP 128/72; PULSE 117; TEMP 36.2
[2023-03-17] MEDS: Lithium Carbonate ER 450 MG TABLET.ER 900 MG PO (20:45)
[2023-03-17] MEDS: clonazePAM 0.5 MG TABLET PO (20:46)
[2023-03-17] MEDS: OLANZapine 10 MG TABLET 20 MG PO (20:46)
[2023-03-17] MEDS: diphenhydrAMINE HCL 25 MG CAPSULE 50 MG PO (20:46)
[2023-03-17] MEDS: Melatonin 3 MG TABLET PO (20:46)
[2023-03-18 09:03] VITALS: BP 129/86; PULSE 110; RESP 16; TEMP 36.6; O2SAT 98
[2023-03-18 15:54] VITALS: BP 127/79; PULSE 110; TEMP 36.7
--- NOTE | 2023-03-18 18:21 | P.PNPSI_ITS ---
Subjective Subjective Date of Service: 03/18/23 Reason For Visit: Schizoaffective disorder, bipolar type Interim History: Met with patient; discussed with team. Patient continues grossly psychotic but without behavioral incidents. He continues with grandiose talk about his importance and status. Talks about meeting up with the [employer]ard[employer]ians after DC. He plays the guitar well and sings as a way of coping on the unit. Pleasant. Compliant with medications. Per staff that have known him from previous encounters, close to baseline. Possible DC tomorrow. Review of Systems Review of Systems No fever no chills no chest pain Yes all other systems are reviewed and are negative Mental Status Exam Mental Status Exam Narrative: Pt is alert and oriented; behavior is cooperative, calm, friendly; dressed in casual attire with long, combed hair, glasses; with adequate hygiene; mood is described anxiety and depression are 0 and affect is congruent, brighter, calm; eye contact appropriate; Speech is pressured, volume; normal prosody;restless; no psychomotor agitation present; thought process is goal directed; Thought content is with paranoid delusions and grandiose thoughts, little more vocal about them but redirectable; able to be pertinent to relevant topics discussed; denies any SI/HI. Denies AVH; Patients insight and judgment are impaired but at baseline. Patient Appearance: Fatigued Patient Orientation: Person, Place, Time and Situation Level of Consciousness: Alert Patient Behavior: Talkative, Cooperative, Good Eye Contact and Crying Mood Description: Depressed Affect Description: Flat Patient Cognition Impaired: No Ability to Follow Directions: Good Speech Pattern: Spontaneous Speech Memory Description: Episodic Impaired Diagnostics Vital Signs (24Hr): Vital Signs - 24 hr 03/17/23 18:51 03/18/23 09:03 03/18/23 15:54 Temperature 97.1 F 97.8 F 98.1 F Pulse Rate 117 H 110 H 110 H Respiratory Rate 16 Blood Pressure 128/72 129/86 127/79 Pulse Oximetry 98 Oxygen Delivery Method Room Air BMI result Body Mass Index 23.0 Labs 03/10/23 05:26 03/17/23 07:08 Labs: Laboratory Results - last 48 hr 03/17/23 03/17/23 07:08 07:08 BUN 10 Creatinine 0.89 Estim Creat Clear Calc 134.3 Estimated GFR > 60 TSH 1.63 [place] 0.50 L Medications Medications Current Medications Acetaminophen (Acetaminophen 325 Mg Tablet) 650 mg PO Q6H PRN PRN Reason: Headache/Pain Mild Scale (1-3) Last Admin: 03/15/23 07:02 Dose: 650 mg Al Hydroxide/Mg Hydroxide (Magnesium Hydrox/Alum Hydrox 30 Ml Oral.Susp) 30 ml PO Q6H PRN PRN Reason: Heartburn/Nausea Last Admin: 03/17/23 08:00 Dose: 30 ml Benzocaine (Throat Lozenge, Medicated Lozenge) 1 lozenge MUCOUS MEM Q2H PRN PRN Reason: Sore Throat Last Admin: 03/15/23 18:54 Dose: 1 lozenge Benztropine Mesylate (Benztropine Mesylate 0.5 Mg Tablet) 0.5 mg PO BID PRN PRN Reason: EPS Chlorpromazine HCl (Chlorpromazine Hcl 25 Mg Tablet) 50 mg PO Q4H PRN PRN Reason: agitation Last Admin: 03/17/23 15:29 Dose: 50 mg Clonazepam (Clonazepam 0.5 Mg Tablet) 0.5 mg PO BEDTIME PRN PRN Reason: nighttime anxiety Last Admin: 03/17/23 20:46 Dose: 0.5 mg Diphenhydramine HCl (Diphenhydramine Hcl 25 Mg Capsule) 50 mg PO BEDTIME PRN PRN Reason: Insomnia Last Admin: 03/17/23 20:46 Dose: 50 mg Famotidine (Famotidine 20 Mg Tablet) 20 mg PO BID PRN PRN Reason: dyspepsia Hydroxyzine HCl (Hydroxyzine Hcl 25 Mg Tablet) 25 mg PO Q6H PRN PRN Reason: Anxiety Last Admin: 03/16/23 16:43 Dose: 25 mg [place] Carbonate ([place] Carbonate Er 450 Mg Tablet.Er) 900 mg PO BEDTIME VIC Last Admin: 03/17/23 20:45 Dose: 900 mg Magnesium Hydroxide (Milk Of Magnesia 30 Ml Oral.Susp) 30 ml PO DAILY PRN PRN Reason: Constipation Melatonin (Melatonin 3 Mg Tablet) 3 mg PO BEDTIME PRN PRN Reason: insomnia Last Admin: 03/17/23 20:46 Dose: 3 mg Nicotine Polacrilex (Nicotine Polacrilex 2 Mg Gum) 4 mg BUCCAL Q2H PRN PRN Reason: Nicotine Cravings Olanzapine (Olanzapine 10 Mg Tablet) 20 mg PO BEDTIME VIC Last Admin: 03/17/23 20:46 Dose: 20 mg Trazodone HCl (Trazodone Hcl 50 Mg Tablet) 50 mg PO BEDTIME MRX1 PRN PRN Reason: Insomnia Last Admin: 03/16/23 23:59 Dose: 50 mg Allergies Allergies Allergy/AdvReac Type Severity Reaction Status Date / Time No Known Allergies Allergy Verified 02/22/22 16:29 Assessment & Plan Assessment & Plan (1) Schizoaffective disorder, bipolar type: Status: Acute Code(s): F25.0 - Schizoaffective disorder, bipolar type (2) Chronic post-traumatic stress disorder (PTSD): Status: Acute Code(s): F43.12 - Post-traumatic stress disorder, chronic Plan 23 yo male, history of schizoaffective disorder and PTSD, well known to , returns for admission with active symptoms after stopping medications in Nov 2022 after discharge. Pt experiencing return of psychotic sx, lability. States he is only willing to accept [place]. Hospital course: 03/12 patient with paranoid and grandiose delusions however able to keep them to himself. Agrees to take medication. Will increase lithium ER to 900 mg q.h.s., he was on 1200 mg at last admission; was going to increase Zyprexa to 30 mg however not sure if there was much difference from 20-30 mg so will keep it at 20 mg for now. 03/13 patient remains with delusional content however the bothersome part of it seems to be resolving. Patient is friendly, calm and appropriate with peers and staff, demonstrating good behavioral do impulse control. Sleeping through the night. Tolerating medications. Will leave medication doses as they are and get levels; If patient remains stable will proceed with discharge plans. glueline worker talked with patient's mother who feels good about him coming home soon. 03/14 patient remains in good behavioral control, able to sleep, no manic symptoms; he also remains with strong paranoid, grandiose delusional believes that consume his thoughts; however he does not express these delusional thoughts unless he is asked about them and is otherwise able to interact with peers and staff appropriately. Patient remains flat any insight however he is utilizing improved judgment saying he needs medications and will continue taking them. No interest in substance abuse treatment 03/15 continue current treatment plan 03/16 patient remains with grandiose delusions, sometimes paranoid however he is not in imminent risk for harm to self or others and does not rise to the level of involuntary commitment. Patient returns to live with his mother who is supportive; continue current treatment plan. While lithium level might prove to be subtherapeutic, patient not comfortable taking higher dose at this time and it seems that he is overall more stable despite subtherapeutic dosing. -plan to discharge on Saturday 03/17: Continue current treatment plan. Li level 0.5. Consider increase. 03/18:Continue current treatment plan. Plan: CV q15 min checks PLAN TO DISCHARGE MONDAY 03/19 Continue [place] ER to 900mg qhs (was on 1200 mg at last admission) Zyprexa 20 mg; will consider increasing as he was on 30 mg last time he was here, however not sure how much difference the extra 10 mg made Will order lithium level and associated labs Re-establish alliance Encourage medications. Support, educate. Reason for continued inpatient stay Substantial Risk for: inability to function and rapid decompensation Time Spent With Patient Time: Total time managing care of this patient today ____ minutes.
[2023-03-18] MEDS: diphenhydrAMINE HCL 25 MG CAPSULE 50 MG PO (19:55)
[2023-03-18] MEDS: Lithium Carbonate ER 450 MG TABLET.ER 900 MG PO (19:55)
[2023-03-18] MEDS: clonazePAM 0.5 MG TABLET PO (19:56)
[2023-03-18] MEDS: OLANZapine 10 MG TABLET 20 MG PO (19:56)
[2023-03-18] MEDS: Melatonin 3 MG TABLET PO (19:56)
--- NOTE | 2023-03-18 22:14 | HO.PSYCHPN ---
Subjective Subjective Date of Service: 03/18/23 Reason For Visit: Schizoaffective disorder, bipolar type Interim History: Met with patient; discussed with team. Patient continues grossly psychotic but without behavioral incidents. He continues with grandiose talk about his importance and status. Talks about being the most important person in the [place]. He plays the guitar well and sings as a way of coping on the unit. Pleasant. Compliant with medications. Per staff that have known him from previous encounters, close to baseline. Possible DC tomorrow. Review of Systems Review of Systems No fever no chills no chest pain Yes all other systems are reviewed and are negative Mental Status Exam Mental Status Exam Narrative: Pt is alert and oriented; behavior is cooperative, calm, friendly; dressed in casual attire with long, combed hair, glasses; with adequate hygiene; mood is described anxiety and depression are 0 and affect is congruent, brighter, calm; eye contact appropriate; Speech is pressured, volume; normal prosody;restless; no psychomotor agitation present; thought process is goal directed; Thought content is with paranoid delusions and grandiose thoughts, little more vocal about them but redirectable; able to be pertinent to relevant topics discussed; denies any SI/HI. Denies AVH; Patients insight and judgment are impaired but at baseline. Patient Appearance: Fatigued Patient Orientation: Person, Place, Time and Situation Level of Consciousness: Alert Patient Behavior: Talkative, Cooperative, Good Eye Contact and Crying Mood Description: Depressed Affect Description: Flat Patient Cognition Impaired: No Ability to Follow Directions: Good Speech Pattern: Spontaneous Speech Memory Description: Episodic Impaired Diagnostics Vital Signs (24Hr): Vital Signs - 24 hr 03/18/23 09:03 03/18/23 15:54 Temperature 97.8 F 98.1 F Pulse Rate 110 H 110 H Respiratory Rate 16 Blood Pressure 129/86 127/79 Pulse Oximetry 98 Oxygen Delivery Method Room Air BMI result Body Mass Index 23.0 Labs 03/10/23 05:26 03/17/23 07:08 Labs: Laboratory Results - last 48 hr 03/17/23 03/17/23 07:08 07:08 BUN 10 Creatinine 0.89 Estim Creat Clear Calc 134.3 Estimated GFR > 60 TSH 1.63 [place] 0.50 L Medications Medications Current Medications Acetaminophen (Acetaminophen 325 Mg Tablet) 650 mg PO Q6H PRN PRN Reason: Headache/Pain Mild Scale (1-3) Last Admin: 03/15/23 07:02 Dose: 650 mg Al Hydroxide/Mg Hydroxide (Magnesium Hydrox/Alum Hydrox 30 Ml Oral.Susp) 30 ml PO Q6H PRN PRN Reason: Heartburn/Nausea Last Admin: 03/17/23 08:00 Dose: 30 ml Benzocaine (Throat Lozenge, Medicated Lozenge) 1 lozenge MUCOUS MEM Q2H PRN PRN Reason: Sore Throat Last Admin: 03/15/23 18:54 Dose: 1 lozenge Benztropine Mesylate (Benztropine Mesylate 0.5 Mg Tablet) 0.5 mg PO BID PRN PRN Reason: EPS Chlorpromazine HCl (Chlorpromazine Hcl 25 Mg Tablet) 50 mg PO Q4H PRN PRN Reason: agitation Last Admin: 03/17/23 15:29 Dose: 50 mg Clonazepam (Clonazepam 0.5 Mg Tablet) 0.5 mg PO BEDTIME PRN PRN Reason: nighttime anxiety Last Admin: 03/18/23 19:56 Dose: 0.5 mg Diphenhydramine HCl (Diphenhydramine Hcl 25 Mg Capsule) 50 mg PO BEDTIME PRN PRN Reason: Insomnia Last Admin: 03/18/23 19:55 Dose: 50 mg Famotidine (Famotidine 20 Mg Tablet) 20 mg PO BID PRN PRN Reason: dyspepsia Hydroxyzine HCl (Hydroxyzine Hcl 25 Mg Tablet) 25 mg PO Q6H PRN PRN Reason: Anxiety Last Admin: 03/16/23 16:43 Dose: 25 mg [place] Carbonate ([place] Carbonate Er 450 Mg Tablet.Er) 900 mg PO BEDTIME VIC Last Admin: 03/18/23 19:55 Dose: 900 mg Magnesium Hydroxide (Milk Of Magnesia 30 Ml Oral.Susp) 30 ml PO DAILY PRN PRN Reason: Constipation Melatonin (Melatonin 3 Mg Tablet) 3 mg PO BEDTIME PRN PRN Reason: insomnia Last Admin: 03/18/23 19:56 Dose: 3 mg Nicotine Polacrilex (Nicotine Polacrilex 2 Mg Gum) 4 mg [place]CC[place] Q2H PRN PRN Reason: Nicotine Cravings Olanzapine (Olanzapine 10 Mg Tablet) 20 mg PO BEDTIME VIC Last Admin: 03/18/23 19:56 Dose: 20 mg Trazodone HCl (Trazodone Hcl 50 Mg Tablet) 50 mg PO BEDTIME MRX1 PRN PRN Reason: Insomnia Last Admin: 03/16/23 23:59 Dose: 50 mg Allergies Allergies Allergy/AdvReac Type Severity Reaction Status Date / Time No Known Allergies Allergy Verified 02/22/22 16:29 Assessment & Plan Assessment & Plan (1) Schizoaffective disorder, bipolar type: Status: Acute Code(s): F25.0 - Schizoaffective disorder, bipolar type (2) Chronic post-traumatic stress disorder (PTSD): Status: Acute Code(s): F43.12 - Post-traumatic stress disorder, chronic Plan 23 yo male, history of schizoaffective disorder and PTSD, well known to [facility], returns for admission with active symptoms after stopping medications in Nov 2022 after discharge. Pt experiencing return of psychotic sx, lability. States he is only willing to accept [place]. Hospital course: 03/12 patient with paranoid and grandiose delusions however able to keep them to himself. Agrees to take medication. Will increase lithium ER to 900 mg q.h.s., he was on 1200 mg at last admission; was going to increase Zyprexa to 30 mg however not sure if there was much difference from 20-30 mg so will keep it at 20 mg for now. 03/13 patient remains with delusional content however the bothersome part of it seems to be resolving. Patient is friendly, calm and appropriate with peers and staff, demonstrating good behavioral do impulse control. Sleeping through the night. Tolerating medications. Will leave medication doses as they are and get levels; If patient remains stable will proceed with discharge plans. can intake worker talked with patient's mother who feels good about him coming home soon. 03/14 patient remains in good behavioral control, able to sleep, no manic symptoms; he also remains with strong paranoid, grandiose delusional believes that consume his thoughts; however he does not express these delusional thoughts unless he is asked about them and is otherwise able to interact with peers and staff appropriately. Patient remains flat any insight however he is utilizing improved judgment saying he needs medications and will continue taking them. No interest in substance abuse treatment 03/15 continue current treatment plan 03/16 patient remains with grandiose delusions, sometimes paranoid however he is not in imminent risk for harm to self or others and does not rise to the level of involuntary commitment. Patient returns to live with his mother who is supportive; continue current treatment plan. While lithium level might prove to be subtherapeutic, patient not comfortable taking higher dose at this time and it seems that he is overall more stable despite subtherapeutic dosing. -plan to discharge on Saturday 03/17: Continue current treatment plan. Li level 0.5. Consider increase. 03/18:Continue current treatment plan. Plan: CV q15 min checks PLAN TO DISCHARGE MONDAY 03/19 Continue [place] ER to 900mg qhs (was on 1200 mg at last admission) Zyprexa 20 mg; will consider increasing as he was on 30 mg last time he was here, however not sure how much difference the extra 10 mg made Will order lithium level and associated labs Re-establish alliance Encourage medications. Support, educate. Reason for continued inpatient stay Substantial Risk for: inability to function and rapid decompensation Time Spent With Patient Time: Total time managing care of this patient today ____ minutes.
[2023-03-19 08:06] VITALS: BP 129/77; PULSE 96; RESP 16; TEMP 36.6; O2SAT 99
== END 2023-03-19 11:03 | disposition home or self-care (01) | DRG 750 ==
LOC: HO.ED 06:44 → HO.PM5 18:06
PROVIDERS: Emergency Medicine Emergency Medical Services; Admitting Provider Clinical Nurse Specialist Psychiatric/Mental Health, Adult; Emergency Provider Emergency Medicine Emergency Medical Services; Visit Provider Psychiatry & Neurology Psychiatry
DX: F25.0 Schizoaffective disorder, bipolar type (principal); Z91.148 Patient's other noncompliance with medication regimen for other reason; F17.210 Nicotine dependence, cigarettes, uncomplicated; F43.12 Post-traumatic stress disorder, chronic; Z71.6 Tobacco abuse counseling; Z20.822 Contact with and (suspected) exposure to COVID-19; Z79.899 Other long term (current) drug therapy
CPT/HCPCS: 36415; 80053; 80061; 80178; 80307; 81001; 82565; 82607; 82746; 83036; 83735; 84439; 84443; 84520; 85025; 87635; 93005; 99285; S9485

== ENCOUNTER 2023-03-23 17:53 | Inpatient (IN) | payer MEDICAID, OTHER, SELFPAY ==
[2023-03-23 17:58] VITALS: BP 142/80; PULSE 103; O2SAT 98
[2023-03-23 18:16] VITALS: BP 132/92; PULSE 91; RESP 18; TEMP 37.1; O2SAT 98; BMI 23.0
[2023-03-23 18:43] LABS: MANUAL DIFF FLAG NO
[2023-03-23 18:45] LABS: Basophils Percent Auto 0.6 % (0-2); Eosinophils Absolute Auto 0.2 X10*3/uL (0.0-0.4); Eosinophils Percent Auto 2.7 % (0-4); Hematocrit 41.3 % (42.0-52.0); Hemoglobin 13.5 g/dl (14.0-18.0); Imm Gran Abs Auto 0.02 X10*3/uL (0.00-0.03); Imm Gran Pct Auto 0.3 % (0.0-0.4); Lymphocytes Absolute Auto 1.9 X10*3/uL (1.2-4.9); Lymphocytes Percent Auto 26.2 % (20-40); Mean Corpuscular HGB Conc 32.7 g/dl (31.0-36.0); Mean Corpuscular Hemoglobin 28.8 pg (27.0-33.0); Mean Corpuscular Volume 88.2 fL (80.0-98.0); Mean Platelet Volume 9.7 fL (9.4-12.4); Monocytes Absolute Auto 0.5 X10*3/uL (0.1-1.2); Monocytes Percent Auto 7.3 % (2-11); Neutrophils Absolute Auto 4.5 x10*3/uL (2.0-8.3); Neutrophils Percent Auto 62.9 % (45-73); Platelet Count 328 X10*3/uL (160-400); Red Blood Count 4.68 X10*6/uL (4.60-5.80); Red Cell Distribution Width 12.9 % (11.0-16.0); White Blood Count 7.1 X10*3/uL (4.8-10.8)
--- NOTE | 2023-03-23 18:50 | ED.GENADULT ---
HPI - General Adult General Chief complaint: Psychiatric Symptoms Stated complaint: SEC 12 Time Seen by Provider: 03/23/23 18:50 Source: patient and EMS Mode of arrival: EMS Limitations: no limitations History of Present Illness HPI narrative: Patient is a 23 year old assigned male at with a history of schizoaffective disorder presenting to the emergency department today with acute psychosis. Patient states that he got into a verbal altercation with his mother and CHD worker because they wanted to watch him take his Zyprexa but he was just trying to explain he wanted to wait to take his medication. Patient's section 12 states that the patient is also hallucinating aliens and rambling off about random things with increased aggression. Patient denies any dizziness, lightheadedness, abdominal pain, nausea, vomiting, fever, chills, blurry vision, double vision, loss of vision, chest pain, difficulty breathing, shortness of breath, back pain, night sweats, pain with urination, increased urinary frequency, increased urinary urgency, blood in his urine or stool, syncope or a near syncopal episode, recent trauma or falls, bowel incontinence, bladder incontinence, bowel retention, bladder retention, or any other complaints at this time. Relieving factors: none Exacerbating factors: none Associated symptoms: denies other symptoms Treatments prior to arrival: none Related Data Previous Rx's Medication Instructions Recorded chlorpromazine 25 mg tablet 50 mg PO Q4H PRN agitation 30 days 03/16/23 #30 tabs diphenhydramine HCl 25 mg capsule 50 mg PO BEDTIME PRN Insomnia 30 03/16/23 days #60 caps hydroxyzine HCl 25 mg tablet 25 mg PO Q6H PRN Anxiety 30 days 03/16/23 #60 tabs lithium carbonate 450 mg 900 mg PO BEDTIME 30 days #60 tabs 03/16/23 tablet,extended release melatonin 3 mg tablet 3 mg PO BEDTIME PRN insomnia 30 03/16/23 days #30 tabs olanzapine 20 mg tablet 20 mg PO BEDTIME 30 days #30 tabs 03/16/23 Allergies Allergy/AdvReac Type Severity Reaction Status Date / Time No Known Allergies Allergy Verified 02/22/22 16:29 Review of Systems Constitutional: Constitutional: Reports no additional constitutional complaints, Denies chills, Denies fever(s) and Denies night sweats Eyes: Eyes: Reports no additional eye complaints, Denies blurry vision, Denies change in vision, Denies diplopia, Denies eye discharge, Denies loss of vision and Denies eye pain ENT: Denies dizziness Cardiovascular: Cardiovascular: Reports no additional cardiovascular complaints, Denies chest pain, Denies lightheadedness, Denies Loss of Consciousness and Denies dyspnea Respiratory: Respiratory: Reports no additional respiratory complaints and Denies dyspnea Gastrointestinal: Gastrointestinal: Reports no additional gastrointestinal complaints, Denies abdominal pain, Denies melena, Denies hematochezia, Denies change in bowel habits and Denies change in stool character Genitourinary: Genitourinary: Reports no additional male genitourinary complaints, Denies hematuria, Denies oliguria, Denies difficulty urinating, Denies dysuria, Denies urinary frequency, Denies urinary hesitancy, Denies urinary incontinence and Denies urinary urgency Musculoskeletal: Musculoskeletal: Reports no additional musculoskeletal complaints, Denies numbness and Denies tingling Neurologic: Denies dizziness, Denies loss of vision, Denies numbness and Denies tingling Psychiatric: Psychiatric: Reports no additional psychiatric complaints Endocrine: Endocrine: Reports no additional endocrine complaints Hematologic/Lymphatic: Hematologic/Lymphatic: Reports no additional hematologic/lymphatic complaints Allergic/Immunologic: Allergic/Immunologic: Reports no additional allergic/immunologic complaints [facility] Past Medical History Attestation statement: The following information was validated with the patient. Source: old records reviewed and nursing notes reviewed Medical History Alcohol abuse Schizoaffective disorder, bipolar type Social History Social History Household Members: Family Housing: House Do you presently have visiting nurse or other home services: No Alcohol intake: current Alcohol intake frequency: a few times a week Alcohol type: beer Patient Tobacco Use Status: Current everyday Tobacco user Tobacco use type: Cigarette Smoked in Last 30 Days: No e-Cigarette/Vaping Use: Currently Using Second Hand Smoke Exposure: No Use of substances other than those prescribed or required for medical reasons: No Substance Use Type: Marijuana Advance Directives: No Advance Directives Information Provided: Yes service: No Sexual orientation: Did not discuss Physical Exam ED Vital Signs: Vital Signs - 24 hr 03/23/23 18:16 Temperature 98.7 F Pulse Rate 91 Respiratory Rate 18 Blood Pressure 132/92 H Pulse Oximetry 98 Oxygen Delivery Method Room Air BMI result Body Mass Index 23.0 Const General: cooperative, no acute distress, alert and awake Nutritional Appearance: well nourished Orientation/consciousness: patient oriented x3 Limitations: no limitations HENMT Head: Yes normal to inspection and Yes atraumatic Ears: hearing grossly normal bilaterally and external ears normal General nose exam: Normal external nose present, no nasal discharge noted and no epistaxis Face and sinus: Yes normal facial exam, No abrasion and No laceration Mouth: Normal oral and palatal mucosa present, no drooling and no muffled voice Eyes General: appearance normal, both eyes and all related structures Periorbital: periorbital findings normal Eyelids: Yes eyelids normal Conjunctivae: conjunctivae normal Pupils: Equal, round and reactive pupils present EOM: EOMs intact bilaterally Neck Neck: Yes normal visual inspection, Yes full ROM and Yes no lymphadenopathy Chest Chest palpation & inspection: normal inspection of the chest Resp Effort & Inspection: normal respiratory effort and able to speak in complete sentences Auscultation: clear to auscultation bilaterally Cardio Rate: regular rate Rhythm: regular rhythm GI Inspection: Yes normal to inspection Neuro General: patient oriented x3 and moves all extremities Cranial nerves: Yes Equal, round and reactive pupils present Cognition (Neuro): normal cognition Motor exam (neuro): 5/5 motor strength present throughout Sensory Exam: Normal double simultaneous stimulation for sensation Coordination: [id number] test normal Extrem General: Yes normal to inspection, Yes full ROM and Yes capillary refill normal Psych Appearance: grossly normal Mental Status: mental status grossly normal Affect: normal affect Attitude: cooperative Thought process: Normal thought process present Thought content: Normal thought content present Insight: Good insight present (Psych) Medical Decision Making Medical Decision Making MDM Narrative: Patient is a 23 year old assigned male at with a history of schizoaffective disorder presenting to the emergency department today after increased aggression and refusing to take his medication. Patient's physical exam was unremarkable. Patient's blood work was unremarkable. Patient's EKG was unremarkable. I explained my physical exam findings as well as all test results to the patient. I answered all questions asked by the patient. Patient is on a section 12. Patient is awaiting evaluation by CARE Team. -care team evaluated the patient, patient is very decompensated, not taking his medications, patient will be going inpatient likely here at [facility] Differential Diagnosis Differential Diagnoses: The differential diagnosis associated with the presentation includes psychosis Lab Data MDM Lab Attestation statement: I reviewed the patient's lab results. 03/23/23 18:38 03/23/23 18:38 Labs: Lab Results 03/23/23 03/23/23 03/23/23 Range/Units 18:38 18:38 18:38 WBC 7.1 (4.8-10.8) X10*3/uL RBC 4.68 (4.60-5.80) X10*6/uL Hgb 13.5 L (14.0-18.0) g/dl Hct 41.3 L (42.0-52.0) % MCV 88.2 (80.0-98.0) fL MCH 28.8 (27.0-33.0) pg MCHC 32.7 (31.0-36.0) g/dl RDW 12.9 (11.0-16.0) % Plt Count 328 (160-400) X10*3/uL MPV 9.7 (9.4-12.4) fL Immature Gran % (Auto) 0.3 (0.0-0.4) % Neut % (Auto) 62.9 (45-73) % Lymph % (Auto) 26.2 (20-40) % Mcclain % (Auto) 7.3 (2-11) % Eos % (Auto) 2.7 (0-4) % Baso % (Auto) 0.6 (0-2) % Lymph # (Auto) 1.9 (1.2-4.9) X10*3/uL Mcclain # (Auto) 0.5 (0.1-1.2) X10*3/uL Eos # (Auto) 0.2 (0.0-0.4) X10*3/uL Baso # (Auto) 0.0 (0.0-0.2) X10*3/uL Abs Immat Gran (auto) 0.02 (0.00-0.03) X10*3/uL Absolute Neuts (auto) 4.5 (2.0-8.3) x10*3/uL Absolute Nucleated RBC 0.000 (0.0-0.012) X10*3/uL Nucleated RBC % (auto) 0.0 (0.0-0.2) /100WBC Sodium 140 (135-145) mmol/L Potassium 4.2 (3.3-5.1) mmol/L Chloride 107 (96-108) mmol/L Carbon Dioxide 24 (22-29) mmol/L Anion Gap 13 (12-20) BUN 8 L (9-16) mg/dL Creatinine 0.95 (0.5-1.4) mg/dL Estim Creat Clear Calc 125.8 Estimated GFR > 60 Random Glucose 83 (60-115) mg/dL Calcium 9.9 (8.4-10.2) mg/dL Total Bilirubin 0.3 (0.0-1.0) mg/dL AST 43 H (5-37) U/L ALT 97 H (0-40) U/L Alkaline Phosphatase 65 (39-117) U/L Total Protein 7.1 (6.5-8.0) g/dL Albumin 4.7 (3.5-5.0) g/dL Urine Color Urine Appearance Urine pH (5.0-9.0) Ur Specific [place] (1.005-1.025) Urine Protein (Neg-Trace) mg/dL Urine Glucose (UA) (Negative) mg/dL Urine Ketones (Negative) mg/dL Urine Blood (Negative) Urine Nitrite (Negative) Ur Leukocyte Esterase (Negative) Salicylates < 5.0 L (15-30) mg/dL Urine Opiates Screen (Not Detect) Urine Fentanyl Screen (Not Detect) Acetaminophen < 17 (<30) mcg/mL Ur Barbiturates Screen (Not Detect) Ur Phencyclidine Scrn (Not Detect) Ur Amphetamines Screen (Not Detect) U Benzodiazepines Scrn (Not Detect) Urine Cocaine Screen (Not Detect) U Marijuana (THC) Screen (Not Detect) Ethyl Alcohol 20 mg/dL COVID-19 (CATHERINE) Negative (Negative) COVID-19 Clin Com See Note 03/23/23 03/23/23 Range/Units 18:46 18:46 WBC (4.8-10.8) X10*3/uL RBC (4.60-5.80) X10*6/uL Hgb (14.0-18.0) g/dl Hct (42.0-52.0) % MCV (80.0-98.0) fL MCH (27.0-33.0) pg MCHC (31.0-36.0) g/dl RDW (11.0-16.0) % Plt Count (160-400) X10*3/uL MPV (9.4-12.4) fL Immature Gran % (Auto) (0.0-0.4) % Neut % (Auto) (45-73) % Lymph % (Auto) (20-40) % [place]clain % (Auto) (2-11) % Eos % (Auto) (0-4) % Baso % (Auto) (0-2) % Lymph # (Auto) (1.2-4.9) X10*3/uL [place] # (Auto) (0.1-1.2) X10*3/uL Eos # (Auto) (0.0-0.4) X10*3/uL Baso # (Auto) (0.0-0.2) X10*3/uL Abs Immat Gran (auto) (0.00-0.03) X10*3/uL Absolute Neuts (auto) (2.0-8.3) x10*3/uL Absolute Nucleated RBC (0.0-0.012) X10*3/uL Nucleated RBC % (auto) (0.0-0.2) /100WBC Sodium (135-145) mmol/L Potassium (3.3-5.1) mmol/L Chloride (96-108) mmol/L Carbon Dioxide (22-29) mmol/L Anion Gap (12-20) BUN (9-16) mg/dL Creatinine (0.5-1.4) mg/dL Estim Creat Clear Calc Estimated GFR Random Glucose (60-115) mg/dL Calcium (8.4-10.2) mg/dL Total Bilirubin (0.0-1.0) mg/dL AST (5-37) U/L ALT (0-40) U/L Alkaline Phosphatase (39-117) U/L Total Protein (6.5-8.0) g/dL Albumin (3.5-5.0) g/dL Urine Color Yellow Urine Appearance Clear Urine pH 5.5 (5.0-9.0) Ur Specific [place] 1.020 (1.005-1.025) Urine Protein Trace (Neg-Trace) mg/dL Urine Glucose (UA) Negative (Negative) mg/dL Urine Ketones Trace (Negative) mg/dL Urine Blood Negative (Negative) Urine Nitrite Negative (Negative) Ur Leukocyte Esterase Negative (Negative) Salicylates (15-30) mg/dL Urine Opiates Screen Not Detected (Not Detect) Urine Fentanyl Screen Not Detected (Not Detect) Acetaminophen (<30) mcg/mL Ur Barbiturates Screen Not Detected (Not Detect) Ur Phencyclidine Scrn Not Detected (Not Detect) Ur Amphetamines Screen Not Detected (Not Detect) U Benzodiazepines Scrn Not Detected (Not Detect) Urine Cocaine Screen Not Detected (Not Detect) U Marijuana (THC) Screen POSITIVE H (Not Detect) Ethyl Alcohol mg/dL COVID-19 (CATHERINE) (Negative) COVID-19 Clin Com Independent Interpretation I performed an independent interpretation of an: EKG Interpretation: Vent. Rate: 076 BPM ? ? Atrial Rate: 076 BPM P-R Int: 172 ms? QRS Dur: 086 ms QT Int: 354 ms ? ? ? P-R-T Axes: 049 060 028 degrees QTc Int: 398 ms ? Normal sinus rhythm Normal ECG When compared with ECG of 10-MAR-2023 16:29, No significant change was found DD/ 1940 Discharge Plan Discharge Clinical Impression: Chronic schizophrenia Patient Disposition: Still a Patient Prescriptions: No Action diphenhydramine HCl 25 mg Capsule 50 mg PO BEDTIME PRN (Reason: Insomnia) 30 Days Qty: 60 0RF chlorpromazine 25 mg Tablet 50 mg PO Q4H PRN (Reason: agitation) 30 Days Qty: 30 0RF lithium carbonate 450 mg Tablet Extended Release 900 mg PO BEDTIME 30 Days Qty: 60 0RF olanzapine 20 mg tablet 20 mg PO BEDTIME 30 Days Qty: 30 0RF melatonin 3 mg Tablet 3 mg PO BEDTIME PRN (Reason: insomnia) 30 Days Qty: 30 0RF hydroxyzine HCl 25 mg Tablet 25 mg PO Q6H PRN (Reason: Anxiety) 30 Days Qty: 60 0RF Interventions: [place]-Suicide Risk Severity Scale Last Done: 03/23/23 18:29
--- NOTE | 2023-03-23 18:53 | ECG_ITS ---
Test Reason : MEDICAL CLEARENCE Blood Pressure : / mmHG Vent. Rate : 076 BPM Atrial Rate : 076 BPM P-R Int : 172 ms QRS Dur : 086 ms QT Int : 354 ms P-R-T Axes : 049 060 028 degrees QTc Int : 398 ms Normal sinus rhythm Normal ECG When compared with ECG of 10-MAR-2023 16:29, No significant change was found Referred By: Lor Avila Electronically Signed By:URSULA CRUM MD
[2023-03-23 19:09] LABS: Acetaminophen LAB < 17 mcg/mL (<30); Alanine Aminotransferase 97 U/L (0-40); Albumin Level 4.7 g/dL (3.5-5.0); Alkaline Phosphatase 65 U/L (39-117); Anion Gap 13 (12-20); Aspartate Amino Transferase 43 U/L (5-37); Bilirubin Total 0.3 mg/dL (0.0-1.0); Blood Urea Nitrogen 8 mg/dL (9-16); Calcium 9.9 mg/dL (8.4-10.2); Carbon Dioxide 24 mmol/L (22-29); Chloride 107 mmol/L (96-108); Creatinine Clr Calc Pharmacy 125.8; Estimated Glomerular Filt Rate > 60; Ethanol 20 mg/dL; Glucose Random 83 mg/dL (60-115); Potassium 4.2 mmol/L (3.3-5.1); Salicylate < 5.0 mg/dL (15-30); Sodium 140 mmol/L (135-145); Total Protein 7.1 g/dL (6.5-8.0)
[2023-03-23 19:11] LABS: Appearance Urine Clear; Color Urine Yellow; Glucose Urine UA Negative (Negative); Leukocyte Esterase Urine Negative (Negative); Nitrite Urine Negative (Negative); PH 5.5 (5.0-9.0); Urine Blood Negative (Negative); Urine Ketones Trace mg/dL (Negative); Urine Protein Trace mg/dL (Neg-Trace)
[2023-03-23 19:11] LABS: COVID-19 Test Negative (Negative); IDNOW Serial# 08D9AD1C
[2023-03-23 19:20] LABS: Amphetamine Screen Urine Not Detected (Not Detect); Barbiturates, Urine Not Detected (Not Detect); Benzodiazepines Screen Urine Not Detected (Not Detect); Cannabinoid Screen Urine POSITIVE (Not Detect); Cocaine Screen Urine Not Detected (Not Detect); Fentanyl, urine Not Detected (Not Detect); Opiate Screen Urine Not Detected (Not Detect); Phencyclidine Screen Urine Not Detected (Not Detect)
[2023-03-23] MEDS: diphenhydrAMINE HCL 25 MG CAPSULE 50 MG PO (23:04)
[2023-03-23] MEDS: Melatonin 3 MG TABLET PO (23:04)
[2023-03-23] MEDS: Lithium Carbonate ER 450 MG TABLET.ER 900 MG PO (23:04)
[2023-03-23] MEDS: OLANZapine 10 MG TABLET 20 MG PO (23:05)
--- NOTE | 2023-03-23 23:55 | PC.NURSE ---
Patient is in bed appears sleeping, no distress observed/reported, behavior non concerning, showered before going to bed, medication compliant, VSS, thought content manic without hostility, engaged well with care team, labs completed/resulted, disposition is section 12 inpatient bed search, will continue to monitor.
[2023-03-24 06:31] VITALS: RESP 14
--- NOTE | 2023-03-24 09:20 | PC.NURSE ---
Pt woke, used Bathroom, 2 sandwiches and 2 milks, Back to Room. Reports he's been working hard .
[2023-03-24 09:32] VITALS: BP 116/78; PULSE 92; RESP 16; O2SAT 99
[2023-03-24] MEDS: chlorproMAZINE HCl 25 MG TABLET 50 MG PO ×2 (09:34→15:10)
--- NOTE | 2023-03-24 09:41 | PC.NURSE ---
Pt reports having arguments at home. He says he has been taking his medications. He claims he likes where he lives. He denies SI, HI and AVH at this time.
--- NOTE | 2023-03-24 10:03 | PC.NURSE ---
Call from Mother. Phone given to PT to call Mother.
[2023-03-24 10:47] LABS: Lithium 0.65 mmol/L (0.60-1.20)
[2023-03-24 13:30] VITALS: BP 126/60; PULSE 84; RESP 18; TEMP 36.6; O2SAT 96
[2023-03-24 14:54] VITALS: BMI 23.1
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
[2023-03-24 20:00] VITALS: BP 127/71; PULSE 88; RESP 16; TEMP 36.4; O2SAT 97
[2023-03-24] MEDS: OLANZapine 10 MG TABLET 20 MG PO (20:09)
[2023-03-24] MEDS: Lithium Carbonate ER 450 MG TABLET.ER 900 MG PO (20:09)
[2023-03-24] MEDS: diphenhydrAMINE HCL 25 MG CAPSULE 50 MG PO (20:10)
[2023-03-24] MEDS: Melatonin 3 MG TABLET PO (20:12)
[2023-03-25 08:44] LABS: Alanine Aminotransferase 84 U/L (0-40); Albumin Level 4.2 g/dL (3.5-5.0); Alkaline Phosphatase 52 U/L (39-117); Anion Gap 12 (12-20); Aspartate Amino Transferase 40 U/L (5-37); Bilirubin Total 0.4 mg/dL (0.0-1.0); Blood Urea Nitrogen 11 mg/dL (9-16); Calcium 10.2 mg/dL (8.4-10.2); Carbon Dioxide 24 mmol/L (22-29); Chloride 108 mmol/L (96-108); Cholesterol 170 mg/dL; Creatinine Clr Calc Pharmacy 133.4; Estimated Glomerular Filt Rate > 60; Glucose Fasting 75 mg/dL (60-99); HDL Cholesterol 44 mg/dL; LDL Cholesterol Calculated 101 mg/dl; Sodium 139 mmol/L (135-145); Total Protein 6.4 g/dL (6.5-8.0); Triglycerides 128 mg/dL
[2023-03-25 09:39] VITALS: BP 123/81; PULSE 97; RESP 18; TEMP 36.5; O2SAT 99
--- NOTE | 2023-03-25 09:42 | HO.PSYADMNOT ---
[facility] Date of Service: 03/25/23 Chief Complaint: psychosis Sources of Information: patient interviewed, chart reviewed and crisis/core team assessment reviewed HPI Subjective Notes: Conditional Voluntary Narrative: The patient is a 23-year-old male, single, with no children, currently unemployed, living with his family grandmother, mother and mother's boyfriend with good social support referred from the emergency room for exacerbation of psychosis. The patient carries a diagnosis of schizophrenia and he was recently discharged from this hospital. According to the crisis assessment, the patient had a verbal altercation with his mother and crisis was called. According to the crisis assessment, the patient reported that he was been abducted by aliens, his life work is to exposed these facts. According to the crisis assessment, he had been also more irritable and violent, with visual hallucinations auditory hallucinations and nonsensical behavior. 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 He refused to elaborate regarding the aliens. He stated that he had an argument with his mum the night of the admission to the emergency room and he called crisis. He was medicated with Thorazine on the emergency room. We will try to gather collateral information, the patient is very well-versed on the legal status and he is willing to continue treatment. He had been easily redirectable in the unit and in this moment. Past Psychiatric History: Psychiatrically hospitalized January 2022 at [place] and other admissions for psychosis at psychiatric unit. According to the patient has at least 5 psych. iatric admissions Possibly psychiatric hospitalization february 2022 Some traumatic events in childhood relating to living with his father who is a combination of bipolar and antisocial. Patient has had several years in his 20's of trouble holding down a job with what seems to be relational conflicts with either peers or the boss. Some mild low level alevism preoccupation over the past 3 years in early but mother says nothing out of the ordinary and was only in December 2021 that his obsessive thinking and delusional ideas intensified and patient had manic symptoms. Med trials: Risperdal plus Depakote: No effect per patient (discharged on these 2 meds January 2022) Zyprexa: short trial; not sure effect Medical Evaluation Reviewed: Yes PMFSH Medical History Alcohol abuse Schizoaffective disorder, bipolar type Family History: Father: bipolar/antisocial Social History: Did not graduate high school and only completed the 9th grade. He says he does did not fit in. 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, staying at a friend's house Substance History: Reports sporadic use of alcohol tobacco, and cannabis Trauma History: Childhood trauma from living with his father Diagnostics Vital Signs (24Hr): Vital Signs - 24 hr 03/24/23 13:30 03/24/23 20:00 03/25/23 09:39 Temperature 97.9 F 97.5 F 97.7 F Pulse Rate 84 88 97 Respiratory Rate 18 16 18 Blood Pressure 126/60 127/71 123/81 Pulse Oximetry 96 97 99 Oxygen Delivery Method Room Air Room Air BMI result Body Mass Index 23.1 Labs 03/23/23 18:38 03/25/23 08:15 Labs: Laboratory Results - last 48 hr 03/23/23 03/23/23 03/23/23 18:38 18:38 18:38 WBC 7.1 RBC 4.68 Hgb 13.5 L Hct 41.3 L MCV 88.2 MCH 28.8 MCHC 32.7 RDW 12.9 Plt Count 328 MPV 9.7 Immature Gran % (Auto) 0.3 Neut % (Auto) 62.9 Lymph % (Auto) 26.2 [place] % (Auto) 7.3 Eos % (Auto) 2.7 Baso % (Auto) 0.6 Lymph # (Auto) 1.9 [place] # (Auto) 0.5 Eos # (Auto) 0.2 Baso # (Auto) 0.0 Abs Immat Gran (auto) 0.02 Absolute Neuts (auto) 4.5 Absolute Nucleated RBC 0.000 Nucleated RBC % (auto) 0.0 Sodium 140 Potassium 4.2 Chloride 107 Carbon Dioxide 24 Anion Gap 13 BUN 8 L Creatinine 0.95 Estim Creat Clear Calc 125.8 Estimated GFR > 60 Random Glucose 83 Fasting Glucose Calcium 9.9 Total Bilirubin 0.3 AST 43 H ALT 97 H Alkaline Phosphatase 65 Total Protein 7.1 Albumin 4.7 Triglycerides Cholesterol LDL Cholesterol, Calc HDL Cholesterol Urine Color Urine Appearance Urine pH Ur Specific [place] Urine Protein Urine Glucose (UA) Urine Ketones Urine Blood Urine Nitrite Ur Leukocyte Esterase Salicylates < 5.0 L Urine Opiates Screen Urine Fentanyl Screen Acetaminophen < 17 Ur Barbiturates Screen Ur Phencyclidine Scrn Ur Amphetamines Screen U Benzodiazepines Scrn [place] Urine Cocaine Screen U Marijuana (THC) Screen Ethyl Alcohol 20 COVID-19 (CATHERINE) Negative COVID-19 Clin Com See Note 03/23/23 03/23/23 03/24/23 18:46 18:46 10:27 WBC RBC Hgb Hct MCV MCH MCHC RDW Plt Count MPV Immature Gran % (Auto) Neut % (Auto) Lymph % (Auto) [place] % (Auto) Eos % (Auto) Baso % (Auto) Lymph # (Auto) [place] # (Auto) Eos # (Auto) Baso # (Auto) Abs Immat Gran (auto) Absolute Neuts (auto) Absolute Nucleated RBC Nucleated RBC % (auto) Sodium Potassium Chloride Carbon Dioxide Anion Gap BUN Creatinine Estim Creat Clear Calc Estimated GFR Random Glucose Fasting Glucose Calcium Total Bilirubin AST ALT Alkaline Phosphatase Total Protein Albumin Triglycerides Cholesterol LDL Cholesterol, Calc HDL Cholesterol Urine Color Yellow Urine Appearance Clear Urine pH 5.5 Ur Specific [place] 1.020 Urine Protein Trace Urine Glucose (UA) Negative Urine Ketones Trace Urine Blood Negative Urine Nitrite Negative Ur Leukocyte Esterase Negative Salicylates Urine Opiates Screen Not Detected Urine Fentanyl Screen Not Detected Acetaminophen Ur Barbiturates Screen Not Detected Ur Phencyclidine Scrn Not Detected Ur Amphetamines Screen Not Detected U Benzodiazepines Scrn Not Detected [place] 0.65 Urine Cocaine Screen Not Detected U Marijuana (THC) Screen POSITIVE H Ethyl Alcohol COVID-19 (CATHERINE) COVID-19 [employer] Com 03/25/23 08:15 WBC RBC Hgb Hct MCV MCH MCHC RDW Plt Count MPV Immature Gran % (Auto) Neut % (Auto) Lymph % (Auto) [place] % (Auto) Eos % (Auto) Baso % (Auto) Lymph # (Auto) [place] # (Auto) Eos # (Auto) Baso # (Auto) Abs Immat Gran (auto) Absolute Neuts (auto) Absolute Nucleated RBC Nucleated RBC % (auto) Sodium 139 Potassium 5.0 Chloride 108 Carbon Dioxide 24 Anion Gap 12 BUN 11 Creatinine 0.90 Estim Creat Clear Calc 133.4 Estimated GFR > 60 Random Glucose Fasting Glucose 75 Calcium 10.2 Total Bilirubin 0.4 AST 40 H ALT 84 H Alkaline Phosphatase 52 Total Protein 6.4 L Albumin 4.2 Triglycerides 128 Cholesterol 170 LDL Cholesterol, Calc 101 HDL Cholesterol 44 Urine Color Urine Appearance Urine pH Ur Specific [place] Urine Protein Urine Glucose (UA) Urine Ketones Urine Blood Urine Nitrite Ur Leukocyte Esterase Salicylates Urine Opiates Screen Urine Fentanyl Screen Acetaminophen Ur Barbiturates Screen Ur Phencyclidine Scrn Ur Amphetamines Screen U Benzodiazepines Scrn [place] Urine Cocaine Screen U Marijuana (THC) Screen Ethyl Alcohol COVID-19 (CATHERINE) COVID-19 Clin Com Meds/Allergies Allergies Allergies Allergy/AdvReac Type Severity Reaction Status Date / Time No Known Allergies Allergy Verified 02/22/22 16:29 Mental Status Exam Mental Status Exam Patient Appearance: Appropriate Patient Orientation: Person, Place, Time and Situation Level of Consciousness: Awake and Appropriate Patient Behavior: Guarded and Passive Mood Description: Calm Affect Description: Constricted Patient Cognition Impaired: No Ability to Follow Directions: Good Speech Pattern: Clear Hallucinations: None Delusions: Paranoid Ideation and Ideas of Reference Thought Process: Evasive Thought Content: positive for [place] and positive for Poverty of Content Judgement: Poor Assessment & Plan Assessment & Plan (1) Chronic schizophrenia: Status: Acute Code(s): F20.9 - Schizophrenia, unspecified Plan The patient is an young adult male with a prior history of schizophrenia who was brought into the facility for delusion see if thoughts, agitation and possible noncompliance. The patient was assessed by the crisis team and needed to this facility for psychiatric stabilization. Plan 1. Gather collateral information. 2. Keep on 15 minutes checks. 3. Continue with psychotropics as prescribed. 4. We will continue with medical workout. 5. Reassessment with results Patient educated on: diagnosis and therapeutic strategies Guardian/Caregiver educated on: diagnosis Informed Consent: further education needed Reason for continued inpatient stay Substantial Risk for: inability to function, rapid decompensation and med/psych decompensation Statement Statement: I have reviewed the history and physical and performed a pertinent examination on my patient. No changes have occurred unless specified. If the History and Physical was not performed prior to admission, the Hospitalist's service will be consulted for completing the admission physical. Time Spent With Patient Time: Total time managing care of this patient today __45__ minutes.
[2023-03-25] MEDS: chlorproMAZINE HCl 25 MG TABLET 50 MG PO ×2 (14:36→19:16)
[2023-03-25 20:35] VITALS: BP 121/75; PULSE 96; RESP 18; O2SAT 100
[2023-03-25] MEDS: OLANZapine 10 MG TABLET 20 MG PO (20:44)
[2023-03-25] MEDS: diphenhydrAMINE HCL 25 MG CAPSULE 50 MG PO (20:44)
[2023-03-25] MEDS: Melatonin 3 MG TABLET PO (20:44)
[2023-03-25] MEDS: Lithium Carbonate ER 450 MG TABLET.ER 900 MG PO (20:44)
[2023-03-26 08:55] VITALS: BP 116/66; PULSE 83; RESP 18; TEMP 36.7; O2SAT 98
[2023-03-26] MEDS: chlorproMAZINE HCl 25 MG TABLET 50 MG PO ×2 (08:59→16:16)
--- NOTE | 2023-03-26 14:01 | HO.PSYCHPN ---
Subjective Subjective Date of Service: 03/26/23 Reason For Visit: psychosis Subjective Notes: Conditional Voluntary Interim History: Pt reports everything is going good! When asked about reason for this admission, he states that's confidential information. 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 Pt reports that because this is highly classified information, [facility] will not corroborate that he is involved. He reports he often sees a male which he has not seen recently and reports this is the person from the [facility]. He denies SI/HI. When asked about VH/AH- he denies but clearly internally preoccupied. Per nursing, pt has been pleasant, taking combination of olanzapine and lithium. No behavioral concerns. Mental Status Exam Mental Status Exam Narrative: Appearance:casually groomed, good hygiene, in NAD Behavior: cooperative Psychomotor: no agitation or retardation noted Speech: clear, normal rate/rhythm/volume, spontaneous TP: linear TC: paranoid ideas of [facility] Mood: very good Affect: constricted SI: denies HI: denies VH/AH: on and off delusions: related to [facility] work Insight/judgment: fair x 2. Memory/cog: alert, oriented x 3 not to situation. Diagnostics Vital Signs (24Hr): Vital Signs - 24 hr 03/25/23 20:35 03/26/23 08:55 Temperature 98.1 F Pulse Rate 96 83 Respiratory Rate 18 18 Blood Pressure 121/75 116/66 Pulse Oximetry 100 98 Oxygen Delivery Method Room Air Room Air BMI result Body Mass Index 23.1 Labs 03/23/23 18:38 03/25/23 08:15 Labs: Laboratory Results - last 48 hr 03/25/23 08:15 Sodium 139 Potassium 5.0 Chloride 108 Carbon Dioxide 24 Anion Gap 12 BUN 11 Creatinine 0.90 Estim Creat Clear Calc 133.4 Estimated GFR > 60 Fasting Glucose 75 Calcium 10.2 Total Bilirubin 0.4 AST 40 H ALT 84 H Alkaline Phosphatase 52 Total Protein 6.4 L Albumin 4.2 Triglycerides 128 Cholesterol 170 LDL Cholesterol, Calc 101 HDL Cholesterol 44 Medications Medications Current Medications Acetaminophen (Acetaminophen 325 Mg Tablet) 650 mg PO Q6H PRN PRN Reason: Headache/Pain Mild Scale (1-3) Al Hydroxide/Mg Hydroxide (Magnesium Hydrox/Alum Hydrox 30 Ml Oral.Susp) 30 ml PO Q6H PRN PRN Reason: Heartburn/Nausea Chlorpromazine HCl (Chlorpromazine Hcl 25 Mg Tablet) 50 mg PO Q4H PRN PRN Reason: agitation Last Admin: 03/26/23 08:59 Dose: 50 mg Diphenhydramine HCl (Diphenhydramine Hcl 25 Mg Capsule) 50 mg PO BEDTIME PRN PRN Reason: Insomnia Last Admin: 03/25/23 20:44 Dose: 50 mg Hydroxyzine HCl (Hydroxyzine Hcl 25 Mg Tablet) 25 mg PO Q6H PRN PRN Reason: Anxiety Hydroxyzine HCl (Hydroxyzine Hcl 25 Mg Tablet) 25 mg PO Q6H PRN PRN Reason: Anxiety [place] Carbonate ([place] Carbonate Er 450 Mg Tablet.Er) 900 mg PO BEDTIME VIC Last Admin: 03/25/23 20:44 Dose: 900 mg Magnesium Hydroxide (Milk Of Magnesia 30 Ml Oral.Susp) 30 ml PO DAILY PRN PRN Reason: Constipation Melatonin (Melatonin 3 Mg Tablet) 3 mg PO BEDTIME PRN PRN Reason: insomnia Last Admin: 03/25/23 20:44 Dose: 3 mg Olanzapine (Olanzapine 10 Mg Tablet) 20 mg PO BEDTIME VIC Last Admin: 03/25/23 20:44 Dose: 20 mg Trazodone HCl (Trazodone Hcl 50 Mg Tablet) 50 mg PO BEDTIME [id number] PRN PRN Reason: Insomnia Allergies Allergies Allergy/AdvReac Type Severity Reaction Status Date / Time No Known Allergies Allergy Verified 02/22/22 16:29 Assessment & Plan Assessment & Plan (1) Chronic schizophrenia: Status: Acute Code(s): F20.9 - Schizophrenia, unspecified Plan The patient is an young adult male with a prior history of schizophrenia who was brought into the facility for delusion see if thoughts, agitation and possible noncompliance. The patient was assessed by the crisis team and needed to this facility for psychiatric stabilization. PLAN 6/5- continue current medications. Reason for continued inpatient stay Substantial Risk for: inability to function Time Spent With Patient Time: Total time managing care of this patient today ____ minutes.
[2023-03-26] MEDS: hydrOXYzine HCL 25 MG TABLET PO (18:03)
[2023-03-26] MEDS: OLANZapine 10 MG TABLET 20 MG PO (20:49)
[2023-03-26] MEDS: diphenhydrAMINE HCL 25 MG CAPSULE 50 MG PO (20:49)
[2023-03-26] MEDS: Melatonin 3 MG TABLET PO (20:49)
[2023-03-26] MEDS: Lithium Carbonate ER 450 MG TABLET.ER 900 MG PO (20:49)
[2023-03-26 20:50] VITALS: BP 119/57; PULSE 107; TEMP 36.6; O2SAT 97
[2023-03-27 08:23] VITALS: BP 133/77; PULSE 101; RESP 18; TEMP 36.7; O2SAT 99
[2023-03-27] MEDS: chlorproMAZINE HCl 25 MG TABLET 50 MG PO ×3 (08:24→17:57)
[2023-03-27] MEDS: hydrOXYzine HCL 25 MG TABLET PO (13:53)
[2023-03-27 20:00] VITALS: BP 115/67; PULSE 110; RESP 18; TEMP 36.4; O2SAT 96
[2023-03-27] MEDS: Melatonin 3 MG TABLET PO (20:05)
[2023-03-27] MEDS: diphenhydrAMINE HCL 25 MG CAPSULE 50 MG PO (20:05)
[2023-03-27] MEDS: Lithium Carbonate ER 300 MG TABLET.ER 1200 MG PO (20:05)
[2023-03-27] MEDS: OLANZapine 10 MG TABLET 20 MG PO (20:05)
--- NOTE | 2023-03-27 21:54 | P.PNPSI_ITS ---
Subjective Subjective Date of Service: 03/27/23 Reason For Visit: psychosis Interim History: calm, cooperative. states he is feeling a lot better. sleeping and eating well. 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 agreeable to increase lithium to 1200 mg QHS from 900 mg. per staff, taking thorazine PRNs. no issues. writing letters to nikhil peterson and [facility]. denying Sx. med-compliant. slept about 6 hours. Mental Status Exam Mental Status Exam Narrative: Appearance:casually groomed, good hygiene, in NAD Behavior: cooperative Psychomotor: no agitation or retardation noted Speech: clear, normal rate/rhythm/volume, spontaneous TP: linear TC: no paranoid delusions expressed Mood: a lot better Affect: flexible, full-range SI: none expressed HI: none expressed VH/AH: none expressed Insight/judgment: fair x 2. Diagnostics Vital Signs (24Hr): Vital Signs - 24 hr 03/27/23 08:23 03/27/23 20:00 Temperature 98.0 F 97.5 F Pulse Rate 101 H 110 H Respiratory Rate 18 18 Blood Pressure 133/77 115/67 Pulse Oximetry 99 96 Oxygen Delivery Method Room Air Room Air BMI result Body Mass Index 23.1 Labs 03/23/23 18:38 03/25/23 08:15 Medications Medications Current Medications Acetaminophen (Acetaminophen 325 Mg Tablet) 650 mg PO Q6H PRN PRN Reason: Headache/Pain Mild Scale (1-3) Al Hydroxide/Mg Hydroxide (Magnesium Hydrox/Alum Hydrox 30 Ml Oral.Susp) 30 ml PO Q6H PRN PRN Reason: Heartburn/Nausea Benzocaine (Throat Lozenge, Medicated Lozenge) 1 lozenge MUCOUS MEM Q2H PRN PRN Reason: Sore Throat Chlorpromazine HCl (Chlorpromazine Hcl 25 Mg Tablet) 50 mg PO Q4H PRN PRN Reason: agitation Last Admin: 03/27/23 17:57 Dose: 50 mg Diphenhydramine HCl (Diphenhydramine Hcl 25 Mg Capsule) 50 mg PO BEDTIME PRN PRN Reason: Insomnia Last Admin: 03/27/23 20:05 Dose: 50 mg Hydroxyzine HCl (Hydroxyzine Hcl 25 Mg Tablet) 25 mg PO Q6H PRN PRN Reason: Anxiety Last Admin: 03/27/23 13:53 Dose: 25 mg Hydroxyzine HCl (Hydroxyzine Hcl 25 Mg Tablet) 25 mg PO Q6H PRN PRN Reason: Anxiety [place] Carbonate ([place] Carbonate Er 300 Mg Tablet.Er) 1,200 mg PO BEDTIME VIC Last Admin: 03/27/23 20:05 Dose: 1,200 mg Magnesium Hydroxide (Milk Of Magnesia 30 Ml Oral.Susp) 30 ml PO DAILY PRN PRN Reason: Constipation Melatonin (Melatonin 3 Mg Tablet) 3 mg PO BEDTIME PRN PRN Reason: insomnia Last Admin: 03/27/23 20:05 Dose: 3 mg Olanzapine (Olanzapine 10 Mg Tablet) 20 mg PO BEDTIME VIC Last Admin: 03/27/23 20:05 Dose: 20 mg Trazodone HCl (Trazodone Hcl 50 Mg Tablet) 50 mg PO BEDTIME [id number] PRN PRN Reason: Insomnia Allergies Allergies Allergy/AdvReac Type Severity Reaction Status Date / Time No Known Allergies Allergy Verified 02/22/22 16:29 Assessment & Plan Assessment & Plan (1) Chronic schizophrenia: Status: Acute Code(s): F20.9 - Schizophrenia, unspecified Plan The patient is an young adult male with a prior history of schizophrenia who was brought into the facility for delusion see if thoughts, agitation and possible noncompliance. The patient was assessed by the crisis team and needed to this facility for psychiatric stabilization. PLAN 03/26- continue current medications. 03/27: increase lithium from 900 QHS to 1200 QHS. Reason for continued inpatient stay Substantial Risk for: inability to function and med/psych decompensation Time Spent With Patient Time: Total time managing care of this patient today _25___ minutes.
[2023-03-28] MEDS: Throat Lozenge, Medicated LOZENGE 1 LOZENGE MUCOUS MEM (02:03)
[2023-03-28] MEDS: chlorproMAZINE HCl 25 MG TABLET 50 MG PO ×2 (08:55→15:28)
[2023-03-28 10:00] VITALS: BP 135/76; PULSE 115; RESP 18; TEMP 36.4; O2SAT 98
[2023-03-28] MEDS: hydrOXYzine HCL 25 MG TABLET PO (13:47)
--- NOTE | 2023-03-28 15:38 | HO.PSYCHPN ---
Subjective Subjective Date of Service: 03/28/23 Reason For Visit: psychosis Interim History: ebullient. waiting for the weekend to have his lithium level checked, hoping it will be around 1.0 so he can DC next week. per staff, eating, sleeping, happy. grandiose, delusional. planning to DC once labs are back. Mental Status Exam Mental Status Exam Narrative: Appearance:casually groomed, good hygiene, in NAD Behavior: cooperative Psychomotor: no agitation or retardation noted Speech: clear, normal rate/rhythm/volume, spontaneous TP: linear TC: no paranoid delusions expressed Mood: modestly euphoric Affect: flexible, full-range SI: none expressed HI: none expressed VH/AH: none expressed Insight/judgment: fair x 2. Diagnostics Vital Signs (24Hr): Vital Signs - 24 hr 03/27/23 20:00 03/28/23 10:00 Temperature 97.5 F 97.6 F Pulse Rate 110 H 115 H Respiratory Rate 18 18 Blood Pressure 115/67 135/76 Pulse Oximetry 96 98 Oxygen Delivery Method Room Air Room Air BMI result Body Mass Index 23.1 Labs 03/23/23 18:38 03/25/23 08:15 Medications Medications Current Medications Acetaminophen (Acetaminophen 325 Mg Tablet) 650 mg PO Q6H PRN PRN Reason: Headache/Pain Mild Scale (1-3) Al Hydroxide/Mg Hydroxide (Magnesium Hydrox/Alum Hydrox 30 Ml Oral.Susp) 30 ml PO Q6H PRN PRN Reason: Heartburn/Nausea Benzocaine (Throat Lozenge, Medicated Lozenge) 1 lozenge MUCOUS MEM Q2H PRN PRN Reason: Sore Throat Last Admin: 03/28/23 02:03 Dose: 1 lozenge Chlorpromazine HCl (Chlorpromazine Hcl 25 Mg Tablet) 50 mg PO Q4H PRN PRN Reason: agitation Last Admin: 03/28/23 15:28 Dose: 50 mg Diphenhydramine HCl (Diphenhydramine Hcl 25 Mg Capsule) 50 mg PO BEDTIME PRN PRN Reason: Insomnia Last Admin: 03/27/23 20:05 Dose: 50 mg Hydroxyzine HCl (Hydroxyzine Hcl 25 Mg Tablet) 25 mg PO Q6H PRN PRN Reason: Anxiety Last Admin: 03/28/23 13:47 Dose: 25 mg Hydroxyzine HCl (Hydroxyzine Hcl 25 Mg Tablet) 25 mg PO Q6H PRN PRN Reason: Anxiety [place] Carbonate ([place] Carbonate Er 300 Mg Tablet.Er) 1,200 mg PO BEDTIME VIC Last Admin: 03/27/23 20:05 Dose: 1,200 mg Magnesium Hydroxide (Milk Of Magnesia 30 Ml Oral.Susp) 30 ml PO DAILY PRN PRN Reason: Constipation Melatonin (Melatonin 3 Mg Tablet) 3 mg PO BEDTIME PRN PRN Reason: insomnia Last Admin: 03/27/23 20:05 Dose: 3 mg Olanzapine (Olanzapine 10 Mg Tablet) 20 mg PO BEDTIME VIC Last Admin: 03/27/23 20:05 Dose: 20 mg Trazodone HCl (Trazodone Hcl 50 Mg Tablet) 50 mg PO BEDTIME [id number] PRN PRN Reason: Insomnia Allergies Allergies Allergy/AdvReac Type Severity Reaction Status Date / Time No Known Allergies Allergy Verified 02/22/22 16:29 Assessment & Plan Assessment & Plan (1) Chronic schizophrenia: Status: Acute Code(s): F20.9 - Schizophrenia, unspecified Plan The patient is an young adult male with a prior history of schizophrenia who was brought into the facility for delusion see if thoughts, agitation and possible noncompliance. The patient was assessed by the crisis team and needed to this facility for psychiatric stabilization. PLAN 03/26- continue current medications. 03/27: increase lithium from 900 QHS to 1200 QHS. 03/28: continues in an extremely good humor. sleeping, though. no change in mgmt. Reason for continued inpatient stay Substantial Risk for: rapid decompensation Time Spent With Patient Time: Total time managing care of this patient today ____ minutes.
[2023-03-28 19:40] VITALS: BP 114/81; PULSE 100; RESP 16; TEMP 36.4; O2SAT 99
[2023-03-28] MEDS: diphenhydrAMINE HCL 25 MG CAPSULE 50 MG PO (20:34)
[2023-03-28] MEDS: Lithium Carbonate ER 300 MG TABLET.ER 1200 MG PO (20:34)
[2023-03-28] MEDS: OLANZapine 10 MG TABLET 20 MG PO (20:34)
[2023-03-28] MEDS: Melatonin 3 MG TABLET PO (20:34)
--- NOTE | 2023-03-28 21:22 | PC.NURSE ---
Florentino is admitted to [facility] for safety, medication reconciliation and stabilization, diagnosis schizophrenia. This evening he has been isolative, denies SI/AVH, med adherent, reports I feel fine. scheduled for possible discharge next week. No behavior issues reported/observed, no medication side effects reported/observed, independent with ADL, ad-figueroa. Agenda level scheduled for 03/31/23. POC as outlined, 15 min unit safety observation.
[2023-03-29] MEDS: traZODone HCL 50 MG TABLET PO (01:23)
[2023-03-29] MEDS: hydrOXYzine HCL 25 MG TABLET PO ×2 (04:21→12:04)
[2023-03-29] MEDS: chlorproMAZINE HCl 25 MG TABLET 50 MG PO ×2 (08:13→14:05)
[2023-03-29 08:20] VITALS: BP 131/64; PULSE 114; RESP 18; TEMP 36.6; O2SAT 99
--- NOTE | 2023-03-29 13:44 | HO.PSYCHPN ---
Subjective Subjective Date of Service: 03/29/23 Reason For Visit: psychosis Interim History: calm, cooperative. up-beat, pleasant. things going well, sleeping, eating, mood good. hoping for DC next sunday. per staff, safe, pacing. pleasant, cooperative. med-compliant. writing letters. napping. using PRNs. poor sleep overnight. Mental Status Exam Mental Status Exam Narrative: Appearance:casually groomed, good hygiene, in NAD Behavior: cooperative Psychomotor: no agitation or retardation noted Speech: clear, normal rate/rhythm/volume, spontaneous TP: linear TC: no paranoid delusions expressed Mood: modestly euphoric Affect: flexible, full-range SI: none expressed HI: none expressed VH/AH: none expressed Insight/judgment: fair x 2. Diagnostics Vital Signs (24Hr): Vital Signs - 24 hr 03/28/23 19:40 03/29/23 08:20 Temperature 97.6 F 97.8 F Pulse Rate 100 114 H Respiratory Rate 16 18 Blood Pressure 114/81 131/64 Pulse Oximetry 99 99 Oxygen Delivery Method Room Air Room Air BMI result Body Mass Index 23.1 Labs 03/23/23 18:38 03/25/23 08:15 Medications Medications Current Medications Acetaminophen (Acetaminophen 325 Mg Tablet) 650 mg PO Q6H PRN PRN Reason: Headache/Pain Mild Scale (1-3) Al Hydroxide/Mg Hydroxide (Magnesium Hydrox/Alum Hydrox 30 Ml Oral.Susp) 30 ml PO Q6H PRN PRN Reason: Heartburn/Nausea Benzocaine (Throat Lozenge, Medicated Lozenge) 1 lozenge MUCOUS MEM Q2H PRN PRN Reason: Sore Throat Last Admin: 03/28/23 02:03 Dose: 1 lozenge Chlorpromazine HCl (Chlorpromazine Hcl 25 Mg Tablet) 50 mg PO Q4H PRN PRN Reason: agitation Last Admin: 03/29/23 08:13 Dose: 50 mg Diphenhydramine HCl (Diphenhydramine Hcl 25 Mg Capsule) 50 mg PO BEDTIME PRN PRN Reason: Insomnia Last Admin: 03/28/23 20:34 Dose: 50 mg Hydroxyzine HCl (Hydroxyzine Hcl 25 Mg Tablet) 25 mg PO Q6H PRN PRN Reason: Anxiety Last Admin: 03/29/23 12:04 Dose: 25 mg Hydroxyzine HCl (Hydroxyzine Hcl 25 Mg Tablet) 25 mg PO Q6H PRN PRN Reason: Anxiety [place] Carbonate ([place] Carbonate Er 300 Mg Tablet.Er) 1,200 mg PO BEDTIME VIC Last Admin: 03/28/23 20:34 Dose: 1,200 mg Magnesium Hydroxide (Milk Of Magnesia 30 Ml Oral.Susp) 30 ml PO DAILY PRN PRN Reason: Constipation Melatonin (Melatonin 3 Mg Tablet) 3 mg PO BEDTIME PRN PRN Reason: insomnia Last Admin: 03/28/23 20:34 Dose: 3 mg Olanzapine (Olanzapine 10 Mg Tablet) 20 mg PO BEDTIME VIC Last Admin: 03/28/23 20:34 Dose: 20 mg Trazodone HCl (Trazodone Hcl 50 Mg Tablet) 50 mg PO BEDTIME MRX1 PRN PRN Reason: Insomnia Last Admin: 03/29/23 01:23 Dose: 50 mg Allergies Allergies Allergy/AdvReac Type Severity Reaction Status Date / Time No Known Allergies Allergy Verified 02/22/22 16:29 Assessment & Plan Assessment & Plan (1) Chronic schizophrenia: Status: Acute Code(s): F20.9 - Schizophrenia, unspecified Plan The patient is an young adult male with a prior history of schizophrenia who was brought into the facility for delusion see if thoughts, agitation and possible noncompliance. The patient was assessed by the crisis team and needed to this facility for psychiatric stabilization. PLAN 03/26- continue current medications. 03/27: increase lithium from 900 QHS to 1200 QHS. 03/28: continues in an extremely good humor. sleeping, though. no change in mgmt. 03/29: sleep poorer last night. remains in a very bright mood. appropriate behaviors. Reason for continued inpatient stay Substantial Risk for: inability to function and rapid decompensation Time Spent With Patient Time: Total time managing care of this patient today _25___ minutes.
[2023-03-29 19:45] VITALS: BP 110/68; PULSE 100; RESP 16; TEMP 36.9; O2SAT 96
[2023-03-29] MEDS: Lithium Carbonate ER 300 MG TABLET.ER 1200 MG PO (21:03)
[2023-03-29] MEDS: OLANZapine 10 MG TABLET 20 MG PO (21:03)
[2023-03-29] MEDS: diphenhydrAMINE HCL 25 MG CAPSULE 50 MG PO (21:03)
[2023-03-29] MEDS: Melatonin 3 MG TABLET PO (21:03)
[2023-03-30] MEDS: traZODone HCL 50 MG TABLET PO (01:06)
[2023-03-30] MEDS: hydrOXYzine HCL 25 MG TABLET PO ×3 (01:06→16:47)
[2023-03-30 06:00] VITALS: BP 132/74; PULSE 98; RESP 16; TEMP 36.8; O2SAT 98
[2023-03-30] MEDS: chlorproMAZINE HCl 25 MG TABLET 50 MG PO ×2 (09:49→15:15)
--- NOTE | 2023-03-30 15:45 | HO.PSYCHPN ---
Subjective Subjective Date of Service: 03/30/23 Reason For Visit: psychosis Interim History: calm, cooperative, pleasant, positive. planning for sunday DC. feeling safe, doing better. per staff, 2/10 anxiety. pacing. listening to music. writing letters. taking PRNs. up at 0200, slept only about 4-5 hours last night. Mental Status Exam Mental Status Exam Narrative: Appearance:casually groomed, good hygiene, in NAD Behavior: cooperative Psychomotor: no agitation or retardation noted Speech: clear, normal rate/rhythm/volume, spontaneous TP: linear TC: no paranoid delusions expressed Mood: modestly euphoric Affect: flexible, full-range SI: none expressed HI: none expressed VH/AH: none expressed Insight/judgment: fair x 2. Diagnostics Vital Signs (24Hr): Vital Signs - 24 hr 03/29/23 19:45 03/30/23 06:00 Temperature 98.4 F 98.2 F Pulse Rate 100 98 Respiratory Rate 16 16 Blood Pressure 110/68 132/74 Pulse Oximetry 96 98 Oxygen Delivery Method Room Air Room Air BMI result Body Mass Index 23.1 Labs 03/23/23 18:38 03/25/23 08:15 Medications Medications Current Medications Acetaminophen (Acetaminophen 325 Mg Tablet) 650 mg PO Q6H PRN PRN Reason: Headache/Pain Mild Scale (1-3) Al Hydroxide/Mg Hydroxide (Magnesium Hydrox/Alum Hydrox 30 Ml Oral.Susp) 30 ml PO Q6H PRN PRN Reason: Heartburn/Nausea Benzocaine (Throat Lozenge, Medicated Lozenge) 1 lozenge MUCOUS MEM Q2H PRN PRN Reason: Sore Throat Last Admin: 03/28/23 02:03 Dose: 1 lozenge Chlorpromazine HCl (Chlorpromazine Hcl 25 Mg Tablet) 50 mg PO Q4H PRN PRN Reason: agitation Last Admin: 03/30/23 15:15 Dose: 50 mg Diphenhydramine HCl (Diphenhydramine Hcl 25 Mg Capsule) 50 mg PO BEDTIME PRN PRN Reason: Insomnia Last Admin: 03/29/23 21:03 Dose: 50 mg Hydroxyzine HCl (Hydroxyzine Hcl 25 Mg Tablet) 25 mg PO Q6H PRN PRN Reason: Anxiety Last Admin: 03/30/23 10:26 Dose: 25 mg Hydroxyzine HCl (Hydroxyzine Hcl 25 Mg Tablet) 25 mg PO Q6H PRN PRN Reason: Anxiety [place] Carbonate ([place] Carbonate Er 300 Mg Tablet.Er) 1,200 mg PO BEDTIME VIC Last Admin: 03/29/23 21:03 Dose: 1,200 mg Magnesium Hydroxide (Milk Of Magnesia 30 Ml Oral.Susp) 30 ml PO DAILY PRN PRN Reason: Constipation Melatonin (Melatonin 3 Mg Tablet) 3 mg PO BEDTIME PRN PRN Reason: insomnia Last Admin: 03/29/23 21:03 Dose: 3 mg Olanzapine (Olanzapine 10 Mg Tablet) 20 mg PO BEDTIME VIC Last Admin: 03/29/23 21:03 Dose: 20 mg Trazodone HCl (Trazodone Hcl 50 Mg Tablet) 50 mg PO BEDTIME MRX1 PRN PRN Reason: Insomnia Last Admin: 03/30/23 01:06 Dose: 50 mg Allergies Allergies Allergy/AdvReac Type Severity Reaction Status Date / Time No Known Allergies Allergy Verified 02/22/22 16:29 Assessment & Plan Assessment & Plan (1) Chronic schizophrenia: Status: Acute Code(s): F20.9 - Schizophrenia, unspecified Plan The patient is an young adult male with a prior history of schizophrenia who was brought into the facility for delusion see if thoughts, agitation and possible noncompliance. The patient was assessed by the crisis team and needed to this facility for psychiatric stabilization. PLAN 03/26- continue current medications. 03/27: increase lithium from 900 QHS to 1200 QHS. 03/28: continues in an extremely good humor. sleeping, though. no change in mgmt. 03/29: sleep poorer last night. remains in a very bright mood. appropriate behaviors. 03/30: only 4-5 hours sleep last night. no change. labs sunday evening (ordered). Reason for continued inpatient stay Substantial Risk for: inability to function and rapid decompensation Time Spent With Patient Time: Total time managing care of this patient today _25___ minutes.
[2023-03-30] MEDS: Throat Lozenge, Medicated LOZENGE 1 LOZENGE MUCOUS MEM (16:17)
[2023-03-30] MEDS: guaiFENesin 200 MG/10 ML 10 ML LIQUID PO (17:10)
[2023-03-30] MEDS: OLANZapine 10 MG TABLET 20 MG PO (20:32)
[2023-03-30] MEDS: Melatonin 3 MG TABLET PO (20:33)
[2023-03-30] MEDS: Lithium Carbonate ER 300 MG TABLET.ER 1200 MG PO (20:33)
[2023-03-30] MEDS: diphenhydrAMINE HCL 25 MG CAPSULE 50 MG PO (20:33)
[2023-03-31] MEDS: guaiFENesin 200 MG/10 ML 10 ML LIQUID PO ×3 (01:28→14:57)
[2023-03-31] MEDS: traZODone HCL 50 MG TABLET PO (01:28)
[2023-03-31 06:00] VITALS: BP 130/78; PULSE 88; RESP 16; TEMP 36.7; O2SAT 98
[2023-03-31] MEDS: chlorproMAZINE HCl 25 MG TABLET 50 MG PO ×2 (08:17→14:57)
[2023-03-31 08:45] LABS: Lithium 0.65 mmol/L (0.60-1.20)
--- NOTE | 2023-03-31 09:16 | P.PNPSI_ITS ---
Subjective Subjective Date of Service: 03/31/23 Reason For Visit: psychosis Subjective Notes: Conditional Voluntary and 3 Day Interim History: Pt reports he is doing very well. He states [facility] no longer seeking his services. He reports he is able to read people's thoughts and knows that most powerful people in the world like [employer]ji [employer] are thanking him for the work he did for the [facility]. 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 Pt expresses relieve knowing that he will not work as much for [facility] anymore. Per nursing, pt sleeping and eating well. No aggression towards self or others. Medication Compliance: Yes Side effects from medications: No Attending Groups: Intermittent Review of Systems Review of Systems Yes all other systems are reviewed and are negative Constitutional: Reports no additional constitutional complaints, Denies chills, Denies fever(s) and Denies night sweats Eyes: Reports no additional eye complaints, Denies blurry vision, Denies change in vision, Denies diplopia, Denies eye discharge, Denies loss of vision and Denies eye pain Denies dizziness Cardiovascular: Reports no additional cardiovascular complaints, Denies chest pa in, Denies lightheadedness, Denies Loss of Consciousness and Denies dyspnea Respiratory: Reports no additional respiratory complaints and Denies dyspnea Gastrointestinal: Reports no additional gastrointestinal complaints, Denies abdominal pain, Denies melena, Denies hematochezia, Denies change in bowel habits and Denies change in stool character Genitourinary: Reports no additional male genitourinary complaints, Denies hemat uria, Denies oliguria, Denies difficulty urinating, Denies dysuria, Denies urinary frequency, Denies urinary hesitancy, Denies urinary incontinence and Denies urinary urgency Musculoskeletal: Reports no additional musculoskeletal complaints, Denies numbness and Denies tingling Denies dizziness, Denies loss of vision, Denies numbness and Denies tingling Psychiatric: Reports no additional psychiatric complaints Endocrine: Reports no additional endocrine complaints Hematologic/Lymphatic: Reports no additional hematologic/lymphatic complaints Allergic/Immunologic: Reports no additional allergic/immunologic complaints Mental Status Exam Mental Status Exam Narrative: Appearance:casually groomed, good hygiene, in NAD Behavior: cooperative Psychomotor: no agitation or retardation noted Speech: clear, normal rate/rhythm/volume, spontaneous TP: linear TC: no paranoid delusions expressed Mood: modestly euphoric Affect: flexible, full-range SI: none expressed HI: none expressed VH/AH: none expressed Insight/judgment: fair x 2. Diagnostics Vital Signs (24Hr): Vital Signs - 24 hr 03/31/23 06:00 Temperature 98.0 F Pulse Rate 88 Respiratory Rate 16 Blood Pressure 130/78 Pulse Oximetry 98 Oxygen Delivery Method Room Air BMI result Body Mass Index 23.1 Labs 03/23/23 18:38 03/25/23 08:15 Labs: Laboratory Results - last 48 hr 03/31/23 08:23 [place] 0.65 Medications Medications Current Medications Acetaminophen (Acetaminophen 325 Mg Tablet) 650 mg PO Q6H PRN PRN Reason: Headache/Pain Mild Scale (1-3) Al Hydroxide/Mg Hydroxide (Magnesium Hydrox/Alum Hydrox 30 Ml Oral.Susp) 30 ml PO Q6H PRN PRN Reason: Heartburn/Nausea Benzocaine (Throat Lozenge, Medicated Lozenge) 1 lozenge MUCOUS MEM Q2H PRN PRN Reason: Sore Throat Last Admin: 03/30/23 16:17 Dose: 1 lozenge Chlorpromazine HCl (Chlorpromazine Hcl 25 Mg Tablet) 50 mg PO Q4H PRN PRN Reason: agitation Last Admin: 03/31/23 08:17 Dose: 50 mg Diphenhydramine HCl (Diphenhydramine Hcl 25 Mg Capsule) 50 mg PO BEDTIME PRN PRN Reason: Insomnia Last Admin: 03/30/23 20:33 Dose: 50 mg Guaifenesin (Guaifenesin 200 Mg/10 Ml 10 Ml Liquid) 10 ml PO Q6H PRN PRN Reason: Cough Last Admin: 03/31/23 07:33 Dose: 10 ml Hydroxyzine HCl (Hydroxyzine Hcl 25 Mg Tablet) 25 mg PO Q6H PRN PRN Reason: Anxiety Last Admin: 03/30/23 16:47 Dose: 25 mg Hydroxyzine HCl (Hydroxyzine Hcl 25 Mg Tablet) 25 mg PO Q6H PRN PRN Reason: Anxiety [place] Carbonate ([place] Carbonate Er 300 Mg Tablet.Er) 1,200 mg PO BEDTIME VIC Last Admin: 06/09/23 20:33 Dose: 1,200 mg Magnesium Hydroxide (Milk Of Magnesia 30 Ml Oral.Susp) 30 ml PO DAILY PRN PRN Reason: Constipation Melatonin (Melatonin 3 Mg Tablet) 3 mg PO BEDTIME PRN PRN Reason: insomnia Last Admin: 03/30/23 20:33 Dose: 3 mg Olanzapine (Olanzapine 10 Mg Tablet) 20 mg PO BEDTIME VIC Last Admin: 03/30/23 20:32 Dose: 20 mg Trazodone HCl (Trazodone Hcl 50 Mg Tablet) 50 mg PO BEDTIME MRX1 PRN PRN Reason: Insomnia Last Admin: 03/31/23 01:28 Dose: 50 mg Allergies Allergies Allergy/AdvReac Type Severity Reaction Status Date / Time No Known Allergies Allergy Verified 02/22/22 16:29 Assessment & Plan Assessment & Plan (1) Chronic schizophrenia: Status: Acute Code(s): F20.9 - Schizophrenia, unspecified Plan The patient is an young adult male with a prior history of schizophrenia who was brought into the facility for delusion see if thoughts, agitation and possible noncompliance. The patient was assessed by the crisis team and needed to this facility for psychiatric stabilization. PLAN 03/26- continue current medications. 03/27: increase lithium from 900 QHS to 1200 QHS. 03/28: continues in an extremely good humor. sleeping, though. no change in mgmt. 03/29: sleep poorer last night. remains in a very bright mood. appropriate behaviors. 03/30: only 4-5 hours sleep last night. no change. labs sunday evening (ordere d). 03/31 continue tx. Reason for continued inpatient stay Substantial Risk for: inability to function Time Spent With Patient Time: Total time managing care of this patient today ____ minutes.
[2023-03-31] MEDS: hydrOXYzine HCL 25 MG TABLET PO ×2 (11:02→20:58)
[2023-03-31] MEDS: Magnesium Hydrox/Alum Hydrox 30 ML ORAL.SUSP PO (15:37)
[2023-03-31] MEDS: OLANZapine 10 MG TABLET 20 MG PO (20:58)
[2023-03-31] MEDS: diphenhydrAMINE HCL 25 MG CAPSULE 50 MG PO (20:58)
[2023-03-31] MEDS: Lithium Carbonate ER 300 MG TABLET.ER 1200 MG PO (20:58)
[2023-03-31] MEDS: Melatonin 3 MG TABLET PO (20:59)
[2023-03-31 21:01] VITALS: RESP 18
[2023-04-01] MEDS: hydrOXYzine HCL 25 MG TABLET PO ×3 (06:48→20:18)
[2023-04-01] MEDS: chlorproMAZINE HCl 25 MG TABLET 50 MG PO ×2 (08:53→17:11)
[2023-04-01 11:34] VITALS: BP 128/71; PULSE 98; RESP 18; TEMP 36.7; O2SAT 99
[2023-04-01] MEDS: Magnesium Hydrox/Alum Hydrox 30 ML ORAL.SUSP PO (12:35)
--- NOTE | 2023-04-01 16:36 | HO.PSYCHPN ---
Subjective Subjective Date of Service: 04/01/23 Reason For Visit: psychosis Subjective Notes: Conditional Voluntary and 3 Day Interim History: Pt continues to report that mood is great. He reports he is thinking of ex girlfriend and thinks he will write letter asking her to give him a second chance. He reports he will do this once he gets home. No SI/HI. Per nursing, pt sleeping and eating well. No aggression towards self or others. Medication Compliance: Yes Review of Systems Review of Systems Yes all other systems are reviewed and are negative Constitutional: Reports no additional constitutional complaints, Denies chills, Denies fever(s) and Denies night sweats Eyes: Reports no additional eye complaints, Denies blurry vision, Denies change in vision, Denies diplopia, Denies eye discharge, Denies loss of vision and Denies eye pain Denies dizziness Cardiovascular: Reports no additional cardiovascular complaints, Denies chest pain, Denies lightheadedness, Denies Loss of Consciousness and Denies dyspnea Respiratory: Reports no additional respiratory complaints and Denies dyspnea Gastrointestinal: Reports no additional gastrointestinal complaints, Denies abdominal pain, Denies melena, Denies hematochezia, Denies change in bowel habits and Denies change in stool character Genitourinary: Reports no additional male genitourinary complaints, Denies hematuria, Denies oliguria, Denies difficulty urinating, Denies dysuria, Denies urinary frequency, Denies urinary hesitancy, Denies urinary incontinence and Denies urinary urgency Musculoskeletal: Reports no additional musculoskeletal complaints, Denies numbness and Denies tingling Denies dizziness, Denies loss of vision, Denies numbness and Denies tingling Psychiatric: Reports no additional psychiatric complaints Endocrine: Reports no additional endocrine complaints Hematologic/Lymphatic: Reports no additional hematologic/lymphatic complaints Allergic/Immunologic: Reports no additional allergic/immunologic complaints Mental Status Exam Mental Status Exam Narrative: Appearance:casually groomed, good hygiene, in NAD Behavior: cooperative Psychomotor: no agitation or retardation noted Speech: clear, normal rate/rhythm/volume, spontaneous TP: linear TC: no paranoid delusions expressed Mood: modestly euphoric Affect: flexible, full-range SI: none expressed HI: none expressed VH/AH: none expressed Insight/judgment: fair x 2. Diagnostics Vital Signs (24Hr): Vital Signs - 24 hr 03/31/23 21:01 04/01/23 11:34 Temperature 98.0 F Pulse Rate 98 Respiratory Rate 18 18 Blood Pressure 128/71 Pulse Oximetry 99 Oxygen Delivery Method Room Air BMI result Body Mass Index 23.1 Labs 03/23/23 18:38 03/25/23 08:15 Labs: Laboratory Results - last 48 hr 03/31/23 08:23 [place] 0.65 Medications Medications Current Medications Acetaminophen (Acetaminophen 325 Mg Tablet) 650 mg PO Q6H PRN PRN Reason: Headache/Pain Mild Scale (1-3) Al Hydroxide/Mg Hydroxide (Magnesium Hydrox/Alum Hydrox 30 Ml Oral.Susp) 30 ml PO Q6H PRN PRN Reason: Heartburn/Nausea Last Admin: 04/01/23 12:35 Dose: 30 ml Benzocaine (Throat Lozenge, Medicated Lozenge) 1 lozenge MUCOUS MEM Q2H PRN PRN Reason: Sore Throat Last Admin: 03/30/23 16:17 Dose: 1 lozenge Chlorpromazine HCl (Chlorpromazine Hcl 25 Mg Tablet) 50 mg PO Q4H PRN PRN Reason: agitation Last Admin: 04/01/23 08:53 Dose: 50 mg Diphenhydramine HCl (Diphenhydramine Hcl 25 Mg Capsule) 50 mg PO BEDTIME PRN PRN Reason: Insomnia Last Admin: 03/31/23 20:58 Dose: 50 mg Guaifenesin (Guaifenesin 200 Mg/10 Ml 10 Ml Liquid) 10 ml PO Q6H PRN PRN Reason: Cough Last Admin: 03/31/23 14:57 Dose: 10 ml Hydroxyzine HCl (Hydroxyzine Hcl 25 Mg Tablet) 25 mg PO Q6H PRN PRN Reason: Anxiety Last Admin: 04/01/23 06:48 Dose: 25 mg Hydroxyzine HCl (Hydroxyzine Hcl 25 Mg Tablet) 25 mg PO Q6H PRN PRN Reason: Anxiety Last Admin: 04/01/23 13:49 Dose: 25 mg [place] Carbonate ([place] Carbonate Er 300 Mg Tablet.Er) 1,200 mg PO BEDTIME VIC Last Admin: 03/31/23 20:58 Dose: 1,200 mg Magnesium Hydroxide (Milk Of Magnesia 30 Ml Oral.Susp) 30 ml PO DAILY PRN PRN Reason: Constipation Melatonin (Melatonin 3 Mg Tablet) 3 mg PO BEDTIME PRN PRN Reason: insomnia Last Admin: 03/31/23 20:59 Dose: 3 mg Olanzapine (Olanzapine 10 Mg Tablet) 20 mg PO BEDTIME VIC Last Admin: 03/31/23 20:58 Dose: 20 mg Trazodone HCl (Trazodone Hcl 50 Mg Tablet) 50 mg PO BEDTIME MRX1 PRN PRN Reason: Insomnia Last Admin: 03/31/23 01:28 Dose: 50 mg Allergies Allergies Allergy/AdvReac Type Severity Reaction Status Date / Time No Known Allergies Allergy Verified 02/22/22 16:29 Assessment & Plan Assessment & Plan (1) Chronic schizophrenia: Status: Acute Code(s): F20.9 - Schizophrenia, unspecified Plan The patient is an young adult male with a prior history of schizophrenia who was brought into the facility for delusion see if thoughts, agitation and possible noncompliance. The patient was assessed by the crisis team and needed to this facility for psychiatric stabilization. PLAN 03/26- continue current medications. 03/27: increase lithium from 900 QHS to 1200 QHS. 03/28: continues in an extremely good humor. sleeping, though. no change in mgmt. 03/29: sleep poorer last night. remains in a very bright mood. appropriate behaviors. 03/30: only 4-5 hours sleep last night. no change. labs sunday evening (ordered). 03/31 continue tx. 04/01 continue tx. Reason for continued inpatient stay Substantial Risk for: inability to function Time Spent With Patient Time: Total time managing care of this patient today ____ minutes.
[2023-04-01] MEDS: diphenhydrAMINE HCL 25 MG CAPSULE 50 MG PO (20:18)
[2023-04-01] MEDS: Melatonin 3 MG TABLET PO (20:18)
[2023-04-01] MEDS: OLANZapine 10 MG TABLET 20 MG PO (20:18)
[2023-04-01] MEDS: Lithium Carbonate ER 300 MG TABLET.ER 1200 MG PO (20:19)
[2023-04-01 20:25] VITALS: BP 118/62; PULSE 115; RESP 16; TEMP 36.4; O2SAT 98
[2023-04-01 20:50] LABS: Lithium 0.29 mmol/L (0.60-1.20)
[2023-04-01 20:58] LABS: Alanine Aminotransferase 74 U/L (0-40); Albumin Level 4.6 g/dL (3.5-5.0); Alkaline Phosphatase 52 U/L (39-117); Anion Gap 14 (12-20); Aspartate Amino Transferase 34 U/L (5-37); Bilirubin Direct < 0.2 mg/dL (0.0-0.5); Bilirubin Total 0.2 mg/dL (0.0-1.0); Blood Urea Nitrogen 14 mg/dL (9-16); Calcium 10.3 mg/dL (8.4-10.2); Carbon Dioxide 26 mmol/L (22-29); Chloride 107 mmol/L (96-108); Creatinine Clr Calc Pharmacy 130.5; Estimated Glomerular Filt Rate > 60; Glucose Random 93 mg/dL (60-115); Potassium 4.3 mmol/L (3.3-5.1); Sodium 143 mmol/L (135-145)
[2023-04-02] MEDS: hydrOXYzine HCL 25 MG TABLET PO (08:29)
[2023-04-02 09:20] VITALS: BP 133/68; PULSE 99; RESP 18; TEMP 36.7; O2SAT 98
[2023-04-02] MEDS: chlorproMAZINE HCl 25 MG TABLET 50 MG PO (09:27)
--- NOTE | 2023-04-02 10:21 | P.DS_ITS ---
DS: Providers Provider Date of Service: 04/02/23 Date of admission: 03/24/23 12:09 Primary care physician: Unknown Physician DS: Diagnosis Discharge Diagnosis (1) Chronic schizophrenia: Status: Acute DS: Medications Discharge Medications Home Medications: Previous Rx's Medication Instructions Recorded chlorpromazine 25 mg tablet 50 mg PO Q4H PRN agitation 30 days 04/02/23 #120 tabs hydroxyzine HCl 25 mg tablet 25 mg PO Q6H PRN Anxiety 30 days 04/02/23 #120 tabs lithium carbonate 300 mg 1,200 mg PO BEDTIME 30 days #120 04/02/23 tablet,extended release tabs melatonin 3 mg tablet 6 mg PO BEDTIME PRN insomnia 30 04/02/23 days #60 tabs olanzapine 20 mg tablet 20 mg PO BEDTIME 30 days #30 tabs 04/02/23 Mental Status Exam Mental Status Exam Narrative: Appearance:casually groomed, good hygiene, in NAD Behavior: cooperative Psychomotor: no agitation or retardation noted Speech: clear, normal rate/rhythm/volume, spontaneous TP: linear TC: no paranoid delusions expressed Mood: modestly euphoric Affect: flexible, full-range SI: none HI: none VH/AH: none Insight/judgment: fair x 2. Data Data Completed and Pending Completed studies during hospitalization [Text1]: 03/31/23 04/01/23 04/01/23 08:23 20:14 20:14 Sodium 143 Potassium 4.3 Chloride 107 Carbon Dioxide 26 Anion Gap 14 BUN 14 Creatinine 0.92 Estim Creat Clear Calc 130.5 Estimated GFR > 60 Random Glucose 93 Calcium 10.3 H Total Bilirubin 0.2 Direct Bilirubin < 0.2 AST 34 ALT 74 H Alkaline Phosphatase 52 Total Protein 7.0 Albumin 4.6 [place] 0.65 0.29 L DS: Summary Hospital Course Hospital Course: per 03/25 admission note: The patient is a 23-year-old male, single, with no children, currently unemployed, living with his family grandmother, mother and mother's boyfriend with good social support referred from the emergency room for exacerbation of psychosis.? The patient carries a diagnosis of schizophrenia and he was recently discharged from this hospital.? According to the crisis assessment, the patient had a verbal altercation with his mother and crisis was called.? According to the crisis assessment, the patient reported that he was been abducted by aliens, his life work is to exposed these facts.? According to the crisis assessment, he had been also more irritable and violent, with visual hallucinations auditory hallucinations and nonsensical behavior.? 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 He refused to elaborate regarding the aliens.? He stated that he had an argument with his mum the night of the admission to the emergency room and he called crisis.? He was medicated with Thorazine on the emergency room.? We will try to gather collateral information, the patient is very well-versed on the legal status and he is willing to continue treatment.? He had been easily redirectable in the unit and in this moment. Past Psychiatric History: Psychiatrically hospitalized January 2022 at [place] and other admissions for psychosis at psychiatric unit.? According to the patient has at least 5 psych.? iatric admissions Possibly psychiatric hospitalization february 2022 Some traumatic events in childhood relating to living with his father who is a combination of bipolar and antisocial.? Patient has had several years in his 20's of trouble holding down a job with what seems to be relational conflicts with either peers or the boss.? Some mild low level rastafarian preoccupation over the past 3 years in early but mother says nothing out of the ordinary and was only in December 2021 that his obsessive thinking and delusional ideas intensified and patient had manic symptoms.? ? Med trials: Risperdal plus Depakote:? No effect per patient (discharged on these 2 meds January 2022) Zyprexa: short trial; not sure effect Medical Evaluation Reviewed: Yes [facility] Medical History? Alcohol abuse Schizoaffective disorder, bipolar type Family History: Father:? bipolar/antisocial Social History: Did not graduate high school and only completed the 9th grade.? He says he does did not fit in.? 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 The patient was assessed by the crisis team and needed to this facility for psychiatric stabilization.? 03/25: restart home meds 03/26: continue current medications. 03/27:? increase lithium from 900 QHS to 1200 QHS. 03/28:? continues in an extremely good humor.? sleeping, though.? no change in mgmt. 03/29:? sleep poorer last night.? remains in a very bright mood.? appropriate behaviors. 03/30:? only 4-5 hours sleep last night.? no change.? labs sunday evening (ordered). 03/31 continue tx. 04/01 continue tx. 04/02: feeling well, discharge as planned. lithium level unexpectedly low at 0.29, unclear why. it is a true trough level as opposed to prior levels which were drawn in the morning (0.65) and would be 11 hours from lithium dosing rather than 23. pt says he will try taking the lithium 600 BID rather than 1200 at HS. feels the lithium dosing increase has been helpful in any case. Time Spent with Patient Time attestation: Total time managing care of this patient today ____ minutes. Time spent: Greater than 30 minutes Discharge Plan Discharge Anticipated Discharge Date/Time: 04/02/23 10:19 Patient Disposition: Home, Self-Care Discharge Diagnosis: Schizoaffective Disorder, Bipolar Type Referrals: Vita Arredondo (Therapy) [Other] - 04/03/23 2:00 pm (IN OFFICE APPOINTMENT) Aminah Gudino (Psychiatry) [Other] - 05/02/23 10:30 am (IN OFFICE APPOINTMENT -Psychiatric Evaluation ) Aminah Gudino (Psychiatry) [Other] - 06/01/23 10:00 am (IN OFFICE APPOINTMENT -Medication Management ) Nuvia LAMBERT [Other] - 1 Week Physician,Sulema J [Primary Care Provider] - 1 Week Discharge Medications: New lithium carbonate 300 mg Tablet Extended Release 1,200 mg PO BEDTIME 30 Days Qty: 120 0RF Continued chlorpromazine 25 mg Tablet 50 mg PO Q4H PRN (Reason: agitation) 30 Days Qty: 120 0RF hydroxyzine HCl 25 mg Tablet 25 mg PO Q6H PRN (Reason: Anxiety) 30 Days Qty: 120 0RF olanzapine 20 mg tablet 20 mg PO BEDTIME 30 Days Qty: 30 0RF Changed melatonin 3 mg Tablet 6 mg PO BEDTIME PRN (Reason: insomnia) 30 Days Qty: 60 0RF Discontinued diphenhydramine HCl 25 mg Capsule 50 mg PO BEDTIME PRN (Reason: Insomnia) 30 Days Qty: 60 0RF lithium carbonate 450 mg Tablet Extended Release 900 mg PO BEDTIME 30 Days Qty: 60 0RF Discharge Orders: Discharge Order (Routine); Ordered 04/02/23 Ordered By: Diego Castro Diet: Advance to usual diet Activity on Discharge: As tolerated Stand Alone Forms: Patient Portal Discharge page, Community Support Care Plan Goals: remain safe and stable in the outpatient treatment setting Health Concerns: none Plan of Treatment: take medications as prescribed, attend appointments as scheduled Assessment: not at imminent risk of harm to self or others Discharge Date/Time: 04/02/23 11:00
== END 2023-04-02 11:00 | disposition home or self-care (01) | DRG 750 ==
LOC: HO.ED 19:45 → HO.PADLT16 03-24 12:29
PROVIDERS: Physician Assistant Medical; Admitting Provider Psychiatry & Neurology Psychiatry; Emergency Provider Emergency Medicine; Visit Provider Psychiatry & Neurology Psychiatry
DX: F20.9 Schizophrenia, unspecified (principal); Z91.148 Patient's other noncompliance with medication regimen for other reason; F10.10 Alcohol abuse, uncomplicated; Z20.822 Contact with and (suspected) exposure to COVID-19; Y90.1 Blood alcohol level of 20-39 mg/100 ml; Z79.899 Other long term (current) drug therapy
CPT/HCPCS: 36415; 80048; 80053; 80061; 80076; 80143; 80178; 80179; 80307; 81003; 85025; 87635; 93005; 99285; S9485

== ENCOUNTER 2023-09-07 10:34 | Outpatient (REF) | payer MEDICAID, SELFPAY ==
[2023-09-07 10:44] LABS: MANUAL DIFF FLAG NO
[2023-09-07 11:53] LABS: Basophils Percent Auto 0.7 % (0-2); Eosinophils Absolute Auto 0.3 X10*3/uL (0.0-0.4); Eosinophils Percent Auto 4.7 % (0-4); Hematocrit 42.1 % (42.0-52.0); Hemoglobin 13.6 g/dl (14.0-18.0); Imm Gran Abs Auto 0.01 X10*3/uL (0.00-0.03); Imm Gran Pct Auto 0.2 % (0.0-0.4); Lymphocytes Absolute Auto 1.8 X10*3/uL (1.2-4.9); Lymphocytes Percent Auto 30.4 % (20-40); Mean Corpuscular HGB Conc 32.3 g/dl (31.0-36.0); Mean Corpuscular Hemoglobin 28.3 pg (27.0-33.0); Mean Corpuscular Volume 87.5 fL (80.0-98.0); Mean Platelet Volume 10.8 fL (9.4-12.4); Monocytes Absolute Auto 0.4 X10*3/uL (0.1-1.2); Monocytes Percent Auto 7.4 % (2-11); Neutrophils Absolute Auto 3.3 x10*3/uL (2.0-8.3); Neutrophils Percent Auto 56.6 % (45-73); Platelet Count 303 X10*3/uL (160-400); Red Blood Count 4.81 X10*6/uL (4.60-5.80); Red Cell Distribution Width 13.1 % (11.0-16.0); White Blood Count 5.8 X10*3/uL (4.8-10.8)
[2023-09-07 12:23] LABS: Lithium 0.56 mmol/L (0.60-1.20)
[2023-09-07 12:49] LABS: Alanine Aminotransferase 85 U/L (0-40); Albumin Level 4.8 g/dL (3.5-5.0); Alkaline Phosphatase 60 U/L (39-117); Anion Gap 10 (12-20); Aspartate Amino Transferase 43 U/L (5-37); Bilirubin Total 0.3 mg/dL (0.0-1.0); Blood Urea Nitrogen 10 mg/dL (9-16); Calcium 10.2 mg/dL (8.4-10.2); Carbon Dioxide 26 mmol/L (22-29); Chloride 108 mmol/L (96-108); Cholesterol 177 mg/dL (<200); Estimated Glomerular Filt Rate > 60; Glucose Fasting 83 mg/dL (60-99); HDL Cholesterol 35 mg/dL (>40); LDL Cholesterol Calculated 97 mg/dL (<100); Potassium 3.9 mmol/L (3.3-5.1); Sodium 140 mmol/L (135-145); Thyroid Stimulating Hormone 1.99 uIU/mL (0.32-4.0); Total Protein 7.2 g/dL (6.5-8.0); Triglycerides 225 mg/dL (<150)
== END 2023-09-07 10:35 | disposition home or self-care (01) ==
LOC: HO.LAB 10:34
PROVIDERS: Visit Provider Nurse Practitioner Psychiatric/Mental Health
DX: F25.0 Schizoaffective disorder, bipolar type (principal); Z79.899 Other long term (current) drug therapy
CPT/HCPCS: 36415; 80053; 80061; 80178; 84443; 85025

== ENCOUNTER 2024-10-27 11:50 | Outpatient (REF) | payer MEDICAID, SELFPAY ==
[2024-10-27 12:06] LABS: MANUAL DIFF FLAG NO
[2024-10-27 12:36] LABS: Basophils Absolute Auto 0.1 X10*3/uL (0.0-0.2); Basophils Percent Auto 0.6 % (0-2); Eosinophils Absolute Auto 0.2 X10*3/uL (0.0-0.4); Eosinophils Percent Auto 2.2 % (0-4); Hematocrit 43.8 % (42.0-52.0); Hemoglobin 14.1 g/dl (14.0-18.0); Imm Gran Abs Auto 0.02 X10*3/uL (0.00-0.03); Imm Gran Pct Auto 0.2 % (0.0-0.4); Lymphocytes Absolute Auto 1.6 X10*3/uL (1.2-4.9); Lymphocytes Percent Auto 18.9 % (20-40); Mean Corpuscular HGB Conc 32.2 g/dl (31.0-36.0); Mean Corpuscular Hemoglobin 28.7 pg (27.0-33.0); Mean Platelet Volume 10.2 fL (9.4-12.4); Monocytes Absolute Auto 0.5 X10*3/uL (0.1-1.2); Monocytes Percent Auto 5.9 % (2-11); Neutrophils Absolute Auto 5.9 x10*3/uL (2.0-8.3); Neutrophils Percent Auto 72.2 % (45-73); Platelet Count 328 X10*3/uL (160-400); Red Blood Count 4.92 X10*6/uL (4.60-5.80); Red Cell Distribution Width 12.5 % (11.0-16.0); White Blood Count 8.2 X10*3/uL (4.8-10.8)
[2024-10-27 13:28] LABS: Alanine Aminotransferase 133 U/L (0-40); Albumin Level 4.9 g/dL (3.5-5.0); Alkaline Phosphatase 52 U/L (39-117); Anion Gap 10 (12-20); Aspartate Amino Transferase 55 U/L (5-37); Bilirubin Total 0.3 mg/dL (0.0-1.0); Blood Urea Nitrogen 9 mg/dL (9-16); Calcium 10.9 mg/dL (8.4-10.2); Carbon Dioxide 25 mmol/L (22-29); Chloride 110 mmol/L (96-108); Cholesterol 205 mg/dL (<200); Estimated Glomerular Filt Rate > 60; Glucose Fasting 91 mg/dL (60-99); HDL Cholesterol 36 mg/dL (>40); LDL Cholesterol Calculated 128 mg/dL (<100); Potassium 4.1 mmol/L (3.3-5.1); Sodium 141 mmol/L (135-145); Thyroid Stimulating Hormone 2.84 uIU/mL (0.32-4.0); Total Protein 7.7 g/dL (6.5-8.0); Triglycerides 206 mg/dL (<150)
[2024-10-27 13:38] LABS: Lithium 0.65 mmol/L (0.60-1.20)
== END 2024-10-27 11:51 | disposition home or self-care (01) ==
LOC: HO.LAB 11:50
PROVIDERS: Visit Provider Nurse Practitioner Psychiatric/Mental Health
DX: Z79.899 Other long term (current) drug therapy (principal)
CPT/HCPCS: 36415; 80053; 80061; 80178; 84443; 85025

== ENCOUNTER 2025-08-15 08:26 | Inpatient (IN) | payer MEDICARE, MEDICAID, SELFPAY ==
[2025-08-15 08:40] VITALS: BP 150/100; PULSE 96; O2SAT 98; BMI 25.0
--- NOTE | 2025-08-15 08:43 | ED_ITS ---
HPI - General Adult General Chief complaint: Psychiatric Symptoms Stated complaint: Behavioral episode Sec 12 Time Seen by Provider: 08/15/25 08:42 Source: patient, EMS and police Mode of arrival: EMS Limitations: other (patient hyperverbal + disorganized) History of Present Illness ED Provider: Lor Avila PA-C HPI narrative: Patient is a 25 year old assigned male at with a history of schizophrenia and PTSD presenting to the emergency department today with possible psychosis on a section 12. Patient states that he has not taken his medications in a long time. Patient is hyper-verbal and disorganized upon interviewing and cannot appropriately participate in HPI at this time. Related Data Home Medications ?Medication ?Instructions ?Recorded ?Confirmed olanzapine 10 mg tablet 10 mg PO DAILY 08/15/2507/23 Allergies Allergy/AdvReac Type Severity Reaction Status Date / Time No Known Allergies Allergy Verified 08/15/25 08:44 Review of Systems 2 Constitutional: Constitutional: Reports as per HPI Eyes: Eyes: Reports as per HPI ENT: Reports as per HPI Cardiovascular: Cardiovascular: Reports as per HPI Respiratory: Respiratory: Reports as per HPI Gastrointestinal: Gastrointestinal: Reports as per HPI Genitourinary: Genitourinary: Reports as per HPI Musculoskeletal: Musculoskeletal: Reports as per HPI Integumentary/Breasts: Skin/Breast: Reports as per HPI Neurologic: Reports as per HPI Psychiatric: Psychiatric: Reports as per HPI Endocrine: Endocrine: Reports as per HPI Hematologic/Lymphatic: Hematologic/Lymphatic: Reports as per HPI Allergic/Immunologic: Allergic/Immunologic: Reports as per HPI PMFSH Past Medical History Attestation statement: The following information was validated with the patient. Source: old records reviewed and nursing notes reviewed Medical History Schizoaffective disorder, bipolar type Alcohol abuse Social History Social History Household Members: Family Household Members Other:: Mom, her bf, grandmother Housing: House Do you presently have visiting nurse or other home services: No Alcohol intake: current Alcohol intake frequency: a few times a week Alcohol type: beer Patient Tobacco Use Status: Never used Tobacco Tobacco use type: Cigarette Smoked in Last 30 Days: No e-Cigarette/Vaping Use: Never Used Second Hand Smoke Exposure: No Substance Use Type: Caffiene Advance Directives: No Advance Directives Information Provided: No Do you have a plan to hurt others: No Plan service: No Sexual orientation: Don't Know Physical Exam ED Vital Signs: Vital Signs - 24 hr 08/17/25 06:33 Temperature 97.7 F Pulse Rate 95 Respiratory Rate 20 Blood Pressure 118/78 Pulse Oximetry 99 Oxygen Delivery Method Room Air BMI result Body Mass Index 25.0 Const General: cooperative, no acute distress, alert and awake Nutritional Appearance: well nourished Orientation/consciousness: patient oriented x3 HENMT Head: Yes normal to inspection and Yes atraumatic Ears: hearing grossly normal bilaterally and external ears normal General nose exam: Normal external nose present, no nasal discharge noted and no epistaxis Face and sinus: Yes normal facial exam, No abrasion and No laceration Mouth: Normal oral and palatal mucosa present, no drooling and no muffled voice Eyes General: appearance normal, both eyes and all related structures Periorbital: periorbital findings normal Eyelids: Yes eyelids normal Conjunctivae: conjunctivae normal Pupils: Equal, round and reactive pupils present EOM: EOMs intact bilaterally Neck Neck: Yes normal visual inspection and Yes full ROM Resp Effort & Inspection: normal respiratory effort and able to speak in complete sentences Neuro General: patient oriented x3, moves all extremities and CN's II-XI intact bilaterally Cranial nerves: Yes Equal, round and reactive pupils present Cognition (Neuro): normal cognition Extrem General: Yes normal to inspection, Yes full ROM and Yes capillary refill normal Psych Affect: Animated affect present Attitude: Other attitude/behavior findings present (Psych) (hyperverbal / disorganized) Thought process: Confabulating thought process present, Flight of ideas present and Illogical thought process present Course Reevaluation(s) Reevaluation #1: Date: 08/16/25 Bautista Parekh MD Patient in physician observation 05:38 No acute events reported overnight. No current complaints. VS stable.? Patient was evaluated by the CARE team. Patient is on a section 12 and is in in-patient bed search. Will continue to monitor. 16:35 Patient was re-evaluated by care team and continues to be inpatient bed search. Time: 05:59 Date: 08/17/25 Provider: Mea Ortez, DO Patient in physician observation for psychiatric evaluation.? No acute events reported overnight. No current complaints. VS stable.? Patient is in bed search status. Will continue to monitor. Reevaluation #2: Time: 13:07 Date: 08/17/25 Provider: Mae Ortez DO Physician observation ended at 107pm.Patient to be admitted as inpatient to psychiatry Medications Administered Discontinued Medications Generic Name Dose Route Start Last Admin Trade Name Alex PRN Reason Stop Dose Admin Lorazepam 1 mg 08/16/25 00:01 08/16/25 00:12 Lorazepam 1 Mg Tablet PO 08/16/25 00:02 1 mg ONCE ONE Administration Trazodone HCl 100 mg 08/16/25 02:33 08/16/25 03:38 Trazodone Hcl 100 Mg Tablet PO 08/16/25 02:34 Not Given ONCE ONE Medical Decision Making Medical Decision Making MDM Narrative: Patient is a 25 year old assigned male at with a history of schizophrenia and PTSD presenting to the emergency department today with possible psychosis on a section 12. Patient's physical exam was as noted in the physical exam portion of this note. Concerning for acute psychosis / psychiatric decompensation. Patient's blood work was unremarkable. Patient met with the CARE Team who determined the patient would remain on a section 12 and will need inpatient level of psychiatric care. I explained my physical exam findings as well as all test results to the patient. I answered all questions asked by the patient. Patient will remain in observation until he is either admitted to the psychiatric floor here at [facility] or transferred to an appropriate psychiatric facility. Observation began at 0844 on 08/15/2025. Differential Diagnosis Differential Diagnoses: The differential diagnosis associated with the presentation includes Psychosis Decompensated mental state Admission/Observation Consideration of admission/observation: Escalation of care including admission/observation considered Patient is a 25 year old assigned male at with a history of schizophrenia and PTSD presenting to the emergency department today with possible psychosis on a section 12. Consult Healthcare Provider Management of the patient was discussed with: Behavioral Health Provider (spoke with the CARE team as noted in the MDM Rationale portion of this note) Lab Data MDM Lab Attestation statement: I reviewed the patient's lab results. My interpretation of these results are in the MDM Rationale portion of this note. 08/15/25 08:58 08/15/25 08:58 Labs: Lab Results 08/15/25 08/15/25 Range/Units 08:58 09:15 WBC 5.9 (4.8-10.8) X10*3/uL RBC 4.48 L (4.60-5.80) X10*6/uL Hgb 12.8 L (14.0-18.0) g/dl Hct 39.3 L (42.0-52.0) % MCV 87.7 (80.0-98.0) fL MCH 28.6 (27.0-33.0) pg MCHC 32.6 (31.0-36.0) g/dl RDW 12.6 (11.0-16.0) % Plt Count 333 (160-400) X10*3/uL MPV 9.9 (9.4-12.4) fL Immature Gran % (Auto) 0.2 (0.0-0.4) % Neut % (Auto) 73.7 H (45-73) % Lymph % (Auto) 19.5 L (20-40) % [place] % (Auto) 6.1 (2-11) % Eos % (Auto) 0.2 (0-4) % Baso % (Auto) 0.3 (0-2) % Lymph # (Auto) 1.2 (1.2-4.9) X10*3/uL [place] # (Auto) 0.4 (0.1-1.2) X10*3/uL Eos # (Auto) 0.0 (0.0-0.4) X10*3/uL Baso # (Auto) 0.0 (0.0-0.2) X10*3/uL Abs Immat Gran (auto) 0.01 (0.00-0.03) X10*3/uL Absolute Neuts (auto) 4.4 (2.0-8.3) x10*3/uL Absolute Nucleated RBC 0.000 (0.0-0.012) X10*3/uL Nucleated RBC % (auto) 0.0 (0.0-0.2) /100WBC Sodium 139 (135-145) mmol/L Potassium 4.0 (3.3-5.1) mmol/L Chloride 108 (96-108) mmol/L Carbon Dioxide 23 (22-29) mmol/L Anion Gap 12 (12-20) BUN 11 (9-16) mg/dL Creatinine 0.72 (0.5-1.4) mg/dL Estim Creat Clear Calc 139.0 Estimated GFR > 60 Random Glucose 106 (60-115) mg/dL Calcium 9.5 D (8.4-10.2) mg/dL Total Bilirubin 0.4 (0.0-1.0) mg/dL AST 92 H (5-37) U/L ALT 97 H (0-40) U/L Alkaline Phosphatase 78 (39-117) U/L Total Protein 6.6 (6.5-8.0) g/dL Albumin 4.6 (3.5-5.0) g/dL Urine Color Yellow Urine Appearance Clear Urine pH 8.0 (5.0-9.0) Ur Specific [place] 1.010 (1.005-1.025) Urine Protein Negative (Neg-Trace) mg/dL Urine Glucose (UA) Negative (Negative) mg/dL Urine Ketones Trace (Negative) mg/dL Urine Blood Negative (Negative) Urine Nitrite Negative (Negative) Ur Leukocyte Esterase Negative (Negative) Salicylates < 5.0 L (15-30) mg/dL Urine Opiates Screen Not Detected (Not Detect) Ur Buprenorphine Scrn Not Detected (Not Detect) ng/mL Ur Oxycodone Screen Not Detected (Not Detect) ng/mL Urine Methadone Screen Not Detected (Not Detect) ng/mL Urine Fentanyl Screen Not Detected (Not Detect) Acetaminophen < 3 (<30) mcg/mL Ur Barbiturates Screen Not Detected (Not Detect) Ur Phencyclidine Scrn Not Detected (Not Detect) Ur Amphetamines Screen Not Detected (Not Detect) U Benzodiazepines Scrn Not Detected (Not Detect) Urine Cocaine Screen Not Detected (Not Detect) U Marijuana (THC) Screen POSITIVE H (Not Detect) Ethyl Alcohol < 10 mg/dL Independent Historian Clinical information obtained from an independent historian. History obtained from or confirmed by: EMS (EMS provided additional history) Critical Care Time Critical Care Time Critical Care Time: Yes Total Critical Care Time: 36 Attestation: I spent 36 minutes of Critical Care Time with this patient. This does not include time spent on separately reported billable procedures. Discharge Plan Discharge Clinical Impression: Psychosis Qualifiers: Psychosis type: other Qualified Code(s): F28 - Other psychotic disorder not due to a substance or known physiological condition Patient Disposition: Admitted As Inpatient Interventions: [place]-Suicide Risk Severity Scale Last Done: 08/16/25 17:51 Admission Worksheet (ED) Last Done: 08/17/25 12:57 Print Language: Belarusian
[2025-08-15 08:51] VITALS: BP 119/65; PULSE 75; RESP 18; TEMP 36.2; O2SAT 99
[2025-08-15 09:08] LABS: MANUAL DIFF FLAG NO
[2025-08-15 09:11] LABS: Hematocrit 39.3 % (42.0-52.0); Hemoglobin 12.8 g/dl (14.0-18.0); Imm Gran Abs Auto 0.01 X10*3/uL (0.00-0.03); Imm Gran Pct Auto 0.2 % (0.0-0.4); Lymphocytes Absolute Auto 1.2 X10*3/uL (1.2-4.9); Mean Corpuscular HGB Conc 32.6 g/dl (31.0-36.0); Mean Corpuscular Hemoglobin 28.6 pg (27.0-33.0); Mean Corpuscular Volume 87.7 fL (80.0-98.0); NRBC Abs Auto 0.000 X10*3/uL (0.0-0.012); NRBC Pct Auto 0.0 /100WBC (0.0-0.2); Platelet Count 333 X10*3/uL (160-400); Red Blood Count 4.48 X10*6/uL (4.60-5.80); White Blood Count 5.9 X10*3/uL (4.8-10.8)
--- OUTSIDE RECORDS SUMMARY | 2025-08-15 09:16 | XMS_ITS | Encounter Summary ---
Author Organization [employer] Address [address] [place] [address] Care Team Providers Care Supervisor Bridges And Buildings Name Role Phone Caden Chase Unassigned Primary Care Provider U navailable Provider, Not In System Primary Care Provider Un available Reason for Visit * Reason Onset Date Comments referral 07/25/2023 Encounter Details Date Type Department Care Team ([facility] st Contact Info) Description 07/25/2023 Telephone C [facility] [address] [place] [address] Riky Nunez DDS [address] [place] [address] referral Social History Tobacco Use Types Packs/Day Years Used Date Smoking Tobacco: Never Assessed Sex and Gender Information Value Date Recorded Sex Assigned at Male 07/17/2023 9:20 AM EDT Legal Sex Male 6:22 PM EDT Gender Identity Male 08/18/2022 6:22 PM EDT Sexual Orientation Choose not to disclose 2022 9:20 AM EDT documented as of this encounter Miscellaneous Notes * Telephone Encounter - Venecia Han - 07/25/2023 3:31 PM EDT Patient called in with mother. He is unable to do the appt with Sudol because he wants to be put under. He is looking for referral to be sent out to Oral Surgeon Abram Guzman for GA or Sedation. His anxiety wont allow him to get through ext appt without nitrous or more. documented in this encounter Plan of Treatment Not on file documented as of this encounter Visit Diagnoses Not on filedocumented in this encounter Care Teams Supervisor Bridges And Buildings Relationship Specialty Start Date End Date Caden Chase Unassigned PCP - General Family Medicine 04/02/23 05/11/25 Provider, Not In System PCP - General Family Medicine 05/12/25 documented as of this encounter
--- OUTSIDE RECORDS SUMMARY | 2025-08-15 09:17 | XMS_ITS | Clinical Summary ---
Author Organization [employer] Address [address] [place] [address] Care Team Providers Care Band Machine Operator Name Role Phone Provider, Not In System Primary Care Provider Un available Allergies No known active allergies Medications * This document contains information received from the source organization and may not represent a complete record from that organization. lithium 8 MEQ/5ML solution Take by mouth 3 times daily. Active OLANZapine (ZyPREXA) 10 MG tablet at bedtime. Active Social History Tobacco Use Types Packs/Day Years Used Date Smoking Tobacco: Never Assessed Housing Stability Answer Date Recorded What is your housing situation today? I have piper mittal 08/26/[address] you li ve. Do you have problems with any of the following? None of the above 08/26/2023 Food Insecurity Answer Date Recorded Within the past 12 months, y ou worried that your food would run out before you got money to buy more: Never True 08/26/2023 Within the past 12 months,th e food you bought just didn't last and you didn't have enough money to get more: Never True 02/2023 Transportation Answer Date Recorded In the past 12 months, has l ack of transportation kept you from medical appts, meetings, work or from getting things needed for daily living? No 08/26/2023 Utilities Answer Date Recorded In the past 12 months, has t he electric, gas, oil or water company threatened to shut off services in your home? No 08/26/2023 Sex and Gender Information Value Date Recorded Sex Assigned at Male 07/17/2023 9:20 AM EDT Legal Sex Male 6:22 PM EDT Gender Identity Male 08/18/2022 6:22 PM EDT Sexual Orientation Choose not to disclose 2022 9:20 AM EDT Last Filed Vital Signs Vital Sign Reading Time Taken Comments Blood Pressure 112/70 02/17/2022 11:12 AM EDT Pulse 99 02/17/2022 11:12 AM EDT Temperature - - Respiratory Rate - - Oxygen Saturation 99% 02/17/2022 11:12 AM EDT Inhaled Oxygen Concentration - - Weight 64.9 kg (143 lb) 02/17/2022 11:12 AM EDT Height 180.3 cm (5' 11 ) 02/17/2022 11:12 AM EDT Body Mass Index 19.94 02/17/2022 11:12 AM EDT Plan of Treatment Health Maintenance Due Date Last Done Comments Dental Oral Exam 1998 Dental Prophylaxis 1998 Dental X-Ray: Bitewings 1998 Depression Screening 1998 HIV Screening 1998 Disability Screening 1998 Alcohol/Substance Use Screening 2010 Tobacco Screening 2010 Family Planning (PISQ) 2013 HPV Vaccines (1 - Male 3-dos e series) 2013 Hepatitis C Screening 2016 DTaP/Tdap/Td Vaccines (1 - Tdap) 2017 Hepatitis B Vaccines (1 of 3 - 19+ 3-dose series) 2017 SDOH Screening 04/05/2024 04/05/2023 COVID-19 Vaccine (1 - 2023-2 5 season) 2025 Influenza Vaccine (#1) 2025 Dental X-Ray: Full Mouth 07/18/2026 07/17/2023 Zoster Vaccines (1 of 2) 2048 RSV Patients and Pa tients Aged 60 years or older (1 - 1-dose 75+ series) 2073 HIB Vaccines Aged Out No longer eligi ble based on patient's age to complete this topic Hepatitis A Vaccines Aged Out No long er eligible based on patient's age to complete this topic IPV Vaccines Aged Out No longer eligi ble based on patient's age to complete this topic Meningococcal B Vaccine Aged Out No l onger eligible based on patient's age to complete this topic Meningococcal Vaccine Aged Out No ying deion eligible based on patient's age to complete this topic Pneumococcal Vaccine: Pediat rics (0 to 5 Years) and At-Risk Patients (6 to 49) Years Aged Out No longer eligi ble based on patient's age to complete this topic RSV under 20 months Aged Out No longe r eligible based on patient's age to complete this topic Rotavirus Vaccines Aged Out No longer eligible based on patient's age to complete this topic Procedures Procedure Name Priority Date/Time Associated Diagnosis Comments PANORAMIC RADIOGRAPHIC IMAGE Routine 07/17/2023 11:30 AM EDT from Last 3 Months or Most Recently Relevant to Health Maintenance Insurance [facility] C3 DENTAL-[facility] MEDICAID STAND ADULT * Guarantor: Florentino Lindo Account Type Relation to Patient Date of Phone Billing Address Dental Self Care Teams Band Machine Operator Relationship Specialty Start Date End Date Provider, Not In System PCP - General Family Medicine 05/12/25
--- OUTSIDE RECORDS SUMMARY | 2025-08-15 09:17 | XMS_ITS | Encounter Summary ---
Author Organization [employer] Address [address] [place] [address] 7 h Floor [place] [id number] Care Team Providers Care Video Tape Editor Name Role Phone Caden Chase Unassigned Primary Care Provider U navailable Provider, Not In System Primary Care Provider Un available Encounter Details Date Type Department Care Team (Late st Contact Info) Description 10/10/[address] [id number] Perla Guadarrama MD [address] [place] [id number] Social History Tobacco Use Types Packs/Day Years Used Date Smoking Tobacco: Never Assessed Sex and Gender Information Value Date Recorded Sex Assigned at Male 07/17/2023 9:20 AM EDT Legal Sex Male 6:22 PM EDT Gender Identity Male 08/18/2022 6:22 PM EDT Sexual Orientation Choose not to disclose 2022 9:20 AM EDT documented as of this encounter Plan of Treatment Not on file documented as of this encounter Visit Diagnoses Not on filedocumented in this encounter Care Teams Video Tape Editor Relationship Specialty Start Date End Date Caden Chasessigned PCP - General Family Medicine 04/02/23 05/11/25 Provider, Not In System PCP - General Family Medicine 05/12/25 documented as of this encounter
[2025-08-15 09:27] LABS: Acetaminophen LAB < 3 mcg/mL (<30); Salicylate < 5.0 mg/dL (15-30)
[2025-08-15 09:28] LABS: Appearance Urine Clear; Glucose Urine UA Negative (Negative); PH 8.0 (5.0-9.0); Specific Gravity - Urine 1.010 (1.005-1.025)
[2025-08-15 09:31] LABS: Alanine Aminotransferase 97 U/L (0-40); Albumin Level 4.6 g/dL (3.5-5.0); Alkaline Phosphatase 78 U/L (39-117); Anion Gap 12 (12-20); Aspartate Amino Transferase 92 U/L (5-37); Blood Urea Nitrogen 11 mg/dL (9-16); Calcium 9.5 mg/dL (8.4-10.2); Carbon Dioxide 23 mmol/L (22-29); Chloride 108 mmol/L (96-108); Creatinine Clr Calc Pharmacy 139.0; Estimated Glomerular Filt Rate > 60; Potassium 4.0 mmol/L (3.3-5.1); Sodium 139 mmol/L (135-145); Total Protein 6.6 g/dL (6.5-8.0)
[2025-08-15 09:39] LABS: Cannabinoid Screen Urine POSITIVE (Not Detect)
--- NOTE | 2025-08-15 10:20 | MHC.EDTECH ---
Patient went into the bathroom and took the roll of toilet paper out and brought it to his space (7). He seen him put a handful of toilet paper in his mouth and put the face mask over it. I asked if he can remove the tissue and he said it is top secret and if I take it out, I will get killed. Nurse aware
--- NOTE | 2025-08-15 13:56 | PC.NURSE ---
Pt has been restless, wandering, jumping, singing and most all conversation is disorganized. He attempted to shave his head prior to arrival and has some dried blood on his head, he would not allow staff to assist with cleaning him up. Before lunch he urinated on himself, when given clean clothing he put the wet pants back on, just inside out.
[2025-08-15 23:37] VITALS: BP 128/84; PULSE 80; RESP 18; O2SAT 98
--- NOTE | 2025-08-15 23:40 | PC.NURSE ---
Pt is awake, alert, walks to the nurses station and reports my nervous system stopped working . Speech is clear and appropriate, Strength 5/5 in all extremities, normal tone, no focal deficits observed. VSS. Verbal reassurance provided. Pt is also reporting difficulty sleeping. made aware. No new orders at this time. Moniroting is ongoing.
[2025-08-16 12:50] VITALS: BP 131/81; PULSE 84; RESP 18; TEMP 36.3; O2SAT 97
--- NOTE | 2025-08-16 12:51 | MHC.EDTECH ---
Patient yelling from his room, demanding coffee NOW. This tech corrected patient on how to speak to staff, and he was not to demand anything from staff.
--- NOTE | 2025-08-16 21:47 | MHC.CARE ---
Pt continues to be appropriate for inpatient level of care at this time.
--- NOTE | 2025-08-17 06:15 | PC.NURSE ---
Pt slept throughout most of the night. Woke up several times throughout the night to change the music on the headphones. Pt utilized the headphones as a therapeutic device while sleeping. Pt remained calm and cooperative at all times. Ambulated to the restroom several times with a steady gait. No apparent distress noted. Breaths remained even regular and unlabored with equal chest rises. Monitoring is ongoing.
[2025-08-17 06:33] VITALS: BP 118/78; PULSE 95; RESP 20; TEMP 36.5; O2SAT 99
--- NOTE | 2025-08-17 06:59 | PC.NURSE ---
Assumed care, report received. Pt is awake and eating breakfast, calm and listening to music with unit headphones.
--- NOTE | 2025-08-17 08:23 | ECG_ITS ---
Test Reason : CHECK QTC Blood Pressure : */* mmHG Vent. Rate : 77 BPM Atrial Rate : 77 BPM P-R Int : 170 ms QRS Dur : 90 ms QT Int : 328 ms P-R-T Axes : 55 80 1 degrees QTcB Int : 371 ms Normal sinus rhythm with sinus arrhythmia Normal ECG When compared with ECG of 23-Mar-2023 19:40, No significant change was found Referred By: Bautista Parekh Electronically Signed By: ZOHREH SHABAZZ
--- NOTE | 2025-08-17 11:20 | PHA.MEDREC ---
Pharmacy Consult ? Medication Reconciliation Pharmacy has completed the medication reconciliation, using pharmacy claims.
--- NOTE | 2025-08-17 14:44 | PC.NURSE ---
Pt is restless, he paces and wanders on the unit. he continues to have Delusional thinking, he stands on the bed and jumps on it at times, he is easily redirected.
[2025-08-17 15:30] VITALS: BP 135/83; PULSE 88; TEMP 36.7; O2SAT 97; BMI 26.1
--- NOTE | 2025-08-17 18:12 | PC.NURSE ---
Rad was admitted to [facility] at 1530 from [facility] Pod on CV for treatment of schizophrenia. Per crisis eval pt has been off meds since May. Per pt his psychiatric provider Aminah Finn weaned him off zyprexa, telling him he doesn?t need it. Pharmacy records show a month?s supply picked up on 07/30/25.? Pt is alert, oriented to day date time. He is aware he is seeking treatment on an inpatient psychiatric unit but is not clear why. ? I am willing to get help with sleep.? He states that he has ? a set of rules? that he follows regarding when he can and can?t have his eyes open and who he can talk to. He arrived on the unit ambulating with eyes closed but made good eye contact during admission assessment. Mood is ?fine? per pt. Affect is anxious. He denies current or past hallucinations.? Per crisis eval pt is experiencing ?unsafe delusions? with loud, intrusive, demanding behaviors. Pt did not exhibit these behaviors during admission assessment.? He did endorse having two no trespass orders at local [employer]. Per pod RN they limited his phone use due to these no trespass orders. Thought process is organized. A few responses were irrelevant i.e. pt emphasized he has written several letters to [employer] and has received a response.? ?He denies ideation, plan or intent to harm self or others. Appetite is poor with a 12 lb recent weight loss that pt attributes to lack of appetite.Per pt and mother sleep is poor and pt has exited the home in the middle of the night. Pt appears to minimize substance issues. He denies marijuana x 2 months but Tox Screen is positive for thc. He reports he drinks 10 or more drinks on one occasion each month. He says he doesn?t need sub use treatment because he quit drinking last week.? Pt denies acute medical issues and denies physical complaint.? Safety Checks are q 15 minutes
[2025-08-17 20:00] VITALS: BP 118/55; PULSE 67; RESP 16; TEMP 36.1; O2SAT 96
[2025-08-18 07:10] VITALS: BP 124/79; PULSE 87; RESP 16; TEMP 36.3; O2SAT 99
[2025-08-18 08:10] LABS: Alanine Aminotransferase 113 U/L (0-40); Albumin Level 4.8 g/dL (3.5-5.0); Alkaline Phosphatase 76 U/L (39-117); Anion Gap 12 (12-20); Aspartate Amino Transferase 85 U/L (5-37); Blood Urea Nitrogen 16 mg/dL (9-16); Calcium 9.7 mg/dL (8.4-10.2); Carbon Dioxide 26 mmol/L (22-29); Chloride 107 mmol/L (96-108); Cholesterol 148 mg/dL (<200); Creatinine Clr Calc Pharmacy 131.3; Estimated Glomerular Filt Rate > 60; HDL Cholesterol 44 mg/dL (>40); Potassium 4.3 mmol/L (3.3-5.1); Sodium 141 mmol/L (135-145); Total Protein 7.1 g/dL (6.5-8.0); Triglycerides 228 mg/dL (<150)
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
--- NOTE | 2025-08-18 12:34 | MHC.CLN ---
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
[2025-08-18 19:50] VITALS: BP 125/71; PULSE 90; RESP 16; TEMP 36.6; O2SAT 100
[2025-08-19 08:00] VITALS: BP 142/69; PULSE 90; RESP 18; TEMP 36.2; O2SAT 99
--- NOTE | 2025-08-19 09:04 | HO.PSYCHPN ---
Subjective Subjective Date of Service: 08/19/25 Reason For Visit: Crisis Subjective Notes: 3 Day Medication Compliance: Yes Side effects from medications: No Attending Groups: Yes Mental Status Exam Mental Status Exam Narrative: Pt is alert and oriented; behavior is cooperative and calm, guarded; dressed in casual attire; mood is described as okay ; eye contact appropriate; Speech is normal rate, volume and not pressured; thought process is organized; Thought content is on tx/discharge; paranoid; denies SI/HI/VH/AH. Diagnostics Vital Signs (24Hr): Vital Signs - 24 hr 08/18/25 19:50 08/19/25 08:00 Temperature 97.8 F 97.2 F Pulse Rate 90 90 Respiratory Rate 16 18 Blood Pressure 125/71 142/69 H Pulse Oximetry 100 99 Oxygen Delivery Method Room Air Room Air BMI result Body Mass Index 26.1 Labs 08/15/25 08:58 08/18/25 07:44 Labs: Laboratory Results - last 48 hr 08/18/25 07:44 Sodium 141 Potassium 4.3 Chloride 107 Carbon Dioxide 26 Anion Gap 12 BUN 16 Creatinine 0.90 Estim Creat Clear Calc 131.3 Estimated GFR > 60 Random Glucose 94 Estimat Average Glucose 105 Hemoglobin A1c % 5.3 Calcium 9.7 Total Bilirubin 0.2 AST 85 H ALT 113 H Alkaline Phosphatase 76 Total Protein 7.1 Albumin 4.8 Triglycerides 228 H Cholesterol 148 LDL Cholesterol, Calc 59 HDL Cholesterol 44 Medications Medications Current Medications Acetaminophen (Acetaminophen 325 Mg Tablet) 650 mg PO Q6H PRN PRN Reason: Headache/Pain, Scale 1-10 Al Hydroxide/Mg Hydroxide (Magnesium Hydrox/Alum Hydrox 30 Ml Oral.Susp) 30 ml PO Q6H PRN PRN Reason: Heartburn/Nausea Aripiprazole (Aripiprazole 5 Mg Tablet) 5 mg PO BEDTIME VIC Last Admin: 08/18/25 19:10 Dose: 5 mg Hydroxyzine HCl (Hydroxyzine Hcl 25 Mg Tablet) 25 mg PO Q6H PRN PRN Reason: mild anxiety Last Admin: 08/18/25 02:03 Dose: 25 mg Magnesium Hydroxide (Milk Of Magnesia 30 Ml Oral.Susp) 30 ml PO DAILY PRN PRN Reason: Constipation Melatonin (Melatonin 3 Mg Tablet) 6 mg PO BEDTIME PRN PRN Reason: Insomnia Last Admin: 08/18/25 23:11 Dose: 6 mg Nicotine Polacrilex (Nicotine Polacrilex 2 Mg Gum) 4 mg BUCCAL Q2H PRN PRN Reason: Nicotine Cravings Olanzapine (Olanzapine 5 Mg Tablet) 5 mg PO Q4H PRN PRN Reason: agitation Trazodone HCl (Trazodone Hcl 50 Mg Tablet) 50 mg PO BEDTIME MRX1 PRN PRN Reason: Insomnia Allergies Allergies Allergy/AdvReac Type Severity Reaction Status Date / Time No Known Allergies Allergy Verified 08/15/25 08:44 Assessment & Plan Assessment & Plan (1) Schizoaffective disorder, bipolar type: Status: Acute Code(s): F25.0 - Schizoaffective disorder, bipolar type (2) Chronic post-traumatic stress disorder (PTSD): Status: Acute Code(s): F43.12 - Post-traumatic stress disorder, chronic Plan Patient is a 25-year-old male with history of schizoaffective disorder and PTSD who presented to ER via ambulance after his mother requested assistance d/t patient having delusions secondary to medication noncompliance Plan: CV 15 minute safety checks obtain collateral Start: Abilify 5mg PO bedtime encourage medication compliance encourage groups discharge planning 08/19: Active on unit. social with peers. signed 3 day notice that is up 08/24/25. Patient reports feeling okay today; pt stated, I feel like the Abilify helped me sleep. I like that it makes me calm . Discussed increasing Abilify dose to 10mg PO bedtime; pt agreed. Patient focused on discharged; pt stated, I'm going to keep taking my medication, sleeping and not break the trespass order . denies SI/HI/VH/AH. Abilify increased to 10mg PO bedtime. Patient educated on: diagnosis and medication risk/benefits Reason for continued inpatient stay Substantial Risk for: med/psych decompensation Time Spent With Patient Time: Total time managing care of this patient today _20___ minutes.
[2025-08-19 19:55] VITALS: BP 119/77; PULSE 81; RESP 16; TEMP 36.5; O2SAT 100
[2025-08-20 07:00] VITALS: BMI 26.4
[2025-08-20 08:00] VITALS: BP 136/67; PULSE 78; RESP 18; TEMP 36.6; O2SAT 99
--- NOTE | 2025-08-20 09:59 | HO.PSYCHPN ---
Subjective Subjective Date of Service: 08/20/25 Reason For Visit: Crisis Subjective Notes: 3 Day Interim History: Active on unit. social with select peers. Showered. Patient reports feeling alright ; pt stated, I feel like the Abilify is good The Zyprexa makes me feel like crap. I feel calm with the Abilify. I'm going to keep taking it . Patient continues to deny SI/HI/VH/AH. Per nursing, pt slept 3 hours last night; pt reports this is d/t having room mates and not feeling comfortable . Continue tx plan. Medication Compliance: Yes Side effects from medications: No Attending Groups: Intermittent Mental Status Exam Mental Status Exam Narrative: Pt is alert and oriented; behavior is cooperative and calm, guarded; dressed in casual attire; mood is described as okay ; eye contact appropriate; Speech is normal rate, volume and not pressured; thought process is organized; Thought content is on tx/discharge; paranoid; denies SI/HI/VH/AH. Diagnostics Vital Signs (24Hr): Vital Signs - 24 hr 08/19/25 19:55 Temperature 97.7 F Pulse Rate 81 Respiratory Rate 16 Blood Pressure 119/77 Pulse Oximetry 100 Oxygen Delivery Method Room Air BMI result Body Mass Index 26.1 Labs 08/15/25 08:58 08/18/25 07:44 Medications Medications Current Medications Acetaminophen (Acetaminophen 325 Mg Tablet) 650 mg PO Q6H PRN PRN Reason: Headache/Pain, Scale 1-10 Al Hydroxide/Mg Hydroxide (Magnesium Hydrox/Alum Hydrox 30 Ml Oral.Susp) 30 ml PO Q6H PRN PRN Reason: Heartburn/Nausea Aripiprazole (Aripiprazole 10 Mg Tablet) 10 mg PO BEDTIME VIC Last Admin: 08/19/25 19:59 Dose: 10 mg Hydroxyzine HCl (Hydroxyzine Hcl 25 Mg Tablet) 25 mg PO Q6H PRN PRN Reason: mild anxiety Last Admin: 08/19/25 23:11 Dose: 25 mg Ibuprofen (Ibuprofen 600 Mg Tablet) 600 mg PO Q6H PRN PRN Reason: Pain, Moderate(Pain Scale 4-6) Last Admin: 08/19/25 11:51 Dose: 600 mg Magnesium Hydroxide (Milk Of Magnesia 30 Ml Oral.Susp) 30 ml PO DAILY PRN PRN Reason: Constipation Melatonin (Melatonin 3 Mg Tablet) 6 mg PO BEDTIME PRN PRN Reason: Insomnia Last Admin: 08/19/25 19:59 Dose: 6 mg Nicotine Polacrilex (Nicotine Polacrilex 2 Mg Gum) 4 mg BUCCAL Q2H PRN PRN Reason: Nicotine Cravings Olanzapine (Olanzapine 5 Mg Tablet) 5 mg PO Q4H PRN PRN Reason: agitation Trazodone HCl (Trazodone Hcl 50 Mg Tablet) 50 mg PO BEDTIME MRX1 PRN PRN Reason: Insomnia Allergies Allergies Allergy/AdvReac Type Severity Reaction Status Date / Time No Known Allergies Allergy Verified 08/15/25 08:44 Assessment & Plan Assessment & Plan (1) Schizoaffective disorder, bipolar type: Status: Acute Code(s): F25.0 - Schizoaffective disorder, bipolar type (2) Chronic post-traumatic stress disorder (PTSD): Status: Acute Code(s): F43.12 - Post-traumatic stress disorder, chronic Plan Patient is a 25-year-old male with history of schizoaffective disorder and PTSD who presented to ER via ambulance after his mother requested assistance d/t patient having delusions secondary to medication noncompliance Plan: CV 15 minute safety checks obtain collateral Start: Abilify 5mg PO bedtime encourage medication compliance encourage groups discharge planning 08/19: Active on unit. social with peers. signed 3 day notice that is up 08/24/25. Patient reports feeling okay today; pt stated, I feel like the Abilify helped me sleep. I like that it makes me calm . Discussed increasing Abilify dose to 10mg PO bedtime; pt agreed. Patient focused on discharged; pt stated, I'm going to keep taking my medication, sleeping and not break the trespass order . denies SI/HI/VH/AH. Abilify increased to 10mg PO bedtime. 08/20: Active on unit. social with select peers. Showered. Patient reports feeling alright ; pt stated, I feel like the Abilify is good The Zyprexa makes me feel like crap. I feel calm with the Abilify. I'm going to keep taking it . Patient continues to deny SI/HI/VH/AH. Per nursing, pt slept 3 hours last night; pt reports this is d/t having room mates and not feeling comfortable . Continue tx plan. Patient educated on: diagnosis and medication risk/benefits Reason for continued inpatient stay Substantial Risk for: med/psych decompensation Time Spent With Patient Time: Total time managing care of this patient today __20__ minutes.
[2025-08-20 20:00] VITALS: BP 122/69; PULSE 88; RESP 16; TEMP 36.4; O2SAT 98
[2025-08-21 07:41] VITALS: BP 113/65; PULSE 109; RESP 16; TEMP 36.6; O2SAT 98
--- NOTE | 2025-08-21 12:25 | HO.PSYCHPN ---
Subjective Subjective Date of Service: 08/21/25 Reason For Visit: Crisis Subjective Notes: 3 Day Interim History: Chart reviewed, case discussed in team Pt has greeted t/w multiple times throughout the day. States that he's doing 'great . I want you to know that I used to drink a lot of alcohol but I quit. I never touched any hard drugs . Slept 4 hrs per nursing report. Pt had reportedly asked the nurse to report that he slept 7 hrs. No behavioral issues visible in the milieu throughout the day Appearance: Casually dressed. Grooming/hygiene wnl. Good eye contact Attitude: cooperative Speech: Fluent and wnl in regard to volume, tone, prosody Motor activity: Calm and without any tics, tremors or dyskinesias. Steady gait Mood: as noted above Affect: appropriate, reactive Thought process: tangential Thought content: denies SI/violent ideation. Perception: Denies AH/VH and does not appear to respond to internal stimuli Alert/oriented in all spheres Cognition grossly intact Insight: fair Judgment: fair Medication Compliance: Yes (took prn vistaril 25 mg today) Side effects from medications: No Diagnostics Vital Signs (24Hr): Vital Signs - 24 hr 08/20/25 20:00 08/21/25 07:41 Temperature 97.6 F 97.8 F Pulse Rate 88 109 H Respiratory Rate 16 16 Blood Pressure 122/69 113/65 Pulse Oximetry 98 98 Oxygen Delivery Method Room Air Room Air BMI result Body Mass Index 26.4 Labs 08/15/25 08:58 08/18/25 07:44 Medications Medications Current Medications Acetaminophen (Acetaminophen 325 Mg Tablet) 650 mg PO Q6H PRN PRN Reason: Headache/Pain, Scale 1-10 Al Hydroxide/Mg Hydroxide (Magnesium Hydrox/Alum Hydrox 30 Ml Oral.Susp) 30 ml PO Q6H PRN PRN Reason: Heartburn/Nausea Aripiprazole (Aripiprazole 10 Mg Tablet) 10 mg PO BEDTIME VIC Last Admin: 08/20/25 20:19 Dose: 10 mg Hydroxyzine HCl (Hydroxyzine Hcl 25 Mg Tablet) 25 mg PO Q6H PRN PRN Reason: mild anxiety Last Admin: 08/20/25 14:56 Dose: 25 mg Ibuprofen (Ibuprofen 600 Mg Tablet) 600 mg PO Q6H PRN PRN Reason: Pain, Moderate(Pain Scale 4-6) Last Admin: 08/21/25 12:03 Dose: 600 mg Magnesium Hydroxide (Milk Of Magnesia 30 Ml Oral.Susp) 30 ml PO DAILY PRN PRN Reason: Constipation Melatonin (Melatonin 3 Mg Tablet) 6 mg PO BEDTIME PRN PRN Reason: Insomnia Last Admin: 08/20/25 20:19 Dose: 6 mg Nicotine Polacrilex (Nicotine Polacrilex 2 Mg Gum) 4 mg BUCCAL Q2H PRN PRN Reason: Nicotine Cravings Olanzapine (Olanzapine 5 Mg Tablet) 5 mg PO Q4H PRN PRN Reason: agitation Trazodone HCl (Trazodone Hcl 50 Mg Tablet) 50 mg PO BEDTIME MRX1 PRN PRN Reason: Insomnia Allergies Allergies Allergy/AdvReac Type Severity Reaction Status Date / Time No Known Allergies Allergy Verified 08/15/25 08:44 Assessment & Plan Assessment & Plan (1) Schizoaffective disorder, bipolar type: Status: Acute Code(s): F25.0 - Schizoaffective disorder, bipolar type (2) Chronic post-traumatic stress disorder (PTSD): Status: Acute Code(s): F43.12 - Post-traumatic stress disorder, chronic Plan Patient is a 25-year-old male with history of schizoaffective disorder and PTSD who presented to ER via ambulance after his mother requested assistance d/t patient having delusions secondary to medication noncompliance Plan: CV 15 minute safety checks obtain collateral Start: Abilify 5mg PO bedtime encourage medication compliance encourage groups discharge planning 08/19: Active on unit. social with peers. signed 3 day notice that is up 08/24/25. Patient reports feeling okay today; pt stated, I feel like the Abilify helped me sleep. I like that it makes me calm . Discussed increasing Abilify dose to 10mg PO bedtime; pt agreed. Patient focused on discharged; pt stated, I'm going to keep taking my medication, sleeping and not break the trespass order . denies SI/HI/VH/AH. Abilify increased to 10mg PO bedtime. 08/20: Active on unit. social with select peers. Showered. Patient reports feeling alright ; pt stated, I feel like the Abilify is good The Zyprexa makes me feel like crap. I feel calm with the Abilify. I'm going to keep taking it . Patient continues to deny SI/HI/VH/AH. Per nursing, pt slept 3 hours last night; pt reports this is d/t having room mates and not feeling comfortable . Continue tx plan. 08/21: No behavioral issues. Friendly w/ staff and peers. Sleep improved (4 hrs). Will continue current tx plan Reason for continued inpatient stay Substantial Risk for: med/psych decompensation Time Spent With Patient Time: Total time managing care of this patient today ____ minutes.
[2025-08-21 18:38] LABS: Appearance Urine Clear; Glucose Urine UA Negative (Negative); PH 6.5 (5.0-9.0); Specific Gravity - Urine 1.015 (1.005-1.025)
[2025-08-21] MEDS: Magnesium Hydrox/Alum Hydrox 30 ML ORAL.SUSP PO (19:05)
[2025-08-21 19:53] VITALS: BP 131/71; PULSE 100; RESP 16; TEMP 36.8; O2SAT 98
[2025-08-22 07:30] VITALS: BP 113/66; PULSE 110; RESP 16; TEMP 36.6; O2SAT 99
--- NOTE | 2025-08-22 08:58 | P.PNPSI_ITS ---
Subjective Subjective Date of Service: 08/22/25 Reason For Visit: Crisis Subjective Notes: 3 Day Interim History: chart reviewed, case discussed in morning report Per nursing report- slept 4 hrs Pt called a museum yesterday to try to sell an axe worth $2 million Pt greeted t/w in the hallway. Reports feeling 'great'. States that he slept 5 hrs.. I promise you. It was the best sleep I've had in my life . He reports that he had a nightmare after eating a Milky [employer] last night but was able to fall back to sleep after having an [place] ice and speaking w/ staff. Pt confirms that he called a museum yesterday to try to sell a axe made of diurite. He decided to send the museum a photo for them to make an offer, as he worried they would rip him off otherwise. Pt denies SI/violent ideation, AH/VH. He is agreeable w/ t/w's recommendation to titrate the abilify Denies med SE Appearance: Casually dressed. Grooming/hygiene wnl. Good eye contact Attitude:Cooperative Speech: Pressured but easily redirectable Motor activity: Calm and without any tics, tremors or dyskinesias. Steady gait Mood: 'great' Affect: appropriate Thought process: circumstantial Thought content: some grandiosity. Denies SI/violent ideation Perception: Denies AH/VH and does not appear to respond to internal stimuli Alert/oriented in all spheres Cognition grossly intact Insight: fair Judgment: fair Diagnostics Vital Signs (24Hr): Vital Signs - 24 hr 08/21/25 19:53 08/22/25 07:30 Temperature 98.3 F 97.9 F Pulse Rate 100 110 H Respiratory Rate 16 16 Blood Pressure 131/71 113/66 Pulse Oximetry 98 99 Oxygen Delivery Method Room Air Room Air BMI result Body Mass Index 26.4 Labs 08/15/25 08:58 08/18/25 07:44 Labs: Laboratory Results - last 48 hr 08/21/25 18:20 Urine Color Yellow Urine Appearance Clear Urine pH 6.5 Ur Specific [place] 1.015 Urine Protein Negative Urine Glucose (UA) Negative Urine Ketones Negative Urine Blood Negative Urine Nitrite Negative Ur Leukocyte Esterase Negative Medications Medications Current Medications Acetaminophen (Acetaminophen 325 Mg Tablet) 650 mg PO Q6H PRN PRN Reason: Headache/Pain, Scale 1-10 Al Hydroxide/Mg Hydroxide (Magnesium Hydrox/Alum Hydrox 30 Ml Oral.Susp) 30 ml PO Q6H PRN PRN Reason: Heartburn/Nausea Last Admin: 08/21/25 19:05 Dose: 30 ml Aripiprazole (Aripiprazole 10 Mg Tablet) 10 mg PO BEDTIME VIC Last Admin: 08/21/25 20:07 Dose: 10 mg Hydroxyzine HCl (Hydroxyzine Hcl 25 Mg Tablet) 25 mg PO Q6H PRN PRN Reason: mild anxiety Last Admin: 08/21/25 21:57 Dose: 25 mg Ibuprofen (Ibuprofen 600 Mg Tablet) 600 mg PO Q6H PRN PRN Reason: Pain, Moderate(Pain Scale 4-6) Last Admin: 08/22/25 07:44 Dose: 600 mg Magnesium Hydroxide (Milk Of Magnesia 30 Ml Oral.Susp) 30 ml PO DAILY PRN PRN Reason: Constipation Melatonin (Melatonin 3 Mg Tablet) 6 mg PO BEDTIME PRN PRN Reason: Insomnia Last Admin: 08/21/25 20:07 Dose: 6 mg Nicotine Polacrilex (Nicotine Polacrilex 2 Mg Gum) 4 mg BUCCAL Q2H PRN PRN Reason: Nicotine Cravings Olanzapine (Olanzapine 5 Mg Tablet) 5 mg PO Q4H PRN PRN Reason: agitation Trazodone HCl (Trazodone Hcl 50 Mg Tablet) 50 mg PO BEDTIME MRX1 PRN PRN Reason: Insomnia Allergies Allergies Allergy/AdvReac Type Severity Reaction Status Date / Time No Known Allergies Allergy Verified 08/15/25 08:44 Assessment & Plan Assessment & Plan (1) Schizoaffective disorder, bipolar type: Status: Acute Code(s): F25.0 - Schizoaffective disorder, bipolar type (2) Chronic post-traumatic stress disorder (PTSD): Status: Acute Code(s): F43.12 - Post-traumatic stress disorder, chronic Plan Patient is a 25-year-old male with history of schizoaffective disorder and PTSD who presented to ER via ambulance after his mother requested assistance d/t patient having delusions secondary to medication noncompliance Plan: CV 15 minute safety checks obtain collateral Start: Abilify 5mg PO bedtime encourage medication compliance encourage groups discharge planning 08/19: Active on unit. social with peers. signed 3 day notice that is up 08/24/25. Patient reports feeling okay today; pt stated, I feel like the Abilify helped me sleep. I like that it makes me calm . Discussed increasing Abilify dose to 10mg PO bedtime; pt agreed. Patient focused on discharged; pt stated, I'm going to keep taking my medication, sleeping and not break the trespass order . denies SI/HI/VH/AH. Abilify increased to 10mg PO bedtime. 08/20: Active on unit. social with select peers. Showered. Patient reports feeling alright ; pt stated, I feel like the Abilify is good The Zyprexa makes me feel like crap. I feel calm with the Abilify. I'm going to keep taking it . Patient continues to deny SI/HI/VH/AH. Per nursing, pt slept 3 hours last night; pt reports this is d/t having room mates and not feeling comfortable . Continue tx plan. 08/21: No behavioral issues. Friendly w/ staff and peers. Sleep improved (4 hrs). Will continue current tx plan 08/22: Will titrate Abilify to 15 mg to optimize tx of chauncey/psychosis. Pt agreeable w/ this plan. No behavioral issues. Patient educated on: medication risk/benefits and therapeutic strategies Informed Consent: understands Reason for continued inpatient stay Substantial Risk for: med/psych decompensation Time Spent With Patient Time: Total time managing care of this patient today ____ minutes.
[2025-08-22 20:00] VITALS: BP 124/85; PULSE 99; RESP 16; TEMP 36.7; O2SAT 98
--- NOTE | 2025-08-23 04:16 | PC.NURSE ---
patient has been making phone calls throughout the night calling 2 numbers he found in the newspaper for [employer] and then the [place] [employer] to report an ''issue with property'' all calls were polite but not appropriate for the situation
[2025-08-23 07:51] VITALS: BP 137/89; PULSE 100; RESP 20; TEMP 36.2; O2SAT 99
--- NOTE | 2025-08-23 09:04 | P.PNPSI_ITS ---
Subjective Subjective Date of Service: 08/23/25 Reason For Visit: Crisis Subjective Notes: 3 Day Interim History: Chart reviewed, case discussed w/ nursing staff 3-day up tomorrow, 08/24 Per nursing report- Med adherent. Delusional, made frequent calls. Called [employer] from [employer] [facility] in the middle of the night. Called non-emergency police line slept ~4 hrs last night and napped expansive Pt greeted t/w in the hallway [place]. Mr. Lindo here . Reports feeling great. I slept 3 and a half hours last night, which was great . States that the hospital saved my life... the melatonin helped with my sleep, the ibuprofen helped with my neck tension and the Abilfy-- I don't know how it helped but it helped . He is hoping to be d/c 'd tomorrow and expressed an understanding that it will be up to his primary team, who will return tomorrow. He reports that he made a point to make friend with everybody on the unit since he won't have enemies if he makes friends with everybody. He reports that it was exhausting at times. Denies SI/violent ideation, AHVH MSE: Appearance: Casually dressed. Grooming/hygiene wnl. Good eye contact Attitude:Cooperative Speech: generally wnl Motor activity: Calm and without any tics, tremors or dyskinesias. Steady gait Mood: as noted above Affect: bright, somewhat anxious Thought process: goal directed Thought content: as noted above. Perception: Denies AH/VH and does not appear to respond to internal stimuli Alert/oriented in all spheres Cognition grossly intact Insight: impaired Judgment: fair Medication Compliance: Yes Side effects from medications: No Diagnostics Vital Signs (24Hr): Vital Signs - 24 hr 08/22/25 20:00 08/23/25 07:51 Temperature 98.1 F 97.2 F Pulse Rate 99 100 Respiratory Rate 16 20 Blood Pressure 124/85 137/89 Pulse Oximetry 98 99 Oxygen Delivery Method Room Air Room Air BMI result Body Mass Index 26.4 Labs 08/15/25 08:58 08/18/25 07:44 Labs: Laboratory Results - last 48 hr 08/21/25 18:20 Urine Color Yellow Urine Appearance Clear Urine pH 6.5 Ur Specific [place] 1.015 Urine Protein Negative Urine Glucose (UA) Negative Urine Ketones Negative Urine Blood Negative Urine Nitrite Negative Ur Leukocyte Esterase Negative Medications Medications Current Medications Acetaminophen (Acetaminophen 325 Mg Tablet) 650 mg PO Q6H PRN PRN Reason: Headache/Pain, Scale 1-10 Al Hydroxide/Mg Hydroxide (Magnesium Hydrox/Alum Hydrox 30 Ml Oral.Susp) 30 ml PO Q6H PRN PRN Reason: Heartburn/Nausea Last Admin: 08/21/25 19:05 Dose: 30 ml Aripiprazole (Aripiprazole 15 Mg Tablet) 15 mg PO BEDTIME VIC Last Admin: 08/22/25 20:08 Dose: 15 mg Hydroxyzine HCl (Hydroxyzine Hcl 25 Mg Tablet) 25 mg PO Q6H PRN PRN Reason: mild anxiety Last Admin: 08/23/25 01:16 EST Dose: 25 mg Ibuprofen (Ibuprofen 600 Mg Tablet) 600 mg PO Q6H PRN PRN Reason: Pain, Moderate(Pain Scale 4-6) Last Admin: 08/23/25 02:02 Dose: 600 mg Magnesium Hydroxide (Milk Of Magnesia 30 Ml Oral.Susp) 30 ml PO DAILY PRN PRN Reason: Constipation Melatonin (Melatonin 3 Mg Tablet) 6 mg PO BEDTIME PRN PRN Reason: Insomnia Last Admin: 08/22/25 20:08 Dose: 6 mg Nicotine Polacrilex (Nicotine Polacrilex 2 Mg Gum) 4 mg BUCCAL Q2H PRN PRN Reason: Nicotine Cravings Olanzapine (Olanzapine 5 Mg Tablet) 5 mg PO Q4H PRN PRN Reason: agitation Trazodone HCl (Trazodone Hcl 50 Mg Tablet) 50 mg PO BEDTIME MRX1 PRN PRN Reason: Insomnia Allergies Allergies Allergy/AdvReac Type Severity Reaction Status Date / Time No Known Allergies Allergy Verified 08/15/25 08:44 Assessment & Plan Assessment & Plan (1) Schizoaffective disorder, bipolar type: Status: Acute Code(s): F25.0 - Schizoaffective disorder, bipolar type (2) Chronic post-traumatic stress disorder (PTSD): Status: Acute Code(s): F43.12 - Post-traumatic stress disorder, chronic Plan Patient is a 25-year-old male with history of schizoaffective disorder and PTSD who presented to ER via ambulance after his mother requested assistance d/t patient having delusions secondary to medication noncompliance Plan: CV 15 minute safety checks obtain collateral Start: Abilify 5mg PO bedtime encourage medication compliance encourage groups discharge planning 08/19: Active on unit. social with peers. signed 3 day notice that is up 08/24/25. Patient reports feeling okay today; pt stated, I feel like the Abilify helped me sleep. I like that it makes me calm . Discussed increasing Abilify dose to 10mg PO bedtime; pt agreed. Patient focused on discharged; pt stated, I'm going to keep taking my medication, sleeping and not break the trespass order . denies SI/HI/VH/AH. Abilify increased to 10mg PO bedtime. 08/20: Active on unit. social with select peers. Showered. Patient reports feeling alright ; pt stated, I feel like the Abilify is good The Zyprexa makes me feel like crap. I feel calm with the Abilify. I'm going to keep taking it . Patient continues to deny SI/HI/VH/AH. Per nursing, pt slept 3 hours last night; pt reports this is d/t having room mates and not feeling comfortable . Continue tx plan. 08/21: No behavioral issues. Friendly w/ staff and peers. Sleep improved (4 hrs). Will continue current tx plan 08/22: Will titrate Abilify to 15 mg to optimize tx of chauncey/psychosis. Pt agreeable w/ this plan. No behavioral issues. 08/23: Continue current tx plan. 3-day up tomorrow. Reason for continued inpatient stay Substantial Risk for: med/psych decompensation Time Spent With Patient Time: Total time managing care of this patient today ____ minutes.
[2025-08-23 20:00] VITALS: BP 131/68; PULSE 98; RESP 18; TEMP 36.7; O2SAT 99
[2025-08-24 07:50] VITALS: BP 123/78; PULSE 83; RESP 16; TEMP 36.6; O2SAT 100
--- NOTE | 2025-08-24 10:04 | PM.PSYDC ---
DS: Providers Provider Date of Service: 08/24/25 Date of admission: 08/17/25 12:17 Date of discharge: 08/24/25 Primary care physician: Unknown Physician Admitting clinician: Cheryl Orlando Attending physician on admission: Dami Robles Attending physician on discharge: Dami Robles Discharging clinician: Cheryl Orlando DS: Diagnosis Discharge Diagnosis (1) Schizoaffective disorder, bipolar type: Status: Acute (2) Chronic post-traumatic stress disorder (PTSD): Status: Acute DS: Medications Discharge Medications Home Medications: Home Medications ?Medication ?Instructions ?Recorded ?Confirmed olanzapine 10 mg tablet 10 mg PO DAILY 08/15/25 08/15/25 Mental Status Exam Mental Status Exam Narrative: Pt is alert and oriented; behavior is cooperative, friendly and calm; dressed in casual attire; mood is described as good ; eye contact appropriate; Speech is normal rate, volume and not pressured; thought process is organized and goal directed; Thought content is on discharge; grandiose; denies any SI/HI/VH/AH. Data Data Completed and Pending Completed studies during hospitalization [Text1]: 08/18/25 08/21/25 07:44 18:20 Sodium 141 Potassium 4.3 Chloride 107 Carbon Dioxide 26 Anion Gap 12 BUN 16 Creatinine 0.90 Estim Creat Clear Calc 131.3 Estimated GFR > 60 Random Glucose 94 Estimat Average Glucose 105 Hemoglobin A1c % 5.3 Calcium 9.7 Total Bilirubin 0.2 AST 85 H ALT 113 H Alkaline Phosphatase 76 Total Protein 7.1 Albumin 4.8 Triglycerides 228 H Cholesterol 148 LDL Cholesterol, Calc 59 HDL Cholesterol 44 Urine Color Yellow Urine Appearance Clear Urine pH 6.5 Ur Specific [place] 1.015 Urine Protein Negative Urine Glucose (UA) Negative Urine Ketones Negative Urine Blood Negative Urine Nitrite Negative Ur Leukocyte Esterase Negative DS: Summary Hospital Course Hospital Course: Patient is a 25-year-old male with history of schizoaffective disorder and PTSD who presented to ER via ambulance after his mother requested assistance d/t patient having delusions secondary to medication noncompliance. Per crisis report, patient has been off his medications since the beginning of the summer which has escalated his paranoia and delusions. Per patient's mother, patient has been struggling with sleeping in comes into her room at all hours of the night making demands. Last evening patient had left the home and was found sitting at a diner which is mother found troublesome. Patient presented with pressured and rapid speech. Tangential, flight of ideas. Grandiose. He denied SI/HI. Patient denied hallucinations but appeared internally preoccupied. Patient is unclear how he ended up at the hospital as the last thing he remembers was being at the [employer] in [place] returning his favorite ring. Upon speaking with his mother, she reported that patient has a no trespass order against him due to harassing a female staff at this restaurant. Patient's mother reports he was gradually weaned off his medication by his psychiatric nurse practitioner. Patient's mother is unsure of the rationale as patient has been compliant with his medications and was not experiencing any psychiatric symptoms at the time. Since discontinuing medication, patient had reportedly spent nearly 10,000 dollars, giving away the majority of it. And he has displayed threatening behavior with knives towards family members. As a safety precaution, he had been moved to the living room couch. History of medication noncompliance. History of alcohol and marijuana use. Patient denies any current substance use. U tox positive for marijuana. During admission assessment, patient presents alert and oriented x3. Calm and cooperative. Patient stated, I had a [place] world war [employer] ring. It is a historical matter. I was in fear for my life because I was worried somebody would mug me for the ring. I am hoping the [employer] can return to [facility] for it to be in a museum. When asked about it is his spending 10,000 dollars; patient stated, my personal finances is my personal business. I do not know where the money went. I donated most of it to you to creatators. Patient was asked about if he had been threatening his family; patient stated, there is no evidence of that. I am not going to incriminate myself or my family. I did not threaten anyone with a knife. Patient denies SI/HI/VH/AH. Patient reports that he is no longer taking olanzapine. Patient stated, I tapered off a long time ago. My provider told me that I no longer needed it. Patient reports that he came to the hospital because he just needed some sleep and food. Discussed starting on Abilify; risks/benefits reviewed. Patient agreed to trial. Start Abilify 5 mg PO bedtime. Plan: CV 15 minute safety checks obtain collateral Start: Abilify 5mg PO bedtime encourage medication compliance encourage groups discharge planning Active on unit. social with peers. signed 3 day notice that is up 08/24/25. Patient reports feeling okay today; pt stated, I feel like the Abilify helped me sleep. I like that it makes me calm . Discussed increasing Abilify dose to 10mg PO bedtime; pt agreed. Patient focused on discharged; pt stated, I'm going to keep taking my medication, sleeping and not break the trespass order . denies SI/HI/VH/AH. Abilify increased to 10mg PO bedtime. Active on unit. social with select peers. Showered. Patient reports feeling alright ; pt stated, I feel like the Abilify is good The Zyprexa makes me feel like crap. I feel calm with the Abilify. I'm going to keep taking it . Patient continues to deny SI/HI/VH/AH. Per nursing, pt slept 3 hours last night; pt reports this is d/t having room mates and not feeling comfortable . Continue tx plan. No behavioral issues. Friendly w/ staff and peers. Sleep improved (4 hrs). Will continue current tx plan Will titrate Abilify to 15 mg to optimize tx of chauncey/psychosis. Pt agreeable w/ this plan. No behavioral issues. Continue current tx plan. 3-day up tomorrow. Patient reports feeling good today; focused on discharge. Does not want to retract 3 day notice. 3 day notice up 08/24/25. Patient stated, I plan on taking my medications. I promise. I won't break my trespass order either . 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 denies SI/HI/VH/AH. Patient reports he plans on following up with his outpatient providers. Status at Discharge Cognitive/behavioral status at discharge: Patient has insight and demonstrates good judgment in terms of wanting to pursue treatment. Patient has a safety plan that includes presenting to the closest ER or calling 911 if feeling unsafe. Functional status at discharge: independent ambulation Overall status at discharge: patient is back to baseline Time Spent with Patient Time attestation: Total time managing care of this patient today _20___ minutes. Time spent: Less than 30 minutes Discharge Plan Discharge Anticipated Discharge Date/Time: 08/24/25 10:30 Patient Disposition: Home, Self-Care Discharge Diagnosis: Schizoaffective d/o, PTSD Referrals: Vincent Haley (Therapy) [Other] - 08/28/25 8:15 am Referral Note: IN OFFICE APPOINTMENT Aminah Gudino (Psychiatry) [Other] - 09/10/25 2:10 pm Referral Note: TELEHEALTH APPOINTMENT [facility] [Provider Group] - 1 Week Referral Note: 08-24-25 [facility] was added to patients chart. Please call [phone] to schedule a follow up appt within 7-10 days of discharge. Discharge Medications: New melatonin 3 mg Tablet 6 mg PO BEDTIME PRN (Reason: Insomnia) 30 Days Qty: 60 0RF ibuprofen 600 mg Tablet 600 mg PO Q6H PRN (Reason: Pain, Moderate(Pain Scale 4-6)) 7 Days Qty: 10 0RF hydroxyzine HCl 25 mg Tablet 25 mg PO BID PRN (Reason: mild anxiety) 30 Days Qty: 60 0RF aripiprazole 15 mg Tablet 15 mg PO BEDTIME 30 Days Qty: 30 0RF Discontinued olanzapine 10 mg tablet 10 mg PO DAILY Patient Comments: My doctor weaned me off this medication months ago. Discharge Orders: Discharge Order (Routine); Ordered 08/24/25 Ordered By: Cheryl Orlando Diet: Regular diet Activity on Discharge: As tolerated Stand Alone Forms: Patient Portal Discharge page, Community Support Print Language: Luxembourger Care Plan Goals: Maintain mood and safe behaviors Take medications as prescribed Practice coping skills Continue with outpatient providers and reach out to them as needed Health Concerns: Mood stability and behaviors Plan of Treatment: Follow up with your PCP, psychiatric provider and other outpatient providers regarding above concerns Take medications as prescribed Assessment: Patient has insight and demonstrates good judgment in terms of wanting to pursue treatment. Patient has a safety plan that includes presenting to the closest ER or calling 911 if feeling unsafe. Discharge Date/Time: 08/24/25 10:35
== END 2025-08-24 10:35 | disposition home or self-care (01) | DRG 885 ==
LOC: HO.ED 08-17 12:39 → HO.PADLT16 08-17 13:38
PROVIDERS: Nurse Practitioner Psychiatric/Mental Health; Physician Assistant Medical; Admitting Provider Registered Nurse; Emergency Provider Emergency Medicine Emergency Medical Services; Responsible Provider Registered Nurse; Visit Provider Psychiatry & Neurology Psychiatry
DX: F25.0 Schizoaffective disorder, bipolar type (principal); F43.12 Post-traumatic stress disorder, chronic; Z87.891 Personal history of nicotine dependence; Z79.899 Other long term (current) drug therapy
CPT/HCPCS: 36415; 80053; 80061; 80143; 80179; 80307; 81003; 83036; 85025; 93005; 99285; S9485

== ENCOUNTER → 2025-08-17 08:23 | Outpatient (BNV) | payer MEDICARE, MEDICAID, SELFPAY | PROVIDERS: Admitting Provider Registered Nurse; Emergency Provider Emergency Medicine Emergency Medical Services; Visit Provider Internal Medicine | DX: Z13.6 Encounter for screening for cardiovascular disorders (principal) | CPT/HCPCS: 93010 ==

== ENCOUNTER → 2025-08-17 12:17 | Outpatient (BNV) | payer MEDICARE, MEDICAID, SELFPAY | PROVIDERS: Admitting Provider Registered Nurse; Emergency Provider Emergency Medicine Emergency Medical Services; Visit Provider Nurse Practitioner Family | DX: F25.0 Schizoaffective disorder, bipolar type (principal) | CPT/HCPCS: 99221 ==

== ENCOUNTER → 2025-08-17 12:17 | Outpatient (BNV) | payer MEDICARE, MEDICAID, SELFPAY | PROVIDERS: Admitting Provider Registered Nurse; Emergency Provider Emergency Medicine Emergency Medical Services; Visit Provider Registered Nurse | DX: F25.0 Schizoaffective disorder, bipolar type (principal); F43.12 Post-traumatic stress disorder, chronic | CPT/HCPCS: 90792 ==

== ENCOUNTER 2025-09-21 09:36 | Inpatient (IN) | payer MEDICARE, MEDICAID, SELFPAY ==
[2025-09-21 09:47] VITALS: BP 119/81; PULSE 102; PULSE 97; RESP 15; TEMP 36.5; O2SAT 98; BMI 21.0
[2025-09-21 09:50] VITALS: RESP 14
--- NOTE | 2025-09-21 09:56 | PC.NURSE ---
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 Pt details to this RN how he has been exchanging letters with the president and he is on a top secret mission that cannot be interrupted. He reports that he will stay here for a week and then be discharged . Pt extremely disorganized upon arrival, pacing, hyperverbal, repeating over and over how he works with the [employer]. Pt is intrusive into other conversations but does respond well to redirection. Pt was seen by [facility] in the community and plan is for inpatient bedsearch
--- NOTE | 2025-09-21 10:18 | ED_ITS ---
HPI - Psych General Chief Complaint: Psychiatric Symptoms Stated Complaint: SEC 12,SUB ABUSE,NON MED COMP,ETOH,DELUSIONS Time Seen by Provider: 09/21/25 09:41 Source: patient and RN notes reviewed Mode of arrival: ambulatory Limitations: no limitations History of Present Illness ED Provider: Hyacinth Woods PA-C HPI Narrative: This is a 25-year-old male, with a past medical history of PTSD, bipolar disorder, and schizoaffective disorder who presents emergency department on section 12 due to increased delusions in relation to working for the [employer] and being on top seek admissions for the president. Patient reports that he is currently on Abilify, hydroxyzine, melatonin, states that he only takes the hydroxyzine and melatonin. Last took Abilify 2 weeks ago. Patient denies any suicidal or homicidal ideation. No auditory or visual hallucinations. Patient has no current complaints. No other complaints or concerns at this time. MD complaint: other (Delusion) Relieving factors: none Exacerbating factors: none Associated symptoms: denies other symptoms Treatments prior to arrival: placed on mental health hold Related Data Previous Rx's ?Medication ?Instructions ?Recorded hydroxyzine HCl 25 mg tablet 25 mg PO BID PRN mild anx iety 30 08/24/25 days #60 tabs aripiprazole 15 mg tablet 15 mg PO BEDTIME 30 days #30 tabs 09/28/25 ibuprofen 600 mg tablet 600 mg PO TID PRN Pain, 06/15 Moderate(Pain Scale 4-6) 14 days #21 tabs melatonin 3 mg tablet 6 mg (2 x 3 mg) PO BEDTIME 1 11/29/24 Insomnia 30 days #60 tabs Allergies Allergy/AdvReac Type Severity Reaction Status Date / Time No Known Allergies Allergy Verified 09/21/25 09:49 Review of Systems 2 Review of Systems: Constitutional : No Fever, No Chills ENT/Mouth : No sore throat, No Rhinorrhea Eyes: No Eye Pain, No Swelling, No Redness Cardiovascular : No Chest Pain, No SOB Respiratory : No Cough, No Sputum Gastrointestinal : No Nausea, No Vomiting, No Diarrhea, No abdominal Pain Genitourinary : No Dysuria, No Hematuria Musculoskeletal : No joint pain, No Myalgias, No Joint Swelling Skin : No Skin Lesions Neuro : No Weakness, No Numbness, No Headache All other systems reviewed and are negative Yes all other systems are reviewed and are negative Constitutional: Constitutional: Reports as per HPI [facility] Past Medical History Medical History Schizoaffective disorder, bipolar type Alcohol abuse Social History Social History Household Members: Family Household Members Other:: Mom, her bf, grandmother Housing: House Do you presently have visiting nurse or other home services: No Alcohol intake: current Alcohol intake frequency: 3 or more drinks per day Alcohol type: beer and hard liquor Patient Tobacco Use Status: Former Tobacco user Tobacco use type: Cigarette Smoked in Last 30 Days: No e-Cigarette/Vaping Use: Never Used Patient Interested in Nicotine Replacement: No Second Hand Smoke Exposure: No Use of substances other than those prescribed or required for medical reasons: No Substance Use Type: Caffiene Currently Displaying Signs/Symptoms of Drug Intoxication Withdrawal: No Have you been hit, kicked, punched, or otherwise hurt by someone within the past year? If so, by whom?: No Do you feel safe in your current relationship?: No Current Relationship Is there a partner from a previous relationship who is making you feel unsafe now?: No Are you made to feel afraid or neglected: No Advance Directives: No Advance Directives Information Provided: No Do you have thoughts of harming others: None Do you have a plan to hurt others: No Plan Recently lost weight without trying: No Eating poorly because of decreased appetite: No Nutrition Risks: No Nutritional Risk Poor oral hygiene: No service: No Sexual orientation: Straight/Heterosexual Physical Exam 2 Vital Signs: Vital Signs: Last Vital Signs Temp 97.4 F 09/28/25 08:00 Pulse 83 09/28/25 08:00 Resp 16 09/28/25 08:00 BP 126/70 09/28/25 08:00 Pulse Ox 100 09/28/25 08:00 O2 Del Method Room Air 09/28/25 08:00 BMI result Body Mass Index 21.0 Const: General: cooperative, comfortable and no acute distress O rientation/consciousness: patient oriented x3 Limitations: no limitations HEENT: Head: Yes normal to inspection, Yes normocephalic and Yes atraumatic Ears: hearing grossly normal bilaterally General nose exam: Normal external nose present Face and sinus: Yes normal facial exam Mouth: Normal oral and palatal mucosa present, oropharynx normal and moist mucous membranes Throat: Yes posterior oropharynx normal Eyes: General: appearance normal, both eyes and all related structures E yelids: Yes eyelids normal Conjunctivae: conjunctivae normal Sclerae: s clerae normal Pupils: Equal, round and reactive pupils present EOM: EOMs intact bilaterally Neck: Neck: Yes normal visual inspection, Yes full ROM and Yes no lymphadenopathy Lymphatic: no lymphadenopathy noted Chest: Chest palpation & inspection: normal inspection of the chest Resp: Effort & Inspection: normal respiratory effort and able to speak in complete sentences Auscultation: clear to auscultation bilaterally, no crackles, no rales, no rhonchi and no wheezes Cardio: Rate: regular rate Rhythm: regular rhythm Heart sounds: S1 normal heart sound present and S2 normal heart sound present GI: Inspection: Yes normal to inspection Skin: General skin exam: no rashes or lesions noted Trauma: no lacerations or abrasions Wounds: no wounds Neuro: General: patient oriented x3 and moves all extremities Cranial nerves: Yes Equal, round and reactive pupils present Extrem: General: Yes normal to inspection Right upper extremity: normal to inspection Left upper extremity: normal to inspection Right lower extremity: normal to inspection Left lower extremity: normal to inspection Psych: Appearance: well kempt Speech and movement: Pressured speech present Medications Administered Generic Name Dose Route Start Last Admin Trade Name Freq PRN Reason Stop Dose Admin Aripiprazole 15 mg 09/21/25 21:00 09/27/25 20:17 Aripiprazole 15 Mg Tablet PO 15 mg BEDTIME VIC Administration Calcium Carbonate 750 mg 09/24/25 13:30 09/25/25 19:51 Calcium Carbonate 750 Mg Tab.Chew PO 750 mg Q4H PRN Administration Heartburn Ibuprofen 600 mg 09/22/25 21:31 09/28/25 07:53 Ibuprofen 600 Mg Tablet PO 600 mg Q8H PRN Administration Pain, Moderate(Pain Scale 4-6) Melatonin 6 mg 09/21/25 10:52 09/27/25 20:16 Melatonin 3 Mg Tablet PO 6 mg BEDTIME PRN Administration Insomnia Discontinued Medications Generic Name Dose Route Start Last Admin Trade Name Freq PRN Reason Stop Dose Admin Hydroxyzine HCl 25 mg 09/21/25 10:52 09/23/25 09:59 Hydroxyzine Hcl 25 Mg Tablet PO 25 mg BID PRN Administration mild anxiety Lorazepam 2 mg 09/21/25 10:18 09/21/25 10:21 Lorazepam 1 Mg Tablet PO 09/21/25 10:19 2 mg ONCE ONE Administration Medical Decision Making Medical Decision Making [facility] Narrative: This is a 25-year-old male, with a past medical history of schizoaffective disorder, bipolar, and PTSD, who presents emergency department due to increased delusions. He is on a section 12. Previous psychiatric admissions in the past. He has no physical complaints. Vital signs within normal limits. He has no SI or HI. Patient was irritating other patients in the therefore patient was medicated with Ativan. Plan: Labs, UA, care team consultation. 11:29 AM 09/21/2025 (Hyacinth Woods PA-C): Patient was already seen by [facility] in the community. Still awaiting U tox and urinalysis, patient will be made a inpatient level of care bed search. We will continue to closely monitor. 5:36 PM 09/21/2025 (Hyacinth Woods PA-C): Urine with no evidence of UTI, U tox positive for marijuana. Patient medically clear, awaiting care team consultation. 11:38 hours, Date: 09/22/25 Provider: Bautista Parekh MD Physician observation ended at 11:38 hours. Patient admitted to [facility] inpatient psychiatric unit, M3. Differential Diagnosis Differential Diagnoses: The differential diagnosis associated with the presentation includes Schizo affective disorder, medication noncompliance, EtOH abuse, polysubstance abuse, anxiety, depression Lab Data [facility] Lab Attestation statement: I reviewed the patient's lab results. Patient with no leukocytosis, H&H stable, chemistry revealing slight elevation in ALT at 56, albumin elevated at 5.5, ethyl alcohol 229. 09/21/25 10:17 09/21/25 10:17 Labs: Lab Results 09/21/25 09/21/25 Range/Units 10:17 16:47 WBC 6.0 (4.8-10.8) X10*3/uL RBC 5.28 (4.60-5.80) X10*6/uL Hgb 15.2 (14.0-18.0) g/dl Hct 47.0 (42.0-52.0) % MCV 89.0 (80.0-98.0) fL MCH 28.8 (27.0-33.0) pg MCHC 32.3 (31.0-36.0) g/dl RDW 12.9 (11.0-16.0) % Plt Count 340 (160-400) X10*3/uL MPV 9.9 (9.4-12.4) fL Immature Gran % (Auto) 0.3 (0.0-0.4) % Neut % (Auto) 61.1 (45-73) % Lymph % (Auto) 30.0 (20-40) % [place] % (Auto) 7.8 (2-11) % Eos % (Auto) 0.5 (0-4) % Baso % (Auto) 0.3 (0-2) % Lymph # (Auto) 1.8 (1.2-4.9) X10*3/uL [place] # (Auto) 0.5 (0.1-1.2) X10*3/uL Eos # (Auto) 0.0 (0.0-0.4) X10*3/uL Baso # (Auto) 0.0 (0.0-0.2) X10*3/uL Abs Immat Gran (auto) 0.02 (0.00-0.03) X10*3/uL Absolute Neuts (auto) 3.7 (2.0-8.3) x10*3/uL Absolute Nucleated RBC 0.000 (0.0-0.012) X10*3/uL Nucleated RBC % (auto) 0.0 (0.0-0.2) /100WBC Sodium 145 (135-145) mmol/L Potassium 4.2 (3.3-5.1) mmol/L Chloride 109 H (96-108) mmol/L Carbon Dioxide 26 (22-29) mmol/L Anion Gap 14 (12-20) BUN 13 (9-16) mg/dL Creatinine 0.89 (0.5-1.4) mg/dL Estim Creat Clear Calc 103.9 Estimated GFR > 60 Random Glucose 106 (60-115) mg/dL Calcium 9.8 (8.4-10.2) mg/dL Total Bilirubin 0.3 (0.0-1.0) mg/dL AST 33 (5-37) U/L ALT 56 H (0-40) U/L Alkaline Phosphatase 71 (39-117) U/L Total Protein 7.9 (6.5-8.0) g/dL Albumin 5.5 H (3.5-5.0) g/dL Urine Color Yellow Urine Appearance Clear Urine pH 5.5 (5.0-9.0) Ur Specific [place] >= 1.030 H (1.005-1.025) Urine Protein 30 (1+) H (Neg-Trace) mg/dL Urine Glucose (UA) Negative (Negative) mg/dL Urine Ketones 15 (Negative) mg/dL Urine Blood Negative (Negative) Urine Nitrite Negative (Negative) Ur Leukocyte Esterase Negative (Negative) Urine RBC 0-2 (0-2) /HPF Urine WBC 0-5 (0-5) /HPF Ur Squamous Epith Cells 0-2 (0-2) /HPF Urine Bacteria None Seen (None Seen) Hyaline Casts 0-2 (0-2) /LPF Urine Opiates Screen Not Detected (Not Detect) Ur Buprenorphine Scrn Not Detected (Not Detect) ng/mL Ur Oxycodone Screen Not Detected (Not Detect) ng/mL Urine Methadone Screen Not Detected (Not Detect) ng/mL Urine Fentanyl Screen Not Detected (Not Detect) Ur Barbiturates Screen Not Detected (Not Detect) Ur Phencyclidine Scrn Not Detected (Not Detect) Ur Amphetamines Screen Not Detected (Not Detect) U Benzodiazepines Scrn Not Detected (Not Detect) Urine Cocaine Screen Not Detected (Not Detect) U Marijuana (THC) Screen POSITIVE H (Not Detect) Ethyl Alcohol 229 mg/dL Discharge Plan Discharge Clinical Impression: Schizoaffective disorder, bipolar type Patient Disposition: Admitted As Inpatient Interventions: Admission Worksheet (ED) Last Done: 09/22/25 11:38 Discharge Date/Time: 09/22/25 11:55
[2025-09-21 10:20] LABS: MANUAL DIFF FLAG NO
[2025-09-21 10:25] LABS: Hematocrit 47.0 % (42.0-52.0); Hemoglobin 15.2 g/dl (14.0-18.0); Imm Gran Abs Auto 0.02 X10*3/uL (0.00-0.03); Imm Gran Pct Auto 0.3 % (0.0-0.4); Lymphocytes Absolute Auto 1.8 X10*3/uL (1.2-4.9); Mean Corpuscular HGB Conc 32.3 g/dl (31.0-36.0); Mean Corpuscular Hemoglobin 28.8 pg (27.0-33.0); Mean Corpuscular Volume 89.0 fL (80.0-98.0); NRBC Abs Auto 0.000 X10*3/uL (0.0-0.012); NRBC Pct Auto 0.0 /100WBC (0.0-0.2); Platelet Count 340 X10*3/uL (160-400); Red Blood Count 5.28 X10*6/uL (4.60-5.80); White Blood Count 6.0 X10*3/uL (4.8-10.8)
[2025-09-21 10:45] LABS: Alanine Aminotransferase 56 U/L (0-40); Albumin Level 5.5 g/dL (3.5-5.0); Alkaline Phosphatase 71 U/L (39-117); Anion Gap 14 (12-20); Aspartate Amino Transferase 33 U/L (5-37); Blood Urea Nitrogen 13 mg/dL (9-16); Calcium 9.8 mg/dL (8.4-10.2); Carbon Dioxide 26 mmol/L (22-29); Chloride 109 mmol/L (96-108); Creatinine Clr Calc Pharmacy 103.9; Estimated Glomerular Filt Rate > 60; Potassium 4.2 mmol/L (3.3-5.1); Sodium 145 mmol/L (135-145); Total Protein 7.9 g/dL (6.5-8.0)
--- NOTE | 2025-09-21 11:12 | PC.NURSE ---
Pt willingly took PO Ativan without issue, now resting in bed, respirations even and unlabored
--- OUTSIDE RECORDS SUMMARY | 2025-09-21 14:08 | XMS_ITS | Clinical Summary ---
Author Organization [employer] Address [address] [place] [address] Care Team Providers Care Fur Cleaner Name Role Phone Provider, Not In System [...] Screening 04/05/2024 04/05/2023 COVID-19 Vaccine (1 - 2024-2 6 season) 2025 Influenza Vaccine (#1) 2025 Dental [...] Most Recently Relevant to Health Maintenance Insurance [facility] C3 DENTAL-[facility] MEDICAID STAND ADULT * Guarantor: Florentino Lindo Account Type Relation to Patient Date of Phone Billing Address Dental Self Care Teams Fur Cleaner Relationship Specialty Start Date End Date Provider, Not In System PCP - General Family Medicine 05/12/25
--- OUTSIDE RECORDS SUMMARY | 2025-09-21 14:08 | XMS_ITS | Encounter Summary ---
Author Organization [employer] Address [address] [place] [address] Care Team Providers Care Steel Crane Operator Name Role Phone Caden Chase Unassigned Primary Care Provider U navailable Provider, Not In System Primary Care Provider Un available Reason for Visit * Reason Onset Date Comments referral 07/25/2023 Encounter Details Date Type Department Care Team ([facility] st Contact Info) Description 07/25/2023 Telephone C [facility] [address] [place] [address] Riky Nunez DDS [address] [place] [address] referral Social History Tobacco Use Types Packs/Day [...] on filedocumented in this encounter Care Teams Steel Crane Operator Relationship Specialty Start Date End Date Caden Chase Unassigned PCP - General Family Medicine 04/02/23 05/11/25 Provider, Not In System PCP - General Family Medicine 05/12/25 documented as of this encounter
--- OUTSIDE RECORDS SUMMARY | 2025-09-21 14:08 | XMS_ITS | Encounter Summary ---
Author Organization [facility] Address [address] [place] [address] [address] [place] [id number] Care Team Providers Care Quarry Equipment Operator Name Role Phone Caden Chase Unassigned Primary Care Provider U navailable Provider, Not In System Primary Care Provider Un available Encounter Details Date Type Department Care Team (Late st Contact Info) Description 10/10/[address] [id number] Perla Guadarrama MD [address] [place] [id number] Social History Tobacco Use Types Packs/Day Years [...] on filedocumented in this encounter Care Teams Quarry Equipment Operator Relationship Specialty Start Date End Date Caden Chasessigned PCP - General Family Medicine 04/02/23 05/11/25 Provider, Not In System PCP - General Family Medicine 05/12/25 documented as of this encounter
[2025-09-21 16:36] VITALS: BP 125/68; PULSE 110; RESP 18; TEMP 36.3; O2SAT 98
[2025-09-21 17:06] LABS: Appearance Urine Clear; Glucose Urine UA Negative (Negative); PH 5.5 (5.0-9.0); Specific Gravity - Urine >= 1.030 (1.005-1.025); UMIC TRIGGER UACC YES
[2025-09-21 17:19] LABS: Cannabinoid Screen Urine POSITIVE (Not Detect)
--- NOTE | 2025-09-21 22:27 | MHC.CARE ---
Pt will be adult [facility]. Section 12a in chart for safety
[2025-09-22 06:41] VITALS: BP 113/70; PULSE 72; RESP 20; TEMP 36.4; O2SAT 97
--- NOTE | 2025-09-22 08:58 | ECG_ITS ---
Test Reason : prolong qtc Blood Pressure : */* mmHG Vent. Rate : 69 BPM Atrial Rate : 69 BPM P-R Int : 176 ms QRS Dur : 88 ms QT Int : 342 ms P-R-T Axes : 51 65 10 degrees QTcB Int : 366 ms Sinus rhythm with marked sinus arrhythmia Otherwise normal ECG When compared with ECG of 17-Aug-2025 09:04, No significant change was found Referred By: Hardik Salmon Electronically Signed By: ZOHREH SHABAZZ
--- NOTE | 2025-09-22 10:59 | PC.NURSE ---
Care assumed 0700, Pt calls his mother repeatedly, he is rude and demanding to her with each conversation. Limits are set with phone use. Pt continues to have delusional conversations, pace the unit and stands as far away from others as possible. He denies SI/HI
--- NOTE | 2025-09-22 11:47 | MHC.EDTECH ---
Patient mother came to pickling tank operator phone at patients request. Given to security.
[2025-09-22 12:39] VITALS: BP 130/80; PULSE 84; RESP 16; TEMP 36.7; O2SAT 98; BMI 25.7
--- NOTE | 2025-09-22 13:50 | P.HPPS_ITS ---
HPI Date of Service: 09/22/25 Chief Complaint: decompensated schizoaffetive d/o Sources of Information: patient interviewed, chart reviewed and crisis/core team assessment reviewed HPI Subjective Notes: Mendoza Warning and 3 Day Narrative: Mr. Duffy is a 25 y/o SWM with h/o schizoaffective disorder bipolar type and PTSD who was evaluated by Crisis due to his mother's concerns about him calling the police, telling them he has classified information and stating that his mother abuses him. He was transferred to [facility] for safety and stabilization. Per Crisis report, pt reported talking w/ the [employer], FBI, and Camille re: highly classified information. He reportedly stated that he quit taking Abilify 2 wks ago and has been drinking alcohol instead bc alcohol helps me survive . Pt's mother reported that she doesn't currently feel safe w/ pt in the home and the protective officer present during the assessment reported that he has come to pt's home multiple times and that pt had called [employer] reporting that people were tapping his phone. Mother reportedly informed Crisis that pt has been inviting homeless people to the home and can be verbally aggressive. She reportedly wants him to go to a fpc and his grandmother is going to end up kicking him out if his behavior continues and he will end up homeless. Pt reports I've been going through a lot . He's been stressed since he lost a Nazi WWII ring that he purchased from [employer] for $500, which he states is actually worth $100 million. He states that the police took it because it was evidence of the Nazi war crimes of 6 million jews. He reports that he has pride for his Kiny[place], Afghan, Ukrainian and Pashto heritage. Pt reports that he gave a homeless man (Viet) $60 after the man told him I'll hurt you if you don't give me your money and then followed pt to the front of the house. Pt denies that he invited him in. 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 Pt reports that he had to call the FBI and [place] police prior to admission but he doesn't remember what happened after that. Pt states that he's been drinking up to a half of a fifth of vodka most days lately and tells this lead technical writer don't write that down . He notes that he has a Afghan liver and the vodka goes right through him without negatively affecting him. Denies any other substance use. As we concluded the interview, pt said he wanted to make sure to tell t/w I kissed a girl, Nikia Larson when he was a kid and his gums swelled up a lot. He went to the dentist to tell him he has kids herpes but he's never had an outbreak since then. Pt denies SI, violent ideation He states that he slept great last night and that he had been sleeping during the day prior to that Endorses nightmares Denies AH/VH Meds- Pt reports that he hasn't been taking the Abilify lately b/c it makes him dizzy He thinks he only needs to take Vistaril and melatonin, which he also takes at home Past Psychiatric History: History of multiple inpatient psychiatric hospitalizations. Prescriber: Aminah Gudino ([facility]) Therapist: Vincent Haley ([facility]) denies hx of SA/SIB. Med trials: Risperdal plus Depakote: No effect per patient (discharged on these 2 meds January 2022) Zyprexa Medical Evaluation Reviewed: Yes [facility] Medical History Schizoaffective disorder, bipolar type Alcohol abuse Family History: Father: bipolar/antisocial Social History: Lives in a multifamily home with his grandmother, mother and mother's boyfriend. Patient [facility] a room [facility]. Single. No kids. Unemployed. Highest level of education completed GED. Substance History: Reports vodka use prior to admission, MJ Trauma History: Childhood trauma from living with his father Diagnostics Vital Signs (24Hr): Vital Signs - 24 hr 09/21/25 16:36 09/22/25 06:41 09/22/25 12:39 Temperature 97.3 F 97.6 F 98.1 F Pulse Rate 110 H 72 84 Respiratory Rate 18 20 16 Blood Pressure 125/68 113/70 130/80 Pulse Oximetry 98 97 98 Oxygen Delivery Method Room Air Room Air Room Air BMI result Body Mass Index 25.7 Labs 09/21/25 10:17 09/21/25 10:17 Labs: Laboratory Results - last 48 hr 09/21/25 09/21/25 10:17 16:47 WBC 6.0 RBC 5.28 Hgb 15.2 Hct 47.0 MCV 89.0 MCH 28.8 MCHC 32.3 RDW 12.9 Plt Count 340 MPV 9.9 Immature Gran % (Auto) 0.3 Neut % (Auto) 61.1 Lymph % (Auto) 30.0 [place] % (Auto) 7.8 Eos % (Auto) 0.5 Baso % (Auto) 0.3 Lymph # (Auto) 1.8 [place] # (Auto) 0.5 Eos # (Auto) 0.0 Baso # (Auto) 0.0 Abs Immat Gran (auto) 0.02 Absolute Neuts (auto) 3.7 Absolute Nucleated RBC 0.000 Nucleated RBC % (auto) 0.0 Sodium 145 Potassium 4.2 Chloride 109 H Carbon Dioxide 26 Anion Gap 14 BUN 13 Creatinine 0.89 Estim Creat Clear Calc 103.9 Estimated GFR > 60 Random Glucose 106 Calcium 9.8 Total Bilirubin 0.3 AST 33 ALT 56 H Alkaline Phosphatase 71 Total Protein 7.9 Albumin 5.5 H Urine Color Yellow Urine Appearance Clear Urine pH 5.5 Ur Specific [place] >= 1.030 H Urine Protein 30 (1+) H Urine Glucose (UA) Negative Urine Ketones 15 Urine Blood Negative Urine Nitrite Negative Ur Leukocyte Esterase Negative Urine RBC 0-2 Urine WBC 0-5 Ur Squamous Epith Cells 0-2 Urine Bacteria None Seen Hyaline Casts 0-2 Urine Opiates Screen Not Detected Ur Buprenorphine Scrn Not Detected Ur Oxycodone Screen Not Detected Urine Methadone Screen Not Detected Urine Fentanyl Screen Not Detected Ur Barbiturates Screen Not Detected Ur Phencyclidine Scrn Not Detected Ur Amphetamines Screen Not Detected U Benzodiazepines Scrn Not Detected Urine Cocaine Screen Not Detected U Marijuana (THC) Screen POSITIVE H Ethyl Alcohol 229 Meds/Allergies Meds Home Medications ?Medication ?Instructions ?Recorded ?Confirmed ?Type olanzapine 10 mg tablet See Rx Instructions .Route . COMPLEX 09/21/25 09/21/25 History Allergies Allergies Allergy/AdvReac Type Severity Reaction Status Date / Time No Known Allergies Allergy Verified 09/21/25 09:49 Mental Status Exam Mental Status Exam Narrative: Appearance: Casually dressed. Grooming/hygiene wnl. Good eye contact Attitude:Cooperative Speech: Excessive but redirectable, otherwise wnl Motor activity: Calm and without any tics, tremors or dyskinesias. Steady gait Mood: good Affect: appropriate, reactive Thought process: disorganized Thought content: paranoid delusions. Denies SI/violent ideation Perception: Denies AH/VH and does not appear to respond to internal stimuli Alert/oriented in all spheres Insight: severely impaired Judgment: impaired Assessment & Plan Assessment & Plan (1) Schizoaffective disorder, bipolar type: Status: Acute Code(s): F25.0 - Schizoaffective disorder, bipolar type (2) Chronic post-traumatic stress disorder (PTSD): Status: Acute Code(s): F43.12 - Post-traumatic stress disorder, chronic (3) Alcohol use disorder: Status: Acute Code(s): F10.90 - Alcohol use, unspecified, uncomplicated Plan Mr. Duffy is a 25 y/o SWM with h/o schizoaffective disorder bipolar type and PTSD who was evaluated by Crisis due to his mother's concerns about him calling the police, telling them he has classified information and stating that his mother abuses him. He was transferred to [facility] for safety and stabilization. Pt admits that he hasn't been taking the Abilify at home lately since it made him feel dizzy. He reports drinking vodka qd lately,while off the Abilify. He is agreeable w/ taking the Abilif here for now, in a monitored setting. Will reivew his prior med trials to consider alternative options, consider ESPARZA Admitted to for safety and stabilization 15 min safety checks VS per unit standard labs reviewed. U tox pos for cannabis, BAL 229. Otherwise unremarkable. Continue Abilify 15 mg qhs, melatonin, prn hydroxyzine for anxiety Monitor for signs/sx of ETOH w/d, tx w/ prn lorazepam Patient educated on: medication risk/benefits, substance abuse and therapeutic strategies Informed Consent: further education needed Reason for continued inpatient stay Substantial Risk for: med/psych decompensation Statement Statement: I have reviewed the history and physical and performed a pertinent examination on my patient. No changes have occurred unless specified. If the History and Physical was not performed prior to admission, the Hospitalist's service will be consulted for completing the admission physical. Time Spent With Patient Time: Total time managing care of this patient today ____ minutes.
--- NOTE | 2025-09-22 14:22 | PC.NURSE ---
Florentino was admitted to M3 at 1200 from [facility] pod for treatment of mood disorder with psychosis. He signed a CV, then a 3 day on arrival to the unit. On admission he is alert, fully oriented, calm, pleasant and cooperative. He is guarded and offers none of the psychotic thought content noted in his crisis evaluation. Mood is euthymic, affect is broad. Pt denies auditory, visual, tactile or other hallucinations. Thought Process linear. He denies ideation, plan or intent to harm self or others. Appetite is good with no recent wt loss or gain. Sleep is good. Focus is good. Per crisis evaluation pt stopped taking his abilify and has been drinking alcohol daily. He restarted abilfy in the pod. Tox screen is positive for alcohol and THC. He denies medical issues and denies physical complaint. Safety Checks are q 15 minutes.
[2025-09-22 19:45] VITALS: BP 139/85; PULSE 124; TEMP 36.7; O2SAT 97
[2025-09-22 21:30] VITALS: PULSE 84
[2025-09-23 08:00] VITALS: BP 110/69; PULSE 95; RESP 14; TEMP 36.6; O2SAT 98
[2025-09-23 08:23] LABS: Cholesterol 165 mg/dL (<200); HDL Cholesterol 53 mg/dL (>40); Triglycerides 98 mg/dL (<150)
--- NOTE | 2025-09-23 08:43 | P.CONHOSP_ITS ---
History of Present Illness Data of Consult Service Date: 09/23/25 Primary Care Provider: Unknown Physician HPI Reason for consult: Medical Consult 25-year-old male with past medical history of PTSD, bipolar disorder, schizoaffective disorder, substance abuse presented to the ED with increased delusions. Patient also reportedly not med adherent. In the ED his CBC was without leukocytosis or anemia, slight elevation in ALT, slightly elevated albumin. BAL 229. Urinalysis without evidence of infection, U tox positive for marijuana. On exam he has no concerns except for finding a place to go. Any past medical or surgical history. Review of Systems 2 Review of Systems: Denies any shortness of breath, chest pain, headaches, dysuria, abdominal pain or discomfort, nausea, vomiting or diarrhea. Denies fever or chills. PMFSH Medical History Schizoaffective disorder, bipolar type Alcohol abuse Social History Household Members: Family Household Members Other:: Mom, her bf, grandmother Housing: House Do you presently have visiting nurse or other home services: No Alcohol intake: current Alcohol intake frequency: 3 or more drinks per day Alcohol type: beer and hard liquor Patient Tobacco Use Status: Former Tobacco user Tobacco use type: Cigarette Smoked in Last 30 Days: No e-Cigarette/Vaping Use: Never Used Patient Interested in Nicotine Replacement: No Second Hand Smoke Exposure: No Use of substances other than those prescribed or required for medical reasons: No Substance Use Type: Caffiene Currently Displaying Signs/Symptoms of Drug Intoxication Withdrawal: No Have you been hit, kicked, punched, or otherwise hurt by someone within the past year? If so, by whom?: No Do you feel safe in your current relationship?: No Current Relationship Is there a partner from a previous relationship who is making you feel unsafe now?: No Are you made to feel afraid or neglected: No Advance Directives: No Advance Directives Information Provided: No Do you have thoughts of harming others: None Do you have a plan to hurt others: No Plan Recently lost weight without trying: No Eating poorly because of decreased appetite: No Nutrition Risks: No Nutritional Risk Poor oral hygiene: No service: No Sexual orientation: Straight/Heterosexual Meds Allergies Allergy/AdvReac Type Severity Reaction Status Date / Time No Known Allergies Allergy Verified 09/21/25 09:49 Active Medications: Current Medications Acetaminophen (Acetaminophen 325 Mg Tablet) 650 mg PO Q6H PRN PRN Reason: Headache/Pain, Scale 1-10 Al Hydroxide/Mg Hydroxide (Magnesium Hydrox/Alum Hydrox 30 Ml Oral.Susp) 30 ml PO Q6H PRN PRN Reason: Heartburn/Nausea Aripiprazole (Aripiprazole 15 Mg Tablet) 15 mg PO BEDTIME VIC Last Admin: 09/22/25 21:35 Dose: 15 mg Hydroxyzine HCl (Hydroxyzine Hcl 25 Mg Tablet) 25 mg PO BID PRN PRN Reason: mild anxiety Last Admin: 09/23/25 01:22 Dose: 25 mg Ibuprofen (Ibuprofen 600 Mg Tablet) 600 mg PO Q8H PRN PRN Reason: Pain, Moderate(Pain Scale 4-6) Last Admin: 09/22/25 21:39 Dose: 600 mg Magnesium Hydroxide (Milk Of Magnesia 30 Ml Oral.Susp) 30 ml PO DAILY PRN PRN Reason: Constipation Melatonin (Melatonin 3 Mg Tablet) 6 mg PO BEDTIME PRN PRN Reason: Insomnia Last Admin: 09/22/25 21:35 Dose: 6 mg Nicotine Polacrilex (Nicotine Polacrilex 2 Mg Gum) 4 mg BUCCAL Q2H PRN PRN Reason: Nicotine Cravings Trazodone HCl (Trazodone Hcl 50 Mg Tablet) 50 mg PO BEDTIME MRX1 PRN PRN Reason: Insomnia Home Medications ?Medication ?Instructions ?Recorded ?Confirmed ?Last Taken ?Type olanzapine 10 mg tablet See Rx Instructions .Route . COMPLEX 09/21/25 09/21/25 Unknown History Physical Exam 2 Vital Signs and Narrative: Vital Signs: Last Vital Signs Temp 98.1 F 09/22/25 19:45 Pulse 84 09/22/25 21:30 Resp 16 09/22/25 12:39 BP 139/85 09/22/25 19:45 Pulse Ox 97 09/22/25 19:45 O2 Del Method Room Air 09/22/25 19:45 BMI result Body Mass Index 25.7 Alert and oriented X3, able to give good history. Rapid speech, anxiety Neuro: CN II-X11 intact, no deficits, visual acuity intact EYES: PERRLA, EOM intact ENT: Hearing intact, lips moist Cardiac: S1 S2 RRR, No ectopy Pulmonary: lungs clear to auscultation, No increased WOB. Abdominal: BS active in all 4 quadrants, no guarding or tenderness MSK: Strength 5/5 upper and lower extremities : Deferred Extremities: No edema in lower extremities, ambulating with a steady gait Psych: Rapid speech, anxious Skin: Warm and dry, Intact Results Labs 09/21/25 10:17 09/21/25 10:17 Labs: Laboratory Results - last 24 hr 09/23/25 07:56 Estimat Average Glucose 100 Hemoglobin A1c % 5.1 Triglycerides 98 Cholesterol 165 LDL Cholesterol, Calc 93 HDL Cholesterol 53 Assessment and Plan (1) Schizoaffective disorder, bipolar type: Status: Acute Plan 25-year-old male with past medical history as listed below presented to the ED with delusional behaviors. Now admitted for psychiatric stabilization. Schizophrenia/PTSD/bipolar disorder/issues with medication adherence Treatment per psychiatric team Thank you for allowing me to participate in the care of this patient. Will follow with you, please notify medical provider with any changes in condition or concerns.
--- NOTE | 2025-09-23 19:46 | HO.PSYCHPN ---
Subjective Subjective Date of Service: 09/23/25 Reason For Visit: decompensated schizoaffetive d/o Subjective Notes: Mendoza Warning and 3 Day Interim History: chart reviewed. case discussed with team 3-day expires 09/25 Per nursing report, pt asked for the phone number for the [place] [employer] last night Got 4 hrs of fragmented sleep, c/o nightmares. Reportedly was fixated on reporting that he got 6 hrs of sleep. Per SW- mom wants pt to attend substance use program Pt greeted t/w multiple times in the hallway today. He reports that he's feeling 'great and slept 6 hrs. He reports that his mom wants him to go to a program to detox off of Abilify and Vistaril. He notes that he never took the Abilify after he left the hospital, so he doesn't really need to be detoxed from it. He states that he doesn't have an alcohol problem and the amount of alcohol that he drinks doesn't negatively affect him. He put his arms straight out for about 2 minutes to demonstrate that he has no tremors and kept them out after t/w told him he could put them down. He had no tremors at all. Pt states that he doesn't want to be in the hospital b/c he feels uncomfortable here. T/W asked if pt called the [employer] [facility]. He stated he didn't call but confirmed he wanted the number but didn't want to share more details. No behavioral issues Denies SI/violent ideation, AH/VH Medication Compliance: Yes (took Abilify last night. Took prn Vistaril today, asked for an extra dose ) Side effects from medications: No Review of Systems Review of Systems Yes all other systems are reviewed and are negative Mental Status Exam Mental Status Exam Narrative: Appearance: Casually dressed. Grooming/hygiene wnl. Good eye contact Attitude: somewhat guarded but generally cooperative Speech: Fluent and wnl in regard to volume, tone, prosody Motor activity: Calm and without any tics, tremors or dyskinesias. Steady gait Mood: great Affect: anxious, superficially bright at times Thought process: disorganized Thought content: ? paranoid delusions related to [place] [employer] (see HPI). Denies SI/violent ideation Perception: Denies AH/VH and does not appear to respond to internal stimuli Alert/oriented in all spheres Memory for recent events grossly intact Insight: impaired Judgment: impaired but is taking meds here Diagnostics Vital Signs (24Hr): Vital Signs - 24 hr 09/22/25 21:30 09/23/25 08:00 Temperature 97.9 F Pulse Rate 84 95 Respiratory Rate 14 Blood Pressure 110/69 Pulse Oximetry 98 Oxygen Delivery Method Room Air BMI result Body Mass Index 25.7 Labs 09/21/25 10:17 09/21/25 10:17 Labs: Laboratory Results - last 48 hr 09/23/25 07:56 Estimat Average Glucose 100 Hemoglobin A1c % 5.1 Triglycerides 98 Cholesterol 165 LDL Cholesterol, Calc 93 HDL Cholesterol 53 EKG EKG: reviewed EKG Comment: Ordering Physician: Hardik Salmon DO Date of Service: 09/22/25 Test Reason : prolong qtc Blood Pressure : */* mmHG Vent. Rate : 69 BPM Atrial Rate : 69 BPM P-R Int : 176 ms QRS Dur : 88 ms QT Int : 342 ms P-R-T Axes : 51 65 10 degrees QTcB Int : 366 ms Sinus rhythm with marked sinus arrhythmia Otherwise normal ECG When compared with ECG of 17-Aug-2025 Medications Medications Current Medications Acetaminophen (Acetaminophen 325 Mg Tablet) 650 mg PO Q6H PRN PRN Reason: Headache/Pain, Scale 1-10 Al Hydroxide/Mg Hydroxide (Magnesium Hydrox/Alum Hydrox 30 Ml Oral.Susp) 30 ml PO Q6H PRN PRN Reason: Heartburn/Nausea Aripiprazole (Aripiprazole 15 Mg Tablet) 15 mg PO BEDTIME VIC Last Admin: 09/22/25 21:35 Dose: 15 mg Hydroxyzine HCl (Hydroxyzine Hcl 25 Mg Tablet) 25 mg PO QID PRN PRN Reason: mild anxiety Ibuprofen (Ibuprofen 600 Mg Tablet) 600 mg PO Q8H PRN PRN Reason: Pain, Moderate(Pain Scale 4-6) Last Admin: 09/22/25 21:39 Dose: 600 mg Magnesium Hydroxide (Milk Of Magnesia 30 Ml Oral.Susp) 30 ml PO DAILY PRN PRN Reason: Constipation Melatonin (Melatonin 3 Mg Tablet) 6 mg PO BEDTIME PRN PRN Reason: Insomnia Last Admin: 09/22/25 21:35 Dose: 6 mg Nicotine Polacrilex (Nicotine Polacrilex 2 Mg Gum) 4 mg BUCCAL Q2H PRN PRN Reason: Nicotine Cravings Trazodone HCl (Trazodone Hcl 50 Mg Tablet) 50 mg PO BEDTIME MRX1 PRN PRN Reason: Insomnia Allergies Allergies Allergy/AdvReac Type Severity Reaction Status Date / Time No Known Allergies Allergy Verified 09/21/25 09:49 Assessment & Plan Assessment & Plan (1) Schizoaffective disorder, bipolar type: Status: Acute Code(s): F25.0 - Schizoaffective disorder, bipolar type (2) Alcohol use disorder: Status: Acute Code(s): F10.90 - Alcohol use, unspecified, uncomplicated (3) Chronic post-traumatic stress disorder (PTSD): Status: Acute Code(s): F43.12 - Post-traumatic stress disorder, chronic Plan Patient is a 25-year-old male with history of schizoaffective disorder bipolar type and PTSD who presented to ER via ambulance after his mother requested assistance d/t patient having delusions secondary to medication noncompliance Prior Med Trials: Risperdal plus Depakote: No effect per patient (discharged on these 2 meds January 2022) Olanzapine- Clozapine Thorazine prn lithium olanzapine -D/C'd from M3 in 03/2023 on lithium 1200 mg qhs + olanzapine 20 mg qhs. Reported on following M3 admission that the olanzapine makes him feel like crap . -D/C'd from M3 in 08/2025 on Abilify 15 mg, which he tolerated and reported I feel like the Abilify is good . Plan: Admitted to M3 for safety and stabilization 15 min safety checks VS per unit standard labs reviewed. U tox pos for cannabis, BAL 229. Otherwise unremarkable. Continue Abilify 15 mg qhs, melatonin, prn hydroxyzine for anxiety Monitor for signs/sx of ETOH w/d. 09/23- pt is currently med adherent but admits that he didn't take Abilify at all after his last admission since it made him dizzy. He denies current med SE. Given h/o poor med adherence, will encourage pt to consider an ESPARZA. 12B expires 09/25 and will encourage pt to retract for further stabilization. Patient educated on: diagnosis, medication risk/benefits and substance abuse Informed Consent: does not understand and further education needed Reason for continued inpatient stay Substantial Risk for: med/psych decompensation Time Spent With Patient Time: Total time managing care of this patient today ____ minutes.
[2025-09-23 20:00] VITALS: BP 121/70; PULSE 103; RESP 16; TEMP 2.7; TEMP 36.8; O2SAT 98
[2025-09-24 07:00] VITALS: BMI 26.4
[2025-09-24 08:15] VITALS: BP 106/60; PULSE 92; RESP 14; TEMP 36.5; O2SAT 99
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
[2025-09-24 19:42] VITALS: BP 117/62; PULSE 84; RESP 16; TEMP 36.7; O2SAT 97
[2025-09-25 07:41] VITALS: BP 120/76; PULSE 81; RESP 20; TEMP 36.6; O2SAT 99
[2025-09-25 19:30] VITALS: BP 111/62; PULSE 97; RESP 18; TEMP 36.5; O2SAT 98
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
[2025-09-26 08:00] VITALS: BP 115/70; PULSE 90; RESP 90; TEMP 36.4; O2SAT 99
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
[2025-09-26 19:56] VITALS: BP 127/73; PULSE 84; RESP 16; TEMP 36.7; O2SAT 98
--- NOTE | 2025-09-27 07:50 | P.PNPSI_ITS ---
Subjective Subjective Date of Service: 09/27/25 Reason For Visit: decompensated schizoaffetive d/o Subjective Notes: 3 Day Interim History: met with patient. Discussed with Nursing. Pleasant. Slept 5 hours. Three day notice in place. Remains bright in affect and pleasant. Did call 911 asking for a wellness check on his grandmother last night. Reports to entry writer that grand mom stopped answering the phone and would not give him a straight answer as to if his wall was there which had his ID etc. . Reported wanting the police to check if his wallet was there. Reports he is doing well and eager for discharge And there is an agreement he can stay at his grandma's house for 1 night, then he has enough money to either rent a room or spend some time in a hotel. reports mood is stable. Sleep okay. No med concerns. Denied any psychosis as part of his presentation. Denies feeling depressed. Medication Compliance: Yes Side effects from medications: No Attending Groups: Yes Review of Systems Acute medical concerns: No Review of Systems Review of Systems denied Mental Status Exam Mental Status Exam Narrative: Appearance: Casually dressed. Grooming/hygiene wnl. Good eye contact. Attitude: Engaging, cooperative. Speech: Fluent and wnl in regard to volume, tone, prosody Motor activity: Calm and without any tics, tremors or dyskinesias. Steady gait Mood: good Affect: appropriate, generally bright Thought process: Generally goal directed, much more organized than on admission Thought content: No overt delusional/paranoid content. Denies SI/violent ideation. Perception: Denies AH/VH and does not appear to respond to internal stimuli Alert/oriented in all spheres Memory for recent events grossly intact Insight: impaired but improving Judgment: fair Diagnostics Vital Signs (24Hr): Vital Signs - 24 hr 09/26/25 08:00 09/26/25 19:56 Temperature 97.6 F 98.1 F Pulse Rate 90 84 Respiratory Rate 90 H 16 Blood Pressure 115/70 127/73 Pulse Oximetry 99 98 Oxygen Delivery Method Room Air Room Air BMI result Body Mass Index 26.4 Labs 09/21/25 10:17 09/21/25 10:17 Medications Medications Current Medications Acetaminophen (Acetaminophen 325 Mg Tablet) 650 mg PO Q6H PRN PRN Reason: Headache/Pain, Scale 1-10 Al Hydroxide/Mg Hydroxide (Magnesium Hydrox/Alum Hydrox 30 Ml Oral.Susp) 30 ml PO Q6H PRN PRN Reason: Heartburn/Nausea Aripiprazole (Aripiprazole 15 Mg Tablet) 15 mg PO BEDTIME VIC Last Admin: 09/26/25 21:44 Dose: 15 mg Calcium Carbonate (Calcium Carbonate 750 Mg Tab.Chew) 750 mg PO Q4H PRN PRN Reason: Heartburn Last Admin: 09/25/25 19:51 Dose: 750 mg Clonidine HCl (Clonidine Hcl 0.1 Mg Tablet) 0.1 mg PO BEDTIME PRN; Protocol PRN Reason: insomnia and/or nightmares Hydroxyzine HCl (Hydroxyzine Hcl 25 Mg Tablet) 25 mg PO QID PRN PRN Reason: mild anxiety Ibuprofen (Ibuprofen 600 Mg Tablet) 600 mg PO Q8H PRN PRN Reason: Pain, Moderate(Pain Scale 4-6) Last Admin: 09/27/25 02:26 Dose: 600 mg Lorazepam (Lorazepam 1 Mg Tablet) 1 mg PO Q6H PRN PRN Reason: signs of alcohol withdrawal Magnesium Hydroxide (Milk Of Magnesia 30 Ml Oral.Susp) 30 ml PO DAILY PRN PRN Reason: Constipation Melatonin (Melatonin 3 Mg Tablet) 6 mg PO BEDTIME PRN PRN Reason: Insomnia Last Admin: 09/26/25 21:44 Dose: 6 mg Nicotine Polacrilex (Nicotine Polacrilex 2 Mg Gum) 4 mg BUCCAL Q2H PRN PRN Reason: Nicotine Cravings Trazodone HCl (Trazodone Hcl 50 Mg Tablet) 50 mg PO BEDTIME MRX1 PRN PRN Reason: Insomnia Allergies Allergies Allergy/AdvReac Type Severity Reaction Status Date / Time No Known Allergies Allergy Verified 09/21/25 09:49 Assessment & Plan Assessment & Plan (1) Schizoaffective disorder, bipolar type: Status: Acute Code(s): F25.0 - Schizoaffective disorder, bipolar type (2) Chronic post-traumatic stress disorder (PTSD): Status: Acute Code(s): F43.12 - Post-traumatic stress disorder, chronic (3) Alcohol use disorder: Status: Acute Code(s): F10.90 - Alcohol use, unspecified, uncomplicated Plan Mr. Duffy is a 25 y/o SWM with h/o schizoaffective disorder bipolar type and PTSD who was evaluated by Crisis due to his mother's concerns about him calling the police, telling them he has classified information and stating that his mother abuses him. He was transferred to [facility] for safety and stabilization. Pt admits that he hasn't been taking the Abilify at home lately since it made him feel dizzy. He reports drinking vodka qd lately,while off the Abilify. He is agreeable w/ taking the Abilif here for now, in a monitored setting. Will reivew his prior med trials to consider alternative options, consider ESPARZA Admitted to for safety and stabilization 15 min safety checks VS per unit standard labs reviewed. U tox pos for cannabis, BAL 229. Otherwise unremarkable. Continue Abilify 15 mg qhs, melatonin, prn hydroxyzine for anxiety Monitor for signs/sx of ETOH w/d, tx w/ prn lorazepam 09/24: 3 day retracted and signed new 3-day, expires Tu09/29. Med adherent and denies current med SE. Less focused on delusional content. Per JUAN FRANCISCO's phone call w/ pt's mom today, mom actually does want pt to be transferred to [place] and doesn't want him to take psychotropic meds, which is consistent with pt's report today. Pt doesn't want to take psychotropic meds but agrees to take Abilify temporarily after d/c since he wants to stay with his dad and paternal GM, who reportedly require that pt continue his meds in order to stay there. He does not want to take an ESPARZA and is not committable. Pt declines to take a med for sleep/nightmares but will add prn clonidine in case he changes his mind. 125: continue current tx plan. Insight/judgment are improving. He acknowledges that he needs to abstain from ETOH and reports that he will. He declined to take a med to reduce ETOH cravings. Med adherent. Plans to live w/ his father and grandmother, who want him to take the Abilify and he plans to continue taking it. D/C planned for 09/29 when 3-day expires. 09/26/2025: No changes to current plan. Three-day notice in place which expires 09/29/2025 09/27/2025: No changes Reason for continued inpatient stay Substantial Risk for: rapid decompensation Time Spent With Patient Time: Total time managing care of this patient today ____ minutes.
[2025-09-27 08:00] VITALS: BP 114/67; PULSE 82; RESP 14; TEMP 36.6; O2SAT 100
[2025-09-27 19:10] VITALS: BP 121/65; PULSE 92; RESP 16; TEMP 36.4; O2SAT 97
[2025-09-28 08:00] VITALS: BP 126/70; PULSE 83; RESP 16; TEMP 36.3; O2SAT 100
--- NOTE | 2025-09-28 14:48 | P.PNPSI_ITS ---
Subjective Subjective Date of Service: 09/28/25 Reason For Visit: decompensated schizoaffetive d/o Subjective Notes: 3 Day Healthcare Proxy: No Guardianship: No Medical Problems Affecting Mental Status: No Interim History: Medical record and nursing notes reviewed; case discussed during rounds with team/nursing staff, and met with patient for supportive therapy/psychoeducation, as well as medication management. Meet with patient in assigned room. Observed mattress on the floor as patient report that his home mattress was also on the floor. Denies SI/SIB/HI/AHV. Denies anxiety or depression. Report he went to bed right after dinner about 1800 and slept until midnight. When asked when he did on night when he is not sleeping. He says he rested in bed. Report slept for about 6 hours. Compliant with meds: Abilify 15mg . Only take PRN Motrin per record- no other PRN. Per nursing, kitchen called to inform that patient call them threatening them d/t them poisoning his quesadilla. Patient told them if it happened again he would go after them. Patient agreed not to call kitchen again after speaking to RN, it was reported that the actual quesadilla happened here with him last admission. Staff advised patient not to order it again here in the future and patient is receptive. Patient appears to be paranoid, delusions, would benefit more with longer stay for medication management to address symptoms. He has special sleeping pattern that work for him. However, patient is on 3-day notice and would like to go home early. Reports that he spoke to his mom, mom says he can stay with her but dad will pick him up tomorrow. Denies side effects from Abilify, denies alcohol craving. to be honey I love alcohol but I already told my therapist, I quit alcohol and states that he has no desire to drink alcohol. Will continue with curent treatment plan. Tentative will be discharged tomorrow as 3-day . Will work on sending medication to [facility]- [facility], [facility]. Medication Compliance: Yes Side effects from medications: No Attending Groups: Intermittent Review of Systems Acute medical concerns: No Medical Review of Systems: unchanged Review of Systems Review of Systems Constitutional: Denies fatigue and Denies fever(s) Cardiovascular: Denies chest pain and Denies dyspnea Respiratory: Denies dyspnea Gastrointestinal: Denies abdominal pain Psychiatric: denies suicidal ideation Endocrine: Denies fatigue Yes all other systems are reviewed and are negative Mental Status Exam Mental Status Exam Narrative: Appearance: Casually dressed. Grooming/hygiene wnl. Good eye contact. Attitude: Engaging, pleasant and cooperative. Speech: Fluent and wnl in regard to volume, tone, prosody Motor activity: Calm and without any tics, tremors or dyskinesias. Steady gait Mood: good . No anxiety or depression Affect: appropriate, generally bright Thought process: Generally goal directed, want to leave early on 3-day notice Thought content: Denies SI/violent ideation. He is paranoid, delusions. no CAH Perception: Denies AH/VH and does not appear to respond to internal stimuli Alert/oriented in all spheres Memory for recent events grossly intact Insight: impaired but improving Judgment: fair Diagnostics Vital Signs (24Hr): Vital Signs - 24 hr 09/27/25 19:10 09/28/25 08:00 Temperature 97.6 F 97.4 F Pulse Rate 92 83 Respiratory Rate 16 16 Blood Pressure 121/65 126/70 Pulse Oximetry 97 100 Oxygen Delivery Method Room Air Room Air BMI result Body Mass Index 26.4 Labs 09/21/25 10:17 09/21/25 10:17 Medications Medications Current Medications Acetaminophen (Acetaminophen 325 Mg Tablet) 650 mg PO Q6H PRN PRN Reason: Headache/Pain, Scale 1-10 Al Hydroxide/Mg Hydroxide (Magnesium Hydrox/Alum Hydrox 30 Ml Oral.Susp) 30 ml PO Q6H PRN PRN Reason: Heartburn/Nausea Aripiprazole (Aripiprazole 15 Mg Tablet) 15 mg PO BEDTIME VIC Last Admin: 09/27/25 20:17 Dose: 15 mg Calcium Carbonate (Calcium Carbonate 750 Mg Tab.Chew) 750 mg PO Q4H PRN PRN Reason: Heartburn Last Admin: 09/25/25 19:51 Dose: 750 mg Clonidine HCl (Clonidine Hcl 0.1 Mg Tablet) 0.1 mg PO BEDTIME PRN; Protocol PRN Reason: insomnia and/or nightmares Hydroxyzine HCl (Hydroxyzine Hcl 25 Mg Tablet) 25 mg PO QID PRN PRN Reason: mild anxiety Ibuprofen (Ibuprofen 600 Mg Tablet) 600 mg PO Q8H PRN PRN Reason: Pain, Moderate(Pain Scale 4-6) Last Admin: 09/28/25 07:53 Dose: 600 mg Lorazepam (Lorazepam 1 Mg Tablet) 1 mg PO Q6H PRN PRN Reason: signs of alcohol withdrawal Magnesium Hydroxide (Milk Of Magnesia 30 Ml Oral.Susp) 30 ml PO DAILY PRN PRN Reason: Constipation Melatonin (Melatonin 3 Mg Tablet) 6 mg PO BEDTIME PRN PRN Reason: Insomnia Last Admin: 09/27/25 20:16 Dose: 6 mg Nicotine Polacrilex (Nicotine Polacrilex 2 Mg Gum) 4 mg BUCCAL Q2H PRN PRN Reason: Nicotine Cravings Trazodone HCl (Trazodone Hcl 50 Mg Tablet) 50 mg PO BEDTIME MRX1 PRN PRN Reason: Insomnia Allergies Allergies Allergy/AdvReac Type Severity Reaction Status Date / Time No Known Allergies Allergy Verified 09/21/25 09:49 Assessment & Plan Assessment & Plan (1) Schizoaffective disorder, bipolar type: Status: Acute Code(s): F25.0 - Schizoaffective disorder, bipolar type (2) Chronic post-traumatic stress disorder (PTSD): Status: Acute Code(s): F43.12 - Post-traumatic stress disorder, chronic (3) Alcohol use disorder: Status: Acute Code(s): F10.90 - Alcohol use, unspecified, uncomplicated Plan Mr. Duffy is a 25 y/o SWM with h/o schizoaffective disorder bipolar type and PTSD who was evaluated by Crisis due to his mother's concerns about him calling the police, telling them he has classified information and stating that his mother abuses him. He was transferred to [facility] for safety and stabilization. Pt admits that he hasn't been taking the Abilify at home lately since it made him feel dizzy. He reports drinking vodka qd lately,while off the Abilify. He is agreeable w/ taking the Abilif here for now, in a monitored setting. Will review his prior med trials to consider alternative options, consider ESPARZA Admitted to for safety and stabilization 15 min safety checks VS per unit standard labs reviewed. U tox pos for cannabis, BAL 229. Otherwise unremarkable. Continue Abilify 15 mg qhs, melatonin, prn hydroxyzine for anxiety Monitor for signs/sx of ETOH w/d, tx w/ prn lorazepam 12/4: 3 day retracted and signed new 3-day, expires Tu09/29. Med adherent and denies current med SE. Less focused on delusional content. Per SW's phone call w/ pt's mom today, mom actually does want pt to be transferred to [place] and doesn't want him to take psychotropic meds, which is consistent with pt's report today. Pt doesn't want to take psychotropic meds but agrees to take Abilify temporarily after d/c since he wants to stay with his dad and paternal GM, who reportedly require that pt continue his meds in order to stay there. He does not want to take an ESPARZA and is not committable. Pt declines to take a med for sleep/nightmares but will add prn clonidine in case he changes his mind. 09/25: continue current tx plan. Insight/judgment are improving. He acknowledges that he needs to abstain from ETOH and reports that he will. He declined to take a med to reduce ETOH cravings. Med adherent. Plans to live w/ his father and grandmother, who want him to take the Abilify and he plans to continue taking it. D/C planned for 09/29 when 3-day expires. 09/26/2025: No changes to current plan. Three-day notice in place which expires 09/29/2025 09/27/2025: No changes. 09/28/25: Meet with patient in assigned room. Observed mattress on the floor as patient report that his home mattress was also on the floor. Denies SI/SIB/HI/AHV. Denies anxiety or depression. Report he went to bed right after dinner about 1800 and slept until midnight. When asked when he did on night when he is not sleeping. He says he rested in bed. Report slept for about 6 hours. Compliant with meds: Abilify 15mg . Only take PRN Motrin per record- no other PRN. Per nursing, kitchen called to inform that patient call them threatening them d/t them poisoning his quesadilla. Patient told them if it happened again he would go after them. Patient agreed not to call kitchen again after speaking to RN, it was reported that the actual quesadilla happened here with him last admission. Staff advised patient not to order it again here in the future and patient is receptive. Patient appears to be paranoid, delusions, would benefit more with longer stay for medication management to address symptoms. He has special sleeping pattern that work for him. However, patient is on 3-day notice and would like to go home early. Reports that he spoke to his mom, mom says he can stay with her but dad will pick him up tomorrow. Denies side effects from Abilify, denies alcohol craving. to be honey I love alcohol but I already told my therapist, I quit alcohol and states that he has no desire to drink alcohol. Will continue with current treatment plan. Tentative will be discharged tomorrow as 3-day . Patient educated on: medication risk/benefits, substance abuse and therapeutic strategies Informed Consent: understands and further education needed Reason for continued inpatient stay Substantial Risk for: med/psych decompensation Time Spent With Patient Time: Total time managing care of this patient today ____ minutes.
[2025-09-28 20:00] VITALS: BP 130/80; PULSE 81; RESP 16; TEMP 36.3; O2SAT 98
[2025-09-29 07:53] VITALS: BP 116/72; PULSE 91; RESP 14; TEMP 36.6; O2SAT 98
--- NOTE | 2025-09-29 09:22 | P.DS_ITS ---
DS: Providers Provider Date of admission: 09/22/25 11:23 Date of discharge: 09/29/25 Primary care physician: Sulema Physician Attending physician on admission: Stephanie Nova Attending physician on discharge: Stephanie Nova DS: Diagnosis Discharge Diagnosis (1) Schizoaffective disorder, bipolar type: Status: Acute (2) Chronic post-traumatic stress disorder (PTSD): Status: Inactive (3) Alcohol use disorder: Status: Acute DS: Medications Discharge Medications Home Medications: Previous Rx's Abilify 15 mg qhs hydroxyzine melatonin Mental Status Exam Mental Status Exam Narrative: Appearance: Casually dressed. Grooming/hygiene wnl. Good eye contact Attitude:Cooperative Speech: Fluent and wnl in regard to volume, tone, prosody Motor activity: Calm and without any tics, tremors or dyskinesias. Steady gait Mood: ?Great? Affect: appropriate, reactive, generally bright Thought process: Generally goal directed. Thought content: No evidence of paranoid or delusional ideation during interview. Patient denies suicidal and violent ideation. Perception: Denies AH/VH and does not appear to respond to internal stimuli Alert/oriented in all spheres Cognition grossly intact Insight: impaired but improved Judgment: Somewhat impaired but improved. Patient states that we will continue to take his medication upon discharge and he will abstain from alcohol use. DS: Summary Hospital Course Hospital Course: Mr. Duffy is a 25 y/o SWM with h/o schizoaffective disorder bipolar type and PTSD who was evaluated by Crisis due to his mother's concerns about him calling the police, telling them he has classified information and stating that his mother abuses him. He was transferred to [facility] for safety and stabilization. Per Crisis report, pt reported talking w/ the [employer], FBI, and [place] re: highly classified information. He reportedly stated that he quit taking Abilify 2 wks ago and has been drinking alcohol instead bc alcohol helps me survive . Pt's mother reported that she doesn't currently feel safe w/ pt in the home and the plain clothes police officer present during the assessment reported that he has come to pt's home multiple times and that pt had called the [employer] PD reporting that people were tapping his phone. Mother reportedly informed Crisis that pt has been inviting homeless people to the home and can be verbally aggressive. She reportedly wants him to go to a half-way and his grandmother is going to end up kicking him out if his behavior continues and he will end up homeless. Pt reports I've been going through a lot . He's been stressed since he lost a Nazi WWII ring that he purchased from [employer] for $500, which he states is actually worth $100 million. He states that the police took it because it was evidence of the Nazi war crimes of 6 million jews. He reports that he has pride for his Australian, Kosovan, Moroccan and Welsh heritage. Pt reports that he gave a homeless man (Viet) $60 after the man told him I'll hurt you if you don't give me your money and then followed pt to the front of the house. Pt denies that he invited him in. 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 Pt reports that he had to call the [facility] and [employer] police prior to admission but he doesn't remember what happened after that. Pt states that he's been drinking up to a half of a fifth of vodka most days lately and tells this program writer don't write that down . 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 Denies any other substance use. As we concluded the interview, pt said he wanted to make sure to tell t/w I kissed a girl, Nikia Larson when he was a kid and his gums swelled up a lot. He went to the dentist to tell him he has kids herpes but he's never had an outbreak since then. Pt denies SI, violent ideation He states that he slept great last night and that he had been sleeping during the day prior to that Endorses nightmares Denies AH/VH Meds- Pt reports that he hasn't been taking the Abilify lately b/c it makes him dizzy He thinks he only needs to take Vistaril and melatonin, which he also takes at home Past Psychiatric History: History of multiple inpatient psychiatric hospitalizations. Prescriber: Aminah Gudino ([facility]) Therapist: Vincent Haley ([facility]) denies hx of SA/SIB. Med trials: Risperdal plus Depakote: No effect per patient (discharged on these 2 meds January 2022) Cyndyrexa Patient was admitted to on for safety and stabilization placed on 15 minute safety checks. labs were reviewed. Tox screen was positive for cannabis BAL was 229. Otherwise unremarkable. He was continued on Abilify 15 mg q.h.s., hydroxyzine p.r.n. for anxiety, melatonin for insomnia. P.r.n. lorazepam was ordered for signs and symptoms of alcohol withdrawal. Patient signed a 3 day note shortly after admission, which would on 09/25. He retracted the 3 day on 09/24 and signed a new 3-day on the same day that would on 09/29. Patient got 4 hours of fragmented sleep per night the beginning of this hospitalization and reported nightmares. Per nursing staff he was fixated on reporting that he got 6 hours of sleep. He reported that his mood was great . He reported that his mother wanted him to go to a program to detox off of Abilify and Vistaril, which was later corroborated by the mother's report to his social sciences chair. He denied having a problem with alcohol or that alcohol use negatively impacted his mental health in any way. He declined to undergo any treatment for alcohol use disorder upon discharge. Given patient's long history of medication non-adherence leading to the stabilization this program writer encouraged him to consider taking multiple times, which he declined. Patient requested and received phone numbers for the [facility] and [facility] during his admission. He was guarded and discussing the details of the calls. We did discuss his interest in the stated that he was going to listen [facility] but decided against it. He called 911 on 09/27 requesting a wellness check grandmother because she stopped answering the phone after he had already called her multiple times. Patient's insight and judgment gradually improved. He was pleasant cooperative and did not engage in any behaviors that would put at risk of harming self or others. He was visible in milieu. Sleep gradually improved to 6 hours. He noted that he has a particular pattern sleeping that works well for him, which involves going to bed right after dinner around 18:00 and then sleeping till midnight. He was med adherent and denied any medication side effects. He reported that Abilify was helpful for managing his sx, and identified mood swings and lack of sleep as symptoms of bipolar disorder for him. He did not require any lorazepam for alcohol withdrawal. Patient demonstrated less paranoid and delusional ideation by the time of discharge. While this program writer and the team felt that he would benefit from extending his hospital stay for further stabilization, he declined to retract his 3 day when it on 09/29 and he did not meet criteria for involuntary commitment at that time. Pt had gone back and forth as to where he would go upon discharge. He had decided that living with his father and grandmother at her home might be better for his mental health stability, as they had encouraged him to take his medication. He talked about getting a job. He shared that the mixed messages that he got from his parents regarding mental health treatment was confusing. He ultimately decided to return home with his mother shortly before discharge. Discharge Medications on 09/29/25 (medications listed in discharge plan are from most recent hospitalization. This discharge summary was signed after that admission) Abilify 15 mg qd Ibuprofen 600 mg tid prn for pain melatonin 6 mg qhs Status at Discharge Functional status at discharge: independent ambulation Overall status at discharge: patient is progressing back to baseline Time Spent with Patient Time attestation: Total time managing care of this patient today ____ minutes. Time spent: Greater than 30 minutes Specific discharge activities: FTF time with pt, discharge planning Discharge Plan Discharge Anticipated Discharge Date/Time: 09/29/25 11:00 Patient Disposition: Home, Self-Care Discharge Diagnosis: schizoaffective, bipolar type, Alcohol use D/O, chronic PTSD Referrals: Vincent Haley (Therapy) [Other] - 10/02/25 8:15 am Referral Note: IN OFFICE APPOINTMENT Aminah Gudino (Psychiatry) [Other] - 10/08/25 11:20 am Referral Note: TELEHEALTH APPOINTMENT [facility] [Provider Group] - 1 Week Referral Note: 09-28-25 [facility] was added to patients chart. Please call [phone] to schedule a follow up appt within 7-10 days of discharge. No release on file. Florentino stated he doesn't have a PCP as of yet and will get one upon discharge. Discharge Medications: New ibuprofen 600 mg Tablet 600 mg PO TID PRN (Reason: Pain, Moderate(Pain Scale 4-6)) 14 Days Qty: 21 0RF Changed melatonin 3 mg Tablet 6 mg PO BEDTIME 30 Days Qty: 60 0RF Discontinued aripiprazole 15 mg Tablet 15 mg PO BEDTIME 30 Days Qty: 30 0RF olanzapine 10 mg tablet See Rx Instructions .ROUTE .COMPLEX Rx Instructions: take 1 tablet by mouth every day for 3 weeks, then decrease to 1/2 tablets daily No Action Abilify Maintena 400 mg suspension,extended rel syring 400 mg IM QMONTH 28 Days Qty: 1 0RF aripiprazole [Abilify] 20 mg Tablet 20 mg PO BEDTIME 14 Days Qty: 14 0RF clonazepam 1 mg Tablet 1 mg PO BEDTIME 30 Days Qty: 30 0RF chlorpromazine 50 mg tablet 50 mg PO BID 30 Days Qty: 60 0RF aripiprazole 400 mg Suspension,Extended Rel Syring 400 mg IM Q30D 30 Days Qty: 1 0RF Rx Instructions: Next IM due 11/23/2025. epinephrine [EpiPen] 0.3 mg/0.3 mL auto-injector 0.3 mg IM Q10M PRN (Reason: anaphylaxis) Qty: 1 0RF Rx Instructions: for 2 doses clonazepam 1 mg Tablet 0.5 mg PO BID PRN (Reason: agitation/severe anxiety) 14 Days Qty: 14 0RF Discharge Orders: Discharge Order (Routine); Ordered 09/29/25 Ordered By: Carmela Helm Diet: Regular diet Activity on Discharge: No Restrictions Stand Alone Forms: Patient Portal Discharge page, Community Support Print Language: Chinese Care Plan Goals: Maintain mood and safe behaviors Take medications as prescribed Continue to pursue sobriety Practice coping skills Continue with outpatient providers and reach out to them as needed Health Concerns: Mood stability and behaviors Sobriety Plan of Treatment: Follow up with your PCP, psychiatric provider and other outpatient providers regarding above concerns Take medications as prescribed Assessment: Assessment: Risk assessment at time of discharge: Patient was interviewed prior to discharge and found to be fully oriented and without any SI or HI. Patient has improved insight and judgment and wants to continue treatment. Patient is not in imminent risk of harm to self or others and has a safety plan that includes presenting to the closest ER or calling 911 if feeling unsafe. Patient has been observed closely by nursing and unit staff throughout admission; patient has not engaged in any behaviors that suggest dangerousness to self or others and has demonstrated appropriate behaviors and impulse control. Substance abuse treatment and risks discussed with patient who at this time patient declines MAT or help with outpt treatment options including programs; instead patient is choosing to work out sobriety on own Discharge Date/Time: 09/29/25 11:27
--- NOTE | 2025-11-11 08:41 | PM.PSYDC ---
DS: Providers Provider Date of admission: 09/22/25 11:23 Date of discharge: 09/29/25 Primary care physician: Sulema Physician Attending physician on admission: Stephanie Nova Attending physician on discharge: Stephanie Nova DS: Diagnosis Discharge Diagnosis (1) Schizoaffective disorder, bipolar type: Status: Acute (2) Chronic post-traumatic stress disorder (PTSD): Status: Inactive (3) Alcohol use disorder: Status: Acute DS: Medications Discharge Medications Home Medications: Previous Rx's ?Medication ?Instructions ?Recorded ibuprofen 600 mg tablet 600 mg PO TID PRN Pain, 09/28/25 Moderate(Pain Scale 4-6) 14 days #21 tabs melatonin 3 mg tablet 6 mg (2 x 3 mg) PO BEDTIME 09/28/25 Insomnia 30 days #60 tabs aripiprazole 400 mg suspension, 400 mg IM QMONTH 28 days #1 ea 10/20/25 extended rel.intramuscular syringe (Abilify Maintena) aripiprazole 20 mg tablet (Abilify) 20 mg PO BEDTIME 14 days #14 tabs 10/23/25 aripiprazole 400 mg suspension, 400 mg IM Q30D 30 days #1 ea 10/23/25 extended rel.intramuscular syringe chlorpromazine 50 mg tablet 50 mg PO BID 30 days #60 tabs 10/23/25 clonazepam 1 mg tablet 0.5 mg (1/2 x 1 mg) PO BID PRN 10/23/25 agitation/severe anxiety 14 days #14 tabs clonazepam 1 mg tablet 1 mg PO BEDTIME 30 days #30 tabs 10/23/25 epinephrine 0.3 mg/0.3 mL 0.3 mg (0.3 mL) IM Q10M PRN 10/23/25 injection, auto-injector (EpiPen) anaphylaxis #1 ea Mental Status Exam Mental Status Exam Narrative: Appearance: Casually dressed. Grooming/hygiene wnl. Good eye contact Attitude:Cooperative Speech: Fluent and wnl in regard to volume, tone, prosody Motor activity: Calm and without any tics, tremors or dyskinesias. Steady gait Mood: ?Great? Affect: appropriate, reactive, generally bright Thought process: Generally goal directed. Thought content: No evidence of paranoid or delusional ideation during interview. Patient denies suicidal and violent ideation. Perception: Denies AH/VH and does not appear to respond to internal stimuli Alert/oriented in all spheres Cognition grossly intact Insight: impaired but improved Judgment: Somewhat impaired but improved. Patient states that we will continue to take his medication upon discharge and he will abstain from alcohol use. DS: Summary Hospital Course Hospital Course: Mr. Duffy is a 25 y/o SWM with h/o schizoaffective disorder bipolar type and PTSD who was evaluated by Crisis due to his mother's concerns about him calling the police, telling them he has classified information and stating that his mother abuses him. He was transferred to [facility] for safety and stabilization. Per Crisis report, pt reported talking w/ the [employer], FBI, and [place] re: highly classified information. He reportedly stated that he quit taking Abilify 2 wks ago and has been drinking alcohol instead bc alcohol helps me survive . Pt's mother reported that she doesn't currently feel safe w/ pt in the home and the naval police coxswain present during the assessment reported that he has come to pt's home multiple times and that pt had called the [employer] reporting that people were tapping his phone. Mother reportedly informed Crisis that pt has been inviting homeless people to the home and can be verbally aggressive. She reportedly wants him to go to a halfway and his grandmother is going to end up kicking him out if his behavior continues and he will end up homeless. Pt reports I've been going through a lot . He's been stressed since he lost a Nazi WWII ring that he purchased from [employer] for $500, which he states is actually worth $100 million. He states that the police took it because it was evidence of the Nazi war crimes of 6 million jews. He reports that he has pride for his Armenian, Congolese, Taiwanese and Japanese heritage. Pt reports that he gave a homeless man (Viet) $60 after the man told him I'll hurt you if you don't give me your money and then followed pt to the front of the house. Pt denies that he invited him in. 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 Pt reports that he had to call the [employer] [facility] [employer] police prior to admission but he doesn't remember what happened after that. Pt states that he's been drinking up to a half of a fifth of vodka most days lately and tells this greeting card writer don't write that down . He notes that he has a Congolese liver and the vodka goes right through him without negatively affecting him. Denies any other substance use. As we concluded the interview, pt said he wanted to make sure to tell t/w I kissed a girl, Nikia Larson when he was a kid and his gums swelled up a lot. He went to the dentist to tell him he has kids herpes but he's never had an outbreak since then. Pt denies SI, violent ideation He states that he slept great last night and that he had been sleeping during the day prior to that Endorses nightmares Denies AH/VH Meds- Pt reports that he hasn't been taking the Abilify lately b/c it makes him dizzy He thinks he only needs to take Vistaril and melatonin, which he also takes at home Past Psychiatric History: History of multiple inpatient psychiatric hospitalizations. Prescriber: Aminah Gudino ([facility]) Therapist: Vincent Haley ([facility]) denies hx of SA/SIB. Med trials: Risperdal plus Depakote: No effect per patient (discharged on these 2 meds January 2022) Zyprexa Patient was admitted to on CV for safety and stabilization placed on 15 minute safety checks. labs were reviewed. Tox screen was positive for cannabis BAL was 229. Otherwise unremarkable. He was continued on Abilify 15 mg q.h.s., hydroxyzine p.r.n. for anxiety, melatonin for insomnia. P.r.n. lorazepam was ordered for signs and symptoms of alcohol withdrawal. Patient signed a 3 day note shortly after admission, which would on 09/25. He retracted the 3 day on 09/24 and signed a new 3-day on the same day that would on 09/29. Patient got 4 hours of fragmented sleep per night the beginning of this hospitalization and reported nightmares. Per nursing staff he was fixated on reporting that he got 6 hours of sleep. He reported that his mood was great . He reported that his mother wanted him to go to a program to detox off of Abilify and Vistaril, which was later corroborated by the mother's report to his clinical social worker. He denied having a problem with alcohol or that alcohol use negatively impacted his mental health in any way. He declined to undergo any treatment for alcohol use disorder upon discharge. Given patient's long history of medication non-adherence leading to the stabilization this greeting card writer encouraged him to consider taking multiple times, which he declined. Patient requested and received phone numbers for the [facility] and [facility] during his admission. He was guarded and discussing the details of the calls. We did discuss his interest in the stated that he was going to listen [facility] but decided against it. He called 911 on 09/27 requesting a wellness check grandmother because she stopped answering the phone after he had already called her multiple times. Patient's insight and judgment gradually improved. He was pleasant cooperative and did not engage in any behaviors that would put at risk of harming self or others. He was visible in milieu. Sleep gradually improved to 6 hours. He noted that he has a particular pattern sleeping that works well for him, which involves going to bed right after dinner around 18:00 and then sleeping till midnight. He was med adherent and denied any medication side effects. He reported that Abilify and hydroxyzine were helpful for his bipolar disorder, and identified mood swings and lack of sleep as symptoms of bipolar disorder for him. He did not require any lorazepam for alcohol withdrawal. Patient demonstrated less paranoid and delusional ideation by the time of discharge. While this greeting card writer and the team felt that he would benefit from extending his hospital stay for further stabilization, he declined to retract his 3 day when it on 09/29 and he did not meet criteria for involuntary commitment at that time. Pt had gone back and forth as to where he would go upon discharge. He had decided that living with his father and grandmother at her home might be better for his mental health stability, as they had encouraged him to take his medication. He talked about getting a job. He shared that the mixed messages that he got from his parents regarding mental health treatment was confusing. He ultimately decided to return home with his mother shortly before discharge. Status at Discharge Functional status at discharge: independent ambulation Overall status at discharge: patient is progressing back to baseline Time Spent with Patient Time attestation: Total time managing care of this patient today ____ minutes. Time spent: Greater than 30 minutes Specific discharge activities: FTF time with pt, discharge planning Discharge Plan Discharge Anticipated Discharge Date/Time: 09/29/25 11:00 Patient Disposition: Home, Self-Care Discharge Diagnosis: schizoaffective, bipolar type, Alcohol use D/O, chronic PTSD Referrals: Vincent Haley (Therapy) [Other] - 10/02/25 8:15 am Referral Note: IN OFFICE APPOINTMENT Aminah Gudino (Psychiatry) [Other] - 10/08/25 11:20 am Referral Note: TELEHEALTH APPOINTMENT [facility] [Provider Group] - 1 Week Referral Note: 09-28-25 [facility] was added to patients chart. Please call [phone] to schedule a follow up appt within 7-10 days of discharge. No release on file. Florentino stated he doesn't have a PCP as of yet and will get one upon discharge. Discharge Medications: New ibuprofen 600 mg Tablet 600 mg PO TID PRN (Reason: Pain, Moderate(Pain Scale 4-6)) 14 Days Qty: 21 0RF Changed melatonin 3 mg Tablet 6 mg PO BEDTIME 30 Days Qty: 60 0RF Discontinued aripiprazole 15 mg Tablet 15 mg PO BEDTIME 30 Days Qty: 30 0RF olanzapine 10 mg tablet See Rx Instructions .ROUTE .COMPLEX Rx Instructions: take 1 tablet by mouth every day for 3 weeks, then decrease to 1/2 tablets daily No Action Abilify Maintena 400 mg suspension,extended rel syring 400 mg IM QMONTH 28 Days Qty: 1 0RF aripiprazole [Abilify] 20 mg Tablet 20 mg PO BEDTIME 14 Days Qty: 14 0RF clonazepam 1 mg Tablet 1 mg PO BEDTIME 30 Days Qty: 30 0RF chlorpromazine 50 mg tablet 50 mg PO BID 30 Days Qty: 60 0RF aripiprazole 400 mg Suspension,Extended Rel Syring 400 mg IM Q30D 30 Days Qty: 1 0RF Rx Instructions: Next IM due 11/23/2025. epinephrine [EpiPen] 0.3 mg/0.3 mL auto-injector 0.3 mg IM Q10M PRN (Reason: anaphylaxis) Qty: 1 0RF Rx Instructions: for 2 doses clonazepam 1 mg Tablet 0.5 mg PO BID PRN (Reason: agitation/severe anxiety) 14 Days Qty: 14 0RF Discharge Orders: Discharge Order (Routine); Ordered 09/29/25 Ordered By: Carmela Helm Diet: Regular diet Activity on Discharge: No Restrictions Stand Alone Forms: Patient Portal Discharge page, Community Support Print Language: Slovenian Care Plan Goals: Maintain mood and safe behaviors Take medications as prescribed Continue to pursue sobriety Practice coping skills Continue with outpatient providers and reach out to them as needed Health Concerns: Mood stability and behaviors Sobriety Plan of Treatment: Follow up with your PCP, psychiatric provider and other outpatient providers regarding above concerns Take medications as prescribed Assessment: Assessment: Risk assessment at time of discharge: Patient was interviewed prior to discharge and found to be fully oriented and without any SI or HI. Patient has improved insight and judgment and wants to continue treatment. Patient is not in imminent risk of harm to self or others and has a safety plan that includes presenting to the closest ER or calling 911 if feeling unsafe. Patient has been observed closely by nursing and unit staff throughout admission; patient has not engaged in any behaviors that suggest dangerousness to self or others and has demonstrated appropriate behaviors and impulse control. Substance abuse treatment and risks discussed with patient who at this time patient declines MAT or help with outpt treatment options including programs; instead patient is choosing to work out sobriety on own Discharge Date/Time: 09/29/25 11:27
== END 2025-09-29 11:27 | disposition home or self-care (01) | DRG 885 ==
LOC: HO.ED 09-22 11:38 → HO.PADLT16 09-22 11:39
PROVIDERS: Admitting Provider Psychiatry & Neurology Psychiatry; Emergency Provider Emergency Medicine Emergency Medical Services; Visit Provider Psychiatry & Neurology Psychiatry
DX: F25.0 Schizoaffective disorder, bipolar type (principal); F10.90 Alcohol use, unspecified, uncomplicated; F43.12 Post-traumatic stress disorder, chronic; Y90.7 Blood alcohol level of 200-239 mg/100 ml; Z91.148 Patient's other noncompliance with medication regimen for other reason; Z87.891 Personal history of nicotine dependence; Z79.899 Other long term (current) drug therapy
CPT/HCPCS: 36415; 80053; 80061; 80307; 81001; 81003; 83036; 85025; 93005; 99285; S9485

== ENCOUNTER → 2025-09-22 08:58 | Outpatient (BNV) | payer MEDICARE, MEDICAID, SELFPAY | PROVIDERS: Admitting Provider Psychiatry & Neurology Psychiatry; Emergency Provider Emergency Medicine Emergency Medical Services; Visit Provider Internal Medicine | DX: Z13.6 Encounter for screening for cardiovascular disorders (principal) | CPT/HCPCS: 93010 ==

== ENCOUNTER → 2025-09-22 11:23 | Outpatient (BNV) | payer MEDICARE, MEDICAID, SELFPAY | PROVIDERS: Admitting Provider Psychiatry & Neurology Psychiatry; Emergency Provider Emergency Medicine Emergency Medical Services; Visit Provider Psychiatry & Neurology Psychiatry | DX: F25.0 Schizoaffective disorder, bipolar type (principal); F43.12 Post-traumatic stress disorder, chronic; F10.90 Alcohol use, unspecified, uncomplicated | CPT/HCPCS: 90792; 99231; 99232 ==

== ENCOUNTER → 2025-09-22 11:23 | Outpatient (BNV) | payer MEDICARE, MEDICAID, SELFPAY | PROVIDERS: Admitting Provider Psychiatry & Neurology Psychiatry; Emergency Provider Emergency Medicine Emergency Medical Services; Visit Provider Nurse Practitioner Family | DX: F25.0 Schizoaffective disorder, bipolar type (principal) | CPT/HCPCS: 99221 ==

== ENCOUNTER → 2025-10-13 12:33 | Outpatient (BNV) | payer MEDICARE, MEDICAID, SELFPAY | PROVIDERS: Admitting Provider Psychiatry & Neurology Psychiatry; Emergency Provider Emergency Medicine; Visit Provider Nurse Practitioner Family | DX: F25.0 Schizoaffective disorder, bipolar type (principal) | CPT/HCPCS: 99221 ==

== ENCOUNTER → 2025-10-13 12:33 | Outpatient (BNV) | payer MEDICARE, MEDICAID, SELFPAY | PROVIDERS: Admitting Provider Psychiatry & Neurology Psychiatry; Emergency Provider Emergency Medicine; Visit Provider Social Worker | DX: F25.0 Schizoaffective disorder, bipolar type (principal) | CPT/HCPCS: 99232 ==